=== PATIENT | male | born 1940 | race Caucasian/White ===

== ENCOUNTER → 2017-03-29 10:38 | Outpatient (CLI) | payer MEDICARE, OTHER, SELFPAY ==
[2017-03-29 13:01] LABS: Anion Gap 12.6 mEq/L (5-15); Blood Urea Nitrogen 24 mg/dL (7-18); Carbon Dioxide 30 mmol/L (21.0-32.0); Chloride 107 mmol/L (98-107); Creatinine,Serum 1.93 mg/dL (0.70-1.30); Estimated Glomerular Filt Rate 34 ml/min (>60); GFR (African American) 41 ML/MIN (>60); Glucose 130 mg/dL (74-106); Potassium 4.6 mmoL/L (3.5-5.1); Sodium 145 mmol/L (136-145)
[2017-03-29 13:55] LABS: Hemoglobin A1C 5.8 % (0.0-7.0)
== END ==
PROVIDERS: PCP Internal Medicine; Visit Provider Internal Medicine
DX: E11.59 Type 2 diabetes mellitus with other circulatory complications (principal); N18.3 Chronic kidney disease, stage 3 (moderate)
CPT/HCPCS: 36415; 80048; 83036

== ENCOUNTER → 2017-04-06 14:38 | Outpatient (CLI) | payer MEDICARE, OTHER, SELFPAY ==
--- NOTE | 2017-04-06 14:40 | US_ITS ---
US retroperitoneal comp HISTORY: ITS.REASON: ELEVATED LIVER TEST, ABNORMAL CREATININE, S/P STENTS ORDERING PHYSICIAN: Mainor Espinoza PATIENT AGE: 76 years COMPARISON: None FINDINGS: The right kidney is 10 x 5 x 6.5 cm with cortical thinning. No hydronephrosis. No renal mass. The left kidney is 11 x 5 x 7 cm with cortical thinning. No hydronephrosis. IMPRESSION: Bilateral renal cortical thinning otherwise negative renal ultrasound
== END ==
PROVIDERS: Family Provider Internal Medicine; PCP Internal Medicine; Visit Provider Internal Medicine
DX: R94.5 Abnormal results of liver function studies (principal); R94.4 Abnormal results of kidney function studies
CPT/HCPCS: 76770

== ENCOUNTER → 2017-06-26 14:16 | Outpatient (POV) | payer MEDICARE, OTHER, SELFPAY | PROVIDERS: Family Provider Internal Medicine; PCP Internal Medicine; Visit Provider Internal Medicine Nephrology | DX: Z00.00 Encounter for general adult medical examination without abnormal findings (principal) ==

== ENCOUNTER → 2017-06-29 07:53 | Outpatient (CLI) | payer MEDICARE, OTHER, SELFPAY ==
[2017-06-29 08:52] LABS: Basophils % 0.5 % (0.1-2.0); Eosinophils # 0.1 K/mm3 (0.0-0.4); Eosinophils % 1.2 % (0.1-12.0); Hemoglobin 13.5 g/dL (14.1-18.0); Lymphocytes # 1.6 K/mm3 (0.7-4.5); Mean Corpuscular HGB Conc 33.8 g/dL (31.8-35.4); Mean Corpuscular Hemoglobin 33.3 pg (27.0-31.2); Mean Corpuscular Volume 98.6 fl (80-94); Mean Platelet Volume 8.5 fl (7.4-10.4); Monocytes # 0.3 K/mm3 (0.1-1.0); Monocytes % 6.1 % (1.7-9.3); Neutrophils # 2.8 K/mm3 (1.8-7.8); Neutrophils % 59.2 % (37.0-80.0); Platelet Count 155 K/mm3 (142-424); Red Blood Count 4.05 M/mm3 (4.60-6.20); Red Cell Distribution Width 14.8 % (11.5-17.5); White Blood Count 4.7 K/mm3 (4.8-10.8)
[2017-06-29 09:13] LABS: Hemoglobin A1C 5.8 % (0.0-7.0)
[2017-06-29 12:37] LABS: Alanine Aminotransferase 37 U/L (12-78); Albumin Level 4.1 gm/dL (3.4-5.0); Albumin/Globulin Ratio 1.5 (1.1-1.8); Alkaline Phosphatase 86 U/L (46-116); Anion Gap 14.2 mEq/L (5-15); Aspartate Amino Transferase 21 U/L (15-37); Bilirubin,Total 0.6 mg/dL (0.2-1.0); Blood Urea Nitrogen 22 mg/dL (7-18); Calcium 9.3 mg/dL (8.5-10.1); Carbon Dioxide 28 mmol/L (21.0-32.0); Chloride 105 mmol/L (98-107); Creatinine,Serum 1.77 mg/dL (0.70-1.30); Estimated Glomerular Filt Rate 38 ml/min (>60); GFR (African American) 46 ML/MIN (>60); Globulin 2.8 gm/dl (1.3-3.2); Glucose 117 mg/dL (74-106); Potassium 4.2 mmoL/L (3.5-5.1); Sodium 143 mmol/L (136-145); Total Protein,Serum 6.9 gm/dL (6.4-8.2)
[2017-06-29 12:45] LABS: Prostate Specific Ag Screen 4.8 ng/mL (0.0-4.0)
[2017-06-29 14:10] LABS: Chol/HDL Ratio 4.2 (1-3.5); Cholesterol 146 mg/dL (140-200); HDL Cholesterol 35 mg/dL (27-67); LDL Cholesterol 66 mg/dL (0-130); Triglycerides 225 mg/dL (30-200); Uric Acid 9.4 mg/dL (2.6-7.2); VLDL Cholesterol 45 mg/dL (0-40)
== END ==
PROVIDERS: Urology; Visit Provider Internal Medicine
DX: Z79.899 Other long term (current) drug therapy (principal); E78.5 Hyperlipidemia, unspecified; Z12.5 Encounter for screening for malignant neoplasm of prostate
CPT/HCPCS: 36415; 80053; 80061; 83036; 84550; 85025; G0103

== ENCOUNTER → 2017-09-20 12:40 | Outpatient (CLI) | payer MEDICARE, OTHER, SELFPAY ==
--- NOTE | 2017-09-20 12:43 | US_ITS ---
US kidney retroperitoneal comp HISTORY: ITS.REASON: CKD STAGE 3 ORDERING PHYSICIAN: Poncho Garcia PATIENT AGE: 77 years Comparison: None FINDINGS: The right kidney is 10 x 5 x 5 cm. There is mild cortical thinning. No hydronephrosis. Unremarkable echogenicity. No obvious renal mass. The left kidney is 11 x 4.5 x 5.8 cm showed some cortical thinning and cortical scarring along the lower pole. Unremarkable echogenicity with no evidence of mass or hydronephrosis. Bilateral renal blood flow is noted. IMPRESSION: Bilateral renal cortical thinning/scarring. No hydronephrosis
[2017-09-20 13:38] LABS: Microscopic, Urine URINE MICROSCOPIC (MICROSCOPIC)
[2017-09-20 14:05] LABS: Basophils % 0.5 % (0.1-2.0); Eosinophils # 0.1 K/mm3 (0.0-0.4); Eosinophils % 1.1 % (0.1-12.0); Hematocrit 39.9 % (42.0-52.0); Hemoglobin 13.3 g/dL (14.1-18.0); Lymphocytes # 1.7 K/mm3 (0.7-4.5); Lymphocytes % 32.1 K/mm3 (10-50); Mean Corpuscular HGB Conc 33.4 g/dL (31.8-35.4); Mean Corpuscular Hemoglobin 33.4 pg (27.0-31.2); Monocytes # 0.3 K/mm3 (0.1-1.0); Monocytes % 5.1 % (1.7-9.3); Neutrophils # 3.2 K/mm3 (1.8-7.8); Neutrophils % 61.2 % (37.0-80.0); Platelet Count 170 K/mm3 (142-424); Red Blood Count 3.99 M/mm3 (4.60-6.20); Red Cell Distribution Width 15.2 % (11.5-17.5); White Blood Count 5.2 K/mm3 (4.8-10.8)
[2017-09-20 14:44] LABS: Albumin Level 4.1 gm/dL (3.4-5.0); Anion Gap 10.9 mEq/L (5-15); Blood Urea Nitrogen 23 mg/dL (7-18); Carbon Dioxide 28 mmol/L (21.0-32.0); Chloride 107 mmol/L (98-107); Creatinine,Serum 1.82 mg/dL (0.70-1.30); Estimated Glomerular Filt Rate 36 ml/min (>60); GFR (African American) 44 ML/MIN (>60); Glucose 108 mg/dL (74-106); Phosphorous 3.7 mg/dL (2.4-4.9); Potassium 3.9 mmoL/L (3.5-5.1); Sodium 142 mmol/L (136-145); Uric Acid 9.5 mg/dL (2.6-7.2)
[2017-09-20 15:08] LABS: Appearance,Urine CLEAR (Clear); Bilirubin,Urine Negative (Negative); Blood, Urine TRACE-I (Negative); Color,Urine YELLOW (Yellow); Glucose,Urine (UA) Negative (Negative); Ketones,Urine Negative (Negative); Leukocyte Esterase,Urine Negative (Negative); Nitrate,Urine Negative (Negative); Protein,Urine Negative (Negative); Specific Gravity, Urine 1.015 (1.005-1.030); Urobilinogen,Urine 0.2 EU/dl (0.2)
[2017-09-20 15:09] LABS: Creatinine,Urine Random 86 mg/dL (20-320)
[2017-09-20 15:25] LABS: Bacteria,Urine Trace /lpf; WBC,Urine Occasional #/hpf (0-3)
[2017-09-21 16:43] LABS: Calcium, Ionized 5.1 mg/dL (4.5-5.6); Microalbumin, Urine <3.0 ug/mL (Not Estab.); Parathyroid Hormone Intact 62 pg/mL (15-65); Vitamin D 25 Hydroxy 30.1 ng/mL (30.0-100.0)
== END ==
PROVIDERS: Family Provider Internal Medicine; PCP Internal Medicine; Visit Provider Internal Medicine Nephrology
DX: N18.3 Chronic kidney disease, stage 3 (moderate) (principal)
CPT/HCPCS: 36415; 76770; 80069; 81001; 82043; 82330; 82570; 82652; 83970; 84550; 85025

== ENCOUNTER → 2017-11-21 07:34 | Outpatient (CLI) | payer MEDICARE, OTHER, SELFPAY ==
--- NOTE | 2017-11-21 07:35 | US_ITS ---
US aorta HISTORY: Follow-up aortic aneurysm ITS.REASON: AAA COMPARISON: 11/22/2016 FINDINGS: The maximum AP diameter of the aorta is 3.7 cm previously at 3.4 cm. At the level of the umbilicus. At the bifurcation the aorta measures 3.2 cm in transverse dimension previously 2.7 cm. Proximal common iliacs are unremarkable. IMPRESSION: Slightly enlarging fusiform abdominal aortic aneurysm with maximum AP diameter of 3.7 cm slightly larger when compared to the previous exam. The lower dimensions are also larger at 3.2 cm previously 2.7 cm.
== END ==
PROVIDERS: Family Provider Internal Medicine; PCP Internal Medicine; Visit Provider Internal Medicine
DX: I71.4 Abdominal aortic aneurysm, without rupture (principal)
CPT/HCPCS: 76770

== ENCOUNTER → 2017-12-20 10:43 | Outpatient (CLI) | payer MEDICARE, OTHER, SELFPAY ==
[2017-12-20 11:05] LABS: Basophils % 0.7 % (0.1-2.0); Eosinophils # 0.1 K/mm3 (0.0-0.4); Eosinophils % 1.7 % (0.1-12.0); Hematocrit 37.6 % (42.0-52.0); Hemoglobin 12.7 g/dL (14.1-18.0); Lymphocytes # 1.2 K/mm3 (0.7-4.5); Lymphocytes % 29.5 K/mm3 (10-50); Mean Corpuscular HGB Conc 33.8 g/dL (31.8-35.4); Mean Corpuscular Hemoglobin 34.2 pg (27.0-31.2); Mean Corpuscular Volume 101.2 fl (80-94); Mean Platelet Volume 8.5 fl (7.4-10.4); Monocytes # 0.3 K/mm3 (0.1-1.0); Monocytes % 6.3 % (1.7-9.3); Neutrophils # 2.5 K/mm3 (1.8-7.8); Neutrophils % 61.8 % (37.0-80.0); Platelet Count 169 K/mm3 (142-424); Red Blood Count 3.71 M/mm3 (4.60-6.20); Red Cell Distribution Width 15.5 % (11.5-17.5)
[2017-12-20 13:23] LABS: Hemoglobin A1C 5.6 % (0.0-7.0)
[2017-12-20 14:00] LABS: Alanine Aminotransferase 33 U/L (12-78); Albumin Level 4.1 gm/dL (3.4-5.0); Albumin/Globulin Ratio 1.4 (1.1-1.8); Alkaline Phosphatase 108 U/L (46-116); Anion Gap 11.3 mEq/L (5-15); Aspartate Amino Transferase 22 U/L (15-37); Bilirubin,Total 0.6 mg/dL (0.2-1.0); Blood Urea Nitrogen 26 mg/dL (7-18); Calcium 9.2 mg/dL (8.5-10.1); Carbon Dioxide 30 mmol/L (21.0-32.0); Chloride 107 mmol/L (98-107); Chol/HDL Ratio 3.9 (1-3.5); Cholesterol 130 mg/dL (140-200); Creatinine,Serum 1.88 mg/dL (0.70-1.30); Estimated Glomerular Filt Rate 35 ml/min (>60); GFR (African American) 43 ML/MIN (>60); Globulin 2.9 gm/dl (1.3-3.2); Glucose 125 mg/dL (74-106); HDL Cholesterol 33 mg/dL (27-67); LDL Cholesterol 35 mg/dL (0-130); Potassium 4.3 mmoL/L (3.5-5.1); Prostate Specific Ag, Diagnost 5.46 ng/mL (0.0-4.0); Sodium 144 mmol/L (136-145); Triglycerides 312 mg/dL (30-200); Uric Acid 8.8 mg/dL (2.6-7.2); VLDL Cholesterol 62 mg/dL (0-40)
== END ==
PROVIDERS: Visit Provider Internal Medicine
DX: E11.42 Type 2 diabetes mellitus with diabetic polyneuropathy (principal); E11.59 Type 2 diabetes mellitus with other circulatory complications; E78.5 Hyperlipidemia, unspecified; R97.20 Elevated prostate specific antigen [PSA]
CPT/HCPCS: 36415; 80053; 80061; 83036; 84153; 84550; 85025

== ENCOUNTER → 2018-04-16 09:57 | Outpatient (CLI) | payer MEDICARE, SELFPAY ==
[2018-04-16 10:22] LABS: Basophils % 0.5 % (0.1-2.0); Eosinophils # 0.1 K/mm3 (0.0-0.4); Eosinophils % 1.1 % (0.1-12.0); Hematocrit 40.5 % (42.0-52.0); Hemoglobin 13.6 g/dL (14.1-18.0); Lymphocytes # 1.6 K/mm3 (0.7-4.5); Lymphocytes % 30.5 % (10-50); Mean Corpuscular HGB Conc 33.5 g/dL (31.8-35.4); Mean Corpuscular Hemoglobin 33.1 pg (27.0-31.2); Mean Corpuscular Volume 98.7 fl (80-94); Mean Platelet Volume 8.3 fl (7.4-10.4); Monocytes # 0.2 K/mm3 (0.1-1.0); Monocytes % 4.3 % (1.7-9.3); Neutrophils # 3.3 K/mm3 (1.8-7.8); Neutrophils % 63.7 % (37.0-80.0); Platelet Count 182 K/mm3 (142-424); Red Blood Count 4.11 M/mm3 (4.60-6.20); White Blood Count 5.1 K/mm3 (4.8-10.8)
[2018-04-16 11:29] LABS: Blood Urea Nitrogen 22 mg/dL (7-18); Calcium 9.3 mg/dL (8.5-10.1); Carbon Dioxide 28 mmol/L (21.0-32.0); Chloride 104 mmol/L (98-107); Estimated Glomerular Filt Rate 39 ml/min (>60); GFR (African American) 48 ML/MIN (>60); Glucose 135 mg/dL (74-106); Phosphorous 3.1 mg/dL (2.4-4.9); Sodium 143 mmol/L (136-145); Uric Acid 7.6 mg/dL (2.6-7.2)
== END ==
PROVIDERS: Visit Provider Internal Medicine Nephrology
DX: N18.3 Chronic kidney disease, stage 3 (moderate) (principal)
CPT/HCPCS: 36415; 80069; 84550; 85025

== ENCOUNTER → 2018-04-18 08:07 | Outpatient (CLI) | payer MEDICARE, BC, SELFPAY ==
--- NOTE | 2018-04-18 08:09 | US_ITS ---
US abdomen complete HISTORY: Follow-up abdominal aortic aneurysm ITS.REASON: aaa ORDERING PHYSICIAN: Claude Howard MD PATIENT AGE: 77 years COMPARISON: 11-21-17 FINDINGS: Fusiform abdominal aortic aneurysm once again noted measuring up to 3.7 cm in AP dimension similar to the previous exam. Maximum transverse dimension is 3.6 cm also similar. Aorta is dilated to the bifurcation measuring up to 3 cm at the bifurcation. Proximal common iliacs are not well delineated. IMPRESSION: Overall no significant change 3.7 cm fusiform abdominal aortic aneurysm
== END ==
PROVIDERS: PCP Internal Medicine; Visit Provider Internal Medicine
DX: I71.4 Abdominal aortic aneurysm, without rupture (principal); I48.91 Unspecified atrial fibrillation; I25.10 Atherosclerotic heart disease of native coronary artery without angina pectoris; N18.9 Chronic kidney disease, unspecified
CPT/HCPCS: 76700; 76770

== ENCOUNTER → 2018-06-04 13:04 | Outpatient (POV) | payer MEDICARE, BC, SELFPAY | PROVIDERS: Visit Provider Internal Medicine Nephrology | DX: Z00.00 Encounter for general adult medical examination without abnormal findings (principal) ==

== ENCOUNTER → 2018-07-04 10:57 | Outpatient (CLI) | payer MEDICARE, BC, SELFPAY ==
[2018-07-04 12:53] LABS: Alanine Aminotransferase 31 U/L (12-78); Albumin Level 4.4 gm/dL (3.4-5.0); Albumin/Globulin Ratio 1.5 (1.1-1.8); Alkaline Phosphatase 93 U/L (46-116); Anion Gap 13.4 mEq/L (5-15); Aspartate Amino Transferase 17 U/L (15-37); Bilirubin,Total 0.8 mg/dL (0.2-1.0); Blood Urea Nitrogen 57 mg/dL (7-18); Calcium 9.3 mg/dL (8.5-10.1); Carbon Dioxide 30 mmol/L (21.0-32.0); Chloride 100 mmol/L (98-107); Chol/HDL Ratio 4.7 (1-3.5); Cholesterol 140 mg/dL (140-200); Creatinine,Serum 2.89 mg/dL (0.70-1.30); Estimated Glomerular Filt Rate 21 ml/min (>60); GFR (African American) 26 ML/MIN (>60); Glucose 107 mg/dL (74-106); HDL Cholesterol 30 mg/dL (27-67); LDL Cholesterol 39 mg/dL (0-130); Potassium 3.4 mmoL/L (3.5-5.1); Prostate Specific Ag Screen 9.4 ng/mL (0.0-4.0); Sodium 140 mmol/L (136-145); Total Protein,Serum 7.4 gm/dL (6.4-8.2); Triglycerides 353 mg/dL (30-200); VLDL Cholesterol 71 mg/dL (0-40)
[2018-07-05 10:52] LABS: Microalbumin, Urine 9.5 ug/mL (Not Estab.)
== END ==
PROVIDERS: Visit Provider Internal Medicine
DX: E11.42 Type 2 diabetes mellitus with diabetic polyneuropathy (principal); I10 Essential (primary) hypertension; I25.10 Atherosclerotic heart disease of native coronary artery without angina pectoris; Z12.5 Encounter for screening for malignant neoplasm of prostate
CPT/HCPCS: 36415; 80053; 80061; 82043; 83036; G0103

== ENCOUNTER → 2018-07-17 13:15 | Outpatient (CLI) | payer MEDICARE, BC, SELFPAY ==
[2018-07-17 15:40] LABS: Anion Gap 15.7 mEq/L (5-15); Blood Urea Nitrogen 31 mg/dL (7-18); Calcium 9.1 mg/dL (8.5-10.1); Carbon Dioxide 25 mmol/L (21.0-32.0); Chloride 106 mmol/L (98-107); Estimated Glomerular Filt Rate 33 ml/min (>60); GFR (African American) 40 ML/MIN (>60); Glucose 96 mg/dL (74-106); Potassium 3.7 mmoL/L (3.5-5.1); Sodium 143 mmol/L (136-145)
== END ==
PROVIDERS: PCP Internal Medicine; Visit Provider Urology
DX: I25.10 Atherosclerotic heart disease of native coronary artery without angina pectoris; I48.91 Unspecified atrial fibrillation; I71.4 Abdominal aortic aneurysm, without rupture; N18.9 Chronic kidney disease, unspecified
CPT/HCPCS: 36415; 80048

== ENCOUNTER → 2018-07-24 07:31 | Outpatient (CLI) | payer MEDICARE, BC, SELFPAY ==
--- NOTE | 2018-07-24 07:34 | CA_ITS ---
PROCEDURE: 2-D M-mode and color Doppler study INDICATIONS FOR THE TEST: Chest pain COPD Heart Murmur Tobacco SmokingEX Palpitations Fatigue Syncope Edema HypertensionXDiabetes Mellitus Rheumatic Fever SOB SEPULVEDA Obesity HyperlipidemiaX Family History HD Additional History AF,CAD,CABG PATIENT INFORMATION HEIGHT: 65 WEIGHT:185 GENDER: Male B/P:152/83 2-D/M-MODE INTERPRETATION: 2-D MEASUREMENTS OBSERVED VALUES IN CMS Right Ventricular Dimension (RVDd) 1.7 Interventricular Septum (Thickness)(IVsd) 1.0 Left Ventricular Internal Dimensions(LVIDd) 5.6 Left Ventricular Posterior Wall (Thickness)(LVPWd) 1.1 Aortic Root 3.1 Aortic Cusp Separation 1.7 Left Atrial Dimensions (LAD) 4.1 2D 1. The atrium is mildly enlarged, left ventricle is normal size, mild concentric left ventricular hypertrophy, visually estimated ejection fraction 45%, there is marked hypokinesis involving the basal septum, inferior, inferior basal and posterobasal wall. 2. The right atrium and right ventricle are normal size and contractility. 3. The aortic valve is thickened and calcified leaflet continue to display mobility. 4. The mitral and tricuspid valve leaflets are minimally thickened. 5. The pulmonic valve is poorly present. 6. No significant pericardial effusion noted. DOPPLER INTERROGATION: Doppler interrogation of the aortic, mitral and tricuspid valve reveals presence of mild mitral and tricuspid regurgitation, tricuspid regurgitation jet velocity is inadequate for calculation of the right ventricular systolic pressure, diastolic parameters are inconclusive. CONCLUSION: 1. Mildly enlarged left atrium, normal left ventricular size, mild concentric left ventricular hypertrophy, visually estimated ejection fraction 45% with segmental wall motion abnormality described above, diastolic parameters are inconclusive. 2. Mild mitral and tricuspid regurgitation 3. No significant pericardial effusion noted.
== END ==
PROVIDERS: PCP Internal Medicine; Visit Provider Urology
DX: I10 Essential (primary) hypertension (principal); I25.10 Atherosclerotic heart disease of native coronary artery without angina pectoris; I48.91 Unspecified atrial fibrillation; I71.4 Abdominal aortic aneurysm, without rupture; N18.9 Chronic kidney disease, unspecified
CPT/HCPCS: 93306

== ENCOUNTER → 2018-08-07 11:30 | Outpatient (CLI) | payer MEDICARE, BC, SELFPAY ==
[2018-08-07 12:35] LABS: Anion Gap 12.3 mEq/L (5-15); Blood Urea Nitrogen 26 mg/dL (7-18); Carbon Dioxide 28 mmol/L (21.0-32.0); Chloride 105 mmol/L (98-107); Creatinine,Serum 1.71 mg/dL (0.70-1.30); Estimated Glomerular Filt Rate 39 ml/min (>60); GFR (African American) 47 ML/MIN (>60); Glucose 90 mg/dL (74-106); Potassium 4.3 mmoL/L (3.5-5.1); Sodium 141 mmol/L (136-145)
== END ==
PROVIDERS: Visit Provider Nurse Practitioner Family
DX: I10 Essential (primary) hypertension (principal); I25.10 Atherosclerotic heart disease of native coronary artery without angina pectoris; I48.91 Unspecified atrial fibrillation; I71.4 Abdominal aortic aneurysm, without rupture
CPT/HCPCS: 36415; 80048

== ENCOUNTER → 2019-01-21 09:49 | Outpatient (CLI) | payer MEDICARE, BC, SELFPAY ==
--- NOTE | 2019-01-21 09:56 | XR_ITS ---
PROCEDURE: XR FOOT WT BEARING LT 3V CLINICAL INDICATION: BEKAH HEEL FASCITIS Heel pain COMPARISON: No exams were available for comparison FINDINGS: No fracture or dislocation. No lytic or blastic change. There is normal mineralization. The joint spaces are well-preserved. No significant degenerative/arthritic changes. No erosive changes evident. Other findings:Mildly prominent calcaneal spur and an enthesophyte at the Achilles insertion. IMPRESSION: No acute findings. Dictated by: Albaro Cordon MD 01/21/2019 20:02 Electronically signed by Albaro Cordon MD in [place] 01/21/2019 20:02
--- NOTE | 2019-01-21 09:56 | XR_ITS ---
PROCEDURE: XR FOOT WT BEARING RT 3V CLINICAL INDICATION: BEKAH HEEL FASCITIS Heel pain COMPARISON: No exams were available for comparison FINDINGS: Mild hallux valgus with moderate osteoarthritic change of the 1st metatarsophalangeal joint with bunion formation. Other findings:Mildly prominent spur along the plantar surface of the calcaneus at 12 mm. Small enthesophyte at the Achilles insertion noted. Mild hypertrophic changes at the talus anteriorly. 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
== END ==
PROVIDERS: PCP Internal Medicine; Referring Provider Podiatrist; Visit Provider Internal Medicine
DX: M72.2 Plantar fascial fibromatosis (principal)
CPT/HCPCS: 73630

== ENCOUNTER → 2019-04-08 07:33 | Outpatient (CLI) | payer MEDICARE, BC, SELFPAY ==
--- NOTE | 2019-04-08 07:34 | US_ITS ---
PROCEDURE: US ABD. AORTA SCREENING CLINICAL INDICATION: known 3.7 cm AAA,due f/u COMPARISON: AORTA US aorta from 04/18/2018 FINDINGS: There is again noted fusiform aneurysmal dilatation of the abdominal aorta. At the level approximately 3 centimeters inferior to the xiphoid process aorta measures maximally 3.9 by 3.7 centimeters in transverse and AP dimensions. Previously at this level aorta was approximately 3.5 by 3.7 centimeters. Some interval growth in transverse dimension appears to have occurred. There is no evidence of dissection or leakage. Common iliac arteries are not adequately visualized for assessment. IMPRESSION: Continued presence of fusiform abdominal aortic aneurysm appearing slightly increased in transverse dimension to 3.9 centimeters from 3.5 centimeters on exam 04/18/2018. No dissection or leakage. Dictated by: Jhonny Mathews 04/08/2019 10:22 Electronically signed by Jhonny Mathews in [place] 04/08/2019 10:22
== END ==
PROVIDERS: PCP Internal Medicine; Visit Provider Urology
DX: I10 Essential (primary) hypertension (principal); I25.10 Atherosclerotic heart disease of native coronary artery without angina pectoris; I71.4 Abdominal aortic aneurysm, without rupture
CPT/HCPCS: 76705

== ENCOUNTER → 2019-04-20 07:03 | Outpatient (CLI) | payer MEDICARE, BC, SELFPAY ==
[2019-04-20 12:15] LABS: Prostate Specific Ag, Diagnost 5.25 ng/ml (0.0-4.0)
== END ==
PROVIDERS: Visit Provider Urology
DX: R97.20 Elevated prostate specific antigen [PSA] (principal)
CPT/HCPCS: 36415; 84153

== ENCOUNTER → 2019-07-02 10:02 | Outpatient (CLI) | payer MEDICARE, BC, SELFPAY ==
[2019-07-02 11:06] LABS: Basophils # 0.1 K/mm3 (0-0.2); Basophils % 0.7 % (0.1-2.0); Eosinophils % 0.5 % (0.1-12.0); Hematocrit 45.9 % (42.0-52.0); Hemoglobin 14.7 g/dL (14.1-18.0); Lymphocytes # 1.3 K/mm3 (0.7-4.5); Mean Corpuscular Volume 99.8 fl (80-94); Mean Platelet Volume 7.8 fl (7.4-10.4); Monocytes # 0.4 K/mm3 (0.1-1.0); Monocytes % 5.3 % (1.7-9.3); Neutrophils # 5.4 K/mm3 (1.8-7.8); Neutrophils % 75.5 % (37.0-80.0); Platelet Count 261 K/mm3 (142-424); Red Cell Distribution Width 15.6 % (11.5-17.5); White Blood Count 7.1 K/mm3 (4.8-10.8)
[2019-07-02 13:26] LABS: Hemoglobin A1C 5.8 % (4.0-6.0)
[2019-07-02 20:52] LABS: Chloride 103 mmol/L (98-107); Potassium 4.4 mmoL/L (3.5-5.1); Sodium 138 mmol/L (136-145)
[2019-07-02 20:54] LABS: Alanine Aminotransferase 31 U/L (12-78); Alkaline Phosphatase 86 U/L (38-126); Aspartate Amino Transferase 27 U/L (17-59); Bilirubin,Total 0.7 mg/dl (0.2-1.3); Blood Urea Nitrogen 24 mg/dl (9-20); Estimated Glomerular Filt Rate 46 ml/min (>60); GFR (African American) 55 ML/MIN (>60)
[2019-07-02 20:55] LABS: Albumin Level 4.4 g/dl (3.5-5.0); Albumin/Globulin Ratio 1.9 (1.1-1.8); Anion Gap 11.4 mEq/L (5-15); Calcium 9.6 mg/dl (8.4-10.2); Carbon Dioxide 28 mmol/L (22.0-30.0); Chol/HDL Ratio 3.9 (1-3.5); Cholesterol 128 mg/dl (140-200); Globulin 2.3 g/dL (1.3-3.2); Glucose 116 mg/dl (74-100); HDL Cholesterol 33 mg/dl (40-60); Total Protein,Serum 6.7 g/dl (6.3-8.2); Triglycerides 155 mg/dl (30-150); Uric Acid 6.8 mg/dl (3.5-8.5); VLDL Cholesterol 31 mg/dL (0-40)
[2019-07-02 21:07] LABS: Direct LDL Cholesterol 96.39 mg/dL (100-129)
== END ==
PROVIDERS: Visit Provider Internal Medicine
DX: E11.59 Type 2 diabetes mellitus with other circulatory complications (principal); E11.42 Type 2 diabetes mellitus with diabetic polyneuropathy; I10 Essential (primary) hypertension; E78.5 Hyperlipidemia, unspecified; I25.10 Atherosclerotic heart disease of native coronary artery without angina pectoris; M10.9 Gout, unspecified
CPT/HCPCS: 36415; 80053; 80061; 83036; 84550; 85025

== ENCOUNTER 2019-08-21 09:14 | Emergency (ER) | payer MEDICARE, BC, SELFPAY ==
[2019-08-21 09:15] VITALS: BP 115/62; BP 139/75; PULSE 77; PULSE 84; RESP 18; TEMP 36.8; O2SAT 99; BMI 31.6
[2019-08-21 09:45] VITALS: BP 113/67; PULSE 84; RESP 18; O2SAT 98
[2019-08-21 10:15] VITALS: BP 116/62; PULSE 75; RESP 18; O2SAT 97
[2019-08-21 10:29] VITALS: BP 124/64; PULSE 77; RESP 18; O2SAT 99
--- NOTE | 2019-08-21 10:32 | PC.NURSE ---
Updated patient on plan of care. Aware that doctor will be with him soon.
--- NOTE | 2019-08-21 10:43 | PC.NURSE ---
at beside to suture
[2019-08-21 10:54] VITALS: BP 124/64; PULSE 77; RESP 18; TEMP 36.9; O2SAT 99
--- NOTE | 2019-09-06 19:53 | HMH.EDWNDL ---
ED Disposition Clinical Impression: Laceration, Avulsion of skin Disposition: Home, Self-Care Condition on Discharge: Good Instructions: DI for Laceration Repair Additional Instructions: Stitches out in 7-10 days Referrals: Mainor Espinoza [Primary Care Provider] - - Critical Care Critical Care Time: No Attestation: On 08/21/19, the high probability of a clinically significant, sudden or life threatening deterioration of the following system(s) required my full and direct attention, intervention and personal management. The time I documented below is in addition to time spent performing reported procedures but includes the following listed in this critical care notation. Medical Decision Making - Medical Records Medical records reviewed: Yes: I reviewed the patient's medical records. - Anjel Inquiry Pt receiving controlled substance: No Vital Signs: 08/21/19 09:15 08/21/19 09:45 08/21/19 10:15 Temperature 98.2 F Temperature Source Oral Pulse Rate Pulse Rate [Left] 77 84 75 Respiratory Rate 18 18 18 Blood Pressure Blood Pressure [Right Arm] 115/62 113/67 116/62 Blood Pressure Mean [Right Arm] 79 82 80 Blood Pressure Source [Right Arm] Automatic Cuff Automatic Cuff Automatic Cuff Blood Pressure Position [Right Arm] Sitting Sitting Sitting 02 Sat by Pulse Oximetry 99 98 97 Oxygen Delivery Method Room Air Room Air Room Air 08/21/19 10:29 08/21/19 10:54 Temperature 98.4 F Temperature Source Oral Pulse Rate 77 Pulse Rate [Left] 77 Respiratory Rate 18 18 Blood Pressure 124/64 Blood Pressure [Right Arm] 124/64 Blood Pressure Mean [Right Arm] 84 Blood Pressure Source [Right Arm] Automatic Cuff Blood Pressure Position [Right Arm] Sitting 02 Sat by Pulse Oximetry 99 Oxygen Delivery Method Room Air Room Air - Lab Data Lab results reviewed: Yes: I reviewed the patient's lab results. Orders (Tests/Meds): ED MEDICATIONS Discontinued Medications Generic Name Dose Route Start Last Admin Trade Name Freq PRN Reason Stop Dose Admin Lidocaine HCl 20 ml 08/21/19 09:45 08/21/19 10:30 Lidocaine 1% 20ml Mdv IJ 08/21/19 09:46 20 ml ONCE ONE Administration Wound/Laceration HPI - General Chief Complaint: Wound/Laceration Stated Complaint: AO 0701@0800@home Lac L Pointer Time Seen by Provider: 08/21/19 10:59 Mode of Arrival: Ambulatory Source of Information: Patient Limitations: No Limitations Description of Symptoms (Recalled from ER Triage Doc. 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 Sliced 3rd left finger to left hand. Bleeding moderately on arrival. - History of Present Illness HPI narrative: 79-year-old gentleman presents the emergency department with a laceration to his index finger. He was using a sharp knife and cut his finger and now has a laceration is actively bleeding. Otherwise patient has no other symptomsPatient denies any recent cough or shortness of breath, patient denies any sore throat or headache, patient denies any loss of taste or smell, patient denies any malaise or fatigue, patient denies any abdominal pain nausea vomiting or diarrhea. - Related Data Home Medications Medication Instructions Recorded Confirmed albuterol sulfate 90 mcg/actuation 2 puff INHALATION Q6H PRN 07/10/17 04/23/19 aerosol inhaler clopidogrel 75 mg tablet 75 mg PO DAILY tab 07/10/17 04/23/19 fluticasone propionate 50 2 inh INHALATION BID 07/10/17 04/23/19 mcg/actuation blister powder for inhalation nitroglycerin 0.4 mg sublingual 0.4 mg SUBLINGUAL Q5M PRN 07/10/17 04/23/19 tablet diphenhydramine HCl 25 mg tablet 25 mg PO QHS PRN 07/11/17 04/23/19 ezetimibe 10 mg-simvastatin 40 mg 1 tab PO QPM 07/11/17 04/23/19 tablet loratadine 10 mg tablet 10 mg PO DAILY tab 07/11/17 04/23/19 trazodone 50 mg tablet 50 mg PO QHS PRN tab 07/11/17 04/23/19 allopurinol 100 mg tablet 100 mg PO DAILY 01/09/18 04/23/19 nebivolol 10 mg tablet 5 mg PO DAILY ta
== END 2019-08-21 10:59 | disposition home or self-care (01) ==
PROVIDERS: Emergency Provider Family Medicine; PCP Internal Medicine
DX: S61.213A Laceration without foreign body of left middle finger without damage to nail, initial encounter (principal); W26.0XXA Contact with knife, initial encounter; Y92.019 Unspecified place in single-family (private) house as the place of occurrence of the external cause; I48.91 Unspecified atrial fibrillation; I25.10 Atherosclerotic heart disease of native coronary artery without angina pectoris; E78.5 Hyperlipidemia, unspecified; I10 Essential (primary) hypertension; Z87.442 Personal history of urinary calculi; Z79.899 Other long term (current) drug therapy
CPT/HCPCS: 12001; 96372; 99283

== ENCOUNTER → 2019-10-08 07:45 | Outpatient (CLI) | payer MEDICARE, BC, SELFPAY ==
--- NOTE | 2019-10-08 07:46 | US_ITS ---
PROCEDURE: US ABD. AORTA SCREENING CLINICAL INDICATION: AAA surveillance COMPARISON: US US ABD. AORTA SCREENING from 04/08/2019 FINDINGS: Again noted is the fusiform aneurysmal dilatation of the abdominal aorta. At 2 cm below the level of the xiphoid process the aorta measures 3.7 x 4.3 cm showing a slight interval increase in size from the study 04/08/2019 at which time it measures 3.7 x 3.9 cm. At the level 1 cm above the umbilicus the aorta measures 3.6 by 4.0 cm where as previously it measured 3.7 x 3.8 cm. There is no evidence of leakage. The origins of the common iliac arteries are not adequately visualized for evaluation. IMPRESSION: Basically stable fusiform aneurysmal dilatation of the abdominal aorta with only a few mm increased in size just below the xiphoid process when compared to the previous exam. Dictated by: Dr. Stan Cochran MD 10/08/2019 14:20 Dr. Stan Cochran MD in [place] 10/08/2019 14:20
== END ==
PROVIDERS: PCP Internal Medicine; Visit Provider Urology
DX: I71.4 Abdominal aortic aneurysm, without rupture (principal); E78.5 Hyperlipidemia, unspecified; I10 Essential (primary) hypertension; I25.10 Atherosclerotic heart disease of native coronary artery without angina pectoris; I48.91 Unspecified atrial fibrillation; I73.9 Peripheral vascular disease, unspecified
CPT/HCPCS: 76705

== ENCOUNTER → 2019-10-15 06:40 | Outpatient (CLI) | payer MEDICARE, BC, SELFPAY ==
--- NOTE | 2019-10-15 06:41 | CA_ITS ---
APPROVED REPORT EXAM: Comprehensive 2D, Doppler, and color-flow Echocardiogram Res Counselor: Blanche Villagomez CRT Ht: 5 ft 5 in Wt: 191lbs BSA: 1.94 BP: 117/59 mmHg Indications: Atrial Fibrillation (chronic), Hyperlipidemia, Hypertension/HDD 2D Dimensions LVOT 1.61 cm (M/F) 1.5-2.5 M-Mode Dimensions RVDd 3.86 cm (0.9-2.6) LVDd 5.68 cm (3.5-5.7) LVDs 4.45 cm (3.5-5.7) IVSd 1.40 cm (0.6-1.1) PWd 1.65 cm (0.6-1.1) EF (Teich) 43.30% FS 21.70% EDV (Teich) 158.80 mL ESV (Teich) 90.10 mL LV Diastology E/A Ratio 3.43 Mitral Valve MV A Velocity 25.00 (40-130 cm/s) Left Ventricle Left atrium is mildly enlarged, left ventricle is normal size, mild concentric left ventricular hypertrophy, visually estimated ejection fraction 40%, with marked hypokinesis involving the inferior inferior basal and posterolateral wall. Right Ventricle Right atrium and right ventricle are mildly enlarged with normal contractility. Aortic Valve Aortic valve is thickened and calcified leaflet continue to display good mobility, there is no aortic stenosis or aortic insufficiency. Mitral Valve Mitral valve leaflets are minimally thickened, there is no mitral stenosis, there is moderate mitral regurgitation. Tricuspid Valve Tricuspid valve is grossly normal, there is mild tricuspid regurgitation, tricuspid regurgitation jet velocity is inadequate for calculation of the right ventricular systolic pressure. Pulmonic Valve Pulmonic valve is poorly visualized. Great Vessels Aortic root is normal size. Pericardium No significant pericardial effusion noted. Conclusion 1. Biatrial enlargement, normal left ventricular size, mild concentric left ventricular hypertrophy, visually estimated ejection fraction 45% with segmental wall motion abnormality described above, diastolic parameters are inconclusive. 2. Mildly enlarged right ventricle with normal contractility. 3. Moderate mitral and mild tricuspid regurgitation. 4. No significant pericardial effusion noted. Electronically signed by : Nikita Mendoza, 10/15/2019 21:24:00
--- NOTE | 2019-10-15 06:41 | CA_ITS ---
APPROVED REPORT Exam: Pharmacologic Technologist: Bhavna Gage Ht: 5 ft 5 in Wt: 190 lbs BSA: 1.94 m2 HR: 50 bpm BP: 134/70 mmHg Indications: CAD, HTN Medical History Medications: Simvastatin,,,,, Losartan,,,,, Allopurinol,,,,, HCTZ,,,,, Albuterol,,,,, CloPIdogrel,,,,, Diclofenac,,,,, Famotidine,,,,, LoraTidine,,,,, FluTICASONE,,,,, DiPHENHYDRAMINE,,,,, Trazodone,,,,, Stress Test Details Test: LEXISCAN HR Resting HR: 73 bpm Max Heart Rate (APMHR): 143 bpm Max HR Achieved: 89 bpm Target HR (85% APMHR): 121 bpm % of APMHR: 62 Recovery HR: 74 bpm BP Resting BP: 134.0/70.0 mmHg Max BP: 142.0/66.0 mmHg Recovery BP: 133.0/67.0 mmHg ECG Clinical Exercise duration: 04:00 min Highest Stage Achieved: Exercise capacity: 1.0 METs Stress ECG Conclusion Resting EKG: Atrial fibrillation, low voltage QRS, T wave abnormalities inferiorly and laterally, PVCs vs aberrant beats. Symptoms: Shortness of Air, mild malaise. No chest pain. Arrhythmias/Ectopy: Occasional PVC or abberantly conducted beats. ST-T Changes: No significant changes. Conclusion: Unremarkable Lexiscan stress. Myoview images reported separately. Test Summary REST . . . . . . . Resting REST 05:07 . . 73 . 134/ 70 . . Stage 1 . . . . . . . Myoview Injected Stage 1 01:00 . . 79 . . . . Stage 2 01:00 . . 78 . 141/ 71 . . Stage 3 01:00 . . 78 . 141/ 67 . . Stage 4 01:00 . . 74 . 142/ 66 . Stop exercise at 04:00 RECOVERY 01:00 . . 81 . . . . RECOVERY 02:00 . . 80 . 137/ 71 . . RECOVERY 03:00 . . 81 . 137/ 71 . . RECOVERY 03:33 . . 72 . 133/ 67 . . Electronically signed by : Nikita Mendoza, 10/15/2019 19:03:33
--- NOTE | 2019-10-15 06:41 | NM_ITS ---
APPROVED REPORT Exam: Nuclear Stress Test Indication: SOB, Fatigue, CAD, CABG, HTN, Family history Patient Location: Outpatient Stress Tech: Bhavna Gage SC Tech:Cassia Pedraza, ARRT, RT (R)(N) Ht: 5 ft 5 in Wt: 190 lbs HR: 50 bpm BP: 134/70 mmHg BSA: 1.94 m2 BMI: 31.6 History: SOB, Fatigue, CAD, CABG, HTN, Family history Procedure: Patient received a 0.4 mg of intravenous Lexiscan, resting heart rate 50 bpm, resting blood pressure 134/70 mmHg, with Lexiscan maximum heart rate achived was 78 bpm which is Less than 85 % of the maximum predicted heart rate and blood pressure was 141/71 mmHg. With Lexiscan, patient denied any complaint of chest pain. Electrocardiogram Resting electrocardiogram showed atrial fibrillation lateral ST-T wave changes consistent with subendocardial ischemia, with Lexiscan there is less than 1.[address] segment depression noted from the baseline EKG. The EKG portion of the Lexiscan Myoview is nondiagnostic. Cardiac Stress and Resting SPECT Images: Cardiac Stress and Resting SPECT images were obtained using technetium 99m Myoview 32.5 mCi stress and 10.82 mCi at rest. Gated SPECT with analysis of segmental wall motion and calculation of the ejection fraction also done. Cardiac stress and rest SPECT images show a moderate size area of fixed defect involving the inferolateral wall consistent with area of myocardial scarring with minimal amina-infarct ischemia. Computer derived ejection fraction is 45% with mild inferolateral wall hypokinesis. Right ventricle is mildly enlarged with normal contractility. Conclusion: 1. The EKG portion of the Lexiscan Myoview is nondiagnostic. 2. Scintigraphic evidence of myocardial scarring involving the inferolateral wall, with minimal amina-infarct ischemia. Computer derived ejection fraction is 45% with segmental wall motion abnormality described above, right ventricle is mildly enlarged with normal contractility. 3. Abnormal Lexiscan Myoview study. Electronically signed by : Nikita Mendoza, 10/15/2019 19:05:55
--- NOTE | 2019-10-15 08:44 | HMH.ITSHM ---
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 []TRAZODONE TAMSULOSIN RIVAROXABAN NITRO NEBIVOLOL LOSARTAN LORATADINE HCTZ FAMOTIDINE EZETIMIBE DIPHENHYDRAMINE DICLOFENAC CLOPIDOGREL ALLOPURINOL ALBUTEROL
== END ==
PROVIDERS: PCP Internal Medicine; Visit Provider Nurse Practitioner Family
DX: I25.10 Atherosclerotic heart disease of native coronary artery without angina pectoris (principal); E78.2 Mixed hyperlipidemia; I10 Essential (primary) hypertension; I48.20 Chronic atrial fibrillation, unspecified; I71.4 Abdominal aortic aneurysm, without rupture; I73.9 Peripheral vascular disease, unspecified; N18.3 Chronic kidney disease, stage 3 (moderate); R06.00 Dyspnea, unspecified
CPT/HCPCS: 78452; 93017; 93306; A9502; J2785

== ENCOUNTER → 2019-10-16 10:10 | Outpatient (CLI) | payer MEDICARE, BC, SELFPAY ==
[2019-10-16 12:12] LABS: Prostate Specific Ag, Diagnost 4.54 ng/ml (0.0-4.0)
== END ==
PROVIDERS: Visit Provider Urology
DX: R97.20 Elevated prostate specific antigen [PSA] (principal)
CPT/HCPCS: 36415; 84153

== ENCOUNTER → 2019-11-05 11:57 | Outpatient (CLI) | payer MEDICARE, BC, SELFPAY ==
[2019-11-05 13:10] LABS: Chloride 104 mmol/L (98-107)
[2019-11-05 13:11] LABS: Potassium 4.7 mmoL/L (3.5-5.1); Sodium 141 mmol/L (136-145)
[2019-11-05 13:13] LABS: Blood Urea Nitrogen 28 mg/dl (9-20)
[2019-11-05 13:14] LABS: Anion Gap 11.7 mEq/L (5-15); Calcium 9.3 mg/dl (8.4-10.2); Carbon Dioxide 30 mmol/L (22.0-30.0); Estimated Glomerular Filt Rate 37 ml/min (>60); GFR (African American) 44 ML/MIN (>60); Glucose 102 mg/dl (74-100)
== END ==
PROVIDERS: Visit Provider Internal Medicine Cardiovascular Disease
DX: E78.5 Hyperlipidemia, unspecified (principal); I25.10 Atherosclerotic heart disease of native coronary artery without angina pectoris; I48.91 Unspecified atrial fibrillation; I71.4 Abdominal aortic aneurysm, without rupture; I73.9 Peripheral vascular disease, unspecified; N18.9 Chronic kidney disease, unspecified; R06.00 Dyspnea, unspecified; R06.01 Orthopnea; R60.0 Localized edema
CPT/HCPCS: 36415; 80048

== ENCOUNTER → 2019-11-22 09:44 | Outpatient (CLI) | payer MEDICARE, BC, SELFPAY ==
[2019-11-22 12:46] LABS: Chloride 105 mmol/L (98-107); Potassium 4.2 mmoL/L (3.5-5.1); Sodium 143 mmol/L (136-145)
[2019-11-22 12:49] LABS: Anion Gap 10.2 mEq/L (5-15); Blood Urea Nitrogen 15 mg/dl (9-20); Carbon Dioxide 32 mmol/L (22.0-30.0); Estimated Glomerular Filt Rate 49 ml/min (>60); GFR (African American) 59 ML/MIN (>60)
[2019-11-22 12:50] LABS: Calcium 9.3 mg/dl (8.4-10.2); Glucose 171 mg/dl (74-100)
== END ==
PROVIDERS: Urology; Visit Provider Internal Medicine Cardiovascular Disease
DX: I50.9 Heart failure, unspecified (principal); R06.00 Dyspnea, unspecified
CPT/HCPCS: 36415; 80048

== ENCOUNTER → 2019-11-30 08:42 | Outpatient (CLI) | payer MEDICARE, BC, SELFPAY ==
[2019-11-30 11:11] LABS: Coronavirus 19 IgG Antibody Negative (Negative); Coronavirus 19 IgM Antibody Negative (Negative)
== END ==
PROVIDERS: Visit Provider Internal Medicine Gastroenterology
DX: Z01.89 Encounter for other specified special examinations (principal); Z12.11 Encounter for screening for malignant neoplasm of colon
CPT/HCPCS: 36415; 86328

== ENCOUNTER 2019-12-02 09:45 | Day surgery (SDC) | payer MEDICARE, BC, SELFPAY ==
[2019-11-26 14:07] VITALS: BMI 31.6
[2019-12-02] VITALS (8 sets, daily range): BP systolic 100–149; BP diastolic 58–75; PULSE 77–90; RESP 17–18; TEMP 36.4–36.7; O2SAT 95–98
--- NOTE | 2019-12-02 10:23 | HMH.ANESCL ---
[facility] Anesthesia Checklist - Patient Identification Patient Identification: Arm Band - Structural Data Admitted From: Home Planned Operative Procedure/s: colonoscopy Consent for Planned Operative Procedure(s) Verified: Yes Verified Documents: Surgical Consent, History and Physical - NPO Status Verified Time NPO: 00:00 - Additional verifications Anesthesia Reactions: No - Airway Assessment C-Spine Mobility Assessed: Yes (mp2) TMJ Mobility Assessed: Yes Dentition: Dentures-good fit - Neurological Assessment Level of Consciousness: Awake, Alert - Anesthesia Plan Anesthesia Risk discussed: Yes Anesthesia Plan: Verified ASA Class: III Anesthesia Type: MAC [facility] History I have reviewed the patient's past medical history: Yes Medical History: Reports:: Aneurysm, Atrial Fibrillation, BPH, Carotid Stenosis, Congestive Heart Failure, Coronary Artery Disease, Hyperlipidemia, Hypertension, Kidney Stones, Myocardial Infarction, Renal Disease Denies:: Cancer, Diabetes Mellitus Type 1, Diabetes Mellitus Type 2, Internal Pacemaker, MRSA, Seizures *Have you ever received a pneumonia vaccine?: No *Have you received a flu vaccine this season?: Yes Other Medical History: Reports: Anemia, Arthritis Anesthesia experience/problems:: nac Other Surgeries: Yes: Angioplasty, CABG, Cardiac Catheterization, Cardiac Surgery, Colonoscopy, Coronary Stent, Hernia Repair. No: Pacemaker Amputation: No Fractures: No - *Social History Last grade of school completed: High school graduate Smoking Status: Former smoker Tobacco Type: cigarettes Smoking End Date: 2016 Alcohol Intake: never Substance Use Type: denies use *Occupational Status:: retired Housing: house Household Members: spouse *Travel in the last 8 weeks: None Family Hx:: Hyperlipidemia, Heart Attack, Hypertension
--- NOTE | 2019-12-02 10:58 | P.PCN_ITS ---
[facility] Procedure Note Procedure Note:: Colonoscopy Procedure Report: Colonoscopy with cold snare polypectomy Endoscopist: Randy Ward II, MD Referring physician: Mainor Espinoza MD Date of Procedure: December 02, 2019 Equipment: Olympus 180 variable stiffness pediatric colonoscope Sedation: MAC sedation Indication: Mr. Rodríguez is a 79-year-old gentleman who has had episodic diarrhea with associated emesis/vomiting that began 6 months ago. His last episode was more than a month ago. He reports no rectal bleeding, abdominal pain, weight loss or family history of colon cancer. He reports no family history of colitis or Crohn's disease. His last colonoscopy was more than 30 years ago. Procedure: Prior to the procedure, a history and physical exam was performed, and patient's medications and allergies were reviewed. The risks, benefits and alternatives of the sedation and procedure were discussed with the patient. All questions were answered and informed consent was obtained. The patient was brought to the procedure room. Patient identification and proposed procedure were verified by the physician and the nurse. The patient was placed in a left lateral decubitus position and the scope was passed under direct vision. Throughout the procedure, the patient's blood pressure, pulse, and oxygen saturations were monitored continuously. The colonoscopy was accomplished without difficulty. The patient tolerated the procedure well. Findings: On digital rectal examination there was normal rectal tone. There were no external hemorrhoids. The colonoscope was introduced through the anal canal to the rectum and advanced to the cecum. The ileocecal valve and appendiceal orifice were identified. The scope was advanced a short distance into the ileum which appeared grossly normal. The scope was then withdrawn into the colon. There were 4 colon polyps (cecum x1 (4 mm), ascending x1 (4 mm) and sigmoid x2 (4 and 5 mm)) which were all removed via cold snare polypectomy. There were mildly scattered diverticuli throughout the descending and sigmoid colon (LEFT colon). The rectum itself was normal. Upon retroflexion within the rectum there were grade 1-2 internal hemorrhoids. The preparation was excellent throughout with Yoder Preparation Score of 9. The cecal time was 12 minutes. Impression: 1. Diminutive colonic polyps x4 2. Mild left-sided diverticulosis 3. Grade 1-2 internal hemorrhoids Plan: I would encourage bulk fiber supplementation on a maintenance basis. I will follow-up the polyp histology and determine whether repeat surveillance colonoscopy is warranted.
== END 2019-12-02 12:15 | disposition home or self-care (01) ==
LOC: OUTP 09:49
PROVIDERS: PCP Internal Medicine; Visit Provider Internal Medicine Gastroenterology
PROC: 0DJD8ZZ Inspection of Lower Intestinal Tract, Via Natural or Artificial Opening Endoscopic (ICD-10-PCS; CPT 45378; principal; 2019-12-02 11:00)
DX: K63.5 Polyp of colon (principal); K57.30 Diverticulosis of large intestine without perforation or abscess without bleeding; K64.0 First degree hemorrhoids; E78.5 Hyperlipidemia, unspecified; I11.0 Hypertensive heart disease with heart failure; Z95.1 Presence of aortocoronary bypass graft; I50.9 Heart failure, unspecified; I25.2 Old myocardial infarction; Z80.9 Family history of malignant neoplasm, unspecified; Z82.49 Family history of ischemic heart disease and other diseases of the circulatory system; Z79.899 Other long term (current) drug therapy
CPT/HCPCS: 45385; 88305

== ENCOUNTER → 2020-01-08 09:28 | Outpatient (CLI) | payer MEDICARE, BC, SELFPAY ==
[2020-01-08 10:16] LABS: Basophils % 0.6 % (0.1-2.0); Eosinophils % 0.7 % (0.1-12.0); Hematocrit 47.9 % (42.0-52.0); Hemoglobin 15.2 g/dL (14.1-18.0); Lymphocytes # 1.4 K/mm3 (0.7-4.5); Lymphocytes % 23.7 % (10-50); Mean Corpuscular HGB Conc 31.7 g/dL (31.8-35.4); Mean Corpuscular Hemoglobin 32.7 pg (27.0-31.2); Mean Platelet Volume 8.4 fl (7.4-10.4); Monocytes # 0.3 K/mm3 (0.1-1.0); Monocytes % 5.1 % (1.7-9.3); Neutrophils # 4.2 K/mm3 (1.8-7.8); Platelet Count 177 K/mm3 (142-424); Red Blood Count 4.65 M/mm3 (4.60-6.20); Red Cell Distribution Width 15.6 % (11.5-17.5); White Blood Count 5.9 K/mm3 (4.8-10.8)
[2020-01-08 11:21] LABS: Alanine Aminotransferase 21 U/L (12-78); Albumin Level 4.4 g/dl (3.5-5.0); Alkaline Phosphatase 98 U/L (38-126); Anion Gap 11.7 mEq/L (5-15); Aspartate Amino Transferase 25 U/L (17-59); Bilirubin,Total 0.9 mg/dl (0.2-1.3); Blood Urea Nitrogen 18 mg/dl (9-20); Calcium 9.6 mg/dl (8.4-10.2); Carbon Dioxide 29 mmol/L (22.0-30.0); Chloride 105 mmol/L (98-107); Chol/HDL Ratio 3.7 (1-3.5); Cholesterol 137 mg/dl (140-200); Estimated Glomerular Filt Rate 49 ml/min (>60); GFR (African American) 59 ML/MIN (>60); Globulin 2.2 g/dL (1.3-3.2); Glucose 113 mg/dl (74-100); HDL Cholesterol 37 mg/dl (40-60); Potassium 4.7 mmoL/L (3.5-5.1); Sodium 141 mmol/L (136-145); Total Protein,Serum 6.6 g/dl (6.3-8.2); Triglycerides 160 mg/dl (30-150); Uric Acid 4.8 mg/dl (3.5-8.5); VLDL Cholesterol 32 mg/dL (0-40)
[2020-01-08 11:30] LABS: NT Pro Brain Natriuretic Pep. 918 pg/mL (0-450)
[2020-01-08 11:33] LABS: Direct LDL Cholesterol 90.24 mg/dL (100-129)
[2020-01-08 13:45] LABS: Hemoglobin A1C 5.5 % (4.0-6.0)
== END ==
PROVIDERS: Visit Provider Internal Medicine
DX: E11.59 Type 2 diabetes mellitus with other circulatory complications (principal); E11.42 Type 2 diabetes mellitus with diabetic polyneuropathy; I12.9 Hypertensive chronic kidney disease with stage 1 through stage 4 chronic kidney disease, or unspecified chronic kidney disease; N18.30 Chronic kidney disease, stage 3 unspecified; I25.10 Atherosclerotic heart disease of native coronary artery without angina pectoris; M10.9 Gout, unspecified; I50.9 Heart failure, unspecified
CPT/HCPCS: 36415; 80053; 80061; 83036; 83880; 84550; 85025

== ENCOUNTER → 2020-09-04 07:33 | Outpatient (CLI) | payer MEDICARE, BC, SELFPAY ==
--- NOTE | 2020-09-04 07:33 | US_ITS ---
PROCEDURE: US ABD. AORTA SCREENING CLINICAL INDICATION: AAA Follow-up aneurysm COMPARISON: US US ABD. AORTA SCREENING from 10/08/2019 FINDINGS: Fusiform mid abdominal aortic aneurysm once again noted measuring 3.6 cm in AP dimension and 4 cm transverse overall not significantly changed. Proximal common iliacs are unremarkable. IMPRESSION: No change abdominal aortic aneurysm 3.6 x 4 cm Dictated by: Albaro Cordon MD 09/04/2020 12:07 Albaro Cordon MD in [place] 09/04/2020 12:07
--- NOTE | 2020-09-04 07:42 | CA_ITS ---
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 69.00 (40-130 cm/s) MV A Velocity 26.00 (40-130 cm/s) E/A Ratio 2.68 MV Decel. Time 177.00 (160-240 ms) MV PHT 52.00 ms Tricuspid Valve TR P. Velocity 268.00 cm/s RAP Estimate 10.00 mmHg RVSP 38.70 mmHg Left Ventricle Left atrium is moderately enlarged, left ventricle is normal size, mild concentric left ventricular hypertrophy, visually estimated ejection fraction approximately 45%, there is marked hypokinesis involving the inferior basal wall. Diastolic parameters are inconclusive. Right Ventricle Right atrium and right ventricle mildly enlarged with normal contractility. Aortic Valve Aortic valve is minimally thickened and calcified, there is no aortic stenosis or aortic insufficiency. Mitral Valve Mitral valve leaflets are minimally thickened, there is mild mitral regurgitation. Tricuspid Valve Tricuspid grossly normal, there is mild tricuspid regurgitation, calculated right ventricular systolic pressure 38 mmHg. Pulmonic Valve Pulmonic valve is poorly visualized. Great Vessels Aortic root is normal size. Pericardium No significant pericardial effusion noted. Conclusion 1. Moderately enlarged left atrium, normal left ventricular size, mild concentric left ventricular hypertrophy, visually estimated ejection fraction 45% with segmental wall motion abnormality described above, diastolic parameters are inconclusive. 2. Mild mitral and tricuspid regurgitation, calculated right ventricular systolic pressure is 38 mmHg. 3. No significant pericardial effusion noted. Electronically signed by : Nikita Mendoza, 09/04/2020 10:37:01
== END ==
PROVIDERS: PCP Internal Medicine; Visit Provider Physician Assistant
DX: E78.5 Hyperlipidemia, unspecified (principal); I10 Essential (primary) hypertension; I25.10 Atherosclerotic heart disease of native coronary artery without angina pectoris; I48.91 Unspecified atrial fibrillation; I50.20 Unspecified systolic (congestive) heart failure; I71.4 Abdominal aortic aneurysm, without rupture; I73.9 Peripheral vascular disease, unspecified; N18.9 Chronic kidney disease, unspecified; R06.00 Dyspnea, unspecified
CPT/HCPCS: 76705; 93306

== ENCOUNTER → 2020-09-04 08:55 | Outpatient (CLI) | payer MEDICARE, BC, SELFPAY ==
[2020-09-04 10:08] LABS: Basophils # 0.1 K/mm3 (0-0.2); Basophils % 0.9 % (0.1-2.0); Eosinophils # 0.1 K/mm3 (0.0-0.4); Hematocrit 47.8 % (42.0-52.0); Hemoglobin 15.9 g/dL (14.1-18.0); Lymphocytes # 1.6 K/mm3 (0.7-4.5); Lymphocytes % 24.1 % (10-50); Mean Corpuscular HGB Conc 33.3 g/dL (31.8-35.4); Mean Corpuscular Hemoglobin 33.4 pg (27.0-31.2); Mean Corpuscular Volume 100.3 fl (80-94); Mean Platelet Volume 8.2 fl (7.4-10.4); Monocytes # 0.4 K/mm3 (0.1-1.0); Monocytes % 5.6 % (1.7-9.3); Neutrophils # 4.6 K/mm3 (1.8-7.8); Neutrophils % 68.4 % (37.0-80.0); Platelet Count 162 K/mm3 (142-424); Red Blood Count 4.77 M/mm3 (4.60-6.20); Red Cell Distribution Width 16.2 % (11.5-17.5); White Blood Count 6.7 K/mm3 (4.8-10.8)
[2020-09-04 10:30] LABS: Alanine Aminotransferase 35 U/L (12-78); Albumin Level 4.6 g/dl (3.5-5.0); Alkaline Phosphatase 97 U/L (38-126); Anion Gap 9.4 mEq/L (5-15); Aspartate Amino Transferase 34 U/L (17-59); Bilirubin,Direct 0.5 mg/dl (0.0-0.4); Bilirubin,Indirect 0.6 mg/dL (0.0-0.9); Bilirubin,Total 1.1 mg/dl (0.2-1.3); Bilirubin,Unconjugated 0.6 mg/dL (0.0-1.1); Blood Urea Nitrogen 15 mg/dl (9-20); Calcium 9.3 mg/dl (8.4-10.2); Carbon Dioxide 29 mmol/L (22.0-30.0); Chloride 107 mmol/L (98-107); Chol/HDL Ratio 3.9 (1-3.5); Cholesterol 136 mg/dl (140-200); Estimated Glomerular Filt Rate 49 ml/min (>60); GFR (African American) 59 ML/MIN (>60); Glucose 110 mg/dl (74-100); HDL Cholesterol 35 mg/dl (40-60); Potassium 4.4 mmoL/L (3.5-5.1); Sodium 141 mmol/L (136-145); Total Protein,Serum 6.7 g/dl (6.3-8.2); Triglycerides 182 mg/dl (30-150); VLDL Cholesterol 36 mg/dL (0-40)
[2020-09-04 10:41] LABS: Direct LDL Cholesterol 74.75 mg/dL (100-129)
[2020-09-04 10:46] LABS: Free T4 (Free Thyroxine) 0.85 ng/dl (0.78-2.19)
[2020-09-04 10:59] LABS: Thyroid Stimulating Hormone 1.14 uIU/mL (0.465-4.68)
== END ==
PROVIDERS: Visit Provider Physician Assistant
DX: E78.5 Hyperlipidemia, unspecified (principal); I25.10 Atherosclerotic heart disease of native coronary artery without angina pectoris; I48.91 Unspecified atrial fibrillation; I50.20 Unspecified systolic (congestive) heart failure; I71.4 Abdominal aortic aneurysm, without rupture; I73.9 Peripheral vascular disease, unspecified; N18.9 Chronic kidney disease, unspecified; R06.00 Dyspnea, unspecified; I11.0 Hypertensive heart disease with heart failure
CPT/HCPCS: 36415; 76705; 80048; 80061; 80076; 84439; 84443; 85025; 93306

== ENCOUNTER → 2020-10-15 07:52 | Outpatient (CLI) | payer MEDICARE, BC, SELFPAY ==
[2020-10-15 10:09] LABS: Prostate Specific Ag, Diagnost 6.09 ng/ml (0.0-4.0)
== END ==
PROVIDERS: Visit Provider Urology
DX: N40.1 Benign prostatic hyperplasia with lower urinary tract symptoms (principal); R97.20 Elevated prostate specific antigen [PSA]
CPT/HCPCS: 36415; 84153

== ENCOUNTER → 2020-11-06 09:35 | Outpatient (CLI) | payer MEDICARE, BC, SELFPAY | PROVIDERS: PCP Internal Medicine; Visit Provider Nurse Practitioner | DX: Z20.822 Contact with and (suspected) exposure to COVID-19 (principal); U07.1 COVID-19 | CPT/HCPCS: C9803; U0003; U0005 ==

== ENCOUNTER → 2020-11-10 10:23 | Outpatient (CLI) | payer MEDICARE, BC, SELFPAY ==
[2020-11-10] VITALS (8 sets, daily range): BP systolic 115–149; BP diastolic 65–84; PULSE 73–107; RESP 16; TEMP 36.7–36.8; O2SAT 93–95
== END ==
PROVIDERS: PCP Internal Medicine; Visit Provider Internal Medicine
DX: U07.1 COVID-19 (principal); Z23 Encounter for immunization
CPT/HCPCS: 96365

== ENCOUNTER 2020-11-24 19:03 | Emergency (ER) | payer MEDICARE, BC, SELFPAY ==
[2020-11-24 19:25] VITALS: BP 122/51; PULSE 90; RESP 18; TEMP 37.8; O2SAT 95; BMI 29.9
--- NOTE | 2020-11-24 19:33 | XR_ITS ---
PROCEDURE INFORMATION: Exam: XR Chest Exam date and time: 11/24/2020 7:33 PM Age: 80 years old Clinical indication: Shortness of breath; Prior surgery; Patient HX: SOA, fever, weakness, tested positive for covid x 2 weeks ago. Former smoker. Open heart TECHNIQUE: Imaging protocol: XR of the chest. Views: 2 views. COMPARISON: AORTA US aorta 04/18/2018 8:30 AM FINDINGS: Lungs: Patchy opacity at the left lung base. Pleural spaces: Unremarkable. No pleural effusion. No pneumothorax. Heart/Mediastinum: Unremarkable. No cardiomegaly. Bones/joints: Degenerative changes of the shoulders. Median sternotomy wires. IMPRESSION: Patchy opacity at the left lung base which may be on the basis of atelectasis or pneumonia. Follow-up to radiographic clearance is recommended.
[2020-11-24 19:34] VITALS: BP 105/51; PULSE 77; RESP 16; TEMP 37.2; O2SAT 94; BMI 29.9
--- NOTE | 2020-11-24 20:00 | HMH.EDUTC ---
[facility] [place] Impression: Viral pneumonia, COVID-19 Disposition: Home, Self-Care Condition on Discharge: Good Instructions: Pneumonia-Adult, DI for COVID-19 (Suspected or Confirmed ), Preventing the Spread of Coronavirus Discharge Instructions Additional Instructions: Drink plenty of fluids. Take tylenol or ibuprofen for pain or fever. Take the medications as directed. Follow up with your regular doctor. GO TO THE ER FOR ANY WORSENING SYMPTOMS Don't start the oral steroids until tomorrow, since you had the shot here today. Make sure you follow up closely with Dr. Espinoza. I would feel better if you would go through the ER tonight for further evaluation, but it is your choice not to. So, please return LIANNE for any worsening symptoms and call Dr. Espinoza' office in the morning. Use the incentive spirometer 10 every couple of hours while you are awake for the next 2 weeks or so. Prescriptions: dexAMETHasone [Decadron] 6 mg PO DAILY 6 Days #6 tab Transmission Status: Received by [facility] guaiFENesin [Mucinex 600mg tablet] 1 - 2 tab PO BIDP PRN #30 tab PRN Reason: Congestion Transmission Status: Received by [facility] Azithromycin [Z-Juan David 250mg Tab*] 250 mg PO UD DOSE PK #6 tab Transmission Status: Received by [facility] Referrals: Mainor Espinoza [Primary Care Provider] - Time of Disposition: 20:32 Medical Decision Making - Medical Records Medical records reviewed: No: I reviewed the patient's medical records. - Anjel Inquiry Pt receiving controlled substance: No Vital Signs: 11/24/20 19:25 11/24/20 19:34 11/24/20 20:45 Temperature 100.1 F H 98.9 F 98.9 F Temperature Source Oral Oral Oral Pulse Rate 77 Pulse Rate [Right] 90 77 Respiratory Rate 18 16 16 Blood Pressure 105/51 L Blood Pressure [Right Arm] 122/51 L 105/51 L Blood Pressure Mean [Right Arm] 74 69 Blood Pressure Source Automatic Cuff Blood Pressure Source [Right Arm] Automatic Cuff Blood Pressure Position Sitting Blood Pressure Position [Right Arm] Sitting 02 Sat by Pulse Oximetry 95 94 L Oxygen Delivery Method Room Air Room Air Room Air - Lab Data Lab results reviewed: Yes: I reviewed the patient's lab results. Orders (Tests/Meds): ED MEDICATIONS Discontinued Medications Generic Name Dose Route Start Last Admin Trade Name Ivonne PRN Reason Stop Dose Admin Ceftriaxone Sodium 1 gm 11/24/20 20:26 11/24/20 20:31 Ceftriaxone 1gm Vial IM 11/24/20 20:27 1 gm ONCE ONE Administration Lidocaine HCl 0 ml 11/24/20 20:26 11/24/20 20:31 Lidocaine 1% 5ml Pf Vial IM 11/24/20 20:27 2.1 ml ONCE ONE Administration Methylprednisolone Sodium Succinate 125 mg 11/24/20 20:26 11/24/20 20:31 Methylprednisolone Sod Succ 125mg Vial IM 11/24/20 20:27 125 mg ONCE ONE [place] [facility] [place] - General Stated complaint: fever, weakness, cough,soa, congestion. loss of ta Time Seen by Provider: 11/24/20 19:50 Mode of Arrival: Ambulatory Source of Information: Patient, Relative Limitations: No Limitations Description of Symptoms (Recalled from Triage Doc. by RN): fever,cough, soa, weakness HEENT Symptoms (Recalled from RN notes): No Resp Symptoms (Recalled from RN notes): Yes Skin Symptoms (Recalled from RN notes): No MS Symptoms (Recalled from RN notes): No Functional Status (Recalled from RN notes): na - History of Present Illness Provider Complaint: He was diagnosed with covid-19 on . He had the BAM infusion on Nov 18. He states that he has been feeling better up until yesterday. Yesterday, he began to cough worse (nonproductive) and have chilling. Since yesterday he had began to feel worse (but he states that he still doesn't feel horrible), have a worsening cough, and have chilling. He has ran a fever up to around 100.5 at times also. He denies any shortness of breath. He denies chest pain. - Related Data Home Medications
[2020-11-24 20:45] VITALS: BP 105/51; PULSE 77; RESP 16; TEMP 37.2; O2SAT 94
== END 2020-11-24 20:47 | disposition home or self-care (01) ==
PROVIDERS: Emergency Provider Nurse Practitioner Family; PCP Internal Medicine
DX: U07.1 COVID-19 (principal); J12.9 Viral pneumonia, unspecified; R43.9 Unspecified disturbances of smell and taste; I48.91 Unspecified atrial fibrillation; I65.29 Occlusion and stenosis of unspecified carotid artery; I25.10 Atherosclerotic heart disease of native coronary artery without angina pectoris; E78.5 Hyperlipidemia, unspecified; I11.0 Hypertensive heart disease with heart failure; I50.9 Heart failure, unspecified; I25.2 Old myocardial infarction; I73.9 Peripheral vascular disease, unspecified; N28.9 Disorder of kidney and ureter, unspecified
CPT/HCPCS: 71046; 96372; 99202; G0463

== ENCOUNTER → 2021-01-05 10:23 | Outpatient (CLI) | payer MEDICARE, BC, SELFPAY ==
[2021-01-05 10:48] LABS: Basophils % 0.6 % (0.1-2.0); Eosinophils % 0.6 % (0.1-12.0); Hematocrit 45.2 % (42.0-52.0); Hemoglobin 15.1 g/dL (14.1-18.0); Lymphocytes # 1.3 K/mm3 (0.7-4.5); Mean Corpuscular HGB Conc 33.4 g/dL (31.8-35.4); Mean Corpuscular Volume 101.8 fl (80-94); Mean Platelet Volume 8.8 fl (7.4-10.4); Monocytes # 0.3 K/mm3 (0.1-1.0); Monocytes % 4.9 % (1.7-9.3); Neutrophils # 4.3 K/mm3 (1.8-7.8); Neutrophils % 71.9 % (37.0-80.0); Platelet Count 167 K/mm3 (142-424); Red Blood Count 4.44 M/mm3 (4.60-6.20); Red Cell Distribution Width 16.9 % (11.5-17.5)
[2021-01-05 11:13] LABS: Hemoglobin A1C 5.6 % (4.0-6.0)
[2021-01-05 11:17] LABS: Alanine Aminotransferase 22 U/L (12-78); Albumin Level 4.2 g/dl (3.5-5.0); Albumin/Globulin Ratio 1.9 (1.1-1.8); Alkaline Phosphatase 99 U/L (38-126); Anion Gap 9.4 mEq/L (5-15); Aspartate Amino Transferase 25 U/L (17-59); Blood Urea Nitrogen 11 mg/dl (9-20); Calcium 9.2 mg/dl (8.4-10.2); Carbon Dioxide 31 mmol/L (22.0-30.0); Chloride 106 mmol/L (98-107); Chol/HDL Ratio 2.6 (1-3.5); Cholesterol 119 mg/dl (140-200); Estimated Glomerular Filt Rate 65 ml/min (>60); GFR (African American) 78 ML/MIN (>60); Globulin 2.2 g/dL (1.3-3.2); Glucose 112 mg/dl (74-100); HDL Cholesterol 45 mg/dl (40-60); Potassium 4.4 mmoL/L (3.5-5.1); Sodium 142 mmol/L (136-145); Total Protein,Serum 6.4 g/dl (6.3-8.2); Triglycerides 112 mg/dl (30-150); Uric Acid 3.3 mg/dl (3.5-8.5); VLDL Cholesterol 22 mg/dL (0-40)
[2021-01-05 11:28] LABS: Direct LDL Cholesterol 94.96 mg/dL (100-129)
[2021-01-05 11:47] LABS: Prostate Specific Ag, Diagnost 4.09 ng/ml (0.0-4.0)
== END ==
PROVIDERS: Visit Provider Internal Medicine
DX: I25.10 Atherosclerotic heart disease of native coronary artery without angina pectoris (principal); I10 Essential (primary) hypertension; E11.42 Type 2 diabetes mellitus with diabetic polyneuropathy; E11.59 Type 2 diabetes mellitus with other circulatory complications; E78.5 Hyperlipidemia, unspecified; N19 Unspecified kidney failure; N40.1 Benign prostatic hyperplasia with lower urinary tract symptoms; M10.9 Gout, unspecified
CPT/HCPCS: 36415; 80053; 80061; 83036; 84153; 84550; 85025

== ENCOUNTER → 2021-01-22 08:05 | Outpatient (CLI) | payer MEDICARE, BC, SELFPAY ==
[2021-01-22 08:51] LABS: Reticulocyte % (Auto) 2.1 % (0.9-3.2)
[2021-01-22 10:31] LABS: Vitamin B12 372 pg/mL (239-931)
[2021-01-22 10:37] LABS: Folate 5.22 ng/mL
== END ==
PROVIDERS: Visit Provider Internal Medicine
DX: R71.8 Other abnormality of red blood cells (principal)
CPT/HCPCS: 36415; 82607; 82746; 85044

== ENCOUNTER → 2021-03-19 07:49 | Outpatient (CLI) | payer MEDICARE, BC, SELFPAY ==
--- NOTE | 2021-03-19 07:49 | US_ITS ---
FINAL REPORT CLINICAL HISTORY: AAA FINDINGS: ULTRASOUND AORTA Limited sonographic images were obtained of the abdominal aorta and iliac arteries. The abdominal aorta measures up to 6.0 x 3.5 cm. This has significantly increased since the prior exam. Iliac arteries are within normal limits. The iliac arteries measure 1.9 and 1.6 cm. IMPRESSION: Significant increase in size of an abdominal aortic aneurysm with dilatation of the iliac arteries. Recommend CT with contrast and vascular surgical evaluation. Reviewed, Interpreted and Dictated by Poncho Hoyt MD Transcribed by Apollo Matute Authenticated by Poncho Hoyt MD on 03/19/2021 11:14:08 AM [facility]
== END ==
PROVIDERS: PCP Internal Medicine; Visit Provider Physician Assistant
DX: I71.4 Abdominal aortic aneurysm, without rupture (principal)
CPT/HCPCS: 76770

== ENCOUNTER → 2021-04-07 09:01 | Outpatient (CLI) | payer MEDICARE, BC, SELFPAY ==
--- NOTE | 2021-04-07 09:05 | CT_ITS ---
FINAL REPORT CLINICAL HISTORY: AAA W/O RUPTURE FINDINGS: CTA ABDOMEN Thin section axial imaging was performed through the abdomen using an a angiogram protocol. Coronal and sagittal reformatted images were submitted. This study was performed with techniques to keep radiation doses as low as reasonably achievable (ALARA). Individualized dose reduction techniques using automated exposure control or adjustment of mA and/or kV according to the patient's size were employed. There is mild scarring in the lung bases. There is thickening of the distal thoracic esophagus that is nonspecific and favored to be inflammatory. The gallbladder is present. There is bilateral renal scarring, left greater than right. There are small bilateral renal cysts. There is descending and sigmoid colon diverticulosis. CTA: There is an infrarenal abdominal aortic aneurysm measuring up to 4.7 cm in diameter. The aneurysm arises 2.2 cm below the renal arteries and extends to approximately 1.4 cm above the aortic bifurcation. There is no significant mural thrombus. There is moderate calcified plaque in the common iliac arteries without evidence of aneurysm or significant stenosis. The external and internal iliac arteries are patent. 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 The proximal SMA is patent. The origin of the ISIDORO is occluded with collateral filling to near the origin. The renal arteries are patent. CTA PELVIS Thin-section axial CT images were performed through the pelvis using an angiogram protocol. Coronal and sagittal reformatted images were submitted. This study was performed with techniques to keep radiation doses as low as reasonably achievable (ALARA). Individualized dose reduction techniques using automated exposure control or adjustment of mA and/or kV according to the patient's size were employed. The appendix is normal. There is marked enlargement of the prostate up to 8.1 cm in transverse dimensions. There is urinary bladder wall thickening which is likely inflammatory. There is a right inguinal hernia containing fat. IMPRESSION: Infrarenal abdominal aortic aneurysm up to 4.7 cm in diameter without significant mural thrombus. 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 Moderate calcified plaque in the common iliac arteries without aneurysm or significant stenosis. Marked enlargement of the prostate. Thickening of the distal esophagus is nonspecific and favored to be inflammatory. If indicated, upper endoscopy. Diverticulosis without evidence of diverticulitis. Reviewed, Interpreted and Dictated by Anjum Douglas III, MD Transcribed by Apollo Matute Authenticated by Anjum Douglas III, MD on 04/07/2021 11:54:14 AM [facility]
== END ==
PROVIDERS: PCP Internal Medicine; Visit Provider Physician Assistant Medical
DX: I71.4 Abdominal aortic aneurysm, without rupture (principal)
CPT/HCPCS: 74174; Q9967

== ENCOUNTER 2021-04-28 10:24 | Emergency (ER) | payer MEDICARE, BC, SELFPAY ==
[2021-04-28 11:24] VITALS: BP 129/77; PULSE 71; RESP 16; TEMP 37.1; O2SAT 98; BMI 28.0
--- NOTE | 2021-04-28 11:59 | HMH.EDUTC ---
[facility] [place] Clinical Impression: Viral syndrome Disposition: Home, Self-Care Condition on Discharge: Good Instructions: DI for Viral Syndrome Additional Instructions: Drink plenty of fluids. Take tylenol for pain or fever. Return if you begin to have difficulty breathing. Follow up with your regular doctor. GO TO THE ER FOR ANY WORSENING SYMPTOMS Quarantine until you know the results of your covid-19 test. If it is positive, the health department should call you and give you further instructions about your length of Quarantine and other things. Notify your school or workplace of your results and follow their instructions regarding return to work/school. Referrals: Mainor Espinoza [Primary Care Provider] - Time of Disposition: 12:07 Medical Decision Making - Medical Records Medical records reviewed: No: I reviewed the patient's medical records. - Anjel Inquiry Pt receiving controlled substance: No Vital Signs: 04/28/21 11:24 04/28/21 12:30 Temperature 98.7 F 98.7 F Temperature Source Oral Pulse Rate 71 Pulse Rate [Right Radial] 71 Respiratory Rate 16 16 Blood Pressure 129/77 Blood Pressure [Right Arm] 129/77 Blood Pressure Mean [Right Arm] 94 Blood Pressure Source [Right Arm] Automatic Cuff Blood Pressure Position [Right Arm] Sitting 02 Sat by Pulse Oximetry 98 Oxygen Delivery Method Room Air Orders (Tests/Meds): ORDERS Category Date Time Status Covid-19 Nasal PCR ([facility]) Routine Lab 04/28/21 11:38 Received [facility] [place] - General Stated complaint: covid test Time Seen by Provider: 04/28/21 11:30 Mode of Arrival: Ambulatory Source of Information: Patient Limitations: No Limitations Description of Symptoms (Recalled from Triage Doc. by RN): C/O sneezing, coughing, runny nose HEENT Symptoms (Recalled from RN notes): Yes (sneezing, runny nose) Resp Symptoms (Recalled from RN notes): Yes (coughing) Skin Symptoms (Recalled from RN notes): No MS Symptoms (Recalled from RN notes): No Functional Status (Recalled from RN notes): n/a - Related Data Home Medications Medication Instructions Recorded Confirmed albuterol sulfate 90 mcg/actuation 2 puff INHALATION Q6H PRN 07/10/17 03/16/21 aerosol inhaler fluticasone propionate 50 2 inh INHALATION BID 07/10/17 03/16/21 mcg/actuation blister powder for inhalation nitroglycerin 0.4 mg sublingual 0.4 mg SUBLINGUAL Q5M PRN 07/10/17 03/16/21 tablet diphenhydramine HCl 25 mg tablet 25 mg PO QHS PRN 07/11/17 03/16/21 ezetimibe 10 mg-simvastatin 40 mg 1 tab PO QPM 07/11/17 03/16/21 tablet loratadine 10 mg tablet 10 mg PO DAILY tab 07/11/17 03/16/21 nebivolol 10 mg tablet 5 mg PO DAILY tab 07/17/18 03/16/21 allopurinol 100 mg tablet 300 mg PO DAILY tab 10/09/19 03/16/21 famotidine 20 mg tablet 20 mg PO DAILY tab 10/09/19 03/16/21 trazodone 50 mg tablet 100 mg PO QHS PRN tab 10/09/19 03/16/21 clopidogrel 75 mg tablet 75 mg PO DAILY tab 02/27/20 03/16/21 fluticasone fur. 100 mcg-umeclid 1 inh INHALATION DAILY each 08/27/20 03/16/21 62.5 mcg-vilant 25 mcg inhalat.powder Previous Rx's Medication Instructions Recorded furosemide 20 mg tablet 10 mg PO DAILY PRN #15 tab 10/06/20 dexAMETHasone [Decadron] 6 mg PO DAILY 6 Days #6 tab 11/24/20 guaiFENesin [Mucinex 600mg tablet] 1 - 2 tab PO BIDP PRN #30 tab 11/24/20 tamsulosin 0.4 mg capsule 0.4 mg PO DAILY #90 cap 12/03/20 losartan 50 mg tablet See Rx Instructions .ROUTE 12/31/20 .COMPLEX #90 tab rivaroxaban 15 mg tablet See Rx Instructions .ROUTE 12/31/20 .COMPLEX #90 tab Allergies Allergy/AdvReac Type Severity Reaction Status Date / Time No Known Allergies Allergy Verified 03/16/21 10:39 - Worker's Comp Is this a Worker's Comp case?: No [facility] History - Hepatitis A Screen Drug use history?: No High risk sexual behaviors?: No History of sexually transmitted infection?: No Currently employed?: No Childcare worker?: No Do you h
[2021-04-28 12:30] VITALS: BP 129/77; PULSE 71; RESP 16; TEMP 37.1; O2SAT 98
== END 2021-04-28 12:30 | disposition home or self-care (01) ==
PROVIDERS: Emergency Provider Nurse Practitioner Family; PCP Internal Medicine
DX: B34.9 Viral infection, unspecified (principal)
CPT/HCPCS: G0463; 99212; C9803; U0003; U0005

== ENCOUNTER 2021-05-10 15:14 | Emergency (ER) | payer MEDICARE, BC, SELFPAY ==
[2021-05-10] VITALS (7 sets, daily range): BP systolic 120–153; BP diastolic 65–74; PULSE 67–96; RESP 16–20; TEMP 36.5–36.6; O2SAT 95–98; BMI 30.7
--- NOTE | 2021-05-10 16:00 | PC.NURSE ---
ED MD at
[2021-05-10 16:27] LABS: Basophils % 0.6 % (0.1-2.0); Eosinophils # 0.1 K/mm3 (0.0-0.4); Eosinophils % 1.1 % (0.1-12.0); Hematocrit 43.1 % (42.0-52.0); Hemoglobin 14.4 g/dL (14.1-18.0); Lymphocytes # 1.4 K/mm3 (0.7-4.5); Lymphocytes % 20.3 % (10-50); Mean Corpuscular HGB Conc 33.5 g/dL (31.8-35.4); Mean Corpuscular Hemoglobin 33.7 pg (27.0-31.2); Mean Corpuscular Volume 100.6 fl (80-94); Mean Platelet Volume 8.4 fl (7.4-10.4); Monocytes # 0.4 K/mm3 (0.1-1.0); Neutrophils % 72.9 % (37.0-80.0); Platelet Count 168 K/mm3 (142-424); Red Blood Count 4.28 M/mm3 (4.60-6.20); Red Cell Distribution Width 16.1 % (11.5-17.5); White Blood Count 6.9 K/mm3 (4.8-10.8)
--- NOTE | 2021-05-10 16:37 | HMH.EDGENADL ---
ED Disposition Clinical Impression: Epistaxis Disposition: Home, Self-Care Condition on Discharge: Good Instructions: DI for Nosebleed Additional Instructions: You can stop your Plavix at this time you can hold her Xarelto for 48 hours, and then resume taking the same dose you have been taking. Please follow-up with your primary care provider. Management of epistaxis as we have discussed, and return to the ED with worsening bleeding. Referrals: Mainor Espinoza [Primary Care Provider] - - Critical Care Critical Care Time: No Attestation: On 05/10/21, the high probability of a clinically significant, sudden or life threatening deterioration of the following system(s) required my full and direct attention, intervention and personal management. The time I documented below is in addition to time spent performing reported procedures but includes the following listed in this critical care notation. Medical Decision Making - Medical Records Medical records reviewed: Yes: I reviewed the patient's medical records. - Anjel Inquiry Pt receiving controlled substance: No Vital Signs: 05/10/21 15:15 Temperature 97.7 F Temperature Source Oral Pulse Rate [Radial] 96 H Respiratory Rate 20 Blood Pressure [Right Arm] 153/72 H Blood Pressure Mean [Right Arm] 99 Blood Pressure Position [Right Arm] Sitting 02 Sat by Pulse Oximetry 96 Oxygen Delivery Method Room Air Orders (Tests/Meds): ORDERS Category Date Time Status CBC w/Auto Diff [Complete Blood Count Auto Diff] Stat Lab 05/10/21 16:12 Received Medical Decision Narrative: Patient is a 80-year-old male presents the ED today for further evaluation of recurrent epistaxis for the last couple of days, patient well-appearing initial evaluation no acute distress, vital signs within normal limits and stable currently do not have any evidence of active bleeding on exam today, although patient takes 2 blood thinners at this time, given that his stents were 3 years ago would be reasonable to hold his Plavix or Eliquis, and I discussed this with Dr. Howard who recommended stopping the Plavix at this time, and holding his Xarelto for 2 days and then resuming. We have ordered a spot hemoglobin check for the patient as well as he is having melanotic stool which could be related to his epistaxis, but we cannot rule out the differential that he has a GI bleed, patient is very resistant to the idea of being admitted to hospital. Given this we will have patient follow-up with Dr. Espinoza his primary care provider, patient given strict return precautions on this to return to the ED with any new or worsening symptoms, and is verbalized understanding with this plan, hemoglobin within normal limits, patient given strict instructions to hold Plavix and stop his Xarelto for 2 days and then resume, and he has verbalized understanding with this. General Adult HPI - General Chief complaint: Epistaxis Stated complaint: nose bleed Time Seen by Provider: 05/10/21 15:20 Mode of Arrival: Ambulatory Limitations: No Limitations Description of Symptoms (Recalled from ER Triage Doc. by RN): TO ED PER PVT CAR WITH C/O NOSE BLEED X 2 HRS. PT STATES HE CAN FEEL IT DRAINING DOWN THROAT. PT CURRENTLY TAKING XERALTO AND PLAVIX. PT STATES HE IS ALSO HAVING BLACK TARRY STOOLS. PT DENIES ANY NAUSEA, VOMITING, DIARRHEA OR ABD PAIN. - History of Present Illness HPI narrative: Patient is a 80-year-old male presents the ED today for further evaluation of recurrent epistaxis over the last couple of days, patient has a history of coronary artery disease, status post 3 stents placed 3 years ago, states that he has been seen several times in the last couple of years for maintenance of those, has a history of atrial fibrillation as well, denies PE, denies DVT. States that he has been having nosebleeds recurrently every morning for the last couple of mornings, and states that today he had an episode of dark stool, stat
== END 2021-05-10 16:57 | disposition home or self-care (01) ==
PROVIDERS: Emergency Provider Student in an Organized Health Care Education/Training Program; PCP Internal Medicine
DX: R04.0 Epistaxis (principal); I48.0 Paroxysmal atrial fibrillation; I25.10 Atherosclerotic heart disease of native coronary artery without angina pectoris; I10 Essential (primary) hypertension; I25.2 Old myocardial infarction; E78.5 Hyperlipidemia, unspecified; Z79.899 Other long term (current) drug therapy
CPT/HCPCS: 85025; 99283

== ENCOUNTER → 2021-07-06 09:52 | Outpatient (CLI) | payer MEDICARE, BC, SELFPAY ==
[2021-07-06 10:41] LABS: Basophils # 0.1 K/mm3 (0-0.2); Basophils % 0.7 % (0.1-2.0); Eosinophils % 0.5 % (0.1-12.0); Hematocrit 46.7 % (42.0-52.0); Hemoglobin 15.2 g/dL (14.1-18.0); Lymphocytes # 1.3 K/mm3 (0.7-4.5); Lymphocytes % 19.6 % (10-50); Mean Corpuscular HGB Conc 32.5 g/dL (31.8-35.4); Mean Corpuscular Hemoglobin 33.9 pg (27.0-31.2); Mean Corpuscular Volume 104.4 fl (80-94); Mean Platelet Volume 8.2 fl (7.4-10.4); Monocytes # 0.4 K/mm3 (0.1-1.0); Neutrophils # 4.9 K/mm3 (1.8-7.8); Neutrophils % 73.2 % (37.0-80.0); Platelet Count 163 K/mm3 (142-424); Red Blood Count 4.47 M/mm3 (4.60-6.20); Red Cell Distribution Width 16.5 % (11.5-17.5); White Blood Count 6.6 K/mm3 (4.8-10.8)
[2021-07-06 11:05] LABS: Hemoglobin A1C 5.6 % (4.0-6.0)
[2021-07-06 11:29] LABS: Alanine Aminotransferase 24 U/L (12-78); Albumin Level 4.2 g/dl (3.5-5.0); Albumin/Globulin Ratio 2.3 (1.1-1.8); Alkaline Phosphatase 100 U/L (38-126); Anion Gap 10.3 mEq/L (5-15); Aspartate Amino Transferase 30 U/L (17-59); Bilirubin,Total 0.7 mg/dl (0.2-1.3); Blood Urea Nitrogen 11 mg/dl (9-20); Calcium 9.4 mg/dl (8.4-10.2); Carbon Dioxide 27 mmol/L (22.0-30.0); Chloride 108 mmol/L (98-107); Chol/HDL Ratio 3.2 (1-3.5); Cholesterol 111 mg/dl (140-200); Estimated Glomerular Filt Rate 59 ml/min (>60); GFR (African American) 71 ML/MIN (>60); Globulin 1.8 g/dL (1.3-3.2); Glucose 106 mg/dl (74-100); HDL Cholesterol 35 mg/dl (40-60); Potassium 4.3 mmoL/L (3.5-5.1); Sodium 141 mmol/L (136-145); Triglycerides 127 mg/dl (30-150); Uric Acid 2.9 mg/dl (3.5-8.5); VLDL Cholesterol 25 mg/dL (0-40)
[2021-07-06 11:40] LABS: Direct LDL Cholesterol 56.79 mg/dL (100-129)
== END ==
PROVIDERS: Visit Provider Internal Medicine
DX: E11.59 Type 2 diabetes mellitus with other circulatory complications (principal); E11.42 Type 2 diabetes mellitus with diabetic polyneuropathy; I25.10 Atherosclerotic heart disease of native coronary artery without angina pectoris; I10 Essential (primary) hypertension; E78.5 Hyperlipidemia, unspecified; M10.9 Gout, unspecified
CPT/HCPCS: 36415; 80053; 80061; 83036; 84550; 85025

== ENCOUNTER → 2021-10-19 08:26 | Outpatient (CLI) | payer MEDICARE, BC, SELFPAY ==
[2021-10-19 10:15] LABS: Prostate Specific Ag, Diagnost 5.75 ng/ml (0.0-4.0)
== END ==
PROVIDERS: PCP Internal Medicine; Visit Provider Urology
DX: N40.1 Benign prostatic hyperplasia with lower urinary tract symptoms (principal); R97.20 Elevated prostate specific antigen [PSA]
CPT/HCPCS: 36415; 84153

== ENCOUNTER → 2022-01-07 10:57 | Outpatient (CLI) | payer MEDICARE, BC, SELFPAY ==
[2022-01-07 12:05] LABS: Hemoglobin A1C 5.6 % (4.0-6.0)
[2022-01-07 12:19] LABS: Alanine Aminotransferase 26 U/L (12-78); Albumin Level 4.4 g/dl (3.5-5.0); Albumin/Globulin Ratio 2.2 (1.1-1.8); Alkaline Phosphatase 124 U/L (38-126); Anion Gap 9.1 mEq/L (5-15); Aspartate Amino Transferase 28 U/L (17-59); Blood Urea Nitrogen 13 mg/dl (9-20); Calcium 9.6 mg/dl (8.4-10.2); Carbon Dioxide 30 mmol/L (22.0-30.0); Chloride 103 mmol/L (98-107); Cholesterol 148 mg/dl (140-200); Estimated Glomerular Filt Rate 49 ml/min (>60); GFR (African American) 59 ML/MIN (>60); Glucose 102 mg/dl (74-100); HDL Cholesterol 37 mg/dl (40-60); Potassium 5.1 mmoL/L (3.5-5.1); Sodium 137 mmol/L (136-145); Total Protein,Serum 6.4 g/dl (6.3-8.2); Triglycerides 173 mg/dl (30-150); Uric Acid 4.2 mg/dl (3.5-8.5); VLDL Cholesterol 35 mg/dL (0-40)
[2022-01-07 12:36] LABS: Direct LDL Cholesterol 85.51 mg/dL (100-129)
[2022-01-07 12:37] LABS: Microalbumin/Creatinine Ratio 20.3
[2022-01-07 12:38] LABS: Creatinine,Urine Random 178 mg/dL (Not Estab.)
== END ==
PROVIDERS: PCP Internal Medicine; Visit Provider Internal Medicine
DX: I25.10 Atherosclerotic heart disease of native coronary artery without angina pectoris (principal); E78.5 Hyperlipidemia, unspecified; E11.59 Type 2 diabetes mellitus with other circulatory complications; E11.42 Type 2 diabetes mellitus with diabetic polyneuropathy; J44.9 Chronic obstructive pulmonary disease, unspecified
CPT/HCPCS: 36415; 80053; 80061; 82043; 82570; 83036; 84550

== ENCOUNTER → 2022-03-22 09:33 | Outpatient (CLI) | payer MEDICARE, BC, SELFPAY ==
--- NOTE | 2022-03-22 09:33 | CA_ITS ---
FINAL REPORT TECHNIQUE: Color Doppler, duplex Doppler and alejo scale sonography of the bilateral neck arterial vasculature was performed. Velocities were measured in the carotid arteries. Stenosis evaluation based on the validated velocity criteria. CLINICAL HISTORY: carotid bruit, ex smoker, CABG, HTN, HLD FINDINGS: The peak systolic velocity of the right common carotid artery is 71 cm/s. The peak systolic velocity of the right internal carotid artery is 91 cm/s and end diastolic velocity 27 cm/s. The ICA/CCA ratio is 1.2. A mild amount of plaque is present. The right external carotid artery is patent. The right vertebral artery is patent with antegrade flow. The peak systolic velocity of the left common carotid artery is 85 cm/s. The left internal carotid artery is not visualized. There is shadowing calcified plaque in this region which cannot be adequately evaluated. The left vertebral artery is patent with antegrade flow. IMPRESSION: Less than 50% right carotid stenosis. Left internal carotid artery not visualized. Shadowing calcified plaque in this region cannot be accurately evaluated. Recommend CTA or catheter angiogram. Bilateral patent vertebral arteries with antegrade flow. Reviewed, Interpreted and Dictated by Anjum Douglas III, MD Transcribed by Halie Vanessa Authenticated and [facility]
== END ==
PROVIDERS: PCP Nurse Practitioner Family; Visit Provider Physician Assistant
DX: R09.89 Other specified symptoms and signs involving the circulatory and respiratory systems (principal)
CPT/HCPCS: 93880

== ENCOUNTER → 2022-03-30 12:08 | Outpatient (CLI) | payer MEDICARE, BC, SELFPAY ==
[2022-03-30 13:29] LABS: Blood Urea Nitrogen 14 mg/dl (9-20); Estimated Glomerular Filt Rate 58 ml/min (>60); GFR (African American) 71 ML/MIN (>60)
== END ==
PROVIDERS: PCP Nurse Practitioner Family; Visit Provider Physician Assistant
DX: Z01.812 Encounter for preprocedural laboratory examination (principal)
CPT/HCPCS: 36415; 82565; 84520

== ENCOUNTER → 2022-03-31 09:34 | Outpatient (CLI) | payer MEDICARE, BC, SELFPAY ==
--- NOTE | 2022-03-31 10:18 | CT_ITS ---
FINAL REPORT CLINICAL HISTORY: Abnormal carotid u/s and francisca FINDINGS: CTA NECK Thin section axial CT with contrast with multiplanar reconstruction was obtained. NASCET criteria and technique was utilized during interpretation. This study was performed with techniques to keep radiation doses as low as reasonably achievable, (ALARA). Individualized dose reduction techniques using automated exposure control or adjustment of mA and/or kV according to the patient's size were employed. Aortic arch: Arch shows no significant narrowing. Great vessel origins are widely patent . Right carotid: Mild to moderate calcified plaque without significant stenosis of the right internal carotid artery. Left carotid: Dense vascular calcification at the distal left common carotid artery and origin of the internal carotid artery resulting in approximately 60% stenosis.. Vertebrals: Left vertebral artery is dominant. No significant stenosis is present . Visualized portions of the intracranial vessels are unremarkable. IMPRESSION: No significant right ICA stenosis. Approximately 60% left ICA stenosis. Reviewed, Interpreted and Dictated by Poncho Hoyt MD Transcribed by Rina Blanchard Authenticated and [facility]
== END ==
PROVIDERS: PCP Nurse Practitioner Family; Visit Provider Physician Assistant
DX: R09.89 Other specified symptoms and signs involving the circulatory and respiratory systems (principal)
CPT/HCPCS: 70498; Q9967

== ENCOUNTER 2022-06-04 10:41 | Emergency (ER) | payer MEDICARE, BC, SELFPAY ==
[2022-06-04 10:49] VITALS: PULSE 89; RESP 16; TEMP 36.7; O2SAT 97; BMI 31.6
--- NOTE | 2022-06-04 10:56 | HMH.EDGENADL ---
Discharge Plan Disposition Patient Disposition: Home, Self-Care Condition: Fair Prescriptions Prescriptions: New ondansetron 4 mg tablet,disintegrating 4 mg PO Q8H PRN (Reason: nausea) 4 Days Qty: 12 0RF No Action famotidine 20 mg tablet 20 mg PO DAILY Trelegy Ellipta 100-62.5-25 mcg blister with device 1 inh INHALATION DAILY oxybutynin chloride 5 mg tablet 5 mg PO BID Qty: 60 5RF gabapentin 300 mg capsule 300 mg PO BID fluticasone propionate 50 mcg/actuation blister with device 2 inh INHALATION BID nitroglycerin [Nitrostat] 0.4 mg tablet, sublingual 0.4 mg SUBLINGUAL Q5M PRN (Reason: Chest Pain) albuterol sulfate [ProAir HFA] 90 mcg/actuation HFA aerosol inhaler 2 puff INHALATION Q6H PRN (Reason: allergy) loratadine 10 mg tablet 10 mg PO DAILY diphenhydramine HCl [Allergy Relief(diphenhydramin)] 25 mg tablet 25 mg PO QHS PRN (Reason: Allergic Reaction) ezetimibe-simvastatin 10-40 mg tablet 1 tab PO QPM Bystolic 10 mg tablet 5 mg PO DAILY trazodone 50 mg tablet 100 mg PO QHS PRN (Reason: Sleep) allopurinol 100 mg tablet 300 mg PO DAILY furosemide 20 mg tablet See Rx Instructions .ROUTE .COMPLEX Qty: 15 5RF Dose Instruction: TAKE 1/2 TABLET BY MOUTH DAILY NEEDED FOR EDEMA Rx Instructions: TAKE 1/2 TABLET BY MOUTH DAILY NEEDED FOR EDEMA losartan 50 mg tablet See Rx Instructions .ROUTE .COMPLEX Qty: 90 3RF Dose Instruction: TAKE ONE TABLET BY MOUTH EVERY DAY FOR HIGH BLOOD PRESSURE Rx Instructions: TAKE ONE TABLET BY MOUTH EVERY DAY FOR HIGH BLOOD PRESSURE Xarelto 15 mg tablet 15 mg PO DAILY Qty: 90 3RF tamsulosin 0.4 mg capsule See Rx Instructions .ROUTE .COMPLEX Qty: 90 1RF Dose Instruction: TAKE 1 CAPSULE DAILY 30 MINUTES AFTER A MEAL THE SAME TIME EVERY DAY FOR PROSTATE Rx Instructions: TAKE 1 CAPSULE DAILY 30 MINUTES AFTER A MEAL THE SAME TIME EVERY DAY FOR PROSTATE dexamethasone 6 MG tablet 6 mg PO DAILY 6 Days Qty: 6 0RF Referrals Follow up/Referrals: Stefania Gilliland APRN [Primary Care Provider] - See instructions Activity Restrictions/Add. Instructions Additional Instructions/Restrictions: At this time was felt you are safe to be discharged from the emergency department. If new or worsening symptoms please not hesitate to return for continued evaluation. Please take your medication as prescribed. If symptoms persist longer than 7 to 10 days please follow-up with your family doctor for continued evaluation and possible stool testing. Clinical Impressions Clinical Impression: Diarrhea Instructions Patient Instructions: Diarrhea, DI for Nausea -- Adult Discharge ED Provider: Liu Brice General Adult HPI General Chief complaint: Nausea/Vomiting/Diarrhea Stated complaint: Diarrhea, chills, possible dehydration Time Seen by Provider: 06/04/22 10:56 Mode of Arrival: Wheelchair Source of Information: Patient Limitations: No Limitations Description of Symptoms (Recalled from ER Triage Doc. by RN): pt comes in via wheelchair for diarrhea and tremors. diarrhea that began yesterday and continued into this morning. no associated abd pain. History of Present Illness HPI narrative: Patient is a 81-year-old male with past medical history of hypertension, previous cardiac bypass with stenting who presents to the emergency department for evaluation of diarrhea. Onset was acute, over the last 24 hours, profuse, nonbloody, approximately 10 large-volume watery bowel movements. Patient denies abdominal pain, chest pain, vomiting, other acute complaints at this time. Related Data Home Medications Medication Instructions Recorded Confirmed albuterol sulfate 90 mcg/actuation 2 puff inhalation Q6H PRN allergy 07/10/17 03/17/22 aerosol inhaler (ProAir HFA) fluticasone propionate 50 2 inh inhalation BID allergies 07/10/17 03/17/22 mcg/actuation bli
[2022-06-04 11:19] VITALS: BP 135/65; PULSE 92; RESP 16; O2SAT 98
[2022-06-04 11:30] VITALS: BP 137/61; PULSE 91; RESP 16; O2SAT 98
[2022-06-04 11:30] LABS: Basophils % 0.3 % (0.1-2.0); Eosinophils # 0.1 K/mm3 (0.0-0.4); Hematocrit 51.6 % (42.0-52.0); Hemoglobin 17.1 g/dL (14.1-18.0); Lymphocytes # 0.8 K/mm3 (0.7-4.5); Lymphocytes % 9.3 % (10-50); Mean Corpuscular HGB Conc 33.1 g/dL (31.8-35.4); Mean Corpuscular Volume 102.9 fl (80-94); Mean Platelet Volume 8.5 fl (7.4-10.4); Monocytes # 0.4 K/mm3 (0.1-1.0); Monocytes % 5.3 % (1.7-9.3); Neutrophils % 84.1 % (37.0-80.0); Platelet Count 158 K/mm3 (142-424); Red Blood Count 5.02 M/mm3 (4.60-6.20); Red Cell Distribution Width 15.4 % (11.5-17.5); White Blood Count 8.3 K/mm3 (4.8-10.8)
[2022-06-04 11:43] LABS: Lipase 125 U/L (23-300)
[2022-06-04 11:44] LABS: Alanine Aminotransferase 38 U/L (12-78); Albumin Level 4.6 g/dl (3.5-5.0); Albumin/Globulin Ratio 1.8 (1.1-1.8); Alkaline Phosphatase 127 U/L (38-126); Anion Gap 10.8 mEq/L (5-15); Aspartate Amino Transferase 36 U/L (17-59); Bilirubin,Total 1.2 mg/dl (0.2-1.3); Blood Urea Nitrogen 18 mg/dl (9-20); Calcium 8.9 mg/dl (8.4-10.2); Carbon Dioxide 25 mmol/L (22.0-30.0); Chloride 106 mmol/L (98-107); Creatinine Clearance Estimated 56 mL/min (50-200); Estimated Glomerular Filt Rate 53 ml/min (>60); GFR (African American) 64 ML/MIN (>60); Globulin 2.6 g/dL (1.3-3.2); Glucose 149 mg/dl (74-100); Potassium 4.8 mmoL/L (3.5-5.1); Sodium 137 mmol/L (136-145); Total Protein,Serum 7.2 g/dl (6.3-8.2)
[2022-06-04 11:45] LABS: Lactic Acid 2.2 mmol/L (0.7-2.1)
[2022-06-04 12:00] VITALS: BP 133/63; PULSE 90; O2SAT 95
[2022-06-04 12:01] VITALS: BP 131/69; PULSE 70; RESP 16; TEMP 36.7
[2022-06-04 15:24] LABS: Reflex Lactic Add Lactic Reflex
== END 2022-06-04 12:08 | disposition home or self-care (01) ==
PROVIDERS: Emergency Provider Emergency Medicine; PCP Nurse Practitioner Family
DX: R19.7 Diarrhea, unspecified (principal); R11.10 Vomiting, unspecified; Z87.891 Personal history of nicotine dependence
CPT/HCPCS: 80053; 83605; 83690; 85025; 96360; 96374; 99284; 99285; J2405

== ENCOUNTER → 2022-07-26 15:13 | Outpatient (POV) | payer MEDICARE, BC, SELFPAY | PROVIDERS: Visit Provider Dermatology | DX: Z00.00 Encounter for general adult medical examination without abnormal findings (principal) ==

== ENCOUNTER 2022-09-16 23:39 | Emergency (ER) | payer MEDICARE, BC, SELFPAY ==
[2022-09-16 23:56] VITALS: BP 162/88; PULSE 92; RESP 20; TEMP 36.6; O2SAT 97; BMI 31.6
[2022-09-17] LABS: Appearance,Urine TURBID (Clear); Bilirubin,Urine 1+ (Negative); Blood, Urine 3+ (Negative); Color,Urine RED (Yellow); Glucose,Urine (UA) Negative (Negative); Ketones,Urine Negative (Negative); Leukocyte Esterase,Urine Negative (Negative); Microscopic, Urine URINE MICROSCOPIC (MICROSCOPIC); Nitrate,Urine POSITIVE (Negative); Protein,Urine 2+ (Negative)
--- NOTE | 2022-09-17 00:01 | HMH.EDGENADL ---
Discharge Plan Disposition Patient Disposition: Home, Self-Care Condition: Good Chief Complaint: Urogenital-Male Prescriptions Prescriptions: No Action famotidine 20 mg tablet 20 mg PO DAILY Trelegy Ellipta 100-62.5-25 mcg blister with device 1 inh INHALATION DAILY oxybutynin chloride 5 mg tablet 5 mg PO BID Qty: 60 5RF gabapentin 300 mg capsule 300 mg PO BID fluticasone propionate 50 mcg/actuation blister with device 2 inh INHALATION BID nitroglycerin [Nitrostat] 0.4 mg tablet, sublingual 0.4 mg SUBLINGUAL Q5M PRN (Reason: Chest Pain) albuterol sulfate [ProAir HFA] 90 mcg/actuation HFA aerosol inhaler 2 puff INHALATION Q6H PRN (Reason: allergy) loratadine 10 mg tablet 10 mg PO DAILY diphenhydramine HCl [Allergy Relief(diphenhydramin)] 25 mg tablet 25 mg PO QHS PRN (Reason: Allergic Reaction) ezetimibe-simvastatin 10-40 mg tablet 1 tab PO QPM Bystolic 10 mg tablet 5 mg PO DAILY trazodone 50 mg tablet 100 mg PO QHS PRN (Reason: Sleep) allopurinol 100 mg tablet 300 mg PO DAILY furosemide 20 mg tablet See Rx Instructions .ROUTE .COMPLEX Qty: 15 5RF Dose Instruction: TAKE 1/2 TABLET BY MOUTH DAILY NEEDED FOR EDEMA Rx Instructions: TAKE 1/2 TABLET BY MOUTH DAILY NEEDED FOR EDEMA losartan 50 mg tablet See Rx Instructions .ROUTE .COMPLEX Qty: 90 3RF Dose Instruction: TAKE ONE TABLET BY MOUTH EVERY DAY FOR HIGH BLOOD PRESSURE Rx Instructions: TAKE ONE TABLET BY MOUTH EVERY DAY FOR HIGH BLOOD PRESSURE Xarelto 15 mg tablet 15 mg PO DAILY Qty: 90 3RF tamsulosin 0.4 mg capsule See Rx Instructions .ROUTE .COMPLEX Qty: 90 1RF Dose Instruction: TAKE 1 CAPSULE DAILY 30 MINUTES AFTER A MEAL THE SAME TIME EVERY DAY FOR PROSTATE Rx Instructions: TAKE 1 CAPSULE DAILY 30 MINUTES AFTER A MEAL THE SAME TIME EVERY DAY FOR PROSTATE clopidogrel [Plavix] 75 mg tablet 75 mg PO DAILY Qty: 30 2RF dexamethasone 6 MG tablet 6 mg PO DAILY 6 Days Qty: 6 0RF ondansetron 4 mg tablet,disintegrating 4 mg PO Q8H PRN (Reason: nausea) 4 Days Qty: 12 0RF Referrals Follow up/Referrals: Stefania Pagan APRN [Primary Care Provider] - See instructions Clinical Impressions Clinical Impression: Hematuria Instructions Patient Instructions: DI for Urinary Tract Infection (UTI), DI for Urinary Tract Infection in Children Discharge ED Provider: Chivo Tan General Adult HPI General Chief complaint: Urogenital-Male Stated complaint: Blood in urine Time Seen by Provider: 09/16/22 23:46 Mode of Arrival: Ambulatory Source of Information: Patient Limitations: No Limitations Description of Symptoms (Recalled from ER Triage Doc. by RN): pt c/o blood in his urine since about 1500. pt states he urgently had to urinated and pinched his penis to hold his urine until he could make it to the bathroom. there was immediately bright red blood. pt denies pain or N/V/D. pt states he is on blood thinners. History of Present Illness HPI narrative: 82-year-old male, history of BPH, renal artery stenosis status post stents, A-fib on Eliquis presents with acute onset blood in urine. Patient reports that he felt the urge to urinate but when he went to the bathroom his was in there. He then pinched it off and went elsewhere to pee. When he began to pee he noted large volume of bright red blood in the urine. Reports that he has peed multiple times since then with significant less urine. He thinks that he injured his urethra causing him to bleed. He reports no history of bladder issues in the past. Denies any other urinary symptoms. Related Data Home Medications Medication Instructions Recorded Confirmed albuterol sulfate 90 mcg/actuation 2 puff inhalation Q6H PRN allergy 07/10/17 03/17/22 aerosol inhaler (ProAir HFA) fluticasone propionate 50 2 inh inhalation BID allergies 07/10/17
[2022-09-17 00:27] LABS: RBC,Urine TNTC #/hpf (0-3); Squamous Epithelial Cell,Urine Occasional #/hpf (0-5)
[2022-09-17 00:34] VITALS: BP 121/64; PULSE 88; RESP 18; TEMP 36.6
== END 2022-09-17 00:40 | disposition home or self-care (01) ==
PROVIDERS: Emergency Provider Emergency Medicine; PCP Nurse Practitioner Family
DX: R31.9 Hematuria, unspecified (principal); N40.1 Benign prostatic hyperplasia with lower urinary tract symptoms; I48.91 Unspecified atrial fibrillation; I70.1 Atherosclerosis of renal artery; Z79.01 Long term (current) use of anticoagulants
CPT/HCPCS: 81001; 87086; 87088; 87186; 99283

== ENCOUNTER 2022-09-26 14:32 | Observation (INO) | payer MEDICARE, BC, SELFPAY ==
[2022-09-26] VITALS (8 sets, daily range): BP systolic 133–174; BP diastolic 74–106; PULSE 90–120; RESP 20–22; TEMP 36.7–38.3; O2SAT 96–99; BMI 28.1; BMI 33.3
--- NOTE | 2022-09-26 15:01 | CT_ITS ---
FINAL REPORT TECHNIQUE: Axial CT images of the abdomen and pelvis were obtained with IV contrast. Sagittal, coronal and 3D reformatted images were obtained and reviewed this study was performed with techniques to keep radiation doses as low as reasonably achievable (ALARA). Individualized dose reduction techniques using automated exposure control or adjustment of mA and/or kV according to the patient''s size were employed. CLINICAL HISTORY: AAA, hematuria, AMS FINDINGS: An infrarenal abdominal aortic aneurysm is present measuring up to 4.4 cm in diameter. The aneurysm arises 2 cm below the level of the renal arteries. There are is a chronic dissection involving the superior aspect of the aneurysm. The aneurysm extends inferiorly to the level of the aortic bifurcation. A moderate stenosis is seen at the origin of the celiac axis measuring approximately 50% diameter narrowing. The superior mesenteric artery is patent. The right renal artery has an unremarkable appearance. 2 left renal arteries are present. A left renal artery stent is visualized in the larger of the branches, which appears patent. The proximal inferior mesenteric artery is occluded. Heavily calcified plaque is seen in the bilateral common iliac arteries. Mild stenoses are noted of the bilateral common iliac arteries. The external iliac arteries are patent. The internal iliac arteries are patent. Review of the remainder of the abdomen and pelvis reveals mild bibasilar atelectasis or scarring. A small calcification is seen along the gallbladder wall. There is severe atrophy of the posterior left kidney. Several small renal cysts are present. There is no evidence of hydronephrosis. The appendix is unremarkable. Multiple diverticula are seen in the descending and sigmoid colon. The prostate is significantly enlarged, and measures 8.4 cm transverse. There is wall thickening of the urinary bladder which is likely inflammatory. There are bilateral inguinal hernias right larger than the left containing fat. The right inguinal hernia contains a small portion of bowel. IMPRESSION: 4.4 cm infrarenal abdominal aortic aneurysm with a chronic dissection at its superior aspect. 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 Patent left renal artery stent. Marked enlargement of the prostate. Wall thickening of the urinary bladder, likely inflammatory Authenticated and ERN
--- NOTE | 2022-09-26 15:01 | HMH.EDGENADL ---
Discharge Plan Disposition Patient Disposition: Admitted Clinical Impressions Clinical Impression: Disorientation Hematuria Qualifiers: Hematuria type: gross Qualified Code(s): R31.0 - Gross hematuria Discharge ED Provider: rEnie Trinidad General Adult HPI <Keith Davila MD - Last Filed: 09/26/22 15:11> General Chief complaint: Urogenital-Male Stated complaint: confusion, discolored urine Time Seen by Provider: 09/26/22 14:38 Mode of Arrival: Ambulatory Source of Information: Patient Limitations: Altered Mental Status Description of Symptoms (Recalled from ER Triage Doc. by RN): c/o blood in urine after squeezing his penis to stop the flow of urine. D/V with no blood noted for a few days with confusion. Was seen the other day for blood in his urine. History of Present Illness HPI narrative: This is an 82-year-old male with history of hypertension, hyperlipidemia, A-fib on Xarelto, CKD, AAA, CHF, BPH, new recent diagnosis of melanoma of the scalp presenting with confusion. Patient was seen in the emergency department couple days prior to arrival. Was diagnosed with diarrhea, dehydration, discharged home with supportive care. Since that time, has began progressively altered. Confused, disoriented, but largely acting like himself. Family states the patient has been walking off balance, but has had no objective weakness. Patient states that he has had nonbloody, nonbilious vomiting, as well as watery diarrhea without blood in his stool. Gross hematuria with dark red to light pink, unable to determine whether or not it is the beginning of end of stream. It is painless without burning. No flank pain, trauma, lightheadedness, chest pain, diaphoresis, shortness of breath, or any other concerns. Patient denies any recent travel, medication changes, and has been compliant with medications Related Data Home Medications Medication Instructions Recorded Confirmed albuterol sulfate 90 mcg/actuation 2 puff inhalation Q6H PRN allergy 07/10/17 09/19/22 aerosol inhaler (ProAir HFA) nitroglycerin 0.4 mg sublingual 0.4 mg sublingual Q5M PRN Chest 07/10/17 09/19/22 tablet (Nitrostat) Pain diphenhydramine HCl 25 mg tablet 25 mg PO QHS PRN Allergic Reaction 07/11/17 09/19/22 (Allergy Relief (diphenhydramine)) ezetimibe 10 mg-simvastatin 40 mg 1 tab PO QPM Cholesterol 07/11/17 09/19/22 tablet loratadine 10 mg tablet 10 mg PO DAILY allergies 07/11/17 09/19/22 nebivolol 10 mg tablet (Bystolic) 5 mg PO DAILY High blood pressure 07/17/18 09/19/22 famotidine 20 mg tablet 20 mg PO DAILY GERD 10/09/19 09/19/22 trazodone 50 mg tablet 100 mg PO QHS PRN Sleep 10/09/19 09/19/22 fluticasone fur. 100 mcg-umeclid 1 inh inhalation DAILY 08/27/20 09/19/22 62.5 mcg-vilant 25 mcg inhalat.powder (Trelegy Ellipta) gabapentin 300 mg capsule 300 mg PO BID 03/17/22 09/19/22 allopurinol 100 mg tablet 200 mg PO DAILY gout 09/19/22 09/19/22 Previous Rx's Medication Instructions Recorded dexamethasone 6 mg tablet 6 mg PO DAILY 6 days #6 tabs 11/24/20 oxybutynin chloride 5 mg tablet 5 mg PO BID #60 tabs 06/22/21 furosemide 20 mg tablet See Rx Instructions .Route 07/15/21 .COMPLEX #15 tabs losartan 50 mg tablet See Rx Instructions .Route 12/29/21 .COMPLEX #90 tabs rivaroxaban 15 mg tablet (Xarelto) 15 mg PO DAILY #90 tabs 12/29/21 tamsulosin 0.4 mg capsule See Rx Instructions .Route 06/02/22 .COMPLEX #90 caps clopidogrel 75 mg tablet (Plavix) 75 mg PO DAILY #30 tabs 09/01/22 Allergies Allergy/AdvReac Type Severity Reaction Status Date / Time No Known Allergies Allergy Verified 09/19/22 09:52 [facility] <Keith Davila MD - Last Filed: 09/26/22 15:11> PFS Disclaimer: The information contained in this section may have been updated after the patient was seen, as this information can be updated by other users. Medical History (Updated 09/26/22 @ 15:11 by Keith Davila MD) Abdominal aortic aneurysm Atrial fibrillation BPH (benign
--- NOTE | 2022-09-26 15:02 | XR_ITS ---
FINAL REPORT CLINICAL HISTORY: confusion, cough FINDINGS: SINGLE-VIEW CHEST There is cardiomegaly. The patient is status post median sternotomy. There is left lung base atelectasis or pneumonia. There is no pneumothorax. IMPRESSION: Left lung base atelectasis or pneumonia. Reviewed, Interpreted and Dictated by Anjum Douglas III, MD Transcribed by Lyumdila Davila Authenticated and [facility]
[2022-09-26 15:09] LABS: Microscopic, Urine URINE MICROSCOPIC (MICROSCOPIC)
[2022-09-26 15:14] LABS: Appearance,Urine CLEAR (Clear); Blood, Urine 3+ (Negative); Color,Urine DK YELLOW (Yellow); Glucose,Urine (UA) TRACE (Negative); Ketones,Urine 1+ (Negative); Leukocyte Esterase,Urine TRACE (Negative); Nitrate,Urine Negative (Negative); Protein,Urine 3+ (Negative); Specific Gravity, Urine >= 1.030 (1.005-1.030)
[2022-09-26 15:22] LABS: Basophils % 0.1 % (0.1-2.0); Eosinophils # 0.1 K/mm3 (0.0-0.4); Eosinophils % 0.7 % (0.1-12.0); Hematocrit 49.3 % (42.0-52.0); Hemoglobin 15.6 g/dL (14.1-18.0); Lymphocytes # 0.8 K/mm3 (0.7-4.5); Lymphocytes % 7.2 % (10-50); Mean Corpuscular HGB Conc 31.8 g/dL (31.8-35.4); Mean Corpuscular Volume 100.9 fl (80-94); Mean Platelet Volume 8.7 fl (7.4-10.4); Monocytes # 0.6 K/mm3 (0.1-1.0); Neutrophils # 10.1 K/mm3 (1.8-7.8); Neutrophils % 86.9 % (37.0-80.0); Platelet Count 139 K/mm3 (142-424); Red Blood Count 4.88 M/mm3 (4.60-6.20); White Blood Count 11.6 K/mm3 (4.8-10.8)
--- NOTE | 2022-09-26 15:22 | CT_ITS ---
FINAL REPORT CLINICAL HISTORY: confusion FINDINGS: Axial images of the head were obtained without contrast. Coronal reformatted images were also obtained. This study was performed with techniques to keep radiation doses as low as reasonably achievable (ALARA). Individualized dose reduction techniques using automated exposure control or adjustment of mA and/or kV according to the patient''s size were employed. There is generalized age-appropriate atrophy. Periventricular low-attenuation areas are seen consistent with mild chronic ischemic changes. There is no evidence of intracranial hemorrhage or mass. There is no evidence of acute infarct. There is no evidence of shift of the midline structures. No skull abnormality is seen on the bone window images. Postoperative changes are noted of the right globe. IMPRESSION: Atrophy and mild periventricular chronic ischemic changes. No acute intracranial abnormality identified. Authenticated and ERN
[2022-09-26 15:23] LABS: MANUAL DIFFERENTIAL MANUAL DIFFERENTIAL (MANUAL DIFF)
[2022-09-26 15:25] LABS: Bilirubin,Urine 1+ (Negative)
[2022-09-26 15:29] LABS: INR 1.04 (0.9-1.1); Prothrombin Time 11.2 seconds (10.1-12.5)
[2022-09-26 15:31] LABS: Alanine Aminotransferase 39 U/L (12-78); Albumin Level 4.3 g/dl (3.5-5.0); Albumin/Globulin Ratio 1.4 (1.1-1.8); Alkaline Phosphatase 89 U/L (38-126); Anion Gap 14.5 mEq/L (5-15); Aspartate Amino Transferase 29 U/L (17-59); Bilirubin,Total 2.4 mg/dl (0.2-1.3); Blood Urea Nitrogen 22 mg/dl (9-20); Calcium 9.2 mg/dl (8.4-10.2); Carbon Dioxide 24 mmol/L (22.0-30.0); Chloride 103 mmol/L (98-107); Creatine Kinase 149 U/L (55-170); Creatinine Clearance Estimated 47 mL/min (50-200); Estimated Glomerular Filt Rate 45 ml/min (>60); GFR (African American) 54 ML/MIN (>60); Globulin 3.1 g/dL (1.3-3.2); Glucose 126 mg/dl (74-100); Lipase 27 U/L (23-300); Potassium 4.5 mmoL/L (3.5-5.1); Sodium 137 mmol/L (136-145); Total Protein,Serum 7.4 g/dl (6.3-8.2)
--- NOTE | 2022-09-26 15:32 | PC.NURSE ---
respiratory called for vbg
[2022-09-26 15:34] LABS: Activated Partial Thrombo Time 29.9 seconds (22.8-30.6)
[2022-09-26 15:36] LABS: Bacteria,Urine 1+ /lpf
[2022-09-26 15:41] LABS: VBG Base Excess -2.1 mmol/L (-2.4-2.3); VBG HCO3 22.9 mmol/L (23-30); VBG Oxygen Saturation 63.5 % (50-70); VBG PCO2 39.5 mmol/L (35-51); VBG PH 7.38 mmol/L (7.31-7.41); VBG Total CO2 24.2 mmol/L (23-27)
[2022-09-26 15:44] LABS: Lymphocytes % 11 % (10-50); Monocytes % 2 % (2-9); Neutrophils % 87 % (42-76); Nucleated Red Blood Cells 1; Total Cells Counted 100
[2022-09-26 15:45] LABS: Macrocytosis 1+; Platelet Estimate Slight Decrease
[2022-09-26 15:50] LABS: Troponin I < 0.01 ng/ml (0.00-0.034)
[2022-09-26 15:58] LABS: Ammonia 11 umol/L (9-30)
--- NOTE | 2022-09-26 16:43 | PC.NURSE ---
Dr Trinidad speaking with Dr Gill
--- NOTE | 2022-09-26 17:11 | PC.NURSE ---
report called to Brittanie MICHAEL
--- NOTE | 2022-09-26 17:35 | PC.NURSE ---
came by w/c from ED
[2022-09-26 18:56] LABS: Troponin I 0.02 ng/ml (0.00-0.034)
--- NOTE | 2022-09-26 20:14 | PC.NURSE ---
BA turned on r/t unsteady gait while ambulating to and from the bathroom. pt educated to use his call light for assistance. non-skid footwear on. bed locked and in lowest position. cb within reach.
[2022-09-26 21:24] LABS: Troponin I 0.02 ng/ml (0.00-0.034)
--- NOTE | 2022-09-26 22:00 | PC.NURSE ---
temp of 100.9 tx per mar
[2022-09-27] VITALS (8 sets, daily range): BP systolic 132–148; BP diastolic 57–89; PULSE 80–110; RESP 16–20; TEMP 36.5–38.4; O2SAT 95–99; BMI 32.5
[2022-09-27 07:54] LABS: Basophils % 0.1 % (0.1-2.0); Eosinophils # 0.1 K/mm3 (0.0-0.4); Eosinophils % 0.5 % (0.1-12.0); Hematocrit 49.9 % (42.0-52.0); Hemoglobin 15.7 g/dL (14.1-18.0); Lymphocytes # 0.7 K/mm3 (0.7-4.5); Lymphocytes % 6.8 % (10-50); Mean Corpuscular HGB Conc 31.5 g/dL (31.8-35.4); Mean Corpuscular Hemoglobin 31.8 pg (27.0-31.2); Mean Corpuscular Volume 101.2 fl (80-94); Mean Platelet Volume 9.5 fl (7.4-10.4); Monocytes # 0.5 K/mm3 (0.1-1.0); Monocytes % 4.8 % (1.7-9.3); Neutrophils % 87.8 % (37.0-80.0); Platelet Count 114 K/mm3 (142-424); Red Blood Count 4.94 M/mm3 (4.60-6.20); Red Cell Distribution Width 15.1 % (11.5-17.5); White Blood Count 10.2 K/mm3 (4.8-10.8)
[2022-09-27 07:55] LABS: MANUAL DIFFERENTIAL MANUAL DIFFERENTIAL (MANUAL DIFF)
--- NOTE | 2022-09-27 08:01 | EXP.HP ---
History of Present Illness *Admission Date: 09/26/22 *Reason for visit:: Cough and congestion/poor p.o. intake *History of present illness: 82-year-old male who lives at home with his who suffers from musculoskeletal/neurologic disability, who was brought to the ER by family members because of cough, slight confusion superimposed on his regular dementia and poor p.o. intake. In the ER he was found have a mild DOMITILA, and found to have mild leukocytosis and infiltrate on chest x-ray. Admitted to hospital for IV antibiotics. [facility] Disclaimer: The information contained in this section may have been updated after the patient was seen, as this information can be updated by other users. Medical History (Updated 09/27/22 @ 08:03 by Jasbir Gill MD) Abdominal aortic aneurysm Atrial fibrillation BPH (benign prostatic hyperplasia) BPH without obstruction/lower urinary tract symptoms CAD (coronary artery disease) CHF (congestive heart failure) CKD (chronic kidney disease) Dyspnea HFrEF (heart failure with reduced ejection fraction) HLD (hyperlipidemia) HTN (hypertension) Left carotid bruit CALBE (renal artery stenosis) Stenosis of carotid artery Family History (Updated 09/26/22 @ 17:50 by Lizzy Howe, RN) No significant family history Social History (Updated 09/26/22 @ 17:51 by Lizzy Howe, RN) Smoking Status: Former smoker second hand exposure: No alcohol intake: current substance use type: denies use current occupational status: retired Travel in the last 8 weeks: Inside the [place] household members: spouse housing: house caffeine: Yes Meds Home Medications and Allergies Home Medications Medication Instructions Recorded Confirmed Type albuterol sulfate 90 mcg/actuation 2 puff inhalation Q6H PRN allergy 07/10/17 09/26/22 History aerosol inhaler (ProAir HFA) nitroglycerin 0.4 mg sublingual 0.4 mg sublingual Q5M PRN Chest 07/10/17 09/19/22 History tablet (Nitrostat) Pain diphenhydramine HCl 25 mg tablet 25 mg PO HS sleep 07/11/17 09/19/22 History (Allergy Relief (diphenhydramine)) ezetimibe 10 mg-simvastatin 40 mg 1 tab PO HS Cholesterol 07/11/17 09/27/22 History tablet nebivolol 10 mg tablet (Bystolic) 5 mg PO DAILY High blood pressure 05/28/19 07/31/23 History famotidine 20 mg tablet 20 mg PO DAILY Acid Reflux 10/09/19 09/19/22 History fluticasone fur. 100 mcg-umeclid 1 inh inhalation DAILY soa 08/27/20 09/19/22 History 62.5 mcg-vilant 25 mcg inhalat.powder (Trelegy Ellipta) allopurinol 100 mg tablet 200 mg PO DAILY gout 09/19/22 09/26/22 History clopidogrel 75 mg tablet (Plavix) 75 mg PO DAILY platelet inhibitor 09/26/22 09/26/22 History furosemide 20 mg tablet 10 mg PO DAILY PRN Edema 09/26/22 History losartan 50 mg tablet 50 mg PO DAILY High Blood Pressure 09/26/22 09/26/22 History oxybutynin chloride 5 mg tablet 5 mg PO BID bladder 09/26/22 History rivaroxaban 15 mg tablet (Xarelto) 15 mg PO DAILY Blood Thinner 09/26/22 09/26/22 History tamsulosin 0.4 mg capsule 0.4 mg PO HS prostrate 09/26/22 09/26/22 History gabapentin 600 mg tablet 600 mg PO TID nerve pain 09/27/22 09/27/22 History lansoprazole 30 mg capsule,delayed 30 mg PO DAILY Acid Reflux 09/27/22 09/27/22 History release levocetirizine 5 mg tablet 5 mg PO DAILY Allergy Symptoms 09/27/22 09/27/22 History nebivolol 5 mg tablet 5 mg PO DAILY High Blood Pressure 09/27/22 09/27/22 History trazodone 100 mg tablet 100 mg PO HSP PRN Sleep 09/27/22 09/27/22 History New Prescriptions to Start Prescriptions: Allergies Allergy/AdvReac Type Severity Reaction Status Date / Time No Known Allergies Allergy Verified 09/26/22 17:42 Exam Data for Last 24 hours Vital signs and Labs for Last 24 Hours: Temp Pulse Resp BP Pulse Ox O2 Del Method 98.7 F 82 19 148/58 H 99 Room Air 09/27/22 04:00 09/27/22 04:00 09/27/22 04:00 09/27/22 04:00 09/27/22 04:00 09/27/22 06:15 Laboratory
[2022-09-27 08:13] LABS: Lymphocytes % 4 % (10-50); Monocytes % 5 % (2-9); Neutrophils % 81 % (42-76); Total Cells Counted 100
[2022-09-27 08:14] LABS: Macrocytosis 1+; Platelet Estimate Moderate Decrease; Polychromasia 1+
[2022-09-27 08:46] LABS: Anion Gap 15.9 mEq/L (5-15); Blood Urea Nitrogen 19 mg/dl (9-20); Calcium 8.8 mg/dl (8.4-10.2); Carbon Dioxide 22 mmol/L (22.0-30.0); Chloride 105 mmol/L (98-107); Creatinine Clearance Estimated 61 mL/min (50-200); Estimated Glomerular Filt Rate 58 ml/min (>60); GFR (African American) 70 ML/MIN (>60); Glucose 111 mg/dl (74-100); Potassium 3.9 mmoL/L (3.5-5.1); Sodium 139 mmol/L (136-145)
--- NOTE | 2022-09-27 10:11 | HMH.OTEV ---
OT Inpatient Evaluation Rehab OT IP Evaluation Start: 09/27/22 08:00 Freq: ONCE Status: Active Protocol: Document 09/27/22 10:08 NELSON (Rec: 09/27/22 10:11 [id number] Rehab OT IP Assessment Subjective History Pt oriented x 3 on arrival. Pt agreeable to engage in therapy evaluation. Pt is an 82-year-old male who lives at home with his who suffers from musculoskeletal/ neurologic disability, who was brought to the hospital by family members because of cough, slight confusion superimposed on his regular dementia and poor p.o. intake; pt admitted on 09/26/22. Prior to being in the hosptial, pt claims he was independent with all ADLs and IADLs. Pt did not use any type of AE; pt still drives. Pt also assists in caring for his . Subjective I feel better today, I am ready to go home. Objective Patient Orientation Person,Place,Birthday Upper Extremity Gross ROM WFL Bed Mobility bed mobility-scooting,bed mobility - supine/sit,bed mobility - rolling Assist Level Supervision/Stand by Transfer Training Sit/Stand Transfer Assist Level Supervision/Stand by Chair Transfer Ability Supervision/Stand by Chair Transfer Technique Sit to/from Ambulatory Chair Transfer Assistive Devices None Lower Body Dressing Ability Standby Assistance Overall Commode/Toilet Transfer Ability Standby Assistance Commode/Toilet Transfer Technique Sit to/from Ambulatory Rehab OT IP prob,goals,plan Problems Date of Evaluation: 09/27/22 Rehab Potential Rehab Potential Innapropriate for Skilled Therapy Discharge Plan OT Discharge Plan At this time, pt appears to be at his baseline with functioal transfers and ADL independence. Pt can return home with once medically stable per physician. Eval Complexity Eval Charge Codes 57678 - Low Complexity G Codes G -code Required No
--- NOTE | 2022-09-27 10:18 | HMH.PTEV ---
Physical Therapy Evaluation Rehab PT IP Evaluation Start: 09/27/22 08:00 Freq: ONCE Status: Active Protocol: Document 09/27/22 10:14 LARISSA (Rec: 09/27/22 10:18 LARISSA [id number]) Subjective/History History History 82 yowm adm to [facility] with PNA. He has hx of AAA, a-fib, CAD, CHF, CKD, HTN, HLD. He reports he lives with his spouse, no steps to enter the home, and he is generally independent with all mobility without AD. He also takes care of his sposue who is in poor health. Subjective Subjective Pt reports no c/o this am. Rehab PT IP Eval Objective Appearance Patient Behavior Appropriate Patient Orientation Person,Place,Time Difficulty following instructions none Speech Pattern Clear Ambulation Patient Able to Ambulate Yes Balance Ability to Arise Able, uses arms to help Sitting Balance Steady, safe Standing Balance Steady, wide stance Dynamic Sitting Balance Ability Good Dynamic Standing Balance Ability Good Transfers Bed Transfer Ability Supervision/Stand by Chair Transfer Ability Supervision/Stand by Sit to Stand Bed Transfer Ability Supervision/Stand by Sit to Stand Chair Transfer Ability Supervision/Stand by ROM All Extremities PT ROM Status WFL MMT All Extremities PT MMT WFL Rehab PT IP prob,goals,plan Problems Date of Evaluation: 09/27/22 Discharge Plan PT Discharge Plan Pt is currently appropriate to return home once medically stable for d/c. G -code Required No Eval Complexity Eval Charge Codes 85451 - High Complexity PHYSICIAN CERTIFICATION: I certify the specified therapy services for Ti Rodríguez are required, authorized, and reviewed every 30 days.
--- NOTE | 2022-09-27 10:24 | P.CONPHA_ITS ---
Pharmacy Intervention Comments: MEDICATION RECONCILIATION COMPLETED ON PATIENT USING EXTERNAL FILL HISTORY FROM PHARMACY AND LIST FROM [facility]. -SUJIT CLARKE, DANAD
--- NOTE | 2022-09-27 10:24 | HMH.PHAINT1 ---
Pharmacy Intervention Comments: MEDICATION RECONCILIATION COMPLETED ON PATIENT USING EXTERNAL FILL HISTORY FROM PHARMACY AND LIST FROM [facility]. -SUJIT CLARKE, DANAD
--- NOTE | 2022-09-27 12:23 | SW/DCPLANNER ---
PT/OT evaluated this patient and stated that he is safe to return home. I spoke with patient and his family regarding discharge plans: the plan is for patient to return home with family. Patient will discharge home today.
--- NOTE | 2022-09-27 13:44 | PC.NURSE ---
Pt. temp of 101.1 and Tylenol 650 mg given.
--- NOTE | 2022-09-27 14:10 | PC.NURSE ---
Pt's temp now 98.9 after tylenol.
[2022-09-28] VITALS: BP 124/55; PULSE 100; PULSE 85; RESP 18; TEMP 36.6; O2SAT 96
[2022-09-28 04:00] VITALS: BP 123/71; PULSE 74; RESP 18; TEMP 36.9; O2SAT 99; BMI 31.4
--- NOTE | 2022-09-28 05:43 | PC.NURSE ---
pt has had episodes of diaphoresis t/o the shift. no confusion present, weakness/unsteady gait upon ambulation. pt ambulates to the toilet for voiding/bm with a x1 assist/standby. BA on for safety. pt follows commands. n acute changes. POC ongoing. cb within reach, bed locked/lowest position.
[2022-09-28 08:00] VITALS: BP 147/110; PULSE 97; RESP 17; TEMP 36.9; O2SAT 100
--- NOTE | 2022-09-28 08:16 | EXP.DC.SUM ---
General Admission date:: 09/26/22 Discharge date: 09/28/22 HPI HPI HPI: 82-year-old male who lives at home with his who suffers from musculoskeletal/neurologic disability, who was brought to the ER by family members because of cough, slight confusion superimposed on his regular dementia and poor p.o. intake. In the ER he was found have a mild DOMITILA, and found to have mild leukocytosis and infiltrate on chest x-ray. Admitted to hospital for IV antibiotics. Hospital Course Hospital Course Hospital Course: Patient was admitted, placed on community-acquired pneumonia protocol antibiotics. Did not have much of a cough. The following day spiked a fever over 102 and he was held over to follow cultures and clinical situation. He did very well following this. Urine culture grew out E. coli, greater than 100,000 colonies, pansensitive. This morning he was doing well, eating well, doing all of his self-care activities. He will be discharged home today. I will see him in the office on Monday to follow-up urine and will probably do a prostate exam when he is on antibiotics to see if there is any indication for ongoing treatment for this area. Exam Data for Last 24 hours Vital signs and Labs for Last 24 Hours: Temp Pulse Resp BP Pulse Ox O2 Del Method 98.5 F 97 H 17 147/110 H 100 Room Air 09/28/22 08:00 09/28/22 08:00 09/28/22 08:00 09/28/22 08:00 09/28/22 08:00 09/28/22 08:00 Laboratory Results - last 24 hr 09/27/22 07:30: Sodium 139, Potassium 3.9, Chloride 105, Carbon Dioxide 22, Anion Gap 15.9 H, BUN 19, Creatinine 1.20, Estimated Creat Clear 61, Estimated GFR 58 L, Est GFR ( Amer) 70 D, Glucose 111 H, Calcium 8.8 I & O for Last 24 hours: Intake & Output 09/25/22 09/26/22 09/27/22 09/28/22 11:59 11:59 11:59 11:59 Intake Total 1090 / 1090 820 / 820 Output Total 450 / 450 100 / 100 Balance 640 / 640 720 / 720 Weight 195 lb 188 lb 6.4 oz Microbiology Reports for the Last 24 Hours: Microbiology 09/26/22 14:48 Urine,Clean Catch Urine Culture - Final Escherichia coli Constitutional Constitutional: no acute distress *Routine HEENT Exam Head: Present normocephalic Eye: Present EOMI and PERRL ENT: Present mucous membranes moist *Routine Neck Exam Neck: Present supple; Absent lymphadenopathy *Routine Respiratory Exam Respiratory: Present CTA bilaterally *Routine Cardiovascular Exam Cardiovascular: Present RRR *Routine Abdominal Exam Abdominal: Present soft and normoactive bowel sounds; Absent tenderness *Routine Extremities Exam Extremities: Absent cyanosis, clubbing or edema *Routine Skin Exam Skin: Present warm; Absent rash *Routine Neurological Exam Neurological: Present alert and oriented X3 Results Data Completed and Pending Labs on day of discharge: Labs from last 24 hours 09/27/22 07:30 Sodium 139 Potassium 3.9 Chloride 105 Carbon Dioxide 22 Anion Gap 15.9 H BUN 19 Creatinine 1.20 Estimated Creat Clear 61 Estimated GFR 58 L Est GFR ( Amer) 70 D Glucose 111 H Calcium 8.8 DS: Diagnosis Discharge Diagnosis (1) Community acquired pneumonia: Status: Acute Code(s): J18.9 - Pneumonia, unspecified organism (2) DOMITILA (acute kidney injury): Status: Acute Code(s): N17.9 - Acute kidney failure, unspecified (3) CKD (chronic kidney disease): Status: Chronic Code(s): N18.9 - Chronic kidney disease, unspecified Qualifiers: Chronic kidney disease stage: stage 3 (moderate) Qualified Code(s): N18.3 - Chronic kidney disease, stage 3 (moderate) (4) Abdominal aortic aneurysm: Status: Chronic Code(s): I71.4 - Abdominal aortic aneurysm, without rupture Qualifiers: Presence of rupture: without rupture Qualified Code(s): I71.4 - Abdominal aortic aneurysm, without rupture (5) CAD (coronary artery disease): Status: Chronic
--- NOTE | 2022-09-30 13:01 | CARE MANAGER ---
Contacted patient related to hospital discharge. States he picked up medication and is aware of of follow up appointment. Denies questions or concerns. FERNANDA Moreno
== END 2022-09-28 10:05 | disposition home or self-care (01) ==
LOC: ER 15:31 → 2ND 17:01
PROVIDERS: Emergency Medicine; Admitting Provider Internal Medicine Adolescent Medicine; Emergency Provider Emergency Medicine; PCP Nurse Practitioner Family; Visit Provider Internal Medicine Adolescent Medicine
DX: J18.9 Pneumonia, unspecified organism (principal); N17.9 Acute kidney failure, unspecified; I25.10 Atherosclerotic heart disease of native coronary artery without angina pectoris; Z79.01 Long term (current) use of anticoagulants; Z79.02 Long term (current) use of antithrombotics/antiplatelets; Z79.899 Other long term (current) drug therapy; I13.0 Hypertensive heart and chronic kidney disease with heart failure and stage 1 through stage 4 chronic kidney disease, or unspecified chronic kidney disease; I50.9 Heart failure, unspecified; I70.1 Atherosclerosis of renal artery; N18.30 Chronic kidney disease, stage 3 unspecified; I71.40 Abdominal aortic aneurysm, without rupture, unspecified
CPT/HCPCS: G0378; 36415; 70450; 71045; 74174; 80048; 80053; 81001; 82140; 82550; 82803; 83605; 83690; 84484; 85007; 85025; 85610; 85730; 86850; 87040; 87086; 87088; 87186; 94640; 97163; 97165; 99285; J0456; J0696; Q9967

== ENCOUNTER → 2022-11-08 12:59 | Outpatient (POV) | payer MEDICARE, BC, SELFPAY | PROVIDERS: Visit Provider Dermatology | DX: Z00.00 Encounter for general adult medical examination without abnormal findings (principal) ==

== ENCOUNTER 2022-11-23 11:00 | Outpatient (RCR) | payer MEDICARE, BC, SELFPAY ==
--- NOTE | 2022-10-13 13:33 | HMH.PTOPEV ---
PT Outpatient Evaluation Rehab PT Outpatient Evaluation Start: 10/13/22 13:25 Freq: Status: Active Protocol: Document 10/13/22 13:25 CRISTINA (Rec: 10/13/22 13:33 CRISTINA [id number]) E-signed By Ian Burnett, PT Outpatient Therapy Subjective History Subjective History Pt reports currrently recovering from recent (~3 weeks ago) hospital stay for kidney infection and pneumonia . Pt reports illness and hospital stay has caused significant weakness and endurance issues w/standing and walking, and reports some balance distrubances prior to hospitalization. Chief Complaint Weakness,Decreased Coordination Symptom Type Other Symptoms Relieved By Rest/Positioning Symptoms Aggravated By Standing,Physical Activity, Walking Prior Functional Limitations Balance Current Functional Limitations Housework,Standing,Walking, Stairs,Balance Hip/Knee Eval Gait Observation General Gait Pattern Observation Shuffling Step Assistive Device Assistive Devices None / NA MMT bilateral Hip Flexion Strength Grade 4- Good- Hip Abduction Strength Grade 4- Good- Hip Adduction Strength Grade 4 Good Hip Extension Strength Grade 4 Good Hip External Rotation Strength Grade 4- Good- Hip Internal Rotation Strength Grade 4- Good- Knee Extension Strength Grade 4 Good Knee Flexion Strength Grade 4 Good Ankle/Foot Eval MMT Ankle Dorsiflexion Strength Grade 5 Normal Tinetti Sitting Balance Sitting Balance Steady, safe Arising from Chair Ability to Arise Able, w/o using arms Attempts to Arise Arises on 1st attempt Standing Balance Immediate Standing Balance Steady w/o support Standing Balance Narrow stance w/o support Nudged Response Staggers, catches self Standing with Eyes Closed Unsteady Turning Step Pattern Turning 360 Degrees Continuous steps Stability Turning 360 Degrees Steady Sitting Down Sitting Down Safe, steady Gait and Step Initiation of Gait No hesitancy Right Foot Step Length Does pass stance foot Right Foot Step Height Does not clear floor Left Foot Step Length Does pass stance foot Left Foot Step Height Does not clear floor Step Description Step Symmetry Step length appears equal Step Continuity Steps appear berkley
--- NOTE | 2022-11-16 10:55 | HMH.RHREAS ---
Rehab Reassessment Rehab OP Re-assessment Start: 10/13/22 13:25 Freq: Status: Active Protocol: Document 11/16/22 10:45 CRISTINA (Rec: 11/16/22 10:54 CRISTINA [id number]) E-signed By Ian Burnett, PT Tinetti Sitting Balance Sitting Balance Steady, safe Arising from Chair Ability to Arise Able, w/o using arms Attempts to Arise Arises on 1st attempt Standing Balance Immediate Standing Balance Steady w/o support Standing Balance Steady, wide stance Nudged Response Steady Standing with Eyes Closed Unsteady Turning Step Pattern Turning 360 Degrees Continuous steps Stability Turning 360 Degrees Steady Sitting Down Sitting Down Safe, steady Gait and Step Initiation of Gait No hesitancy Right Foot Step Length Does pass stance foot Right Foot Step Height Completely clears floor Left Foot Step Length Does pass stance foot Left Foot Step Height Completely clears floor Step Description Step Symmetry Step length appears equal Step Continuity Steps appear continuous Gait Description Path Description Straight Trunk Description No sway Walking Stance Heels apart Scoring and Interpretation Tinetti Composite Score (points) 25 Interpretation of Scores Low risk for falls (>24) Rehab Re-assessment Subjective Subjective Pt reports slight improvement in balance issues since I eval , and 'maybe a little stronger too.' Pt also reports 'I was able to work in the yard for at least 45 mintues the other day.' Objective Objective Notes SEE TINETTI ABOVE MMT: B/L LE'S HIP AND KNEE MM WFL Assessment Progress Assessment Progressing as Expected Assessment Notes SIGNIFICANTLY IMPROVED TINETTI , STRENGTH, AND STANDING/ WALKING ENDURANCE Patient goals met stg's 6 ltg's 4/7 Goals Not Met ltg's 3/7 Plan Plan Pt to continue with skilled P. T. to make further improvements in overall endurance, balance and strength to allow for optimal function Frequency of Therapy 1-2x/wk Duration of therapy 3-5wks Time and Billing Re-Eval Time 12
== END 2022-11-23 11:05 | disposition home or self-care (01) ==
LOC: PT 11:00
PROVIDERS: PCP Nurse Practitioner Family; Visit Provider Internal Medicine Adolescent Medicine
DX: R27.0 Ataxia, unspecified (principal); M62.81 Muscle weakness (generalized)
CPT/HCPCS: 97110; 97112; 97163; 97164; 97530

== ENCOUNTER 2023-01-29 08:39 | Emergency (ER) | payer MEDICARE, BC, SELFPAY ==
[2023-01-29 08:40] VITALS: BP 140/58; PULSE 104; RESP 19; TEMP 37.3; O2SAT 95; BMI 31.2
--- NOTE | 2023-01-29 09:26 | HMH.EDGENADL ---
Discharge Plan Disposition Patient Disposition: Xfer Short-Term Hosp Chief Complaint: Fever Prescriptions Prescriptions: No Action ezetimibe-simvastatin 10-40 mg tablet 1 tab PO HS allopurinol 100 mg tablet 200 mg PO DAILY tamsulosin 0.4 mg capsule See Rx Instructions .ROUTE .COMPLEX Qty: 90 3RF Dose Instruction: TAKE 1 CAPSULE DAILY 30 MINUTES AFTER A MEAL THE SAME TIME EVERY DAY FOR PROSTATE Rx Instructions: TAKE 1 CAPSULE DAILY 30 MINUTES AFTER A MEAL THE SAME TIME EVERY DAY FOR PROSTATE losartan 50 mg tablet See Rx Instructions .ROUTE .COMPLEX Qty: 90 2RF Dose Instruction: TAKE 1 TABLET BY MOUTH ONCE DAILY FOR HIGH BLOOD PRESSURE Rx Instructions: TAKE 1 TABLET BY MOUTH ONCE DAILY FOR HIGH BLOOD PRESSURE clopidogrel [Plavix] 75 mg tablet 75 mg PO DAILY Xarelto 15 mg tablet 20 mg PO QPMWITHMEAL gabapentin 600 mg tablet 600 mg PO TID trazodone 100 mg tablet 100 mg PO HSP PRN (Reason: Sleep) lansoprazole 30 mg capsule,delayed release(DR/EC) 30 mg PO DAILY levocetirizine 5 mg tablet 5 mg PO DAILY acetaminophen 500 mg Tablet 500 mg PO Q6H PRN (Reason: Pain) levofloxacin 750 mg Tablet 750 mg PO DAILY oxycodone 5 mg Tablet 5 mg PO Q6 PRN (Reason: Pain) loratadine 10 mg Capsule 10 mg PO DAILY Xarelto 20 mg Tablet 20 mg PO DAILY metoprolol tartrate 75 mg Tablet 75 mg PO TID Trelegy Ellipta 100-62.5-25 mcg Blister With Device 1 inh INHALATION DAILY Referrals Follow up/Referrals: Stefania Pagan APRN [Primary Care Provider] - See instructions Clinical Impressions Clinical Impression: Dehiscence of operative wound, H/O fasciotomy, Swelling of lower leg Discharge ED Provider: Liu Brice General Adult HPI General Chief complaint: Fever Stated complaint: fever Time Seen by Provider: 01/29/23 08:45 Mode of Arrival: EMS Source of Information: Patient and EMS Limitations: No Limitations Description of Symptoms (Recalled from ER Triage Doc. by RN): 82 yo M presents to ED with c/o fever. pt is resident at [facility]. pt was [facility] to SNF on jan [facility] from . nurse staff report pt had temp 100.3 on assessment this am, medicated with tylenol and decreased to 99.3. pt has multiple surgical wounds on right lower extremity. RLE with pitting edema. wounds on RLE are red and swollen with foul smelling odor. History of Present Illness HPI narrative: Patient is a 82-year-old with past medical history of COPD not on oxygen, CKD, coronary artery disease status post CABG, hypertension, AAA, atrial fibrillation on Xarelto, heart failure with reduced ejection fraction, gout who presents the emergency department for evaluation of his lower extremity. Patient presented to [facility] on for planned EVAR with bilateral lower extremity revascularization. Originally patient underwent shockwave lithotripsy of the bilateral common iliac arteries, selective cannulation angiography and oral embolization of the lumbar artery, EVAR, 12 Lao sheath percutaneous closure of bilateral common femoral arteries. Patient had complicated course including exploration of the right femoral artery, iliofemoral and femoral-popliteal thrombectomies, 4 compartment fasciotomy release of the right lower extremity, repair of the right femoral arteriotomy with bovine patch angioplasty under the care of vascular surgery with Dr. Ann. Patient was deemed appropriate for discharge on and went to [place] where he was taking Augmentin and Levaquin. Over the last couple of days patient has had decreased sensation in his right foot, progressive swelling over his lateral calf fasciotomy, purulence from his groin. Patient became febrile this morning causing him to present here for continued evaluation. Patient states that he has had some worsening pain in his groin but otherwise does not have significant complaints. Relate
[2023-01-29 09:33] LABS: Basophils % 0.1 % (0.1-2.0); Eosinophils % 0.2 % (0.1-12.0); Hematocrit 29.4 % (42.0-52.0); Hemoglobin 9.5 g/dL (14.1-18.0); Lymphocytes # 0.6 K/mm3 (0.7-4.5); Lymphocytes % 5.7 % (10-50); Mean Corpuscular HGB Conc 32.3 g/dL (31.8-35.4); Mean Corpuscular Hemoglobin 31.6 pg (27.0-31.2); Mean Corpuscular Volume 97.7 fl (80-94); Mean Platelet Volume 9.6 fl (7.4-10.4); Monocytes # 0.3 K/mm3 (0.1-1.0); Monocytes % 3.4 % (1.7-9.3); Neutrophils # 8.8 K/mm3 (1.8-7.8); Neutrophils % 90.6 % (37.0-80.0); Platelet Count 344 K/mm3 (142-424); Red Cell Distribution Width 17.6 % (11.5-17.5); White Blood Count 9.7 K/mm3 (4.8-10.8)
[2023-01-29 09:34] VITALS: BP 176/82; PULSE 93; RESP 20; O2SAT 96
[2023-01-29 09:35] LABS: Chloride 108 mmol/L (98-107); Potassium 3.5 mmoL/L (3.5-5.1); Sodium 138 mmol/L (136-145)
[2023-01-29 09:37] LABS: Blood Urea Nitrogen 17 mg/dl (9-20); Creatinine Clearance Estimated 71 mL/min (50-200); Estimated Glomerular Filt Rate 72 ml/min (>60); GFR (African American) 87 ML/MIN (>60)
[2023-01-29 09:38] LABS: Alanine Aminotransferase 68 U/L (12-78); Albumin Level 2.7 g/dl (3.5-5.0); Albumin/Globulin Ratio 0.8 (1.1-1.8); Alkaline Phosphatase 134 U/L (38-126); Anion Gap 5.5 mEq/L (5-15); Aspartate Amino Transferase 120 U/L (17-59); Bilirubin,Total 2.3 mg/dl (0.2-1.3); Calcium 7.4 mg/dl (8.4-10.2); Carbon Dioxide 28 mmol/L (22.0-30.0); Creatine Kinase 1068 U/L (55-170); Globulin 3.3 g/dL (1.3-3.2); Glucose 126 mg/dl (74-100)
[2023-01-29 09:40] LABS: Lactic Acid 1.2 mmol/L (0.7-2.1); MANUAL DIFFERENTIAL MANUAL DIFFERENTIAL (MANUAL DIFF)
--- NOTE | 2023-01-29 09:40 | ECG_ITS ---
APPROVED REPORT Exam: Resting ECG HR:95 bpm ECG Measurements Heart Rate 95 AXES QRSd 100 QRS 10 QT 380 T 60 QTc 433 Conclusion ATRIAL FIBRILLATION WITH ABERRANT CONDUCTION OR VENTRICULAR PREMATURE COMPLEXES LOW QRS VOLTAGE IN PRECORDIAL LEADS [QRS DEFLECTION < 1.0 mV IN CHEST LEADS] PROBABLE INFERIOR MYOCARDIAL INFARCTION , PROBABLY OLD [35 ms Q WAVE IN II/aVF] ABNORMAL ECG UNCONFIRMED REPORT Electronically signed by : Jasbir Gill MD 01/30/2023 19:19:31
--- NOTE | 2023-01-29 09:41 | CT_ITS ---
PROCEDURE INFORMATION: Exam: CT Right Lower Extremity With Contrast; Thigh Exam date and time: 01/29/2023 10:12 AM Age: 82 years old Clinical indication: Other: Groin puss; Prior surgery; Surgery date: <1 month; Surgery type: Vascular surgery; Additional info: Recent surgery, R groin puss TECHNIQUE: Imaging protocol: CT of the right lower extremity with intravenous contrast was performed. Exam focused on the thigh. Radiation optimization: All CT scans at this facility use at least one of these dose optimization techniques: automated exposure control; mA and/or kV adjustment per patient size (includes targeted exams where dose is matched to clinical indication); or iterative reconstruction. Contrast material: ISOVUE; Contrast volume: 50 ml; Contrast route: IV; REPORTING DATA: Count of CT and Cardiac NM exams in prior 12 months: This patient has received 3 known CTs and 0 known cardiac nuclear medicine studies in the 12 months prior to the current study. COMPARISON: CT ABDOMEN PELVIS W CON 01/29/2023 9:59 AM FINDINGS: Tubes, catheters and devices: Surgical clips, gas, and induration of fat at recent catheter insertion site. No drainable collection identified. Bones/joints: Normal. No acute fracture or dislocation. Soft tissues: Diffuse soft tissue edema throughout the right lower extremity. Skin france within the medial thigh. Diffuse edema within the incompletely visualized posterior and lateral musculature of the lower leg. No abnormal fascial enhancement or thickening. If there is concern for necrotizing fasciitis, additional workup recommended. Vasculature: Atherosclerotic calcification throughout the visualized vascular structures. IMPRESSION: 1. Surgical clips, gas, and induration of fat at recent catheter insertion site. No drainable collection identified. 2. Diffuse edema within the incompletely visualized posterior and lateral musculature of the lower leg. No abnormal fascial enhancement or thickening. If there is concern for necrotizing fasciitis, additional workup recommended. Findings were discussed with LILIYA Luna on 01/29/2023 11:28 AM EST. Patient had recent thrombectomy, edema may be related to this. Additional workup necessary if indicated.
--- NOTE | 2023-01-29 09:41 | CT_ITS ---
PROCEDURE INFORMATION: Exam: CT Abdomen And Pelvis With Contrast Exam date and time: 01/29/2023 9:59 AM Age: 82 years old Clinical indication: Mass, lump, or swelling; Prior surgery; Surgery date: <1 month; Surgery type: Vascular surgery; Additional info: Recent vascular surgery, R groin purulence/swell TECHNIQUE: Imaging protocol: Computed tomography of the abdomen and pelvis with contrast. Radiation optimization: All CT scans at this facility use at least one of these dose optimization techniques: automated exposure control; mA and/or kV adjustment per patient size (includes targeted exams where dose is matched to clinical indication); or iterative reconstruction. Contrast material: ISOVUE; Contrast volume: 75 ml; Contrast route: IV; REPORTING DATA: Count of CT and Cardiac NM exams in prior 12 months: This patient has received 3 known CTs and 0 known cardiac nuclear medicine studies in the 12 months prior to the current study. COMPARISON: CT ANGIO ABDOMEN PELVIS 09/26/2022 3:51 PM FINDINGS: Tubes, catheters and devices: Interval placement of endovascular stent graft. Pleural spaces: Small pleural effusions bilaterally. Liver: Normal. No mass. Gallbladder and bile ducts: Normal. No calcified stones. No ductal dilation. Pancreas: Normal. No ductal dilation. Spleen: Normal. No splenomegaly. Adrenal glands: Normal. No mass. Kidneys and ureters: Small simple cortical renal cysts bilaterally. Cortical scarring posterior left kidney. No hydronephrosis. Stomach and bowel: Unremarkable. No obstruction. No mucosal thickening. Appendix: No evidence of appendicitis. Intraperitoneal space: Unremarkable. No free air. No significant fluid collection. Vasculature: [place] abdominal aorta stable in size measuring 4.4 x 4.7 cm. Induration of fat within the retroperitoneum, particularly at the aortic bifurcation. Complex layering fluid bilaterally, worse on the right, tracking into the right pelvis. Findings highly concerning for graft failure or aneurysm leak. Lymph nodes: Unremarkable. No enlarged lymph nodes. Urinary bladder: Unremarkable as visualized. Reproductive: Hydrocele. Prostate gland enlarged, stable. Bones/joints: Unremarkable. No acute fracture. Soft tissues: Surgical clips and induration of fat in the right groin at site of recent catheter insertion. No drainable collection identified. Anasarca. Right inguinal hernia containing fluid and fat. IMPRESSION: 1. Interval placement of endovascular stent graft. [place] abdominal aorta stable in size measuring 4.4 x 4.7 cm. Induration of fat within the retroperitoneum, particularly at the aortic bifurcation. Complex layering fluid bilaterally, worse on the right, tracking into the right pelvis. Findings highly concerning for graft failure or aneurysm leak. 2. Surgical clips and induration of fat in the right groin at site of recent catheter insertion. No drainable collection identified. 3. Small pleural effusions bilaterally. 4. Hydrocele. Findings were discussed with LILIYA Luna on 01/29/2023 11:20 AM EST COMMENTS: Consistent with the [place]'s Incidental Findings Committee white paper (J Am Duong Radiol 2018): Any incidental renal lesion less than 1 cm or classified as too small to characterize, or any incidental cystic renal lesion characterized as simple-appearing, is likely benign. No follow-up imaging is recommended for these lesions per consensus recommendations based on imaging criteria.
--- NOTE | 2023-01-29 09:46 | PC.NURSE ---
Pt provided with ice chips
[2023-01-29 10:01] VITALS: BP 192/77; PULSE 100; RESP 20; O2SAT 97
--- NOTE | 2023-01-29 10:03 | PC.NURSE ---
Pt gone to RAD via stretcher
--- NOTE | 2023-01-29 10:07 | PC.NURSE ---
Dr. Brice speaking with family to update on POC
[2023-01-29 10:19] LABS: Lymphocytes % 6 % (10-50); Monocytes % 2 % (2-9); Neutrophils % 92 % (42-76); Platelet Estimate Normal; RBC Morphology Normal; Total Cells Counted 100
--- NOTE | 2023-01-29 10:29 | PC.NURSE ---
Pt returned from RAD
[2023-01-29 10:31] VITALS: BP 167/62; PULSE 102; RESP 20; O2SAT 98
--- NOTE | 2023-01-29 10:33 | PC.NURSE ---
Spoke with [facility] transfer center about possible transfer to vascular surgery. Advised they would call back when they had someone available.
--- NOTE | 2023-01-29 10:41 | PC.NURSE ---
Dr. Brice speaking with Dr. Terry at
[2023-01-29 10:42] LABS: Coronavirus 19, PCR Not Detected (NotDetected); Influenza A, PCR Not Detected (NotDetected); Influenza B, PCR Not Detected (NotDetected)
--- NOTE | 2023-01-29 10:44 | PC.NURSE ---
Pt accepted to [facility] by Dr. Rausch
[2023-01-29 11:11] VITALS: BP 151/68; PULSE 103; RESP 15; O2SAT 94
--- NOTE | 2023-01-29 11:25 | PC.NURSE ---
[facility] CALLED FOR EMERGENCY TRANSFER TO ER
--- NOTE | 2023-01-29 11:25 | PC.NURSE ---
Pt cleaned up and repositioned in bed. No other needs voiced at this time.
[2023-01-29 11:49] VITALS: BP 151/68; PULSE 103; RESP 15; TEMP 36.7
== END 2023-01-29 11:50 | disposition short-term general hospital (02) ==
PROVIDERS: Emergency Provider Emergency Medicine; PCP Nurse Practitioner Family
DX: R22.41 Localized swelling, mass and lump, right lower limb (principal); R50.9 Fever, unspecified; J44.9 Chronic obstructive pulmonary disease, unspecified; I13.0 Hypertensive heart and chronic kidney disease with heart failure and stage 1 through stage 4 chronic kidney disease, or unspecified chronic kidney disease; I50.20 Unspecified systolic (congestive) heart failure; N18.9 Chronic kidney disease, unspecified; I25.10 Atherosclerotic heart disease of native coronary artery without angina pectoris; I48.91 Unspecified atrial fibrillation; I71.40 Abdominal aortic aneurysm, without rupture, unspecified; F17.210 Nicotine dependence, cigarettes, uncomplicated
CPT/HCPCS: 73701; 74177; 80053; 82550; 83605; 85007; 85025; 87040; 87636; 93005; 96361; 96365; 96366; 96367; 99285; J2543; Q9967

== ENCOUNTER 2023-05-17 10:34 | Outpatient (CLI) | payer MEDICARE, BC, SELFPAY ==
[2023-05-17 12:35] LABS: Basophils # 0.1 K/mm3 (0-0.2); Basophils % 0.6 % (0.1-2.0); Eosinophils # 0.1 K/mm3 (0.0-0.4); Eosinophils % 1.2 % (0.1-12.0); Hematocrit 40.4 % (42.0-52.0); Hemoglobin 12.4 g/dL (14.1-18.0); Lymphocytes # 1.4 K/mm3 (0.7-4.5); Lymphocytes % 17.5 % (10-50); Mean Corpuscular HGB Conc 30.8 g/dL (31.8-35.4); Mean Corpuscular Hemoglobin 31.2 pg (27.0-31.2); Mean Corpuscular Volume 101.5 fl (80-94); Monocytes # 0.4 K/mm3 (0.1-1.0); Monocytes % 5.7 % (1.7-9.3); Neutrophils # 5.8 K/mm3 (1.8-7.8); Neutrophils % 74.9 % (37.0-80.0); Platelet Count 294 K/mm3 (142-424); Red Blood Count 3.98 M/mm3 (4.60-6.20); Red Cell Distribution Width 16.5 % (11.5-17.5); White Blood Count 7.7 K/mm3 (4.8-10.8)
[2023-05-17 13:05] LABS: Chloride 106 mmol/L (98-107); Potassium 3.5 mmoL/L (3.5-5.1); Sodium 143 mmol/L (136-145)
[2023-05-17 13:07] LABS: Alanine Aminotransferase 16 U/L (12-78); Blood Urea Nitrogen 8 mg/dl (9-20); Estimated Glomerular Filt Rate 109 ml/min (>60); GFR (African American) 131 ML/MIN (>60)
[2023-05-17 13:08] LABS: Albumin Level 3.2 g/dl (3.5-5.0); Albumin/Globulin Ratio 1.2 (1.1-1.8); Alkaline Phosphatase 145 U/L (38-126); Anion Gap 7.5 mEq/L (5-15); Aspartate Amino Transferase 21 U/L (17-59); Bilirubin,Total 0.3 mg/dl (0.2-1.3); Calcium 8.9 mg/dl (8.4-10.2); Carbon Dioxide 33 mmol/L (22.0-30.0); Globulin 2.6 g/dL (1.3-3.2); Glucose 109 mg/dl (74-100); Total Protein,Serum 5.8 g/dl (6.3-8.2)
[2023-05-17 13:35] LABS: Microscopic, Urine URINE MICROSCOPIC (MICROSCOPIC)
[2023-05-17 13:45] LABS: Appearance,Urine CLEAR (Clear); Bilirubin,Urine Negative (Negative); Blood, Urine Negative (Negative); Color,Urine YELLOW (Yellow); Glucose,Urine (UA) Negative (Negative); Ketones,Urine Negative (Negative); Leukocyte Esterase,Urine Negative (Negative); Nitrate,Urine Negative (Negative); Protein,Urine Negative (Negative); Specific Gravity, Urine 1.025 (1.005-1.030)
[2023-05-17 14:21] LABS: Amorphous Sediment,Urine 2+ /lpf; Bacteria,Urine 1+ /lpf; Calcium Oxalate Crystals,Urine 1+ /lpf; RBC,Urine Occasional #/hpf (0-3); WBC,Urine Occasional #/hpf (0-3)
[2023-05-17 14:22] LABS: Mucus,Urine Trace /lpf
== END 2023-05-17 23:59 ==
PROVIDERS: PCP Nurse Practitioner Family; Visit Provider Nurse Practitioner Family
DX: R53.83 Other fatigue (principal); I10 Essential (primary) hypertension; E78.5 Hyperlipidemia, unspecified; Z79.899 Other long term (current) drug therapy
CPT/HCPCS: 80053; 81001; 85025

== ENCOUNTER 2023-05-19 10:59 | Emergency (ER) | payer MEDICARE, BC, SELFPAY ==
--- NOTE | 2023-05-19 10:57 | ECG_ITS ---
APPROVED REPORT Exam: Resting ECG HR:66 bpm ECG Measurements Heart Rate 66 AXES QRSd 94 QRS -8 QT 427 T 172 QTc 440 Conclusion ATRIAL FIBRILLATION LOW QRS VOLTAGE IN PRECORDIAL LEADS [QRS DEFLECTION < 1.0 mV IN CHEST LEADS] INFERIOR MYOCARDIAL INFARCTION , PROBABLY OLD [40+ ms Q WAVE AND/OR ST/T ABNORMALITY IN II/aVF] Electronically signed by : HEMANTH PERALTA, 05/19/2023 23:23:51
[2023-05-19 11:00] VITALS: BP 117/54; PULSE 73; RESP 16; TEMP 36.7; O2SAT 96; BMI 26.6
--- NOTE | 2023-05-19 11:06 | CT_ITS ---
FINAL REPORT TECHNIQUE: Axial imaging of the head was obtained without contrast. This study was performed with techniques to keep radiation doses as low as reasonably achievable, (ALARA). Individualized dose reduction techniques using automated exposure control or adjustment of mA and/or kV according to the patient''s size were employed. CLINICAL HISTORY: ams, h/o cva COMPARISON: 09/26/2022 FINDINGS: There is a moderate-sized mixed age left subdural hematoma. The hemorrhage measures 11 mm in thickness. There is no associated midline shift due to the degree of atrophy. There is advanced atrophy and chronic microvascular change. The ventricles are normal in size. The sinuses are unremarkable. There is no acute osseous abnormality. IMPRESSION: Moderate sized left subdural hemorrhage of mixed age without midline shift. The ER physician was unavailable, with the patient. An ER nurse was notified of the findings at 12:01 PM. Reviewed, Interpreted and Dictated by Que Anton MD Transcribed by COOPER Young Authenticated and [facility]
--- NOTE | 2023-05-19 11:06 | XR_ITS ---
FINAL REPORT CLINICAL HISTORY: Acute cough COMPARISON: 09/26/2022 FINDINGS: A single portable view of the chest was obtained. The heart size and pulmonary vascularity are within normal limits. The patient is status post median sternotomy. Left basilar opacities are worrisome for pneumonia. The bony thorax is intact. IMPRESSION: Left basilar opacities worrisome for pneumonia. Reviewed, Interpreted and Dictated by Anjum Douglas III, MD Transcribed by Yasmeen Gutierres Authenticated and [facility]
[2023-05-19 11:07] VITALS: PULSE 63; O2SAT 93
--- NOTE | 2023-05-19 11:10 | HMH.EDGENADL ---
Discharge Plan Disposition Chief Complaint: Altered Mental Status Prescriptions Prescriptions: No Action ezetimibe-simvastatin 10-40 mg tablet 1 tab PO HS allopurinol 100 mg tablet 200 mg PO DAILY tamsulosin 0.4 mg capsule See Rx Instructions .ROUTE .COMPLEX Qty: 90 3RF Dose Instruction: TAKE 1 CAPSULE DAILY 30 MINUTES AFTER A MEAL THE SAME TIME EVERY DAY FOR PROSTATE Rx Instructions: TAKE 1 CAPSULE DAILY 30 MINUTES AFTER A MEAL THE SAME TIME EVERY DAY FOR PROSTATE losartan 50 mg tablet See Rx Instructions .ROUTE .COMPLEX Qty: 90 2RF Dose Instruction: TAKE 1 TABLET BY MOUTH ONCE DAILY FOR HIGH BLOOD PRESSURE Rx Instructions: TAKE 1 TABLET BY MOUTH ONCE DAILY FOR HIGH BLOOD PRESSURE Xarelto 20 mg tablet 20 mg PO DAILY Qty: 30 5RF clopidogrel [Plavix] 75 mg tablet 75 mg PO DAILY Xarelto 15 mg tablet 20 mg PO QPMWITHMEAL gabapentin 600 mg tablet 600 mg PO TID trazodone 100 mg tablet 100 mg PO HSP PRN (Reason: Sleep) lansoprazole 30 mg capsule,delayed release(DR/EC) 30 mg PO DAILY levocetirizine 5 mg tablet 5 mg PO DAILY acetaminophen 500 mg Tablet 500 mg PO Q6H PRN (Reason: Pain) levofloxacin 750 mg Tablet 750 mg PO DAILY oxycodone 5 mg Tablet 5 mg PO Q6 PRN (Reason: Pain) loratadine 10 mg Capsule 10 mg PO DAILY metoprolol tartrate 75 mg Tablet 75 mg PO TID Trelegy Ellipta 100-62.5-25 mcg Blister With Device 1 inh INHALATION DAILY Stand Alone Forms Stand Alone Forms: Transfer Record - ED Instructions Patient Instructions: DI for Altered Mental Status Discharge ED Provider: Darin Resendez General Adult HPI General Chief complaint: Altered Mental Status Stated complaint: confusion Time Seen by Provider: 05/19/23 11:00 Mode of Arrival: EMS Source of Information: EMS Limitations: No Limitations Description of Symptoms (Recalled from ER Triage Doc. by RN): EMS states that family reported that the patient has been more confused and was found naked and urinating on himself. Patient denies any of these problems. History of Present Illness HPI narrative: Patient is an 82-year-old male with history of HTN, HLD, CAD, CKD, heart failure, A-fib on Eliquis who presents due to altered mental status. Per EMS, patient's family checked on him this morning at approximately 0500 and noticed he was not acting like himself. He was last in his normal state yesterday at unknown time. Family noted he was confused. Patient had been found naked and urinating where he was not supposed to. EMS states patient was confused during transport however hemodynamically stable with no focal neurologic deficits. On arrival to the hospital, patient states he was feeling bad earlier but feels fine now. He is unable to elaborate on the bad feeling he had. He denies any complaints at this time. Related Data Home Medications Medication Instructions Recorded Confirmed ezetimibe 10 mg-simvastatin 40 mg 1 tab PO HS Cholesterol 07/11/17 01/29/23 tablet allopurinol 100 mg tablet 200 mg PO DAILY gout 09/19/22 01/29/23 clopidogrel 75 mg tablet (Plavix) 75 mg PO DAILY platelet inhibitor 09/26/22 01/29/23 rivaroxaban 15 mg tablet (Xarelto) 20 mg PO QPMWITHMEAL Blood 09/26/22 01/29/23 Thinner/Afib gabapentin 600 mg tablet 600 mg PO TID nerve pain 09/27/22 01/29/23 lansoprazole 30 mg capsule,delayed 30 mg PO DAILY Acid Reflux 09/27/22 01/29/23 release levocetirizine 5 mg tablet 5 mg PO DAILY Allergy Symptoms 09/27/22 01/29/23 trazodone 100 mg tablet 100 mg PO HSP PRN Sleep 09/27/22 01/29/23 acetaminophen 500 mg tablet 500 mg PO Q6H PRN Pain 01/29/23 01/29/23 fluticasone fur. 100 mcg-umeclid 1 inh inhalation DAILY 01/29/23 01/29/23 62.5 mcg-vilant 25 mcg inhalat.powder (Trelegy Ellipta) levofloxacin 750 mg tablet 750 mg PO DAILY 01/29/23 01/29/23 loratadine 10 mg capsule 10 mg PO DAILY 01/29/23 01/29/23 metoprolol tartrate 75 mg tablet 75 mg PO TID 01/29/23 01/29/23 oxycodone 5 mg tablet 5 mg PO Q6 PRN Pain 01/29/23 01/29/23 Previous Rx's Medication Instructions Recorded tamsulosin 0.4 mg capsule See Rx Instructions .Route 11/28/22 .COMPLEX #90 caps losartan 50 mg tablet See Rx Instructions .Route 12/29/22 .COMPLEX #90 tabs rivaroxaban 20 mg tablet (Xarelto) 20 mg PO DAILY #30 tabs 01/30/23 Allergies Allergy/AdvReac Type Severity Reaction Status Date / Time No Known Allergies Allergy Verified 01/29/23 09:39 [facility] Disclaimer: The information contained in this section may have been updated after the patient was seen, as this information can be updated by other users. Medical History (Updated 01/29/23 @ 10:47 by Liu Brice MD) Stenosis of carotid artery Left carotid bruit BPH without obstruction/lower urinary tract symptoms BPH (benign prostatic hyperplasia) CALEB (renal artery stenosis) HFrEF (heart failure with reduced ejection fraction) CHF (congestive heart failure) Dyspnea HLD (hyperlipidemia) HTN (hypertension) CAD (coronary artery disease) Abdominal aortic aneurysm CKD (chronic kidney disease) Atrial fibrillation Family History (Updated 09/26/22 @ 17:50 by Lizzy Howe RN) Other No significant family history Social History Smoking Status: Unknown if ever smoked second hand exposure: No alcohol intake: current substance use type: denies use current occupational status: retired Travel in the last 8 weeks: Inside the [place] household members: spouse housing: house caffeine: Yes ROS Obtained: Yes All systems reviewed & no additional complaints except as documented Neurologic Neurologic: Reports behavioral changes and Reports confusion Physical Exam General General appearance: alert and in no apparent distress Comment: Resting comfortably in no distress. Head Head exam: atraumatic, normocephalic and normal inspection Eye Eye exam: Present normal appearance, PERRL and EOMI ENT ENT exam: Present normal exam, normal oropharynx, mucous membranes moist, TM's normal bilaterally and normal external ear exam Neck Neck exam: Present normal inspection, full ROM and trachea midline; Absent meningismus or lymphadenopathy Chest Chest inspection: Present normal inspection and symmetric chest wall rise; Absent tenderness Respiratory Respiratory exam: Present normal lung sounds bilaterally; Absent respiratory distress Cardiovascular Cardiovascular exam: Present regular rate and normal rhythm; Absent JVD Abdominal Exam Abdominal exam: Present soft and normal bowel sounds; Absent distention, tenderness or guarding Extremities Exam Extremities exam: Present normal inspection, full ROM and normal capillary refill; Absent calf tenderness Back Exam Back exam: Present normal inspection; Absent tenderness Neurological Exam Neurological exam: Present alert and oriented X3 Expanded Neurological Exam Comment: Alert, oriented only to person and place. Cranial nerves intact. No dysmetria. Appropriate strength and sensation in all extremities. Psychiatric Psychiatric exam: Present normal affect and normal mood Skin Skin exam: Present warm, dry, intact and normal color Lymphatic Lymphatic Findings: no adenopathy Medical Decision Making Anjel Inquiry Pt receiving controlled substance: No Anjel was queried for this patient: No Vital Signs: 05/19/23 11:00 05/19/23 11:07 Temperature 98.1 F Temperature Source Oral Pulse Rate 63 Pulse Rate [Radial] 73 Respiratory Rate 16 Blood Pressure [Right Arm] 117/54 L Blood Pressure Mean [Right Arm] 75 Blood Pressure Source [Right Arm] Automatic Cuff Blood Pressure Position [Right Arm] Sitting 02 Sat by Pulse Oximetry 96 93 L Oxygen Delivery Method Room Air Lab Data Lab Results 05/19/23 11:05: WBC 11.5 H D, RBC 3.93 L, Hgb 12.3 L, Hct 39.3 L, MCV 99.9 H, MCH 31.4 H, MCHC 31.4 L, RDW 16.6, Plt Count 217 D, MPV 8.8, Neut % (Auto) 82.8 H, Lymph % (Auto) 12.0, [place] % (Auto) 3.2, Eos % (Auto) 1.5, Baso % (Auto) 0.6, Neut # (Auto) 9.5 H, Lymph # (Auto) 1.4, [place] # (Auto) 0.4, Eos # (Auto) 0.2, Baso # (Auto) 0.1, PT 11.4, INR 1.06, APTT 29.6, Sodium 140, Potassium 3.9, Chloride 107, Carbon Dioxide 29, Anion Gap 7.9, BUN 10, Creatinine 0.70, Estimated Creat Clear 60, Estimated GFR 109, Est GFR ( Amer) 131, Glucose 118 H, Calcium 8.7, Magnesium 2.1, Total Bilirubin 0.7, AST 45 D, ALT 22 D, Alkaline Phosphatase 131 H, Troponin I < 0.01, NT-Pro-B Natriuret Pep 4870 H, Total Protein 6.2 L, Albumin 3.3 L, Globulin 2.9, Albumin/Globulin Ratio 1.1, Lipase 27 05/19/23 11:12: SARS-CoV-2 (PCR) Not detected, Influenza A Untype (PCR) Not detected, Influenza Type B (PCR) Not detected 05/19/23 11:49: Urine Color Yellow, Urine Appearance Sl cloudy, Urine pH 8.0, Ur Specific [place] 1.020, Urine Protein Negative, Urine Glucose (UA) Negative, Urine Ketones Negative, Urine Blood Negative, Urine Nitrate Negative, Urine Bilirubin Negative, Urine Urobilinogen 4.0, Ur Leukocyte Esterase Negative, Urine RBC None, Urine WBC None, Ur Squamous Epith Cells Occasional, Urine Bacteria Trace, Urine Mucus Trace 05/19/23 11:05 05/19/23 11:05 Orders (Tests/Meds): ORDERS Category Date Time Status CT head/brain wo con Stat Cat Scan 05/19/23 11:06 Completed CXR --portable [XR chest portable] Stat Exams 05/19/23 11:06 Taken BNP [NT Pro Brain Natriuretic Pep.] Stat Lab 05/19/23 11:05 Completed CBC w/Auto Diff [Complete Blood Count Auto Diff] Stat Lab 05/19/23 11:05 Completed CMP [Comprehensive Metabolic Panel] Stat Lab 05/19/23 11:05 Completed Heparin Anti-Xa Stat Lab 05/19/23 12:17 Ordered Lipase Stat Lab 05/19/23 11:05 Completed Magnesium Stat Lab 05/19/23 11:05 Completed PT INR [Prothrombin Time INR] Stat Lab 05/19/23 11:05 Completed PTT [Activated Partial Thrombo Time] Stat Lab 05/19/23 11:05 Completed Rapid PCR Covid and Flu A/B Stat Lab 05/19/23 11:12 Completed Trop I [Troponin I] Stat Lab 05/19/23 11:05 Completed Troponin I Q3H Lab 05/19/23 14:15 Ordered Troponin I Q3H Lab 05/19/23 17:15 Ordered Urinalysis and Microscopic Stat Lab 05/19/23 11:49 Completed ECG Data Tracing #1: I reviewed this ECG and interpreted as documented below: EKG obtained and read by me showing atrial fibrillation with nonspecific ST segment changes, no signs of acute ischemia. Medical Decision Narrative: In summary, patient is an 82-year-old male, evaluated in the emergency department today due to altered mental status. On arrival, patient is afebrile, hemodynamically stable with normal vital signs. On examination, patient is resting comfortably in no distress but oriented only to person and place. Differential diagnosis includes but is not limited to intracranial abnormality, pneumonia, urinary tract infection, encephalopathy, metabolic derangement. Workup initiated including CBC, CMP, troponin, BNP, lipase, magnesium, urinalysis, chest x-ray, CT head without contrast. Labs independently interpreted by me and significant for WBC 11.5 K, BNP 4870. CT head without contrast obtained and read by me demonstrating left subdural hemorrhage with no midline shift. Per radiologist, there is concern for new bleed in addition to chronic bleed. Patient's family arrived to provide further history, report patient recently restarted his Eliquis. MDs contacted for transfer. Patient accepted for transfer to ED by Dr. Schrader, neurosurgery. Patient is stable for transfer. Patient and family agreeable to transfer. Additional history was provided by EMS. Critical Care Critical Care Time Critical Care Time: No
[2023-05-19 11:17] LABS: Coronavirus 19, PCR Not Detected (NotDetected); Influenza A, PCR Not Detected (NotDetected); Influenza B, PCR Not Detected (NotDetected)
[2023-05-19 11:21] LABS: Basophils # 0.1 K/mm3 (0-0.2); Basophils % 0.6 % (0.1-2.0); Chloride 107 mmol/L (98-107); Eosinophils # 0.2 K/mm3 (0.0-0.4); Eosinophils % 1.5 % (0.1-12.0); Hematocrit 39.3 % (42.0-52.0); Hemoglobin 12.3 g/dL (14.1-18.0); Lymphocytes # 1.4 K/mm3 (0.7-4.5); Mean Corpuscular HGB Conc 31.4 g/dL (31.8-35.4); Mean Corpuscular Hemoglobin 31.4 pg (27.0-31.2); Mean Corpuscular Volume 99.9 fl (80-94); Mean Platelet Volume 8.8 fl (7.4-10.4); Monocytes # 0.4 K/mm3 (0.1-1.0); Monocytes % 3.2 % (1.7-9.3); Neutrophils # 9.5 K/mm3 (1.8-7.8); Neutrophils % 82.8 % (37.0-80.0); Platelet Count 217 K/mm3 (142-424); Red Blood Count 3.93 M/mm3 (4.60-6.20); Red Cell Distribution Width 16.6 % (11.5-17.5); White Blood Count 11.5 K/mm3 (4.8-10.8)
[2023-05-19 11:22] LABS: Potassium 3.9 mmoL/L (3.5-5.1); Sodium 140 mmol/L (136-145)
--- NOTE | 2023-05-19 11:22 | PC.NURSE ---
urinal given to pt for urine sample collection
[2023-05-19 11:24] LABS: Alanine Aminotransferase 22 U/L (12-78); Aspartate Amino Transferase 45 U/L (17-59); Blood Urea Nitrogen 10 mg/dl (9-20); Creatinine Clearance Estimated 60 mL/min (50-200); Estimated Glomerular Filt Rate 109 ml/min (>60); GFR (African American) 131 ML/MIN (>60)
[2023-05-19 11:25] LABS: Albumin Level 3.3 g/dl (3.5-5.0); Albumin/Globulin Ratio 1.1 (1.1-1.8); Alkaline Phosphatase 131 U/L (38-126); Anion Gap 7.9 mEq/L (5-15); Bilirubin,Total 0.7 mg/dl (0.2-1.3); Calcium 8.7 mg/dl (8.4-10.2); Carbon Dioxide 29 mmol/L (22.0-30.0); Globulin 2.9 g/dL (1.3-3.2); Glucose 118 mg/dl (74-100); Lipase 27 U/L (23-300); Magnesium 2.1 mg/dl (1.6-2.3); Total Protein,Serum 6.2 g/dl (6.3-8.2)
[2023-05-19 11:30] VITALS: BP 116/58; PULSE 71; O2SAT 94
[2023-05-19 11:41] LABS: Troponin I < 0.01 ng/ml (0.00-0.034)
[2023-05-19 11:42] LABS: NT Pro Brain Natriuretic Pep. 4870 pg/mL (0-450)
[2023-05-19 11:53] LABS: Microscopic, Urine URINE MICROSCOPIC (MICROSCOPIC)
[2023-05-19 11:54] LABS: Appearance,Urine SL CLOUDY (Clear); Bilirubin,Urine Negative (Negative); Blood, Urine Negative (Negative); Color,Urine YELLOW (Yellow); Glucose,Urine (UA) Negative (Negative); Ketones,Urine Negative (Negative); Leukocyte Esterase,Urine Negative (Negative); Nitrate,Urine Negative (Negative); Protein,Urine Negative (Negative)
[2023-05-19 12:00] VITALS: BP 119/57; PULSE 57; O2SAT 96
[2023-05-19 12:08] LABS: Bacteria,Urine Trace /lpf; Squamous Epithelial Cell,Urine Occasional #/hpf (0-5)
[2023-05-19 12:09] LABS: Mucus,Urine Trace /lpf
--- NOTE | 2023-05-19 12:16 | PC.NURSE ---
calling [facility] transfer center at this time.
--- NOTE | 2023-05-19 12:16 | PC.NURSE ---
[facility] will call back at this time.
--- NOTE | 2023-05-19 12:29 | PC.NURSE ---
per [facility] chely, states to call [facility] ask for him and he will accept pt due to his left chronic SDH per Rahul MICHAEL
[2023-05-19 12:30] VITALS: BP 117/56; PULSE 82; O2SAT 94
--- NOTE | 2023-05-19 12:30 | PC.NURSE ---
Rahul on phone with [facility] for transfer.
[2023-05-19 12:37] LABS: Activated Partial Thrombo Time 29.6 seconds (22.8-30.6); INR 1.06 (0.9-1.1); Prothrombin Time 11.4 seconds (10.1-12.5)
[2023-05-19 12:49] VITALS: BP 117/56; PULSE 79; RESP 18; TEMP 36.7; O2SAT 96
--- NOTE | 2023-05-19 12:49 | PC.NURSE ---
Report given to FERNANDA Dillard at ER.
--- NOTE | 2023-05-19 12:50 | PC.NURSE ---
PT left with [facility] to transfer to [facility]
[2023-05-23 08:58] LABS: Heparin Anti-Xa >1.59 IU/mL (.)
== END 2023-05-19 12:52 | disposition short-term general hospital (02) ==
PROVIDERS: Emergency Provider Student in an Organized Health Care Education/Training Program; PCP Internal Medicine Adolescent Medicine
DX: I62.00 Nontraumatic subdural hemorrhage, unspecified (principal); I48.0 Paroxysmal atrial fibrillation; I11.0 Hypertensive heart disease with heart failure; I50.9 Heart failure, unspecified; E78.5 Hyperlipidemia, unspecified; I25.10 Atherosclerotic heart disease of native coronary artery without angina pectoris; N18.9 Chronic kidney disease, unspecified; Z79.01 Long term (current) use of anticoagulants
CPT/HCPCS: 70450; 71045; 80053; 81001; 83690; 83735; 83880; 84484; 85025; 85520; 85610; 85730; 87636; 93005; 99285

== ENCOUNTER 2023-06-28 10:32 | Outpatient (CLI) | payer MEDICARE, BC, SELFPAY ==
[2023-06-28 11:26] LABS: Chloride 104 mmol/L (98-107); Sodium 139 mmol/L (136-145)
[2023-06-28 11:27] LABS: Potassium 3.8 mmoL/L (3.5-5.1)
[2023-06-28 11:29] LABS: Blood Urea Nitrogen 7 mg/dl (9-20); Carbon Dioxide 32 mmol/L (22.0-30.0); Estimated Glomerular Filt Rate 109 ml/min (>60); GFR (African American) 131 ML/MIN (>60)
[2023-06-28 11:30] LABS: Anion Gap 6.8 mEq/L (5-15); Glucose 84 mg/dl (74-100)
== END 2023-06-28 23:59 | disposition home or self-care (01) ==
LOC: LAB.DROPOF 10:35
PROVIDERS: PCP Nurse Practitioner Family; Visit Provider Nurse Practitioner Family
DX: I25.10 Atherosclerotic heart disease of native coronary artery without angina pectoris (principal); I10 Essential (primary) hypertension; Z79.899 Other long term (current) drug therapy
CPT/HCPCS: 80048

== ENCOUNTER 2023-12-14 14:00 | Outpatient (RCR) | payer MEDICARE, BC, SELFPAY ==
--- NOTE | 2023-08-10 15:11 | HMH.PTOPEV ---
PT Outpatient Evaluation Rehab PT Outpatient Evaluation Start: 08/10/23 13:58 Freq: Status: Active Protocol: Document 08/10/23 13:59 CHELSEA (Rec: 08/10/23 15:03 CHELSEA [id number]) E-signed By Cassia Quesada, PT Outpatient Therapy Subjective History Subjective History This is an initial evaluation for 82 y/o male, Ti Rodríguez, who presents to PT with referral for gait training. 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 Pt went to rehab February 24 and has been home with family care since. Pt received a prosthetic on July 27. Pt sees his philatelic consultant tomorrow for a possible adjustment. Pt reports history of falls. Pt's goal is to work on his walking. Pt has been walking household distances using his prosthetic and a standard walker. Pt uses a w/c for community distances. Pt has been receiving home health PT services until now. PMH: Stenosis of carotid artery, Left carotid bruit, BPH, CALEB, HFrEF, CHF, Dyspnea, HLD, HTN, CAD, AAA, CKD, Atrial fibrillation New diagnosis of cancer in past 12 Yes: Skin cancer removal months? Chief Complaint Gives out/Unstable,Weakness Balance Eval Gait/Posture Asssessment General Gait Observation Decrease Weight Bear (R) Assistive Devices Standard Walker Level of Transfer Assist Standby Assistance,Assistance x1 Timed Up and Go Test 1. Is the Timed Up and Go test result > yes or = to 12 seconds? [place] Feet Together/Eyes open/Stable Surface fail Feet Together/Eyes Closed/Stable Surface fail Feet Together/Eyes open/Unstable Surface fail Feet Together/Eyes Closed/Unstable fail Surface Tinetti Sitting Balance Sitting Balance Steady, safe Arising from Chair Ability to Arise Able, uses arms to help Attempts to Arise Arises on 1st attempt Standing Balance Immediate Standing Balance Steady with support Standing Balance Unsteady Nudged Response Begins to fall Standing with Eyes Closed Unsteady Turning Step Pattern Turning 360 Degrees Discontinuous steps Stability Turning 360 Degrees Unsteady, grabs/staggers Sitting Down Sitting Down Safe, steady Gait and Step Initiation of Gait No hesitancy Right Foot Step Length Does pass stance foot Right Foot Step Height Completely clears floor Left Foot Step Length Does not pass stance foot Left Foot Step Height Completely clears floor Step Description Step Symmetry Step length not equal Step Continuity Stopping or discontinuity Gait Description Path Description Mild/moderate deviation Trunk Description No sway but posturing Walking Stance Heels apart Scoring and Interpretation Tinetti Composite Score (points) 13 Interpretation of Scores High risk for falls(< 19) Outpatient Therapy Assessment Impairments Problems/Impairmments Impaired Strength,Impaired Endurance,Impaired Transfers, Impaired Gait Pattern,Impaired Walking,Impaired Standing, Impaired Stair Climbing, Impaired Incline Stepping, Impaired Recreational Activities,Impaired Balance, Impaired Tinnetti Score, Impaired TUG Time Prognosis Rehab Potential Good Comment Pt demo'd impaired gait and 2 LOB during gait assessment requiring assistance to prevent fall. Pt would benefit from skilled OP PT to address safety, gait impairments, and balance deficits. Clinical Impression Consistent with Diagnosis Yes Short Term Goals Number of Weeks 4 Improve Gait Pattern with Assistive Yes: Demo even step length Device with Min VCs and walker. Increase Ability to Walk Yes: 50' with standard walker without LOB; SUP Increase Tinnetti Score Yes: Improve by 3 points to improve safety with ambulation . Patient to be Ind w/ HEP Yes [facility]dc Goals Number of Weeks 8 Improve Gait Pattern with Assistive Yes: Demo even step length and Device stance time using walker with IND. Increase Ability to Walk Yes: Ambulate 100' with 2 turns using standard walker; no LOB Improve Ability to Climb Stairs Yes: 12 6 steps with step-to pattern and HRs; SUP Increase Tinnetti Score Yes: Improve to > or = 18 to decrease fall risk. Patient to be Ind w/ Advanced HEP Yes Outpatient Therapy Plan of Care Treatment Plan May Include Therapeutic Exercise Including Home Yes Exercise Program Neuromuscular Re-education Yes Therapeutic Activities to Return to Yes Previous Functional/Work Level Gait Training Yes ADL/Self Care Education Yes Thermal Modalities Yes Orthotics/Bracing/Splinting Yes Eval/Re-Eval Yes Frequency Times per week 2x Duration Number of Weeks 7-8 weeks Addendums This patient is a candidate for social No or vocational rehab? Patient/Guardian verbally acknowledges Yes understanding of treatment program and consents to further treatment? Patient/Guardian verbally acknowledges Yes understanding of diagnosis, prognosis and goals for treatment? Eval Complexity PT Charges 74479 - Moderate Complexity Shoulder/Elbow Eval Shoulder Objective Measurements Elbow Objective Measurements PHYSICIAN CERTIFICATION: I certify the specified therapy services for Ti Rodríguez are required, authorized, and reviewed every 30 days.
== END 2023-12-14 23:59 | disposition home or self-care (01) ==
LOC: PT 14:00
PROVIDERS: Visit Provider Nurse Practitioner Family
DX: R26.89 Other abnormalities of gait and mobility (principal)
CPT/HCPCS: 97112; 97116; 97163; 97164; 97530; 97535

== ENCOUNTER 2024-03-25 15:33 | Outpatient (RCR) | payer MEDICARE, BC, SELFPAY ==
--- NOTE | 2024-03-25 16:41 | HMH.PTOPEV ---
PT Outpatient Evaluation Rehab PT Outpatient Evaluation Start: 03/25/24 15:41 Freq: Status: Active Protocol: Document 03/25/24 16:22 PHORCHILO (Rec: 03/25/24 16:41 PHORNE [id number]) E-signed By Jorge Lopez, PT Outpatient Therapy Subjective History Subjective History This is the initial PT eval for Ti Rodríguez, 83 yowm who presents with poor static and dynamic standing balance and difficulty ambulating ~ 1 yr S/P R AKA. He presents with R AKA prosthesis in place and using w/c for primary mobility, but he did bring his RW with hi to the clinic. He reports no c/o dizziness or lightheadedness, My balance is just way off. He reports limited activity at home at baseline, but he does walk as needed. He has been to the pens and pencils dipper multiple times over the past several mos to get his prosthetic limb adjusted for proper fit. Chief Complaint Weakness,Decreased Coordination Symptoms Relieved By Rest/Positioning Symptoms Aggravated By Physical Activity,Walking Prior Functional Limitations None Current Functional Limitations Standing,Recreation Activity, Walking,Stairs Symptom Description Activity Dependent Balance Eval Hx of Falls Hx Falls Yes Number in last 6 months 3 Gait/Posture Asssessment General Gait Observation Decrease Weight Bear (R), Decrease Stride Lngth (L) Assistive Devices Rolling / Wheeled Walker Timed Up and Go Test 1. Is the Timed Up and Go test result > yes or = to 12 seconds? [place] Feet Together/Eyes open/Stable Surface fail Feet Together/Eyes Closed/Stable Surface fail Feet Together/Eyes open/Unstable Surface fail Feet Together/Eyes Closed/Unstable fail Surface Tinetti Sitting Balance Sitting Balance Steady, safe Arising from Chair Ability to Arise Able, uses arms to help Attempts to Arise Able, requires >1 attempt Standing Balance Immediate Standing Balance Unsteady Standing Balance Unsteady Nudged Response Staggers, catches self Standing with Eyes Closed Unsteady Turning Step Pattern Turning 360 Degrees Discontinuous steps Stability Turning 360 Degrees Unsteady, grabs/staggers Sitting Down Sitting Down Uses arms or unsteady Gait and Step Initiation of Gait No hesitancy Right Foot Step Length Does pass stance foot Right Foot Step Height Completely clears floor Left Foot Step Length Does not pass stance foot Left Foot Step Height Completely clears floor Step Description Step Symmetry Step length not equal Step Continuity Stopping or discontinuity Gait Description Path Description Marked deviation Trunk Description Marked sway or uses aide Walking Stance Heels apart Scoring and Interpretation Tinetti Composite Score (points) 9 Interpretation of Scores High risk for falls(< 19) Miscellaneous Dx PT Eval Objective Objective TUG= 48 sec FTSTS= 51 sec B LE MMT: HIP FLEX 4/5, HIP ABD 4/5, HIP ADD 4-/5, HIP EXT 4/5 Outpatient Therapy Assessment Impairments Problems/Impairmments Impaired Strength,Impaired Endurance,Impaired Transfers, Impaired Gait Pattern,Impaired Walking,Impaired Standing, Impaired Household Care, Impaired Stepping on Uneven Surface,Impaired Recreational Activities,Impaired Balance, Impaired TUG Time,Impaired Self Care/Self Management Prognosis Rehab Potential Good Comment Signs and symptoms consistent with decreased core stability, decreased hip strength B, poor static and dynamic standing balance, and decreased endurance in the setting of R LE AKA with prosthesis. Skilled therapy is indicated to improve all of these deficits in order to aid pt return to PLOF. Clinical Impression Consistent with Diagnosis Yes Short Term Goals Number of Weeks 6 Increase Strength Yes: B LE hip strength 4+/5 throughout Improve Gait Pattern with Assistive Yes: Step-through gait pattern Device with L LE using RW Increase Tinnetti Score Yes: 12 or more Decrease TUG Time Yes: 40 sec or less Improve Self Care/Self Management Yes: FTSTS less than 45 sec Patient to be Ind w/ HEP Yes [employer] Integration Specialist Goals Number of Weeks 12 Increase Strength Yes: B LE hip strength 5/5 throughout Improve Gait Pattern with Assistive Yes: Step through gait pattern Device on L LE with least restrictive AD Increase Tinnetti Score Yes: 19 or more Decrease TUG Time Yes: 30 sec or less Improve Self Care/Self Management Yes: FTSTS less than 35 sec Patient to be Ind w/ Advanced HEP Yes Outpatient Therapy Plan of Care Treatment Plan May Include Therapeutic Exercise Including Home Yes Exercise Program Manual Therapy Techniques Yes Neuromuscular Re-education Yes Therapeutic Activities to Return to Yes Previous Functional/Work Level Gait Training Yes ADL/Self Care Education Yes Orthotics/Bracing/Splinting Yes Massage Yes Eval/Re-Eval Yes Frequency Times per week 2-3 Duration Number of Weeks 12 Addendums This patient is a candidate for social No or vocational rehab? Patient/Guardian verbally acknowledges Yes understanding of treatment program and consents to further treatment? Patient/Guardian verbally acknowledges Yes understanding of diagnosis, prognosis and goals for treatment? Eval Complexity PT Charges 17449 - High Complexity Shoulder/Elbow Eval Shoulder Objective Measurements Elbow Objective Measurements PHYSICIAN CERTIFICATION: I certify the specified therapy services for Ti Rodríguez are required, authorized, and reviewed every 30 days.
== END 2024-03-29 23:59 | disposition home or self-care (01) ==
LOC: PT 15:33
PROVIDERS: Visit Provider Nurse Practitioner Family
DX: R27.0 Ataxia, unspecified (principal); S88.92 Partial traumatic amputation of lower leg, level unspecified
CPT/HCPCS: 97110; 97163

== ENCOUNTER 2024-03-28 13:32 | Observation (INO) | payer MEDICARE, BC, SELFPAY ==
[2024-03-28] VITALS (13 sets, daily range): BP systolic 118–187; BP diastolic 58–107; PULSE 83–107; RESP 16–19; TEMP 36.6–38.4; O2SAT 90–98; BMI 23.3
--- NOTE | 2024-03-28 13:36 | ECG_ITS ---
APPROVED REPORT Exam: Resting ECG HR:99 bpm ECG Measurements Heart Rate 99 AXES QRSd 97 QRS 10 QT 349 T 107 QTc 405 Conclusion ATRIAL FIBRILLATION WITH ABERRANT CONDUCTION OR VENTRICULAR PREMATURE COMPLEXES NONSPECIFIC ST & T-WAVE ABNORMALITY ABNORMAL ECG UNCONFIRMED REPORT Electronically signed by : JUAN GONZALEZ, 03/29/2024 06:52:01
--- NOTE | 2024-03-28 13:36 | ED_ITS ---
<Statement entered by Nick Wiley MD - 03/28/24 22:33> I was consulted by the PALMIRA, and we discussed the complexity of problems being addressed. I approved the treatment and management plan for this patient's care in the emergency department, thus performing a substantial portion of the medical decision making. Nick Wiley MD Discharge Plan Disposition Patient Disposition: Admitted Condition: Serious Clinical Impressions Clinical Impression: Acute hypoxemic respiratory failure, Influenza A, Elevated brain natriuretic peptide (BNP) level Right lower lobe pneumonia Qualifiers: Pneumonia type: due to unspecified organism Qualified Code(s): J18.9 - Pneumonia, unspecified organism Discharge ED Provider: Sary Obrien General Adult HPI <COOPER Byrd - Last Filed: 03/28/24 20:44> General Chief complaint: Weakness Stated complaint: WEAKNESS,SOA Time Seen by Provider: 03/28/24 13:36 History of Present Illness HPI narrative: Patient presents for EMS initially with a chief complaint of weakness. Patient himself gives a history of 3 days of feeling poorly with a cough and fever. Several members in the household are also ill. Patient does at baseline have a history of COPD but is not on home O2, has a history of CHF but has not had a recent echocardiogram and the last one that I have for review was in 2019 that showed an EF of 45%. He does not currently report chest pain hemoptysis hematochezia melena nausea vomiting diarrhea but does report a productive cough and slight shortness of breath on exertion. EMS reports patient was satting at 83% on their arrival. He arrives and he is at 83% off of oxygen but corrects easily to 94% on 2 L by nasal cannula Related Data Home Medications ?Medication ?Instructions ?Recorded ?Confirmed ezetimibe 10 mg-simvastatin 40 mg 1 tab PO HS Cholesterol 07/11/17 03/28/24 tablet lansoprazole 30 mg capsule,delayed 30 mg PO DAILY Acid Reflux 09/27/22 03/28/24 release levocetirizine 5 mg tablet 5 mg PO DAILY Allergy Symptoms 09/27/22 03/28/24 trazodone 100 mg tablet 100 mg PO HSP PRN Sleep 09/27/22 03/28/24 fluticasone fur. 100 mcg-umeclid 1 inh inhalation DAILY 01/29/23 03/28/24 62.5 mcg-vilant 25 mcg inhalat.powder (Trelegy Ellipta) metoprolol tartrate 75 mg tablet 50 mg PO BID 01/29/23 03/28/24 apixaban 5 mg tablet (Eliquis) 5 mg PO BID 03/28/24 03/28/24 duloxetine 60 mg capsule,delayed 60 mg PO DAILY 03/28/24 03/28/24 release famotidine 20 mg tablet 20 mg PO DAILY 03/28/24 03/28/24 fluticasone propionate 50 1 spray intranasal DAILY 03/28/24 03/28/24 mcg/actuation nasal spray,suspension potassium chloride 20 mEq 20 meq PO DAILY 03/28/24 03/28/24 tablet,extended release(part/cryst) tamsulosin 0.4 mg capsule 0.4 mg PO HS 03/28/24 03/28/24 Allergies Allergy/AdvReac Type Severity Reaction Status Date / Time No Known Allergies Allergy Verified 01/29/23 09:39 [facility] <COOPER Byrd - Last Filed: 03/28/24 20:44> [facility] Disclaimer: The information contained in this section may have been updated after the patient was seen, as this information can be updated by other users. Medical History Stenosis of carotid artery Left carotid bruit BPH without obstruction/lower urinary tract symptoms BPH (benign prostatic hyperplasia) CALEB (renal artery stenosis) HFrEF (heart failure with reduced ejection fraction) CHF (congestive heart failure) Dyspnea HLD (hyperlipidemia) HTN (hypertension) CAD (coronary artery disease) Abdominal aortic aneurysm CKD (chronic kidney disease) Atrial fibrillation Family History Other No significant family history Social History Smoking Status: Current some day smoker tobacco type: cigarettes second hand exposure: No alcohol intake: never substance use type: denies use current occupational status: retired Travel in the last 8 weeks: Inside the [place] household members: spouse housing: house caffeine: Yes Have you lived/traveled outside [place] in past 30 days?: No Contact w/someone who lives/traveled outside US past 30 days?: No Exposure to someone with infectious disease in past 14 days?: No Do you have a fever (greater than 100.4 F or 38 C)?: No Have you tested positive for COVID-19: No Exposed to someone with COVID-19 in past 14 days?: No Do you have a sore throat?: No Do you have a cough?: No Do you have any weakness?: Yes Are you experiencing any nausea/vomitting?: No Do you have any diarrhea?: No Are you experiencing any unusual bleeding?: No Do you have any muscle aches/pain?: No Do you have any abdominal pain?: No Are you experiencing loss of taste or smell?: No Other Medical History Have you received the Flu Vaccine for this season: No Have you received the Pneumonia Vaccine: No <COOPER Byrd - Last Filed: 03/28/24 20:44> ROS Obtained: Yes Systems reviewed as appropriate & no additional complaints except as documented Physical Exam <COOPER Byrd - Last Filed: 03/28/24 20:44> General General appearance: alert and in no apparent distress Respiratory Respiratory exam: Present normal lung sounds bilaterally Cardiovascular Cardiovascular exam: Present regular rate and irregular rhythm Neurological Exam Neurological exam: Present alert, oriented X3 and CN II-XII intact Medical Decision Making <COOPER Byrd - Last Filed: 03/28/24 20:44> Medical Records Medical records reviewed: Yes I reviewed the patient's medical records. Screening: Per USPSTF and CDC recommendations, given the prevalence of disease in our region, it is our hospital?s policy to screen for HIV and viral Hepatitis for all patients aged 18 and over and those with ongoing risk factors. Anjel Inquiry Pt receiving controlled substance: No Vital Signs: 03/28/24 13:33 03/28/24 13:35 03/28/24 13:40 Temperature 101.1 F H Temperature Source Oral Pulse Rate 83 93 H Pulse Rate [Left Radial] 97 H Respiratory Rate 19 Blood Pressure 187/70 H 181/107 H Blood Pressure [Right Arm] 181/107 H Blood Pressure Mean [Right Arm] 131 02 Sat by Pulse Oximetry 97 95 97 Oxygen Delivery Method Room Air Room Air Room Air Oxygen Flow Rate (LPM) 03/28/24 14:01 03/28/24 14:30 03/28/24 15:00 Temperature Temperature Source Pulse Rate 99 H 88 104 H Pulse Rate [Left Radial] Respiratory Rate Blood Pressure 168/69 H 139/60 125/60 Blood Pressure [Right Arm] Blood Pressure Mean [Right Arm] 02 Sat by Pulse Oximetry 98 90 L 90 L Oxygen Delivery Method Nasal Cannula Nasal Cannula Nasal Cannula Oxygen Flow Rate (LPM) 03/28/24 15:45 03/28/24 16:00 03/28/24 16:30 Temperature Temperature Source Pulse Rate 107 H 100 H 107 H Pulse Rate [Left Radial] Respiratory Rate Blood Pressure 142/68 H 118/64 118/72 Blood Pressure [Right Arm] Blood Pressure Mean [Right Arm] 02 Sat by Pulse Oximetry 97 93 L 96 Oxygen Delivery Method Nasal Cannula Nasal Cannula Nasal Cannula Oxygen Flow Rate (LPM) 03/28/24 16:35 03/28/24 17:00 03/28/24 17:03 Temperature 99.7 F H Temperature Source Pulse Rate 107 H Pulse Rate [Left Radial] Respiratory Rate 18 Blood Pressure 118/72 Blood Pressure [Right Arm] Blood Pressure Mean [Right Arm] 02 Sat by Pulse Oximetry 93 L Oxygen Delivery Method Nasal Cannula Nasal Cannula Oxygen Flow Rate (LPM) 2 2 Lab Data Lab results reviewed: Yes I reviewed the patient's lab results. Lab Results 03/28/24 13:15: WBC 9.1, RBC 4.57 L, Hgb 14.7, Hct 43.4, MCV 95.0 H, MCH 32.2 H, MCHC 33.9, RDW 14.6, Plt Count 119 L, MPV 10.9 H, Neut % (Auto) 86.5 H, Lymph % (Auto) 5.3 L, [place] % (Auto) 5.4, Eos % (Auto) 2.2, Baso % (Auto) 0.1, Neut # (Auto) 7.9 H, Lymph # (Auto) 0.5 L, [place] # (Auto) 0.5, Eos # (Auto) 0.2, Baso # (Auto) 0.0, PT 12.0, INR 1.10, Sodium 135 L, Potassium 4.4, Chloride 103, Carbon Dioxide 26, Anion Gap 10.4, BUN 14, Creatinine 0.80, Estimated GFR 93, Est GFR ( Amer) 112, Glucose 120 H, Calcium 8.7, Magnesium 1.8, Total Bilirubin 0.9, AST 24, ALT 22, Alkaline Phosphatase 78, Troponin I < 0.01, NT-Pro-B Natriuret Pep 5700 H, Total Protein 6.2 L, Albumin 3.9, Globulin 2.3, Albumin/Globulin Ratio 1.7, Procalcitonin 0.098, HCV Ab ZEESHAN w/Rflx PCR Qn Negative, HIV Ag/Ab Combo Qual Negative 03/28/24 13:39: VBG pH 7.40, VBG pCO2 37.0, VBG pO2 150.3 H, VBG HCO3 22.1 L, VBG Total CO2 23.3, VBG O2 Saturation 98.8 H, VBG Base Excess -2.7 L, VBG Lactic Acid 1.4 03/28/24 13:52: Chlamy pneumoniae PCR Not detected, Adenovirus (PCR) Not detected, B. pertussis DNA (PCR) Not detected, Coronavirus OC43 (PCR) Not detected, Coronavirus HKU1 (PCR) Not detected, Coronavirus 229E (PCR) Not detected, SARS-CoV-2 (PCR) Not detected, Coronavirus NL63 (PCR) Not detected, Human Metapneumovir PCR Not detected, Influenza A (H1) PCR Not detected, Influ A (H1N1/09) PCR Not detected, Influenza A (H3) PCR Detected A, Influenza Type A (PCR) Not detected, Influenza Type B (PCR) Not detected, M. pneumoniae (PCR) Not detected, Parainfluenza 1 (PCR) Not detected, Parainfluenza 2 (PCR) Not detected, Parainfluenza 3 (PCR) Not detected, Parainfluenza 4 (PCR) Not detected, RSV (PCR) Not detected, Entero/Rhino (PCR) Not detected 03/28/24 16:57: Troponin I < 0.01 03/28/24 13:15 03/28/24 13:15 Orders (Tests/Meds): ED MEDICATIONS Generic Name Dose Route Start Last Admin Trade Name Freq PRN Reason Stop Dose Admin Acetaminophen 650 mg 03/28/24 16:23 Acetaminophen 325mg Tab PO 04/27/24 16:22 Q4HP PRN Fever or Mild Pain (1-3) Albuterol/Ipratropium 3 ml 03/28/24 19:00 Ipratropium/Albuterol 3 Ml [facility] 04/27/24 18:59 Q6HP PRN Shortness Of Breath Apixaban 5 mg 03/28/24 21:00 Apixaban 5mg Tablet PO 04/27/24 20:59 BID LA Famotidine 20 mg 03/29/24 09:00 Famotidine 20mg Tablet PO 04/28/24 08:59 DAILY LA Fluticasone/Umeclidinium/Vilanterol 1 puff 03/29/24 09:00 Fluticasone/Umeclidin/Vilanter 100/62.5/25mcg Inhaler IH 04/28/24 08:59 DAILY LA Ceftriaxone Sodium 1 gm/ 50 mls @ 100 mls/hr 03/28/24 16:30 03/28/24 16:53 Sodium Chloride IV 04/07/24 16:29 100 mls/hr Q24H LA Administration Nicotine 14 mg 03/28/24 17:58 Nicotine 14mg/24hrs Patch TD 04/27/24 17:57 DAILYP PRN Nicotine Cravings Non-Formulary Medication 60 mg 03/29/24 09:00 Duloxetine PO 04/28/24 08:59 DAILY LA Non-Formulary Medication 50 mg 03/28/24 21:00 Metoprolol Tartrate PO 04/27/24 20:59 BID [facility] Non-Formulary Medication 100 mg 03/28/24 17:55 Trazodone PO HSP PRN Sleep Oseltamivir Phosphate 75 mg 03/28/24 21:00 Oseltamivir 75mg Capsule PO 04/02/24 09:01 BID LA Pantoprazole Sodium 40 mg 03/28/24 21:00 Pantoprazole 40mg Tablet PO 04/27/24 20:59 HS [facility] Tamsulosin HCl 0.4 mg 03/28/24 21:00 Tamsulosin 0.4mg Capsule PO 04/27/24 20:59 HS [facility] Discontinued Medications Generic Name Dose Route Start Last Admin Trade Name Freq PRN Reason Stop Dose Admin Acetaminophen 1,000 mg 03/28/24 13:36 03/28/24 13:47 Acetaminophen 500mg Tab PO 03/28/24 13:37 1,000 mg ONCE ONE Administration Albuterol/Ipratropium 9 ml 03/28/24 13:36 03/28/24 13:48 Ipratropium/Albuterol 3 Ml Neb IH 03/28/24 13:37 9 ml ONCE ONE Administration Dexamethasone Sodium Phosphate 10 mg 03/28/24 13:36 03/28/24 13:47 Dexamethasone 4mg/Ml 5ml Mdv IV 03/28/24 13:37 10 mg ONCE ONE Administration Furosemide 80 mg 03/28/24 14:28 03/28/24 14:48 Furosemide 40mg/4ml Vial IV 03/28/24 14:29 80 mg ONCE ONE Administration Azithromycin 500 mg/ Sodium 250 mls @ 250 mls/hr 03/28/24 16:22 03/28/24 16:53 Chloride IV 03/28/24 16:23 250 mls/hr ONCE ONE Administration Ibuprofen 800 mg 03/28/24 13:36 03/28/24 13:48 Ibuprofen 400 Mg Tablet PO 03/28/24 13:37 800 mg ONCE ONE Administration Iopamidol 70 ml 03/28/24 14:15 03/28/24 14:17 Iopamidol-370 (76%);100ml Bottle IV 03/28/24 14:16 70 ml ONCE ONE Administration Sodium Chloride 50 ml 03/28/24 14:15 03/28/24 14:17 0.9 % Sodium Chloride 50 Ml Vial IV 03/28/24 14:16 50 ml ONCE ONE Administration Sodium Chloride 10 ml 03/28/24 14:15 03/28/24 14:17 Sodium Chloride 0.9% 10ml Syr (Rad Only) IV 03/28/24 14:16 10 ml ONCE ONE Administration ORDERS Category Date Time Status CT angio chest PE protocol Stat Cat Scan 03/28/24 13:39 Completed BNP [NT Pro Brain Natriuretic Pep.] Stat Lab 03/28/24 13:15 Completed CBC w/Auto Diff [Complete Blood Count Auto Diff] Stat Lab 03/28/24 13:15 Completed CMP [Comprehensive Metabolic Panel] Stat Lab 03/28/24 13:15 Completed Complete Blood Count Auto Diff AMLAB Lab 03/29/24 06:00 Ordered Comprehensive Metabolic Panel AMLAB Lab 03/29/24 06:00 Ordered Full Resp Panel w/COVID ([facility]) Routine Lab 03/28/24 13:52 Completed HIV Combo Stat Lab 03/28/24 13:15 Completed Hepatitis C Ab Qual. W/ RFX Stat Lab 03/28/24 13:15 Completed INR [Prothrombin Time INR] Stat Lab 03/28/24 13:15 Completed Magnesium AMLAB Lab 03/29/24 06:00 Ordered Magnesium Stat Lab 03/28/24 13:15 Completed Procalcitonin Stat Lab 03/28/24 13:15 Completed Trop I [Troponin I] Stat Lab 03/28/24 13:15 Completed Troponin I Q3H Lab 03/28/24 16:57 Completed Troponin I Q3H Lab 03/28/24 19:45 Received Blood Culture Stat Micro 03/28/24 13:49 Received VBG [Venous Blood Gas] Stat RT 03/28/24 13:39 Completed HEART Score History (anamnesis): Slightly suspicious ECG: Non-specific disturbance Age: >65 years Risk factors: Atherosclerosis history Troponin: </= normal limit HEART Score: 5 Medical Decision Narrative: In summary patient is a 83-year-old male who presents to the emergency department for evaluation of dyspnea. Patient is initially hypertensive with a blood pressure 181/107 heart rate 97 and appears to be atrial fibrillation on the bedside monitor breathing 19 times a minute satting at 97% on 2 L by nasal cannula with a temperature of 100.1 upon arrival. Auscultation the breath sounds reveals an expiratory wheezes with diminished breath sounds and Rales in the right lower lung field but no increased work of breathing or accessory muscle use. 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 Patient has no abdominal tenderness normal bowel sounds. . Differential diagnosis includes ACS versus pneumonia versus CHF versus COPD etc. Initial workup will be conducted with hematologic labs twelve- lead EKG VBG blood cultures respiratory swabs urinalysis. Initial interventions include DuoNeb Decadron supplemental O2 continuous pulse oximetry and cardiac monitoring and I considered a sepsis bolus however patient has history of coronary artery disease and CHF thus I have deferred as he is normotensive and not tachycardic for now. Initial workup reviewed by me and his white count is 9.1 but has a neutrophilic shift of 7.9 ANC, VBG shows a pH of 7.4 with a VBG lactic acid 1.4 magnesium is 1.8 initial troponin less than 0.01 NT proBNP is elevated at 5700 procalcitonin is 0.098 respiratory panel is positive for influenza A. My informal interpretation of his CT scan PE protocol shows no evidence of thrombus but does show a right lower lobe developing infiltrate. I gave the patient a dose of 80 of Lasix as he is not on a water pill at baseline. Upon repeat evaluation patient has diuresed approximately 1 L however he is unable to be weaned off of O2,. Given this had interactive discussion with hospital medicine regarding patient presentation [place] findings and patient management and he will be admitted for further evaluation and care. <Nick Wiley MD - Last Filed: 03/28/24 15:49> Vital Signs: 03/28/24 13:33 03/28/24 13:35 03/28/24 13:40 Temperature 101.1 F H Temperature Source Oral Pulse Rate 83 93 H Pulse Rate [Left Radial] 97 H Respiratory Rate 19 Blood Pressure 187/70 H 181/107 H Blood Pressure [Right Arm] 181/107 H Blood Pressure Mean [Right Arm] 131 02 Sat by Pulse Oximetry 97 95 97 Oxygen Delivery Method Room Air Room Air Room Air Oxygen Flow Rate (LPM) 03/28/24 14:01 03/28/24 14:30 03/28/24 15:00 Temperature Temperature Source Pulse Rate 99 H 88 104 H Pulse Rate [Left Radial] Respiratory Rate Blood Pressure 168/69 H 139/60 125/60 Blood Pressure [Right Arm] Blood Pressure Mean [Right Arm] 02 Sat by Pulse Oximetry 98 90 L 90 L Oxygen Delivery Method Nasal Cannula Nasal Cannula Nasal Cannula Oxygen Flow Rate (LPM) 03/28/24 15:45 03/28/24 16:00 03/28/24 16:30 Temperature Temperature Source Pulse Rate 107 H 100 H 107 H Pulse Rate [Left Radial] Respiratory Rate Blood Pressure 142/68 H 118/64 118/72 Blood Pressure [Right Arm] Blood Pressure Mean [Right Arm] 02 Sat by Pulse Oximetry 97 93 L 96 Oxygen Delivery Method Nasal Cannula Nasal Cannula Nasal Cannula Oxygen Flow Rate (LPM) 03/28/24 16:35 03/28/24 17:00 03/28/24 17:03 Temperature 99.7 F H Temperature Source Pulse Rate 107 H Pulse Rate [Left Radial] Respiratory Rate 18 Blood Pressure 118/72 Blood Pressure [Right Arm] Blood Pressure Mean [Right Arm] 02 Sat by Pulse Oximetry 93 L Oxygen Delivery Method Nasal Cannula Nasal Cannula Oxygen Flow Rate (LPM) 2 2 Lab Data Lab Results 03/28/24 13:15: WBC 9.1, RBC 4.57 L, Hgb 14.7, Hct 43.4, MCV 95.0 H, MCH 32.2 H, MCHC 33.9, RDW 14.6, Plt Count 119 L, MPV 10.9 H, Neut % (Auto) 86.5 H, Lymph % (Auto) 5.3 L, [place] % (Auto) 5.4, Eos % (Auto) 2.2, Baso % (Auto) 0.1, Neut # (Auto) 7.9 H, Lymph # (Auto) 0.5 L, [place] # (Auto) 0.5, Eos # (Auto) 0.2, Baso # (Auto) 0.0, PT 12.0, INR 1.10, Sodium 135 L, Potassium 4.4, Chloride 103, Carbon Dioxide 26, Anion Gap 10.4, BUN 14, Creatinine 0.80, Estimated GFR 93, Est GFR ( Amer) 112, Glucose 120 H, Calcium 8.7, Magnesium 1.8, Total Bilirubin 0.9, AST 24, ALT 22, Alkaline Phosphatase 78, Troponin I < 0.01, NT-Pro-B Natriuret Pep 5700 H, Total Protein 6.2 L, Albumin 3.9, Globulin 2.3, Albumin/Globulin Ratio 1.7, Procalcitonin 0.098, HCV Ab ZEESHAN w/Rflx PCR Qn Negative, HIV Ag/Ab Combo Qual Negative 03/28/24 13:39: VBG pH 7.40, VBG pCO2 37.0, VBG pO2 150.3 H, VBG HCO3 22.1 L, VBG Total CO2 23.3, VBG O2 Saturation 98.8 H, VBG Base Excess -2.7 L, VBG Lactic Acid 1.4 03/28/24 13:52: Chlamy pneumoniae PCR Not detected, Adenovirus (PCR) Not detected, B. pertussis DNA (PCR) Not detected, Coronavirus OC43 (PCR) Not detected, Coronavirus HKU1 (PCR) Not detected, Coronavirus 229E (PCR) Not detected, SARS-CoV-2 (PCR) Not detected, Coronavirus NL63 (PCR) Not detected, Human Metapneumovir PCR Not detected, Influenza A (H1) PCR Not detected, Influ A (H1N1/09) PCR Not detected, Influenza A (H3) PCR Detected A, Influenza Type A (PCR) Not detected, Influenza Type B (PCR) Not detected, M. pneumoniae (PCR) Not detected, Parainfluenza 1 (PCR) Not detected, Parainfluenza 2 (PCR) Not detected, Parainfluenza 3 (PCR) Not detected, Parainfluenza 4 (PCR) Not detected, RSV (PCR) Not detected, Entero/Rhino (PCR) Not detected 03/28/24 16:57: Troponin I < 0.01 Orders (Tests/Meds): ED MEDICATIONS Generic Name Dose Route Start Last Admin Trade Name Freq PRN Reason Stop Dose Admin Acetaminophen 650 mg 03/28/24 16:23 Acetaminophen 325mg Tab PO 04/27/24 16:22 Q4HP PRN Fever or Mild Pain (1-3) Albuterol/Ipratropium 3 ml 03/28/24 19:00 Ipratropium/Albuterol 3 Ml Neb 04/27/24 18:59 Q6HP PRN Shortness Of Breath Apixaban 5 mg 03/28/24 21:00 Apixaban 5mg Tablet PO 04/27/24 20:59 BID LA Famotidine 20 mg 03/29/24 09:00 Famotidine 20mg Tablet PO 04/28/24 08:59 DAILY LA Fluticasone/Umeclidinium/Vilanterol 1 puff 03/29/24 09:00 Fluticasone/Umeclidin/Vilanter 100/62.5/25mcg Inhaler IH 04/28/24 08:59 DAILY LA Ceftriaxone Sodium 1 gm/ 50 mls @ 100 mls/hr 03/28/24 16:30 03/28/24 16:53 Sodium Chloride IV 04/07/24 16:29 100 mls/hr Q24H LA Administration Nicotine 14 mg 03/28/24 17:58 Nicotine 14mg/24hrs Patch TD 04/27/24 17:57 DAILYP PRN Nicotine Cravings Non-Formulary Medication 60 mg 03/29/24 09:00 Duloxetine PO 04/28/24 08:59 DAILY LA Non-Formulary Medication 50 mg 03/28/24 21:00 Metoprolol Tartrate PO 04/27/24 20:59 BID LA Non-Formulary Medication 100 mg 03/28/24 17:55 Trazodone PO HSP PRN Sleep Oseltamivir Phosphate 75 mg 03/28/24 21:00 Oseltamivir 75mg Capsule PO 04/02/24 09:01 BID LA Pantoprazole Sodium 40 mg 03/28/24 21:00 Pantoprazole 40mg Tablet PO 04/27/24 20:59 HS LA Tamsulosin HCl 0.4 mg 03/28/24 21:00 Tamsulosin 0.4mg Capsule PO 04/27/24 20:59 HS [facility] Discontinued Medications Generic Name Dose Route Start Last Admin Trade Name Freq PRN Reason Stop Dose Admin Acetaminophen 1,000 mg 03/28/24 13:36 03/28/24 13:47 Acetaminophen 500mg Tab PO 03/28/24 13:37 1,000 mg ONCE ONE Administration Albuterol/Ipratropium 9 ml 03/28/24 13:36 03/28/24 13:48 Ipratropium/Albuterol 3 Ml Neb IH 03/28/24 13:37 9 ml ONCE ONE Administration Dexamethasone Sodium Phosphate 10 mg 03/28/24 13:36 03/28/24 13:47 Dexamethasone 4mg/Ml 5ml Mdv IV 03/28/24 13:37 10 mg ONCE ONE Administration Furosemide 80 mg 03/28/24 14:28 03/28/24 14:48 Furosemide 40mg/4ml Vial IV 03/28/24 14:29 80 mg ONCE ONE Administration Azithromycin 500 mg/ Sodium 250 mls @ 250 mls/hr 03/28/24 16:22 03/28/24 16:53 Chloride IV 03/28/24 16:23 250 mls/hr ONCE ONE Administration Ibuprofen 800 mg 03/28/24 13:36 03/28/24 13:48 Ibuprofen 400 Mg Tablet PO 03/28/24 13:37 800 mg ONCE ONE Administration Iopamidol 70 ml 03/28/24 14:15 03/28/24 14:17 Iopamidol-370 (76%);100ml Bottle IV 03/28/24 14:16 70 ml ONCE ONE Administration Sodium Chloride 50 ml 03/28/24 14:15 03/28/24 14:17 0.9 % Sodium Chloride 50 Ml Vial IV 03/28/24 14:16 50 ml ONCE ONE Administration Sodium Chloride 10 ml 03/28/24 14:15 03/28/24 14:17 Sodium Chloride 0.9% 10ml Syr (Rad Only) IV 03/28/24 14:16 10 ml ONCE ONE Administration ORDERS Category Date Time Status CT angio chest PE protocol Stat Cat Scan 03/28/24 13:39 Completed BNP [NT Pro Brain Natriuretic Pep.] Stat Lab 03/28/24 13:15 Completed CBC w/Auto Diff [Complete Blood Count Auto Diff] Stat Lab 03/28/24 13:15 Completed CMP [Comprehensive Metabolic Panel] Stat Lab 03/28/24 13:15 Completed Complete Blood Count Auto Diff AMLAB Lab 03/29/24 06:00 Ordered Comprehensive Metabolic Panel AMLAB Lab 03/29/24 06:00 Ordered Full Resp Panel w/COVID ([facility]) Routine Lab 03/28/24 13:52 Completed HIV Combo Stat Lab 03/28/24 13:15 Completed Hepatitis C Ab Qual. W/ RFX Stat Lab 03/28/24 13:15 Completed INR [Prothrombin Time INR] Stat Lab 03/28/24 13:15 Completed Magnesium AMLAB Lab 03/29/24 06:00 Ordered Magnesium Stat Lab 03/28/24 13:15 Completed Procalcitonin Stat Lab 03/28/24 13:15 Completed Trop I [Troponin I] Stat Lab 03/28/24 13:15 Completed Troponin I Q3H Lab 03/28/24 16:57 Completed Troponin I Q3H Lab 03/28/24 19:45 Received Blood Culture Stat Micro 03/28/24 13:49 Received VBG [Venous Blood Gas] Stat RT 03/28/24 13:39 Completed ECG Data Tracing #1: I reviewed this ECG and interpreted as documented below: Independently interpreted by myself demonstrate atrial fibrillation that is rate controlled, with significant artifact in the anterior precordial leads, but within the limits of this examination, no acute ischemic ST changes. Not acutely actionable. Critical Care <COOPER Byrd - Last Filed: 03/28/24 20:44> Critical Care Time Critical Care Time: Yes Attestation: On 03/28/24, the high probability of a clinically significant, sudden or life threatening deterioration of the following system(s) required my full and direct attention, intervention and personal management. The time I documented below is in addition to time spent performing reported procedures but includes the following listed in this critical care notation. Total Time Total Critical Care Time: 35
--- NOTE | 2024-03-28 13:39 | CT_ITS ---
FINAL REPORT TECHNIQUE: The patient was injected with IV contrast. Axial images were obtained through the chest in a PE protocol. 3-D reconstruction images were also performed. Individualized dose reduction techniques using automated exposure control or adjustment of the MA and/or KV according to patient's size were employed. CLINICAL HISTORY: Hypoxemic respiratory failure COMPARISON: None FINDINGS: Mediastinal vasculature is adequately opacified. No pulmonary artery filling defects are identified to suggest PE. There is suboptimal opacification of the subsegmental pulmonary artery branch vessels. There is no aortic dissection. There is no axillary adenopathy. There is no hilar or mediastinal adenopathy. The heart size is normal. Mild patchy airspace opacity in the right base may be related to minimal pneumonia. There is no pericardial or pleural effusion. Limited images of the upper abdomen demonstrate atrophy of the posterior left kidney. IMPRESSION: No pulmonary embolus or dissection. Minimal infiltrate right base. Reviewed, Interpreted and Dictated by Poncho Hoyt MD Transcribed by Sandra Smith Authenticated and [facility]
[2024-03-28] MEDS: ACETAMINOPHEN 500MG TAB 1000 MG PO (13:47)
[2024-03-28] MEDS: DEXAMETHASONE 4MG/ML 5ML MDV 10 MG IV (13:47)
[2024-03-28 13:48] LABS: Albumin Level 3.9 g/dl (3.5-5.0); Chloride 103 mmol/L (98-107); Potassium 4.4 mmoL/L (3.5-5.1); Sodium 135 mmol/L (136-145)
[2024-03-28] MEDS: IPRATROPIUM/ALBUTEROL 3 ML NEB 9 ML IH (13:48)
[2024-03-28] MEDS: IBUPROFEN 400 MG TABLET 800 MG PO (13:48)
[2024-03-28 13:49] LABS: Lactate Venous 1.4 mmol/L (0.4-2.0); VBG Base Excess -2.7 mmol/L (-2.4-2.3); VBG HCO3 22.1 mmol/L (23-30); VBG Oxygen Saturation 98.8 % (50-70); VBG PO2 150.3 mmol/L (28-40); VBG Total CO2 23.3 mmol/L (23-27)
[2024-03-28 13:51] LABS: Alanine Aminotransferase 22 U/L (12-78); Albumin/Globulin Ratio 1.7 (1.1-1.8); Alkaline Phosphatase 78 U/L (38-126); Anion Gap 10.4 mEq/L (5-15); Aspartate Amino Transferase 24 U/L (17-59); Basophils % 0.1 % (0.1-2.0); Bilirubin,Total 0.9 mg/dl (0.2-1.3); Blood Urea Nitrogen 14 mg/dl (9-20); Calcium 8.7 mg/dl (8.4-10.2); Carbon Dioxide 26 mmol/L (22.0-30.0); Eosinophils # 0.2 K/mm3 (0.0-0.4); Eosinophils % 2.2 % (0.1-12.0); Estimated Glomerular Filt Rate 93 ml/min (>60); GFR (African American) 112 ML/MIN (>60); Globulin 2.3 g/dL (1.3-3.2); Glucose 120 mg/dl (74-100); Hematocrit 43.4 % (42.0-52.0); Hemoglobin 14.7 g/dL (14.1-18.0); Lymphocytes # 0.5 K/mm3 (0.7-4.5); Lymphocytes % 5.3 % (10-50); Magnesium 1.8 mg/dl (1.6-2.3); Mean Corpuscular HGB Conc 33.9 g/dL (31.8-35.4); Mean Corpuscular Hemoglobin 32.2 pg (27.0-31.2); Mean Platelet Volume 10.9 fl (7.4-10.4); Monocytes # 0.5 K/mm3 (0.1-1.0); Monocytes % 5.4 % (1.7-9.3); Neutrophils # 7.9 K/mm3 (1.8-7.8); Neutrophils % 86.5 % (37.0-80.0); Platelet Count 119 K/mm3 (142-424); Red Blood Count 4.57 M/mm3 (4.60-6.20); Red Cell Distribution Width 14.6 % (11.5-17.5); Total Protein,Serum 6.2 g/dl (6.3-8.2); White Blood Count 9.1 K/mm3 (4.8-10.8)
--- NOTE | 2024-03-28 13:54 | PC.NURSE ---
FULL RESPIRATORY SWAB SENT TO LAB AT THIS TIME
--- NOTE | 2024-03-28 13:54 | PC.NURSE ---
BLUE BAND BRACELET PLACED ON PT AFTER I OBTAINED BOTH SET OF BLOOD CULTURES
[2024-03-28 13:58] LABS: Adenovirus,PCR Not Detected (NotDetected); Bordetella Pertussis Not Detected (NotDetected); Chlamydophila Pneumoniae, PCR Not Detected (NotDetected); Coronavirus 19, PCR Not Detected (NotDetected); Coronavirus 229E Not Detected (NotDetected); Coronavirus NL63 Not Detected (NotDetected); Coronavirus OC43 Not Detected (NotDetected); Coronovirus HKU1,PCR Not Detected (NotDetected); Human Metapneumovirus Not Detected (NotDetected); Influenza A, PCR Not Detected (NotDetected); Influenza AH1, 2009 Not Detected (NotDetected); Influenza AH1, PCR Not Detected (NotDetected); Influenza B, PCR Not Detected (NotDetected); Mycoplasma Pneumoniae, PCR Not Detected (NotDetected); Parainfluenza 1, PCR Not Detected (NotDetected); Parainfluenza 2, PCR Not Detected (NotDetected); Parainfluenza 3, PCR Not Detected (NotDetected); Parainfluenza 4, PCR Not Detected (NotDetected); Respiratory Syncytial Virus Not Detected (NotDetected); Rhinovirus/Enterovirus Not Detected (NotDetected)
[2024-03-28 14:01] LABS: NT Pro Brain Natriuretic Pep. 5700 pg/mL (0-450)
[2024-03-28 14:04] LABS: Troponin I < 0.01 ng/ml (0.00-0.034)
[2024-03-28] MEDS: IOPAMIDOL-370 (76%);100ML BOTTLE 70 ML IV (14:17)
[2024-03-28] MEDS: 0.9 % SODIUM CHLORIDE 50 ML VIAL IV (14:17)
[2024-03-28] MEDS: SODIUM CHLORIDE 0.9% 10ML SYR (RAD ONLY) 10 ML IV (14:17)
[2024-03-28 14:24] LABS: Procalcitonin 0.098 ng/mL (0.0-2.0)
[2024-03-28] MEDS: FUROSEMIDE 40MG/4ML VIAL 80 MG IV (14:48)
[2024-03-28 14:51] LABS: HIV Combo NEGATIVE (Negative)
[2024-03-28 14:58] LABS: Hepatitis C Ab Qual. W/ RFX NEGATIVE (Negative)
--- NOTE | 2024-03-28 15:03 | PC.NURSE ---
Pt had wet himself. With help from daughter removed wet sheets, put clean sheets, bro under patient, also put a diaper on pt.
--- NOTE | 2024-03-28 15:38 | PC.NURSE ---
PT ARRIVED BACK TO ROOM FROM ULTRASOUND
[2024-03-28 16:20] LABS: Influenza AH3,PCR Detected (NotDetected)
--- NOTE | 2024-03-28 16:24 | PC.NURSE ---
HS contacted about admission
--- NOTE | 2024-03-28 16:28 | EXP.HP ---
History of Present Illness *Admission Date: 03/28/24 *Reason for visit:: short of breath *History of present illness: Mr. Rodríguez is a 83-year-old male with history of bypass, CAD, hypertension, hyperlipidemia, heart failure with reduced ejection fraction, AAA repair, right AKA. He lives with his daughter and son-in-law. All 3 of them have been sick since Monday. He presented at his daughter's request due to concern for dyspnea and feeling poorly. At home they checked his oxygen saturation and it was found to be low. Daughter states it was in the 80s. Came to the ER for further evaluation. On workup, patient found to be hypoxic. 83% on room air. Initiated on 2 L oxygen. BNP also elevated at 5700. Chest imaging concerning for faint patchy airspace disease in right lung on CT. Respiratory panel positive for flu A. Given his new oxygen requirement and flu findings along with age and comorbidity, medicine consulted for admission and further management. Arrival to the floor, he is accompanied by his daughter. She helps supplement history. Denies any chest pain. Stable on 2 L oxygen. Afebrile. No nausea or vomiting, alert and oriented x 4 PFSH [facility] Disclaimer: The information contained in this section may have been updated after the patient was seen, as this information can be updated by other users. Medical History Stenosis of carotid artery Left carotid bruit BPH without obstruction/lower urinary tract symptoms BPH (benign prostatic hyperplasia) CALEB (renal artery stenosis) HFrEF (heart failure with reduced ejection fraction) CHF (congestive heart failure) Dyspnea HLD (hyperlipidemia) HTN (hypertension) CAD (coronary artery disease) Abdominal aortic aneurysm CKD (chronic kidney disease) Atrial fibrillation Family History Other No significant family history Social History Smoking Status: Current some day smoker tobacco type: cigarettes second hand exposure: No alcohol intake: never substance use type: denies use current occupational status: retired Travel in the last 8 weeks: Inside the [place] household members: spouse housing: house caffeine: Yes Have you lived/traveled outside [place] in past 30 days?: No Contact w/someone who lives/traveled outside [place] past 30 days?: No Exposure to someone with infectious disease in past 14 days?: No Do you have a fever (greater than 100.4 F or 38 C)?: No Have you tested positive for COVID-19: No Exposed to someone with COVID-19 in past 14 days?: No Do you have a sore throat?: No Do you have a cough?: No Do you have any weakness?: Yes Are you experiencing any nausea/vomitting?: No Do you have any diarrhea?: No Are you experiencing any unusual bleeding?: No Do you have any muscle aches/pain?: No Do you have any abdominal pain?: No Are you experiencing loss of taste or smell?: No Other Medical History Have you received the Flu Vaccine for this season: No Have you received the Pneumonia Vaccine: No Review of Systems Review of Systems Review of systems (narrative): 14 point review of systems performed, pertinent positives and negatives as per [facility] Meds Home Medications and Allergies Home Medications ?Medication ?Instructions ?Recorded ?Confirmed ?Type ezetimibe 10 mg-simvastatin 40 mg 1 tab PO HS Cholesterol 07/11/17 03/28/24 History tablet lansoprazole 30 mg capsule,delayed 30 mg PO DAILY Acid Reflux 09/27/22 03/28/24 History release levocetirizine 5 mg tablet 5 mg PO DAILY Allergy Symptoms 09/27/22 03/28/24 History trazodone 100 mg tablet 100 mg PO HSP PRN Sleep 09/27/22 03/28/24 History fluticasone fur. 100 mcg-umeclid 1 inh inhalation DAILY 01/29/23 03/28/24 History 62.5 mcg-vilant 25 mcg inhalat.powder (Trelegy Ellipta) metoprolol tartrate 75 mg tablet 50 mg PO BID 01/29/23 03/28/24 History apixaban 5 mg tablet (Eliquis) 5 mg PO BID 03/28/24 03/28/24 History duloxetine 60 mg capsule,delayed 60 mg PO DAILY 03/28/24 03/28/24 History release famotidine 20 mg tablet 20 mg PO DAILY 03/28/24 03/28/24 History fluticasone propionate 50 1 spray intranasal DAILY 03/28/24 03/28/24 History mcg/actuation nasal spray,suspension potassium chloride 20 mEq 20 meq PO DAILY 03/28/24 03/28/24 History tablet,extended release(part/cryst) tamsulosin 0.4 mg capsule 0.4 mg PO HS 03/28/24 03/28/24 History New Prescriptions to Start Prescriptions: Allergies Allergy/AdvReac Type Severity Reaction Status Date / Time No Known Allergies Allergy Verified 01/29/23 09:39 Exam Data for Last 24 hours Vital signs and Labs for Last 24 Hours: Temp Pulse Resp BP Pulse Ox O2 Del Method 101.1 F H 100 H 19 118/64 93 L Nasal Cannula 03/28/24 13:33 03/28/24 16:00 03/28/24 13:33 03/28/24 16:00 03/28/24 16:00 03/28/24 16:00 Laboratory Results - last 24 hr 03/28/24 13:15: WBC 9.1, RBC 4.57 L, Hgb 14.7, Hct 43.4, MCV 95.0 H, MCH 32.2 H, MCHC 33.9, RDW 14.6, Plt Count 119 L, MPV 10.9 H, Neut % (Auto) 86.5 H, Lymph % (Auto) 5.3 L, Mcminn % (Auto) 5.4, Eos % (Auto) 2.2, Baso % (Auto) 0.1, Neut # (Auto) 7.9 H, Lymph # (Auto) 0.5 L, [place] # (Auto) 0.5, Eos # (Auto) 0.2, Baso # (Auto) 0.0, PT 12.0, INR 1.10, Sodium 135 L, Potassium 4.4, Chloride 103, Carbon Dioxide 26, Anion Gap 10.4, BUN 14, Creatinine 0.80, Estimated GFR 93, Est GFR ( Amer) 112, Glucose 120 H, Calcium 8.7, Magnesium 1.8, Total Bilirubin 0.9, AST 24, ALT 22, Alkaline Phosphatase 78, Troponin I < 0.01, NT-Pro-B Natriuret Pep 5700 H, Total Protein 6.2 L, Albumin 3.9, Globulin 2.3, Albumin/Globulin Ratio 1.7, Procalcitonin 0.098, HCV Ab ZEESHAN w/Rflx PCR Qn Negative, HIV Ag/Ab Combo Qual Negative 03/28/24 13:39: VBG pH 7.40, VBG pCO2 37.0, VBG pO2 150.3 H, VBG HCO3 22.1 L, VBG Total CO2 23.3, VBG O2 Saturation 98.8 H, VBG Base Excess -2.7 L, VBG Lactic Acid 1.4 03/28/24 13:52: Chlamy pneumoniae PCR Not detected, Adenovirus (PCR) Not detected, B. pertussis DNA (PCR) Not detected, Coronavirus OC43 (PCR) Not detected, Coronavirus HKU1 (PCR) Not detected, Coronavirus 229E (PCR) Not detected, SARS-CoV-2 (PCR) Not detected, Coronavirus NL63 (PCR) Not detected, Human Metapneumovir PCR Not detected, Influenza A (H1) PCR Not detected, Influ A (H1N1/09) PCR Not detected, Influenza A (H3) PCR Detected A, Influenza Type A (PCR) Not detected, Influenza Type B (PCR) Not detected, M. pneumoniae (PCR) Not detected, Parainfluenza 1 (PCR) Not detected, Parainfluenza 2 (PCR) Not detected, Parainfluenza 3 (PCR) Not detected, Parainfluenza 4 (PCR) Not detected, RSV (PCR) Not detected, Entero/Rhino (PCR) Not detected I & O for Last 24 hours: Intake & Output 03/25/24 03/26/24 03/27/24 03/28/24 23:59 23:59 23:59 23:59 Weight 63.503 kg Constitutional Constitutional: no acute distress, thin and chronically ill appearing *Routine HEENT Exam Head: Present normocephalic Eye: Present EOMI and PERRL ENT: Present mucous membranes moist *Routine Neck Exam Neck: Present supple; Absent lymphadenopathy *Routine Respiratory Exam Respiratory: Present prolonged expiratory phase and crackles; Absent respiratory distress or wheezes *Routine Cardiovascular Exam Cardiovascular: Present RRR *Routine Abdominal Exam Abdominal: Present soft and normoactive bowel sounds; Absent tenderness *Routine Rectal Exam Rectal:: deferred *Routine Genitalia Exam Genitalia:: deferred *Routine Extremities Exam Extremities: Absent cyanosis, clubbing or edema Comments: Right AKA *Routine Skin Exam Skin: Present intact and warm; Absent cyanosis or rash *Routine Neurological Exam Neurological: Present alert, oriented X3 and moving all extremities; Absent altered mental status Routine Psychiatric Exam Psychiatric: Present normal affect Assessment and Plan *Assessment and plan (1) Right lower lobe pneumonia: Status: Acute Qualifiers: Pneumonia type: due to unspecified organism Qualified Code(s): J18.9 - Pneumonia, unspecified organism Category: Medical Code(s): J18.9 - Pneumonia, unspecified organism (2) Influenza A: Status: Acute Category: Medical Code(s): J10.1 - Influenza due to other identified influenza virus with other respiratory manifestations (3) Acute hypoxemic respiratory failure: Status: Acute Category: Medical Code(s): J96.01 - Acute respiratory failure with hypoxia (4) HTN (hypertension): Status: Chronic Qualifiers: Hypertension type: essential hypertension Qualified Code(s): I10 - Essential (primary) hypertension Category: Medical Code(s): I10 - Essential (primary) hypertension (5) CAD (coronary artery disease): Status: Chronic Qualifiers: Associated angina: without angina Coronary Disease-Associated Artery/Lesion type: [place] artery [place] vs. transplanted heart: [place] heart Qualified Code(s): I25.10 - Atherosclerotic heart disease of [place] coronary artery without angina pectoris Category: Medical Code(s): I25.10 - Atherosclerotic heart disease of [place] coronary artery without angina pectoris (6) HLD (hyperlipidemia): Status: Chronic Qualifiers: Hyperlipidemia type: mixed hyperlipidemia Qualified Code(s): E78.2 - Mixed hyperlipidemia Category: Medical Code(s): E78.5 - Hyperlipidemia, unspecified (7) HFrEF (heart failure with reduced ejection fraction): Status: Acute Category: Medical Code(s): I50.20 - Unspecified systolic (congestive) heart failure (8) BPH without obstruction/lower urinary tract symptoms: Status: Acute Category: Medical Code(s): N40.0 - Benign prostatic hyperplasia without lower urinary tract symptoms Plan 83-year-old male who presents with fever, shortness of breath, found to be hypoxic and positive for flu with pneumonia on chest imaging. Discussed case with ER physician, request admission for further management of flu, respiratory failure, pneumonia. I agreed to admit for further treatment. Started on Tamiflu in the ER. Diuresed once with Lasix due to elevated BNP. PSI port score of 91, class IV risk. Necessitating inpatient management. Problems addressed as follows: Influenza A pneumonia Acute hypoxemic respiratory failure - Per my review of chest CT, has faint airspace disease in right lower lung. Found to be positive for influenza A on comprehensive respiratory panel - Received azithromycin 500 mg and ceftriaxone 1 g once in the ER. No indication to continue. Dexamethasone 10 mg IV once in the ER. Will hold on further steroids. - DuoNebs every 6 hours scheduled - Tamiflu 75 mg twice daily - Supplemental oxygen as needed for goal sats greater 90%. Currently on 2 L - Continue Trelegy 100 inhaler -White count 9.1, hemoglobin 14.7. Repeat CBC, CMP, magnesium ordered for the morning. BUN 14, creatinine 0.8. 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 Consistent with combined heart failure. -Diuresed once with Lasix IV in the ER. BNP elevated at 5700. Component of CHF exacerbation in conjunction with flu pneumonia Continue Cymbalta 60 mg daily for mood Continue famotidine 20 mg daily for GERD Continue pantoprazole 40 mg nightly as formulary conversion for GERD BPH: Continue tamsulosin 0.4 mg nightly Sleep disorder: Continue trazodone 100 mg nightly as needed Tobacco use disorder: Nicotine patch as needed 14 mg Full code Cardiac diet Continue home Eliquis 5 mg twice daily
[2024-03-28] MEDS: CEFTRIAXONE 1 GM 1 GM in 0.9 % SODIUM CHLORIDE 50 ML IV (16:53)
[2024-03-28] MEDS: AZITHROMYCIN 500 MG in 0.9 % SODIUM CHLORIDE 250 ML 250 MG IV (16:53)
[2024-03-28 17:30] LABS: Troponin I < 0.01 ng/ml (0.00-0.034)
--- NOTE | 2024-03-28 17:50 | PC.NURSE ---
PT RESTING SUPINE IN BED WITH DAUGHTER AT BEDSIDE. REQUIRING 2LNC TO MAINTAIN O2 >90%. PT HAS AMPUTATION OF R LEG. PUREWICK PLACED DUE TO PT LACK OF MOBILITY. TOLERATING CARDIAC DIET WELL. DROPLET PRECAUTIONS FOR FLU A. PRODUCTIVE COUGH. NO COMPLAINTS OF PAIN. NO NEEDS AT THIS TIME.
[2024-03-28 20:37] LABS: Troponin I < 0.01 ng/ml (0.00-0.034)
[2024-03-28] MEDS: APIXABAN 5MG TABLET 5 MG PO (21:18)
[2024-03-28] MEDS: PANTOPRAZOLE 40MG TABLET 40 MG PO (21:18)
[2024-03-28] MEDS: TAMSULOSIN 0.4MG CAPSULE 0.4 MG PO (21:18)
[2024-03-28] MEDS: OSELTAMIVIR 75MG CAPSULE 75 MG PO (21:18)
[2024-03-28] MEDS: METOPROLOL TARTRATE 75 MG 50 EACH PO (21:25)
[2024-03-29] VITALS: BP 161/59; PULSE 87; RESP 17; TEMP 36.5
--- NOTE | 2024-03-29 03:58 | PC.NURSE ---
Pt A&OX4 and has tolerated 2L nasal cannula this shift. Lung sounds wheezy and bowel sounds active. On droplet precautions for flu-A. Purewick has remained in place and is draining well. Currently asleep with call light within reach.
[2024-03-29 04:00] VITALS: BMI 23.5
[2024-03-29 06:25] VITALS: PULSE 65; PULSE 72; O2SAT 95
[2024-03-29 06:25] LABS: Basophils % 0.1 % (0.1-2.0); Hematocrit 45.3 % (42.0-52.0); Hemoglobin 15.1 g/dL (14.1-18.0); Lymphocytes # 0.6 K/mm3 (0.7-4.5); Lymphocytes % 5.7 % (10-50); Mean Corpuscular HGB Conc 33.3 g/dL (31.8-35.4); Mean Corpuscular Hemoglobin 31.7 pg (27.0-31.2); Mean Platelet Volume 10.5 fl (7.4-10.4); Monocytes # 0.5 K/mm3 (0.1-1.0); Monocytes % 4.9 % (1.7-9.3); Neutrophils # 9.1 K/mm3 (1.8-7.8); Neutrophils % 88.9 % (37.0-80.0); Platelet Count 117 K/mm3 (142-424); Red Blood Count 4.77 M/mm3 (4.60-6.20); Red Cell Distribution Width 14.6 % (11.5-17.5); White Blood Count 10.3 K/mm3 (4.8-10.8)
[2024-03-29] MEDS: IPRATROPIUM/ALBUTEROL 3 ML NEB IH (06:25)
[2024-03-29] MEDS: FLUTICASONE/UMECLIDIN/VILANTER 100/62.5/25MCG INHALER 1 PUFF IH (06:25)
[2024-03-29 06:47] LABS: Albumin Level 3.8 g/dl (3.5-5.0); Chloride 104 mmol/L (98-107); Potassium 4.1 mmoL/L (3.5-5.1); Sodium 138 mmol/L (136-145)
[2024-03-29 06:49] LABS: Blood Urea Nitrogen 21 mg/dl (9-20); Creatinine Clearance Estimated 52 mL/min (50-200); Estimated Glomerular Filt Rate 81 ml/min (>60); GFR (African American) 98 ML/MIN (>60)
[2024-03-29 06:50] LABS: Alanine Aminotransferase 21 U/L (12-78); Albumin/Globulin Ratio 1.7 (1.1-1.8); Alkaline Phosphatase 70 U/L (38-126); Anion Gap 11.1 mEq/L (5-15); Aspartate Amino Transferase 22 U/L (17-59); Bilirubin,Total 0.6 mg/dl (0.2-1.3); Calcium 8.9 mg/dl (8.4-10.2); Carbon Dioxide 27 mmol/L (22.0-30.0); Globulin 2.3 g/dL (1.3-3.2); Glucose 123 mg/dl (74-100); Magnesium 2.1 mg/dl (1.6-2.3); Total Protein,Serum 6.1 g/dl (6.3-8.2)
[2024-03-29 08:00] VITALS: BP 140/66; PULSE 82; RESP 18; TEMP 36.5; O2SAT 94
[2024-03-29] MEDS: OSELTAMIVIR 75MG CAPSULE 75 MG PO (09:08)
[2024-03-29] MEDS: FAMOTIDINE 20 MG PO (09:08)
[2024-03-29] MEDS: PAT OWN MED ***METOPROLOL TARTRATE 50MG 50 MG PO (09:08)
[2024-03-29] MEDS: PAT OWN MED ***APIXABAN 5MG 5 MG PO (09:08)
[2024-03-29] MEDS: PAT OWN MED ***DULOXETINE 60 MG 1 EACH PO (09:08)
--- NOTE | 2024-03-29 10:07 | HMH.PHAINT1 ---
Pharmacy Intervention Comments: MED LIST COMPARED TO FILL HX AND MEDICINE BOTTLES.
--- NOTE | 2024-03-29 13:07 | EXP.DC.SUM ---
General Admission date:: 03/28/24 Discharge date: 03/29/24 HPI HPI HPI: Mr. Rodríguez is a 83-year-old male with history of bypass, CAD, hypertension, hyperlipidemia, heart failure with reduced ejection fraction, AAA repair, right AKA. He lives with his daughter and son-in-law. All 3 of them have been sick since Monday. He presented at his daughter's request due to concern for dyspnea and feeling poorly. At home they checked his oxygen saturation and it was found to be low. Daughter states it was in the 80s. Came to the ER for further evaluation. On workup, patient found to be hypoxic. 83% on room air. Initiated on 2 L oxygen. BNP also elevated at 5700. Chest imaging concerning for faint patchy airspace disease in right lung on CT. Respiratory panel positive for flu A. Given his new oxygen requirement and flu findings along with age and comorbidity, medicine consulted for admission and further management. Arrival to the floor, he is accompanied by his daughter. She helps supplement history. Denies any chest pain. Stable on 2 L oxygen. Afebrile. No nausea or vomiting, alert and oriented x 4 Hospital Course Hospital Course Hospital Course: 83-year-old male who presents with fever, shortness of breath, found to be hypoxic and positive for flu with pneumonia on chest imaging. Discussed case with ER physician, request admission for further management of flu, respiratory failure, pneumonia. I agreed to admit for further treatment. Started on Tamiflu in the ER. Diuresed once with Lasix due to elevated BNP. PSI port score of 91, class IV risk. Necessitating inpatient management. Showed significant improvement. Weaned to room air by morning. Room air sat of 94% on morning of discharge. Stable to discharge home with family. Problems addressed as follows: Influenza A pneumonia Acute hypoxemic respiratory failure - Per my review of chest CT, has faint airspace disease in right lower lung. Found to be positive for influenza A on comprehensive respiratory panel. Received azithromycin 500 mg and ceftriaxone 1 g once in the ER. No indication to continue. Dexamethasone 10 mg IV once in the ER. Will hold on further steroids. Initiated on Tamiflu, will continue 75 mg twice daily to complete 5 days of therapy. Inhalers ministered admission. Continue Trelegy 100 inhaler daily. Supplemental oxygen initially required however weaned to room air with stable room air sats in the low 90s. White count remained normal. 10.3 on morning of discharge. 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 Echo performed in 2020 with ejection fraction 45%, RVSP elevated at 38 mmHg. Consistent with combined heart failure. Diuresed once with Lasix IV in the ER. BNP elevated at 5700. Component of CHF exacerbation in conjunction with flu pneumonia. Appears euvolemic on morning of discharge. Consider reevaluation when patient is well from the flu. May need further intermittent or daily diuretic regimen Continue Cymbalta 60 mg daily for mood Continue famotidine 20 mg daily for GERD Continue pantoprazole 40 mg nightly as formulary conversion for GERD BPH: Continue tamsulosin 0.4 mg nightly Sleep disorder: Continue trazodone 100 mg nightly as needed Exam Data for Last 24 hours Vital signs and Labs for Last 24 Hours: Temp Pulse Resp BP Pulse Ox O2 Del Method O2 Flow Rate 97.7 F 82 18 140/66 94 L Nasal Cannula 2 03/29/24 08:00 03/29/24 08:00 03/29/24 08:00 03/29/24 08:00 03/29/24 08:00 03/29/24 08:00 03/29/24 08:00 Laboratory Results - last 24 hr 03/28/24 13:15: WBC 9.1, RBC 4.57 L, Hgb 14.7, Hct 43.4, MCV 95.0 H, MCH 32.2 H, MCHC 33.9, RDW 14.6, Plt Count 119 L, MPV 10.9 H, Neut % (Auto) 86.5 H, Lymph % (Auto) 5.3 L, [place] % (Auto) 5.4, Eos % (Auto) 2.2, Baso % (Auto) 0.1, Neut # (Auto) 7.9 H, Lymph # (Auto) 0.5 L, [place] # (Auto) 0.5, Eos # (Auto) 0.2, Baso # (Auto) 0.0, PT 12.0, INR 1.10, Sodium 135 L, Potassium 4.4, Chloride 103, Carbon Dioxide 26, Anion Gap 10.4, BUN 14, Creatinine 0.80, Estimated GFR 93, Est GFR ( Amer) 112, Glucose 120 H, Calcium 8.7, Magnesium 1.8, Total Bilirubin 0.9, AST 24, ALT 22, Alkaline Phosphatase 78, Troponin I < 0.01, NT-Pro-B Natriuret Pep 5700 H, Total Protein 6.2 L, Albumin 3.9, Globulin 2.3, Albumin/Globulin Ratio 1.7, Procalcitonin 0.098, HCV Ab ZEESHAN w/Rflx PCR Qn Negative, HIV Ag/Ab Combo Qual Negative 03/28/24 13:39: VBG pH 7.40, VBG pCO2 37.0, VBG pO2 150.3 H, VBG HCO3 22.1 L, VBG Total CO2 23.3, VBG O2 Saturation 98.8 H, VBG Base Excess -2.7 L, VBG Lactic Acid 1.4 03/28/24 13:52: Chlamy pneumoniae PCR Not detected, Adenovirus (PCR) Not detected, B. pertussis DNA (PCR) Not detected, Coronavirus OC43 (PCR) Not detected, Coronavirus HKU1 (PCR) Not detected, Coronavirus 229E (PCR) Not detected, SARS-CoV-2 (PCR) Not detected, Coronavirus NL63 (PCR) Not detected, Human Metapneumovir PCR Not detected, Influenza A (H1) PCR Not detected, Influ A (H1N1/09) PCR Not detected, Influenza A (H3) PCR Detected A, Influenza Type A (PCR) Not detected, Influenza Type B (PCR) Not detected, M. pneumoniae (PCR) Not detected, Parainfluenza 1 (PCR) Not detected, Parainfluenza 2 (PCR) Not detected, Parainfluenza 3 (PCR) Not detected, Parainfluenza 4 (PCR) Not detected, RSV (PCR) Not detected, Entero/Rhino (PCR) Not detected 03/28/24 16:57: Troponin I < 0.01 03/28/24 19:45: Troponin I < 0.01 03/29/24 06:05: WBC 10.3, RBC 4.77, Hgb 15.1, Hct 45.3, MCV 95.0 H, MCH 31.7 H, MCHC 33.3, RDW 14.6, Plt Count 117 L, MPV 10.5 H, Neut % (Auto) 88.9 H, Lymph % (Auto) 5.7 L, [place] % (Auto) 4.9, Eos % (Auto) 0.0 L, Baso % (Auto) 0.1, Neut # (Auto) 9.1 H, Lymph # (Auto) 0.6 L, [place] # (Auto) 0.5, Eos # (Auto) 0.0, Baso # (Auto) 0.0, Sodium 138, Potassium 4.1, Chloride 104, Carbon Dioxide 27, Anion Gap 11.1, BUN 21 H D, Creatinine 0.90, Estimated Creat Clear 52, Estimated GFR 81, Est GFR ( Amer) 98, Glucose 123 H, Calcium 8.9, Magnesium 2.1 D, Total Bilirubin 0.6, AST 22, ALT 21, Alkaline Phosphatase 70, Total Protein 6.1 L, Albumin 3.8, Globulin 2.3, Albumin/Globulin Ratio 1.7 I & O for Last 24 hours: Intake & Output 03/26/24 03/27/24 03/28/24 03/29/24 23:59 23:59 23:59 23:59 Intake Total 270 / 470 340 / 340 Output Total 775 / 775 Balance 270 / 220 -435 / -435 Weight 63.5 kg 64 kg Constitutional Constitutional: no acute distress, thin, chronically ill appearing and cooperative *Routine HEENT Exam Head: Present normocephalic Eye: Present EOMI and PERRL ENT: Present mucous membranes moist *Routine Neck Exam Neck: Present supple; Absent lymphadenopathy *Routine Respiratory Exam Respiratory: Present CTA bilaterally; Absent rhonchi, wheezes or crackles *Routine Cardiovascular Exam Cardiovascular: Present RRR *Routine Abdominal Exam Abdominal: Present soft and normoactive bowel sounds; Absent tenderness *Routine Rectal Exam Patient deferred: visual exam *Routine Exam Patient deferred: penile exam *Routine Extremities Exam Extremities: Absent cyanosis, clubbing or edema Comments: Absent right lower extremity, AKA *Routine Skin Exam Skin: Present warm; Absent rash *Routine Neurological Exam Neurological: Present alert and moving all extremities; Absent altered mental status Comments: Oriented to self and place. Confused on time. Results Data Completed and Pending Labs on day of discharge: Labs from last 24 hours 03/29/24 03/28/24 03/28/24 06:05 19:45 16:57 WBC 10.3 RBC 4.77 Hgb 15.1 Hct 45.3 MCV 95.0 H MCH 31.7 H MCHC 33.3 RDW 14.6 Plt Count 117 L MPV 10.5 H Neut % (Auto) 88.9 H Lymph % (Auto) 5.7 L [place] % (Auto) 4.9 Eos % (Auto) 0.0 L Baso % (Auto) 0.1 Neut # (Auto) 9.1 H Lymph # (Auto) 0.6 L [place] # (Auto) 0.5 Eos # (Auto) 0.0 Baso # (Auto) 0.0 PT INR VBG pH VBG pCO2 VBG pO2 VBG HCO3 VBG Total CO2 VBG O2 Saturation VBG Base Excess VBG Lactic Acid Sodium 138 Potassium 4.1 Chloride 104 Carbon Dioxide 27 Anion Gap 11.1 BUN 21 H D Creatinine 0.90 Estimated Creat Clear 52 Estimated GFR 81 Est GFR ( Amer) 98 Glucose 123 H Calcium 8.9 Magnesium 2.1 D Total Bilirubin 0.6 AST 22 ALT 21 Alkaline Phosphatase 70 Troponin I < 0.01 < 0.01 NT-Pro-B Natriuret Pep Total Protein 6.1 L Albumin 3.8 Globulin 2.3 Albumin/Globulin Ratio 1.7 Procalcitonin Chlamy pneumoniae PCR Adenovirus (PCR) B. pertussis DNA (PCR) Coronavirus OC43 (PCR) Coronavirus HKU1 (PCR) Coronavirus 229E (PCR) SARS-CoV-2 (PCR) Coronavirus NL63 (PCR) HCV Ab ZEESHAN w/Rflx PCR Qn HIV Ag/Ab Combo Qual Human Metapneumovir PCR Influenza A (H1) PCR Influ A (H1N1/09) PCR Influenza A (H3) PCR Influenza Type A (PCR) Influenza Type B (PCR) M. pneumoniae (PCR) Parainfluenza 1 (PCR) Parainfluenza 2 (PCR) Parainfluenza 3 (PCR) Parainfluenza 4 (PCR) RSV (PCR) Entero/Rhino (PCR) 03/28/24 03/28/24 03/28/24 13:52 13:39 13:15 WBC 9.1 RBC 4.57 L Hgb 14.7 Hct 43.4 MCV 95.0 H MCH 32.2 H MCHC 33.9 RDW 14.6 Plt Count 119 L MPV 10.9 H Neut % (Auto) 86.5 H Lymph % (Auto) 5.3 L [place] % (Auto) 5.4 Eos % (Auto) 2.2 Baso % (Auto) 0.1 Neut # (Auto) 7.9 H Lymph # (Auto) 0.5 L [place] # (Auto) 0.5 Eos # (Auto) 0.2 Baso # (Auto) 0.0 PT 12.0 INR 1.10 VBG pH 7.40 VBG pCO2 37.0 VBG pO2 150.3 H VBG HCO3 22.1 L VBG Total CO2 23.3 VBG O2 Saturation 98.8 H VBG Base Excess -2.7 L VBG Lactic Acid 1.4 Sodium 135 L Potassium 4.4 Chloride 103 Carbon Dioxide 26 Anion Gap 10.4 BUN 14 Creatinine 0.80 Estimated Creat Clear Estimated GFR 93 Est GFR ( Amer) 112 Glucose 120 H Calcium 8.7 Magnesium 1.8 Total Bilirubin 0.9 AST 24 ALT 22 Alkaline Phosphatase 78 Troponin I < 0.01 NT-Pro-B Natriuret Pep 5700 H Total Protein 6.2 L Albumin 3.9 Globulin 2.3 Albumin/Globulin Ratio 1.7 Procalcitonin 0.098 Chlamy pneumoniae PCR Not detected Adenovirus (PCR) Not detected B. pertussis DNA (PCR) Not detected Coronavirus OC43 (PCR) Not detected Coronavirus HKU1 (PCR) Not detected Coronavirus 229E (PCR) Not detected SARS-CoV-2 (PCR) Not detected Coronavirus NL63 (PCR) Not detected HCV Ab ZEESHAN w/Rflx PCR Qn Negative HIV Ag/Ab Combo Qual Negative Human Metapneumovir PCR Not detected Influenza A (H1) PCR Not detected Influ A (H1N1/09) PCR Not detected Influenza A (H3) PCR Detected A Influenza Type A (PCR) Not detected Influenza Type B (PCR) Not detected M. pneumoniae (PCR) Not detected Parainfluenza 1 (PCR) Not detected Parainfluenza 2 (PCR) Not detected Parainfluenza 3 (PCR) Not detected Parainfluenza 4 (PCR) Not detected RSV (PCR) Not detected Entero/Rhino (PCR) Not detected DS: Diagnosis Discharge Diagnosis (1) Right lower lobe pneumonia: Status: Acute Code(s): J18.9 - Pneumonia, unspecified organism Qualifiers: Pneumonia type: due to unspecified organism Qualified Code(s): J18.9 - Pneumonia, unspecified organism (2) Influenza A: Status: Acute Code(s): J10.1 - Influenza due to other identified influenza virus with other respiratory manifestations (3) Acute hypoxemic respiratory failure: Status: Acute Code(s): J96.01 - Acute respiratory failure with hypoxia (4) HTN (hypertension): Status: Chronic Code(s): I10 - Essential (primary) hypertension Qualifiers: Hypertension type: essential hypertension Qualified Code(s): I10 - Essential (primary) hypertension (5) CAD (coronary artery disease): Status: Chronic Code(s): I25.10 - Atherosclerotic heart disease of [place] coronary artery without angina pectoris Qualifiers: Associated angina: without angina Coronary Disease-Associated Artery/Lesion type: [place] artery [place] vs. transplanted heart: [place] heart Qualified Code(s): I25.10 - Atherosclerotic heart disease of [place] coronary artery without angina pectoris (6) HLD (hyperlipidemia): Status: Chronic Code(s): E78.5 - Hyperlipidemia, unspecified Qualifiers: Hyperlipidemia type: mixed hyperlipidemia Qualified Code(s): E78.2 - Mixed hyperlipidemia (7) HFrEF (heart failure with reduced ejection fraction): Status: Acute Code(s): I50.20 - Unspecified systolic (congestive) heart failure (8) BPH without obstruction/lower urinary tract symptoms: Status: Acute Code(s): N40.0 - Benign prostatic hyperplasia without lower urinary tract symptoms Meds Home Medications and Allergies Home Medications ?Medication ?Instructions ?Recorded ?Confirmed ?Type ezetimibe 10 mg-simvastatin 40 mg 1 tab PO HS 07/11/17 03/28/24 History tablet lansoprazole 30 mg capsule,delayed 30 mg PO DAILY 09/27/22 03/28/24 History release levocetirizine 5 mg tablet 5 mg PO DAILY 09/27/22 03/28/24 History trazodone 100 mg tablet 100 mg PO HS 09/27/22 03/29/24 History fluticasone fur. 100 mcg-umeclid 1 inh inhalation DAILY 01/29/23 03/28/24 History 62.5 mcg-vilant 25 mcg inhalat.powder (Trelegy Ellipta) apixaban 5 mg tablet (Eliquis) 5 mg PO BID 03/28/24 03/28/24 History duloxetine 60 mg capsule,delayed 60 mg PO DAILY 03/28/24 03/28/24 History release famotidine 20 mg tablet 20 mg PO DAILY 03/28/24 03/28/24 History fluticasone propionate 50 1 spray intranasal DAILY 03/28/24 03/28/24 History mcg/actuation nasal spray,suspension potassium chloride 20 mEq 20 meq PO DAILY 03/28/24 03/28/24 History tablet,extended release(part/cryst) tamsulosin 0.4 mg capsule 0.4 mg PO HS 03/28/24 03/28/24 History metoprolol tartrate 50 mg tablet 50 mg PO BID 03/29/24 03/29/24 History oseltamivir 75 mg capsule (Tamiflu) 75 mg PO BID 4 days #7 caps 03/29/24 Rx New Prescriptions to Start Prescriptions: oseltamivir [Tamiflu] Sven Coates Allergies Allergy/AdvReac Type Severity Reaction Status Date / Time No Known Allergies Allergy Verified 01/29/23 09:39 Discharge Plan Disposition Patient Disposition: Home, Self-Care Condition: Fair Follow up Plan Follow up with: Stefania Pagan APRN [Primary Care Provider] - 04/04/24 10:30 am Prescriptions/Medication Reconciliation: New oseltamivir [Tamiflu] 75 mg Capsule 75 mg PO BID 4 Days Qty: 7 0RF Continued ezetimibe-simvastatin 10-40 mg tablet 1 tab PO HS trazodone 100 mg tablet 100 mg PO HS lansoprazole 30 mg capsule,delayed release(DR/EC) 30 mg PO DAILY levocetirizine 5 mg tablet 5 mg PO DAILY Trelegy Ellipta 100-62.5-25 mcg Blister With Device 1 inh INHALATION DAILY potassium chloride 20 mEq tablet,ER particles/crystals 20 meq PO DAILY famotidine 20 mg tablet 20 mg PO DAILY duloxetine 60 mg capsule,delayed release(DR/EC) 60 mg PO DAILY Eliquis 5 mg tablet 5 mg PO BID tamsulosin 0.4 mg capsule 0.4 mg PO HS fluticasone propionate 50 mcg/actuation spray,suspension 1 spray INTRANASAL DAILY Rx Instructions: 1 spray in both nostrils metoprolol tartrate 50 mg Tablet 50 mg PO BID Problem Reconciliation Problems Reviewed?: Yes Patient Discharge Instructions ACTIVITY: Continue current activity DIET: continue same diet Patient Instructions: DI for Pneumonia -- Adult, DI for H1N1 Influenza -- Adult Print Language: [place] Providers Primary Care Provider: Stefania Pagan Admit Provider: Sven Coates Attending Provider: Sven Coates
[2024-03-29] MEDS: SODIUM CHLORIDE 3% 15ML NEB 3 ML IH (13:21)
[2024-03-29 13:23] VITALS: PULSE 80; RESP 18
--- NOTE | 2024-04-01 11:35 | SW/DCPLANNER ---
Spoke with patient's daughter on the phone. Patient's daughter stated that her father is a little confused and that she called his primary care provider and they suggested that they stop taking his tamiflu. Patients daughter stated that they are aware of his upcoming appointment with his primary care provider. Patients daughter stated that they have no concerns or questions at this time. Zhane German
== END 2024-03-29 15:44 | disposition home or self-care (01) ==
LOC: ER 15:57 → 2ND 17:00
PROVIDERS: Physician Assistant; Admitting Provider Internal Medicine Adolescent Medicine; Emergency Provider Emergency Medicine; PCP Nurse Practitioner Family; Visit Provider Internal Medicine Adolescent Medicine
DX: J96.01 Acute respiratory failure with hypoxia (principal); J10.01 Influenza due to other identified influenza virus with the same other identified influenza virus pneumonia; J44.9 Chronic obstructive pulmonary disease, unspecified; I50.23 Acute on chronic systolic (congestive) heart failure; I11.0 Hypertensive heart disease with heart failure; I25.10 Atherosclerotic heart disease of native coronary artery without angina pectoris; K21.9 Gastro-esophageal reflux disease without esophagitis; E78.2 Mixed hyperlipidemia; N40.0 Benign prostatic hyperplasia without lower urinary tract symptoms; Z79.899 Other long term (current) drug therapy; Z79.01 Long term (current) use of anticoagulants; Z79.51 Long term (current) use of inhaled steroids; Z72.0 Tobacco use
CPT/HCPCS: 36415; 71275; 80053; 82803; 83735; 83880; 84145; 84484; 85025; 85610; 86803; 87040; 87389; 87633; 93005; 94640; 99291; G0378; J0456; J0696; J1100; J1940; J7050; J7620; Q9967

== ENCOUNTER 2024-04-08 18:40 | Emergency (ER) | payer MEDICARE, BC, SELFPAY ==
[2024-04-08 18:41] VITALS: BP 159/75; PULSE 75; RESP 17; TEMP 36.7; O2SAT 98; BMI 21.6
--- NOTE | 2024-04-08 18:45 | ED_ITS ---
Discharge Plan Disposition Patient Disposition: Home, Self-Care Condition: Good Prescriptions Prescriptions: No Action ezetimibe-simvastatin 10-40 mg tablet 1 tab PO HS trazodone 100 mg tablet 100 mg PO HS lansoprazole 30 mg capsule,delayed release(DR/EC) 30 mg PO DAILY levocetirizine 5 mg tablet 5 mg PO DAILY Trelegy Ellipta 100-62.5-25 mcg Blister With Device 1 inh INHALATION DAILY potassium chloride 20 mEq tablet,ER particles/crystals 20 meq PO DAILY famotidine 20 mg tablet 20 mg PO DAILY duloxetine 60 mg capsule,delayed release(DR/EC) 60 mg PO DAILY Eliquis 5 mg tablet 5 mg PO BID tamsulosin 0.4 mg capsule 0.4 mg PO HS fluticasone propionate 50 mcg/actuation spray,suspension 1 spray INTRANASAL DAILY Rx Instructions: 1 spray in both nostrils metoprolol tartrate 50 mg Tablet 50 mg PO BID oseltamivir [Tamiflu] 75 mg Capsule 75 mg PO BID 4 Days Qty: 7 0RF Referrals Follow up/Referrals: Tapan Puente MD [Referring] - See instructions Stefania Pagan APRN [Primary Care Provider] - See instructions Activity Restrictions/Add. Instructions Additional Instructions/Restrictions: As we discussed I have referred you to urology. Please call tomorrow make your appointment. Please utilize the constipation sheet gave you to help with disimpaction. Please follow-up with your PCP within 48 hours for recheck. Return to ER for any worsening signs or symptoms as needed. Clinical Impressions Clinical Impression: BPH with urinary obstruction, Bladder outlet obstruction Constipation Qualifiers: Constipation type: unspecified constipation type Qualified Code(s): K59.00 - Constipation, unspecified Instructions Patient Instructions: DI for Urinary Tract Infection (UTI), DI for Urinary Tract Infection in Children Print Language Print Language: Hebrew Discharge ED Provider: Keith Davila General Adult HPI <COOPER Byrd - Last Filed: 04/09/24 13:41> General Chief complaint: Urogenital-Male Stated complaint: urinary retention Time Seen by Provider: 04/08/24 18:44 History of Present Illness HPI narrative: Patient presents for evaluation of urinary difficulty. Patient states that he normally has no problem with urination however since yesterday he has been unable to urinate but just a little bit of urine at a time. He has increased urinary frequency feels like he is straining with only little output. He denies any burning hematuria fever chills hemoptysis hematochezia melena nausea vomit diarrhea. He denies personal history or knowledge of prostate enlargement. He does have a history of malignant melanoma with recurrence on the scalp, history of coronary artery disease hypertension hyperlipidemia CHF with reduced ejection fraction peripheral vascular disease. Denies chest pain shortness of breath fever chills hemoptysis hematochezia melena hematemesis hematuria nausea vomiting or diarrhea. Related Data Home Medications ?Medication ?Instructions ?Recorded ?Confirmed ezetimibe 10 mg-simvastatin 40 mg 1 tab PO HS 07/11/17 03/28/24 tablet lansoprazole 30 mg capsule,delayed 30 mg PO DAILY 09/27/22 03/28/24 release levocetirizine 5 mg tablet 5 mg PO DAILY 09/27/22 03/28/24 trazodone 100 mg tablet 100 mg PO HS 09/27/22 03/29/24 fluticasone fur. 100 mcg-umeclid 1 inh inhalation DAILY 01/29/23 03/28/24 62.5 mcg-vilant 25 mcg inhalat.powder (Trelegy Ellipta) apixaban 5 mg tablet (Eliquis) 5 mg PO BID 03/28/24 03/28/24 duloxetine 60 mg capsule,delayed 60 mg PO DAILY 03/28/24 03/28/24 release famotidine 20 mg tablet 20 mg PO DAILY 03/28/24 03/28/24 fluticasone propionate 50 1 spray intranasal DAILY 03/28/24 03/28/24 mcg/actuation nasal spray,suspension potassium chloride 20 mEq 20 meq PO DAILY 03/28/24 03/28/24 tablet,extended release(part/cryst) tamsulosin 0.4 mg capsule 0.4 mg PO HS 03/28/24 03/28/24 metoprolol tartrate 50 mg tablet 50 mg PO BID 03/29/24 03/29/24 Previous Rx's ?Medication ?Instructions ?Recorded oseltamivir 75 mg capsule (Tamiflu) 75 mg PO BID 4 days #7 caps 03/29/24 Allergies Allergy/AdvReac Type Severity Reaction Status Date / Time No Known Allergies Allergy Verified 01/29/23 09:39 [facility] <COOPER Byrd - Last Filed: 04/09/24 13:41> [facility] Disclaimer: The information contained in this section may have been updated after the patient was seen, as this information can be updated by other users. Medical History Stenosis of carotid artery Left carotid bruit BPH without obstruction/lower urinary tract symptoms BPH (benign prostatic hyperplasia) CALEB (renal artery stenosis) HFrEF (heart failure with reduced ejection fraction) CHF (congestive heart failure) Dyspnea HLD (hyperlipidemia) HTN (hypertension) CAD (coronary artery disease) Abdominal aortic aneurysm CKD (chronic kidney disease) Atrial fibrillation Surgical History (Updated 04/02/24 @ 00:00 by Renny Aldridge) H/O fasciotomy Family History Other No significant family history Social History Smoking Status: Current every day smoker tobacco type: cigarettes second hand exposure: No alcohol intake: never substance use type: denies use current occupational status: retired Travel in the last 8 weeks: Inside the [place] household members: spouse housing: house caffeine: Yes Other Medical History Have you received the Flu Vaccine for this season: No Have you received the Pneumonia Vaccine: No <COOPER Byrd - Last Filed: 04/09/24 13:41> ROS Obtained: Yes Systems reviewed as appropriate & no additional complaints except as documented Physical Exam <COOPER Byrd - Last Filed: 04/09/24 13:41> General General appearance: alert and in no apparent distress Respiratory Respiratory exam: Present normal lung sounds bilaterally Cardiovascular Cardiovascular exam: Present regular rate Neurological Exam Neurological exam: Present alert and oriented X3 Medical Decision Making <COOPER Byrd - Last Filed: 04/09/24 13:41> Medical Records Medical records reviewed: Yes I reviewed the patient's medical records. Screening: Per USPSTF and CDC recommendations, given the prevalence of disease in our region, it is our hospital?s policy to screen for HIV and viral Hepatitis for all patients aged 18 and over and those with ongoing risk factors. Anjel Inquiry Pt receiving controlled substance: No Vital Signs: 04/08/24 18:41 04/08/24 19:20 04/08/24 19:31 Temperature 98.0 F Temperature Source Oral Pulse Rate 76 85 Pulse Rate [Left Radial] 75 Respiratory Rate 17 Blood Pressure 160/77 H 150/68 H Blood Pressure [Right Arm] 159/75 H Blood Pressure Mean Blood Pressure Mean [Right Arm] 103 Blood Pressure Source [Right Arm] Automatic Cuff Blood Pressure Position [Right Arm] Supine 02 Sat by Pulse Oximetry 98 97 96 Oxygen Delivery Method Room Air Room Air Room Air 04/08/24 20:01 04/08/24 20:52 Temperature 98.7 F Temperature Source Pulse Rate 73 Pulse Rate [Left Radial] Respiratory Rate 16 Blood Pressure 138/86 138/86 Blood Pressure [Right Arm] Blood Pressure Mean 100 Blood Pressure Mean [Right Arm] Blood Pressure Source [Right Arm] Blood Pressure Position [Right Arm] 02 Sat by Pulse Oximetry Oxygen Delivery Method Room Air Room Air Lab Data Lab results reviewed: Yes I reviewed the patient's lab results. Lab Results 04/08/24 18:41: WBC 9.2, RBC 4.94, Hgb 15.7, Hct 46.7, MCV 94.5 H, MCH 31.8 H, MCHC 33.6, RDW 14.3, Plt Count 177, MPV 10.7 H, Neut % (Auto) 71.7, Lymph % (Auto) 21.0, [place] % (Auto) 5.9, Eos % (Auto) 0.4, Baso % (Auto) 0.3, Neut # (Auto) 6.6, Lymph # (Auto) 1.9, [place] # (Auto) 0.5, Eos # (Auto) 0.0, Baso # (Auto) 0.0, Sodium 137, Potassium 4.9, Chloride 103, Carbon Dioxide 28, Anion Gap 10.9, BUN 12, Creatinine 0.90, Estimated GFR 81, Est GFR ( Amer) 98, Glucose 90, Calcium 8.5, Magnesium 2.1, Total Bilirubin 1.0, AST 25, ALT 19, Alkaline Phosphatase 93, Total Protein 6.8, Albumin 4.1, Globulin 2.7, Albumin/Globulin Ratio 1.5 04/08/24 20:00: Urine Color Yellow, Urine Appearance Clear, Urine pH 6.0, Ur Specific [place] >= 1.030, Urine Protein Negative, Urine Glucose (UA) Negative, Urine Ketones Negative, Urine Blood Trace-i, Urine Nitrate Negative, Urine Bilirubin Negative, Urine Urobilinogen 0.2, Ur Leukocyte Esterase Negative, Urine RBC 10-20, Urine WBC 5-10, Ur Squamous Epith Cells 3-5, Urine Bacteria 1+, Urine Mucus 1+ 04/08/24 18:41 04/08/24 18:41 Orders (Tests/Meds): ORDERS Category Date Time Status CT abdomen pelvis wo con Stat Cat Scan 04/08/24 18:46 Completed CBC w/Auto Diff [Complete Blood Count Auto Diff] Stat Lab 04/08/24 18:41 Completed CMP [Comprehensive Metabolic Panel] Stat Lab 04/08/24 18:41 Completed Magnesium Stat Lab 04/08/24 18:41 Completed UA [Urinalysis and Microscopic] Stat Lab 04/08/24 20:00 Completed Medical Decision Narrative: In summary patient is a 83-year-old male who presents to the emergency department for evaluation of decreased urinary volume but increased urinary frequency. Patient is hemodynamically stable with a blood pressure 159/75 pulse 75 with normal sinus rhythm on the bedside monitor breathing 17 times a minute satting at 98% on room air upon arrival, afebrile at 98.0. Physical exam is remarkable for clear breath sounds to the bases without adventitious sounds or increased work of breathing, abdomen is soft but is tender to palpation and slightly full in the suprapubic area without rebound or guarding or rigidity. Bowel sounds normal active. External genitalia appear normal with no tenderness.. Differential diagnosis includes bladder outlet obstruction versus urinary tract infection versus renal failure versus constipation etc. Initial workup will be conducted with hematologic labs CT scan abdomen pelvis urinalysis. Initial interventions were considered however patient has no specific complaints or red flags thus deferred for now. Initial workup reviewed by me shows and my informal interpretation of his CT scan abdomen pelvis shows significant rectal constipation as well as significant prostate hypertrophy with calcifications and a slightly distended bladder with a nonthickened wall prior to radiology read, and that his hematologic labs are actually nonactionable and reassuring with normal white count normal electrolytes normal kidney function. Given this I personally placed a Mcnair catheter with minimal difficulty on the first attempt with a coud? 16 [place] catheter and a catheterized urinalysis shows trace blood negative nitrite negative protein negative leukocyte Estrace on dipstick and microscopic exam shows 10-20 red cells 5-10 white cells 3-5 epithelial cells and 1+ bacteria. I reviewed previous imaging and my independent interpretation of the CT scan abdomen pelvis from January 2023 shows that he did have a similar sized prostate however the amount of calcifications seen today is less and more importantly patient had no evidence of increased stool burden in the rectum on that imaging. Patient himself states that he only began having symptoms for the first time this week corroborating my suspicion that he had BPH without urinary obstruction previously. He and his family both deny any knowledge that he had enlarged prostate before today. Review of his records however shows that he had an elevated PSA of 4.8 in 2018 and nearly doubled a year later into 9.4 and that is the last PSA that I am able to find in our records. Given this I had interactive discussion with the patient and his family regarding his GUSTAFSON findings and recommendations. Patient will be sent to urology for further evaluation of his BPH and elevated PSA, I have given the patient a disimpaction sheet as I think the combination of both BPH and constipation are synergistic and causing bladder outlet obstruction. Mcnair catheter will remain in place until evaluation by urology. Patient is to follow-up with PCP within 48 hours for recheck of his laboratory work and recheck of other relevant labs and he will likely need further titration of his stool regimen if he was unsuccessful with the disimpaction sheet. Patient and family are comfortable going home with that plan and verbalized understanding. <Keith Davila MD - Last Filed: 04/09/24 16:51> Vital Signs: 04/08/24 18:41 04/08/24 19:20 04/08/24 19:31 Temperature 98.0 F Temperature Source Oral Pulse Rate 76 85 Pulse Rate [Left Radial] 75 Respiratory Rate 17 Blood Pressure 160/77 H 150/68 H Blood Pressure [Right Arm] 159/75 H Blood Pressure Mean Blood Pressure Mean [Right Arm] 103 Blood Pressure Source [Right Arm] Automatic Cuff Blood Pressure Position [Right Arm] Supine 02 Sat by Pulse Oximetry 98 97 96 Oxygen Delivery Method Room Air Room Air Room Air 04/08/24 20:01 04/08/24 20:52 Temperature 98.7 F Temperature Source Pulse Rate 73 Pulse Rate [Left Radial] Respiratory Rate 16 Blood Pressure 138/86 138/86 Blood Pressure [Right Arm] Blood Pressure Mean 100 Blood Pressure Mean [Right Arm] Blood Pressure Source [Right Arm] Blood Pressure Position [Right Arm] 02 Sat by Pulse Oximetry Oxygen Delivery Method Room Air Room Air Lab Data Lab Results 04/08/24 18:41: WBC 9.2, RBC 4.94, Hgb 15.7, Hct 46.7, MCV 94.5 H, MCH 31.8 H, MCHC 33.6, RDW 14.3, Plt Count 177, MPV 10.7 H, Neut % (Auto) 71.7, Lymph % (Auto) 21.0, [place] % (Auto) 5.9, Eos % (Auto) 0.4, Baso % (Auto) 0.3, Neut # (Auto) 6.6, Lymph # (Auto) 1.9, [place] # (Auto) 0.5, Eos # (Auto) 0.0, Baso # (Auto) 0.0, Sodium 137, Potassium 4.9, Chloride 103, Carbon Dioxide 28, Anion Gap 10.9, BUN 12, Creatinine 0.90, Estimated GFR 81, Est GFR ( Amer) 98, Glucose 90, Calcium 8.5, Magnesium 2.1, Total Bilirubin 1.0, AST 25, ALT 19, Alkaline Phosphatase 93, Total Protein 6.8, Albumin 4.1, Globulin 2.7, Albumin/Globulin Ratio 1.5 04/08/24 20:00: Urine Color Yellow, Urine Appearance Clear, Urine pH 6.0, Ur Specific [place] >= 1.030, Urine Protein Negative, Urine Glucose (UA) Negative, Urine Ketones Negative, Urine Blood Trace-i, Urine Nitrate Negative, Urine Bilirubin Negative, Urine Urobilinogen 0.2, Ur Leukocyte Esterase Negative, Urine RBC 10-20, Urine WBC 5-10, Ur Squamous Epith Cells 3-5, Urine Bacteria 1+, Urine Mucus 1+ Orders (Tests/Meds): ORDERS Category Date Time Status CT abdomen pelvis wo con Stat Cat Scan 04/08/24 18:46 Completed CBC w/Auto Diff [Complete Blood Count Auto Diff] Stat Lab 04/08/24 18:41 Completed CMP [Comprehensive Metabolic Panel] Stat Lab 04/08/24 18:41 Completed Magnesium Stat Lab 04/08/24 18:41 Completed UA [Urinalysis and Microscopic] Stat Lab 04/08/24 20:00 Completed Medical Decision Narrative: In summary patient is a 83-year-old male who presents to the emergency department for evaluation of decreased urinary volume but increased urinary frequency. Patient is hemodynamically stable with a blood pressure 159/75 pulse 75 with normal sinus rhythm on the bedside monitor breathing 17 times a minute satting at 98% on room air upon arrival, afebrile at 98.0. Physical exam is remarkable for clear breath sounds to the bases without adventitious sounds or increased work of breathing, abdomen is soft but is tender to palpation and slightly full in the suprapubic area without rebound or guarding or rigidity. Bowel sounds normal active. External genitalia appear normal with no tenderness.. Differential diagnosis includes bladder outlet obstruction versus urinary tract infection versus renal failure versus constipation etc. Initial workup will be conducted with hematologic labs CT scan abdomen pelvis urinalysis. Initial interventions were considered however patient has no specific complaints or red flags thus deferred for now. Initial workup reviewed by me shows and my informal interpretation of his CT scan abdomen pelvis shows significant rectal constipation as well as significant prostate hypertrophy with calcifications and a slightly distended bladder with a nonthickened wall prior to radiology read, and that his hematologic labs are actually nonactionable and reassuring with normal white count normal electrolytes normal kidney function. Given this I personally placed a Mcnair catheter with minimal difficulty on the first attempt with a coud? 16 [place] catheter and a catheterized urinalysis shows trace blood negative nitrite negative protein negative leukocyte Estrace on dipstick and microscopic exam shows 10-20 red cells 5-10 white cells 3-5 epithelial cells and 1+ bacteria. I reviewed previous imaging and my independent interpretation of the CT scan abdomen pelvis from January 2023 shows that he did have a similar sized prostate however the amount of calcifications seen today is less and more importantly patient had no evidence of increased stool burden in the rectum on that imaging. Patient himself states that he only began having symptoms for the first time this week corroborating my suspicion that he had BPH without urinary obstruction previously. He and his family both deny any knowledge that he had enlarged prostate before today. Review of his records however shows that he had an elevated PSA of 4.8 in 2018 and nearly doubled a year later into 9.4 and that is the last PSA that I am able to find in our records. Given this I had interactive discussion with the patient and his family regarding his GUSTAFSON findings and recommendations. Patient will be sent to urology for further evaluation of his BPH and elevated PSA, I have given the patient a disimpaction sheet as I think the combination of both BPH and constipation are synergistic and causing bladder outlet obstruction. Mcnair catheter will remain in place until evaluation by urology. Patient is to follow-up with PCP within 48 hours for recheck of his laboratory work and recheck of other relevant labs and he will likely need further titration of his stool regimen if he was unsuccessful with the disimpaction sheet. Patient and family are comfortable going home with that plan and verbalized understanding. I was consulted by the PALMIRA, and we discussed the complexity of the problems being addressed. I approved the treatment and management plan for this patient's care in the Emergency Department, thus performing a substantive portion of the medical decision making. Keith Davila MD Procedures <COOPER Byrd - Last Filed: 04/09/24 13:41> Catheter Insertion (Urinary) Prophylactic Antibiotics Given: No Bladder Scan/US before Catheterization: No Preparation: Povidone-Iodine Type of Catheter Inserted: 2 way and coude tip Catheter [place]ian Size: 16 Catheter balloon size (mL): 10 Topical Anesthesia Used: Yes Results: successfully catheterized-immediate flow Patient Tolerated Procedure: well Complications: none Critical Care <COOPER Byrd - Last Filed: 04/09/24 13:41> Critical Care Time Critical Care Time: No
--- NOTE | 2024-04-08 18:46 | CT_ITS ---
PROCEDURE INFORMATION: Exam: CT Abdomen And Pelvis Without Contrast Exam date and time: 04/08/2024 6:56 PM Age: 83 years old Clinical indication: Other: Urinary retention TECHNIQUE: Imaging protocol: Computed tomography of the abdomen and pelvis without contrast. Radiation optimization: All CT scans at this facility use at least one of these dose optimization techniques: automated exposure control; mA and/or kV adjustment per patient size (includes targeted exams where dose is matched to clinical indication); or iterative reconstruction. COMPARISON: CT ABDOMEN PELVIS W CON 01/29/2023 9:59 AM FINDINGS: Lungs: Right lower lobe tree-in-bud opacities differential diagnosis includes infectious bronchiolitis versus aspiration bronchiolitis. Liver: Normal. No mass. Gallbladder and biliary ducts: Normal. No calcified stones. No ductal dilation. Pancreas: Normal. No ductal dilation. Spleen: Normal. No splenomegaly. Adrenal glands: Normal. No mass. Kidneys and ureters: Multiple Bosniak 1 renal cystic lesions defined as homogeneous and fluid density (-9 to 20 HU), no septations or calcifications, having rangel smooth and thin. Largest cyst measures 1.1cm. No follow-up recommended. No hydronephrosis. Stomach and bowel: Diverticula are scattered throughout the colon without inflammatory changes. Appendix: No evidence of appendicitis. Intraperitoneal space: Unremarkable. No free air. No significant fluid collection. 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 Lymph nodes: Unremarkable. No enlarged lymph nodes. Urinary bladder: Unremarkable as visualized. Reproductive: Enlarged prostate measuring 6.8 x 4.9 x 6.7 cm. Bones/joints: Bilateral sacroiliac joints are fused. Moderate loss of intervertebral disc space with degenerative changes involving L1 through S1. Soft tissues: Normal. IMPRESSION: 1. Right lower lobe tree-in-bud opacities differential diagnosis includes infectious bronchiolitis versus aspiration bronchiolitis. 2. 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 3. Enlarged prostate measuring 6.8 x 4.9 x 6.7 cm. COMMENTS: Consistent with the [employer]'s Incidental Findings Committee white paper (J Am Duong Radiol 2018): Any incidental renal lesion less than 1 cm or classified as too small to characterize, or any incidental cystic renal lesion characterized as simple-appearing, is likely benign. No follow-up imaging is recommended for these lesions per consensus recommendations based on imaging criteria.
[2024-04-08 18:55] LABS: Albumin Level 4.1 g/dl (3.5-5.0); Chloride 103 mmol/L (98-107); Potassium 4.9 mmoL/L (3.5-5.1); Sodium 137 mmol/L (136-145)
[2024-04-08 18:58] LABS: Alanine Aminotransferase 19 U/L (12-78); Albumin/Globulin Ratio 1.5 (1.1-1.8); Alkaline Phosphatase 93 U/L (38-126); Anion Gap 10.9 mEq/L (5-15); Aspartate Amino Transferase 25 U/L (17-59); Blood Urea Nitrogen 12 mg/dl (9-20); Calcium 8.5 mg/dl (8.4-10.2); Carbon Dioxide 28 mmol/L (22.0-30.0); Estimated Glomerular Filt Rate 81 ml/min (>60); GFR (African American) 98 ML/MIN (>60); Globulin 2.7 g/dL (1.3-3.2); Glucose 90 mg/dl (74-100); Total Protein,Serum 6.8 g/dl (6.3-8.2)
[2024-04-08 19:02] LABS: Basophils % 0.3 % (0.1-2.0); Eosinophils % 0.4 % (0.1-12.0); Hematocrit 46.7 % (42.0-52.0); Hemoglobin 15.7 g/dL (14.1-18.0); Lymphocytes # 1.9 K/mm3 (0.7-4.5); Mean Corpuscular HGB Conc 33.6 g/dL (31.8-35.4); Mean Corpuscular Hemoglobin 31.8 pg (27.0-31.2); Mean Corpuscular Volume 94.5 fl (80-94); Mean Platelet Volume 10.7 fl (7.4-10.4); Monocytes # 0.5 K/mm3 (0.1-1.0); Monocytes % 5.9 % (1.7-9.3); Neutrophils # 6.6 K/mm3 (1.8-7.8); Neutrophils % 71.7 % (37.0-80.0); Platelet Count 177 K/mm3 (142-424); Red Blood Count 4.94 M/mm3 (4.60-6.20); Red Cell Distribution Width 14.3 % (11.5-17.5); White Blood Count 9.2 K/mm3 (4.8-10.8)
[2024-04-08 19:20] VITALS: BP 160/77; PULSE 76; O2SAT 97
[2024-04-08 19:26] LABS: Magnesium 2.1 mg/dl (1.6-2.3)
[2024-04-08 19:31] VITALS: BP 150/68; PULSE 85; O2SAT 96
[2024-04-08 20:01] VITALS: BP 138/86
[2024-04-08 20:14] LABS: Microscopic, Urine URINE MICROSCOPIC (MICROSCOPIC)
[2024-04-08 20:34] LABS: Appearance,Urine CLEAR (Clear); Bilirubin,Urine Negative (Negative); Blood, Urine TRACE-I (Negative); Color,Urine YELLOW (Yellow); Glucose,Urine (UA) Negative (Negative); Ketones,Urine Negative (Negative); Leukocyte Esterase,Urine Negative (Negative); Nitrate,Urine Negative (Negative); Protein,Urine Negative (Negative); Specific Gravity, Urine >= 1.030 (1.005-1.030); Urobilinogen,Urine 0.2 EU/dl (0.2)
[2024-04-08 20:52] VITALS: BP 138/86; PULSE 73; RESP 16; TEMP 37.1; O2SAT 97
[2024-04-08 21:08] LABS: Bacteria,Urine 1+ /lpf; Mucus,Urine 1+ /lpf
== END 2024-04-08 21:10 | disposition home or self-care (01) ==
PROVIDERS: Physician Assistant; Emergency Provider Emergency Medicine; PCP Nurse Practitioner Family
DX: N40.1 Benign prostatic hyperplasia with lower urinary tract symptoms (principal); N13.8 Other obstructive and reflux uropathy; K59.00 Constipation, unspecified; R33.9 Retention of urine, unspecified; R35.0 Frequency of micturition
CPT/HCPCS: 51702; 74176; 80053; 81001; 83735; 85025; 99284

== ENCOUNTER 2024-04-09 16:36 | Emergency (ER) | payer MEDICARE, BC, SELFPAY ==
[2024-04-09 16:37] VITALS: BP 157/96; PULSE 90; RESP 18; TEMP 37; O2SAT 98; BMI 22.8
--- NOTE | 2024-04-09 16:53 | HMH.EDGENADL ---
Discharge Plan Disposition Patient Disposition: Home, Self-Care Condition: Good Prescriptions Prescriptions: New oxybutynin chloride 5 mg tablet 5 mg PO BID Qty: 30 0RF phenazopyridine [Pyridium] 100 mg tablet 100 mg PO TID PRN (Reason: Bladder spasm pain) Qty: 30 0RF No Action ezetimibe-simvastatin 10-40 mg tablet 1 tab PO HS trazodone 100 mg tablet 100 mg PO HS lansoprazole 30 mg capsule,delayed release(DR/EC) 30 mg PO DAILY levocetirizine 5 mg tablet 5 mg PO DAILY Trelegy Ellipta 100-62.5-25 mcg Blister With Device 1 inh INHALATION DAILY potassium chloride 20 mEq tablet,ER particles/crystals 20 meq PO DAILY famotidine 20 mg tablet 20 mg PO DAILY duloxetine 60 mg capsule,delayed release(DR/EC) 60 mg PO DAILY Eliquis 5 mg tablet 5 mg PO BID tamsulosin 0.4 mg capsule 0.4 mg PO HS fluticasone propionate 50 mcg/actuation spray,suspension 1 spray INTRANASAL DAILY Rx Instructions: 1 spray in both nostrils metoprolol tartrate 50 mg Tablet 50 mg PO BID oseltamivir [Tamiflu] 75 mg Capsule 75 mg PO BID 4 Days Qty: 7 0RF Referrals Follow up/Referrals: Stefania Pagan APRN [Primary Care Provider] - See instructions Activity Restrictions/Add. Instructions Additional Instructions/Restrictions: As we discussed please leave your Kidd until evaluated by urology. I have sent in medication to help with the bladder spasm and pain. If you have any continuing new or worsening signs or symptoms follow-up with your PCP or return to the ER as needed. Clinical Impressions Clinical Impression: BPH with urinary obstruction, Bladder outlet obstruction Instructions Patient Instructions: DI for Urinary Tract Infection (UTI), DI for Urinary Tract Infection in Children Print Language Print Language: Gu[place]ian Discharge ED Provider: Keith Davila General Adult HPI <COOPER Byrd - Last Filed: 04/09/24 21:36> General Chief complaint: Urogenital-Male Stated complaint: passing blood in urine Time Seen by Provider: 04/09/24 17:11 Mode of Arrival: Wheelchair Source of Information: Patient and Parent(s) Limitations: No Limitations Description of Symptoms (Recalled from ER Triage Doc. by RN): Per spouse patient was seen here in the ER last night due to urinary retention. Pt was diagnosed with an enlarged prostate and a bowel impaction. Pt had a kidd catheter placed and was discharged home. This morning the patient was unable to tolerate the kidd being in anymore , and the spouse states an a registered nurse who is a friend came over and removed the kidd . Pt is continuing to have very little urine output and it is red/pink in color. History of Present Illness HPI narrative: Patient presents less than 24 hours for pink-tinged urine. I saw the patient yesterday and noted that he had both constipation as well as BPH causing urinary outflow obstruction. Kidd catheter was placed and patient was discharged with follow-up with urology and disimpaction protocol. Apparently today patient did not like having the catheter and felt like it was creating more discomfort and called her friend who was a nurse who came and discontinued the catheter at his home. Since that time patient has noted that he has had pink-tinged urine however he is still peeing only small amounts and with increased frequency. Patient did have a bowel movement last night. Otherwise he has no new complaints no increasing pain fever chills hemoptysis hematochezia melena nausea vomit diarrhea. Related Data Home Medications ?Medication ?Instructions ?Recorded ?Confirmed ezetimibe 10 mg-simvastatin 40 mg 1 tab PO HS 07/11/17 03/28/24 tablet lansoprazole 30 mg capsule,delayed 30 mg PO DAILY 09/27/22 03/28/24 release levocetirizine 5 mg tablet 5 mg PO DAILY 09/27/22 03/28/24 trazodone 100 mg tablet 100 mg PO HS 09/27/22 03/29/24 fluticasone fur. 100 mcg-umeclid 1 inh inhalation DAILY 01/29/23 03/28/24 62.5 mcg-vilant 25 mcg inhalat.powder (Trelegy Ellipta) apixaban 5 mg tablet (Eliquis) 5 mg PO BID 03/28/24 03/28/24 duloxetine 60 mg capsule,delayed 60 mg PO DAILY 03/28/24 03/28/24 release famotidine 20 mg tablet 20 mg PO DAILY 03/28/24 03/28/24 fluticasone propionate 50 1 spray intranasal DAILY 03/28/24 03/28/24 mcg/actuation nasal spray,suspension potassium chloride 20 mEq 20 meq PO DAILY 03/28/24 03/28/24 tablet,extended release(part/cryst) tamsulosin 0.4 mg capsule 0.4 mg PO HS 03/28/24 03/28/24 metoprolol tartrate 50 mg tablet 50 mg PO BID 03/29/24 03/29/24 Previous Rx's ?Medication ?Instructions ?Recorded oseltamivir 75 mg capsule (Tamiflu) 75 mg PO BID 4 days #7 caps 03/29/24 oxybutynin chloride 5 mg tablet 5 mg PO BID #30 tabs 04/09/24 phenazopyridine 100 mg tablet 100 mg PO TID PRN Bladder spasm 04/09/24 (Pyridium) pain #30 tabs Allergies Allergy/AdvReac Type Severity Reaction Status Date / Time No Known Allergies Allergy Verified 01/29/23 09:39 [facility] <COOPER Byrd - Last Filed: 04/09/24 21:36> [facility] Disclaimer: The information contained in this section may have been updated after the patient was seen, as this information can be updated by other users. Medical History Stenosis of carotid artery Left carotid bruit BPH without obstruction/lower urinary tract symptoms BPH (benign prostatic hyperplasia) CALEB (renal artery stenosis) HFrEF (heart failure with reduced ejection fraction) CHF (congestive heart failure) Dyspnea HLD (hyperlipidemia) HTN (hypertension) CAD (coronary artery disease) Abdominal aortic aneurysm CKD (chronic kidney disease) Atrial fibrillation Surgical History (Updated 04/02/24 @ 00:00 by Renny Aldridge) H/O fasciotomy Family History Other No significant family history Social History Smoking Status: Current every day smoker tobacco type: cigarettes second hand exposure: No alcohol intake: never substance use type: denies use current occupational status: retired Travel in the last 8 weeks: Inside the [place] household members: spouse housing: house caffeine: Yes Have you lived/traveled outside [place] in past 30 days?: No Contact w/someone who lives/traveled outside [place] past 30 days?: No Exposure to someone with infectious disease in past 14 days?: No Do you have a fever (greater than 100.4 F or 38 C)?: No Have you tested positive for COVID-19: No Exposed to someone with COVID-19 in past 14 days?: No Do you have a sore throat?: No Do you have a cough?: No Do you have any weakness?: No Do you have any diarrhea?: No Are you experiencing any unusual bleeding?: No Do you have any muscle aches/pain?: No Do you have any abdominal pain?: No Are you experiencing loss of taste or smell?: No Other Medical History Have you received the Flu Vaccine for this season: No Have you received the Pneumonia Vaccine: No <COOPER Byrd - Last Filed: 04/09/24 21:36> ROS Obtained: Yes Systems reviewed as appropriate & no additional complaints except as documented Physical Exam <COOPER Byrd - Last Filed: 04/09/24 21:36> General General appearance: alert and in no apparent distress Respiratory Respiratory exam: Present normal lung sounds bilaterally Cardiovascular Cardiovascular exam: Present regular rate Neurological Exam Neurological exam: Present alert and oriented X3 Medical Decision Making <COOPER Byrd - Last Filed: 04/09/24 21:36> Medical Records Medical records reviewed: Yes I reviewed the patient's medical records. Screening: Per USPSTF and CDC recommendations, given the prevalence of disease in our region, it is our hospital?s policy to screen for HIV and viral Hepatitis for all patients aged 18 and over and those with ongoing risk factors. Anjel Inquiry Pt receiving controlled substance: No Vital Signs: 04/09/24 16:37 04/09/24 18:30 04/09/24 19:07 Temperature 98.6 F 98.1 F Temperature Source Oral Pulse Rate 78 75 Pulse Rate [Left] 90 Respiratory Rate 18 20 Blood Pressure 148/88 H 151/89 H Blood Pressure [Right Arm] 157/96 H Blood Pressure Mean [Right Arm] 116 Blood Pressure Source [Right Arm] Automatic Cuff Blood Pressure Position [Right Arm] Sitting 02 Sat by Pulse Oximetry 98 100 Oxygen Delivery Method Room Air Room Air Room Air Orders (Tests/Meds): ED MEDICATIONS Discontinued Medications Generic Name Dose Route Start Last Admin Trade Name Freq PRN Reason Stop Dose Admin Oxybutynin Chloride 5 mg 04/09/24 21:00 Oxybutynin 5mg Tab PO 04/09/24 21:01 ONCE ONE Oxybutynin Chloride 5 mg 04/09/24 19:14 04/09/24 19:15 Oxybutynin 5mg Tab PO 04/09/24 19:15 5 mg ONCE ONE Administration Phenazopyridine HCl 200 mg 04/09/24 18:45 04/09/24 18:59 Phenazopyridine 200mg Tablet PO 04/09/24 18:46 200 mg ONCE ONE Administration Medical Decision Narrative: In summary patient is a 83-year-old male who presents to the emergency department for evaluation of hematuria. Patient is hemodynamically stable upon arrival, afebrile. Physical exam is unremarkable nonfocal including no abdominal pain today no suprapubic tenderness normal bowel sounds. Differential diagnosis includes Kidd trauma versus cystitis versus urethral injury etc. Initial workup was considered with labs and imaging however full workup was done yesterday and there is no new symptoms that warrant reinvestigation thus it was deferred.. Initial interventions include Ditropan and Pyridium. I had a long discussion with the patient and his family regarding the risks and benefits of replacing the Kidd versus leaving it out. Ultimately I left the decision up to his patient but warned about the possibility of abrupt inability to pass urine and given that he was incompletely emptying his bladder that the risk was high for complications. Via patient directed decision making patient agreed for reinsertion of Kidd catheter. Kidd catheter was placed by nursing without difficulty with good urine return. Patient is appropriate for discharge with prescription for Pyridium and Ditropan to help with the spasm and discomfort and he will keep his scheduled followed up with urology and PCP as planned. <Keith Davila MD - Last Filed: 04/09/24 21:51> Vital Signs: 04/09/24 16:37 04/09/24 18:30 04/09/24 19:07 Temperature 98.6 F 98.1 F Temperature Source Oral Pulse Rate 78 75 Pulse Rate [Left] 90 Respiratory Rate 18 20 Blood Pressure 148/88 H 151/89 H Blood Pressure [Right Arm] 157/96 H Blood Pressure Mean [Right Arm] 116 Blood Pressure Source [Right Arm] Automatic Cuff Blood Pressure Position [Right Arm] Sitting 02 Sat by Pulse Oximetry 98 100 Oxygen Delivery Method Room Air Room Air Room Air Orders (Tests/Meds): ED MEDICATIONS Discontinued Medications Generic Name Dose Route Start Last Admin Trade Name Ivonne PRN Reason Stop Dose Admin Oxybutynin Chloride 5 mg 04/09/24 21:00 Oxybutynin 5mg Tab PO 04/09/24 21:01 ONCE ONE Oxybutynin Chloride 5 mg 04/09/24 19:14 04/09/24 19:15 Oxybutynin 5mg Tab PO 04/09/24 19:15 5 mg ONCE ONE Administration Phenazopyridine HCl 200 mg 04/09/24 18:45 04/09/24 18:59 Phenazopyridine 200mg Tablet PO 04/09/24 18:46 200 mg ONCE ONE Administration Medical Decision Narrative: In summary patient is a 83-year-old male who presents to the emergency department for evaluation of hematuria. Patient is hemodynamically stable upon arrival, afebrile. Physical exam is unremarkable nonfocal including no abdominal pain today no suprapubic tenderness normal bowel sounds. Differential diagnosis includes Kidd trauma versus cystitis versus urethral injury etc. Initial workup was considered with labs and imaging however full workup was done yesterday and there is no new symptoms that warrant reinvestigation thus it was deferred.. Initial interventions include Ditropan and Pyridium. I had a long discussion with the patient and his family regarding the risks and benefits of replacing the Kidd versus leaving it out. Ultimately I left the decision up to his patient but warned about the possibility of abrupt inability to pass urine and given that he was incompletely emptying his bladder that the risk was high for complications. Via patient directed decision making patient agreed for reinsertion of Kidd catheter. Kidd catheter was placed by nursing without difficulty with good urine return. Patient is appropriate for discharge with prescription for Pyridium and Ditropan to help with the spasm and discomfort and he will keep his scheduled followed up with urology and PCP as planned. I was consulted by the PALMIRA, and we discussed the complexity of the problems being addressed. I approved the treatment and management plan for this patient's care in the Emergency Department, thus performing a substantive portion of the medical decision making. Keith Davila MD Critical Care <COOPER Byrd - Last Filed: 04/09/24 21:36> Critical Care Time Critical Care Time: No
[2024-04-09 18:30] VITALS: BP 148/88; PULSE 78; O2SAT 100
--- NOTE | 2024-04-09 18:51 | PC.NURSE ---
ROUNDED ON THE PT. THE PT VOICES THAT HE DOES NOT NEED ANYTHING AT THIS TIME. CALL LIGHT IS WITHIN REACH OF THE PT. FAMILY MEMBERS ARE PRESENT AT THE BEDSIDE.
[2024-04-09] MEDS: PHENAZOPYRIDINE 200MG TABLET 200 MG PO (18:59)
[2024-04-09 19:07] VITALS: BP 151/89; PULSE 75; RESP 20; TEMP 36.7; O2SAT 98
[2024-04-09] MEDS: OXYBUTYNIN 5MG TAB 5 MG PO (19:15)
== END 2024-04-09 19:22 | disposition home or self-care (01) ==
PROVIDERS: Emergency Provider Emergency Medicine; PCP Nurse Practitioner Family
DX: N32.0 Bladder-neck obstruction (principal); N40.1 Benign prostatic hyperplasia with lower urinary tract symptoms; R31.9 Hematuria, unspecified; R35.0 Frequency of micturition; F17.210 Nicotine dependence, cigarettes, uncomplicated
CPT/HCPCS: 99283

== ENCOUNTER 2024-04-16 18:41 | Emergency (ER) | payer MEDICARE, BC, SELFPAY ==
[2024-04-16 18:42] VITALS: BP 145/91; PULSE 90; RESP 16; TEMP 36.6; O2SAT 99; BMI 22.1
[2024-04-16 19:00] VITALS: BP 138/78; PULSE 78; O2SAT 98
--- NOTE | 2024-04-16 19:08 | ED_ITS ---
Discharge Plan Disposition Patient Disposition: Home, Self-Care Condition: Good Prescriptions Prescriptions: New sulfamethoxazole-trimethoprim [Bactrim DS] 800-160 mg tablet 1 tab PO BID 5 Days Qty: 10 0RF No Action ezetimibe-simvastatin 10-40 mg tablet 1 tab PO HS trazodone 100 mg tablet 100 mg PO HS lansoprazole 30 mg capsule,delayed release(DR/EC) 30 mg PO DAILY levocetirizine 5 mg tablet 5 mg PO DAILY Trelegy Ellipta 100-62.5-25 mcg Blister With Device 1 inh INHALATION DAILY potassium chloride 20 mEq tablet,ER particles/crystals 20 meq PO DAILY famotidine 20 mg tablet 20 mg PO DAILY duloxetine 60 mg capsule,delayed release(DR/EC) 60 mg PO DAILY Eliquis 5 mg tablet 5 mg PO BID tamsulosin 0.4 mg capsule 0.4 mg PO HS fluticasone propionate 50 mcg/actuation spray,suspension 1 spray INTRANASAL DAILY Rx Instructions: 1 spray in both nostrils metoprolol tartrate 50 mg Tablet 50 mg PO BID oseltamivir [Tamiflu] 75 mg Capsule 75 mg PO BID 4 Days Qty: 7 0RF oxybutynin chloride 5 mg tablet 5 mg PO BID Qty: 30 0RF phenazopyridine [Pyridium] 100 mg tablet 100 mg PO TID PRN (Reason: Bladder spasm pain) Qty: 30 0RF Referrals Follow up/Referrals: Stefania Pagan APRN [Primary Care Provider] - See instructions Activity Restrictions/Add. Instructions Additional Instructions/Restrictions: Please worm picker your antibiotic and take till its all gone. Please keep appoint with urology on . If you have any new or worsening signs or symptoms return to the ER as needed. Clinical Impressions Clinical Impression: Mcnair catheter problem, BPH with urinary obstruction, Bladder outlet obstruction, Urinary tract infectious disease Instructions Patient Instructions: DI for Urinary Tract Infection (UTI), DI for Urinary Tract Infection in Children Print Language Print Language: Korean Discharge ED Provider: Sary Obrien General Adult HPI <COOPER Byrd - Last Filed: 04/16/24 19:57> General Chief complaint: Urogenital-Male Stated complaint: cath is bleeding Time Seen by Provider: 04/16/24 18:46 Mode of Arrival: Wheelchair Source of Information: Patient and Relative Limitations: No Limitations Description of Symptoms (Recalled from ER Triage Doc. by RN): c/o bleeding aroun d his catheter since yesterday, daughter reports that he woke up yesterday morning confused and was tugging on the catheter which is when the spotting of bleeding started. Daughter states that he has been more tired and sleeping t/o day which is not as normal for pt. History of Present Illness HPI narrative: Patient presents for evaluation of gross hematuria. Patient's daughter reports that patient has had periods of confusion over the past couple of days and yesterday she found that he had blood coming out around the Mcnair catheter as well as in the Mcnair catheter. He apparently had tried to pull it out. It initially hurt yesterday however he is actually back to his baseline mentation and the pain is gone but he is still having hematuria. He denies any fever chills hemoptysis hematochezia melena nausea vomit diarrhea. Related Data Home Medications ?Medication ?Instructions ?Recorded ?Confirmed ezetimibe 10 mg-simvastatin 40 mg 1 tab PO HS 07/11/17 03/28/24 tablet lansoprazole 30 mg capsule,delayed 30 mg PO DAILY 09/27/22 03/28/24 release levocetirizine 5 mg tablet 5 mg PO DAILY 09/27/22 03/28/24 trazodone 100 mg tablet 100 mg PO HS 09/27/22 03/29/24 fluticasone fur. 100 mcg-umeclid 1 inh inhalation DAILY 01/29/23 03/28/24 62.5 mcg-vilant 25 mcg inhalat.powder (Trelegy Ellipta) apixaban 5 mg tablet (Eliquis) 5 mg PO BID 03/28/24 03/28/24 duloxetine 60 mg capsule,delayed 60 mg PO DAILY 03/28/24 03/28/24 release famotidine 20 mg tablet 20 mg PO DAILY 03/28/24 03/28/24 fluticasone propionate 50 1 spray intranasal DAILY 03/28/24 03/28/24 mcg/actuation nasal spray,suspension potassium chloride 20 mEq 20 meq PO DAILY 03/28/24 03/28/24 tablet,extended release(part/cryst) tamsulosin 0.4 mg capsule 0.4 mg PO HS 03/28/24 03/28/24 metoprolol tartrate 50 mg tablet 50 mg PO BID 03/29/24 03/29/24 Previous Rx's ?Medication ?Instructions ?Recorded oseltamivir 75 mg capsule (Tamiflu) 75 mg PO BID 4 days #7 caps 03/29/24 oxybutynin chloride 5 mg tablet 5 mg PO BID #30 tabs 04/09/24 phenazopyridine 100 mg tablet 100 mg PO TID PRN Bladder spasm 04/09/24 (Pyridium) pain #30 tabs sulfamethoxazole 800 1 tab PO BID 5 days #10 tabs 04/16/24 mg-trimethoprim 160 mg tablet (Bactrim DS) Allergies Allergy/AdvReac Type Severity Reaction Status Date / Time No Known Allergies Allergy Verified 01/29/23 09:39 [facility] <COOPER Byrd - Last Filed: 04/16/24 19:57> [facility] Disclaimer: The information contained in this section may have been updated after the patient was seen, as this information can be updated by other users. Medical History Stenosis of carotid artery Left carotid bruit BPH without obstruction/lower urinary tract symptoms BPH (benign prostatic hyperplasia) CALEB (renal artery stenosis) HFrEF (heart failure with reduced ejection fraction) CHF (congestive heart failure) Dyspnea HLD (hyperlipidemia) HTN (hypertension) CAD (coronary artery disease) Abdominal aortic aneurysm CKD (chronic kidney disease) Atrial fibrillation Surgical History (Updated 04/02/24 @ 00:00 by Renny Aldridge) H/O fasciotomy Family History Other No significant family history Social History Smoking Status: Former smoker tobacco type: cigarettes second hand exposure: No alcohol intake: never substance use type: denies use current occupational status: retired Travel in the last 8 weeks: Inside the [place] household members: spouse housing: house caffeine: Yes Have you lived/traveled outside [place] in past 30 days?: No Contact w/someone who lives/traveled outside [place] past 30 days?: No Exposure to someone with infectious disease in past 14 days?: No Do you have a fever (greater than 100.4 F or 38 C)?: No Have you tested positive for COVID-19: No Exposed to someone with COVID-19 in past 14 days?: No Do you have a sore throat?: No Do you have a cough?: No Do you have any weakness?: No Do you have any diarrhea?: No Are you experiencing any unusual bleeding?: No Do you have any muscle aches/pain?: No Do you have any abdominal pain?: No Are you experiencing loss of taste or smell?: No Other Medical History Have you received the Flu Vaccine for this season: No Have you received the Pneumonia Vaccine: No <COOPER Byrd - Last Filed: 04/16/24 19:57> ROS Obtained: Yes Systems reviewed as appropriate & no additional complaints except as documented Physical Exam <COOPER Byrd - Last Filed: 04/16/24 19:57> General General appearance: alert and in no apparent distress Respiratory Respiratory exam: Present normal lung sounds bilaterally Cardiovascular Cardiovascular exam: Present regular rate Neurological Exam Neurological exam: Present alert and oriented X3 Medical Decision Making <COOPER Byrd - Last Filed: 04/16/24 19:57> Medical Records Medical records reviewed: Yes I reviewed the patient's medical records. Screening: Per USPSTF and CDC recommendations, given the prevalence of disease in our region, it is our hospital?s policy to screen for HIV and viral Hepatitis for all patients aged 18 and over and those with ongoing risk factors. Anjel Inquiry Pt receiving controlled substance: No Vital Signs: 04/16/24 18:42 04/16/24 19:00 04/16/24 20:43 Temperature 97.8 F 97.9 F Temperature Source Oral Oral Pulse Rate 78 63 Pulse Rate [Left Radial] 90 Respiratory Rate 16 20 Blood Pressure 138/78 137/82 Blood Pressure [Right Arm] 145/91 H Blood Pressure Mean [Right Arm] 109 Blood Pressure Source Automatic Cuff Blood Pressure Position Supine 02 Sat by Pulse Oximetry 99 98 96 Oxygen Delivery Method Room Air Room Air Room Air 04/16/24 20:44 Temperature 97.9 F Temperature Source Oral Pulse Rate 63 Pulse Rate [Left Radial] Respiratory Rate 20 Blood Pressure 137/82 Blood Pressure [Right Arm] Blood Pressure Mean [Right Arm] Blood Pressure Source Blood Pressure Position 02 Sat by Pulse Oximetry Oxygen Delivery Method Room Air Lab Data Lab results reviewed: Yes I reviewed the patient's lab results. Lab Results 04/16/24 19:43: Urine Color Red, Urine Appearance Cloudy, Urine pH 6.5, Ur Specific [place] 1.020, Urine Protein 2+ A, Urine Glucose (UA) Negative, Urine Ketones Trace, Urine Blood 3+ A, Urine Nitrate Positive A, Urine Bilirubin Negative, Urine Urobilinogen 2.0, Ur Leukocyte Esterase 2+ A, Urine RBC Tntc, Urine WBC 5-10, Ur Squamous Epith Cells 3-5, Urine Bacteria 1+ Orders (Tests/Meds): ED MEDICATIONS Discontinued Medications Generic Name Dose Route Start Last Admin Trade Name Freq PRN Reason Stop Dose Admin Trimethoprim/Sulfamethoxazole 1 each 04/16/24 19:57 04/16/24 20:22 Sulfa/Trimethoprim 1 Tablet PO 04/16/24 19:58 1 each ONCE ONE Administration ORDERS Category Date Time Status Urinalysis and Microscopic Stat Lab 04/16/24 19:43 Completed Urine Culture Stat Micro 04/16/24 19:43 Received Medical Decision Narrative: In summary patient is a 83-year-old male who presents to the emergency department for evaluation of Mcnair catheter problem. Patient is hemodynamically stable upon arrival, afebrile. Physical exam is remarkable for actual dried blood at the meatus as well as gross hematuria in the Mcnair bag in the Mcnair catheter currently. I attempted see if I could reposition the Mcnair catheter at all and I met resistance thus I ceased efforts patient has no suprapubic tenderness normal bowel sounds Alejandra Coma Score 15 he is awake alert and oriented person place and circumstance.. Differential diagnosis includes urethral trauma versus bladder bleeding etc. Initial workup will be conducted with urinalysis with culture.. Initial interventions Mcnair exchange. Initial workup reviewed by me [hematologic labs are remarkable for... Imaging remarkable for... Urinalysis remarkable for]. I personally took down the Mcnair balloon and the catheter slid out easily. He did have some nonclotting blood in the Mcnair catheter and immediately after removal some from the meatus however it stopped. Then under sterile preparation in the normal fashion I reinserted the Mcnair catheter personally met no resistance and easily cannulated the bladder at which point I had very thick nonclotting blood. I then deflated 10 cc and advanced the balloon to the anterior bladder wall. Patient tolerated the procedure well without complication. I then had a shared decision-making discussion with the family regarding treatment of a urinary tract infection as he has some evidence that he might be having some encephalopathy associated as well as an indwelling Mcnair catheter will go ahead and start the patient on prophylactic antibiotics and will tailor based on your speciation but they do not need to wait for the actual UA results. Family was agreeable with this plan and plan to follow-up with urology as scheduled on . Thus patient is appropriate for discharge with a prescription for Bactrim with first dose given here and urology follow-up on and strict return precautions. <Sary Obrien, DO - Last Filed: 04/16/24 21:05> Vital Signs: 04/16/24 18:42 04/16/24 19:00 04/16/24 20:43 Temperature 97.8 F 97.9 F Temperature Source Oral Oral Pulse Rate 78 63 Pulse Rate [Left Radial] 90 Respiratory Rate 16 20 Blood Pressure 138/78 137/82 Blood Pressure [Right Arm] 145/91 H Blood Pressure Mean [Right Arm] 109 Blood Pressure Source Automatic Cuff Blood Pressure Position Supine 02 Sat by Pulse Oximetry 99 98 96 Oxygen Delivery Method Room Air Room Air Room Air 04/16/24 20:44 Temperature 97.9 F Temperature Source Oral Pulse Rate 63 Pulse Rate [Left Radial] Respiratory Rate 20 Blood Pressure 137/82 Blood Pressure [Right Arm] Blood Pressure Mean [Right Arm] Blood Pressure Source Blood Pressure Position 02 Sat by Pulse Oximetry Oxygen Delivery Method Room Air Lab Data Lab Results 04/16/24 19:43: Urine Color Red, Urine Appearance Cloudy, Urine pH 6.5, Ur Specific [place] 1.020, Urine Protein 2+ A, Urine Glucose (UA) Negative, Urine Ketones Trace, Urine Blood 3+ A, Urine Nitrate Positive A, Urine Bilirubin Negative, Urine Urobilinogen 2.0, Ur Leukocyte Esterase 2+ A, Urine RBC Tntc, Urine WBC 5-10, Ur Squamous Epith Cells 3-5, Urine Bacteria 1+ Orders (Tests/Meds): ED MEDICATIONS Discontinued Medications Generic Name Dose Route Start Last Admin Trade Name Freq PRN Reason Stop Dose Admin Trimethoprim/Sulfamethoxazole 1 each 04/16/24 19:57 04/16/24 20:22 Sulfa/Trimethoprim 1 Tablet PO 04/16/24 19:58 1 each ONCE ONE Administration ORDERS Category Date Time Status Urinalysis and Microscopic Stat Lab 04/16/24 19:43 Completed Urine Culture Stat Micro 04/16/24 19:43 Received Medical Decision Narrative: In summary patient is a 83-year-old male who presents to the emergency department for evaluation of Mcnair catheter problem. Patient is hemodynamically stable upon arrival, afebrile. Physical exam is remarkable for actual dried blood at the meatus as well as gross hematuria in the Mcnair bag in the Mcnair catheter currently. I attempted see if I could reposition the Mcnair catheter at all and I met resistance thus I ceased efforts patient has no suprapubic tenderness normal bowel sounds Alejandra Coma Score 15 he is awake alert and oriented person place and circumstance.. Differential diagnosis includes urethral trauma versus bladder bleeding etc. Initial workup will be conducted with urinalysis with culture.. Initial interventions Mcnair exchange. Initial workup reviewed by me . I personally took down the Mcnair balloon and the catheter slid out easily. He did have some nonclotting blood in the Mcnair catheter and immediately after removal some from the meatus however it stopped. Then under sterile preparation in the normal fashion I reinserted the Mcnair catheter personally met no resistance and easily cannulated the bladder at which point I had very thick nonclotting blood. I then deflated 10 cc and advanced the balloon to the anterior bladder wall. Patient tolerated the procedure well without complication. I then had a shared decision-making discussion with the family regarding treatment of a urinary tract infection as he has some evidence that he might be having some encephalopathy associated as well as an indwelling Mcnair catheter will go ahead and start the patient on prophylactic antibiotics and will tailor based on your speciation but they do not need to wait for the actual UA results. Family was agreeable with this plan and plan to follow-up with urology as scheduled on . Thus patient is appropriate for discharge with a prescription for Bactrim with first dose given here and urology follow-up on and strict return precautions. DO Micah: I was consulted by the PALMIRA, and we discussed the complexity of the problems being addressed. I approved the treatment and management plan for this patient's care in the emergency department, thus performing a substantive portion of the medical decision making. Sary Obrien DO Critical Care <COOPER Byrd - Last Filed: 04/16/24 19:57> Critical Care Time Critical Care Time: No
--- NOTE | 2024-04-16 19:16 | PC.NURSE ---
rounded on pt at this time. family in bedside. ice water given to pt. call light in reach
--- NOTE | 2024-04-16 19:46 | PC.NURSE ---
Kidd cath change per Lobito GAMBOA. This RN irrigates kidd with approx 20ml NS to get red tinged urine. Pt reports the urge to pee, line cleard of NS flush and then clamped to collect urine to send to lab.
[2024-04-16 19:49] LABS: Microscopic, Urine URINE MICROSCOPIC (MICROSCOPIC)
[2024-04-16 19:53] LABS: Bilirubin,Urine Negative (Negative); Blood, Urine 3+ (Negative); Glucose,Urine (UA) Negative (Negative); Ketones,Urine TRACE (Negative); Leukocyte Esterase,Urine 2+ (Negative); Nitrate,Urine POSITIVE (Negative); PH,Urine 6.5 (5.0-8.5); Protein,Urine 2+ (Negative)
[2024-04-16 20:02] LABS: Appearance,Urine Cloudy (Clear); Color,Urine Red (Yellow)
[2024-04-16 20:19] LABS: Bacteria,Urine 1+ /lpf; RBC,Urine TNTC #/hpf (0-3)
[2024-04-16] MEDS: SULFA/TRIMETHOPRIM 1 TABLET 1 EACH PO (20:22)
[2024-04-16 20:43] VITALS: BP 137/82; PULSE 63; RESP 20; TEMP 36.6; O2SAT 96
[2024-04-16 20:44] VITALS: BP 137/82; PULSE 63; RESP 20; TEMP 36.6; O2SAT 96
== END 2024-04-16 20:44 | disposition home or self-care (01) ==
PROVIDERS: Physician Assistant; Emergency Provider Emergency Medicine; PCP Nurse Practitioner Family
DX: N39.0 Urinary tract infection, site not specified (principal); N32.0 Bladder-neck obstruction; N40.1 Benign prostatic hyperplasia with lower urinary tract symptoms; T83.9XXA Unspecified complication of genitourinary prosthetic device, implant and graft, initial encounter; R41.82 Altered mental status, unspecified; R31.0 Gross hematuria; R53.83 Other fatigue
CPT/HCPCS: 81001; 87086; 99283

== ENCOUNTER 2024-04-29 19:10 | Emergency (ER) | payer MEDICARE, BC, SELFPAY ==
[2024-04-29 19:14] VITALS: BP 126/68; PULSE 63; RESP 18; TEMP 36.8; O2SAT 99; BMI 24.9
--- NOTE | 2024-04-29 19:25 | ED_ITS ---
<Statement entered by Sary Obrien DO - 04/29/24 23:30> I was consulted by the PALMIRA, and we discussed the complexity of the problems being addressed. I approved the treatment and management plan for this patient's care in the emergency department, thus performing a substantive portion of the medical decision making. Sary Obrien DO Discharge Plan Disposition Patient Disposition: Home, Self-Care Condition: Good Prescriptions Prescriptions: No Action ezetimibe-simvastatin 10-40 mg tablet 1 tab PO HS trazodone 100 mg tablet 100 mg PO HS lansoprazole 30 mg capsule,delayed release(DR/EC) 30 mg PO DAILY levocetirizine 5 mg tablet 5 mg PO DAILY Trelegy Ellipta 100-62.5-25 mcg Blister With Device 1 inh INHALATION DAILY potassium chloride 20 mEq tablet,ER particles/crystals 20 meq PO DAILY famotidine 20 mg tablet 20 mg PO DAILY duloxetine 60 mg capsule,delayed release(DR/EC) 60 mg PO DAILY Eliquis 5 mg tablet 5 mg PO BID tamsulosin 0.4 mg capsule 0.4 mg PO HS fluticasone propionate 50 mcg/actuation spray,suspension 1 spray INTRANASAL DAILY Rx Instructions: 1 spray in both nostrils metoprolol tartrate 50 mg Tablet 50 mg PO BID dutasteride 0.5 mg Capsule 0.5 mg PO DAILY Referrals Follow up/Referrals: Stefania Pagan APRN [Primary Care Provider] - See instructions Activity Restrictions/Add. Instructions Additional Instructions/Restrictions: As we discussed follow-up with urology as scheduled. If you have any new continuing or worsening signs or symptoms follow-up with your PCP or return to the ER as needed. Clinical Impressions Clinical Impression: Bladder outlet obstruction, BPH with urinary obstruction Instructions Patient Instructions: DI for Urinary Tract Infection (UTI), DI for Urinary Tract Infection in Children Print Language Print Language: Frisian Discharge ED Provider: Sary Obrien General Adult HPI General Chief complaint: Urogenital-Male Stated complaint: unable to urinate Time Seen by Provider: 04/29/24 19:25 Mode of Arrival: Wheelchair Source of Information: Patient and Relative Description of Symptoms (Recalled from ER Triage Doc. by RN): Pt presents for evaluation of urinary retention. Per spouse urinal was last emptied at 0900 today. since then patient has only voided 200-300mL History of Present Illness HPI narrative: Patient presents for evaluation of urinary retention. I have seen Mr. Rodríguez several times over the last month for BPH induced bladder outlet obstruction. He is also had a UTI in that interval. Those symptoms are gone and he has since followed up with urology. Patient is currently on 6 weeks of medication therapy as he was offered surgery or permanent catheter placement and patient elected for the middle road. His Mcnair catheter was taken out last week and initially the patient did well however over the weekend he has had increasing abdominal discomfort and decreased urination. Patient denies fever chest pain hemoptysis hematochezia melena or dysuria but just reports lower abdominal tenderness. Related Data Home Medications ?Medication ?Instructions ?Recorded ?Confirmed ezetimibe 10 mg-simvastatin 40 mg 1 tab PO HS 07/11/17 04/29/24 tablet lansoprazole 30 mg capsule,delayed 30 mg PO DAILY 09/27/22 04/29/24 release levocetirizine 5 mg tablet 5 mg PO DAILY 09/27/22 04/29/24 trazodone 100 mg tablet 100 mg PO HS 09/27/22 04/29/24 fluticasone fur. 100 mcg-umeclid 1 inh inhalation DAILY 01/29/23 04/29/24 62.5 mcg-vilant 25 mcg inhalat.powder (Trelegy Ellipta) apixaban 5 mg tablet (Eliquis) 5 mg PO BID 03/28/24 04/29/24 duloxetine 60 mg capsule,delayed 60 mg PO DAILY 03/28/24 04/29/24 release famotidine 20 mg tablet 20 mg PO DAILY 03/28/24 04/29/24 fluticasone propionate 50 1 spray intranasal DAILY 03/28/24 04/29/24 mcg/actuation nasal spray,suspension potassium chloride 20 mEq 20 meq PO DAILY 03/28/24 04/29/24 tablet,extended release(part/cryst) tamsulosin 0.4 mg capsule 0.4 mg PO HS 03/28/24 04/29/24 metoprolol tartrate 50 mg tablet 50 mg PO BID 03/29/24 04/29/24 dutasteride 0.5 mg capsule 0.5 mg PO DAILY 04/29/24 04/29/24 Allergies Allergy/AdvReac Type Severity Reaction Status Date / Time No Known Allergies Allergy Verified 04/29/24 19:18 [facility] Disclaimer: The information contained in this section may have been updated after the patient was seen, as this information can be updated by other users. Medical History Stenosis of carotid artery Left carotid bruit BPH without obstruction/lower urinary tract symptoms BPH (benign prostatic hyperplasia) CALEB (renal artery stenosis) HFrEF (heart failure with reduced ejection fraction) CHF (congestive heart failure) Dyspnea HLD (hyperlipidemia) HTN (hypertension) CAD (coronary artery disease) Abdominal aortic aneurysm CKD (chronic kidney disease) Atrial fibrillation Surgical History H/O fasciotomy Family History Other No significant family history Social History Smoking Status: Current every day smoker tobacco type: cigarettes second hand exposure: No alcohol intake: never substance use type: denies use current occupational status: retired Travel in the last 8 weeks: Inside the [place] household members: spouse housing: house caffeine: Yes Have you lived/traveled outside US in past 30 days?: No Contact w/someone who lives/traveled outside US past 30 days?: No Exposure to someone with infectious disease in past 14 days?: No Do you have a fever (greater than 100.4 F or 38 C)?: No Have you tested positive for COVID-19: No Exposed to someone with COVID-19 in past 14 days?: No Do you have a sore throat?: No Do you have a cough?: No Do you have any weakness?: No Do you have any diarrhea?: No Are you experiencing any unusual bleeding?: No Do you have any muscle aches/pain?: No Do you have any abdominal pain?: No Are you experiencing loss of taste or smell?: No Other Medical History Have you received the Flu Vaccine for this season: No Have you received the Pneumonia Vaccine: No ROS Obtained: Yes Systems reviewed as appropriate & no additional complaints except as documented Physical Exam General General appearance: alert Respiratory Respiratory exam: Present normal lung sounds bilaterally Cardiovascular Cardiovascular exam: Present regular rate Neurological Exam Neurological exam: Present alert and oriented X3 Medical Decision Making Medical Records Medical records reviewed: Yes I reviewed the patient's medical records. Screening: Per USPSTF and CDC recommendations, given the prevalence of disease in our region, it is our hospital?s policy to screen for HIV and viral Hepatitis for all patients aged 18 and over and those with ongoing risk factors. Anjel Inquiry Pt receiving controlled substance: No Vital Signs: 04/29/24 19:14 04/29/24 19:30 04/29/24 20:34 Temperature 98.2 F 97.0 F L Temperature Source Oral Pulse Rate 84 72 Pulse Rate [Right] 63 Respiratory Rate 18 20 Blood Pressure 135/64 135/64 Blood Pressure [Right Arm] 126/68 Blood Pressure Mean [Right Arm] 87 Blood Pressure Source [Right Arm] Automatic Cuff Blood Pressure Position [Right Arm] Sitting 02 Sat by Pulse Oximetry 99 98 Oxygen Delivery Method Room Air Room Air Lab Data Lab Results 04/29/24 19:40: Urine Color Dark yellow, Urine Appearance Clear, Urine pH 5.5, Ur Specific [place] 1.030, Urine Protein Trace A, Urine Glucose (UA) Negative, Urine Ketones Negative, Urine Blood Trace A, Urine Nitrate Negative, Urine Bilirubin Trace, Urine Urobilinogen 1.0, Ur Leukocyte Esterase Negative, Urine RBC Occasional, Urine WBC 5-10, Ur Squamous Epith Cells None, Urine Bacteria Trace, Urine Mucus 3+ Orders (Tests/Meds): ORDERS Category Date Time Status Urinalysis and Microscopic Stat Lab 04/29/24 19:40 Completed Medical Decision Narrative: In summary patient is a 83-year-old male who presents to the emergency department for evaluation of bladder outlet obstruction and acute urinary retent ion. Patient is hemodynamically stable upon arrival, afebrile. Physical exam is remarkable for suprapubic discomfort on palpation but no rebound no guarding no rigidity bowel sounds normal active. Differential diagnosis includes urinary tract infection versus worsening BPH versus acute urinary retention. Initial workup was considered with labs and imaging however patient has no red flags today to indicate anything other than his known BPH with bladder outlet obstruction so GUSTAFSON was deferred that for urinalysis. Initial interventions include Mcnair catheter placement and urinalysis. Initial workup reviewed by me Mcnair catheter was placed with ease however he only had 50 cc of urine after Mcnair catheter placement. Urinalysis was bland however. Upon repeat evaluation patient reported symptomatic improvement after Mcnair catheter placement. Given this patient is appropriate for discharge with recommendations to leave the Mcnair catheter in place until he is seen by urology again and close follow-up with urology for any continued new or worsening signs or symptoms or to return to the ER as needed. Critical Care Critical Care Time Critical Care Time: No
[2024-04-29 19:30] VITALS: BP 135/64; PULSE 84; O2SAT 98
[2024-04-29 19:46] LABS: Microscopic, Urine URINE MICROSCOPIC (MICROSCOPIC)
[2024-04-29 20:23] LABS: Appearance,Urine Clear (Clear); Color,Urine Dark Yellow (Yellow); PH,Urine 5.5 (5.0-8.5); Protein,Urine Trace (Negative)
[2024-04-29 20:24] LABS: Bacteria,Urine Trace /lpf; Bilirubin,Urine Trace (Negative); Blood, Urine Trace (Negative); Glucose,Urine (UA) Negative (Negative); Ketones,Urine Negative (Negative); Leukocyte Esterase,Urine Negative (Negative); Mucus,Urine 3+ /lpf; Nitrate,Urine Negative (Negative); RBC,Urine Occasional #/hpf (0-3)
[2024-04-29 20:34] VITALS: BP 135/64; PULSE 72; RESP 20; TEMP 36.1; O2SAT 98
== END 2024-04-29 20:39 | disposition home or self-care (01) ==
PROVIDERS: Physician Assistant; Emergency Provider Emergency Medicine; PCP Nurse Practitioner Family
DX: N32.0 Bladder-neck obstruction (principal); N40.1 Benign prostatic hyperplasia with lower urinary tract symptoms; R33.9 Retention of urine, unspecified; R10.30 Lower abdominal pain, unspecified; F17.210 Nicotine dependence, cigarettes, uncomplicated
CPT/HCPCS: 51702; 81001; 99283

== ENCOUNTER 2024-05-02 18:46 | Emergency (ER) | payer MEDICARE, BC, SELFPAY ==
[2024-05-02 19:36] VITALS: BP 150/83; PULSE 86; RESP 20; TEMP 36.7; O2SAT 98; BMI 24.1
[2024-05-02] MEDS: IBUPROFEN 600 MG TABLET PO (20:01)
[2024-05-02] MEDS: ACETAMINOPHEN 500MG TAB 1000 MG PO (20:01)
[2024-05-02] MEDS: LIDOCAINE 2% UROJET 10ML TP (20:02)
--- NOTE | 2024-05-02 20:10 | PC.NURSE ---
16F coude kidd cath placed per technical staff assistant. Yellow urine produced. Pt tolerated well.
--- NOTE | 2024-05-02 20:33 | HMH.EDGENADL ---
Discharge Plan Disposition Patient Disposition: Home, Self-Care Chief Complaint: Urogenital-Male Prescriptions Prescriptions: No Action ezetimibe-simvastatin 10-40 mg tablet 1 tab PO HS trazodone 100 mg tablet 100 mg PO HS lansoprazole 30 mg capsule,delayed release(DR/EC) 30 mg PO DAILY levocetirizine 5 mg tablet 5 mg PO DAILY Trelegy Ellipta 100-62.5-25 mcg Blister With Device 1 inh INHALATION DAILY potassium chloride 20 mEq tablet,ER particles/crystals 20 meq PO DAILY famotidine 20 mg tablet 20 mg PO DAILY duloxetine 60 mg capsule,delayed release(DR/EC) 60 mg PO DAILY Eliquis 5 mg tablet 5 mg PO BID tamsulosin 0.4 mg capsule 0.4 mg PO HS fluticasone propionate 50 mcg/actuation spray,suspension 1 spray INTRANASAL DAILY Rx Instructions: 1 spray in both nostrils metoprolol tartrate 50 mg Tablet 50 mg PO BID dutasteride 0.5 mg Capsule 0.5 mg PO DAILY Referrals Follow up/Referrals: Stefania Pagan APRN [Primary Care Provider] - See instructions Activity Restrictions/Add. Instructions Additional Instructions/Restrictions: Follow-up with family doctor and urology as needed for this visit to the emergency department. Clinical Impressions Clinical Impression: Urinary catheter complication Instructions Patient Instructions: DI for Urinary Tract Infection (UTI), DI for Urinary Tract Infection in Children Print Language Print Language: Ukrainian Discharge ED Provider: Keith Davila General Adult HPI General Chief complaint: Urogenital-Male Stated complaint: F/C leaking Time Seen by Provider: 05/02/24 19:30 Mode of Arrival: Wheelchair Source of Information: Patient and Relative Description of Symptoms (Recalled from ER Triage Doc. by RN): pt and family report he is having some leaking around his kidd cath that was placed monday. pt reports he does have burning when he feels like he is urinating History of Present Illness HPI narrative: Please note that above description of symptoms, in this electronic medical record under categorization of recalled from ER triage doctor by RN are reflective of an initial nursing assessment, however, is not reflective of my full history and physical exam that was personally taken and clarified. Consequentially, this preceding description of symptoms, which may include the patient's categorized chief complaint in the EMR, do not reflect my personal clinical impression, and the ultimate description of history of present illness and patient stated complaints should be deferred to this section of the note. Unless stated otherwise or congruent with this section of the note, additional signs, symptoms, or incongruence should be interpreted as inaccurate with my clinical impression. Related Data Home Medications ?Medication ?Instructions ?Recorded ?Confirmed ezetimibe 10 mg-simvastatin 40 mg 1 tab PO HS 07/11/17 04/29/24 tablet lansoprazole 30 mg capsule,delayed 30 mg PO DAILY 09/27/22 04/29/24 release levocetirizine 5 mg tablet 5 mg PO DAILY 09/27/22 04/29/24 trazodone 100 mg tablet 100 mg PO HS 09/27/22 04/29/24 fluticasone fur. 100 mcg-umeclid 1 inh inhalation DAILY 01/29/23 04/29/24 62.5 mcg-vilant 25 mcg inhalat.powder (Trelegy Ellipta) apixaban 5 mg tablet (Eliquis) 5 mg PO BID 03/28/24 04/29/24 duloxetine 60 mg capsule,delayed 60 mg PO DAILY 03/28/24 04/29/24 release famotidine 20 mg tablet 20 mg PO DAILY 03/28/24 04/29/24 fluticasone propionate 50 1 spray intranasal DAILY 03/28/24 04/29/24 mcg/actuation nasal spray,suspension potassium chloride 20 mEq 20 meq PO DAILY 03/28/24 04/29/24 tablet,extended release(part/cryst) tamsulosin 0.4 mg capsule 0.4 mg PO HS 03/28/24 04/29/24 metoprolol tartrate 50 mg tablet 50 mg PO BID 03/29/24 04/29/24 dutasteride 0.5 mg capsule 0.5 mg PO DAILY 04/29/24 04/29/24 Allergies Allergy/AdvReac Type Severity Reaction Status Date / Time No Known Allergies Allergy Verified 04/29/24 19:18 [facility] Disclaimer: The information contained in this section may have been updated after the patient was seen, as this information can be updated by other users. Medical History Stenosis of carotid artery Left carotid bruit BPH without obstruction/lower urinary tract symptoms BPH (benign prostatic hyperplasia) CALEB (renal artery stenosis) HFrEF (heart failure with reduced ejection fraction) CHF (congestive heart failure) Dyspnea HLD (hyperlipidemia) HTN (hypertension) CAD (coronary artery disease) Abdominal aortic aneurysm CKD (chronic kidney disease) Atrial fibrillation Surgical History H/O fasciotomy Family History Other No significant family history Social History Smoking Status: Current every day smoker tobacco type: cigarettes second hand exposure: No alcohol intake: never substance use type: denies use current occupational status: retired Travel in the last 8 weeks: [place] the [place] household members: spouse housing: house caffeine: Yes Have you lived/traveled outside US in past 30 days?: No Contact w/someone who lives/traveled outside US past 30 days?: No Exposure to someone with infectious disease in past 14 days?: No Do you have a fever (greater than 100.4 F or 38 C)?: No Have you tested positive for COVID-19: No Exposed to someone with COVID-19 in past 14 days?: No Do you have a sore throat?: No Do you have a cough?: No Do you have any weakness?: No Do you have any diarrhea?: No Are you experiencing any unusual bleeding?: No Do you have any muscle aches/pain?: No Do you have any abdominal pain?: No Are you experiencing loss of taste or smell?: No Other Medical History Have you received the Flu Vaccine for this season: No Have you received the Pneumonia Vaccine: No ROS Obtained: Yes All systems reviewed & no additional complaints except as documented Physical Exam General General appearance: alert Head Head exam: atraumatic and normocephalic Eye Eye exam: Present normal appearance, PERRL and EOMI Neck Neck exam: Present normal inspection, full ROM and trachea midline Respiratory Respiratory exam: Absent respiratory distress, wheezes, stridor, accessory muscle use or prolonged expiratory phase Cardiovascular Cardiovascular exam: Present other (Pulses equal symmetric in upper and lower extremities) Abdominal Exam Abdominal exam: Present soft; Absent distention, tenderness or pulsatile mass Extremities Exam Extremities exam: Absent edema Neurological Exam Neurological exam: Present alert, oriented X3 and CN II-XII intact; Absent motor sensory deficit Skin Skin exam: Present warm and dry; Absent diaphoresis or erythema Medical Decision Making Medical Records Medical records reviewed: Yes I reviewed the patient's medical records. Screening: Per USPSTF and CDC recommendations, given the prevalence of disease in our region, it is our hospital?s policy to screen for HIV and viral Hepatitis for all patients aged 18 and over and those with ongoing risk factors. Anjel Inquiry Pt receiving controlled substance: No Anjel was queried for this patient: No Vital Signs: 05/02/24 19:36 Temperature 98.0 F Temperature Source Oral Pulse Rate [Right] 86 Respiratory Rate 20 Blood Pressure [Right Arm] 150/83 H Blood Pressure Mean [Right Arm] 105 02 Sat by Pulse Oximetry 98 Oxygen Delivery Method Room Air Orders (Tests/Meds): ED MEDICATIONS Discontinued Medications Generic Name Dose Route Start Last Admin Trade Name Freq PRN Reason Stop Dose Admin Acetaminophen 1,000 mg 05/02/24 19:45 05/02/24 20:01 Acetaminophen 500mg Tab PO 05/02/24 19:46 1,000 mg ONCE ONE Administration Ibuprofen 600 mg 05/02/24 19:45 05/02/24 20:01 Ibuprofen 600 Mg Tablet PO 05/02/24 19:46 600 mg ONCE ONE Administration Lidocaine HCl 1 ml 05/02/24 19:59 05/02/24 20:02 Lidocaine 2% Urojet 10ml TP 05/02/24 20:00 1 ml ONCE ONE Administration Medical Decision Narrative: 83-year-old male presenting with catheter dysfunction. Patient states that he had a urinary catheter placed recently here at [facility] starting today, he started having leaking around it. Does not believe that he pulled on it, but may have. States that he does have some urethral tenderness and burning, but otherwise no symptoms. No suprapubic tenderness, no gross blood. States that he does not have similar symptoms as what he has when he has urinary tract infections. History obtained the patient and family. On arrival, chronically ill, but no acute distress and not acutely ill. Abdomen soft, nontender, nondistended. He does have redness at the urethral meatus, but no evidence of drainage or purulence. Catheter in place and dark urine, but not cloudy urine with sediment. Labs were considered, but not deemed necessary as patient is not having any urinary symptoms, no systemic signs or symptoms, no delirium as he typically has with urinary tract infections. Catheter to be exchanged with 16 [place] coud?. Because patient at baseline without signs or symptoms of clinical decompensation, deemed appropriate for discharge. I discussed my clinical impression with patient and answered all questions. At this time, the evidence for any other entities in the differential is insufficient to warrant any further testing or ED observation. This was explained as well. Advisory was given that persistent or worsening symptoms require further evaluation. I confirmed the understanding of this discussion. Brush Finisher disclaimer Much of this encounter note is an electronic speech scientist spoken language to printed text. Electronic speech scientist of the spoken language may permit errors. Although I have reviewed the note, some errors may still exist. Critical Care Critical Care Time Critical Care Time: No
[2024-05-02 20:50] VITALS: BP 156/78; PULSE 78; RESP 20; TEMP 36.9; O2SAT 98
== END 2024-05-02 20:51 | disposition home or self-care (01) ==
PROVIDERS: Emergency Provider Emergency Medicine; PCP Nurse Practitioner Family
DX: T83.031A Leakage of indwelling urethral catheter, initial encounter (principal); R30.0 Dysuria
CPT/HCPCS: 51702; 99282

== ENCOUNTER 2024-05-19 14:38 | Inpatient (IN) | payer MEDICARE, BC, SELFPAY ==
[2024-05-19] VITALS (11 sets, daily range): BP systolic 125–166; BP diastolic 62–90; PULSE 62–97; RESP 16–32; TEMP 36.9–37.1; O2SAT 91–97; BMI 24.7; BMI 23.9
--- NOTE | 2024-05-19 14:34 | ECG_ITS ---
APPROVED REPORT Exam: Resting ECG HR:77 bpm ECG Measurements Heart Rate 77 AXES QRSd 100 QRS 2 QT 389 T 0 QTc 421 Conclusion ATRIAL FIBRILLATION INFERIOR MYOCARDIAL INFARCTION , PROBABLY OLD [40+ ms Q WAVE AND/OR ST/T ABNORMALITY IN II/aVF] ABNORMAL ECG No STEMI Electronically signed by : CHINO BETTENCOURT, 05/20/2024 00:27:55
--- NOTE | 2024-05-19 15:34 | XR_ITS ---
PROCEDURE INFORMATION: Exam: XR Chest Exam date and time: 05/19/2024 3:58 PM Age: 83 years old Clinical indication: Cough; Additional info: Cough, R sided wheeze TECHNIQUE: Imaging protocol: Radiologic exam of the chest. Views: 1 view. Total images: 2 COMPARISON: CT ANGIO CHEST PE PROTOCOL 03/28/2024 2:15 PM FINDINGS: Lungs: Atelectatic and/or early infiltrative changes noted within the right lower lobe. Bilateral hyperinflation is present. Pleural spaces: Right costophrenic angle is not included on the study. No evidence of left pleural effusion. Heart/Mediastinum: The heart is not enlarged. Vasculature: Moderate atherosclerotic disease. Bones/joints: There is evidence of prior median sternotomy. The thoracic spine demonstrates mild degenerative changes at multiple levels. Degenerative changes of the glenohumeral and acromioclavicular joints. IMPRESSION: 1. Atelectatic and/or early infiltrative changes noted within the right lower lobe. 2. Bilateral hyperinflation is present.
--- NOTE | 2024-05-19 15:37 | ED_ITS ---
Discharge Plan Disposition Patient Disposition: Admitted Condition: Fair Clinical Impressions Clinical Impression: Acute exacerbation of chronic obstructive pulmonary disease, Acute non-ST elevation myocardial infarction (NSTEMI) Discharge ED Provider: Liu Brice General Chief Complaint: Shortness of Breath/Dyspnea Stated Complaint: soa Time Seen by Provider: 05/19/24 15:15 Mode of Arrival: EMS Source of Information: Patient and EMS Description of Symptoms (Recalled from ER Triage Doc. by RN): Patient presents to ED via [facility] with SOA. patient states he has been SOA for 2 days. Pt reports he does not wear O2 at home. EMS reports placed pt on 4L O2 in route and pt was 98%, RA sat on arrival is 97%. Patient reports no pain. History of Present Illness HPI narrative: Patient is an 83-year-old male past medical history of hypertension, hyperlipidemia, coronary artery disease status post CABG, CKD, A-fib, heart failure, right lower extremity partial amputation, COPD not on home oxygen compliant with chronic therapy who presents emergency department for evaluation of cough and shortness of breath. Onset was acute, over the last 2 or 3 days. No chest pain, no abdominal pain, no other acute complaints. He presents mainly for shortness of breath and cough. Please note that above description of symptoms, in this electronic medical record under categorization of recalled from ER triage doctor by RN are reflective of an initial nursing assessment, however, is not reflective of my full history and physical exam that was personally taken and clarified. Consequentially, this preceding description of symptoms, which may include the patient's categorized chief complaint in the EMR, do not reflect my personal clinical impression, and the ultimate description of history of present illness and patient stated complaints should be deferred to this section of the note. Unless stated otherwise or congruent with this section of the note, additional signs, symptoms, or incongruence should be interpreted as inaccurate with my clinical impression. Related Data Home Medications ?Medication ?Instructions ?Recorded ?Confirmed ezetimibe 10 mg-simvastatin 40 mg 1 tab PO HS 07/11/17 05/19/24 tablet lansoprazole 30 mg capsule,delayed 30 mg PO DAILY 09/27/22 05/19/24 release levocetirizine 5 mg tablet 5 mg PO DAILY 09/27/22 05/19/24 trazodone 100 mg tablet 100 mg PO HS 09/27/22 05/19/24 fluticasone fur. 100 mcg-umeclid 1 inh inhalation DAILY 01/29/23 05/19/24 62.5 mcg-vilant 25 mcg inhalat.powder (Trelegy Ellipta) apixaban 5 mg tablet (Eliquis) 5 mg PO BID 03/28/24 05/19/24 duloxetine 60 mg capsule,delayed 60 mg PO DAILY 03/28/24 05/19/24 release famotidine 20 mg tablet 20 mg PO DAILY 03/28/24 05/19/24 fluticasone propionate 50 1 spray intranasal DAILY 03/28/24 05/19/24 mcg/actuation nasal spray,suspension potassium chloride 20 mEq 20 meq PO DAILY 03/28/24 05/19/24 tablet,extended release(part/cryst) tamsulosin 0.4 mg capsule 0.4 mg PO HS 03/28/24 05/19/24 metoprolol tartrate 50 mg tablet 50 mg PO BID 03/29/24 05/19/24 dutasteride 0.5 mg capsule 0.5 mg PO DAILY 04/29/24 05/19/24 Allergies Allergy/AdvReac Type Severity Reaction Status Date / Time No Known Allergies Allergy Verified 04/29/24 19:18 [facility] Disclaimer: The information contained in this section may have been updated after the patient was seen, as this information can be updated by other users. Medical History Stenosis of carotid artery Left carotid bruit BPH without obstruction/lower urinary tract symptoms BPH (benign prostatic hyperplasia) CALEB (renal artery stenosis) HFrEF (heart failure with reduced ejection fraction) CHF (congestive heart failure) Dyspnea HLD (hyperlipidemia) HTN (hypertension) CAD (coronary artery disease) Abdominal aortic aneurysm CKD (chronic kidney disease) Atrial fibrillation Surgical History H/O fasciotomy Family History Other No significant family history Social History (Updated 05/19/24 @ 14:42 by Millie Pollack RN) Smoking Status: Current every day smoker tobacco type: cigarettes second hand exposure: No alcohol intake: never substance use type: denies use current occupational status: retired Travel in the last 8 weeks: Inside the [place] household members: spouse housing: house caffeine: Yes Have you lived/traveled outside [place] in past 30 days?: No Contact w/someone who lives/traveled outside [place] past 30 days?: No Exposure to someone with infectious disease in past 14 days?: No Do you have a fever (greater than 100.4 F or 38 C)?: No Have you tested positive for COVID-19: No Exposed to someone with COVID-19 in past 14 days?: No Do you have a sore throat?: No Do you have a cough?: No Do you have any weakness?: No Do you have any diarrhea?: No Are you experiencing any unusual bleeding?: No Do you have any muscle aches/pain?: No Do you have any abdominal pain?: No Are you experiencing loss of taste or smell?: No Other Medical History Have you received the Flu Vaccine for this season: No Have you received the Pneumonia Vaccine: No ROS Obtained: Yes Systems reviewed as appropriate & no additional complaints except as documented Physical Exam General General appearance: alert and in no apparent distress Head Head exam: atraumatic and normocephalic Eye Eye exam: Present PERRL and EOMI ENT ENT exam: Present mucous membranes moist Neck Neck exam: Present normal inspection Chest Chest inspection: Present normal inspection and symmetric chest wall rise Respiratory Respiratory exam: Present respiratory distress, wheezes (Biphasic wheezing on the right, no wheezing on the left), accessory muscle use and other (Tachypnea); Absent normal lung sounds bilaterally Cardiovascular Cardiovascular exam: Present regular rate and normal rhythm Abdominal Exam Abdominal exam: Present soft; Absent tenderness Extremities Exam Extremities exam: Present normal inspection; Absent edema Neurological Exam Neurological exam: Present alert Psychiatric Psychiatric exam: Present normal affect Skin Skin exam: Present warm and dry HEART Score HEART Score HEART Score assessment performed?: Yes History (anamnesis): Slightly suspicious ECG: Normal Age: >65 years Risk factors: Atherosclerosis history Troponin: > 3x normal limit HEART Score: 6 Critical Care Critical Care Time Critical Care Time: Yes Attestation: On 05/19/24, the high probability of a clinically significant, sudden or life threatening deterioration of the following system(s) required my full and direct attention, intervention and personal management. The time I documented below is in addition to time spent performing reported procedures but includes the following listed in this critical care notation. Total Time Total Critical Care Time: 40 Medical Decision Making Anjel Inquiry Pt receiving controlled substance: No Vital Signs Vital Signs: 05/19/24 14:36 05/19/24 15:00 05/19/24 15:30 Temperature 98.7 F Temperature Source Oral Pulse Rate 65 77 Pulse Rate [Right Brachial] 83 Respiratory Rate 20 28 H 26 H Blood Pressure 153/71 H 148/90 H Blood Pressure [Right Arm] 151/81 H Blood Pressure Mean 109 Blood Pressure Mean [Right Arm] 104 Blood Pressure Source Blood Pressure Source [Right Arm] Automatic Cuff Blood Pressure Position Blood Pressure Position [Right Arm] Supine 02 Sat by Pulse Oximetry 97 91 L 93 L Oxygen Delivery Method Room Air Nasal Cannula Oxygen Flow Rate (LPM) 2 05/19/24 16:26 05/19/24 16:45 05/19/24 17:00 Temperature Temperature Source Pulse Rate 79 67 67 Pulse Rate [Right Brachial] Respiratory Rate 32 H 22 24 Blood Pressure 160/87 H 151/82 H 125/62 Blood Pressure [Right Arm] Blood Pressure Mean Blood Pressure Mean [Right Arm] Blood Pressure Source Blood Pressure Source [Right Arm] Blood Pressure Position Blood Pressure Position [Right Arm] 02 Sat by Pulse Oximetry 91 L 92 L 92 L Oxygen Delivery Method Room Air Room Air Room Air Oxygen Flow Rate (LPM) 05/19/24 17:31 05/19/24 17:49 Temperature 98.6 F Temperature Source Oral Pulse Rate 87 62 Pulse Rate [Right Brachial] Respiratory Rate 24 18 Blood Pressure 125/72 166/84 H Blood Pressure [Right Arm] Blood Pressure Mean Blood Pressure Mean [Right Arm] Blood Pressure Source Automatic Cuff Blood Pressure Source [Right Arm] Blood Pressure Position Supine Blood Pressure Position [Right Arm] 02 Sat by Pulse Oximetry 93 L Oxygen Delivery Method Room Air Room Air Oxygen Flow Rate (LPM) Lab Data Labs: Lab Results 05/19/24 14:20: APTT 38.2 L 05/19/24 14:41: WBC 4.9, RBC 4.71, Hgb 14.9, Hct 43.8, MCV 93.0, MCH 31.6 H, MCHC 34.0, RDW 14.6, Plt Count 140 L, MPV 11.0 H, Neut % (Auto) 72.2, Lymph % (Auto) 20.3, [place] % (Auto) 6.3, Eos % (Auto) 0.6, Baso % (Auto) 0.4, Neut # (Auto) 3.6, Lymph # (Auto) 1.0, [place] # (Auto) 0.3, Eos # (Auto) 0.0, Baso # (Auto) 0.0, HCV Ab ZEESHAN w/Rflx PCR Qn Negative, HIV Ag/Ab Combo Qual Negative 05/19/24 15:54: Sodium 133 L, Potassium 4.2, Chloride 101, Carbon Dioxide 26, Anion Gap 10.2, BUN 12, Creatinine 0.80, Estimated Creat Clear 54, Estimated GFR 93, Est GFR ( Amer) 112, Glucose 113 H, Calcium 8.8, Total Bilirubin 0.9, AST 21, ALT 12, Alkaline Phosphatase 117, Troponin I 0.91 H, Total Protein 6.1 L , Albumin 3.6, Globulin 2.5, Albumin/Globulin Ratio 1.4 05/19/24 15:56: VBG pH 7.41, VBG pCO2 34.5 L, VBG pO2 111.3 H, VBG HCO3 21.3 L, VBG Total CO2 22.4 L, VBG O2 Saturation 97.9 H, VBG Base Excess -3.3 L, VBG Lactic Acid 1.0 05/19/24 14:41 05/19/24 15:54 Response Orders (Tests/Meds): ED MEDICATIONS Generic Name Dose Route Start Last Admin Trade Name Freq PRN Reason Stop Dose Admin Acetaminophen 650 mg 05/19/24 17:26 Acetaminophen 325mg Tab PO 06/18/24 17:25 Q4HP PRN Fever or Mild Pain (1-3) Albuterol/Ipratropium 3 ml 05/19/24 18:00 Ipratropium/Albuterol 3 Ml [facility] 06/18/24 17:59 Q6RT [facility] Budesonide 0.5 mg 05/19/24 18:00 Budesonide 0.5mg/2ml [facility] 06/18/24 17:59 BIDRT [place] Miscellaneous 1 each 05/19/24 17:30 Heparin Drip Consult NOTAPPLIC 06/18/24 17:29 CONSULT PHARMACY [facility] Ondansetron HCl 4 mg 05/19/24 17:26 Ondansetron 4mg/2ml Vial IV 06/18/24 17:25 Q8HP PRN Nausea Discontinued Medications Generic Name Dose Route Start Last Admin Trade Name Waylonq PRN Reason Stop Dose Admin Albuterol/Ipratropium 9 ml 05/19/24 15:34 05/19/24 15:42 Ipratropium/Albuterol 3 Ml Neb IH 05/19/24 15:35 9 ml ONCE ONE Administration Aspirin 324 mg 05/19/24 17:05 05/19/24 17:06 Aspirin 81mg Chewable Tablet PO 05/19/24 17:06 324 mg ONCE ONE Administration Magnesium Sulfate 2 gm in 50 mls @ 50 mls/hr 05/19/24 15:34 05/19/24 15:42 Magnesium Sulfate 2gm/50ml Premix IV 05/19/24 16:33 50 mls/hr ONCE ONE Administration Azithromycin 500 mg/ Sodium 250 mls @ 250 mls/hr 05/19/24 15:40 05/19/24 16:22 Chloride IV 05/19/24 15:41 250 mls/hr ONCE ONE Administration Methylprednisolone Sodium Succinate 125 mg 05/19/24 15:34 05/19/24 15:42 Methylprednisolone Sod Succ 125mg Vial IV 05/19/24 15:35 125 mg ONCE ONE Administration ORDERS Category Date Time Status Cardiology Consult [Consult to Cardiology] [CONS] Cons 05/19/24 17:28 Active Routine Chest XR -- portable [XR chest portable] Stat Exams 05/19/24 15:34 Completed CBC w/Auto Diff [Complete Blood Count Auto Diff] Stat Lab 05/19/24 14:41 Completed CMP [Comprehensive Metabolic Panel] Stat Lab 05/19/24 15:54 Completed Complete Blood Count Auto Diff AMLAB Lab 05/20/24 06:00 Ordered Complete Blood Count Auto Diff AMLAB Lab 05/21/24 06:00 Ordered Complete Blood Count Auto Diff AMLAB Lab 05/22/24 06:00 Ordered Complete Blood Count Auto Diff AMLAB Lab 05/23/24 06:00 Ordered Complete Blood Count Auto Diff AMLAB Lab 05/24/24 06:00 Ordered Comprehensive Metabolic Panel AMLAB Lab 05/20/24 06:00 Ordered Comprehensive Metabolic Panel AMLAB Lab 05/21/24 06:00 Ordered Comprehensive Metabolic Panel AMLAB Lab 05/22/24 06:00 Ordered Comprehensive Metabolic Panel [facility] Lab 05/23/24 06:00 Ordered Comprehensive Metabolic Panel [facility] Lab 05/24/24 06:00 Ordered HIV Combo Stat Lab 05/19/24 14:41 Completed Hepatitis C Ab Qual. W/ RFX Stat Lab 05/19/24 14:41 Completed Lipid Panel [facility] Lab 05/20/24 06:00 Ordered Magnesium AMLAB Lab 05/20/24 06:00 Ordered Magnesium AMLAB Lab 05/21/24 06:00 Ordered Magnesium AMLAB Lab 05/22/24 06:00 Ordered Magnesium AMLAB Lab 05/23/24 06:00 Ordered Magnesium AMLAB Lab 05/24/24 06:00 Ordered PTT Heparin (inpatient only) Stat Lab 05/19/24 14:20 Completed Trop I [Troponin I] Stat Lab 05/19/24 15:54 Completed Troponin I Q3H Lab 05/19/24 18:45 Ordered Troponin I Q3H Lab 05/19/24 21:45 Ordered Blood Culture Stat Micro 05/19/24 16:21 Received VBG [Venous Blood Gas] Stat RT 05/19/24 15:56 Completed CA echo doppler complete Routine Y 05/19/24 17:28 Ordered ECG Data Tracing #1: ECG Narrative: Independently interpreted by me rate 77, rhythm is irregular, axis is normal, no ST elevation in anatomical contiguous leads, atrial fibrillation versus flutter with variable block. QTc 421. Tracing #2: ECG Narrative: Independently inter by me rate is 93, rhythm is irregular, axis is normal, no ST elevation in anatomical contiguous leads, atrial fibrillation, QTc 441 MDM Narrative Medical Decision Narrative: In summary patient is a 83-year-old male with past medical history described above who presents emergency department for evaluation of shortness of breath and cough. Patient is hemodynamically stable and nontoxic-appearing upon arrival, afebrile, tachypneic with biphasic wheezing in the right lung k[place]. My concern for pneumonia is high. Differential includes viral induced COPD exacerbation, among others. Atypical ACS is also on the differential. Workup will be conducted with hematologic labs, chest x-ray, EKG, serial troponins. Initial inventions include DuoNebs x 3, methylprednisolone, IV azithromycin, IV magnesium sulfate. Initial workup reviewed by me, no significant leukocytosis, compensated acid-base status mild nonactionable hyponatremia no DOMITILA or critical electrolyte abnormality. Initial troponin significantly elevated 0.91. EKG obtained, no dynamic changes, atrial flutter with variable block. Case was discussed with Dr. Howard who agrees this is either somewhat ACS versus NSTEMI from his COPD exacerbation, no acute [employer] intervention is warranted. Patient has been dosed with aspirin appropriately. Will undergo serial troponins. Chest x-ray informally interpreted by me, mild bibasilar opacities. No acute dense lobar opacities or large pneumothorax. Case was discussed with hospital medicine regarding management they will admit the patient to their service for continued evaluation at this time.
[2024-05-19] MEDS: METHYLPREDNISOLONE SOD SUCC 125MG VIAL 125 MG IV (15:42)
[2024-05-19] MEDS: IPRATROPIUM/ALBUTEROL 3 ML NEB 9 ML IH (15:42)
[2024-05-19] MEDS: MAGNESIUM SULFATE IN WATER 2 GM/50 ML PIGGYBACK IV (15:42)
[2024-05-19 15:52] LABS: Basophils % 0.4 % (0.1-2.0); Eosinophils % 0.6 % (0.1-12.0); Hematocrit 43.8 % (42.0-52.0); Hemoglobin 14.9 g/dL (14.1-18.0); Lymphocytes % 20.3 % (10-50); Mean Corpuscular Hemoglobin 31.6 pg (27.0-31.2); Monocytes # 0.3 K/mm3 (0.1-1.0); Monocytes % 6.3 % (1.7-9.3); Neutrophils # 3.6 K/mm3 (1.8-7.8); Neutrophils % 72.2 % (37.0-80.0); Platelet Count 140 K/mm3 (142-424); Red Blood Count 4.71 M/mm3 (4.60-6.20); Red Cell Distribution Width 14.6 % (11.5-17.5); White Blood Count 4.9 K/mm3 (4.8-10.8)
[2024-05-19 16:10] LABS: VBG Base Excess -3.3 mmol/L (-2.4-2.3); VBG HCO3 21.3 mmol/L (23-30); VBG Oxygen Saturation 97.9 % (50-70); VBG PCO2 34.5 mmol/L (35-51); VBG PH 7.41 mmol/L (7.31-7.41); VBG PO2 111.3 mmol/L (28-40); VBG Total CO2 22.4 mmol/L (23-27)
[2024-05-19] MEDS: AZITHROMYCIN 500 MG in 0.9 % SODIUM CHLORIDE 250 ML 250 MG IV (16:22)
[2024-05-19 16:34] LABS: Albumin Level 3.6 g/dl (3.5-5.0); Chloride 101 mmol/L (98-107); Potassium 4.2 mmoL/L (3.5-5.1); Sodium 133 mmol/L (136-145)
[2024-05-19 16:36] LABS: Blood Urea Nitrogen 12 mg/dl (9-20); Creatinine Clearance Estimated 54 mL/min (50-200); Estimated Glomerular Filt Rate 93 ml/min (>60); GFR (African American) 112 ML/MIN (>60)
[2024-05-19 16:37] LABS: Alanine Aminotransferase 12 U/L (12-78); Albumin/Globulin Ratio 1.4 (1.1-1.8); Alkaline Phosphatase 117 U/L (38-126); Anion Gap 10.2 mEq/L (5-15); Aspartate Amino Transferase 21 U/L (17-59); Bilirubin,Total 0.9 mg/dl (0.2-1.3); Calcium 8.8 mg/dl (8.4-10.2); Carbon Dioxide 26 mmol/L (22.0-30.0); Globulin 2.5 g/dL (1.3-3.2); Glucose 113 mg/dl (74-100); Total Protein,Serum 6.1 g/dl (6.3-8.2)
[2024-05-19 16:52] LABS: Troponin I 0.91 ng/ml (0.00-0.034)
--- NOTE | 2024-05-19 16:53 | PC.NURSE ---
trop 0.91. aware
--- NOTE | 2024-05-19 16:56 | ECG_ITS ---
APPROVED REPORT Exam: Resting ECG HR:93 bpm ECG Measurements Heart Rate 93 AXES QRSd 102 QRS 2 QT 390 T 120 QTc 441 Conclusion ATRIAL FIBRILLATION PROBABLE INFERIOR MYOCARDIAL INFARCTION , PROBABLY OLD [35 ms Q WAVE IN II/aVF] No STEMI Electronically signed by : CHINO BETTENCOURT, 05/20/2024 00:28:36
[2024-05-19 17:05] LABS: HIV Combo NEGATIVE (Negative)
[2024-05-19] MEDS: ASPIRIN 81MG CHEWABLE TABLET 324 MG PO (17:06)
--- NOTE | 2024-05-19 17:35 | PC.NURSE ---
HS aware of admission
--- NOTE | 2024-05-19 17:39 | PC.NURSE ---
Attempted to call report, no answer at this time.
[2024-05-19 17:43] LABS: Hepatitis C Ab Qual. W/ RFX NEGATIVE (Negative)
[2024-05-19 17:47] LABS: PTT Heparin (inpatient only) 38.2 Seconds (50-75)
--- NOTE | 2024-05-19 18:19 | PC.NURSE ---
arrived by stretcher from ED
--- NOTE | 2024-05-19 18:48 | PC.NURSE ---
contacted overnight pharmacy regarding ptt result. pharmacy to order bolus and heparin drip
[2024-05-19] MEDS: HEPARIN DRIP CONSULT 1 EACH NOTAPPLIC (18:56)
[2024-05-19] MEDS: HEPARIN SODIUM 5,000 UNIT/ML VIAL 3000 UNIT IV (18:57)
[2024-05-19] MEDS: HEPARIN SODIUM,PORCINE/D5W 500 ML 16 UNIT IV (18:57)
--- NOTE | 2024-05-19 19:02 | EXP.HP ---
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 Patient states he has been coughing more recently with yellow phlegm, but denies chest pains, fever/chills, abdominal pain, urinary symptoms. On arrival, patient had restricted airways on room air which improved slightly after breathing treatments and steroids. Patient continued to have tachypnea, but troponin also resolved and 0.91. Other workup unremarkable. Case discussed ED provider and decision was made to admit patient for COPD exacerbation and NSTEMI. [facility] Disclaimer: The information contained in this section may have been updated after the patient was seen, as this information can be updated by other users. Medical History Stenosis of carotid artery Left carotid bruit BPH without obstruction/lower urinary tract symptoms BPH (benign prostatic hyperplasia) CALEB (renal artery stenosis) HFrEF (heart failure with reduced ejection fraction) CHF (congestive heart failure) Dyspnea HLD (hyperlipidemia) HTN (hypertension) CAD (coronary artery disease) Abdominal aortic aneurysm CKD (chronic kidney disease) Atrial fibrillation Surgical History H/O fasciotomy Family History Other No significant family history Social History (Updated 05/19/24 @ 18:47 by Barbara Jacques RN) Smoking Status: Current every day smoker tobacco type: cigarettes second hand exposure: No alcohol intake: never substance use type: denies use current occupational status: retired Travel in the last 8 weeks: Inside the [place] household members: spouse housing: house caffeine: Yes Have you lived/traveled outside [place] in past 30 days?: No Contact w/someone who lives/traveled outside [place] past 30 days?: No Exposure to someone with infectious disease in past 14 days?: No Do you have a fever (greater than 100.4 F or 38 C)?: No Have you tested positive for COVID-19: No Exposed to someone with COVID-19 in past 14 days?: No Do you have a sore throat?: No Do you have a cough?: No Do you have any weakness?: No Are you experiencing any nausea/vomitting?: No Do you have any diarrhea?: No Are you experiencing any unusual bleeding?: No Do you have any muscle aches/pain?: No Do you have any abdominal pain?: No Are you experiencing loss of taste or smell?: No Other Medical History Have you received the Flu Vaccine for this season: Yes Have you received the Pneumonia Vaccine: Yes Meds Home Medications and Allergies Home Medications ?Medication ?Instructions ?Recorded ?Confirmed ?Type ezetimibe 10 mg-simvastatin 40 mg 1 tab PO HS 07/11/17 05/19/24 History tablet lansoprazole 30 mg capsule,delayed 30 mg PO DAILY 09/27/22 05/19/24 History release levocetirizine 5 mg tablet 5 mg PO DAILY 09/27/22 05/19/24 History trazodone 100 mg tablet 100 mg PO HS 09/27/22 05/19/24 History fluticasone fur. 100 mcg-umeclid 1 inh inhalation DAILY 01/29/23 05/19/24 History 62.5 mcg-vilant 25 mcg inhalat.powder (Trelegy Ellipta) apixaban 5 mg tablet (Eliquis) 5 mg PO BID 03/28/24 05/19/24 History duloxetine 60 mg capsule,delayed 60 mg PO DAILY 03/28/24 05/19/24 History release famotidine 20 mg tablet 20 mg PO DAILY 03/28/24 05/19/24 History fluticasone propionate 50 1 spray intranasal DAILY 03/28/24 05/19/24 History mcg/actuation nasal spray,suspension potassium chloride 20 mEq 20 meq PO DAILY 03/28/24 05/19/24 History tablet,extended release(part/cryst) tamsulosin 0.4 mg capsule 0.4 mg PO HS 03/28/24 05/19/24 History metoprolol tartrate 50 mg tablet 50 mg PO BID 03/29/24 05/19/24 History dutasteride 0.5 mg capsule 0.5 mg PO DAILY 04/29/24 05/19/24 History New Prescriptions to Start Prescriptions: Allergies Allergy/AdvReac Type Severity Reaction Status Date / Time No Known Allergies Allergy Verified 04/29/24 19:18 Exam Data for Last 24 hours Vital signs and Labs for Last 24 Hours: Temp Pulse Resp BP Pulse Ox O2 Del Method O2 Flow Rate 98.6 F 84 24 132/90 93 L Room Air 2 05/19/24 17:49 05/19/24 18:18 05/19/24 18:18 05/19/24 18:18 05/19/24 18:18 05/19/24 18:18 05/19/24 15:00 Laboratory Results - last 24 hr 05/19/24 14:20: APTT 38.2 L 05/19/24 14:41: WBC 4.9, RBC 4.71, Hgb 14.9, Hct 43.8, MCV 93.0, MCH 31.6 H, MCHC 34.0, RDW 14.6, Plt Count 140 L, MPV 11.0 H, Neut % (Auto) 72.2, Lymph % (Auto) 20.3, [place] % (Auto) 6.3, Eos % (Auto) 0.6, Baso % (Auto) 0.4, Neut # (Auto) 3.6, Lymph # (Auto) 1.0, [place] # (Auto) 0.3, Eos # (Auto) 0.0, Baso # (Auto) 0.0, HCV Ab ZEESHAN w/Rflx PCR Qn Negative, HIV Ag/Ab Combo Qual Negative 05/19/24 15:54: Sodium 133 L, Potassium 4.2, Chloride 101, Carbon Dioxide 26, Anion Gap 10.2, BUN 12, Creatinine 0.80, Estimated Creat Clear 54, Estimated GFR 93, Est GFR ( Amer) 112, Glucose 113 H, Calcium 8.8, Total Bilirubin 0.9, AST 21, ALT 12, Alkaline Phosphatase 117, Troponin I 0.91 H, Total Protein 6.1 L, Albumin 3.6, Globulin 2.5, Albumin/Globulin Ratio 1.4 05/19/24 15:56: VBG pH 7.41, VBG pCO2 34.5 L, VBG pO2 111.3 H, VBG HCO3 21.3 L, VBG Total CO2 22.4 L, VBG O2 Saturation 97.9 H, VBG Base Excess -3.3 L, VBG Lactic Acid 1.0 I & O for Last 24 hours: Intake & Output 05/16/24 05/17/24 05/18/24 05/19/24 23:59 23:59 23:59 23:59 Weight 63.219 kg Constitutional Constitutional: no acute distress *Routine HEENT Exam Head: Present normocephalic Eye: Present EOMI and PERRL ENT: Present mucous membranes moist *Routine Neck Exam Neck: Present supple; Absent lymphadenopathy *Routine Respiratory Exam Respiratory: Present CTA bilaterally *Routine Cardiovascular Exam Cardiovascular: Present RRR *Routine Abdominal Exam Abdominal: Present soft and normoactive bowel sounds; Absent tenderness *Routine Rectal Exam Rectal:: deferred *Routine Genitalia Exam Genitalia:: deferred *Routine Extremities Exam Extremities: Absent cyanosis, clubbing or edema *Routine Skin Exam Skin: Present warm; Absent rash *Routine Neurological Exam Neurological: Present alert and oriented X3 Assessment and Plan *Assessment and plan (1) Acute non-ST elevation myocardial infarction (NSTEMI): Status: Acute Category: Medical Code(s): I21.4 - Non-ST elevation (NSTEMI) myocardial infarction (2) Acute exacerbation of chronic obstructive pulmonary disease: Status: Acute Category: Medical Code(s): J44.1 - Chronic obstructive pulmonary disease with (acute) exacerbation Plan Ti Rodríguez is a 83-year-old male with a medical history significant for CABG x 5 in 1994, renal artery stenosis with stenting, HFrEF, COPD on room air, AAA s/p repair, 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 Patient states he has been coughing more recently with yellow phlegm, but denies chest pains, fever/chills, abdominal pain, urinary symptoms. On arrival, patient had restricted airways on room air which improved slightly after breathing treatments and steroids. Patient continued to have tachypnea, but troponin also resolved and 0.91. Other workup unremarkable. Case discussed ED provider and decision was made to admit patient for COPD exacerbation and NSTEMI. #NSTEMI #History of HFrEF #History of renal artery stenosis ? Presented with shortness of breath in the setting of suspected COPD exacerbation. Initial troponin 0.91, EKG without acute ischemic changes. ? History of CABG x 5 in 1994, renal artery stenosis, AAA. Current longstanding smoker. ? Suspect NSTEMI type II in the setting of COPD exacerbation but cannot rule out underlying coronary ACS event given history of CABG. ? Started heparin drip. ASA 325 mg given in the ED. ? Continue metoprolol tartrate 50 mg twice daily, atorvastatin 40 mg. ? Cardiology consulted, pending recommendations. BNP elevated, hold diuretics pending cardiology consult. #COPD exacerbation #Community-acquired pneumonia ? Shortness of breath, diffuse wheezing across all lung krause. Yellow productive cough. ? CXR shows right lower lobe infiltrates. ? DuoNebs every 6 hours, Pulmicort twice daily. ? Ceftriaxone, azithromycin day 1. ? Prednisone 40 mg daily. ? Follow-up sputum, blood cultures. Full respiratory panel. #AAA s/p repair #Right AKA #Current smoker ? Had thrombus to right lower extremity during AAA surgery s/p right AKA. ? Continues to smoke after stopping for years. Extensively counseled, nicotine patch daily. Full code DVT prophylaxis: Heparin drip.
[2024-05-19 19:15] LABS: NT Pro Brain Natriuretic Pep. 3580 pg/mL (0-450)
[2024-05-19 19:20] LABS: Troponin I 0.89 ng/ml (0.00-0.034)
[2024-05-19] MEDS: ATORVASTATIN 40MG TABLET 40 MG PO (20:22)
[2024-05-19] MEDS: CEFTRIAXONE 1 GM 1 GM in 0.9 % SODIUM CHLORIDE 50 ML IV (20:22)
[2024-05-19] MEDS: TAMSULOSIN 0.4MG CAPSULE 0.4 MG PO (20:23)
[2024-05-19] MEDS: METOPROLOL TARTRATE 50MG TABLET 50 MG PO (20:23)
[2024-05-19] MEDS: PANTOPRAZOLE 40MG TABLET 40 MG PO (20:23)
[2024-05-19 20:36] LABS: Adenovirus,PCR Not Detected (NotDetected); Bordetella Pertussis Not Detected (NotDetected); Chlamydophila Pneumoniae, PCR Not Detected (NotDetected); Coronavirus 19, PCR Not Detected (NotDetected); Coronavirus 229E Not Detected (NotDetected); Coronavirus NL63 Not Detected (NotDetected); Coronavirus OC43 Not Detected (NotDetected); Coronovirus HKU1,PCR Not Detected (NotDetected); Influenza A, PCR Not Detected (NotDetected); Influenza AH1, 2009 Not Detected (NotDetected); Influenza AH1, PCR Not Detected (NotDetected); Influenza AH3,PCR Not Detected (NotDetected); Influenza B, PCR Not Detected (NotDetected); Mycoplasma Pneumoniae, PCR Not Detected (NotDetected); Parainfluenza 1, PCR Not Detected (NotDetected); Parainfluenza 2, PCR Not Detected (NotDetected); Parainfluenza 3, PCR Not Detected (NotDetected); Parainfluenza 4, PCR Not Detected (NotDetected); Respiratory Syncytial Virus Not Detected (NotDetected); Rhinovirus/Enterovirus Not Detected (NotDetected)
[2024-05-19 21:52] LABS: Human Metapneumovirus Detected (NotDetected)
[2024-05-19 22:26] LABS: Troponin I 0.86 ng/ml (0.00-0.034)
[2024-05-19] MEDS: LEVALBUTEROL 1.25MG/3ML NEB 1.25 MG IH (23:34)
[2024-05-19] MEDS: IPRATROPIUM BROMIDE 0.5 MG/2.5ML SOLUTION IH (23:35)
[2024-05-20] VITALS (37 sets, daily range): BP systolic 102–155; BP diastolic 45–93; PULSE 65–112; RESP 16–25; TEMP 36.2–36.7; O2SAT 86–100; BMI 24.0
[2024-05-20 02:06] LABS: PTT Heparin (inpatient only) > 139.0 Seconds (50-75)
[2024-05-20] MEDS: HEPARIN SODIUM,PORCINE/D5W 500 ML 12 UNIT IV (02:18)
--- NOTE | 2024-05-20 06:21 | PC.NURSE ---
Pt alert and oriented with times of confusion. He has tolerated room air with O2 sats greater then 90%. He has denied any chest pain or shortness of breath. Heparin gtt has remained in place and is currently at 12 ml/hr. He has remained a-fib on tele. He has been npo since midnight. Currently asleep with bed alarm in place.
[2024-05-20] MEDS: IPRATROPIUM BROMIDE 0.5 MG/2.5ML SOLUTION IH ×3 (06:43→23:09)
[2024-05-20] MEDS: LEVALBUTEROL 1.25MG/3ML NEB 1.25 MG IH ×3 (06:43→23:09)
[2024-05-20] MEDS: BUDESONIDE 0.5MG/2ML NEB 0.5 MG IH ×2 (06:43→17:28)
[2024-05-20 07:02] LABS: Eosinophils % 1.3 % (0.1-12.0); Hematocrit 44.6 % (42.0-52.0); Hemoglobin 14.8 g/dL (14.1-18.0); Lymphocytes # 0.6 K/mm3 (0.7-4.5); Lymphocytes % 24.5 % (10-50); Mean Corpuscular HGB Conc 33.2 g/dL (31.8-35.4); Mean Corpuscular Hemoglobin 31.2 pg (27.0-31.2); Mean Corpuscular Volume 94.1 fl (80-94); Mean Platelet Volume 10.6 fl (7.4-10.4); Monocytes # 0.1 K/mm3 (0.1-1.0); Monocytes % 3.4 % (1.7-9.3); Neutrophils # 1.6 K/mm3 (1.8-7.8); Neutrophils % 69.9 % (37.0-80.0); Platelet Count 143 K/mm3 (142-424); Red Blood Count 4.74 M/mm3 (4.60-6.20); Red Cell Distribution Width 14.5 % (11.5-17.5); White Blood Count 2.3 K/mm3 (4.8-10.8)
[2024-05-20 07:08] LABS: Albumin Level 3.7 g/dl (3.5-5.0); Chloride 100 mmol/L (98-107); Sodium 136 mmol/L (136-145)
[2024-05-20 07:09] LABS: Potassium 3.9 mmoL/L (3.5-5.1)
[2024-05-20 07:11] LABS: Alanine Aminotransferase 19 U/L (12-78); Albumin/Globulin Ratio 1.5 (1.1-1.8); Alkaline Phosphatase 117 U/L (38-126); Anion Gap 12.9 mEq/L (5-15); Aspartate Amino Transferase 24 U/L (17-59); Bilirubin,Total 0.6 mg/dl (0.2-1.3); Blood Urea Nitrogen 16 mg/dl (9-20); Calcium 8.9 mg/dl (8.4-10.2); Carbon Dioxide 27 mmol/L (22.0-30.0); Cholesterol 135 mg/dl (140-200); Creatinine Clearance Estimated 52 mL/min (50-200); Estimated Glomerular Filt Rate 72 ml/min (>60); GFR (African American) 87 ML/MIN (>60); Globulin 2.5 g/dL (1.3-3.2); Glucose 180 mg/dl (74-100); Total Protein,Serum 6.2 g/dl (6.3-8.2); Triglycerides 153 mg/dl (30-150); VLDL Cholesterol 31 mg/dL (0-40)
[2024-05-20 07:12] LABS: Chol/HDL Ratio 4.1 (1-3.5); HDL Cholesterol 33 mg/dl (40-60); Magnesium 2.3 mg/dl (1.6-2.3)
[2024-05-20 07:23] LABS: Direct LDL Cholesterol 75.31 mg/dL (100-129)
--- NOTE | 2024-05-20 07:30 | PC.NURSE ---
Student nurse, Damaris Taylor will be providing care under my supervision.
--- NOTE | 2024-05-20 07:40 | HMH.PHAINT1 ---
Pharmacy Intervention Comments: HOME MEDICATION LIST VERIFIED USING LIST FROM OUTPATIENT PHARMACY
--- NOTE | 2024-05-20 07:44 | HMH.PHAHEP ---
[facility] Pharmacy Heparin Dosing Demographic Data Admission date:: 05/19/24 Date: 05/20/24 Time: 07:44 Allergies Allergy/AdvReac Type Severity Reaction Status Date / Time No Known Allergies Allergy Verified 04/29/24 19:18 Height: 1.63 m Weight: 63.9 kg Indication Medication therapy:: Heparin Current Active Problems (Updated 05/20/24 @ 13:42 by Kelsey Toledo APRN) Atypical angina (Acute) Acute non-ST elevation myocardial infarction (NSTEMI) (Acute) Acute exacerbation of chronic obstructive pulmonary disease (Acute) Urinary tract infectious disease (Acute) Right lower lobe pneumonia (Acute) CAD (coronary artery disease) (Chronic) HTN (hypertension) (Chronic) HLD (hyperlipidemia) (Chronic) HFrEF (heart failure with reduced ejection fraction) (Acute) Stenosis of carotid artery (Acute) PAD (peripheral artery disease) (Chronic) CVA?: No Bleeding problem?: No Kidney disease?: No [place]?: No Desired PTT range:: 50-75 seconds Labs Anticoagulation Lab Results:: 05/19/24 05/20/24 14:41 06:20 Hgb 14.9 14.8 Hct 43.8 44.6 Plt Count 140 L 143 Monitoring Dose Monitor 1: Date: 05/19/24 Time: 14:20 PTT Result:: 38.2 Infusion Rate:: 800 UNITS/HR Comment:: 3,000 UNIT BOLUS Dose Monitor 2: Date: 05/20/24 Time: 01:23 PTT Result:: >139.0 Infusion Rate:: DECREASE RATE TO 600 UNITS/HR Dose Monitor 3: Date: 05/20/24 Time: 08:30 PTT Result:: 58.7 Comment:: 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 Core Measures Is INR > or = 2 at discharge?: No Most Recent Labs:: Laboratory Results - last 24 hr 05/19/24 14:20: APTT 38.2 L 05/19/24 14:41: WBC 4.9, RBC 4.71, Hgb 14.9, Hct 43.8, MCV 93.0, MCH 31.6 H, MCHC 34.0, RDW 14.6, Plt Count 140 L, MPV 11.0 H, Neut % (Auto) 72.2, Lymph % (Auto) 20.3, [place] % (Auto) 6.3, Eos % (Auto) 0.6, Baso % (Auto) 0.4, Neut # (Auto) 3.6, Lymph # (Auto) 1.0, [place] # (Auto) 0.3, Eos # (Auto) 0.0, Baso # (Auto) 0.0, HCV Ab ZEESHAN w/Rflx PCR Qn Negative, HIV Ag/Ab Combo Qual Negative 05/19/24 15:54: Sodium 133 L, Potassium 4.2, Chloride 101, Carbon Dioxide 26, Anion Gap 10.2, BUN 12, Creatinine 0.80, Estimated Creat Clear 54, Estimated GFR 93, Est GFR ( Amer) 112, Glucose 113 H, Calcium 8.8, Total Bilirubin 0.9, AST 21, ALT 12, Alkaline Phosphatase 117, Troponin I 0.91 H, Total Protein 6.1 L, Albumin 3.6, Globulin 2.5, Albumin/Globulin Ratio 1.4 05/19/24 15:56: VBG pH 7.41, VBG pCO2 34.5 L, VBG pO2 111.3 H, VBG HCO3 21.3 L, VBG Total CO2 22.4 L, VBG O2 Saturation 97.9 H, VBG Base Excess -3.3 L, VBG Lactic Acid 1.0 05/19/24 18:49: Troponin I 0.89 H, NT-Pro-B Natriuret Pep 3580 H 05/19/24 20:31: Chlamy pneumoniae PCR Not detected, Adenovirus (PCR) Not detected, B. pertussis DNA (PCR) Not detected, Coronavirus OC43 (PCR) Not detected, Coronavirus HKU1 (PCR) Not detected, Coronavirus 229E (PCR) Not detected, SARS-CoV-2 (PCR) Not detected, Coronavirus NL63 (PCR) Not detected, Human Metapneumovir PCR Detected A, Influenza A (H1) PCR Not detected, Influ A (H1N1/09) PCR Not detected, Influenza A (H3) PCR Not detected, Influenza Type A (PCR) Not detected, Influenza Type B (PCR) Not detected, M. pneumoniae (PCR) Not detected, Parainfluenza 1 (PCR) Not detected, Parainfluenza 2 (PCR) Not detected, Parainfluenza 3 (PCR) Not detected, Parainfluenza 4 (PCR) Not detected, RSV (PCR) Not detected, Entero/Rhino (PCR) Not detected 05/19/24 21:54: Troponin I 0.86 H 05/20/24 01:23: APTT > 139.0 H* 05/20/24 06:20: WBC 2.3 L D, RBC 4.74, Hgb 14.8, Hct 44.6, MCV 94.1 H, MCH 31.2, MCHC 33.2, RDW 14.5, Plt Count 143, MPV 10.6 H, Neut % (Auto) 69.9, Lymph % (Auto) 24.5, [place] % (Auto) 3.4, Eos % (Auto) 1.3, Baso % (Auto) 0.0 L, Neut # (Auto) 1.6 L, Lymph # (Auto) 0.6 L, [place] # (Auto) 0.1, Eos # (Auto) 0.0, Baso # (Auto) 0.0, Sodium 136, Potassium 3.9, Chloride 100, Carbon Dioxide 27, Anion Gap 12.9, BUN 16 D, Creatinine 1.00 D, Estimated Creat Clear 52, Estimated GFR 72, Est GFR ( Amer) 87 D, Glucose 180 H D, Calcium 8.9, Magnesium 2.3, Total Bilirubin 0.6, AST 24, ALT 19 D, Alkaline Phosphatase 117, Total Protein 6.2 L, Albumin 3.7, Globulin 2.5, Albumin/Globulin Ratio 1.5, Triglycerides 153 H, Cholesterol 135 L, LDL Cholesterol Direct 75.31 L, VLDL Cholesterol 31, HDL Cholesterol 33 L, Cholesterol/HDL Ratio 4.1 H Were Heparin and Warfarin started on the same day?: No If not, why?: 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
[2024-05-20 08:57] LABS: PTT Heparin (inpatient only) 58.7 Seconds (50-75)
[2024-05-20] MEDS: METOPROLOL TARTRATE 50MG TABLET 50 MG PO ×2 (09:06→20:46)
[2024-05-20] MEDS: AZITHROMYCIN 250MG TABLET 250 MG PO (09:06)
[2024-05-20] MEDS: DULOXETINE 30MG CAPSULE.DR 60 MG PO (09:07)
--- NOTE | 2024-05-20 10:02 | IR_ITS ---
APPROVED REPORT Patient Location: Inpatient PROCEDURES Left heart catheterization Left ventriculogram Selective coronary angiogram Left internal mammary angiography Selective engagement of the saphenous vein graft to the diagonal artery Selective engagement of the saphenous vein graft to the right coronary artery/posterior descending artery Drug-eluting stent deployment to the saphenous vein graft supplying the diagonal artery Drug-eluting stent deployment to the saphenous vein graft supplying the right coronary artery/posterior descending artery INDICATION Coronary artery disease, Acute non-ST elevation myocardial infarction, History of coronary bypass surgery Informed consent was obtained prior to the procedure. COMPLICATIONS NONE Estimated Blood Loss: LESS THAN 10 ML TECHNIQUE One percent lidocaine used to anesthetize the right groin. The right femoral artery was accessed via the Seldinger technique and a 5 [place] sheath was placed in the right femoral artery. A JL 4, JR4 catheter were used to perform left heart catheterization, left ventriculogram selective coronary angiography as well as selective engagement of the 2 vein grafts and the left internal mammary artery. At the end the diagnostic angiogram therapeutic Was administered given a therapeutic ACT and the 5 [place] sheath was exchanged for a 6 [place] sheath. A multipurpose guide catheter was placed in the saphenous vein graft supplying the right coronary followed by a BMW wire. A 3.5 x 12 mm [place] stent was deployed at 18 to reducing the concentric stenosis to 0%. The catheter was then pulled out and placed into the saphenous vein graft supplying the diagonal artery and the BMW wire was advanced. A 3 mm x 38 mm Xience drug-eluting stent was deployed at 20 to reducing the stenosis to 0%. Excellent angiograph results were obtained. At the end the procedure the apparatus was removed the patient was transferred to the postop putting in stable condition for sheath removal ANGIOGRAPHIC RESULTS The left main artery Normal The left anterior descending artery Has stents in the proximal and mid segment which are widely patent with minimal in-stent restenosis. There is a mid LAD concentric calcified 80% stenosis and a vessel barely 2 mm in diameter followed by an additional 70% stenosis also in a vessel slightly less than 2 mm in diameter. The LAD then continues down and wraps the apex. The caliber of the mid LAD does not exceed 2 mm The circumflex artery Proximally occluded The right coronary artery Occluded at mid vessel The CHOUDHURY ventriculogram reveals Ejection fraction 35 to 40% with inferior and apical severe hypokinesis The left ventricular end-diastolic pressure 20 mmHg CHAN to LAD occluded Saphenous to right coronary artery has a mid vessel concentric 70 to 80% stenosis Saphenous to first diagonal artery has a mid vessel 50-60 and then 70% stenosis IMPRESSION Coronary disease as described above Successful stenting of the saphenous vein graft to the right coronary artery severe disease was to 0% with 1 drug-eluting stent Successful stenting of the saphenous vein graft to the first diagonal artery severe disease reduced to 0% with 1 drug-eluting stent PLAN 1. Dual antiplatelet therapy 2. Cardiac rehabilitation 3. Avoidance of tobacco products 4. Official echocardiogram to determine if ejection fraction is less than 35%. If so we will consider LifeVest 5. LDL less than 55 achieved with high intensity statin 6. Standard therapy for LV dysfunction Electronically signed by : Claude Howard MD 05/20/2024 13:19:29
--- NOTE | 2024-05-20 10:05 | PC.NURSE ---
Consent for left heart cath signed by Marce MALONE and on chart.
[2024-05-20] MEDS: diphenhydrAMINE 50MG/ML VIAL 50 MG IV (12:22)
[2024-05-20] MEDS: HEPARIN 1,000 UNITS/500ML NS (CATH LAB) 3000 UNIT IV (12:22)
[2024-05-20] MEDS: FENTANYL 100MCG/2ML VIAL 50 MCG IV (12:22)
[2024-05-20] MEDS: MIDAZOLAM HCL 1MG/ML 5ML VIAL 1 MG IV (12:22)
[2024-05-20] MEDS: 0.9 % SODIUM CHLORIDE 500 ML 25 ML IV (12:22)
[2024-05-20] MEDS: LIDOCAINE 1% 10ML MDV 20 ML IJ (12:23)
[2024-05-20] MEDS: HEPARIN 1,000 UNITS/ML 10ML VIAL (CATH LAB) 10000 UNIT IV (13:08)
--- NOTE | 2024-05-20 13:35 | P.CONCA_ITS ---
History of Present Illness History of Present Illness Consult date: 05/20/24 Requesting physician: Carroll Catalan Consult reason: shortness of breath Chief complaint: SOA History of present illness: This is an 83-year-old white gentleman who presented to the emergency department complaints of shortness of breath. He states that he has been more short of breath over the last month but in the last 2 to 3 days the shortness of breath got severe. He states it is associated with a cough and was coughing up yellow sputum. He denies any chest pain or pressure. He denied any lower extremity edema. He denies any fever, chills, nausea, vomiting, diarrhea, PND orthopnea. The patient did have an elevated troponin on admission consistent with a non- STEMI. The patient was treated with Plavix and started on a heparin drip. He states that his shortness of breath has improved but he still feels pretty short of breath with exertion currently. He has a known history of HFrEF and echocardiogram is currently pending. [facility] Disclaimer: The information contained in this section may have been updated after the p atient was seen, as this information can be updated by other users. Medical History (Updated 05/20/24 @ 13:42 by Kelsey Toledo APRN) Atypical angina Subdural hemorrhage Swelling of lower leg Dehiscence of operative wound Obesity (BMI 30.0-34.9) Stenosis of carotid artery Left carotid bruit BPH without obstruction/lower urinary tract symptoms BPH (benign prostatic hyperplasia) CALEB (renal artery stenosis) HFrEF (heart failure with reduced ejection fraction) CHF (congestive heart failure) Dyspnea HLD (hyperlipidemia) HTN (hypertension) CAD (coronary artery disease) Abdominal aortic aneurysm CKD (chronic kidney disease) Atrial fibrillation Surgical History H/O fasciotomy Family History Other No significant family history Social History (Updated 05/19/24 @ 18:47 by Barbara Jacques RN) Smoking Status: Current every day smoker tobacco type: cigarettes second hand exposure: No alcohol intake: never substance use type: denies use current occupational status: retired Travel in the last 8 weeks: Inside the [place] household members: spouse housing: house caffeine: Yes Review of Systems Review of Systems Review of systems:: pertinent systems reviewed and negative unless documented below Constitutional Constitutional: Reports system reviewed and no additional complaints, except as documented and Reports lethargy Eyes Eyes: Reports system reviewed and no additional complaints, except as documented ENT Ears, Nose, Mouth, and Throat: Reports system reviewed and no additional complaints, except as documented *Cardiovascular Cardiovascular: Reports system reviewed and no additional complaints, except as documented, Denies chest pain, Reports dyspnea, Reports dyspnea on exertion and Denies edema *Respiratory Respiratory: Reports system reviewed and no additional complaints, except as documented, Reports change in phlegm color, Reports cough, Reports dyspnea, Reports dyspnea on exertion and Reports excessive phlegm production *Gastrointestinal Gastrointestinal: Reports system reviewed and no additional complaints, except as documented *Genitourinary Genitourinary: Reports system reviewed and no additional complaints, except as documented *Musculoskeletal Musculoskeletal: Reports system reviewed and no additional complaints, except as documented Integumentary/Breasts Skin/Breast: Reports system reviewed and no additional complaints, except as documented *Neurologic Neurologic: Reports system reviewed and no additional complaints, except as documented Psychiatric Psychiatric: Reports system reviewed and no additional complaints, except as documented Endocrine Endocrine: Reports system reviewed and no additional complaints, except as documented Hematologic/Lymphatic Hematologic/Lymphatic: Reports system reviewed and no additional complaints, except as documented Allergic/Immunologic Allergic/Immunologic: Reports system reviewed and no additional complaints, except as documented Exam Data for Last 24 hours Vital signs and Labs for Last 24 Hours: Temp Pulse Resp BP Pulse Ox O2 Del Method O2 Flow Rate 98.1 F 102 H 20 116/45 L 94 L Room Air 2 05/20/24 08:00 05/20/24 13:15 05/20/24 13:15 05/20/24 13:15 05/20/24 13:15 05/20/24 13:15 05/20/24 00:00 Laboratory Results - last 24 hr 05/19/24 14:20: APTT 38.2 L 05/19/24 14:41: WBC 4.9, RBC 4.71, Hgb 14.9, Hct 43.8, MCV 93.0, MCH 31.6 H, MCHC 34.0, RDW 14.6, Plt Count 140 L, MPV 11.0 H, Neut % (Auto) 72.2, Lymph % (Auto) 20.3, [place] % (Auto) 6.3, Eos % (Auto) 0.6, Baso % (Auto) 0.4, Neut # (Auto) 3.6, Lymph # (Auto) 1.0, [place] # (Auto) 0.3, Eos # (Auto) 0.0, Baso # (Auto) 0.0, HCV Ab ZEESHAN w/Rflx PCR Qn Negative, HIV Ag/Ab Combo Qual Negative 05/19/24 15:54: Sodium 133 L, Potassium 4.2, Chloride 101, Carbon Dioxide 26, Anion Gap 10.2, BUN 12, Creatinine 0.80, Estimated Creat Clear 54, Estimated GFR 93, Est GFR ( Amer) 112, Glucose 113 H, Calcium 8.8, Total Bilirubin 0.9, AST 21, ALT 12, Alkaline Phosphatase 117, Troponin I 0.91 H, Total Protein 6.1 L , Albumin 3.6, Globulin 2.5, Albumin/Globulin Ratio 1.4 05/19/24 15:56: VBG pH 7.41, VBG pCO2 34.5 L, VBG pO2 111.3 H, VBG HCO3 21.3 L, VBG Total CO2 22.4 L, VBG O2 Saturation 97.9 H, VBG Base Excess -3.3 L, VBG Lactic Acid 1.0 05/19/24 18:49: Troponin I 0.89 H, NT-Pro-B Natriuret Pep 3580 H 05/19/24 20:31: Chlamy pneumoniae PCR Not detected, Adenovirus (PCR) Not detected, B. pertussis DNA (PCR) Not detected, Coronavirus OC43 (PCR) Not detected, Coronavirus HKU1 (PCR) Not detected, Coronavirus 229E (PCR) Not detected, SARS-CoV-2 (PCR) Not detected, Coronavirus NL63 (PCR) Not detected, Human Metapneumovir PCR Detected A, Influenza A (H1) PCR Not detected, Influ A (H1N1/09) PCR Not detected, Influenza A (H3) PCR Not detected, Influenza Type A (PCR) Not detected, Influenza Type B (PCR) Not detected, M. pneumoniae (PCR) Not detected, Parainfluenza 1 (PCR) Not detected, Parainfluenza 2 (PCR) Not detected, Parainfluenza 3 (PCR) Not detected, Parainfluenza 4 (PCR) Not detected, RSV (PCR) Not detected, Entero/Rhino (PCR) Not detected 05/19/24 21:54: Troponin I 0.86 H 05/20/24 01:23: APTT > 139.0 H* 05/20/24 06:20: WBC 2.3 L D, RBC 4.74, Hgb 14.8, Hct 44.6, MCV 94.1 H, MCH 31.2, MCHC 33.2, RDW 14.5, Plt Count 143, MPV 10.6 H, Neut % (Auto) 69.9, Lymph % (Auto) 24.5, [place] % (Auto) 3.4, Eos % (Auto) 1.3, Baso % (Auto) 0.0 L, Neut # (Auto) 1.6 L, Lymph # (Auto) 0.6 L, [place] # (Auto) 0.1, Eos # (Auto) 0.0, Baso # (Auto) 0.0, Sodium 136, Potassium 3.9, Chloride 100, Carbon Dioxide 27, Anion Gap 12.9, BUN 16 D, Creatinine 1.00 D, Estimated Creat Clear 52, Estimated GFR 72, Est GFR ( Amer) 87 D, Glucose 180 H D, Calcium 8.9, Magnesium 2.3, Total Bilirubin 0.6, AST 24, ALT 19 D, Alkaline Phosphatase 117, Total Protein 6.2 L, Albumin 3.7, Globulin 2.5, Albumin/Globulin Ratio 1.5, Triglycerides 153 H, Cholesterol 135 L, LDL Cholesterol Direct 75.31 L, VLDL Cholesterol 31, HDL Cholesterol 33 L, Cholesterol/HDL Ratio 4.1 H 05/20/24 08:32: APTT 58.7 I & O for Last 24 hours: Intake & Output 05/17/24 05/18/24 05/19/24 05/20/24 23:59 23:59 23:59 23:59 Intake Total 245 / 245 Output Total 300 / 300 Balance -55 / -55 Weight 139 lb 6 oz 140 lb 14.006 oz Constitutional Constitutional: no acute distress and average body habitus *Routine HEENT Exam Head: Present normocephalic and atraumatic ENT: Present mucous membranes moist *Routine Neck Exam Neck: Present supple, full ROM and normal carotid upstroke; Absent JVD, carotid bruit or lymphadenopathy *Routine Respiratory Exam Respiratory: Present CTA bilaterally, normal respiratory effort, able to speak in complete sentences and symmetric chest movement *Routine Cardiovascular Exam Cardiovascular: Present Normal S1, Normal S2, tachycardia and irregularly irregular; Absent murmur or gallop *Routine Abdominal Exam Abdominal: Present soft and normoactive bowel sounds; Absent tenderness, distended or organomegaly *Routine Extremities Exam Extremities: Present full ROM, pulses intact, normal capillary refill and amputation (RLE); Absent cyanosis, clubbing or edema *Routine Skin Exam Skin: Present intact and warm; Absent erythema *Routine Neurological Exam Neurological: Present alert, oriented X3 and CN II-XII intact; Absent sensory deficit or motor deficit Routine Psychiatric Exam Psychiatric: Present normal affect Meds Home Medications and Allergies Home Medications ?Medication ?Instructions ?Recorded ?Confirmed ?Type ezetimibe 10 mg-simvastatin 40 mg 1 tab PO HS 07/11/17 05/19/24 History tablet lansoprazole 30 mg capsule,delayed 30 mg PO DAILY 09/27/22 05/19/24 History release levocetirizine 5 mg tablet 5 mg PO DAILY 09/27/22 05/19/24 History trazodone 100 mg tablet 100 mg PO HS 09/27/22 05/19/24 History fluticasone fur. 100 mcg-umeclid 1 inh inhalation DAILY 01/29/23 05/19/24 History 62.5 mcg-vilant 25 mcg inhalat.powder (Trelegy Ellipta) apixaban 5 mg tablet (Eliquis) 5 mg PO BID 03/28/24 05/19/24 History duloxetine 60 mg capsule,delayed 60 mg PO DAILY 03/28/24 05/19/24 History release famotidine 20 mg tablet 20 mg PO BID 03/28/24 05/20/24 History fluticasone propionate 50 1 spray intranasal DAILY 03/28/24 05/19/24 History mcg/actuation nasal spray,suspension potassium chloride 20 mEq 20 meq PO DAILY 03/28/24 05/19/24 History tablet,extended release(part/cryst) tamsulosin 0.4 mg capsule 0.4 mg PO HS 03/28/24 05/19/24 History metoprolol tartrate 50 mg tablet 50 mg PO BID 03/29/24 05/19/24 History dutasteride 0.5 mg capsule 0.5 mg PO DAILY 04/29/24 05/19/24 History New Prescriptions to Start Prescriptions: Allergies Allergy/AdvReac Type Severity Reaction Status Date / Time No Known Allergies Allergy Verified 04/29/24 19:18 Assessment and Plan *Assessment and plan (1) Acute non-ST elevation myocardial infarction (NSTEMI): Status: Acute Category: Medical Code(s): I21.4 - Non-ST elevation (NSTEMI) myocardial infarction (2) CAD (coronary artery disease): Status: Chronic Qualifiers: Coronary Disease-Associated Artery/Lesion type: [place] artery [place] vs. transplanted heart: [place] heart Associated angina: without angina Qualified Code(s): I25.10 - Atherosclerotic heart disease of [place] coronary artery without angina pectoris Category: Medical Code(s): I25.10 - Atherosclerotic heart disease of [place] coronary artery without angina pectoris (3) HTN (hypertension): Status: Chronic Qualifiers: Hypertension type: essential hypertension Qualified Code(s): I10 - Essential (primary) hypertension Category: Medical Code(s): I10 - Essential (primary) hypertension (4) HLD (hyperlipidemia): Status: Chronic Qualifiers: Hyperlipidemia type: mixed hyperlipidemia Qualified Code(s): E78.2 - Mixed hyperlipidemia Category: Medical Code(s): E78.5 - Hyperlipidemia, unspecified (5) HFrEF (heart failure with reduced ejection fraction): Status: Acute Category: Medical Code(s): I50.20 - Unspecified systolic (congestive) heart failure (6) PAD (peripheral artery disease): Status: Chronic Category: Medical Code(s): I73.9 - Peripheral vascular disease, unspecified (7) Stenosis of carotid artery: Status: Acute Qualifiers: Laterality: bilateral Qualified Code(s): I65.23 - Occlusion and stenosis of bilateral carotid arteries Category: Medical Code(s): I65.29 - Occlusion and stenosis of unspecified carotid artery (8) Right lower lobe pneumonia: Status: Acute Qualifiers: Pneumonia type: due to unspecified organism Qualified Code(s): J18.9 - Pneumonia, unspecified organism Category: Medical Code(s): J18.9 - Pneumonia, unspecified organism (9) Urinary tract infectious disease: Status: Acute Qualifiers: Hematuria presence: with hematuria Urinary tract infection type: site unspecified Qualified Code(s): N39.0 - Urinary tract infection, site not specified; R31.9 - Hematuria, unspecified Category: Medical Code(s): N39.0 - Urinary tract infection, site not specified (10) Acute exacerbation of chronic obstructive pulmonary disease: Status: Acute Category: Medical Code(s): J44.1 - Chronic obstructive pulmonary disease with (acute) exacerbation (11) Atypical angina: Status: Acute Category: Medical Code(s): I20.89 - Other forms of angina pectoris Plan Plan: 1. The patient presented to the hospital with shortness of breath that significantly worsen over the past 2 to 3 days prior to admission. He did have an elevated troponin consistent with a non-STEMI. Will plan to proceed with left cardiac catheterization today to evaluate for his coronary artery disease. He has known 5 vessel CABG in 1994. High pretest likelihood for coronary artery disease progression and shortness of breath being his atypical angina. Continue aspirin 81 mg daily. 2. The patient has been educated on this and benefits of proceeding with left cardiac catheterization. Patient verbalized understanding and is agreeable in proceeding with the procedure. 3. The patient will be n.p.o. in preparation for left cardiac catheterization. 4. We will obtain an echocardiogram to evaluate his LV function. The patient has a known history of HFrEF with an ejection fraction of 45% now with a non- STEMI so we want to reevaluate his ejection fraction. 5. His blood pressure is well-controlled. 6. His LDL goal is less than 55. His LDL is 75. Stop simvastatin and switch him to Lipitor 80 mg p.o. nightly. 7. The patient has chronic atrial fibrillation. He is currently slightly tachycardic. His metoprolol has been restarted. 8. The patient is on long-term anticoagulation with Eliquis. This is currently being held and he is on a heparin drip. Following his cardiac catheterization we will get him restarted on Eliquis. 9. The patient does have an enlarged prostate and is supposed to undergo a TURP procedure next month. Given his non-STEMI and atypical angina we will need to evaluate his coronary arteries prior to him proceeding with this surgery. 10. The patient does have a AAA status post repair. CT in March 2024 shows this is stable. 11. The patient does have a history of carotid artery stenosis. Will obtain a CNI to reevaluate his SEBASTIAN. 12. The patient does have COPD. Will defer this to the hospitalist/pulmonology. 13. Further recommendations were made pending the patient's response to treatment and the results of his echocardiogram and left cardiac catheterization today. Thank you for the opportunity to help participate in the care of this patient. All recommendations and orders are per Dr. Roberts. Addendum: Echocardiogram shows an ejection fraction of 45%. Patient will need to be on appropriate GDMT. Once his blood pressure improves Left cardiac catheterization shows severe coronary artery disease. The patient has successful stenting of the saphenous vein graft to the right coronary artery with 1 drug-eluting stent and successful stenting of the saphenous vein graft to the first diagonal artery with 1 drug-eluting stent.
[2024-05-20] MEDS: CLOPIDOGREL 300MG TABLET 600 MG PO (13:42)
[2024-05-20] MEDS: PROTAMINE SULFATE 50MG/5ML VIAL (CATH LAB) 50 MG IV (14:05)
[2024-05-20] MEDS: IOPAMIDOL-370 (76%);100ML BOTTLE 125 ML IV (14:09)
[2024-05-20 14:13] LABS: CATHL Activated Clotting Time 367 SEC (74-125)
--- NOTE | 2024-05-20 17:07 | PC.NURSE ---
Pt is resting in bed post heart cath via femoral site with manual pressure. DSG is C/D/I. No hematoma noted. Pt denies any discomfort. Pulses 2+. Pt in supine position until 2029 this evening. Call light within reach. Family in room.
--- NOTE | 2024-05-20 17:28 | CA_ITS ---
APPROVED REPORT EXAM: Comprehensive 2D, Doppler, and color-flow Echocardiogram Data Control Clerk Supervisor: Blanche Villagomez CRT Ht: 5 ft 4 in Wt: 140lbs BSA: 1.68 BP: 132/90 mmHg Indications: NSTEMI, HTN, AAA, AFIB, CALEB,SEBASTIAN, CABG X5 1994, HTN, HLD, SMOKER Limited images, poor ultrasound windows M-Mode Dimensions LA Diam 5.07 cm (1.9-4.0) LV Diastology E Decel Time 133 (160-240 msec) E/A Ratio 3.04 Aortic Valve AO Peak GR. 4.80 mmHg Mitral Valve MV E Max Jimmie. 71.0 (40-130 cm/s) MV A Velocity 23.0 (40-130 cm/s) E/A Ratio 3.04 MV PHT 39.0 ms Tricuspid Valve TR P. Velocity 223.00 cm/s RAP Estimate 10.00 mmHg RVSP 29.90 mmHg Left Ventricle The left ventricle is normal size. The left ventricular systolic function is mildly reduced. There is increased LV wall thickness. There is mild global hypokinesis present. The septum is asynchronous. Diastolic function is indeterminate. LVEF is 40-45%. Right Ventricle The right ventricle is normal size. The right ventricular systolic function is normal. Atria Left atrium is moderately dilated. Right atrium is mildly dilated. There is no Doppler evidence of interatrial shunt. Aortic Valve Aortic valve is mildly thickened. Trace aortic regurgitation. There is no aortic valvular stenosis. Mitral Valve The mitral valve is normal in structure. Mild mitral regurgitation. Tricuspid Valve Tricuspid valve is grossly normal in structure and function. Mild tricuspid regurgitation. RVSP is 20-25 mmHg. Pulmonic Valve The pulmonary valve is normal in structure. Trace pulmonic regurgitation. Great Vessels The aortic root is normal in size. IVC is normal in size and collapses >50% with inspiration. Pericardium There is no pericardial effusion. Other Information Study Quality: Fair Conclusion Mildly reduced LV systolic function (LVEF 40-45%). Biatrial dilation. Mild MR, mild TR. Electronically signed by : Polly Roberts MD 05/20/2024 22:23:50
[2024-05-20 18:08] LABS: Microscopic, Urine URINE MICROSCOPIC (MICROSCOPIC)
[2024-05-20 18:09] LABS: Bilirubin,Urine Negative (Negative); Blood, Urine 2+ (Negative); Color,Urine YELLOW (Yellow); Glucose,Urine (UA) Negative (Negative); Ketones,Urine Negative (Negative); Leukocyte Esterase,Urine Negative (Negative); Nitrate,Urine Negative (Negative); Protein,Urine Negative (Negative); Urobilinogen,Urine 0.2 EU/dl (0.2)
[2024-05-20 18:12] LABS: Appearance,Urine Slightly Cloudy (Clear)
[2024-05-20] MEDS: CEFTRIAXONE 1 GM 1 GM in 0.9 % SODIUM CHLORIDE 50 ML IV (18:50)
[2024-05-20 19:01] LABS: WBC,Urine Occasional #/hpf (0-3)
[2024-05-20 19:02] LABS: Bacteria,Urine Trace /lpf
--- NOTE | 2024-05-20 20:11 | EXP.PN ---
Subjective *Date: 05/20/24 *Time: 23:09 Interval history: Patient feels well after [facility] today. Received 2 stents. Breathing also improved. Exam Data for Last 24 hours Vital signs and Labs for Last 24 Hours: Temp Pulse Resp BP Pulse Ox O2 Del Method O2 Flow Rate 97.4 F L 94 H 16 136/75 95 Room Air 2 05/20/24 17:00 05/20/24 19:00 05/20/24 19:00 05/20/24 19:00 05/20/24 19:00 05/20/24 19:00 05/20/24 15:32 Laboratory Results - last 24 hr 05/19/24 20:31: Chlamy pneumoniae PCR Not detected, Adenovirus (PCR) Not detected, B. pertussis DNA (PCR) Not detected, Coronavirus OC43 (PCR) Not detected, Coronavirus HKU1 (PCR) Not detected, Coronavirus 229E (PCR) Not detected, SARS-CoV-2 (PCR) Not detected, Coronavirus NL63 (PCR) Not detected, Human Metapneumovir PCR Detected A, Influenza A (H1) PCR Not detected, Influ A (H1N1/09) PCR Not detected, Influenza A (H3) PCR Not detected, Influenza Type A (PCR) Not detected, Influenza Type B (PCR) Not detected, M. pneumoniae (PCR) Not detected, Parainfluenza 1 (PCR) Not detected, Parainfluenza 2 (PCR) Not detected, Parainfluenza 3 (PCR) Not detected, Parainfluenza 4 (PCR) Not detected, RSV (PCR) Not detected, Entero/Rhino (PCR) Not detected 05/19/24 21:54: Troponin I 0.86 H 05/20/24 01:23: APTT > 139.0 H* 05/20/24 06:20: WBC 2.3 L D, RBC 4.74, Hgb 14.8, Hct 44.6, MCV 94.1 H, MCH 31.2, MCHC 33.2, RDW 14.5, Plt Count 143, MPV 10.6 H, Neut % (Auto) 69.9, Lymph % (Auto) 24.5, [place] % (Auto) 3.4, Eos % (Auto) 1.3, Baso % (Auto) 0.0 L, Neut # (Auto) 1.6 L, Lymph # (Auto) 0.6 L, [place] # (Auto) 0.1, Eos # (Auto) 0.0, Baso # (Auto) 0.0, Sodium 136, Potassium 3.9, Chloride 100, Carbon Dioxide 27, Anion Gap 12.9, BUN 16 D, Creatinine 1.00 D, Estimated Creat Clear 52, Estimated GFR 72, Est GFR ( Amer) 87 D, Glucose 180 H D, Calcium 8.9, Magnesium 2.3, Total Bilirubin 0.6, AST 24, ALT 19 D, Alkaline Phosphatase 117, Total Protein 6.2 L, Albumin 3.7, Globulin 2.5, Albumin/Globulin Ratio 1.5, Triglycerides 153 H, Cholesterol 135 L, LDL Cholesterol Direct 75.31 L, VLDL Cholesterol 31, HDL Cholesterol 33 L, Cholesterol/HDL Ratio 4.1 H 05/20/24 08:32: APTT 58.7 05/20/24 12:50: Activated Clotting Time 367 H* 05/20/24 18:00: Urine Color Yellow, Urine Appearance Slightly cloudy, Urine pH 6.0, Ur Specific [place] 1.020, Urine Protein Negative, Urine Glucose (UA) Negative, Urine Ketones Negative, Urine Blood 2+ A, Urine Nitrate Negative, Urine Bilirubin Negative, Urine Urobilinogen 0.2, Ur Leukocyte Esterase Negative, Urine RBC 3-5, Urine WBC Occasional, Ur Squamous Epith Cells None, Urine Bacteria Trace I & O for Last 24 hours: Intake & Output 05/17/24 05/18/24 05/19/24 05/20/24 23:59 23:59 23:59 23:59 Intake Total 245 / 245 Output Total 300 / 300 Balance -55 / -55 Weight 63.219 kg 63.9 kg Microbiology Reports for the Last 24 Hours: Microbiology 05/19/24 16:21 Blood Blood Culture - Preliminary NO GROWTH AFTER 24 HOURS 05/19/24 15:54 Blood Blood Culture - Preliminary NO GROWTH AFTER 24 HOURS Constitutional Constitutional: no acute distress *Routine HEENT Exam Head: Present normocephalic Eye: Present EOMI and PERRL ENT: Present mucous membranes moist *Routine Neck Exam Neck: Present supple; Absent lymphadenopathy *Routine Respiratory Exam Respiratory: Present CTA bilaterally *Routine Cardiovascular Exam Cardiovascular: Present RRR *Routine Abdominal Exam Abdominal: Present soft and normoactive bowel sounds; Absent tenderness *Routine Rectal Exam Patient deferred: visual exam *Routine Exam Patient deferred: penile exam *Routine Extremities Exam Extremities: Absent cyanosis, clubbing or edema Comments: Absent right lower extremity, AKA *Routine Skin Exam Skin: Present warm; Absent rash *Routine Neurological Exam Neurological: Present alert and oriented X3 Comments: Oriented to self and place. Confused on time. 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 Patient states he has been coughing more recently with yellow phlegm, but denies chest pains, fever/chills, abdominal pain, urinary symptoms. On arrival, patient had restricted airways on room air which improved slightly after breathing treatments and steroids. Patient continued to have tachypnea, but troponin also resolved and 0.91. Other workup unremarkable. Case discussed ED provider and decision was made to admit patient for COPD exacerbation and NSTEMI. #NSTEMI #LV dysfunction #History of HFrEF #History of renal artery stenosis ? Presented with shortness of breath in the setting of suspected COPD exacerbation. Initial troponin 0.91, EKG without acute ischemic changes. ? History of CABG x 5 in 1994, renal artery stenosis, AAA. Current longstanding smoker. ? Cardiology consulted, s/p PCI with SUSIE x 2 in RCA graft, first diagonal artery graft. Patient tolerated procedure well. Heparin drip discontinued. ? Aspirin 81 mg, Plavix 75 mg, metoprolol tartrate 50 mg twice daily, atorvastatin 40 mg. ? ECHO shows LVEF 45%. No signs of volume overload. ? Spoke with Dr. Howard, recommended monitoring signs of hematoma overnight in the femoral access due to large gauge catheter. #COPD exacerbation #Community-acquired pneumonia #Human metapneumovirus ? Presented with shortness of breath, diffuse wheezing across all lung krause though patient has a chronic wheezer. Yellow productive cough. ? CXR shows right lower lobe infiltrates. Respiratory panel positive for human metapneumovirus. ? Patient states his breathing has improved today, continues to have diffuse mild wheezing that is likely chronic. ? DuoNebs every 6 hours, Pulmicort twice daily. ? Ceftriaxone, azithromycin day 2. ? Prednisone 40 mg day 2. ? Follow-up sputum, blood cultures. #A-fib ? Currently rate controlled. Continue home metoprolol tartrate, Eliquis. #AAA s/p repair #Right AKA #Current smoker ? Had thrombus to right lower extremity during AAA surgery s/p right AKA. ? Continues to smoke after stopping for years. Extensively counseled, nicotine patch daily. #BPH ? Continue home tamsulosin. Full code DVT prophylaxis: Received heparin bolus for LHC. Resume Home Eliquis tomorrow.
[2024-05-20] MEDS: PANTOPRAZOLE 40MG TABLET 40 MG PO (20:45)
[2024-05-20] MEDS: TAMSULOSIN 0.4MG CAPSULE 0.4 MG PO (20:45)
[2024-05-20] MEDS: ATORVASTATIN 40MG TABLET 80 MG PO (20:45)
[2024-05-20] MEDS: TRAZODONE 50MG TABLET 100 MG PO (20:46)
--- NOTE | 2024-05-20 23:41 | PC.NURSE ---
Pt removed IV and stated he didnt need it, when this nurse asked to replace IV Pt stated no it wasn't a good idea, he didn't want another one. Will attempt to replace at another time
[2024-05-21] VITALS (9 sets, daily range): BP systolic 103–138; BP diastolic 54–78; PULSE 47–100; RESP 16; TEMP 36.4–36.7; O2SAT 94–97; BMI 52.9
[2024-05-21] MEDS: LEVALBUTEROL 1.25MG/3ML NEB 1.25 MG IH ×2 (05:21→12:59)
[2024-05-21] MEDS: IPRATROPIUM BROMIDE 0.5 MG/2.5ML SOLUTION IH ×2 (05:21→12:59)
[2024-05-21] MEDS: BUDESONIDE 0.5MG/2ML NEB 0.5 MG IH (05:21)
[2024-05-21 06:43] LABS: Basophils % 0.2 % (0.1-2.0); Eosinophils % 0.2 % (0.1-12.0); Hematocrit 40.5 % (42.0-52.0); Lymphocytes # 1.3 K/mm3 (0.7-4.5); Lymphocytes % 21.6 % (10-50); Mean Corpuscular HGB Conc 32.8 g/dL (31.8-35.4); Mean Corpuscular Hemoglobin 30.9 pg (27.0-31.2); Mean Platelet Volume 10.5 fl (7.4-10.4); Monocytes # 0.4 K/mm3 (0.1-1.0); Monocytes % 5.7 % (1.7-9.3); Neutrophils # 4.4 K/mm3 (1.8-7.8); Neutrophils % 72.3 % (37.0-80.0); Platelet Count 128 K/mm3 (142-424); Red Blood Count 4.31 M/mm3 (4.60-6.20); Red Cell Distribution Width 14.5 % (11.5-17.5); White Blood Count 6.1 K/mm3 (4.8-10.8)
[2024-05-21 06:49] LABS: Albumin Level 3.1 g/dl (3.5-5.0); Chloride 107 mmol/L (98-107); Sodium 137 mmol/L (136-145)
[2024-05-21 06:51] LABS: Alanine Aminotransferase 14 U/L (12-78); Aspartate Amino Transferase 20 U/L (17-59); Blood Urea Nitrogen 19 mg/dl (9-20); Creatinine Clearance Estimated 49 mL/min (50-200); Estimated Glomerular Filt Rate 81 ml/min (>60); GFR (African American) 98 ML/MIN (>60)
[2024-05-21 06:52] LABS: Albumin/Globulin Ratio 1.4 (1.1-1.8); Alkaline Phosphatase 87 U/L (38-126); Bilirubin,Total 0.6 mg/dl (0.2-1.3); Calcium 8.3 mg/dl (8.4-10.2); Carbon Dioxide 28 mmol/L (22.0-30.0); Globulin 2.2 g/dL (1.3-3.2); Glucose 93 mg/dl (74-100); Total Protein,Serum 5.3 g/dl (6.3-8.2)
[2024-05-21 06:57] LABS: Hemoglobin 13.3 g/dL (14.1-18.0)
--- NOTE | 2024-05-21 06:57 | PC.NURSE ---
This nurse attempted to replace IV again this shift and Pt refused. Pt did try to get out of bed several times this shift but was easily redirected. Pt dressing to right groin remains clean and intact. pt denies pain. Pt alarm is set and active at this time.
[2024-05-21] MEDS: SODIUM CHLORIDE 3% 15ML NEB 3 ML IH (08:17)
[2024-05-21] MEDS: ASPIRIN EC 81MG TABLET 81 MG PO (08:41)
[2024-05-21] MEDS: EMPAGLIFLOZIN 10MG TABLET 10 MG PO (08:41)
[2024-05-21] MEDS: METOPROLOL TARTRATE 50MG TABLET 50 MG PO (08:42)
[2024-05-21] MEDS: APIXABAN 5MG TABLET 5 MG PO (08:42)
[2024-05-21] MEDS: SACUBITRIL/VALSARTAN 24-26MG TABLET 1 EACH PO (08:42)
[2024-05-21] MEDS: AZITHROMYCIN 250MG TABLET 250 MG PO (08:42)
[2024-05-21] MEDS: CLOPIDOGREL 75MG TAB 75 MG PO (08:42)
[2024-05-21] MEDS: DULOXETINE 30MG CAPSULE.DR 60 MG PO (08:43)
--- NOTE | 2024-05-21 09:58 | EXP.CARD.PN ---
Subjective Subjective Date: 05/21/24 Time: 08:30 Principal diagnosis: NSTEMI Interval history: This is an 83-year-old gentleman who presented to the emergency department with shortness of breath. He was found to have a non-STEMI. Patient underwent left cardiac catheterization yesterday and had stenting to his saphenous vein graft to the right coronary artery x 1 and stenting to the saphenous vein graft to the first diagonal artery x 1. He tolerated the procedure well. He will be on aspirin and Plavix for dual antiplatelet therapy. This morning he states that his shortness of breath has not changed. He still has a cough and not coughing up much sputum at this time. He states that he does feel like he needs to be back on Lasix. He denies any chest pain or pressure. He denies any edema. He denies any fever, chills, nausea, vomiting, diarrhea, PND orthopnea. Exam Data for Last 24 hours Vital signs and Labs for Last 24 Hours: Temp Pulse Resp BP Pulse Ox O2 Del Method O2 Flow Rate 98.1 F 64 16 138/78 95 Room Air 2 05/21/24 07:49 05/21/24 08:17 05/21/24 08:17 05/21/24 07:49 05/21/24 07:49 05/21/24 09:00 05/20/24 15:32 Laboratory Results - last 24 hr 05/20/24 12:50: Activated Clotting Time 367 H* 05/20/24 18:00: Urine Color Yellow, Urine Appearance Slightly cloudy, Urine pH 6.0, Ur Specific [place] 1.020, Urine Protein Negative, Urine Glucose (UA) Negative, Urine Ketones Negative, Urine Blood 2+ A, Urine Nitrate Negative, Urine Bilirubin Negative, Urine Urobilinogen 0.2, Ur Leukocyte Esterase Negative, Urine RBC 3-5, Urine WBC Occasional, Ur Squamous Epith Cells None, Urine Bacteria Trace 05/21/24 06:08: WBC 6.1 D, RBC 4.31 L, Hgb 13.3 L D, Hct 40.5 L, MCV 94.0, MCH 30.9, MCHC 32.8, RDW 14.5, Plt Count 128 L, MPV 10.5 H, Neut % (Auto) 72.3, Lymph % (Auto) 21.6, [place] % (Auto) 5.7, Eos % (Auto) 0.2, Baso % (Auto) 0.2, Neut # (Auto) 4.4, Lymph # (Auto) 1.3, [place] # (Auto) 0.4, Eos # (Auto) 0.0, Baso # (Auto) 0.0, Sodium 137, Potassium 4.0, Chloride 107, Carbon Dioxide 28, Anion Gap 6.0, BUN 19, Creatinine 0.90, Estimated Creat Clear 49, Estimated GFR 81, Est GFR ( Amer) 98, Glucose 93 D, Calcium 8.3 L, Magnesium 2.0 D, Total Bilirubin 0.6, AST 20, ALT 14 D, Alkaline Phosphatase 87, Total Protein 5.3 L, Albumin 3.1 L D, Globulin 2.2, Albumin/Globulin Ratio 1.4 I & O for Last 24 hours: Intake & Output 05/18/24 05/19/24 05/20/24 05/21/24 23:59 23:59 23:59 23:59 Intake Total 245 / 725 760 / 760 Output Total 300 / 300 Balance -55 / 425 760 / 760 Weight 139 lb 6 oz 140 lb 14.006 oz 310 lb 6.574 oz Microbiology Reports for the Last 24 Hours: Microbiology 05/19/24 16:21 Blood Blood Culture - Preliminary NO GROWTH AFTER 24 HOURS 05/19/24 15:54 Blood Blood Culture - Preliminary NO GROWTH AFTER 24 HOURS Radiology Reports for the Last 24 Hours: Echocardiogram shows: Mildly reduced LV systolic function (LVEF 40-45%). Biatrial dilation. Mild MR, mild TR. Narrative: Left heart cath shows: The left main artery Normal The left anterior descending artery Has stents in the proximal and mid segment which are widely patent with minimal in-stent restenosis. There is a mid LAD concentric calcified 80% stenosis and a vessel barely 2 mm in diameter followed by an additional 70% stenosis also in a vessel slightly less than 2 mm in diameter. The LAD then continues down and wraps the apex. The caliber of the mid LAD does not exceed 2 mm The circumflex artery Proximally occluded The right coronary artery Occluded at mid vessel The CHOUDHURY ventriculogram reveals Ejection fraction 35 to 40% with inferior and apical severe hypokinesis The left ventricular end-diastolic pressure 20 mmHg CHAN to LAD occluded Saphenous to right coronary artery has a mid vessel concentric 70 to 80% stenosis Saphenous to first diagonal artery has a mid vessel 50-60 and then 70% stenosis IMPRESSION Coronary disease as described above Successful stenting of the saphenous vein graft to the right coronary artery severe disease was to 0% with 1 drug-eluting stent Successful stenting of the saphenous vein graft to the first diagonal artery severe disease reduced to 0% with 1 drug-eluting stent PLAN 1. Dual antiplatelet therapy 2. Cardiac rehabilitation 3. Avoidance of tobacco products 4. Official echocardiogram to determine if ejection fraction is less than 35%. If so we will consider LifeVest 5. LDL less than 55 achieved with high intensity statin 6. Standard therapy for LV dysfunction Constitutional Constitutional: no acute distress and average body habitus *Routine HEENT Exam Head: Present normocephalic and atraumatic ENT: Present mucous membranes moist *Routine Neck Exam Neck: Present supple, full ROM and normal carotid upstroke; Absent JVD, carotid bruit or lymphadenopathy *Routine Respiratory Exam Respiratory: Present CTA bilaterally, normal respiratory effort, able to speak in complete sentences and symmetric chest movement *Routine Cardiovascular Exam Cardiovascular: Present Normal S1, Normal S2 and irregularly irregular; Absent murmur or gallop *Routine Abdominal Exam Abdominal: Present soft and normoactive bowel sounds; Absent tenderness, distended or organomegaly *Routine Extremities Exam Extremities: Present full ROM, pulses intact, normal capillary refill and amputation (RLE); Absent cyanosis, clubbing or edema *Routine Skin Exam Skin: Present intact and warm; Absent erythema *Routine Neurological Exam Neurological: Present alert, oriented X3 and CN II-XII intact; Absent sensory deficit or motor deficit Routine Psychiatric Exam Psychiatric: Present normal affect Progress Note: A&P Assessment and plan (1) Acute non-ST elevation myocardial infarction (NSTEMI): Status: Acute (2) Atypical angina: Status: Acute (3) CAD (coronary artery disease): Status: Chronic (4) HTN (hypertension): Status: Chronic (5) HLD (hyperlipidemia): Status: Chronic (6) HFrEF (heart failure with reduced ejection fraction): Status: Acute (7) PAD (peripheral artery disease): Status: Chronic (8) Stenosis of carotid artery: Status: Acute (9) Acute exacerbation of chronic obstructive pulmonary disease: Status: Acute Assessment and Plan Assessment and Plan for All Diagnoses:: Plan: 1. The patient presented to the hospital with shortness of breath that significantly worsen over the past 2 to 3 days prior to admission. He did have an elevated troponin consistent with a non-STEMI. The patient underwent left cardiac catheterization and had stenting to the saphenous vein graft to the right coronary artery and the saphenous vein graft to the first diagonal artery. He tolerated the procedure well. He will be on Plavix and aspirin for dual antiplatelet therapy. 2. The patient will be on triple therapy for 30 days with Plavix, aspirin and Eliquis. After 30 days he can stop aspirin and remain on Plavix and Eliquis. 3. His atrial fibrillation is rate controlled today. Continue metoprolol. 4. Acute on chronic HFrEF is present with an ejection fraction of 45%. No LifeVest is indicated at this time as his ejection fraction is 45%. 5. Will give him a dose of IV Lasix 40 mg today as well as start spironolactone 25 mg p.o. daily for HFrEF. 6. His blood pressure is well-controlled. 7. His LDL goal is less than 55. His LDL is 75. Stop simvastatin and switch him to Lipitor 80 mg p.o. nightly. 8. The patient has chronic atrial fibrillation and is rate controlled. On Eliquis for long-term anticoagulation. 9. Start Entresto 24/26 mg p.o. twice daily for HFrEF. His daughter reports that he used to be on this medications and she is not sure whether or not he is taking it now. 10. Start Jardiance 10 mg daily for HFrEF. 11. The patient does have a AAA status post repair. CT in March 2024 shows this is stable. 12. The patient does have a history of carotid artery stenosis. CNI was not obtained yesterday due to the patient having a history of vascular disease. He will need a CTA of the neck which can be done on an outpatient basis. 13. The patient does have COPD. Will defer this to the hospitalist/pulmonology. 14. The patient does have an enlarged prostate. He reports needing a TURP procedure in May. He will need to remain on his dual antiplatelet therapy for at least 30 days before considering holding this for procedure. 15. Further recommendations will be made pending the patient's response to treatment. Thank you for the opportunity to help participate in the care of this patient. All recommendations and orders are per Dr. Roberts.
[2024-05-21] MEDS: FUROSEMIDE 40MG/4ML VIAL 40 MG IV (10:00)
[2024-05-21] MEDS: SPIRONOLACTONE 25MG TABLET 25 MG PO (10:00)
--- NOTE | 2024-05-21 10:38 | HMH.PTEV ---
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 Patient states he has been coughing more recently with yellow phlegm, but denies chest pains, fever/chills, abdominal pain, urinary symptoms. On arrival, patient had restricted airways on room air which improved slightly after breathing treatments and steroids. Patient continued to have tachypnea, but troponin also resolved and 0.91. Other workup unremarkable. Case discussed ED provider and decision was made to admit patient for COPD exacerbation and NSTEMI. Pt reports he lives with his daughter, ramp to enter the home, and he is generally independent with transfers to w/c. He does have a prosthetic leg for R LE AKA , but has not used it for raj etime due to poor fit currently. Subjective Subjective Pt reports no pain at this time, feels better in general. 2 stents placed yesterday. Agrees to mobility assessment. [facility] How much help from another person do you currently need... Turning from your back to your side None while in a flat bed without using bedrails? Moving from lying on back to sitting on A little the side of a flat bed without using bedrails? Moving to and from a bed to a chair ( A little including a wheelchair)? Standing up from a chair using your arms A little ? (e.g., wheelchair, bedside chair) Walking in hospital room? A lot Climbing 3-5 steps with a railing? Total Mobility Score 16 Mobility Level [facility] Mobility Calculator Mobility 5 Stand (1 or more minutes) Rehab PT IP Eval Objective Appearance Patient Behavior Appropriate Patient Orientation Person,Place,Time Difficulty following instructions none Speech Pattern Clear Ambulation Patient Able to Ambulate No Balance Ability to Arise Able, uses arms to help Sitting Balance Steady, safe Standing Balance Unsteady Dynamic Sitting Balance Ability Good Dynamic Standing Balance Ability Fair Transfers Bed Transfer Ability Supervision/Stand by Chair Transfer Ability Minimal x 1 (25% assist) Sit to Stand Bed Transfer Ability Contact Guard/Hand Hold Sit to Stand Chair Transfer Ability Contact Guard/Hand Hold ROM RLE PT ROM Status WFL MMT RLE PT MMT WFL Rehab PT IP prob,goals,plan Problems Date of Evaluation: 05/21/24 PT IP Problems Bed Mobility,Transfers Rehab Potential Rehab Potential Good Plan PT Intervention Plan Bed Mobility,Transfers PT Plan Frequency Daily Duration LOS Discharge Goals Bed Transfer Ability Independent Sit to Stand Chair Transfer Ability Supervision/Stand by Discharge Plan PT Discharge Plan Pt is currently appropriate to return home once medically stable for d/c. Hospital bed would likely help facilitate transfers at home. Recommend home health vs outpatient therapy as indicated after return home. Recommend follow up with rough rounder machine for fitting of R LE prosthetic leg . Eval Complexity Eval Charge Codes 69841 - High Complexity PHYSICIAN CERTIFICATION: I certify the specified therapy services for Ti Rodríguez are required, authorized, and reviewed every 30 days.
--- NOTE | 2024-05-21 10:50 | CT_ITS ---
FINAL REPORT TECHNIQUE: Noncontrast exam This study was performed with techniques to keep radiation doses as low as reasonably achievable, (ALARA). Individualized dose reduction techniques using automated exposure control or adjustment of mA and/or kV according to the patient's size were employed. CLINICAL HISTORY: confusion COMPARISON: 05/19/2023 FINDINGS: Mild atrophy and chronic ischemic white matter changes are noted. There has been interval resolution of the left subdural hematoma since the prior exam of 05/19/2023. No cortical edema is present. There is no mass or hemorrhage. Ventricles are normal. Left maxillary sinusitis is present. Bone windows show no skull fracture or obvious obstructive lesion. IMPRESSION: 1. No acute intracranial abnormality or obvious mass. 2. Mild atrophy and chronic ischemic white matter changes as above. Reviewed, Interpreted and Dictated by Que Anton MD Transcribed by Felicity Trejo Authenticated and . [facility]
--- NOTE | 2024-05-21 11:24 | SW/DCPLANNER ---
Spoke with patients daughter on the phone to see who her dad has for home health services and she stated that he has [facility]. I also let Jules white know that he was a patient at [facility]. I aslo talked to daughter in person and took her a sitters list from our resources to see if that will help her out with his care. Lalitha German
--- NOTE | 2024-05-21 13:01 | P.DS_ITS ---
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 Patient states he has been coughing more recently with yellow phlegm, but denies chest pains, fever/chills, abdominal pain, urinary symptoms. On arrival, patient had restricted airways on room air which improved slightly after breathing treatments and steroids. Patient continued to have tachypnea, but troponin also resolved and 0.91. Other workup unremarkable. Case discussed ED provider and decision was made to admit patient for COPD exacerbation and NSTEMI. 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 Patient states he has been coughing more recently with yellow phlegm, but denies chest pains, fever/chills, abdominal pain, urinary symptoms. On arrival, patient had restricted airways on room air which improved slightly after breathing treatments and steroids. Patient continued to have tachypnea, but troponin also resolved and 0.91. Other workup unremarkable. Case discussed ED provider and decision was made to admit patient for COPD exacerbation and NSTEMI. Patient responded well to workup and therapy. Cardiology consulted during admission. Stable to discharge home with home health. Problems addressed as follows: #NSTEMI #LV dysfunction #History of HFrEF #History of renal artery stenosis ? Presented with shortness of breath in the setting of suspected COPD exacerbation. Initial troponin 0.91, EKG without acute ischemic changes. History of CABG x 5 in 1994, renal artery stenosis, AAA. Current longstanding smoker. Cardiology consulted, s/p PCI with SUSIE x 2 in RCA graft, first diagonal artery graft on 05/20/24. Patient tolerated procedure well. Heparin drip discontinued. Patient started on aspirin 81 mg daily, Plavix 75 mg daily. Will need to continue triple therapy on aspirin, Plavix, Eliquis for 30 days and then discontinue aspirin and continue Plavix and Eliquis thereafter. Acute on chronic HFrEF is present with an ejection fraction of 45%. No LifeVest is indicated at this time as his ejection fraction is 45%. Received dose of Lasix on day of discharge. Initiate spironolactone 25 mg daily for HFrEF. LDL is 75, above goal of 55. Transition to Lipitor 80 mg nightly. - Start Entresto 24/26 mg p.o. twice daily along with Jardiance 10 mg daily for HFrEF. #COPD exacerbation #Community-acquired pneumonia #Human metapneumovirus ? Presented with shortness of breath, diffuse wheezing across all lung krause though patient has a chronic wheezer. Yellow productive cough. CXR shows right lower lobe infiltrates. Respiratory panel positive for human metapneumovirus. Patient states his breathing has improved. Able to wean to room air. Wheezes more or less resolved by day of discharge. Today, continues to have diffuse mild wheezing that is likely chronic. ? DuoNebs every 6 hours, Pulmicort twice daily. ? Ceftriaxone, azithromycin day 2. ? Prednisone 40 mg day 2. ? Follow-up sputum, blood cultures. #A-fib: Currently rate controlled. Continue home metoprolol tartrate, Eliquis. #AAA s/p repair #Right AKA #Current smoker ? Had thrombus to right lower extremity during AAA surgery s/p right AKA. Continues to smoke after stopping for years. Extensively counseled, nicotine patch daily. AAA from March [address] #BPH: Continue home tamsulosin. The patient does have an enlarged prostate. He reports needing a TURP procedure in May. He will need to remain on his dual antiplatelet therapy for at least 30 days before considering holding this for procedure. Total time spent on discharge 32 minutes in counseling, documentation, chart review, and direct care with patient. Exam Data for Last 24 hours Vital signs and Labs for Last 24 Hours: Temp Pulse Resp BP Pulse Ox O2 Del Method O2 Flow Rate 98.1 F 82 16 125/64 96 Room Air 2 05/21/24 07:49 05/21/24 12:59 05/21/24 11:57 05/21/24 11:57 05/21/24 11:57 05/21/24 12:58 05/20/24 15:32 Laboratory Results - last 24 hr 05/20/24 12:50: Activated Clotting Time 367 H* 05/20/24 18:00: Urine Color Yellow, Urine Appearance Slightly cloudy, Urine pH 6.0, Ur Specific [place] 1.020, Urine Protein Negative, Urine Glucose (UA) Negative, Urine Ketones Negative, Urine Blood 2+ A, Urine Nitrate Negative, Urine Bilirubin Negative, Urine Urobilinogen 0.2, Ur Leukocyte Esterase Negative, Urine RBC 3-5, Urine WBC Occasional, Ur Squamous Epith Cells None, Urine Bacteria Trace 05/21/24 06:08: WBC 6.1 D, RBC 4.31 L, Hgb 13.3 L D, Hct 40.5 L, MCV 94.0, MCH 30.9, MCHC 32.8, RDW 14.5, Plt Count 128 L, MPV 10.5 H, Neut % (Auto) 72.3, Lymph % (Auto) 21.6, [place] % (Auto) 5.7, Eos % (Auto) 0.2, Baso % (Auto) 0.2, Neut # (Auto) 4.4, Lymph # (Auto) 1.3, [place] # (Auto) 0.4, Eos # (Auto) 0.0, Baso # (Auto) 0.0, Sodium 137, Potassium 4.0, Chloride 107, Carbon Dioxide 28, Anion Gap 6.0, BUN 19, Creatinine 0.90, Estimated Creat Clear 49, Estimated GFR 81, Est GFR ( Amer) 98, Glucose 93 D, Calcium 8.3 L, Magnesium 2.0 D, Total Bilirubin 0.6, AST 20, ALT 14 D, Alkaline Phosphatase 87, Total Protein 5.3 L, Albumin 3.1 L D, Globulin 2.2, Albumin/Globulin Ratio 1.4 I & O for Last 24 hours: Intake & Output 05/18/24 05/19/24 05/20/24 05/21/24 23:59 23:59 23:59 23:59 Intake Total 245 / 725 760 / 760 Output Total 300 / 300 1350 / 1350 Balance -55 / 425 -590 / -590 Weight 63.219 kg 63.9 kg 140.8 kg Microbiology Reports for the Last 24 Hours: Microbiology 05/19/24 16:21 Blood Blood Culture - Preliminary NO GROWTH AFTER 24 HOURS 05/19/24 15:54 Blood Blood Culture - Preliminary NO GROWTH AFTER 24 HOURS Constitutional Constitutional: no acute distress, thin, chronically ill appearing and cooperative *Routine HEENT Exam Head: Present normocephalic Eye: Present EOMI and PERRL ENT: Present mucous membranes moist *Routine Neck Exam Neck: Present supple; Absent lymphadenopathy *Routine Respiratory Exam Respiratory: Present CTA bilaterally; Absent rhonchi, wheezes or crackles *Routine Cardiovascular Exam Cardiovascular: Present RRR *Routine Abdominal Exam Abdominal: Present soft and normoactive bowel sounds; Absent tenderness *Routine Rectal Exam Patient deferred: visual exam *Routine Exam Patient deferred: penile exam *Routine Extremities Exam Extremities: Absent cyanosis, clubbing or edema Comments: Absent right lower extremity, AKA *Routine Skin Exam Skin: Present warm; Absent rash *Routine Neurological Exam Neurological: Present alert and moving all extremities; Absent altered mental status Comments: Oriented to self; confused on place and time. Knows family at bedside. Results Data Completed and Pending Labs on day of discharge: Labs from last 24 hours 05/21/24 05/20/24 05/20/24 06:08 18:00 12:50 WBC 6.1 D RBC 4.31 L Hgb 13.3 L D Hct 40.5 L MCV 94.0 MCH 30.9 MCHC 32.8 RDW 14.5 Plt Count 128 L MPV 10.5 H Neut % (Auto) 72.3 Lymph % (Auto) 21.6 [place] % (Auto) 5.7 Eos % (Auto) 0.2 Baso % (Auto) 0.2 Neut # (Auto) 4.4 Lymph # (Auto) 1.3 [place] # (Auto) 0.4 Eos # (Auto) 0.0 Baso # (Auto) 0.0 Activated Clotting Time 367 H* Sodium 137 Potassium 4.0 Chloride 107 Carbon Dioxide 28 Anion Gap 6.0 BUN 19 Creatinine 0.90 Estimated Creat Clear 49 Estimated GFR 81 Est GFR ( Amer) 98 Glucose 93 D Calcium 8.3 L Magnesium 2.0 D Total Bilirubin 0.6 AST 20 ALT 14 D Alkaline Phosphatase 87 Total Protein 5.3 L Albumin 3.1 L D Globulin 2.2 Albumin/Globulin Ratio 1.4 Urine Color Yellow Urine Appearance Slightly cloudy Urine pH 6.0 Ur Specific [place] 1.020 Urine Protein Negative Urine Glucose (UA) Negative Urine Ketones Negative Urine Blood 2+ A Urine Nitrate Negative Urine Bilirubin Negative Urine Urobilinogen 0.2 Ur Leukocyte Esterase Negative Urine RBC 3-5 Urine WBC Occasional Ur Squamous Epith Cells None Urine Bacteria Trace Preliminary micro results at discharge 05/19/24 16:21 Blood Culture - Preliminary Blood NO GROWTH AFTER 24 HOURS 05/19/24 15:54 Blood Culture - Preliminary Blood NO GROWTH AFTER 24 HOURS DS: Diagnosis Discharge Diagnosis (1) Acute non-ST elevation myocardial infarction (NSTEMI): Status: Acute Code(s): I21.4 - Non-ST elevation (NSTEMI) myocardial infarction (2) Atypical angina: Status: Acute Code(s): I20.89 - Other forms of angina pectoris (3) CAD (coronary artery disease): Status: Chronic Code(s): I25.10 - Atherosclerotic heart disease of [place] coronary artery without angina pectoris Qualifiers: Associated angina: without angina Coronary Disease-Associated Artery/Lesion type: [place] artery [place] vs. transplanted heart: [place] heart Qualified Code(s): I25.10 - Atherosclerotic heart disease of [place] coronary artery without angina pectoris (4) HTN (hypertension): Status: Chronic Code(s): I10 - Essential (primary) hypertension Qualifiers: Hypertension type: essential hypertension Qualified Code(s): I10 - Essential (primary) hypertension (5) HLD (hyperlipidemia): Status: Chronic Code(s): E78.5 - Hyperlipidemia, unspecified Qualifiers: Hyperlipidemia type: mixed hyperlipidemia Qualified Code(s): E78.2 - Mixed hyperlipidemia (6) HFrEF (heart failure with reduced ejection fraction): Status: Acute Code(s): I50.20 - Unspecified systolic (congestive) heart failure (7) PAD (peripheral artery disease): Status: Chronic Code(s): I73.9 - Peripheral vascular disease, unspecified (8) Stenosis of carotid artery: Status: Acute Code(s): I65.29 - Occlusion and stenosis of unspecified carotid artery Qualifiers: Laterality: bilateral Qualified Code(s): I65.23 - Occlusion and stenosis of bilateral carotid arteries (9) Acute exacerbation of chronic obstructive pulmonary disease: Status: Acute Code(s): J44.1 - Chronic obstructive pulmonary disease with (acute) exacerbation (10) Right above-knee amputee: Status: Chronic Code(s): Z89.611 - Acquired absence of right leg above knee Meds Home Medications and Allergies Home Medications ?Medication ?Instructions ?Recorded ?Confirmed ?Type lansoprazole 30 mg capsule,delayed 30 mg PO DAILY 09/27/22 05/19/24 History release levocetirizine 5 mg tablet 5 mg PO DAILY 09/27/22 05/19/24 History trazodone 100 mg tablet 100 mg PO HS 09/27/22 05/19/24 History fluticasone fur. 100 mcg-umeclid 1 inh inhalation DAILY 01/29/23 05/19/24 History 62.5 mcg-vilant 25 mcg inhalat.powder (Trelegy Ellipta) apixaban 5 mg tablet (Eliquis) 5 mg PO BID 03/28/24 05/19/24 History duloxetine 60 mg capsule,delayed 60 mg PO DAILY 03/28/24 05/19/24 History release famotidine 20 mg tablet 20 mg PO BID 03/28/24 05/20/24 History fluticasone propionate 50 1 spray intranasal DAILY 03/28/24 05/19/24 History mcg/actuation nasal spray,suspension tamsulosin 0.4 mg capsule 0.4 mg PO HS 03/28/24 05/19/24 History metoprolol tartrate 50 mg tablet 50 mg PO BID 03/29/24 05/19/24 History dutasteride 0.5 mg capsule 0.5 mg PO DAILY 04/29/24 05/19/24 History aspirin 81 mg tablet,delayed 81 mg PO DAILY #30 tabs 05/21/24 Rx release atorvastatin 40 mg tablet 80 mg (2 x 40 mg) PO HS 30 days 05/21/24 Rx #60 tabs azithromycin 250 mg tablet 250 mg PO DAILY 2 days #2 tabs 05/21/24 Rx clopidogrel 75 mg tablet 75 mg PO DAILY 30 days #30 tabs 05/21/24 Rx empagliflozin 10 mg tablet 10 mg PO DAILY 30 days #30 tabs 05/21/24 Rx (Jardiance) sacubitril 24 mg-valsartan 26 mg 1 tab PO BID 30 days #60 tabs 05/21/24 Rx tablet (Entresto) spironolactone 25 mg tablet 25 mg PO DAILY 30 days #30 tabs 05/21/24 Rx New Prescriptions to Start Prescriptions: Sven Arandader,Sven azithromycin Jaxon,Sven clopidogrel Jaxon,Sven empagliflozin [Jardiance] Jaxon,Sven sacubitril-valsartan [Entresto] Jaxon,Sven spironolactone Jaxon,Sven Allergies Allergy/AdvReac Type Severity Reaction Status Date / Time No Known Allergies Allergy Verified 04/29/24 19:18 Discharge Plan Disposition Patient Disposition: Home Health Service Condition: Fair Discharge Order Discharge Orders: Discharge Order (Routine); Ordered 05/21/24 Ordered By: Sven Coates Follow up Plan Follow up with: Raul Healy PA [Physician Transition Teacher] - 05/27/24 10:45 am Stefania Pagan APRN [Primary Care Provider] - 05/28/24 12:15 pm Prescriptions/Medication Reconciliation: New atorvastatin 40 mg Tablet 80 mg PO HS 30 Days Qty: 60 0RF azithromycin 250 mg Tablet 250 mg PO DAILY 2 Days Qty: 2 0RF clopidogrel 75 mg Tablet 75 mg PO DAILY 30 Days Qty: 30 0RF aspirin 81 mg Tablet,Delayed Release (Dr/Ec) 81 mg PO DAILY Qty: 30 0RF spironolactone 25 mg Tablet 25 mg PO DAILY 30 Days Qty: 30 0RF Jardiance 10 mg Tablet 10 mg PO DAILY 30 Days Qty: 30 0RF Entresto 24-26 mg Tablet 1 tab PO BID 30 Days Qty: 60 0RF Continued trazodone 100 mg tablet 100 mg PO HS lansoprazole 30 mg capsule,delayed release(DR/EC) 30 mg PO DAILY levocetirizine 5 mg tablet 5 mg PO DAILY Trelegy Ellipta 100-62.5-25 mcg Blister With Device 1 inh INHALATION DAILY famotidine 20 mg tablet 20 mg PO BID duloxetine 60 mg capsule,delayed release(DR/EC) 60 mg PO DAILY Eliquis 5 mg tablet 5 mg PO BID tamsulosin 0.4 mg capsule 0.4 mg PO HS fluticasone propionate 50 mcg/actuation spray,suspension 1 spray INTRANASAL DAILY Rx Instructions: 1 spray in both nostrils metoprolol tartrate 50 mg Tablet 50 mg PO BID dutasteride 0.5 mg Capsule 0.5 mg PO DAILY Discontinued ezetimibe-simvastatin 10-40 mg tablet 1 tab PO HS potassium chloride 20 mEq tablet,ER particles/crystals 20 meq PO DAILY Other Ambulatory Orders: Home Medical Equipment (Routine) Location: None Selected Ordered By: Sven Coates Problem Reconciliation Problems Reviewed?: Yes Patient Discharge Instructions ACTIVITY: Continue current activity DIET: continue same diet Patient Instructions: DI for Heart Attack, Chronic Obstructive Pulmonary Disease, DI for Cardiac Catheterization, DI for Surgical Site Infection, Human Metapneumovirus Infection Print Language: Khmer Providers Primary Care Provider: Stefania Pagan Admit Provider: Carroll Catalan Attending Provider: Carroll Catalan
--- NOTE | 2024-05-21 14:41 | CARE MANAGER ---
Addendum entered by Zoraida Buchanan RN 05/21/24 15:09: Due to patients right AKA, patient is unable to position himself in a regular bed and will need a hospital bed. Original Note: Patient requires assistance with bed mobility and transfers in and out of bed, due to above knee amputation and weakness r/t heart failure. He would benefit with a hospital bed at this time.
--- NOTE | 2024-05-23 10:20 | SW/DCPLANNER ---
Phoned patient x2. Left patient messages with name and number with a call back. Zhane German
== END 2024-05-21 16:20 | disposition home health service (06) | DRG 321 ==
LOC: ER 15:34 → 2ND 17:43
PROVIDERS: Internal Medicine; Student in an Organized Health Care Education/Training Program; Admitting Provider Student in an Organized Health Care Education/Training Program; Emergency Provider Emergency Medicine; PCP Nurse Practitioner Family; Visit Provider Student in an Organized Health Care Education/Training Program
PROC: 4A023N7 Measurement of Cardiac Sampling and Pressure, Left Heart, Percutaneous Approach (ICD-10-PCS; principal; 2024-05-20 12:30)
DX: I21.4 Non-ST elevation (NSTEMI) myocardial infarction (principal); J12.3 Human metapneumovirus pneumonia; J44.1 Chronic obstructive pulmonary disease with (acute) exacerbation; I50.22 Chronic systolic (congestive) heart failure; I13.0 Hypertensive heart and chronic kidney disease with heart failure and stage 1 through stage 4 chronic kidney disease, or unspecified chronic kidney disease; R06.02 Shortness of breath; I25.10 Atherosclerotic heart disease of native coronary artery without angina pectoris; E78.2 Mixed hyperlipidemia; I48.91 Unspecified atrial fibrillation; F17.210 Nicotine dependence, cigarettes, uncomplicated; N18.9 Chronic kidney disease, unspecified; I73.9 Peripheral vascular disease, unspecified; Z95.1 Presence of aortocoronary bypass graft; Z95.828 Presence of other vascular implants and grafts; Z89.611 Acquired absence of right leg above knee; Z86.718 Personal history of other venous thrombosis and embolism; Z71.6 Tobacco abuse counseling; Z79.51 Long term (current) use of inhaled steroids; Z79.899 Other long term (current) drug therapy
CPT/HCPCS: 36415; 70450; 71045; 80053; 80061; 81001; 82803; 83735; 83880; 84484; 85025; 85347; 85730; 86803; 87040; 87070; 87205; 87389; 87633; 92937; 92938; 93005; 93306; 93459; 94640; 94761; 97163; 97530; 99152; 99153; 99291; C1725; C1769; C1874; C1875; C1894; C9604; C9605; J0456; J0696; J1200; J1644; J1940; J2250; J2720; J2919; J3010; J3475; J7050; J7614; J7620; J7644; Q9967

== ENCOUNTER 2024-05-26 18:19 | Emergency (ER) | payer MEDICARE, BC, SELFPAY ==
[2024-05-26 18:32] VITALS: BP 137/95; PULSE 68; RESP 15; TEMP 36.6; O2SAT 98; BMI 23.3
--- NOTE | 2024-05-26 18:58 | ED_ITS ---
Discharge Plan Disposition Patient Disposition: Home, Self-Care Prescriptions Prescriptions: New cephalexin 500 mg capsule 1,000 mg PO BID 7 Days Qty: 28 0RF No Action trazodone 100 mg tablet 100 mg PO HS lansoprazole 30 mg capsule,delayed release(DR/EC) 30 mg PO DAILY levocetirizine 5 mg tablet 5 mg PO DAILY Trelegy Ellipta 100-62.5-25 mcg Blister With Device 1 inh INHALATION DAILY famotidine 20 mg tablet 20 mg PO BID duloxetine 60 mg capsule,delayed release(DR/EC) 60 mg PO DAILY Eliquis 5 mg tablet 5 mg PO BID tamsulosin 0.4 mg capsule 0.4 mg PO HS fluticasone propionate 50 mcg/actuation spray,suspension 1 spray INTRANASAL DAILY Rx Instructions: 1 spray in both nostrils metoprolol tartrate 50 mg Tablet 50 mg PO BID atorvastatin 40 mg Tablet 80 mg PO HS 30 Days Qty: 60 0RF azithromycin 250 mg Tablet 250 mg PO DAILY 2 Days Qty: 2 0RF clopidogrel 75 mg Tablet 75 mg PO DAILY 30 Days Qty: 30 0RF aspirin 81 mg Tablet,Delayed Release (Dr/Ec) 81 mg PO DAILY Qty: 30 0RF spironolactone 25 mg Tablet 25 mg PO DAILY 30 Days Qty: 30 0RF Jardiance 10 mg Tablet 10 mg PO DAILY 30 Days Qty: 30 0RF Entresto 24-26 mg Tablet 1 tab PO BID 30 Days Qty: 60 0RF dutasteride 0.5 mg Capsule 0.5 mg PO DAILY Referrals Follow up/Referrals: Stefania Pagan APRN [Primary Care Provider] - See instructions Activity Restrictions/Add. Instructions Additional Instructions/Restrictions: Cephalexin twice for 7 days. Call your family doctor to establish care for this visit to the emergency department and schedule follow-up within 48 hours to ensure improvement. If you have any worsening of your condition or any other concerning signs or symptoms, return to the emergency department or your primary care doctor for further evaluation. Clinical Impressions Clinical Impression: Catheter-associated urinary tract infection Instructions Patient Instructions: DI for Urinary Tract Infection (UTI), DI for Urinary Tract Infection in Children Print Language Print Language: Georgian Discharge ED Provider: Keith Davila General Adult [facility] General Chief complaint: Urogenital-Male Stated complaint: catheter is leaking Time Seen by Provider: 05/26/24 18:22 Mode of Arrival: Wheelchair Source of Information: Patient Description of Symptoms (Recalled from ER Triage Doc. by RN): patient states his kidd catheter bag is leaking History of Present Illness HPI narrative: Please note that above description of symptoms, in this electronic medical record under categorization of recalled from ER triage doctor by RN are reflective of an initial nursing assessment, however, is not reflective of my full history and physical exam that was personally taken and clarified. Conse quentially, this preceding description of symptoms, which may include the patient's categorized chief complaint in the EMR, do not reflect my personal clinical impression, and the ultimate description of history of present illness and patient stated complaints should be deferred to this section of the note. Unless stated otherwise or congruent with this section of the note, additional signs, symptoms, or incongruence should be interpreted as inaccurate with my clinical impression. Related Data Home Medications ?Medication ?Instructions ?Recorded ?Confirmed lansoprazole 30 mg capsule,delayed 30 mg PO DAILY 09/27/22 05/19/24 release levocetirizine 5 mg tablet 5 mg PO DAILY 09/27/22 05/19/24 trazodone 100 mg tablet 100 mg PO HS 09/27/22 05/19/24 fluticasone fur. 100 mcg-umeclid 1 inh inhalation DAILY 01/29/23 05/19/24 62.5 mcg-vilant 25 mcg inhalat.powder (Trelegy Ellipta) apixaban 5 mg tablet (Eliquis) 5 mg PO BID 03/28/24 05/19/24 duloxetine 60 mg capsule,delayed 60 mg PO DAILY 03/28/24 05/19/24 release famotidine 20 mg tablet 20 mg PO BID 03/28/24 05/20/24 fluticasone propionate 50 1 spray intranasal DAILY 03/28/24 05/19/24 mcg/actuation nasal spray,suspension tamsulosin 0.4 mg capsule 0.4 mg PO HS 03/28/24 05/19/24 metoprolol tartrate 50 mg tablet 50 mg PO BID 03/29/24 05/19/24 dutasteride 0.5 mg capsule 0.5 mg PO DAILY 04/29/24 05/19/24 Previous Rx's ?Medication ?Instructions ?Recorded aspirin 81 mg tablet,delayed 81 mg PO DAILY #30 tabs 05/21/24 release atorvastatin 40 mg tablet 80 mg (2 x 40 mg) PO HS 30 days 05/21/24 #60 tabs azithromycin 250 mg tablet 250 mg PO DAILY 2 days #2 tabs 05/21/24 clopidogrel 75 mg tablet 75 mg PO DAILY 30 days #30 tabs 05/21/24 empagliflozin 10 mg tablet 10 mg PO DAILY 30 days #30 tabs 05/21/24 (Jardiance) sacubitril 24 mg-valsartan 26 mg 1 tab PO BID 30 days #60 tabs 05/21/24 tablet (Entresto) spironolactone 25 mg tablet 25 mg PO DAILY 30 days #30 tabs 05/21/24 cephalexin 500 mg capsule 1,000 mg (2 x 500 mg) PO BID 7 05/26/24 days #28 caps Allergies Allergy/AdvReac Type Severity Reaction Status Date / Time No Known Allergies Allergy Verified 04/29/24 19:18 [facility] Disclaimer: The information contained in this section may have been updated after the patient was seen, as this information can be updated by other users. Medical History (Updated 05/26/24 @ 20:13 by Keith Davila MD) Atypical angina Subdural hemorrhage Swelling of lower leg Dehiscence of operative wound Obesity (BMI 30.0-34.9) Stenosis of carotid artery Left carotid bruit BPH without obstruction/lower urinary tract symptoms BPH (benign prostatic hyperplasia) CALEB (renal artery stenosis) HFrEF (heart failure with reduced ejection fraction) CHF (congestive heart failure) Dyspnea HLD (hyperlipidemia) HTN (hypertension) CAD (coronary artery disease) Abdominal aortic aneurysm CKD (chronic kidney disease) Atrial fibrillation Surgical History H/O fasciotomy Family History Other No significant family history Social History (Updated 05/19/24 @ 18:47 by Barbara Jacques RN) Smoking Status: Current every day smoker tobacco type: cigarettes second hand exposure: No alcohol intake: never substance use type: denies use current occupational status: retired Travel in the last 8 weeks: Inside the [place] household members: spouse housing: house caffeine: Yes Have you lived/traveled outside [place] in past 30 days?: No Contact w/someone who lives/traveled outside [place] past 30 days?: No Exposure to someone with infectious disease in past 14 days?: No Do you have a fever (greater than 100.4 F or 38 C)?: No Have you tested positive for COVID-19: No Exposed to someone with COVID-19 in past 14 days?: No Do you have a sore throat?: No Do you have a cough?: No Do you have any weakness?: No Do you have any diarrhea?: No Are you experiencing any unusual bleeding?: No Do you have any muscle aches/pain?: No Do you have any abdominal pain?: No Are you experiencing loss of taste or smell?: No Other Medical History Have you received the Flu Vaccine for this season: No Have you received the Pneumonia Vaccine: No ROS Obtained: Yes All systems reviewed & no additional complaints except as documented Physical Exam General General appearance: alert Head Head exam: atraumatic and normocephalic Eye Eye exam: Present normal appearance, PERRL and EOMI Neck Neck exam: Present normal inspection, full ROM and trachea midline Respiratory Respiratory exam: Absent respiratory distress, wheezes, stridor, accessory muscle use or prolonged expiratory phase Cardiovascular Cardiovascular exam: Present other (Pulses equal symmetric in upper and lower extremities) Abdominal Exam Abdominal exam: Present soft; Absent distention, tenderness or pulsatile mass Extremities Exam Extremities exam: Absent edema Neurological Exam Neurological exam: Present alert, oriented X3 and CN II-XII intact; Absent motor sensory deficit Skin Skin exam: Present warm and dry; Absent diaphoresis or erythema Medical Decision Making Medical Records Medical records reviewed: Yes I reviewed the patient's medical records. Screening: Per USPSTF and CDC recommendations, given the prevalence of disease in our region, it is our hospital?s policy to screen for HIV and viral Hepatitis for all patients aged 18 and over and those with ongoing risk factors. Anjel Inquiry Pt receiving controlled substance: No Anjel was queried for this patient: No Vital Signs: 05/26/24 18:32 05/26/24 19:30 Temperature 97.8 F Temperature Source Oral Pulse Rate [Left] 68 Respiratory Rate 15 Blood Pressure 148/83 H Blood Pressure [Left Arm] 137/95 H Blood Pressure Mean [Left Arm] 109 Blood Pressure Source [Left Arm] Automatic Cuff Blood Pressure Position [Left Arm] Supine 02 Sat by Pulse Oximetry 98 99 Oxygen Delivery Method Room Air Lab Data Lab Results 05/26/24 19:15: Urine Color Dark yellow, Urine Appearance Slightly cloudy, Urine pH 6.0, Ur Specific Devens 1.020, Urine Protein 2+ A, Urine Glucose (UA) 2+, Urine Ketones Trace, Urine Blood 3+ A, Urine Nitrate Negative, Urine Bilirubin Negative, Urine Urobilinogen 1.0, Ur Leukocyte Esterase 1+ A, Urine RBC 20-50, Urine WBC 10-20, Ur Squamous Epith Cells None, Urine Bacteria 1+ Orders (Tests/Meds): ORDERS Category Date Time Status UA [Urinalysis and Microscopic] Stat Lab 05/26/24 19:15 Completed Urine Culture Stat Micro 05/26/24 19:15 Received Medical Decision Narrative: 83-year-old male with history of bladder outlet obstruction secondary to BPH with chronic indwelling catheter, hypertension, hyperlipidemia, 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 Son is accompanying patient providing some of history. States he has been a little bit confused for the past couple days, no fevers, chills, systemic signs or symptoms, vomiting, etc., but patient is leaking around his catheter starting last night, 05/25. No other associated symptoms. History was obtained via conversation with patient and son. On arrival, patient hemodynamically stable, alert, oriented x4, appropriate, GCS 15, moving all extremities spontaneously, pupils equal and reactive to light. Full physical exam performed and significant for acutely clinically well appearing male. Speaking in full sentences, answering my questions appropriately. Abdomen is soft, nontender, nondistended. Urine in the bag is yellow, does not appear to have much sediment, not cloudy. Differential includes urinary tract infection, catheter associated UTI, catheter dysfunction, among others. Catheter was switched out with 16 [place]. Urine was sent. On independent interpretation, low concern for urinary tract infection. He has protein, blood, trace leukocyte esterase and white blood cells likely secondary to inflammation from chronic indwelling Kidd, However just a few days ago numerous of patient's recent UAs without any leukocyte Estrace and lower white blood cell count. Given patient's chronic indwelling Kidd, to be treated with Keflex. given patient presentation, workup, history, this most likely represents catheter dysfunction and urinary tract infection. Given first dose here. Because patient at baseline without signs or symptoms of clinical decompensation, deemed appropriate for discharge. Results w ere relayed to patient who voiced understanding and were agreeable to outpatient management and follow up. I discussed my clinical impression with patient and answered all questions. At this time, the evidence for any other entities in the differential is insufficient to warrant any further testing or ED observation. This was explained as well. Advisory was given that persistent or worsening symptoms require further evaluation. I confirmed the understanding of this discussion. Fitting Room Operator disclaimer Much of this encounter note is an electronic billing representative spoken language to printed text. Electronic billing representative of the spoken language may permit errors. Although I have reviewed the note, some errors may still exist. Critical Care Critical Care Time Critical Care Time: No
--- NOTE | 2024-05-26 19:02 | PC.NURSE ---
provider ordered a new kidd cath to be placed, 16fr kidd cath placed. waiting on UA
[2024-05-26 19:19] LABS: Microscopic, Urine URINE MICROSCOPIC (MICROSCOPIC)
[2024-05-26 19:21] LABS: Bilirubin,Urine Negative (Negative); Blood, Urine 3+ (Negative); Glucose,Urine (UA) 2+ (Negative); Ketones,Urine TRACE (Negative); Leukocyte Esterase,Urine 1+ (Negative); Nitrate,Urine Negative (Negative); Protein,Urine 2+ (Negative)
[2024-05-26 19:23] LABS: Appearance,Urine Slightly Cloudy (Clear); Color,Urine Dark Yellow (Yellow)
[2024-05-26 19:30] VITALS: BP 148/83; O2SAT 99
[2024-05-26 19:36] LABS: Bacteria,Urine 1+ /lpf; RBC,Urine 20-50 #/hpf (0-3)
[2024-05-26] MEDS: cephALEXin 500MG CAPSULE 1000 MG PO (20:19)
[2024-05-26 20:21] VITALS: BP 127/73; PULSE 80; RESP 16; TEMP 36.8; O2SAT 96
== END 2024-05-26 20:21 | disposition home or self-care (01) ==
PROVIDERS: Emergency Provider Emergency Medicine; PCP Nurse Practitioner Family
DX: T83.518A Infection and inflammatory reaction due to other urinary catheter, initial encounter (principal); T83.091A Other mechanical complication of indwelling urethral catheter, initial encounter; F17.210 Nicotine dependence, cigarettes, uncomplicated; I10 Essential (primary) hypertension; E78.5 Hyperlipidemia, unspecified; E11.9 Type 2 diabetes mellitus without complications
CPT/HCPCS: 81001; 87086; 99283

== ENCOUNTER 2024-05-27 10:26 | Outpatient (CLI) | payer MEDICARE, BC, SELFPAY ==
[2024-05-27 11:29] LABS: Basophils % 0.5 % (0.1-2.0); Eosinophils # 0.1 K/mm3 (0.0-0.4); Eosinophils % 1.3 % (0.1-12.0); Hematocrit 46.7 % (42.0-52.0); Lymphocytes # 1.7 K/mm3 (0.7-4.5); Lymphocytes % 21.9 % (10-50); Mean Corpuscular HGB Conc 34.3 g/dL (31.8-35.4); Mean Corpuscular Hemoglobin 31.7 pg (27.0-31.2); Mean Corpuscular Volume 92.7 fl (80-94); Mean Platelet Volume 10.8 fl (7.4-10.4); Monocytes # 0.5 K/mm3 (0.1-1.0); Monocytes % 6.8 % (1.7-9.3); Neutrophils # 5.2 K/mm3 (1.8-7.8); Neutrophils % 68.3 % (37.0-80.0); Platelet Count 241 K/mm3 (142-424); Red Blood Count 5.04 M/mm3 (4.60-6.20); Red Cell Distribution Width 14.5 % (11.5-17.5); White Blood Count 7.7 K/mm3 (4.8-10.8)
[2024-05-27 12:14] LABS: Anion Gap 11.6 mEq/L (5-15); Blood Urea Nitrogen 12 mg/dl (9-20); Calcium 8.7 mg/dl (8.4-10.2); Carbon Dioxide 26 mmol/L (22.0-30.0); Chloride 103 mmol/L (98-107); Estimated Glomerular Filt Rate 81 ml/min (>60); GFR (African American) 98 ML/MIN (>60); Glucose 92 mg/dl (74-100); Potassium 3.6 mmoL/L (3.5-5.1); Sodium 137 mmol/L (136-145)
== END 2024-05-27 23:59 | disposition home or self-care (01) ==
LOC: LAB 10:28
PROVIDERS: PCP Nurse Practitioner Family; Visit Provider Internal Medicine
DX: I25.10 Atherosclerotic heart disease of native coronary artery without angina pectoris (principal)
CPT/HCPCS: 36415; 80048; 85025

== ENCOUNTER 2024-06-01 13:50 | Emergency (ER) | payer MEDICARE, BC, SELFPAY ==
[2024-06-01 13:58] VITALS: BP 116/55; PULSE 79; O2SAT 99
[2024-06-01 14:01] VITALS: BP 112/65; PULSE 82; O2SAT 97
--- NOTE | 2024-06-01 14:06 | PC.NURSE ---
DR PERALTA AT BEDSIDE
[2024-06-01 14:08] VITALS: BP 116/55; PULSE 71; RESP 14; TEMP 36.8; O2SAT 96; BMI 25.0
--- NOTE | 2024-06-01 14:12 | HMH.EDGENADL ---
Discharge Plan Disposition Patient Disposition: Home, Self-Care Condition: Good Prescriptions Prescriptions: New oxybutynin chloride 5 mg tablet 5 mg PO BID PRN (Reason: bladder spasms) Qty: 60 0RF No Action Entresto 24-26 mg tablet 1 tab PO BID Qty: 60 5RF trazodone 100 mg tablet 100 mg PO HS lansoprazole 30 mg capsule,delayed release(DR/EC) 30 mg PO DAILY levocetirizine 5 mg tablet 5 mg PO DAILY Trelegy Ellipta 100-62.5-25 mcg Blister With Device 1 inh INHALATION DAILY famotidine 20 mg tablet 20 mg PO BID duloxetine 60 mg capsule,delayed release(DR/EC) 60 mg PO DAILY Eliquis 5 mg tablet 5 mg PO BID tamsulosin 0.4 mg capsule 0.4 mg PO HS fluticasone propionate 50 mcg/actuation spray,suspension 1 spray INTRANASAL DAILY Rx Instructions: 1 spray in both nostrils metoprolol tartrate 50 mg Tablet 50 mg PO BID atorvastatin 40 mg Tablet 80 mg PO HS 30 Days Qty: 60 0RF clopidogrel 75 mg Tablet 75 mg PO DAILY 30 Days Qty: 30 0RF aspirin 81 mg Tablet,Delayed Release (Dr/Ec) 81 mg PO DAILY Qty: 30 0RF spironolactone 25 mg Tablet 25 mg PO DAILY 30 Days Qty: 30 0RF Jardiance 10 mg Tablet 10 mg PO DAILY 30 Days Qty: 30 0RF cephalexin 500 mg capsule 1,000 mg PO BID 7 Days Qty: 28 0RF dutasteride 0.5 mg Capsule 0.5 mg PO DAILY Referrals Follow up/Referrals: Provider,Referral, MD [Primary Care Provider] - See instructions Activity Restrictions/Add. Instructions Additional Instructions/Restrictions: You were evaluated in the emergency department today. Please call your urologist right away to schedule an outpatient follow-up appointment for definitive management. 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 Follow close with your primary care provider as well. Return to an emergency department for new or worsening symptoms. Clinical Impressions Clinical Impression: Complication of Mcnair catheter Instructions Patient Instructions: How to Care for Your Mcnair Catheter -- Male Print Language Print Language: Mongolian Discharge ED Provider: Sary Obrien General Adult HPI General Chief complaint: Urogenital-Male Stated complaint: Catheter Leaking Time Seen by Provider: 06/01/24 13:56 Mode of Arrival: Wheelchair Source of Information: Patient Description of Symptoms (Recalled from ER Triage Doc. by RN): pt presents to ED with c/o leaking at catheter insertion site. symptoms began last night. pt has multiple visit to the ED for catheter changes. pt reports that he does see a urologist but his daughter has not called to inform them of recent ER visits and frequent catheter changes. History of Present Illness HPI narrative: This patient is an 83-year-old male with a chronic indwelling Mcnair catheter secondary to bladder outflow obstruction related to BPH, hypertension, hyperlipidemia, CHF, CAD status post recent stenting presenting to the emergency department for evaluation concern for leakage around his catheter site. Patient states this happens about every week, at which point he usually comes into our ED for evaluation. He said catheter exchange multiple times here with most recent exchange 05/26/24. Urine culture at that time was negative for bacteria but was positive for yeast. He was discharged home with Keflex, which she has been taking and is still taking currently. He denies any fevers, nausea, vomiting, or pain. His only issue is that he is having some leakage of urine around his catheter. He is supposed to have a TURP with urology but this was postponed because he ended up undergoing a heart cath with stents. He follows with Dr. Puente in [place] but has not seen them recently according to patient and family. Related Data Home Medications ?Medication ?Instructions ?Recorded ?Confirmed lansoprazole 30 mg capsule,delayed 30 mg PO DAILY 09/27/22 05/27/24 release levocetirizine 5 mg tablet 5 mg PO DAILY 09/27/22 05/27/24 trazodone 100 mg tablet 100 mg PO HS 09/27/22 05/27/24 fluticasone fur. 100 mcg-umeclid 1 inh inhalation DAILY 01/29/23 05/27/24 62.5 mcg-vilant 25 mcg inhalat.powder (Trelegy Ellipta) apixaban 5 mg tablet (Eliquis) 5 mg PO BID 03/28/24 05/27/24 duloxetine 60 mg capsule,delayed 60 mg PO DAILY 03/28/24 05/27/24 release famotidine 20 mg tablet 20 mg PO BID 03/28/24 05/27/24 fluticasone propionate 50 1 spray intranasal DAILY 03/28/24 05/27/24 mcg/actuation nasal spray,suspension tamsulosin 0.4 mg capsule 0.4 mg PO HS 03/28/24 05/27/24 metoprolol tartrate 50 mg tablet 50 mg PO BID 03/29/24 05/27/24 dutasteride 0.5 mg capsule 0.5 mg PO DAILY 04/29/24 05/27/24 Previous Rx's ?Medication ?Instructions ?Recorded aspirin 81 mg tablet,delayed 81 mg PO DAILY #30 tabs 05/21/24 release atorvastatin 40 mg tablet 80 mg (2 x 40 mg) PO HS 30 days 05/21/24 #60 tabs clopidogrel 75 mg tablet 75 mg PO DAILY 30 days #30 tabs 05/21/24 empagliflozin 10 mg tablet 10 mg PO DAILY 30 days #30 tabs 05/21/24 (Jardiance) spironolactone 25 mg tablet 25 mg PO DAILY 30 days #30 tabs 05/21/24 cephalexin 500 mg capsule 1,000 mg (2 x 500 mg) PO BID 7 05/26/24 days #28 caps sacubitril 24 mg-valsartan 26 mg 1 tab PO BID #60 tabs 05/27/24 tablet (Entresto) oxybutynin chloride 5 mg tablet 5 mg PO BID PRN bladder spasms #60 06/01/24 tabs Allergies Allergy/AdvReac Type Severity Reaction Status Date / Time No Known Allergies Allergy Verified 05/27/24 11:04 [facility] Disclaimer: The information contained in this section may have been updated after the patient was seen, as this information can be updated by other users. Medical History Atypical angina Subdural hemorrhage Swelling of lower leg Dehiscence of operative wound Obesity (BMI 30.0-34.9) Stenosis of carotid artery Left carotid bruit BPH without obstruction/lower urinary tract symptoms BPH (benign prostatic hyperplasia) CALEB (renal artery stenosis) HFrEF (heart failure with reduced ejection fraction) CHF (congestive heart failure) Dyspnea HLD (hyperlipidemia) HTN (hypertension) CAD (coronary artery disease) Abdominal aortic aneurysm CKD (chronic kidney disease) Atrial fibrillation Surgical History H/O fasciotomy Family History Other No significant family history Social History Smoking Status: Current every day smoker tobacco type: cigarettes second hand exposure: No alcohol intake: never substance use type: denies use current occupational status: retired Travel in the last 8 weeks: Inside the [place] household members: spouse housing: house caffeine: Yes Have you lived/traveled outside US in past 30 days?: No Contact w/someone who lives/traveled outside US past 30 days?: No Exposure to someone with infectious disease in past 14 days?: No Do you have a fever (greater than 100.4 F or 38 C)?: No Have you tested positive for COVID-19: No Exposed to someone with COVID-19 in past 14 days?: No Do you have a sore throat?: No Do you have a cough?: No Do you have any weakness?: No Do you have any diarrhea?: No Are you experiencing any unusual bleeding?: No Do you have any muscle aches/pain?: No Do you have any abdominal pain?: No Are you experiencing loss of taste or smell?: No Other Medical History Have you received the Flu Vaccine for this season: No Have you received the Pneumonia Vaccine: Yes ROS Obtained: Yes All systems reviewed & no additional complaints except as documented Physical Exam General General appearance: alert and in no apparent distress Head Head exam: atraumatic and normocephalic Eye Eye exam: Present normal appearance, PERRL and EOMI ENT ENT exam: Present normal exam, normal oropharynx, mucous membranes moist and normal external ear exam Neck Neck exam: Present normal inspection, full ROM and trachea midline; Absent tenderness Chest Chest inspection: Present normal inspection and symmetric chest wall rise; Absent tenderness Respiratory Respiratory exam: Present normal lung sounds bilaterally; Absent respiratory distress, wheezes, stridor or accessory muscle use Cardiovascular Cardiovascular exam: Present regular rate and normal rhythm Abdominal Exam Abdominal exam: Present soft; Absent distention, tenderness, guarding, rebound or rigidity exam: Present normal inspection and other (Mcnair catheter in place with no leakage around it at this time. Clear yellow urine in the bag with some sediment within the tubing) Extremities Exam Extremities exam: Absent edema Back Exam Back exam: Present normal inspection and full ROM; Absent tenderness Neurological Exam Neurological exam: Present alert, oriented X3 and CN II-XII intact; Absent motor sensory deficit Psychiatric Psychiatric exam: Present normal affect and normal mood Skin Skin exam: Present warm and dry Medical Decision Making Medical Records Medical records reviewed: Yes I reviewed the patient's medical records. Screening: Per USPSTF and CDC recommendations, given the prevalence of disease in our region, it is our hospital?s policy to screen for HIV and viral Hepatitis for all patients aged 18 and over and those with ongoing risk factors. Anjel Inquiry Pt receiving controlled substance: No Vital Signs: 06/01/24 13:58 06/01/24 14:01 06/01/24 14:08 Temperature 98.2 F Temperature Source Oral Pulse Rate 79 82 Pulse Rate [Left Radial] 71 Respiratory Rate 14 Blood Pressure 116/55 L 112/65 Blood Pressure [Right Arm] 116/55 L Blood Pressure Mean [Right Arm] 75 Blood Pressure Source [Right Arm] Automatic Cuff Blood Pressure Position [Right Arm] Supine 02 Sat by Pulse Oximetry 99 97 96 Oxygen Delivery Method Room Air 06/01/24 14:15 06/01/24 14:45 Temperature Temperature Source Pulse Rate 70 79 Pulse Rate [Left Radial] Respiratory Rate Blood Pressure 101/66 L 104/59 L Blood Pressure [Right Arm] Blood Pressure Mean [Right Arm] Blood Pressure Source [Right Arm] Blood Pressure Position [Right Arm] 02 Sat by Pulse Oximetry 100 95 Oxygen Delivery Method Room Air Lab Data Lab results reviewed: Yes I reviewed the patient's lab results. Orders (Tests/Meds): ED MEDICATIONS Discontinued Medications Generic Name Dose Route Start Last Admin Trade Name Freq PRN Reason Stop Dose Admin Fluconazole 200 mg 06/01/24 14:14 06/01/24 14:27 Fluconazole 200mg Tablet PO 06/01/24 14:15 200 mg ONCE ONE Administration Lidocaine HCl 1 ml 06/01/24 14:18 06/01/24 14:26 Lidocaine 2% Urojet 10ml TP 06/01/24 14:19 1 ml ONCE ONE Administration Oxybutynin Chloride 5 mg 06/01/24 14:09 06/01/24 14:29 Oxybutynin 5mg Tab PO 06/01/24 14:10 5 mg ONCE ONE Administration ORDERS Category Date Time Status Urine Culture(cathed specimen) Stat Micro 06/01/24 14:43 Received Medical Decision Narrative: In summary, this patient is a 83-year-old male presenting to the Emergency Department for evaluation of leakage around his Mcnair catheter, which he states happens almost on a weekly basis. Differential diagnoses considered include but are not limited to bladder spasms, urinary tract infection, urinary retention, Mcnair catheter displacement. Ruling out the most morbid conditions drove assessment. It should be noted patient's history includes BPH with urinary outflow obstruction, hypertension warm lipidemia, CAD, CHF which may or may not be at goal therapy. This complicates all aspects of care by increasing patient's risk for morbidity. I reviewed patient's past medical records and noted multiple previous ED evaluations for catheter care in the past with most recent being on May 26, 2024. Urine culture at that time positive for yeast as detailed in HPI. Will treat with one-time dose of fluconazole here, as I do not see that he was prescribed this previously.. On exam, the patient is lying in bed in no acute distress with no suprapubic tenderness or distention, Mcnair catheter is in place draining clear yellow urine with small amount of sediment within the tubing but otherwise no issue. He is lying in bed in no acute distress with no concerns or complaints otherwise. Vitals are reassuring on cardiac telemetry. Patient notes usually having the Mcnair catheter exchange helps with the symptoms, so Mcnair catheter was exchanged here today. He had good return of clear yellow urine with benign abdominal exam afterward. Urine culture was sent and is pending. For disease, he is given fluconazole. For his bladder spasms, I administered oxybutynin. We attempted to call [place] to see about arranging expeditious follow-up for the patient given that he has been seen here multiple times for similar issues and has not clearly been following up with urology. They advised they were not able to arrange this and he would have to call their office to schedule an appointment, so I instructed patient and family to do so. Ultimately at this time, I feel the patient is appropriate for discharge with close urology follow-up as an outpatient. I considered obtaining basic labs as well as imaging, however based on reassuring history and exam I do not feel this is indicated as it would likely not traveler changer. Urine culture was sent and is pending. Patient was discharged with strict return precautions and instructions for close follow-up with urology. Critical Care Critical Care Time Critical Care Time: No
[2024-06-01 14:15] VITALS: BP 101/66; PULSE 70; O2SAT 100
--- NOTE | 2024-06-01 14:17 | PC.NURSE ---
Called [facility] about getting the patient an appt. to see Dr. Puente in urology. The material handling warehouse supervisor said that they could not do that and he needs to call that office monday morning.
[2024-06-01] MEDS: LIDOCAINE 2% UROJET 10ML TP (14:26)
[2024-06-01] MEDS: FLUCONAZOLE 200MG TABLET 200 MG PO (14:27)
[2024-06-01] MEDS: OXYBUTYNIN 5MG TAB 5 MG PO (14:29)
[2024-06-01 14:45] VITALS: BP 104/59; PULSE 79; O2SAT 95
[2024-06-01 15:04] VITALS: BP 104/59; PULSE 79; RESP 15; TEMP 36.8; O2SAT 98
== END 2024-06-01 15:05 | disposition home or self-care (01) ==
PROVIDERS: Emergency Provider Emergency Medicine
DX: T83.091A Other mechanical complication of indwelling urethral catheter, initial encounter (principal); N32.89 Other specified disorders of bladder
CPT/HCPCS: 99283; 51702; 87086

== ENCOUNTER 2024-06-07 17:01 | Emergency (ER) | payer MEDICARE, BC, SELFPAY ==
--- NOTE | 2024-06-07 18:22 | ED_ITS ---
<Statement entered by Sary Obrien DO - 06/08/24 00:00> I was consulted by the PALMIRA, and we discussed the complexity of the problems being addressed. I approved the treatment and management plan for this patient's care in the emergency department, thus performing a substantive portion of the medical decision making. Sary Obrien DO Discharge Plan Disposition Patient Disposition: Home, Self-Care Condition: Good Prescriptions Prescriptions: No Action Entresto 24-26 mg tablet 1 tab PO BID Qty: 60 5RF trazodone 100 mg tablet 100 mg PO HS lansoprazole 30 mg capsule,delayed release(DR/EC) 30 mg PO DAILY levocetirizine 5 mg tablet 5 mg PO DAILY Trelegy Ellipta 100-62.5-25 mcg Blister With Device 1 inh INHALATION DAILY famotidine 20 mg tablet 20 mg PO BID duloxetine 60 mg capsule,delayed release(DR/EC) 60 mg PO DAILY Eliquis 5 mg tablet 5 mg PO BID tamsulosin 0.4 mg capsule 0.4 mg PO HS fluticasone propionate 50 mcg/actuation spray,suspension 1 spray INTRANASAL DAILY Rx Instructions: 1 spray in both nostrils metoprolol tartrate 50 mg Tablet 50 mg PO BID atorvastatin 40 mg Tablet 80 mg PO HS 30 Days Qty: 60 0RF clopidogrel 75 mg Tablet 75 mg PO DAILY 30 Days Qty: 30 0RF aspirin 81 mg Tablet,Delayed Release (Dr/Ec) 81 mg PO DAILY Qty: 30 0RF spironolactone 25 mg Tablet 25 mg PO DAILY 30 Days Qty: 30 0RF Jardiance 10 mg Tablet 10 mg PO DAILY 30 Days Qty: 30 0RF cephalexin 500 mg capsule 1,000 mg PO BID 7 Days Qty: 28 0RF oxybutynin chloride 5 mg tablet 5 mg PO BID PRN (Reason: bladder spasms) Qty: 60 0RF dutasteride 0.5 mg Capsule 0.5 mg PO DAILY Referrals Follow up/Referrals: Stefania Pagan APRN [Primary Care Provider] - See instructions Activity Restrictions/Add. Instructions Additional Instructions/Restrictions: Keep your follow-up with urology as scheduled. If you have any continued new or worsening signs or symptoms follow-up with your PCP return to the ER as needed. Clinical Impressions Clinical Impression: Complication of Mcnair catheter Qualifiers: Encounter type: initial encounter Qualified Code(s): T83.9XXA - Unspecified complication of genitourinary prosthetic device, implant and graft, initial encounter Print Language Print Language: Portuguese Discharge ED Provider: Sary Obrien General Adult HPI General Chief complaint: Recheck/Abnormal Lab/Rx Stated complaint: F/C leaking Time Seen by Provider: 06/07/24 18:22 History of Present Illness HPI narrative: Patient presents for Mcnair catheter malfunction. Patient has indwelling Mcnair catheter due to BPH and bladder outlet obstruction. He has had several Mcnair catheter changes due to leakage. He has had this catheter for approximately 5 days. He attempted to contact his urologist however he is unable to get an appointment to last week hence he presented to the emergency department. He denies any chest pain fever chills mops this Floyd's available is normal diarrhea. Related Data Home Medications ?Medication ?Instructions ?Recorded ?Confirmed lansoprazole 30 mg capsule,delayed 30 mg PO DAILY 09/27/22 05/27/24 release levocetirizine 5 mg tablet 5 mg PO DAILY 09/27/22 05/27/24 trazodone 100 mg tablet 100 mg PO HS 09/27/22 05/27/24 fluticasone fur. 100 mcg-umeclid 1 inh inhalation DAILY 01/29/23 05/27/24 62.5 mcg-vilant 25 mcg inhalat.powder (Trelegy Ellipta) apixaban 5 mg tablet (Eliquis) 5 mg PO BID 03/28/24 05/27/24 duloxetine 60 mg capsule,delayed 60 mg PO DAILY 03/28/24 05/27/24 release famotidine 20 mg tablet 20 mg PO BID 03/28/24 05/27/24 fluticasone propionate 50 1 spray intranasal DAILY 03/28/24 05/27/24 mcg/actuation nasal spray,suspension tamsulosin 0.4 mg capsule 0.4 mg PO HS 03/28/24 05/27/24 metoprolol tartrate 50 mg tablet 50 mg PO BID 03/29/24 05/27/24 dutasteride 0.5 mg capsule 0.5 mg PO DAILY 04/29/24 05/27/24 Previous Rx's ?Medication ?Instructions ?Recorded aspirin 81 mg tablet,delayed 81 mg PO DAILY #30 tabs 05/21/24 release atorvastatin 40 mg tablet 80 mg (2 x 40 mg) PO HS 30 days 05/21/24 #60 tabs clopidogrel 75 mg tablet 75 mg PO DAILY 30 days #30 tabs 05/21/24 empagliflozin 10 mg tablet 10 mg PO DAILY 30 days #30 tabs 05/21/24 (Jardiance) spironolactone 25 mg tablet 25 mg PO DAILY 30 days #30 tabs 05/21/24 cephalexin 500 mg capsule 1,000 mg (2 x 500 mg) PO BID 7 05/26/24 days #28 caps sacubitril 24 mg-valsartan 26 mg 1 tab PO BID #60 tabs 05/27/24 tablet (Entresto) oxybutynin chloride 5 mg tablet 5 mg PO BID PRN bladder spasms #60 06/01/24 tabs Allergies Allergy/AdvReac Type Severity Reaction Status Date / Time No Known Allergies Allergy Verified 05/27/24 11:04 [facility] Disclaimer: The information contained in this section may have been updated after the patient was seen, as this information can be updated by other users. Medical History Atypical angina Subdural hemorrhage Swelling of lower leg Dehiscence of operative wound Obesity (BMI 30.0-34.9) Stenosis of carotid artery Left carotid bruit BPH without obstruction/lower urinary tract symptoms BPH (benign prostatic hyperplasia) CALEB (renal artery stenosis) HFrEF (heart failure with reduced ejection fraction) CHF (congestive heart failure) Dyspnea HLD (hyperlipidemia) HTN (hypertension) CAD (coronary artery disease) Abdominal aortic aneurysm CKD (chronic kidney disease) Atrial fibrillation Surgical History H/O fasciotomy Family History Other No significant family history Social History Smoking Status: Never smoker second hand exposure: No alcohol intake: never substance use type: denies use current occupational status: retired Travel in the last 8 weeks: [place] the [place] household members: spouse housing: house caffeine: Yes Have you lived/traveled outside US in past 30 days?: No Contact w/someone who lives/traveled outside US past 30 days?: No Exposure to someone with infectious disease in past 14 days?: No Do you have a fever (greater than 100.4 F or 38 C)?: No Have you tested positive for COVID-19: No Exposed to someone with COVID-19 in past 14 days?: No Do you have a sore throat?: No Do you have a cough?: No Do you have any weakness?: No Do you have any diarrhea?: No Are you experiencing any unusual bleeding?: No Do you have any muscle aches/pain?: No Do you have any abdominal pain?: No Are you experiencing loss of taste or smell?: No Other Medical History Have you received the Flu Vaccine for this season: No Have you received the Pneumonia Vaccine: Yes ROS Obtained: Yes Systems reviewed as appropriate & no additional complaints except as documented Physical Exam General General appearance: alert and in no apparent distress Respiratory Respiratory exam: Present normal lung sounds bilaterally Cardiovascular Cardiovascular exam: Present regular rate Neurological Exam Neurological exam: Present alert and oriented X3 Medical Decision Making Medical Records Medical records reviewed: Yes I reviewed the patient's medical records. Screening: Per USPSTF and CDC recommendations, given the prevalence of disease in our region, it is our hospital?s policy to screen for HIV and viral Hepatitis for all patients aged 18 and over and those with ongoing risk factors. Anjel Inquiry Pt receiving controlled substance: No Vital Signs: 06/07/24 18:49 06/07/24 19:00 06/07/24 19:46 Temperature 98.2 F 98.1 F Temperature Source Oral Pulse Rate 100 H 89 Pulse Rate [Left Radial] 67 Respiratory Rate 20 20 Blood Pressure 111/68 113/61 Blood Pressure [Right Arm] 115/67 Blood Pressure Mean [Right Arm] 83 02 Sat by Pulse Oximetry 97 96 Oxygen Delivery Method Room Air Room Air Lab Data Lab results reviewed: Yes I reviewed the patient's lab results. Medical Decision Narrative: In summary patient is a 83-year-old male who presents to the emergency department for evaluation of aching Mcnair catheter. Patient is hemodynamically stable upon arrival, afebrile. Physical exam is remarkable for urine leaking around the Mcnair catheter however has no suprapubic tenderness no redness no drainage no abdominal tenderness.. Differential diagnosis could include Mcnair catheter blockage versus balloon failure etc. Initial workup considered with labs and imaging however patient has no red flags has no complaints other than leaking urine thus deferred. Initial interventions include Mcnair catheter change. Mcnair catheter exchange was performed successfully and patient is straw-colored urine. Given this patient is appropriate for discharge with no further workup and close follow-up with urology. Critical Care Critical Care Time Critical Care Time: No
[2024-06-07 18:49] VITALS: BP 115/67; PULSE 67; RESP 20; TEMP 36.8; O2SAT 97; BMI 37.3
[2024-06-07 19:00] VITALS: BP 111/68; PULSE 100; O2SAT 96
--- NOTE | 2024-06-07 19:31 | PC.NURSE ---
Pt's sister at bedside.
--- NOTE | 2024-06-07 19:34 | PC.NURSE ---
Report received from Douglas MICHAEL Pt resting quietly in bed Skin pink warm and dry Resp full and easy. Speech clear and appropriate Mcnair changed
[2024-06-07 19:46] VITALS: BP 113/61; PULSE 89; RESP 20; TEMP 36.7; O2SAT 98
== END 2024-06-07 19:47 | disposition home or self-care (01) ==
PROVIDERS: Emergency Provider Emergency Medicine; PCP Nurse Practitioner Family
DX: T83.9XXA Unspecified complication of genitourinary prosthetic device, implant and graft, initial encounter (principal)
CPT/HCPCS: 99283

== ENCOUNTER 2024-06-28 22:17 | Observation (INO) | payer MEDICARE, BC, SELFPAY ==
[2024-06-28 22:19] VITALS: BP 140/71; PULSE 97; RESP 20; TEMP 36.6; O2SAT 99; BMI 23.9
--- NOTE | 2024-06-28 22:26 | XR_ITS ---
PROCEDURE INFORMATION: Exam: XR Chest Exam date and time: 06/28/2024 10:40 PM Age: 83 years old Clinical indication: Cough and shortness of breath; Additional info: Cough, SOA TECHNIQUE: Imaging protocol: Radiologic exam of the chest. Views: 1 view. COMPARISON: CR XR CHEST PORTABLE 05/19/2024 3:58 PM FINDINGS: Lungs: Unremarkable. No consolidation. Pleural spaces: Unremarkable. No pleural effusion. No pneumothorax. Heart/Mediastinum: Unremarkable. No cardiomegaly. Bones/joints: Old post sternotomy changes noted. Moderate degenerative changes of the spine and shoulders IMPRESSION: No acute disease
[2024-06-28 22:30] VITALS: BP 109/67; PULSE 78; O2SAT 99
[2024-06-28 22:30] LABS: Basophils % 0.5 % (0.1-2.0); Eosinophils % 0.5 % (0.1-12.0); Hematocrit 39.3 % (42.0-52.0); Immature Granulocytes # 0.04 10^3uL; Immature Granulocytes % 0.6 %; Lymphocytes # 1.3 K/mm3 (0.7-4.5); Mean Corpuscular HGB Conc 33.1 g/dL (31.8-35.4); Mean Corpuscular Hemoglobin 31.1 pg (27.0-31.2); Mean Platelet Volume 10.6 fl (7.4-10.4); Monocytes # 0.3 K/mm3 (0.1-1.0); Monocytes % 4.8 % (1.7-9.3); Neutrophils # 4.8 K/mm3 (1.8-7.8); Neutrophils % 73.6 % (37.0-80.0); Nucleated Red Blood Cells # 0 10^3/uL; Nucleated Red Blood Cells % 0 %; Platelet Count 218 K/mm3 (142-424); Red Blood Count 4.18 M/mm3 (4.60-6.20); Red Cell Distribution Width 16.9 % (11.5-17.5); Red Cell Distribution Width-SD 58.4 fL; White Blood Count 6.5 K/mm3 (4.8-10.8)
--- NOTE | 2024-06-28 22:30 | PC.NURSE ---
resp contacted and made aware of [facility] order.
[2024-06-28 22:34] LABS: Albumin Level 3.4 g/dl (3.5-5.0); Chloride 105 mmol/L (98-107); Potassium 3.5 mmoL/L (3.5-5.1); Sodium 136 mmol/L (136-145)
[2024-06-28 22:34] LABS: Lactate Venous 1.9 mmol/L (0.4-2.0); VBG Base Excess -0.8 mmol/L (-2.4-2.3); VBG HCO3 25.5 mmol/L (23-30); VBG Oxygen Saturation 52.4 % (50-70); VBG PCO2 52.6 mmol/L (35-51); VBG PO2 30.6 mmol/L (28-40); VBG Total CO2 27.1 mmol/L (23-27)
[2024-06-28 22:37] LABS: Alanine Aminotransferase 14 U/L (12-78); Albumin/Globulin Ratio 1.2 (1.1-1.8); Alkaline Phosphatase 115 U/L (38-126); Anion Gap 7.5 mEq/L (5-15); Aspartate Amino Transferase 17 U/L (17-59); Bilirubin,Total 0.9 mg/dl (0.2-1.3); Blood Urea Nitrogen 10 mg/dl (9-20); Carbon Dioxide 27 mmol/L (22.0-30.0); Creatinine Clearance Estimated 54 mL/min (50-200); Estimated Glomerular Filt Rate 81 ml/min (>60); GFR (African American) 98 ML/MIN (>60); Globulin 2.8 g/dL (1.3-3.2); Total Protein,Serum 6.2 g/dl (6.3-8.2)
[2024-06-28 22:38] LABS: Calcium 8.6 mg/dl (8.4-10.2); Glucose 113 mg/dl (74-100)
[2024-06-28 23:00] VITALS: BP 107/58; PULSE 89; O2SAT 99
--- NOTE | 2024-06-28 23:23 | ED_ITS ---
Discharge Plan Disposition Patient Disposition: Admitted Condition: Fair Clinical Impressions Clinical Impression: Acute exacerbation of chronic obstructive pulmonary disease, Dysphagia, Vomiting, Esophageal obstruction due to food impaction Discharge ED Provider: Chivo Tan General Adult HPI <Keith Davila MD - Last Filed: 06/29/24 16:20> General Chief complaint: Skin/Abscess/Foreign Body Stated complaint: Chocked Time Seen by Provider: 06/28/24 22:24 Mode of Arrival: EMS Source of Information: Patient and EMS Description of Symptoms (Recalled from ER Triage Doc. by RN): Pt presents to ED via EMS after getting choked at home. Pt states he choked on a piece of fried chicken. Pt states he does not feel like anything is caught in his throat and has no complaints at this time. Pt is A&O*4. VSS History of Present Illness HPI narrative: Please note that above description of symptoms, in this electronic medical record under categorization of recalled from ER triage doctor by RN are reflective of an initial nursing assessment, however, is not reflective of my full history and physical exam that was personally taken and clarified. Consequentially, this preceding description of symptoms, which may include the patient's categorized chief complaint in the EMR, do not reflect my personal clinical impression, and the ultimate description of history of present illness and patient stated complaints should be deferred to this section of the note. Unless stated otherwise or congruent with this section of the note, additional signs, symptoms, or incongruence should be interpreted as inaccurate with my clinical impression. Related Data Home Medications ?Medication ?Instructions ?Recorded ?Confirmed lansoprazole 30 mg capsule,delayed 30 mg PO DAILY 09/27/22 06/29/24 release levocetirizine 5 mg tablet 5 mg PO DAILY 09/27/22 06/29/24 trazodone 100 mg tablet 100 mg PO HS 09/27/22 06/29/24 fluticasone fur. 100 mcg-umeclid 1 inh inhalation DAILY 01/29/23 06/29/24 62.5 mcg-vilant 25 mcg inhalat.powder (Trelegy Ellipta) apixaban 5 mg tablet (Eliquis) 5 mg PO BID 03/28/24 06/29/24 duloxetine 60 mg capsule,delayed 60 mg PO DAILY 03/28/24 06/29/24 release famotidine 20 mg tablet 20 mg PO BID 03/28/24 06/29/24 fluticasone propionate 50 1 spray intranasal DAILY 03/28/24 06/29/24 mcg/actuation nasal spray,suspension tamsulosin 0.4 mg capsule 0.4 mg PO HS 03/28/24 06/29/24 metoprolol tartrate 50 mg tablet 50 mg PO BID 03/29/24 06/29/24 dutasteride 0.5 mg capsule 0.5 mg PO DAILY 04/29/24 06/29/24 atorvastatin 80 mg tablet 80 mg PO HS 06/29/24 06/29/24 Previous Rx's ?Medication ?Instructions ?Recorded clopidogrel 75 mg tablet 75 mg PO DAILY 30 days #30 tabs 05/21/24 empagliflozin 10 mg tablet 10 mg PO DAILY 30 days #30 tabs 05/21/24 (Jardiance) spironolactone 25 mg tablet 25 mg PO DAILY 30 days #30 tabs 05/21/24 sacubitril 24 mg-valsartan 26 mg 1 tab PO BID #60 tabs 05/27/24 tablet (Entresto) oxybutynin chloride 5 mg tablet 5 mg PO BID PRN bladder spasms #60 06/01/24 tabs Allergies Allergy/AdvReac Type Severity Reaction Status Date / Time No Known Allergies Allergy Verified 05/27/24 11:04 [facility] <Keith Davila MD - Last Filed: 06/29/24 16:20> [facility] Disclaimer: The information contained in this section may have been updated after the patient was seen, as this information can be updated by other users. Medical History Atypical angina Subdural hemorrhage Swelling of lower leg Dehiscence of operative wound Obesity (BMI 30.0-34.9) Stenosis of carotid artery Left carotid bruit BPH without obstruction/lower urinary tract symptoms BPH (benign prostatic hyperplasia) CALEB (renal artery stenosis) HFrEF (heart failure with reduced ejection fraction) CHF (congestive heart failure) Dyspnea HLD (hyperlipidemia) HTN (hypertension) CAD (coronary artery disease) Abdominal aortic aneurysm CKD (chronic kidney disease) Atrial fibrillation Surgical History H/O fasciotomy Family History Other No significant family history Social History (Updated 06/29/24 @ 09:53 by Katherine Vela RN) Smoking Status: Current every day smoker tobacco type: cigarettes second hand exposure: No alcohol intake: never substance use type: denies use current occupational status: retired Travel in the last 8 weeks?: Inside the [place] household members: spouse housing: house caffeine: Yes Have you lived/traveled outside [place] in past 30 days?: No Contact w/someone who lives/traveled outside [place] past 30 days?: No Exposure to someone with infectious disease in past 14 days?: No Do you have a fever (greater than 100.4 F or 38 C)?: No Have you tested positive for COVID-19?: No Exposed to someone with COVID-19 in past 14 days?: No Do you have a sore throat?: No Do you have a cough?: No Do you have any weakness?: No Do you have any diarrhea?: No Are you experiencing any unusual bleeding?: No Do you have any muscle aches/pain?: No Do you have any abdominal pain?: No Are you experiencing loss of taste or smell?: No Other Medical History Have you received the Flu Vaccine for this season: No Have you received the Pneumonia Vaccine: Yes <Keith Davila MD - Last Filed: 06/29/24 16:20> ROS Obtained: Yes All systems reviewed & no additional complaints except as documented Physical Exam <Keiht Davila MD - Last Filed: 06/29/24 16:20> General General appearance: alert Head Head exam: atraumatic and normocephalic Eye Eye exam: Present normal appearance, PERRL and EOMI Neck Neck exam: Present normal inspection, full ROM and trachea midline Respiratory Respiratory exam: Absent respiratory distress, wheezes, stridor, accessory muscle use or prolonged expiratory phase Cardiovascular Cardiovascular exam: Present other (Pulses equal symmetric in upper and lower extremities) Abdominal Exam Abdominal exam: Present soft; Absent distention, tenderness or pulsatile mass Extremities Exam Extremities exam: Absent edema Neurological Exam Neurological exam: Present alert, oriented X3 and CN II-XII intact; Absent motor sensory deficit Skin Skin exam: Present warm and dry; Absent diaphoresis or erythema Medical Decision Making <Keith Davila MD - Last Filed: 06/29/24 16:20> Medical Records Medical records reviewed: Yes I reviewed the patient's medical records. Screening: Per USPSTF and CDC recommendations, given the prevalence of disease in our region, it is our hospital?s policy to screen for HIV and viral Hepatitis for all patients aged 18 and over and those with ongoing risk factors. Anjel Inquiry Pt receiving controlled substance: No Anjel was queried for this patient: No Vital Signs: 06/28/24 22:19 06/28/24 22:30 06/28/24 23:00 Temperature 97.9 F Temperature Source Oral Pulse Rate 78 89 Pulse Rate [Left] 97 H Respiratory Rate 20 Blood Pressure 109/67 L 107/58 L Blood Pressure [Right Arm] 140/71 Blood Pressure Mean 81 85 Blood Pressure Mean [Right Arm] 94 Blood Pressure Source [Right Arm] Blood Pressure Position Blood Pressure Position [Right Arm] 02 Sat by Pulse Oximetry 99 99 99 Oxygen Delivery Method Nasal Cannula Oxygen Flow Rate (LPM) 4 06/28/24 23:30 06/29/24 00:00 06/29/24 00:30 Temperature Temperature Source Pulse Rate 93 H 80 84 Pulse Rate [Left] Respiratory Rate Blood Pressure 116/69 111/66 132/57 L Blood Pressure [Right Arm] Blood Pressure Mean 84 94 82 Blood Pressure Mean [Right Arm] Blood Pressure Source [Right Arm] Blood Pressure Position Blood Pressure Position [Right Arm] 02 Sat by Pulse Oximetry 99 100 99 Oxygen Delivery Method Oxygen Flow Rate (LPM) 06/29/24 01:00 06/29/24 01:30 06/29/24 02:01 Temperature Temperature Source Pulse Rate 89 81 66 Pulse Rate [Left] Respiratory Rate Blood Pressure 96/67 L 101/56 L 119/77 Blood Pressure [Right Arm] Blood Pressure Mean Blood Pressure Mean [Right Arm] Blood Pressure Source [Right Arm] Blood Pressure Position Blood Pressure Position [Right Arm] 02 Sat by Pulse Oximetry 97 97 98 Oxygen Delivery Method Oxygen Flow Rate (LPM) 06/29/24 04:50 06/29/24 06:20 06/29/24 06:27 Temperature 98.7 F 97.0 F L 97 F L Temperature Source Oral Temporal Artery Scan Pulse Rate 66 95 H Pulse Rate [Left] 99 H Respiratory Rate 16 16 16 Blood Pressure 119/77 120/61 Blood Pressure [Right Arm] 120/61 Blood Pressure Mean Blood Pressure Mean [Right Arm] 80 Blood Pressure Source [Right Arm] Automatic Cuff Blood Pressure Position Sitting Blood Pressure Position [Right Arm] Supine 02 Sat by Pulse Oximetry 94 L Oxygen Delivery Method Room Air Room Air Oxygen Flow Rate (LPM) 06/29/24 06:30 06/29/24 06:40 06/29/24 06:50 Temperature 97.0 F L 97.0 F L 97.0 F L Temperature Source Temporal Artery Scan Temporal Artery Scan Temporal Artery Scan Pulse Rate Pulse Rate [Left] 91 H 101 H 101 H Respiratory Rate 16 16 16 Blood Pressure Blood Pressure [Right Arm] 92/55 L 101/52 L 89/48 L Blood Pressure Mean Blood Pressure Mean [Right Arm] 67 68 61 Blood Pressure Source [Right Arm] Automatic Cuff Automatic Cuff Automatic Cuff Blood Pressure Position Blood Pressure Position [Right Arm] Supine Supine Supine 02 Sat by Pulse Oximetry 94 L 94 L 94 L Oxygen Delivery Method Room Air Room Air Room Air Oxygen Flow Rate (LPM) Lab Data Lab Results 06/28/24 22:18: WBC 6.5, RBC 4.18 L, Hgb 13.0 L, Hct 39.3 L, MCV 94.0, MCH 31.1, MCHC 33.1, RDW 16.9, Plt Count 218, MPV 10.6 H, Neut % (Auto) 73.6, Lymph % (Auto) 20.0, [place] % (Auto) 4.8, Eos % (Auto) 0.5, Baso % (Auto) 0.5, Neut # (Auto) 4.8, Lymph # (Auto) 1.3, [place] # (Auto) 0.3, Eos # (Auto) 0.0, Baso # (Auto) 0.0, Sodium 136, Potassium 3.5, Chloride 105, Carbon Dioxide 27, Anion Gap 7.5, BUN 10, Creatinine 0.90, Estimated Creat Clear 54, Estimated GFR 81, Est GFR ( Amer) 98, Glucose 113 H, Calcium 8.6, Total Bilirubin 0.9, AST 17, ALT 14, Alkaline Phosphatase 115, Total Protein 6.2 L, Albumin 3.4 L, Globulin 2.8, Albumin/Globulin Ratio 1.2 06/28/24 22:28: VBG pH 7.30 L, VBG pCO2 52.6 H, VBG pO2 30.6, VBG HCO3 25.5, VBG Total CO2 27.1 H, VBG O2 Saturation 52.4, VBG Base Excess -0.8, VBG Lactic Acid 1.9 06/28/24 22:18 06/28/24 22:18 Orders (Tests/Meds): ED MEDICATIONS Discontinued Medications Generic Name Dose Route Start Last Admin Trade Name Freq PRN Reason Stop Dose Admin Apixaban 5 mg 06/29/24 11:35 06/29/24 13:50 Apixaban 5mg Tablet PO 07/29/24 11:34 5 mg BID LA Administration Clopidogrel Bisulfate 75 mg 06/29/24 11:35 06/29/24 13:50 Clopidogrel 75mg Tab PO 07/29/24 11:34 75 mg DAILY LA Administration Doxycycline Hyclate 100 mg 06/28/24 23:31 06/28/24 23:44 Doxycycline Hycl 100 Mg Tablet PO 06/28/24 23:32 100 mg ONCE ONE Administration Hydromorphone HCl 0.5 mg 06/29/24 05:21 Hydromorphone 2mg/Ml Syringe IV 06/29/24 07:21 Q5MINP PRN Severe Pain (7-10) Hydromorphone HCl 0.5 mg 06/29/24 06:41 Hydromorphone 2mg/Ml Syringe IV 06/29/24 07:21 Q5MINP PRN Severe Pain (7-10) Lactated Ringer's 1,000 mls @ 25 mls/hr 06/29/24 05:30 Lactated Ringer's 1000 Ml Bag IV 06/29/24 07:29 .Q25H LA Lactated Ringer's 1,000 mls @ 25 mls/hr 06/29/24 05:30 06/29/24 13:33 Lactated Ringer's 1000 Ml Bag IV 06/29/24 07:29 Not Given .Q25H LA Iopamidol 75 ml 06/29/24 00:28 06/29/24 00:30 Iopamidol-370 (76%);100ml Bottle IV 06/29/24 00:29 75 ml ONCE ONE Administration Ketorolac Tromethamine 30 mg 06/29/24 05:21 Ketorolac 30mg/Ml Vial IV 06/29/24 07:21 ONCE PRN Mild Pain (1-3) Ketorolac Tromethamine 30 mg 06/29/24 06:41 Ketorolac 30mg/Ml Vial IV 06/29/24 07:21 ONCE PRN Mild Pain (1-3) Morphine Sulfate 2 mg 06/29/24 05:21 Morphine 2mg/Ml Syringe IV 06/29/24 07:21 Q5MINP PRN Moderate Pain (4-6) Morphine Sulfate 2 mg 06/29/24 06:41 Morphine 2mg/Ml Syringe IV 06/29/24 07:21 Q5MINP PRN Moderate Pain (4-6) Naloxone HCl 0.4 mg 06/29/24 05:21 Naloxone 0.4mg/Ml Vial IV 06/29/24 07:21 Q3MINP PRN Decreased Respirations Naloxone HCl 0.4 mg 06/29/24 06:41 Naloxone 0.4mg/Ml Vial IV 06/29/24 07:21 Q3MINP PRN Decreased Respirations Ondansetron HCl 4 mg 06/29/24 05:21 Ondansetron 4mg/2ml Vial IV 06/29/24 07:21 Q6HP PRN Nausea Ondansetron HCl 4 mg 06/29/24 06:41 Ondansetron 4mg/2ml Vial IV 06/29/24 07:21 Q6HP PRN Nausea Pantoprazole Sodium 40 mg 06/29/24 09:40 06/29/24 10:02 Pantoprazole 40mg Vial IV 07/29/24 09:39 40 mg BID AL Administration Promethazine HCl 6.25 mg 06/29/24 05:21 Promethazine Hcl 25mg/Ml 1ml Vial IV 06/29/24 07:21 [id number] PRN Nausea And Vomiting Promethazine HCl 6.25 mg 06/29/24 06:41 Promethazine Hcl 25mg/Ml 1ml Vial IV 06/29/24 07:21 [id number] PRN Nausea And Vomiting Sodium Chloride 10 ml 06/29/24 00:28 06/29/24 00:30 Sodium Chloride 0.9% 10ml Syr (Rad Only) IV 06/29/24 00:29 10 ml ONCE ONE Administration Sodium Chloride 10 ml 06/29/24 09:38 Sodium Chloride 0.9% 10ml Vial IV 07/29/24 09:37 NEEDED PRN dilute protonix ORDERS Category Date Time Status CT chest w con Stat Cat Scan 06/29/24 00:01 Completed XR chest portable Stat Exams 06/28/24 22:26 Completed CBC w/Auto Diff [Complete Blood Count Auto Diff] Stat Lab 06/28/24 22:18 Completed CMP [Comprehensive Metabolic Panel] Stat Lab 06/28/24 22:18 Completed VBG [Venous Blood Gas] Stat RT 06/28/24 22:28 Completed Medical Decision Narrative: This is an 83-year-old male presenting with choking versus aspiration. Family states that he was sitting at dinner when all of a sudden he started tearing up, seemed as if he was unable to speak or swallow, started having large-volume mucus output that was as thick as rope, which family was able to pull from his mouth. Patient did not syncopized, states that he did not have any chest pain, shortness of breath, nausea or vomiting, states that he just felt he was unable to tolerate the food he was trying to swallow. Tried to drink water, vomited that up as well. Has not tried to tolerate anything since he got here. Has never had difficulty with swallowing in the past, reportedly, but on chart review seems that he is been seen for this before. No shortness of breath, or any complaints currently. History obtained with patient and family, as well as EMS. EMS states that when they got there, his lungs were incredibly wheezy, they gave him multiple DuoNebs and by the time he got here they state that he is better. On arrival, very clinically well. Hemodynamically stable, afebrile, normotensive. 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 Lungs are clear, no lower extremity edema. Abdomen soft, nontender, nondistended. Differential includes aspirated foreign body, food impaction, aspiration pneumonia, among others. Workup initiated with labs and imaging. On independent interpretation, nonactionable hematologic labs. Chest x-ray without acute thoracic abnormality. Patient to be p.o. challenged and given doxycycline due to reported severe wheezing that was improved with DuoNebs. Also to be sent home with prednisone in the morning. Prior to p.o. challenge, care handed off to oncoming physician. Dominick MOHAN: I assumed care of the patient at the time of handoff from the prior provider. 83-year-old male with history of COPD, coronary artery disease, hypertension hyperlipidemia chronic bladder outlet obstruction with chronic indwelling Mcnair presents after getting choked up at home. Symptoms started around 6 when he was eating eggs gracia and potatoes. He may also been eating chicken. He had multiple episodes of emesis and thought he had cleared it but it got worse again. Patient's reportedly sounded tight per EMS and received DuoNebs and route. The initial provider had planned on discharging him with antibiotics for COPD exacerbation after a negative workup. However, patient was unable to tolerate the doxycycline and upon further discussion patient has been spitting up and having difficulty swallowing all evening. We trialed p.o. with water and patient was unable to tolerate liquids. A CT scan of the chest was ordered which on my independent interpretation shows a thickened and fluid-filled esophagus concerning for obstruction at the lower esophageal sphincter. I discussed the case with Dr. Bell who is agreeable to upper endoscopy. Patient has been waiting in the ER due to or availability. During this time patient was sleeping comfortably and no longer spitting up or throwing up. We again trialed p.o. with small volume of water but patient began hiccuping and gurgling again, suggesting that he is not swallowing properly and the impaction may remain. Patient was taken to the OR with Dr. Bell for endoscopy. <Chivo Tan MD - Last Filed: 06/29/24 06:50> Vital Signs: 06/28/24 22:19 06/28/24 22:30 06/28/24 23:00 Temperature 97.9 F Temperature Source Oral Pulse Rate 78 89 Pulse Rate [Left] 97 H Respiratory Rate 20 Blood Pressure 109/67 L 107/58 L Blood Pressure [Right Arm] 140/71 Blood Pressure Mean 81 85 Blood Pressure Mean [Right Arm] 94 Blood Pressure Source [Right Arm] Blood Pressure Position Blood Pressure Position [Right Arm] 02 Sat by Pulse Oximetry 99 99 99 Oxygen Delivery Method Nasal Cannula Oxygen Flow Rate (LPM) 4 06/28/24 23:30 06/29/24 00:00 06/29/24 00:30 Temperature Temperature Source Pulse Rate 93 H 80 84 Pulse Rate [Left] Respiratory Rate Blood Pressure 116/69 111/66 132/57 L Blood Pressure [Right Arm] Blood Pressure Mean 84 94 82 Blood Pressure Mean [Right Arm] Blood Pressure Source [Right Arm] Blood Pressure Position Blood Pressure Position [Right Arm] 02 Sat by Pulse Oximetry 99 100 99 Oxygen Delivery Method Oxygen Flow Rate (LPM) 06/29/24 01:00 06/29/24 01:30 06/29/24 02:01 Temperature Temperature Source Pulse Rate 89 81 66 Pulse Rate [Left] Respiratory Rate Blood Pressure 96/67 L 101/56 L 119/77 Blood Pressure [Right Arm] Blood Pressure Mean Blood Pressure Mean [Right Arm] Blood Pressure Source [Right Arm] Blood Pressure Position Blood Pressure Position [Right Arm] 02 Sat by Pulse Oximetry 97 97 98 Oxygen Delivery Method Oxygen Flow Rate (LPM) 06/29/24 04:50 06/29/24 06:20 06/29/24 06:27 Temperature 98.7 F 97.0 F L 97 F L Temperature Source Oral Temporal Artery Scan Pulse Rate 66 95 H Pulse Rate [Left] 99 H Respiratory Rate 16 16 16 Blood Pressure 119/77 120/61 Blood Pressure [Right Arm] 120/61 Blood Pressure Mean Blood Pressure Mean [Right Arm] 80 Blood Pressure Source [Right Arm] Automatic Cuff Blood Pressure Position Sitting Blood Pressure Position [Right Arm] Supine 02 Sat by Pulse Oximetry 94 L Oxygen Delivery Method Room Air Room Air Oxygen Flow Rate (LPM) 06/29/24 06:30 06/29/24 06:40 06/29/24 06:50 Temperature 97.0 F L 97.0 F L 97.0 F L Temperature Source Temporal Artery Scan Temporal Artery Scan Temporal Artery Scan Pulse Rate Pulse Rate [Left] 91 H 101 H 101 H Respiratory Rate 16 16 16 Blood Pressure Blood Pressure [Right Arm] 92/55 L 101/52 L 89/48 L Blood Pressure Mean Blood Pressure Mean [Right Arm] 67 68 61 Blood Pressure Source [Right Arm] Automatic Cuff Automatic Cuff Automatic Cuff Blood Pressure Position Blood Pressure Position [Right Arm] Supine Supine Supine 02 Sat by Pulse Oximetry 94 L 94 L 94 L Oxygen Delivery Method Room Air Room Air Room Air Oxygen Flow Rate (LPM) Lab Data Lab Results 06/28/24 22:18: WBC 6.5, RBC 4.18 L, Hgb 13.0 L, Hct 39.3 L, MCV 94.0, MCH 31.1, MCHC 33.1, RDW 16.9, Plt Count 218, MPV 10.6 H, Neut % (Auto) 73.6, Lymph % (Auto) 20.0, [place] % (Auto) 4.8, Eos % (Auto) 0.5, Baso % (Auto) 0.5, Neut # (Auto) 4.8, Lymph # (Auto) 1.3, [place] # (Auto) 0.3, Eos # (Auto) 0.0, Baso # (Auto) 0.0, Sodium 136, Potassium 3.5, Chloride 105, Carbon Dioxide 27, Anion Gap 7.5, BUN 10, Creatinine 0.90, Estimated Creat Clear 54, Estimated GFR 81, Est GFR ( Amer) 98, Glucose 113 H, Calcium 8.6, Total Bilirubin 0.9, AST 17, ALT 14, Alkaline Phosphatase 115, Total Protein 6.2 L, Albumin 3.4 L, Globulin 2.8, Albumin/Globulin Ratio 1.2 06/28/24 22:28: VBG pH 7.30 L, VBG pCO2 52.6 H, VBG pO2 30.6, VBG HCO3 25.5, VBG Total CO2 27.1 H, VBG O2 Saturation 52.4, VBG Base Excess -0.8, VBG Lactic Acid 1.9 Orders (Tests/Meds): ED MEDICATIONS Discontinued Medications Generic Name Dose Route Start Last Admin Trade Name Waylonq PRN Reason Stop Dose Admin Apixaban 5 mg 06/29/24 11:35 06/29/24 13:50 Apixaban 5mg Tablet PO 07/29/24 11:34 5 mg BID AL Administration Clopidogrel Bisulfate 75 mg 06/29/24 11:35 06/29/24 13:50 Clopidogrel 75mg Tab PO 07/29/24 11:34 75 mg DAILY LA Administration Doxycycline Hyclate 100 mg 06/28/24 23:31 06/28/24 23:44 Doxycycline Hycl 100 Mg Tablet PO 06/28/24 23:32 100 mg ONCE ONE Administration Hydromorphone HCl 0.5 mg 06/29/24 05:21 Hydromorphone 2mg/Ml Syringe IV 06/29/24 07:21 Q5MINP PRN Severe Pain (7-10) Hydromorphone HCl 0.5 mg 06/29/24 06:41 Hydromorphone 2mg/Ml Syringe IV 06/29/24 07:21 Q5MINP PRN Severe Pain (7-10) Lactated Ringer's 1,000 mls @ 25 mls/hr 06/29/24 05:30 Lactated Ringer's 1000 Ml Bag IV 06/29/24 07:29 .Q25H LA Lactated Ringer's 1,000 mls @ 25 mls/hr 06/29/24 05:30 06/29/24 13:33 Lactated Ringer's 1000 Ml Bag IV 06/29/24 07:29 Not Given .Q25H LA Iopamidol 75 ml 06/29/24 00:28 06/29/24 00:30 Iopamidol-370 (76%);100ml Bottle IV 06/29/24 00:29 75 ml ONCE ONE Administration Ketorolac Tromethamine 30 mg 06/29/24 05:21 Ketorolac 30mg/Ml Vial IV 06/29/24 07:21 ONCE PRN Mild Pain (1-3) Ketorolac Tromethamine 30 mg 06/29/24 06:41 Ketorolac 30mg/Ml Vial IV 06/29/24 07:21 ONCE PRN Mild Pain (1-3) Morphine Sulfate 2 mg 06/29/24 05:21 Morphine 2mg/Ml Syringe IV 06/29/24 07:21 Q5MINP PRN Moderate Pain (4-6) Morphine Sulfate 2 mg 06/29/24 06:41 Morphine 2mg/Ml Syringe IV 06/29/24 07:21 Q5MINP PRN Moderate Pain (4-6) Naloxone HCl 0.4 mg 06/29/24 05:21 Naloxone 0.4mg/Ml Vial IV 06/29/24 07:21 Q3MINP PRN Decreased Respirations Naloxone HCl 0.4 mg 06/29/24 06:41 Naloxone 0.4mg/Ml Vial IV 06/29/24 07:21 Q3MINP PRN Decreased Respirations Ondansetron HCl 4 mg 06/29/24 05:21 Ondansetron 4mg/2ml Vial IV 06/29/24 07:21 Q6HP PRN Nausea Ondansetron HCl 4 mg 06/29/24 06:41 Ondansetron 4mg/2ml Vial IV 06/29/24 07:21 Q6HP PRN Nausea Pantoprazole Sodium 40 mg 06/29/24 09:40 06/29/24 10:02 Pantoprazole 40mg Vial IV 07/29/24 09:39 40 mg BID LA Administration Promethazine HCl 6.25 mg 06/29/24 05:21 Promethazine Hcl 25mg/Ml 1ml Vial IV 06/29/24 07:21 [id number] PRN Nausea And Vomiting Promethazine HCl 6.25 mg 06/29/24 06:41 Promethazine Hcl 25mg/Ml 1ml Vial IV 06/29/24 07:21 [id number] PRN Nausea And Vomiting Sodium Chloride 10 ml 06/29/24 00:28 06/29/24 00:30 Sodium Chloride 0.9% 10ml Syr (Rad Only) IV 06/29/24 00:29 10 ml ONCE ONE Administration Sodium Chloride 10 ml 06/29/24 09:38 Sodium Chloride 0.9% 10ml Vial IV 07/29/24 09:37 NEEDED PRN dilute protonix ORDERS Category Date Time Status CT chest w con Stat Cat Scan 06/29/24 00:01 Completed XR chest portable Stat Exams 06/28/24 22:26 Completed CBC w/Auto Diff [Complete Blood Count Auto Diff] Stat Lab 06/28/24 22:18 Completed CMP [Comprehensive Metabolic Panel] Stat Lab 06/28/24 22:18 Completed VBG [Venous Blood Gas] Stat RT 06/28/24 22:28 Completed Medical Decision Narrative: [history+ROS]. [It should be noted that patient has , which is currently not at goal and complicates care.] History was obtained via conversation with []. On arrival, patient hemodynamically stable, alert, [oriented x4, ][appropriate, ]GCS [15], moving all extremities spontaneously, pupils equal and reactive to light. Full physical exam performed and significant for [Other relevant findings/NIHSS]. Differential includes []. Patient placed on continuous cardiac monitoring and continuous pulse ox with initial blood pressure [], heart rate [], saturation []. [Independent interpretation of EKG shows] []. Patient was given [] for symptomatic management[ and correction of underlying abnormalities]. Workup independently interpreted and significant for []. On independent interpretation of imaging, []. See radiology read for full review of final results. [Nexus/Italian CT head/heart/[id number]/Wells/PERC/Age adjusted/YEARS/MELD]. [] was considered, but deemed unnecessary due to []. On reevaluation, [additional tests/treatment]. [Tissue perfusion reassessment performed within 3 hours, patient mentating, following commands, good capillary refill and hemodynamically stable.] [Consultants] [obs] Given patient presentation, workup, history, this most likely represents []. Less likely []. [SDH] Career Advisor disclaimer Much of this encounter note is an electronic android framework developer spoken language to printed text. Electronic android framework developer of the spoken language may permit errors. Although I have reviewed the note, some errors may still exist. Dominick MOHAN: I assumed care of the patient at the time of handoff from the prior provider. 83-year-old male with history of COPD, coronary artery disease, hypertension hyperlipidemia chronic bladder outlet obstruction with chronic indwelling Mcnair presents after getting choked up at home. Symptoms started around 6 when he was eating eggs gracia and potatoes. He may also been eating chicken. He had multiple episodes of emesis and thought he had cleared it but it got worse again. Patient's reportedly sounded tight per EMS and received DuoNebs and route. The initial provider had planned on discharging him with antibiotics for COPD exacerbation after a negative workup. However, patient was unable to tolerate the doxycycline and upon further discussion patient has been spitting up and having difficulty swallowing all evening. We trialed p.o. with water and patient was unable to tolerate liquids. A CT scan of the chest was ordered which on my independent interpretation shows a thickened and fluid-filled esophagus concerning for obstruction at the lower esophageal sphincter. I discussed the case with Dr. Bell who is agreeable to upper endoscopy. Patient has been waiting in the ER due to or availability. During this time patient was sleeping comfortably and no longer spitting up or throwing up. We again trialed p.o. with small volume of water but patient began hiccuping and gurgling again, suggesting that he is not swallowing properly and the impaction may remain. Patient was taken to the OR with Dr. Bell for endoscopy. Critical Care <Keith Davila MD - Last Filed: 06/29/24 16:20> Critical Care Time Critical Care Time: No
[2024-06-28 23:30] VITALS: BP 116/69; PULSE 93; O2SAT 99
[2024-06-28] MEDS: DOXYCYCLINE HYCL 100 MG TABLET PO (23:44)
[2024-06-29] VITALS (22 sets, daily range): BP systolic 89–132; BP diastolic 41–77; PULSE 66–101; RESP 16–19; TEMP 36.1–37.1; O2SAT 92–100
--- NOTE | 2024-06-29 00:01 | CT_ITS ---
PROCEDURE INFORMATION: Exam: CT Chest With Contrast; Diagnostic Exam date and time: 06/29/2024 12:21 AM Age: 83 years old Clinical indication: Other: Dysphagia, abnormal breath sounds, food bolus? TECHNIQUE: Imaging protocol: Diagnostic computed tomography of the chest with contrast. Radiation optimization: All CT scans at this facility use at least one of these dose optimization techniques: automated exposure control; mA and/or kV adjustment per patient size (includes targeted exams where dose is matched to clinical indication); or iterative reconstruction. Contrast material: ISOVUE; Contrast volume: 75 ml; Contrast route: IV; COMPARISON: CT ANGIO CHEST PE PROTOCOL 03/28/2024 2:15 PM FINDINGS: Lungs: Unremarkable. No consolidation. No masses. Pleural spaces: Unremarkable. No pneumothorax. No pleural effusion. Heart: Unremarkable. No cardiomegaly. No pericardial effusion. Coronary arteries: Dense diffuse coronary artery calcifications. Esophagus: Diffuse concentric wall thickening of the mid to distal esophagus suggesting esophagitis. Lymph nodes: Unremarkable. No enlarged lymph nodes. Vasculature: Moderate atherosclerotic calcification throughout the thoracic aorta. No evidence of aneurysm or dissection. Evaluation of pulmonary arteries is very limited due to poor contrast opacification. No large, central pulmonary embolus evident. Bones/joints: Moderate degenerative changes throughout the lower thoracic spine. No vertebral body compression. No acute fracture. Soft tissues: Unremarkable. IMPRESSION: 1. Diffuse wall thickening of the mid to distal esophagus suggesting esophagitis 2. Chronic osseous and atherosclerotic changes. No acute aortic pathology 3. Limited evaluation of the pulmonary arteries. No gross evidence of pulmonary embolus.
--- NOTE | 2024-06-29 00:01 | PC.NURSE ---
Attempt PO challenge with ordered medications, water. Pt not able to hold down. Dr Tan at the bedside for evaluation.
--- NOTE | 2024-06-29 00:26 | PC.NURSE ---
pt returned from ct scan at this time without incident.
[2024-06-29] MEDS: IOPAMIDOL-370 (76%);100ML BOTTLE 75 ML IV (00:30)
[2024-06-29] MEDS: SODIUM CHLORIDE 0.9% 10ML SYR (RAD ONLY) 10 ML IV (00:30)
--- NOTE | 2024-06-29 00:31 | PC.NURSE ---
provider at the bedside updating pt on POC
--- NOTE | 2024-06-29 02:39 | PC.NURSE ---
pt placed in hospital gown
--- NOTE | 2024-06-29 04:10 | EXP.GEN.HP ---
HPI HPI HPI: Patient is a 83-year-old male who is on lansoprazole and famotidine. No definite history of previous GERD. 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 Primary care provider is Renea Pagan. He had presented to the emergency department in the evening of 06/28/2024 with symptoms consistent with esophageal obstruction secondary to food impaction after he had eaten fried potatoes, eggs, and gracia. He did have some transient improvement of his symptoms after he had presented to the emergency department but when trial of oral liquid intake was tried he had evidence of esophageal obstruction. He did undergo CT scan which revealed some diffuse wall thickening of the mid to distal esophagus suggesting esophagitis. Surgical consultation was obtained. [facility] Disclaimer: The information contained in this section may have been updated after the patient was seen, as this information can be updated by other users. Medical History Atypical angina Subdural hemorrhage Swelling of lower leg Dehiscence of operative wound Obesity (BMI 30.0-34.9) Stenosis of carotid artery Left carotid bruit BPH without obstruction/lower urinary tract symptoms BPH (benign prostatic hyperplasia) CALEB (renal artery stenosis) HFrEF (heart failure with reduced ejection fraction) CHF (congestive heart failure) Dyspnea HLD (hyperlipidemia) HTN (hypertension) CAD (coronary artery disease) Abdominal aortic aneurysm CKD (chronic kidney disease) Atrial fibrillation Surgical History H/O fasciotomy Family History Other No significant family history Social History Smoking Status: Current every day smoker tobacco type: cigarettes second hand exposure: No alcohol intake: never substance use type: denies use current occupational status: retired Travel in the last 8 weeks?: Inside the [place] household members: spouse housing: house caffeine: Yes Have you lived/traveled outside US in past 30 days?: No Contact w/someone who lives/traveled outside US past 30 days?: No Exposure to someone with infectious disease in past 14 days?: No Do you have a fever (greater than 100.4 F or 38 C)?: No Have you tested positive for COVID-19?: No Exposed to someone with COVID-19 in past 14 days?: No Do you have a sore throat?: No Do you have a cough?: No Do you have any weakness?: No Do you have any diarrhea?: No Are you experiencing any unusual bleeding?: No Do you have any muscle aches/pain?: No Do you have any abdominal pain?: No Are you experiencing loss of taste or smell?: No Other Medical History Have you received the Flu Vaccine for this season: No Have you received the Pneumonia Vaccine: Yes Meds Home Medications and Allergies Home Medications ?Medication ?Instructions ?Recorded ?Confirmed ?Type lansoprazole 30 mg capsule,delayed 30 mg PO DAILY 09/27/22 05/27/24 History release levocetirizine 5 mg tablet 5 mg PO DAILY 09/27/22 05/27/24 History trazodone 100 mg tablet 100 mg PO HS 09/27/22 05/27/24 History fluticasone fur. 100 mcg-umeclid 1 inh inhalation DAILY 01/29/23 05/27/24 History 62.5 mcg-vilant 25 mcg inhalat.powder (Trelegy Ellipta) apixaban 5 mg tablet (Eliquis) 5 mg PO BID 03/28/24 05/27/24 History duloxetine 60 mg capsule,delayed 60 mg PO DAILY 03/28/24 05/27/24 History release famotidine 20 mg tablet 20 mg PO BID 03/28/24 05/27/24 History fluticasone propionate 50 1 spray intranasal DAILY 03/28/24 05/27/24 History mcg/actuation nasal spray,suspension tamsulosin 0.4 mg capsule 0.4 mg PO HS 03/28/24 05/27/24 History metoprolol tartrate 50 mg tablet 50 mg PO BID 03/29/24 05/27/24 History dutasteride 0.5 mg capsule 0.5 mg PO DAILY 04/29/24 05/27/24 History aspirin 81 mg tablet,delayed 81 mg PO DAILY #30 tabs 05/21/24 05/27/24 Rx release atorvastatin 40 mg tablet 80 mg (2 x 40 mg) PO HS 30 days 05/21/24 05/27/24 Rx #60 tabs clopidogrel 75 mg tablet 75 mg PO DAILY 30 days #30 tabs 05/21/24 05/27/24 Rx empagliflozin 10 mg tablet 10 mg PO DAILY 30 days #30 tabs 05/21/24 05/27/24 Rx (Jardiance) spironolactone 25 mg tablet 25 mg PO DAILY 30 days #30 tabs 05/21/24 05/27/24 Rx cephalexin 500 mg capsule 1,000 mg (2 x 500 mg) PO BID 7 05/26/24 05/27/24 Rx days #28 caps sacubitril 24 mg-valsartan 26 mg 1 tab PO BID #60 tabs 05/27/24 05/27/24 Rx tablet (Entresto) oxybutynin chloride 5 mg tablet 5 mg PO BID PRN bladder spasms #60 06/01/24 Rx tabs doxycycline hyclate 100 mg capsule 100 mg PO BID 5 days #10 caps 06/28/24 Rx prednisone 20 mg tablet 40 mg (2 x 20 mg) PO DAILY 5 days 06/28/24 Rx #10 tabs New Prescriptions to Start Prescriptions: doxycycline hyclate Keith Davila prednisone Keith Davila Allergies Allergy/AdvReac Type Severity Reaction Status Date / Time No Known Allergies Allergy Verified 05/27/24 11:04 Exam Data for Last 24 hours Vital signs and Labs for Last 24 Hours: Temp Pulse Resp BP Pulse Ox O2 Del Method O2 Flow Rate 97.9 F 66 20 119/77 98 Nasal Cannula 4 06/28/24 22:19 06/29/24 02:01 06/28/24 22:19 06/29/24 02:01 06/29/24 02:01 06/28/24 22:19 06/28/24 22:19 Laboratory Results - last 24 hr 06/28/24 22:18: WBC 6.5, RBC 4.18 L, Hgb 13.0 L, Hct 39.3 L, MCV 94.0, MCH 31.1, MCHC 33.1, RDW 16.9, Plt Count 218, MPV 10.6 H, Neut % (Auto) 73.6, Lymph % (Auto) 20.0, [place] % (Auto) 4.8, Eos % (Auto) 0.5, Baso % (Auto) 0.5, Neut # (Auto) 4.8, Lymph # (Auto) 1.3, [place] # (Auto) 0.3, Eos # (Auto) 0.0, Baso # (Auto) 0.0, Sodium 136, Potassium 3.5, Chloride 105, Carbon Dioxide 27, Anion Gap 7.5, BUN 10, Creatinine 0.90, Estimated Creat Clear 54, Estimated GFR 81, Est GFR ( Amer) 98, Glucose 113 H, Calcium 8.6, Total Bilirubin 0.9, AST 17, ALT 14, Alkaline Phosphatase 115, Total Protein 6.2 L, Albumin 3.4 L, Globulin 2.8, Albumin/Globulin Ratio 1.2 06/28/24 22:28: VBG pH 7.30 L, VBG pCO2 52.6 H, VBG pO2 30.6, VBG HCO3 25.5, VBG Total CO2 27.1 H, VBG O2 Saturation 52.4, VBG Base Excess -0.8, VBG Lactic Acid 1.9 I & O for Last 24 hours: Intake & Output 06/26/24 06/27/24 06/28/24 06/29/24 11:59 11:59 11:59 11:59 Weight 144 lb Constitutional Constitutional: no acute distress *Routine HEENT Exam Head: Present normocephalic Eye: Present EOMI and PERRL ENT: Present mucous membranes moist *Routine Neck Exam Neck: Present supple; Absent lymphadenopathy *Routine Respiratory Exam Respiratory: Present CTA bilaterally *Routine Cardiovascular Exam Cardiovascular: Present RRR *Routine Abdominal Exam Abdominal: Present soft and normoactive bowel sounds; Absent tenderness *Routine Rectal Exam Rectal:: deferred *Routine Genitalia Exam Genitalia:: deferred *Routine Extremities Exam Extremities: Absent cyanosis, clubbing or edema *Routine Skin Exam Skin: Present warm; Absent rash *Routine Neurological Exam Neurological: Present alert and oriented X3 Results Results Lab Results Last 24 Hours:: Laboratory Results - last 24 hr 06/28/24 22:18: WBC 6.5, RBC 4.18 L, Hgb 13.0 L, Hct 39.3 L, MCV 94.0, MCH 31.1, MCHC 33.1, RDW 16.9, Plt Count 218, MPV 10.6 H, Neut % (Auto) 73.6, Lymph % (Auto) 20.0, [place] % (Auto) 4.8, Eos % (Auto) 0.5, Baso % (Auto) 0.5, Neut # (Auto) 4.8, Lymph # (Auto) 1.3, [place] # (Auto) 0.3, Eos # (Auto) 0.0, Baso # (Auto) 0.0, Sodium 136, Potassium 3.5, Chloride 105, Carbon Dioxide 27, Anion Gap 7.5, BUN 10, Creatinine 0.90, Estimated Creat Clear 54, Estimated GFR 81, Est GFR ( Amer) 98, Glucose 113 H, Calcium 8.6, Total Bilirubin 0.9, AST 17, ALT 14, Alkaline Phosphatase 115, Total Protein 6.2 L, Albumin 3.4 L, Globulin 2.8, Albumin/Globulin Ratio 1.2 06/28/24 22:28: VBG pH 7.30 L, VBG pCO2 52.6 H, VBG pO2 30.6, VBG HCO3 25.5, VBG Total CO2 27.1 H, VBG O2 Saturation 52.4, VBG Base Excess -0.8, VBG Lactic Acid 1.9 Assessment and Plan *Assessment and plan (1) Dysphagia: Status: Acute Category: Medical Code(s): R13.10 - Dysphagia, unspecified (2) Esophageal obstruction due to food impaction: Status: Acute Category: Medical Code(s): T18.128A - Food in esophagus causing other injury, initial encounter; [id number].F3XA - Food entering into or through a natural orifice, initial encounter Plan Given patient's clinical symptoms consistent with ongoing esophageal obstruction plan to proceed with urgent endoscopy.
--- NOTE | 2024-06-29 05:10 | P.PNANES_ITS ---
[facility] Disclaimer: The information contained in this section may have been updated after the patient was seen, as this information can be updated by other users. Medical History Atypical angina Subdural hemorrhage Swelling of lower leg Dehiscence of operative wound Obesity (BMI 30.0-34.9) Stenosis of carotid artery Left carotid bruit BPH without obstruction/lower urinary tract symptoms BPH (benign prostatic hyperplasia) CALEB (renal artery stenosis) HFrEF (heart failure with reduced ejection fraction) CHF (congestive heart failure) Dyspnea HLD (hyperlipidemia) HTN (hypertension) CAD (coronary artery disease) Abdominal aortic aneurysm CKD (chronic kidney disease) Atrial fibrillation Surgical History H/O fasciotomy Family History Other No significant family history Social History Smoking Status: Current every day smoker tobacco type: cigarettes second hand exposure: No alcohol intake: never substance use type: denies use current occupational status: retired Travel in the last 8 weeks?: [place] the [place] household members: spouse housing: house caffeine: Yes Have you lived/traveled outside US in past 30 days?: No Contact w/someone who lives/traveled outside US past 30 days?: No Exposure to someone with infectious disease in past 14 days?: No Do you have a fever (greater than 100.4 F or 38 C)?: No Have you tested positive for COVID-19?: No Exposed to someone with COVID-19 in past 14 days?: No Do you have a sore throat?: No Do you have a cough?: No Do you have any weakness?: No Do you have any diarrhea?: No Are you experiencing any unusual bleeding?: No Do you have any muscle aches/pain?: No Do you have any abdominal pain?: No Are you experiencing loss of taste or smell?: No [facility] Anesthesia Checklist Patient Identification Patient Identification: Arm Band and Verbal (Name & ) Structural Data Admitted From: Home Planned Operative Procedure/s: egd Consent for Planned Operative Procedure(s) Verified: Yes Verified Documents: Surgical Consent NPO Status Verified Time NPO: 18:00 Additional verifications Anesthesia Reactions: No Airway Assessment Mallampati Score:: Class II Dentition: Edentulous Neurological Assessment Level of Consciousness: Awake, Alert and Appropriate Anesthesia Plan Anesthesia Risk discussed: Yes Anesthesia Plan: Verified ASA Class: III Anesthesia Type: General
--- NOTE | 2024-06-29 06:11 | HMH.SCOPE ---
Procedure: Date: 06/29/24 Patient Date of :: 1940 Procedure Performed:: Esophagogastroduodenoscopy with retrieval of food impaction foreign body Indications:: Patient is a 83-year-old male who is on lansoprazole and famotidine. No definite history of previous dysphagia. 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 He is on Eliquis and Plavix. Primary care provider is Renea Pagan. He recently underwent coronary stenting with Dr. Howard. He had presented to the emergency department in the evening of 06/28/2024 with symptoms consistent with esophageal obstruction secondary to food impaction after he had eaten fried potatoes, eggs, and gracia. He did have some transient improvement of his symptoms after he had presented to the emergency department but when trial of oral liquid intake was tried he had evidence of esophageal obstruction. He did undergo CT scan which revealed some diffuse wall thickening of the mid to distal esophagus suggesting esophagitis. Surgical consultation was obtained. Plan was made for emergent upper endoscopy. . Performing Provider:: Anjum Bell MD Referring Provider:: . Sedation:: General endotracheal tube anesthesia Procedure:: Patient history was obtained and appropriate physical examination was performed. Patient's medications and allergies were reviewed. Informed consent was obtained after explaining the benefits, alternatives, and risks of the procedure including, but not limited to, bleeding, perforation, missed lesions, and adverse reaction to anesthesia medications. Patient was transported to endoscopy procedure room. Patient was connected to monitoring devices. Throughout the procedure the patient's blood pressure, pulse, and oxygen saturations were monitored continuously. Patient identification and planned procedure were verified by the staff. Patient was positioned in lateral decubitus position. Patient was intubated. Olympus endoscope was inserted via the oropharynx. There was some tortuosity to the esophagus. There were salivary secretions which were suctioned free. In the distal esophagus there was noted to be multiple impacted portions of food. Puckett net was used with retrieval of a portion of this. This required repeated reinsertion and withdrawal with retrieval of small portions of the food bolus. Attempt was made to use the 3 prong Caesar grasping forcep but this was unsuccessful due to the consistency of the food impaction. Attempt was made on a couple of occasions to use the e- suction device. Only a tiny minuscule amount of food matter was able to be retrieved. Therefore with repeated ongoing reinsertion and withdrawal and use of additional Puckett net devices ultimately the food bolus was able to be retrieved in a piecemeal fashion. Endoscope was then able to be advanced into the gastric lumen. The gastroesophageal junction was encountered at approximately 40 cm. There were a few remaining small pieces of food which were able to be irrigated and manipulated into the distal esophagus and ultimately into the gastric lumen. There appeared to be likely some possible luminal narrowing at the GE junction. This time endoscope was withdrawn. . Findings:: Esophageal obstruction secondary to food impaction Esophageal tortuosity. Gastroesophageal junction at 40 cm Possible distal esophageal stenosis/narrowing Recommendations:: Continue proton pump inhibitors. Limit to clear liquids for 24 hours then very limited soft diet with avoidance of meat products. May plan for repeat endoscopy electively in several weeks with possible biopsies and dilatation if he is able to hold his blood thinners. Complications:: None immediately apparent Estimated blood obtained (mL): 2 Colonoscopy Component Colonoscopy Component Was a colonoscopy performed during today's procedure?: No
--- NOTE | 2024-06-29 06:26 | P.PNANES_ITS ---
[facility] Anesthesia Record Part I Anesthesia Record I Intake, IV Amount: 500 Hydration: Adequate Estimated blood loss (mL): 0 Urine output (mL): 0 Blood Pressure: 120/61 SaO2: 95 Pulse Rate: 95 Airway Patency: Patent Respiratory Rate: 16 Temperature: 97 F Patient is:: Awake and Stable Stable to PACU at:: 06:30
--- NOTE | 2024-06-29 06:56 | PC.NURSE ---
pt arrived to floor from PACU via bed at 0654.
[2024-06-29] MEDS: PANTOPRAZOLE 40MG VIAL 40 MG IV (10:02)
--- NOTE | 2024-06-29 12:27 | PC.NURSE ---
verified all home medicines with [facility]
[2024-06-29] MEDS: CLOPIDOGREL 75MG TAB 75 MG PO (13:50)
[2024-06-29] MEDS: APIXABAN 5MG TABLET 5 MG PO (13:50)
--- NOTE | 2024-06-29 14:02 | EXP.SURG.PN ---
Subjective Narrative: Patient has done well today after emergent EGD for esophageal food impaction. Stable. Tolerating clear liquids at this time. Denies chest pain. Exam Data for Last 24 hours Vital signs and Labs for Last 24 Hours: Temp Pulse Resp BP Pulse Ox O2 Del Method O2 Flow Rate 98.3 F 74 18 111/59 L 95 Room Air 4 06/29/24 12:00 06/29/24 12:00 06/29/24 12:00 06/29/24 12:00 06/29/24 12:00 06/29/24 12:00 06/28/24 22:19 Laboratory Results - last 24 hr 06/28/24 22:18: WBC 6.5, RBC 4.18 L, Hgb 13.0 L, Hct 39.3 L, MCV 94.0, MCH 31.1, MCHC 33.1, RDW 16.9, Plt Count 218, MPV 10.6 H, Neut % (Auto) 73.6, Lymph % (Auto) 20.0, [place] % (Auto) 4.8, Eos % (Auto) 0.5, Baso % (Auto) 0.5, Neut # (Auto) 4.8, Lymph # (Auto) 1.3, [place] # (Auto) 0.3, Eos # (Auto) 0.0, Baso # (Auto) 0.0, Sodium 136, Potassium 3.5, Chloride 105, Carbon Dioxide 27, Anion Gap 7.5, BUN 10, Creatinine 0.90, Estimated Creat Clear 54, Estimated GFR 81, Est GFR ( Amer) 98, Glucose 113 H, Calcium 8.6, Total Bilirubin 0.9, AST 17, ALT 14, Alkaline Phosphatase 115, Total Protein 6.2 L, Albumin 3.4 L, Globulin 2.8, Albumin/Globulin Ratio 1.2 06/28/24 22:28: VBG pH 7.30 L, VBG pCO2 52.6 H, VBG pO2 30.6, VBG HCO3 25.5, VBG Total CO2 27.1 H, VBG O2 Saturation 52.4, VBG Base Excess -0.8, VBG Lactic Acid 1.9 I & O for Last 24 hours: Intake & Output 06/27/24 06/28/24 06/29/24 06/30/24 11:59 11:59 11:59 11:59 Intake Total 620 / 620 105 / 105 Output Total 300 / 300 Balance 320 / 320 105 / 105 Weight 144 lb *Routine Abdominal Exam Abdominal: Present soft Progress Note: A&P Assessment and plan (1) Dysphagia: Status: Acute (2) Esophageal obstruction due to food impaction: Status: Acute Assessment and plan: Possible discharge later with recommendations for limited diet and follow-up as an outpatient for possible elective EGD in several weeks.
--- NOTE | 2024-06-29 15:37 | P.DS_ITS ---
General Admission date:: 06/29/24 HPI HPI HPI: Patient is a 83-year-old male who is on lansoprazole and famotidine. No definite history of previous GERD. 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 Primary care provider is Renea Pagan. He had presented to the emergency department in the evening of 06/28/2024 with symptoms consistent with esophageal obstruction secondary to food impaction after he had eaten fried potatoes, eggs, and gracia. He did have some transient improvement of his symptoms after he had presented to the emergency department but when trial of oral liquid intake was tried he had evidence of esophageal obstruction. He did undergo CT scan which revealed some diffuse wall thickening of the mid to distal esophagus suggesting esophagitis. Surgical consultation was obtained. Hospital Course Hospital Course Hospital Course: Ti Rodríguez is a 83-year-old male with who presented with food impaction s/p EGD with retrieval and disimpaction by general surgery. #Food impaction ? General Surgery consulted, s/p EGD with retrieval and disimpaction on 06/29/2024. Patient did have about a 2-minute run of A-fib RVR HR 170s during the procedure, but has since been stable and rate controlled. ? Tolerated clear liquid diet well, no nausea/vomiting or abdominal pain. ? General Surgery recommends clear liquid diet for 24 hours, and no meat for 24 hours after that. Advance diet as tolerated after that. Advised patient to use his dentures while eating solid foods. ? Will follow-up with PCP within 1 week. #LV dysfunction #History of HFrEF #History of renal artery stenosis ? Euvolemic on room air. ? Continue home clopidogrel 75 mg, Eliquis 5 mg twice daily, Jardiance 10 mg, metoprolol tartrate 50 mg twice daily, Entresto 24/26 mg, spironolactone 25 mg. ? Will need to hold Plavix and Eliquis for 3 days prior to upcoming TURP procedure. #A-fib ? Currently rate controlled. Continue home metoprolol tartrate, Eliquis. #AAA s/p repair #Right AKA #Current smoker ? Had thrombus to right lower extremity during AAA surgery s/p right AKA. Continues to smoke after stopping for years. Extensively counseled, nicotine patch daily. AAA from March [address]. #BPH #Bladder outlet obstruction ? Continue home tamsulosin. ? Will need to hold Plavix and Eliquis for 3 days prior to upcoming TURP procedure. ?Continue Mcnair catheter until follow-up with [facility]. Total time spent on discharge: 32 minutes on chart review, counseling, documentation, and direct care with patient. Exam Data for Last 24 hours Vital signs and Labs for Last 24 Hours: Temp Pulse Resp BP Pulse Ox O2 Del Method O2 Flow Rate 98.3 F 74 18 111/59 L 95 Room Air 4 06/29/24 12:00 06/29/24 12:00 06/29/24 12:00 06/29/24 12:00 06/29/24 12:00 06/29/24 15:00 06/28/24 22:19 Laboratory Results - last 24 hr 06/28/24 22:18: WBC 6.5, RBC 4.18 L, Hgb 13.0 L, Hct 39.3 L, MCV 94.0, MCH 31.1, MCHC 33.1, RDW 16.9, Plt Count 218, MPV 10.6 H, Neut % (Auto) 73.6, Lymph % (Auto) 20.0, Graham % (Auto) 4.8, Eos % (Auto) 0.5, Baso % (Auto) 0.5, Neut # (Auto) 4.8, Lymph # (Auto) 1.3, Graham # (Auto) 0.3, Eos # (Auto) 0.0, Baso # (Auto) 0.0, Sodium 136, Potassium 3.5, Chloride 105, Carbon Dioxide 27, Anion Gap 7.5, BUN 10, Creatinine 0.90, Estimated Creat Clear 54, Estimated GFR 81, Est GFR ( Amer) 98, Glucose 113 H, Calcium 8.6, Total Bilirubin 0.9, AST 17, ALT 14, Alkaline Phosphatase 115, Total Protein 6.2 L, Albumin 3.4 L, Globulin 2.8, Albumin/Globulin Ratio 1.2 06/28/24 22:28: VBG pH 7.30 L, VBG pCO2 52.6 H, VBG pO2 30.6, VBG HCO3 25.5, VBG Total CO2 27.1 H, VBG O2 Saturation 52.4, VBG Base Excess -0.8, VBG Lactic Acid 1.9 I & O for Last 24 hours: Intake & Output 06/26/24 06/27/24 06/28/24 06/29/24 23:59 23:59 23:59 23:59 Intake Total 725 / 725 Output Total 926 / 926 Balance -201 / -201 Weight 65.317 kg Constitutional Constitutional: no acute distress *Routine HEENT Exam Head: Present normocephalic Eye: Present EOMI and PERRL ENT: Present mucous membranes moist *Routine Neck Exam Neck: Present supple; Absent lymphadenopathy *Routine Respiratory Exam Respiratory: Present CTA bilaterally *Routine Cardiovascular Exam Cardiovascular: Present RRR *Routine Abdominal Exam Abdominal: Present soft and normoactive bowel sounds; Absent tenderness *Routine Extremities Exam Extremities: Absent cyanosis, clubbing or edema *Routine Skin Exam Skin: Present warm; Absent rash *Routine Neurological Exam Neurological: Present alert and oriented X3 Results Data Completed and Pending Labs on day of discharge: Labs from last 24 hours 06/28/24 06/28/24 22:28 22:18 WBC 6.5 RBC 4.18 L Hgb 13.0 L Hct 39.3 L MCV 94.0 MCH 31.1 MCHC 33.1 RDW 16.9 Plt Count 218 MPV 10.6 H Neut % (Auto) 73.6 Lymph % (Auto) 20.0 Graham % (Auto) 4.8 Eos % (Auto) 0.5 Baso % (Auto) 0.5 Neut # (Auto) 4.8 Lymph # (Auto) 1.3 Graham # (Auto) 0.3 Eos # (Auto) 0.0 Baso # (Auto) 0.0 VBG pH 7.30 L VBG pCO2 52.6 H VBG pO2 30.6 VBG HCO3 25.5 VBG Total CO2 27.1 H VBG O2 Saturation 52.4 VBG Base Excess -0.8 VBG Lactic Acid 1.9 Sodium 136 Potassium 3.5 Chloride 105 Carbon Dioxide 27 Anion Gap 7.5 BUN 10 Creatinine 0.90 Estimated Creat Clear 54 Estimated GFR 81 Est GFR ( Amer) 98 Glucose 113 H Calcium 8.6 Total Bilirubin 0.9 AST 17 ALT 14 Alkaline Phosphatase 115 Total Protein 6.2 L Albumin 3.4 L Globulin 2.8 Albumin/Globulin Ratio 1.2 DS: Diagnosis Discharge Diagnosis (1) Dysphagia: Status: Acute Code(s): R13.10 - Dysphagia, unspecified (2) Esophageal obstruction due to food impaction: Status: Acute Code(s): T18.128A - Food in esophagus causing other injury, initial encounter; W44.F3XA - Food entering into or through a natural orifice, initial encounter Meds Home Medications and Allergies Home Medications ?Medication ?Instructions ?Recorded ?Confirmed ?Type lansoprazole 30 mg capsule,delayed 30 mg PO DAILY 09/27/22 06/29/24 History release levocetirizine 5 mg tablet 5 mg PO DAILY 09/27/22 06/29/24 History trazodone 100 mg tablet 100 mg PO HS 09/27/22 06/29/24 History fluticasone fur. 100 mcg-umeclid 1 inh inhalation DAILY 01/29/23 06/29/24 History 62.5 mcg-vilant 25 mcg inhalat.powder (Trelegy Ellipta) apixaban 5 mg tablet (Eliquis) 5 mg PO BID 03/28/24 06/29/24 History duloxetine 60 mg capsule,delayed 60 mg PO DAILY 03/28/24 06/29/24 History release famotidine 20 mg tablet 20 mg PO BID 03/28/24 06/29/24 History fluticasone propionate 50 1 spray intranasal DAILY 03/28/24 06/29/24 History mcg/actuation nasal spray,suspension tamsulosin 0.4 mg capsule 0.4 mg PO HS 03/28/24 06/29/24 History metoprolol tartrate 50 mg tablet 50 mg PO BID 03/29/24 06/29/24 History dutasteride 0.5 mg capsule 0.5 mg PO DAILY 04/29/24 06/29/24 History clopidogrel 75 mg tablet 75 mg PO DAILY 30 days #30 tabs 05/21/24 06/29/24 Rx empagliflozin 10 mg tablet 10 mg PO DAILY 30 days #30 tabs 05/21/24 06/29/24 Rx (Jardiance) spironolactone 25 mg tablet 25 mg PO DAILY 30 days #30 tabs 05/21/24 06/29/24 Rx sacubitril 24 mg-valsartan 26 mg 1 tab PO BID #60 tabs 05/27/24 06/29/24 Rx tablet (Entresto) oxybutynin chloride 5 mg tablet 5 mg PO BID PRN bladder spasms #60 06/01/24 06/29/24 Rx tabs atorvastatin 80 mg tablet 80 mg PO HS 06/29/24 06/29/24 History New Prescriptions to Start Prescriptions: Allergies Allergy/AdvReac Type Severity Reaction Status Date / Time No Known Allergies Allergy Verified 05/27/24 11:04 Discharge Plan Disposition Patient Disposition: Home, Self-Care Condition: Fair Follow up Plan Follow up with: Anjum Bell MD [Staff Physician] - Enter time for follow up (please call for follow up apponitment) ProviderGutierrez MD [Primary Care Provider] - See instructions Prescriptions/Medication Reconciliation: Continued Entresto 24-26 mg tablet 1 tab PO BID Qty: 60 5RF trazodone 100 mg tablet 100 mg PO HS lansoprazole 30 mg capsule,delayed release(DR/EC) 30 mg PO DAILY levocetirizine 5 mg tablet 5 mg PO DAILY Trelegy Ellipta 100-62.5-25 mcg Blister With Device 1 inh INHALATION DAILY famotidine 20 mg tablet 20 mg PO BID duloxetine 60 mg capsule,delayed release(DR/EC) 60 mg PO DAILY Eliquis 5 mg tablet 5 mg PO BID tamsulosin 0.4 mg capsule 0.4 mg PO HS fluticasone propionate 50 mcg/actuation spray,suspension 1 spray INTRANASAL DAILY Rx Instructions: 1 spray in both nostrils metoprolol tartrate 50 mg Tablet 50 mg PO BID clopidogrel 75 mg Tablet 75 mg PO DAILY 30 Days Qty: 30 0RF spironolactone 25 mg Tablet 25 mg PO DAILY 30 Days Qty: 30 0RF Jardiance 10 mg Tablet 10 mg PO DAILY 30 Days Qty: 30 0RF oxybutynin chloride 5 mg tablet 5 mg PO BID PRN (Reason: bladder spasms) Qty: 60 0RF dutasteride 0.5 mg Capsule 0.5 mg PO DAILY atorvastatin 80 mg tablet 80 mg PO HS Problem Reconciliation Problems Reviewed?: Yes Patient Discharge Instructions Additional Instructions: Limit to clear liquids for 24 hours then very limited soft diet with avoidance of meat products for 24 hours after that. Patient Instructions: Upper GI Endoscopy, Steakhouse Syndrome, DI for Esophageal Dysphagia Print Language: Micronesian Providers Primary Care Provider: Provider,Referral Admit Provider: Carroll Catalan Attending Provider: Anjum Bell
--- NOTE | 2024-06-29 15:48 | PC.NURSE ---
pt is tolerating po intake well. family @bedside.
[2024-07-01 16:25] VITALS: BP 89/48; PULSE 101; RESP 16; TEMP 36.1; O2SAT 94
--- NOTE | 2024-07-01 16:25 | EXP.ANES.II ---
[facility] Anesthesia Record Part II Anesthesia Record Part II Discharge Time: 06:50 Destination: Medical Surgical Department PACU nurse assessment reviewed?: Yes Patient Condition:: Good Anesthesia Complications:: None Swallowing reflex intact?: Yes Airway Patency: Patent Cyanosis?: No Blood Pressure: 89/48 SaO2: 94 Respiratory Rate: 16 Pulse Rate: 101 Temperature: 97 F Mental Status: Alert & Oriented Pain level:: 0 Nausea and/or vomitting:: None Intake, IV Amount: 0 Hydration: Adequate
--- NOTE | 2024-07-02 10:45 | SW/DCPLANNER ---
Phoned patient x2. Left patient a message and call back number with each phone call. Zhane German
== END 2024-06-29 16:05 | disposition home or self-care (01) ==
LOC: ER 06-29 00:01 → SDC 06-29 06:41 → 2ND 06-29 06:43
PROVIDERS: Emergency Medicine; Admitting Provider Student in an Organized Health Care Education/Training Program; Emergency Provider Emergency Medicine; Visit Provider Surgery
PROC: 0DJ08ZZ Inspection of Upper Intestinal Tract, Via Natural or Artificial Opening Endoscopic (ICD-10-PCS; CPT 43247; principal; 2024-06-29 05:00)
DX: T18.128A Food in esophagus causing other injury, initial encounter (principal); R13.10 Dysphagia, unspecified; F17.210 Nicotine dependence, cigarettes, uncomplicated; I25.10 Atherosclerotic heart disease of native coronary artery without angina pectoris; I25.2 Old myocardial infarction; J44.9 Chronic obstructive pulmonary disease, unspecified; K21.9 Gastro-esophageal reflux disease without esophagitis; I12.9 Hypertensive chronic kidney disease with stage 1 through stage 4 chronic kidney disease, or unspecified chronic kidney disease; E78.5 Hyperlipidemia, unspecified; N18.9 Chronic kidney disease, unspecified; I50.20 Unspecified systolic (congestive) heart failure; I70.1 Atherosclerosis of renal artery; I48.91 Unspecified atrial fibrillation; Z79.51 Long term (current) use of inhaled steroids; Z79.899 Other long term (current) drug therapy; Z79.01 Long term (current) use of anticoagulants; Z79.82 Long term (current) use of aspirin; Z79.52 Long term (current) use of systemic steroids; Z89.611 Acquired absence of right leg above knee; N40.1 Benign prostatic hyperplasia with lower urinary tract symptoms; N32.0 Bladder-neck obstruction; W44.F3XA Food entering into or through a natural orifice, initial encounter
CPT/HCPCS: 43247; 71045; 71260; 80053; 82803; 85025; 99285; J3490; G0378; J1100; J2405; J3010; Q9967

== ENCOUNTER 2024-07-10 07:54 | Emergency (ER) | payer MEDICARE, BC, SELFPAY ==
[2024-07-10] VITALS (10 sets, daily range): BP systolic 117–129; BP diastolic 62–71; PULSE 74–88; RESP 18; TEMP 36.6; O2SAT 96–98; BMI 21.6
--- NOTE | 2024-07-10 08:06 | CT_ITS ---
FINAL REPORT TECHNIQUE: Noncontrast exam. This study was performed with techniques to keep radiation doses as low as reasonably achievable, (ALARA). Individualized dose reduction techniques using automated exposure control or adjustment of mA and/or kV according to the patient's size were employed. This study was performed with techniques to keep radiation doses as low as reasonably achievable, (ALARA). Individualized dose reduction techniques using automated exposure control or adjustment of mA and/or kV according to the patient''s size were employed. CLINICAL HISTORY: fall trauma. swelling, bruising and bleeding above right eye FINDINGS: Mild generalized atrophy and chronic ischemic white matter changes are noted. No cortical edema is present. There is no mass or hemorrhage. Ventricles are normal. Bone windows show no skull fracture or obvious obstructive lesion. There is right periorbital soft tissue swelling. There is right maxillary and frontal sinusitis. IMPRESSION: No acute intracranial abnormality. Reviewed, Interpreted and Dictated by Que Anton MD Transcribed by Lyudmila Davila Authenticated and [facility]
--- NOTE | 2024-07-10 08:06 | CT_ITS ---
FINAL REPORT TECHNIQUE: Thin section axial CT with sagittal reconstruction without contrast This study was performed with techniques to keep radiation doses as low as reasonably achievable, (ALARA). Individualized dose reduction techniques using automated exposure control or adjustment of mA and/or kV according to the patient''s size were employed. CLINICAL HISTORY: fall trauma FINDINGS: No fracture is seen. Alignment is normal. No obvious bony spinal canal stenosis is present. There are moderate diffuse degenerative disc changes. There is dense calcified plaque disease of the left carotid bifurcation. IMPRESSION: Degenerative changes without acute process. Reviewed, Interpreted and Dictated by Que Anton MD Transcribed by Lyudmila Davila Authenticated and [facility]
--- NOTE | 2024-07-10 08:12 | PC.NURSE ---
Dr. Davila at bedside.
--- NOTE | 2024-07-10 08:32 | PC.NURSE ---
pt returned from ct scan.
--- NOTE | 2024-07-10 08:33 | PC.NURSE ---
pt arrived back to room from xray
--- NOTE | 2024-07-10 09:17 | HMH.EDGENADL ---
Discharge Plan Disposition Patient Disposition: Home, Self-Care Prescriptions Prescriptions: No Action Entresto 24-26 mg tablet 1 tab PO BID Qty: 60 5RF memantine 5 mg tablet 5 mg PO BID trazodone 100 mg tablet 100 mg PO HS lansoprazole 30 mg capsule,delayed release(DR/EC) 30 mg PO DAILY levocetirizine 5 mg tablet 5 mg PO DAILY Trelegy Ellipta 100-62.5-25 mcg Blister With Device 1 inh INHALATION DAILY famotidine 20 mg tablet 20 mg PO BID duloxetine 60 mg capsule,delayed release(DR/EC) 60 mg PO DAILY Eliquis 5 mg tablet 5 mg PO BID tamsulosin 0.4 mg capsule 0.4 mg PO HS fluticasone propionate 50 mcg/actuation spray,suspension 1 spray INTRANASAL DAILY Rx Instructions: 1 spray in both nostrils metoprolol tartrate 50 mg Tablet 50 mg PO BID clopidogrel 75 mg Tablet 75 mg PO DAILY 30 Days Qty: 30 0RF spironolactone 25 mg Tablet 25 mg PO DAILY 30 Days Qty: 30 0RF Jardiance 10 mg Tablet 10 mg PO DAILY 30 Days Qty: 30 0RF oxybutynin chloride 5 mg tablet 5 mg PO BID PRN (Reason: bladder spasms) Qty: 60 0RF dutasteride 0.5 mg Capsule 0.5 mg PO DAILY atorvastatin 80 mg tablet 80 mg PO HS Referrals Follow up/Referrals: Stefania Pagan APRN [Primary Care Provider] - See instructions Activity Restrictions/Add. Instructions Additional Instructions/Restrictions: Call your family doctor to establish care for this visit to the emergency department and schedule follow-up within 48 hours to ensure improvement. If you have any worsening of your condition or any other concerning signs or symptoms, return to the emergency department or your primary care doctor for further evaluation. Clinical Impressions Clinical Impression: Fall, Laceration of face Print Language Print Language: Greenlandic Discharge ED Provider: Keith Davila General Adult HPI General Chief complaint: Fall Stated complaint: AO 07/10 0700 fall cut above right eye Time Seen by Provider: 07/10/24 08:00 Mode of Arrival: Wheelchair Source of Information: Patient Description of Symptoms (Recalled from ER Triage Doc. by RN): pt presents to ED stating he tripped and fell approx an hour ago. pt denies any LOC. pt denies any pain at this time. pt alert and oriented. pt has laceration noted to right eyebrow with bruising noted to eye lid. skin tear to right elbow. per report pt was on Eliquis and Plavix but was stopped yesterday. History of Present Illness HPI narrative: Please note that above description of symptoms, in this electronic medical record under categorization of recalled from ER triage doctor by RN are reflective of an initial nursing assessment, however, is not reflective of my full history and physical exam that was personally taken and clarified. Consequentially, this preceding description of symptoms, which may include the patient's categorized chief complaint in the EMR, do not reflect my personal clinical impression, and the ultimate description of history of present illness and patient stated complaints should be deferred to this section of the note. Unless stated otherwise or congruent with this section of the note, additional signs, symptoms, or incongruence should be interpreted as inaccurate with my clinical impression. Related Data Home Medications ?Medication ?Instructions ?Recorded ?Confirmed lansoprazole 30 mg capsule,delayed 30 mg PO DAILY 09/27/22 07/03/24 release levocetirizine 5 mg tablet 5 mg PO DAILY 09/27/22 07/03/24 trazodone 100 mg tablet 100 mg PO HS 09/27/22 07/03/24 fluticasone fur. 100 mcg-umeclid 1 inh inhalation DAILY 01/29/23 07/03/24 62.5 mcg-vilant 25 mcg inhalat.powder (Trelegy Ellipta) apixaban 5 mg tablet (Eliquis) 5 mg PO BID 03/28/24 07/03/24 duloxetine 60 mg capsule,delayed 60 mg PO DAILY 03/28/24 07/03/24 release famotidine 20 mg tablet 20 mg PO BID 03/28/24 07/03/24 fluticasone propionate 50 1 spray intranasal DAILY 03/28/24 07/03/24 mcg/actuation nasal spray,suspension tamsulosin 0.4 mg capsule 0.4 mg PO HS 03/28/24 07/03/24 metoprolol tartrate 50 mg tablet 50 mg PO BID 03/29/24 07/03/24 dutasteride 0.5 mg capsule 0.5 mg PO DAILY 04/29/24 07/03/24 atorvastatin 80 mg tablet 80 mg PO HS 06/29/24 07/03/24 memantine 5 mg tablet 5 mg PO BID 07/03/24 07/03/24 Previous Rx's ?Medication ?Instructions ?Recorded clopidogrel 75 mg tablet 75 mg PO DAILY 30 days #30 tabs 05/21/24 empagliflozin 10 mg tablet 10 mg PO DAILY 30 days #30 tabs 05/21/24 (Jardiance) spironolactone 25 mg tablet 25 mg PO DAILY 30 days #30 tabs 05/21/24 sacubitril 24 mg-valsartan 26 mg 1 tab PO BID #60 tabs 05/27/24 tablet (Entresto) oxybutynin chloride 5 mg tablet 5 mg PO BID PRN bladder spasms #60 06/01/24 tabs Allergies Allergy/AdvReac Type Severity Reaction Status Date / Time No Known Allergies Allergy Verified 07/03/24 10:33 [facility] Disclaimer: The information contained in this section may have been updated after the patient was seen, as this information can be updated by other users. Medical History Atypical angina Subdural hemorrhage Swelling of lower leg Dehiscence of operative wound Obesity (BMI 30.0-34.9) Stenosis of carotid artery Left carotid bruit BPH without obstruction/lower urinary tract symptoms BPH (benign prostatic hyperplasia) CALEB (renal artery stenosis) HFrEF (heart failure with reduced ejection fraction) CHF (congestive heart failure) Dyspnea HLD (hyperlipidemia) HTN (hypertension) CAD (coronary artery disease) Abdominal aortic aneurysm CKD (chronic kidney disease) Atrial fibrillation Surgical History H/O fasciotomy Family History Other No significant family history Social History Smoking Status: Current every day smoker tobacco type: cigarettes second hand exposure: No alcohol intake: never substance use type: denies use current occupational status: retired Travel in the last 8 weeks?: Inside the [place] household members: spouse housing: house caffeine: Yes Have you lived/traveled outside [place] in past 30 days?: No Contact w/someone who lives/traveled outside [place] past 30 days?: No Exposure to someone with infectious disease in past 14 days?: No Do you have a fever (greater than 100.4 F or 38 C)?: No Have you tested positive for COVID-19?: No Exposed to someone with COVID-19 in past 14 days?: No Do you have a sore throat?: No Do you have a cough?: No Do you have any weakness?: No Do you have any diarrhea?: No Are you experiencing any unusual bleeding?: No Do you have any muscle aches/pain?: No Do you have any abdominal pain?: No Are you experiencing loss of taste or smell?: No Other Medical History Have you received the Flu Vaccine for this season: No Have you received the Pneumonia Vaccine: Yes ROS Obtained: Yes All systems reviewed & no additional complaints except as documented Physical Exam General General appearance: alert Head Head exam: normocephalic and other (Hematoma overlying right orbital rim) Eye Eye exam: Present normal appearance, PERRL and EOMI Neck Neck exam: Present normal inspection, full ROM and trachea midline Respiratory Respiratory exam: Absent respiratory distress, wheezes, stridor, accessory muscle use or prolonged expiratory phase Cardiovascular Cardiovascular exam: Present other (Pulses equal symmetric in upper and lower extremities) Abdominal Exam Abdominal exam: Present soft; Absent distention, tenderness or pulsatile mass Extremities Exam Extremities exam: Absent edema Neurological Exam Neurological exam: Present alert, oriented X3 and CN II-XII intact; Absent motor sensory deficit Skin Skin exam: Present warm and dry; Absent diaphoresis or erythema Medical Decision Making Medical Records Medical records reviewed: Yes I reviewed the patient's medical records. Screening: Per USPSTF and CDC recommendations, given the prevalence of disease in our region, it is our hospital?s policy to screen for HIV and viral Hepatitis for all patients aged 18 and over and those with ongoing risk factors. Anjel Inquiry Pt receiving controlled substance: No Anjel was queried for this patient: No Vital Signs: 07/10/24 07:58 07/10/24 08:02 07/10/24 09:01 Temperature 97.8 F Temperature Source Oral Pulse Rate 83 76 Pulse Rate [Right Radial] 83 Respiratory Rate 18 Blood Pressure 122/71 119/67 Blood Pressure [Right Arm] 122/71 Blood Pressure Mean 84 Blood Pressure Mean [Right Arm] 88 Blood Pressure Source [Right Arm] Automatic Cuff Blood Pressure Position [Right Arm] Sitting 02 Sat by Pulse Oximetry 97 97 97 Oxygen Delivery Method Room Air Room Air Room Air 07/10/24 09:30 07/10/24 10:00 07/10/24 10:30 Temperature Temperature Source Pulse Rate 74 83 83 Pulse Rate [Right Radial] Respiratory Rate Blood Pressure 126/65 117/64 129/62 Blood Pressure [Right Arm] Blood Pressure Mean 85 82 91 Blood Pressure Mean [Right Arm] Blood Pressure Source [Right Arm] Blood Pressure Position [Right Arm] 02 Sat by Pulse Oximetry 98 96 96 Oxygen Delivery Method Room Air Room Air Room Air Orders (Tests/Meds): ED MEDICATIONS Discontinued Medications Generic Name Dose Route Start Last Admin Trade Name Freq PRN Reason Stop Dose Admin Lidocaine HCl 10 ml 07/10/24 10:02 07/10/24 10:03 Lidocaine 2% 20ml Vial IJ 07/10/24 10:03 10 ml ONCE ONE Administration ORDERS Category Date Time Status CT cervical spine wo con Stat Cat Scan 07/10/24 08:[address] head/brain wo con Stat Cat Scan 07/10/24 08:06 Completed Medical Decision Narrative: 83-year-old male with history of hypertension, hyperlipidemia, previous subdural hemorrhage, CHF, CAD, CKD, atrial fibrillation not currently on anticoagulation due to recent urology procedure presenting with fall. He states that he got up today, 07/10, about 1/2-hour prior to arrival, he tripped, hit his forehead on the floor. No loss of consciousness. Not having any pain other than mild pain around his eye right where he has a hematoma. Vision is intact. No evidence of hyphema, proptosis, entrapment, conjunctival hemorrhage, pupillary changes, cellulitic change, obvious foreign body, or otherwise irregular ocular findings. No obvious palpable deformity of the orbital rim. Cervical spine nontender. Neurologically intact. Alert and oriented, answering questions appropriately. History obtained with patient and family. Differential includes intracranial hemorrhage, benign MSK injury, cervical spine extension injury, among others. CT scans to be obtained. On independent interpretation, no acute intracranial hemorrhage or cervical spine injury. Given patient presentation, workup, history, this most likely represents no acute intracranial hemorrhage, minor MSK/facial injury in the setting of fall. Laceration repaired. Because patient at baseline without signs or symptoms of clinical decompensation, deemed appropriate for discharge. Results were relayed to patient who voiced understanding and were agreeable to outpatient management and follow up. I discussed my clinical impression with patient and answered all questions. At this time, the evidence for any other entities in the differential is insufficient to warrant any further testing or ED observation. This was explained as well. Advisory was given that persistent or worsening symptoms require further evaluation. I confirmed the understanding of this discussion. Model Set Artist disclaimer Much of this encounter note is an electronic audiology director spoken language to printed text. Electronic audiology director of the spoken language may permit errors. Although I have reviewed the note, some errors may still exist. Procedures Laceration Laceration 1: Site: face Side (If applicable): right Size (cm): 2.5 Description: irregular Depth: involves subcutaneous layer Local Anesthetic: lidocaine 1% Amount of anesthesia used (mL): 5 Pre-repair: wound explored Skin layer closed with: vicryl Size (cm): 3-0 Number of sutures: 4 Critical Care Critical Care Time Critical Care Time: No
[2024-07-10] MEDS: LIDOCAINE 2% 20ML VIAL 10 ML IJ (10:03)
--- NOTE | 2024-07-10 11:11 | PC.NURSE ---
Dr Davila is in pt room fixing the LAC to eyebrow at this time
--- NOTE | 2024-07-10 11:59 | PC.NURSE ---
wound bleeding at d/c, Dr. Davila notified. pressure dressing applied and monitor patient for bleeding at this time.
== END 2024-07-10 12:35 | disposition home or self-care (01) ==
PROVIDERS: Emergency Provider Emergency Medicine; PCP Nurse Practitioner Family
DX: S01.81XA Laceration without foreign body of other part of head, initial encounter (principal); W01.10XA Fall on same level from slipping, tripping and stumbling with subsequent striking against unspecified object, initial encounter
CPT/HCPCS: 12011; 70450; 72125; 99285

== ENCOUNTER 2024-07-26 19:57 | Inpatient (IN) | payer MEDICARE, BC, SELFPAY ==
--- OUTSIDE RECORDS SUMMARY | 2024-05-25 17:30 | XMS_ITS ---
Author Organization [facility] Address [address] [facility] [address] [place] [address] Care Team Providers Care Client Support Analyst Name Role Phone Karol Pagan Primary Care Provider KAROL Pagan APRN Unavailable Unavailable Migration, Provider Unavailable Unavailable Allergies Allergen (clinical drug ingredient) Drug/Non Drug Allergy documented on EMR Reaction Allergy Type Onset Date Status oseltamivir Tamiflu hallucinations Drug Allergy Active REASON FOR VISIT Multum To [facility] Conversion Encounter Medications Medication SIG (Take, Route, Frequency, Duration) Notes Start Date End Date Status Famotidine 20 MG 1 tab(s) orally 2 times a day for 30 days Active POTASSIUM CHLORIDE (BJL-[id number]-YLH M20) 20 MEQ TAKE 1 TABLET BY MOUTH ONCE DAILY for 30 DAYS *Please review for potential replacement for e-prescription and drug interaction check* Active Eliquis 5 MG TAKE 1 TABLET BY MOUTH 2 TIMES A DAY for 30 Active Levocetirizine Dihydrochloride 5 MG 1 tab(s) orally once a day (in the evening) for 30 days Active Trelegy Ellipta 100 MCG-62.5 MCG-25 MCG/INH INHALE 1 PUFF ONCE DAILY for 30 *Please review and pick correct strength[facility]formulati [facility] options. If intended option is not shown, discontinue and re-order from Quick Search* Active Doxycycline Monohydrate 100 MG 1 cap(s) orally 2 times a day for 10 days 05/07/2024 Active Tamsulosin HCl 0.4 MG 1 cap(s) orally at bedtime for 30 days Active Ezetimibe-Simvastatin 10 MG-40 MG 1 TAB(S) ORALLY ONCE A DAY for 30 DAYS *Please review and pick correct strength-formulati on from [employer] options. If intended option is not shown, discontinue and re-order from Quick Search* Active Lansoprazole 30 MG 1 cap(s) orally once a day for 30 days Active DULoxetine HCl 60 MG 1 cap(s) orally once a day for 90 days Active Nystatin 559623 UNIT/GM 1 chely applied topically 3 times a day for 14 days 06/21/2023 Active Flonase Allergy Relief 50 MCG/ACT 1 spray(s) in each nostril once a day for 30 days Active Albuterol Sulfate HFA 108 (90 Base) MCG/ACT 2 INH inhaled every 4 hours for 30 days 05/07/2024 Active Metoprolol Tartrate 50 MG 1 tab(s) orally 2 times a day for 90 days Active traZODone HCl 100 MG 1 tab orally at bedtime for 90 days Active Dutasteride 0.5 MG 1 cap(s) orally once a day Active Encounters Encounter Location Date Provider Diagnosis [facility] [address] [facility] [address] [place] [address] 05/25/2024 Provider Migration Plan Of Treatment Medication Medication Name Sig Start Date Stop Date Notes Doxycycline Monohydrate 100 MG 1 cap(s) orally 2 times a day for 10 days 05/07/2024 Albuterol Sulfate HFA 108 (9 0 Base) MCG/ACT 2 INH inhaled every 4 hours for 30 days 05/07/2024 Next Appt Details Provider Name:Karol Tavares, 07/30/2024 12:00:00 PM, [address] [place] [facility] [address] [facility], [address], [place], [address], Progress Notes * Ti RODRÍGUEZDOB: [birth year] (83 yo M)Acc No.[id number]:05/25/2024 Patient: Ti CESPEDES Provider: Soto hinton Migration :1940 A ge:83 Y S ex:Male Date:05/25/2024 Address: [address] [place], [id number] Pcp:Karol Pagan Subjective: * Chief Complaints: * 1 . [facility] En[facility]. * Medical History: * Medications: T aking Dutasteride 0.5 MG Capsule 1 cap(s) orally once a day , Taking Nystatin 078405 UNIT/GM Cream 1 chely applied topically 3 times a day , Taking Flonase Allergy Relief 50 MCG/ACT Suspension 1 spray(s) in each nostril once a day , Taking Metoprolol Tartrate 50 MG Tablet 1 tab(s) orally 2 times a day , Taking traZODone HCl 100 MG Tablet 1 tab orally at bedtime , Taking DULoxetine HCl 60 MG Capsule Delayed Release Particles 1 cap(s) orally once a day , Taking Ezetimibe-Simvastatin 10 MG-40 MG TABLET 1 TAB(S) ORALLY ONCE A DAY , Notes to Pharmacist: *Please review and pick correct strength-formulation from [facility] options. If intended option is not shown, discontinue and re-order from Quick Search*, Taking Lansoprazole 30 MG Capsule Delayed Release 1 cap(s) orally once a day , Taking Tamsulosin HCl 0.4 MG Capsule 1 cap(s) orally at bedtime , Taking Trelegy Ellipta 100 MCG-62.5 MCG-25 MCG/INH POWDER INHALE 1 PUFF ONCE DAILY , Notes to Pharmacist: *Please review and pick correct strength-formulation from [facility] options. If intended option is not shown, discontinue and re-order from Quick Search*, Taking Eliquis 5 MG Tablet TAKE 1 TABLET BY MOUTH 2 TIMES A DAY , Taking Levocetirizine Dihydrochloride 5 MG Tablet 1 tab(s) orally once a day (in the evening) , Taking Famotidine 20 MG Tablet 1 tab(s) orally 2 times a day , Taking POTASSIUM CHLORIDE (PFU-UOKP-SGQ M20) 20 MEQ TABLET, EXTENDED RELEASE TAKE 1 TABLET BY MOUTH ONCE DAILY , Notes to Pharmacist: *Please review for potential replacement for e-prescription and drug interaction check* * Allergies: T amiflu: hallucinations. Objective: * Vitals: Assessment: Plan: * Treatment: * * Electronic signature of Prov ider Migration on 07/27/2024 at 09:20 PM EDT Sign off status: Pending * Provider: Soto hinton Migration Date: 0 05/25/2024 Generated for Rosanna castro/Paulo/Ann Marieitting on: 0 07/27/2024 09:20 PM EDT
--- OUTSIDE RECORDS SUMMARY | 2024-05-28 08:15 | XMS_ITS ---
Author Organization [facility] Address [address] [facility] [address] [facility] [address] [place] [address] Care Team Providers Care Estate Manager Name Role Phone Stefania Pagan Primary Care Provider STEFANIA Pagan APRN Unavailable Unavailable Allergies Allergen (clinical drug ingredient) Drug/Non Drug Allergy documented on EMR Reaction Allergy Type Onset Date Status oseltamivir Tamiflu hallucinations Drug Allergy Active REASON FOR VISIT Discharged from [facility] on 05/21/24 Medications Medication SIG (Take, Route, Frequency, Duration) Notes Start Date End Date Status Albuterol Sulfate HFA 108 (90 Base) MCG/ACT 2 INH inhaled every 4 hours for 30 days 05/07/2024 Active Famotidine 20 MG 1 tab(s) orally 2 times a day for 30 days Active Memantine HCl 5 MG 1 tablet Orally twice a day for 30 days 05/28/2024 Active Lansoprazole 30 MG 1 cap(s) orally once a day for 30 days Active Tamsulosin HCl 0.4 MG 1 cap(s) orally at bedtime for 30 days Active Trelegy Ellipta 100 MCG-62.5 MCG-25 MCG/INH INHALE 1 PUFF ONCE DAILY for 30 *Please review and pick correct strength-formulati on from Medispan options. If intended option is not shown, discontinue and re-order from Quick Search* Active Eliquis 5 MG TAKE 1 TABLET BY MOUTH 2 TIMES A DAY for 30 Active Levocetirizine Dihydrochloride 5 MG 1 tab(s) orally once a day (in the evening) for 30 days Active Flonase Allergy Relief 50 MCG/ACT 1 spray(s) in each nostril once a day for 30 days Active Metoprolol Tartrate 50 MG 1 tab(s) orally 2 times a day for 90 days Active traZODone HCl 100 MG 1 tab orally at bedtime for 90 days Active DULoxetine HCl 60 MG 1 cap(s) orally once a day for 90 days Active Nystatin 980049 UNIT/GM 1 chely applied topically 3 times a day for 14 days 06/21/2023 Active Atorvastatin Calcium 40 MG 1 tablet Orally Once a day Active Aspirin 81 MG 1 tablet Orally Once a day Active Cephalexin 500 MG 2 capsules Orally twice a day Active Dutasteride 0.5 MG 1 cap(s) orally once a day Active Spironolactone 25 MG 1 tablet Orally Active Jardiance 10 MG 1 tablet Orally Once a day Active Entresto 24-26 MG 1 tablet Orally Twice a day Active Clopidogrel Bisulfate 75 MG 1 tablet Orally Once a day Active Social History Tobacco Use: Social History Observation Description Date Details (start date - stop date) Former Smoker NA - NA Smoking: Question Answer Notes Are you a: former smoker Problems Problem Type SNOMED Code ICD Code Onset Dates Problem Status W/U Status Risk Notes Problem 79607891 Memory loss (R41.3) Active confirmed Problem 120732253 Acute systolic heart failure (I50.21) Active confirmed Vital Signs Temperature 96.4 degrees Fahrenheit 05/29/19 25 Blood pressure systolic 110 mm Hg 05/29/19 25 Blood pressure diastolic 70 mm Hg 025 Heart Rate 80 /min 05/28/2024 Height 65 in 05/28/2024 Weight 145 lbs 05/28/2024 BMI 24.13 kg/m2 05/28/2024 Encounters Encounter Location Date Provider Diagnosis [facility] [address] [place] [address] 05/28/2024 Stefania Pagan Coronary artery dise ase involving [place] coronary artery of [place] heart without angina pectoris I25.10 ; Human metapneumovirus (hMPV) pneumonia J12.3 ; Other retention of urine R33.8 ; Benign prostatic hyperplasia with lower urinary tract symptoms N40.1 ; Acute systolic heart failure I50.21 ; Memory loss R41.3 and COPD exacerbation J44.1 Assessments Encounter Date Diagnosis (ICD Code) Assessment Notes Treatment Notes Treatment Clinical Notes Section Notes 05/28/2024 Coronary artery disease involving [place] coronary artery of [place] heart without angina pectoris (ICD-10 - I25.10) [facility] records reviewed. No acute angina. Keep FU with cardiology. Discharge summary and medication list reviewed. Namenda added. No other changes. 05/28/2024 Human metapneumovirus (hMPV) pneumonia (ICD-10 - J12.3) Resolving. Dexamethasone given today. Stop smoking. Continue inhalers, nebs. Lung check in 2 weeks 05/28/2024 Other retention of urine (ICD-10 - R33.8) 05/28/2024 Benign prostatic hyperplasia with lower urinary tract symptoms (ICD-10 - N40.1) F/c in place. Urine cx from ED is pending. Plan for TURP in 6 weeks 05/28/2024 Acute systolic heart failure (ICD-10 - I50.21) Euvolemic today on exam. Tolerating Entresto well. 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 Trial of Namenda. MOA and SE profile discussed. RTC in 2 weeks 05/28/2024 COPD exacerbation (ICD-10 - J44.1) See above. Plan Of Treatment Medication Medication Name Sig Start Date Stop Date Notes Memantine HCl 5 MG 1 tablet Orally twice a day for 30 days 05/28/2024 Treatment Notes Assessment Notes Coronary artery disease invo lving [place] coronary artery of [place] heart without angina pectoris [facility] records reviewed. No acute angina. Keep FU with cardiology. Discharge summary and medication list reviewed. Namenda added. No other changes. Human metapneumovirus (hMPV) pneumonia R esolving. Dexamethasone given today. Stop smoking. Continue inhalers, nebs. Lung check in 2 weeks Benign prostatic hyperplasia with lower urinary tract symptoms F/c in place. Urine cx from ED is pendin g. Plan for TURP in 6 weeks Acute systolic heart failure Euvolemic t emily on exam. Tolerating Entresto well. Keep FU with cardiology Memory loss Multifactorial in se tting of TBI, CV disease, smoking, recurrent UTI with several hospitalizations. Trial of Namenda. MOA and SE profile discussed. RTC in 2 weeks COPD exacerbation See above. Next Appt Details Follow Up: 2 Weeks, Reason: Provider Name:Stefania Tavares, 07/30/2024 12:00:00 PM, [address], [address], [place], [address], Medications Administered Medication Instructions Date of Administration Dosage Notes Dexamethasone 4mg Injection 05/28/2024 4 mg Progress Notes * Ti RODRÍGUEZDOB: [birth year] (83 yo M)Acc No.[id number]:05/28/2024 HOSP F/U Patient: Ti CESPEDES Provider: Sheldon Pagan APRN :1940 A ge:83 Y S ex:Male Date:05/28/2024 Address: [address], [place], [id number] Subjective: * Chief Complaints: * 1 . Discharged from [facility] on 05/21/24. * HPI: g en: 83 y/o male presents for [facility] FU on NSTEMI, COPD exac and pneumonia. Admitted, treated with IV abx, steroids, fluids, cardiology consulted. Resp PCR HMPV. C with 2 SUSIE. Echo EF 45%. Plan to treat with asa, plavix and eliquis x 30 days. Entresto and jardiance added. Discharged 05/21 on azith and meds as stated above. Seen in ED for confusion and leaking f/c. Cephalexin was added for UTI. Today, patient reports persistent cough. SOA at baseline. Continues to smoke. Denies angina. Has done well with new meds. CMP yesterday at cardiology clinic stable. Intermittent confusion for months. Daughter reports today is a good day. . I ntrim History: Transition of care visit from hospital D ate of admission to hospital: 0 05/19/2024, D ate of receipt of hospital admission report: 0 05/20/2024,?Date of discharge from hospital: 0 05/21/2024, D ate of receipt of hospital discharge summary: 0 05/21/2024, D ischarge medications reviewed and reconciled from hospital: M edications left unchanged. * ROS: A LLERGY: no R unny nose. n o S cratchy throat. ? F UNCTIONAL STATUS: ADLS I mpaired ADL/IADL - living with daughter. ? R ESPIRATORY: Shortness of breath y es, a t baseline. n o C hest congestion. C ough y es, A t baseline. C ARDIOLOGY: no C hest pain. n o L eg edema. C ONSTITUTIONAL: no L oss of appetite. n o F ever. W eakness?yes. n o F atigue. D ERMATOLOGY: no R beau. G ASTROENTEROLOGY: no N ausea. n o V omiting. n o D iarrhea.?no C onstipation. H EMATOLOGY/LYMPH: no S wollen glands. n o E asy bruising. ? N EUROLOGY: no H eadache. M minna loss y es. P SYCHOLOGY: Depression y es, w ell controlled on cymbalta. H igh stress level y es. n o S leep disturbances. n o S uicidal ideation. n o?Anxiety. 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 * Family History: F ather: , heart disease. M other: , cancer. P aternal Grand Father: . P aternal Grand Mother: . M aternal Grand Father: . M aternal Grand Mother: . P aternal uncle: . P aternal aunt: . M aternal uncle: . M aternal aunt: . S iblings: alive, 1 brother 1 sister passed. C hildren: alive. 2 brother(s) , 1 sister(s) - healthy. 2 son(s) , 2 daughter(s) - healthy. .? * Social History: S moking A re you a: f ormer smoker. R ecreational drug use: no. Exercise: no. Home smoke detector use: yes. Caffeine: yes, frequency: daily. Living Will: Yes. Alcohol: no. Sexually active: no. Travel outside [place]: no. Occupation: retired. * Medications: T aking Spironolactone 25 MG Tablet 1 tablet Orally , Taking Jardiance 10 MG Tablet 1 tablet Orally Once a day , Taking Entresto 24-26 MG Tablet 1 tablet Orally Twice a day , Taking Clopidogrel Bisulfate 75 MG Tablet 1 tablet Orally Once a day , Taking Atorvastatin Calcium 40 MG Tablet 1 tablet Orally Once a day , Taking Aspirin 81 MG Tablet Delayed Release 1 tablet Orally Once a day , Taking Cephalexin 500 MG Capsule 2 capsules Orally twice a day , Taking Dutasteride 0.5 MG Capsule 1 cap(s) orally once a day , Taking Nystatin 114237 UNIT/GM Cream 1 chely applied topically 3 [...] cap(s) orally once a day , Taking Lansoprazole 30 MG Capsule Delayed Release 1 cap(s) orally once a day , Taking Tamsulosin HCl 0.4 MG Capsule 1 cap(s) orally at bedtime , Taking Trelegy Ellipta 100 MCG-62.5 MCG- 25 MCG/INH POWDER INHALE 1 PUFF ONCE DAILY , Notes to Pharmacist: *Please review and pick correct strength-formulation from [employer] J[employer] options. If intended option is not shown, discontinue and re-order from Quick Search*, Taking Eliquis 5 MG Tablet TAKE 1 TABLET BY MOUTH 2 TIMES A DAY , Taking Levocetirizine Dihydrochloride 5 MG Tablet 1 tab(s) orally once a day (in the evening) , Taking Famotidine 20 MG Tablet 1 tab(s) orally 2 times a day , Taking Albuterol Sulfate HFA 108 (90 Base) MCG/ACT Aerosol Solution 2 INH inhaled every 4 hours , Discontinued Ezetimibe-Simvastatin 10 MG- 40 MG TABLET 1 TAB(S) ORALLY ONCE A DAY , Notes to Pharmacist: *Please review and pick correct strength-formulation from Medispan options. If intended option is not shown, discontinue and re-order from Quick Search*, Discontinued POTASSIUM CHLORIDE (DPA-ISTC-ESN M20) 20 MEQ TABLET, EXTENDED RELEASE TAKE 1 TABLET BY MOUTH ONCE DAILY , Notes to Pharmacist: *Please review for potential replacement for e- prescription and drug interaction check*, Discontinued Doxycycline Monohydrate 100 MG Capsule 1 cap(s) orally 2 times a day , Medication List reviewed and reconciled with the patient * Allergies: T amiflu: hallucinations. Objective: * Vitals: N urse: jl, Pain: 0, Temp: 96.4, RR: 20, HR: 80, BP: 110/70, Ht: 65, Wt: 145, BMI:24.13. * Examination: G eneral Examination: General P leasant and Cooperative, NAD on RA,. Oral cavity: M oist membranes. Chest: n ormal shape and expansion. Heart: R RR, No m/r/g/h, Nl S1S2, No JVD, 2(+) symmetric pulses. Lungs: l oose rhonchi and wheezes throughout, partially clears with cough. Abdomen: S oft, NTND, BSNA, No organomegaly or peritoneal signs.. Neurologic Exam: A lert and oriented x 3 Moves All 4 Extremities Equally, . Skin: n ormal, no rash, . Peripheral pulses: d iminished . Extremities: r ight AKA site healed. neck s upple,, no thyromegaly,, no lymphadenopathy,. Psych N ormal Mood/Affect. Assessment: * Assessment: 1. C oronary artery disease involving [place] coronary artery of [place] heart without angina pectoris - I25.10 (Primary) 2 . H uman metapneumovirus (hMPV) pneumonia - J12.3? 3. O ther retention of urine - R33.8 4 . B enign prostatic hyperplasia with lower urinary tract symptoms - N40.1 5 . A cute systolic heart failure - I50.21 6 . M minna loss - R41.3 7 . C OPD exacerbation - J44.1 Plan: * Treatment: 2. H uman metapneumovirus (hMPV) pneumonia Notes: Resolving. Dexamethasone given today. Stop smoking. Continue inhalers, nebs. Lung check in 2 weeks 3. B enign prostatic hyperplasia with lower urinary tract symptoms Notes: F/c in place. Urine cx from ED is pending. Plan for TURP in 6 weeks 4. A cute systolic heart failure Notes: Euvolemic today on exam. Tolerating Entresto well. Keep FU with cardiology 5. M minna loss Start Memantine HCl Tablet, 5 MG, 1 tablet, Orally, twice a day, 30 days, 60 Tablet, Refills 0.? 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 Trial of Namenda. MOA and SE profile discussed. RTC in 2 weeks 6. C OPD exacerbation Notes: See above. * Therapeutic Injections: Dexamethasone 4mg Injection : 4 mg (Dose No:1) (Route: Intramuscular) given by JACKIE Childers on left deltoid * Procedure Codes: J 1100 Dexamethasone Sodium Phosphate 4mg Injection, 06581 THERAPEUTIC ADMINISTRATION, 89648 TRANS CARE MGMT 7 DAY DISCH * Follow Up: 2 Weeks * * Sign off status: Completed true * Provider: Sheldon Pagan APRN Date: 0 05/28/2024 Generated for Rosanna castro/Paulo/Ann Marieitting on: 0 07/27/2024 09:20 PM EDT History and Physical Notes * HPI (History of Present Illness) Category Sub-Category Detail Notes Category Not es Intrim History Transition of care v isit from hospital Date of admission to hospital:: 05/19/2024 Date of receipt of hospital admission re port:: 05/20/2024 Date of discharge from hospital:: 2024 Date of receipt of hospital discharge [place] mmary:: 05/21/2024 Discharge medications review ed and reconciled from hospital:: Medications left unchanged gen 83 y/o male pre sents for [facility] FU on NSTEMI, COPD exac and pneumonia. Admitted, treated with IV abx, steroids, fluids, cardiology consulted. Resp PCR HMPV. LHC with 2 SUSIE. Echo EF 45%. Plan to treat with asa, plavix and eliquis x 30 days. Entresto and jardiance added. Discharged 05/21 on azith and meds as stated above. Seen in ED for confusion and leaking f/c. Cephalexin was added for UTI. Today, patient reports persistent cough. SOA at baseline. Continues to smoke. Denies angina. Has done well with new meds. CMP yesterday at cardiology clinic stable. Intermittent confusion for months. Daughter reports today is a good day. Examination Category Sub-Category Detail Notes Category Not es General Examination Heart: RRR, No m/r/ g/h, Nl S1S2, No JVD, 2(+) symmetric pulses Lungs: loose rhonchi and wh eezes throughout, partially clears with cough Abdomen: Soft, NTND, BSNA, No organomegaly or peritoneal signs. Extremities: right AKA site heale d Skin: normal, no rash, Neurologic Exam: Alert and oriented x 3 Moves All 4 Extremities Equally, Oral cavity: Moist membranes Peripheral pulses: diminished Chest: normal shape and exp ansion neck supple,, no thyromeg malena,, no lymphadenopathy, General Pleasant and Cooper[place] tive, NAD on RA, Psych Normal Mood/Affect
--- OUTSIDE RECORDS SUMMARY | 2024-06-11 07:00 | XMS_ITS ---
Author Organization [facility] Address [address] [facility] [address] [place] [address] Care Team Providers Care Rn Pediatric Name Role Phone Stefania Pagan Primary Care Provider [phone] STEFANIA Pagan APRN Unavailable Unavailable Allergies Allergen (clinical drug ingredient) Drug/Non Drug Allergy documented on EMR Reaction Allergy Type Onset Date Status oseltamivir Tamiflu hallucinations Drug Allergy Active Reason For Referral Reason please fax order to [facility] okay to change kidd catheter PRN Diagnosis 1 Urinary retention (R 33.9) Referral Organization [facility] Referring Provider First Name Stefania Referring Provider Last Name Ej Referring Provider Speciality [facility] Referral Priority Routine Reason Home sleep study Diagnosis 1 Urinary retention (R 33.9) Referral Organization [facility] Referring Provider First Name Stefania Referring Provider Last Name Ej Referring Provider [facility] Referred Organization [facility] Referred Address [address] [facility], [place],[address], Referred Provider Specialty Sleep Study General Notes Theresa Petit 2024 10:37:59 AM >sent to [facility] Referral Priority Routine REASON FOR VISIT 2 Week F/U, ED FU d/c 06/01/24-catheter keeps leaking-has appt with Dr. Puente on (kidd is being replace every 6-7 days), appetite is not good-states that nothing taste good, sleeping or in bedall the time, no energy (may be up 3- 4 hours a day, has [facility] Navigator but that ends soon-is wanting an order for them to be able to change his catheter as needed, who do you recommended for Home Health care, states that he is tired-very little participation in OT Medications Medication SIG (Take, Route, Frequency, Duration) Notes Start Date End Date Status Tamsulosin HCl 0.4 MG 1 cap(s) orally at bedtime for 30 days Active Lansoprazole 30 MG 1 cap(s) orally once a day for 30 days Active DULoxetine HCl 60 MG 1 cap(s) orally once a day for 90 days Active Metoprolol Tartrate 50 MG 1 tab(s) orally 2 times a day for 90 days Active Trelegy Ellipta 100 MCG-62.5 MCG-25 MCG/INH INHALE 1 PUFF ONCE DAILY for 30 *Please review and pick correct strength-formulati on from [employer] options. If intended option is not shown, discontinue and re-order from Quick Search* Active Flonase Allergy Relief 50 MCG/ACT 1 spray(s) in each nostril once a day for 30 days Active Nystatin 699995 UNIT/GM 1 chely applied topically 3 times a day for 14 days 06/21/2023 Active Dutasteride 0.5 MG 1 cap(s) orally once a day Active Cephalexin 500 MG 2 capsules Orally twice a day Active Aspirin 81 MG 1 tablet Orally Once a day Active Clopidogrel Bisulfate 75 MG 1 tablet Orally Once a day Active Entresto 24-26 MG 1 tablet Orally Twice a day Active Jardiance 10 MG 1 tablet Orally Once a day Active Spironolactone 25 MG 1 tablet Orally Active Atorvastatin Calcium 40 MG 1 tablet Orally Once a day Active Memantine HCl 5 MG 1 tablet Orally twice a day for 30 days 05/28/2024 Active Albuterol Sulfate HFA 108 (90 Base) MCG/ACT 2 INH inhaled every 4 hours for 30 days 05/07/2024 Active Famotidine 20 MG 1 tab(s) orally 2 times a day for 30 days Active Levocetirizine Dihydrochloride 5 MG 1 tab(s) orally once a day (in the evening) for 30 days Active traZODone HCl 50 MG 1 tab orally at bedtime for 90 days Active Eliquis 5 MG TAKE 1 TABLET BY MOUTH 2 TIMES A DAY for 30 Active Social History Tobacco Use: Social History Observation Description Date Details (start date - stop date) Former Smoker NA - NA Smoking: Question Answer Notes Are you a: former smoker Problems Problem Type SNOMED Code ICD Code Onset Dates Problem Status W/U Status Risk Notes Problem [id number] Daytime somnolence (R40.0) Active confirmed Vital Signs Height 65 in 06/11/2024 Heart Rate 92 /min 06/11/2024 Blood pressure systolic 104 mm Hg 06/12/19 25 Blood pressure diastolic 60 mm Hg 025 Temperature 97.7 degrees Fahrenheit 06/12/19 25 Encounters Encounter Location Date Provider Diagnosis [facility] [address] [place] [address] 06/11/2024 Stefania Pagan Fatigue, unspecified type R53.83 ; Urinary retention R33.9 ; Snoring R06.83 and Daytime somnolence R40.0 Assessments Encounter Date Diagnosis (ICD Code) Assessment Notes Treatment Notes Treatment Clinical Notes Section Notes 06/11/2024 Fatigue, unspecified type (ICD-10 - R53.83) Likely multifactorial with chronic lung disease and multiple chronic conditions Trazodone could be contributing, cut dose in half Recommend sleep study, will arrange No indication to continue OT at this time. Will reconsider once fatigue improves 06/11/2024 Urinary retention (ICD-10 - R33.9) Keep FU with urology later this week 06/11/2024 Snoring (ICD-10 - R06.83) 06/11/2024 Daytime somnolence (ICD-10 - R40.0) Plan Of Treatment Medication Medication Name Sig Start Date Stop Date Notes traZODone HCl 50 MG 1 tab orally at bedtime for 90 days Treatment Notes Assessment Notes Fatigue, unspecified type Likely multifactorial with chronic lung disease and multiple chronic conditions Trazodone could be contributing, cut dose in half Recommend sleep study, will arrange No indication to continue OT at this time. Will reconsider once fatigue improves Urinary retention Keep FU with urology later this week Pending Test Test Name Order Date Sleep Study 06/11/2024 Referrals Referral Date Details 06/11/2024 06/11/2024, please f ax order to [facility] okay to change kidd catheter PRN 06/11/2024 06/11/2024, Home sle ep study, [address], [place], [address], Next Appt Details Follow Up: 6 Weeks, Reason: Provider Name:Stefania Gilliland Albaro Michel, 07/30/2024 12:00:00 PM, [address], [address], [place], [address], Progress Notes * SILVINO TiDOB: [birth year] (83 yo M)Acc No.[id number]:06/11/2024 Progress Notes Patient: Ti CESPEDES Provider: Sheldon Pagan APRN :1940 A ge:83 Y S ex:Male Date:06/11/2024 Address:[address] [place] [address] , [place], [id number] Subjective: * Chief Complaints: * 1 . 2 Week F/U, ED FU d/c 06/01/24-catheter keeps leaking-has appt with Dr. Puente on (kidd is being replace every 6-7 days). 2. Appetite is not good-states that nothing taste good. 3. Sleeping or in bed all the time, no energy (may be up 3-4 hours a day. 4. has [facility] Navigator but that ends soon-is wanting an order for them to be able to change his catheter as needed. 5. who do you recommended for Home Health care. 6. states that he is tired-very little participation in OT. * HPI: g en: Presents with daughter wiht multiple concerns - feels exhausted, sleeping all night and most of the day, + snoring -not participating in OT due to fatigue, released by PT until prosthesis is fitted -f/c continues to leak, being changed in the ER about once a week, home health would like order to change PRN, scheduled to see urology later this week - continues to have poor appetite, no changes with namenda, at baseline. * ROS: A LLERGY: no R unny [...] appetite. n o F ever. W eakness?yes. F atigue yes. D ERMATOLOGY: no R beau. 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 * Family [...] orally once a day , Taking Nystatin 757669 UNIT/GM Cream 1 chely applied topically 3 [...] *Please review and pick correct strength-formulation from [employer] options. If intended option is not shown, [...] 2 INH inhaled every 4 hours , Taking Memantine HCl 5 MG Tablet 1 tablet Orally twice a day , Medication List reviewed and reconciled with the patient * Allergies: T amiflu: hallucinations. Objective: * Vitals: N urse: jl, Pain: 0, Temp:97.7, RR: 20, HR:92, BP: 104/60, Ht: 65, Wt: Not Taken - Declined by Patient, BMI: Not Taken - Declined by Patient. * Examination: G eneral Examination: General P [...] N ormal Mood/Affect. Assessment: * Assessment: 1. F atigue, unspecified type - R53.83 (Primary) 2 . U rinary retention - R33.9 3 . S noring - R06.83 4 . D aytime somnolence - R40.0? Plan: * Treatment: 2. U rinary retention Notes: Keep FU with urology later this week ? Referral To: Reason:please fax order to [facility] okay to change kidd catheter PRN Referral To: Reason:Home sleep study 3. S callie reeseing: Sleep Study * 4.?Daytime somnolence?Imaging: Sleep Study* Home * * Follow Up: 6 Weeks * * Sign off status: Completed true * Provider: Sheldon Pagan APRN Date: 06/11/2024 Generated for Rosanna castro/Paulo/Ann Marieitting on: 07/27/2024 09:19 PM EDT History and Physical Notes * HPI (History of Present Illness) Category Sub-Category Detail Notes Category Not es gen Presents with daughter wiht multiple concerns - feels exhausted, sleeping all night and most of the day, + snoring -not participating in OT due to fatigue, released by PT until prosthesis is fitted -f/c continues to leak, being changed in the ER about once a week, home health would like order to change PRN, scheduled to see urology later this week - continues to have poor appetite, no changes with namenda, at baseline Examination Category Sub-Category Detail Notes Category Not [...] tive, NAD on RA, Psych Normal Mood/Affect Consultation Request Notes Referral Date Referring Provider Referred Provider Not es 06/11/2024 Stefania Pagan , please fax ord er to [facility] okay to change kidd catheter PRN 06/11/2024 Stefania Pagan , Home sleep jennifer dy
--- OUTSIDE RECORDS SUMMARY | 2024-06-25 04:38 | XMS_ITS | Continuity of Care Document ---
Author Organization [facility] Phone Care Team Providers Care Parent Partner Name Role Phone REGINO BURCH V Admitting Unavailable NO, DEFINED P Unavailable Unavailable NO, DEFINED P Primary Care Unavailable REGINO BURCH V Primary Attending Unavailable ALLERGIES AND ADVERSE REACTIONS RESULTS MEDICATIONS SOCIAL HISTORY VITAL SIGNS HEALTH CONCERNS ENCOUNTERS CARE TEAM
--- OUTSIDE RECORDS SUMMARY | 2024-07-10 16:44 | XMS_ITS | Continuity of Care Document ---
Author Organization [facility] Phone Care Team Providers Care Punchboard Inserter Name Role Phone GILBERTO CUNNINGHAM Primary Care MAYUR GAN Admitting MAYUR CORBIN Unavailable MAYUR GAN Primary Attending GILBERTO CUNNINGHAM Unavailable ALLERGIES AND ADVERSE REACTIONS ALLERGIES AND ADVERSE REACTIONS Code System Allergy Substance Adverse Reaction Date Reaction (Severity) Comment Status Reported By Updated By No Known Allergies [id number] on July 08, 2024 9:27:56 PM UTC ASSESSMENTS Lawrence hematuria ; PROBLEMS PATIENT PROBLEMS Code Description/Comments Category Status Upda rory By [id number] Lawrence hematuria active [id number] o n July 08, 2024 8:50:51 PM UTC RESULTS Patient: SILVINO LEWIS Date of : 1940 1 LABORATORY RESULTS ORDER 100: CBC AUTO W DIFF ( LOINC: 07912-2) ORDER DATE: July 08, 2024 6:30:00 PM UTC Specimen Source: EDTA Specimen Type: Blood specime n with EDTA PERFORMING LAB: [address] [id number] Result Comment: Final Result Date: July 08, 2024 8:29:00 PM UTC (TECH: KAC) LOINC TEST FLAG RESULT REFERENCE RANGE UPDA RORY BY 6690-2 Leukocytes [#/volume] in Blood by Automated count N 9.3 K/ul 4.0 K/ul - 10.5 K/ul July 08, 2024 8:29:00 PM UTC (TECH: KAC) 789-8 Erythrocytes [#/volume] in Blood by Automated count L 4.4 M/mm3 4.7 M/mm3 - 6.1 M/mm3 July 08, 2024 8:29:00 PM UTC (TECH: QuesCom) 718-7 Hemoglobin [Mass/volume] in Blood L 13.4 gm/dl 13.5 gm/dl - 18.0 gm/dl July 08, 2024 8:29:00 PM UTC (TECH: [employer]uesCom) 99269-5 Hematocrit [Volume Fraction] of Blood N 42.0 % 42.0 % - 52.0 % July 08, 2024 8:29:00 PM UTC (TECH: QuesCom) 787-2 Erythrocyte mean corpuscular volume [Entitic volume] by Automated count N 95.2 fl 78 fl - 100 fl July 08, 2024 8:29:00 PM UTC (TECH: [employer]uesCom) 785-6 Erythrocyte mean corpuscular hemoglobin [Entitic mass] by Automated count N 30.4 pg 27 pg - 31 pg July 08, 2024 8:29:00 PM UTC (TECH: [employer]uesCom) 786-4 Erythrocyte mean corpuscular hemoglobin concentration [Mass/volume] by Automated count L 31.9 g/dl 32 g/dl - 36 g/dl July 08, 2024 8:29:00 PM UTC (TECH: QuesCom) 38070-1 Erythrocyte distribution width [Ratio] H 17.5 % 11.5 % - 14.0 % July 08, 2024 8:29:00 PM UTC (TECH: QuesCom) 777-3 Platelets [#/volume] in Blood by Automated count N 192 K/ul 150 K/ul - 450 K/ul July 08, 2024 8:29:00 PM UTC (TECH: [employer]uesCom) 02739-9 Platelet mean volume [Entitic volume] in Blood by Automated count H 10.1 fl 6 fl - 9.5 fl July 08, 2024 8:29:00 PM UTC (TECH: [employer]ues[employer]) 43442-5 Neutrophils/100 leukocytes in Blood H 70.4 % 43 % - 65 % July 08, 2024 8:29:00 PM UTC (TECH: [employer]) 736-9 Lymphocytes/100 leukocytes in Blood by Automated count N 20.5 % 20.5 % - 45.5 % July 08, 2024 8:29:00 PM UTC (TECH: [employer]uesCom) 5905-5 Monocytes/100 leukocytes in Blood by Automated count N 8.0 % 5.5 % - 11.7 % July 08, 2024 8:29:00 PM UTC (TECH: QuesCom) 713-8 Eosinophils/100 leukocytes in Blood by Automated count L 0.4 % 0.9 % - 2.9 % July 08, 2024 8:29:00 PM UTC (TECH: QuesCom) 706-2 Basophils/100 leukocytes in Blood by Automated count L 0.1 % 0.2 % - 1.0 % July 08, 2024 8:29:00 PM UTC (TECH: QuesCom) 61664-8 Immature granulocytes/100 leukocytes in Blood by Automated count N 0.6 % 0.0 % - 0.8 % July 08, 2024 8:29:00 PM UTC (TECH: [employer]uesCom) 11045-5 Nucleated cells [#/volume] in Blood N 0.0 % July 08, 2024 8:29:00 PM UTC (TECH: QuesCom) 25061-4 Neutrophils [#/volume] in Blood H 6.5 K/uL 2.2 K/uL - 4.8 K/uL July 08, 2024 8:29:00 PM UTC (TECH: QuesCom) 731-0 Lymphocytes [#/volume] in Blood by Automated count N 1.9 CELL/MCL 1.3 CELL/MCL - 2.9 CELL/MCL July 08, 2024 8:29:00 PM UTC (TECH: QuesCom) 742-7 Monocytes [#/volume] in Blood by Automated count N 0.7 CELL/MCL 0.3 CELL/MCL - 0.8 CELL/MCL July 08, 2024 8:29:00 PM UTC (TECH: QuesCom) 711-2 Eosinophils [#/volume] in Blood by Automated count N 0.0 CELL/MCL 0 CELL/MCL - 0.2 CELL/MCL July 08, 2024 8:29:00 PM UTC (TECH: [employer]uesCom) 704-7 Basophils [#/volume] in Blood by Automated count N 0.0 CELL/MCL 0.0 CELL/MCL - 1.0 CELL/MCL July 08, 2024 8:29:00 PM UTC (TECH: [employer]uesCom) 93019-8 Immature granulocytes [#/volume] in Blood N 0.06 K/ul July 08, 2024 8:29:00 PM [place] (TECH: KA) 61645-0 Nucleated cells [#/volume] in Blood N 0.00 K/uL July 08, 2024 8:29:00 PM UT (TECH: [facility]) 52362-6 Manual Differential panel - Blood N NO July 08, 2024 8:29:00 PM UT (TECH: KA) ORDER 200: COMP METABOLIC PA SHRUTHI (LOINC: 25874-4) ORDER DATE: July 08, 2024 6:30:00 PM UT Specimen Source: PLASMA Specimen Type: Plasma specim en PERFORMING LAB: [address] [id number] Result Comment: Final Result Date: July 08, 2024 8:13:00 PM UT (TECH: DTR) LOINC TEST FLAG RESULT REFERENCE RANGE UPDA RORY BY 2951-2 Sodium [Moles/volume ] in Serum or Plasma N 139 mmol/L 136 mmol/L - 145 mmol/L July 08, 2024 8:10:00 PM UT (TECH: DTR) 2823-3 Potassium [Moles/volume] in Serum or Plasma L 3.2 mmol/L 3.6 mmol/L - 5.0 mmol/L July 08, 2024 8:10:00 PM UT (TECH: DTR) 2075-0 Chloride [Moles/volume] in Serum or Plasma N 102 mmol/L 98 mmol/L - 107 mmol/L July 08, 2024 8:10:00 PM UTC (TECH: DTR) 8-9 Carbon dioxide, tota l [Moles/volume] in Serum or Plasma N 26.1 mmol/L 21.0 mmol/L - 32.0 mmol/L July 08, 2024 8:10:00 PM UTC (TECH: DTR) 72515-9 Anion gap in Blood N 14.1 M 2024 8:10:00 PM UTC (TECH: DTR) 2345-7 Glucose [Mass/volume ] in Serum or Plasma N 72 mg/dl 70 mg/dl - 120 mg/dl July 08, 2024 8:10:00 PM UTC (TECH: DTR) 6299-2 Urea nitrogen [Mass/volume] in Blood N 13 mg/dL 7 mg/dL - 18 mg/dL July 08, 2024 8:10:00 PM UT (TECH: DTR) 39147-5 Creatinine [Moles/volume] in Blood N 1.0 mg/dL 0.6 mg/dL - 1.3 mg/dL July 08, 2024 8:10:00 PM UT (TECH: DTR) 31206-0 Glomerular filtratio n rate/1.73 sq M.predicted by Creatinine-based formula (MDRD) N 76 mlpermin 60 mlpermin July 08, 2024 8:10:00 PM UT (TECH: DTR) 59698-7 Osmolality of Serum or Plasma by calculated by sum of electrolytes N 288 mosm/kg 275 mosm/kg - 301 mosm/kg July 08, 2024 8:10:00 PM UT (TECH: DTR) 2885-2 Protein [Mass/volume ] in Serum or Plasma N 6.4 g/dl 6.4 g/dl - 8.2 g/dl July 08, 2024 8:13:00 PM UT (TECH: DTR) 1751-7 Albumin [Mass/volume ] in Serum or Plasma L 2.9 g/dl 3.4 g/dl - 5.0 g/dl July 08, 2024 8:13:00 PM UT (TECH: DTR) 2336-6 Globulin [Mass/volum e] in Serum N 3.5 July 08, 2024 8:13:00 PM UT (TECH: DTR) 1759-0 Albumin/Globulin [Ma ss Ratio] in Serum or Plasma N 0.8 0.7 - 2 July 08, 2024 8:13:00 PM UT (TECH: DTR) 52585-0 Calcium [Mass/volume ] in Serum or Plasma N 9.0 mg/dl 8.5 mg/dl - 10.5 mg/dl July 08, 2024 8:10:00 PM UT (TECH: DTR) 1975-2 Bilirubin.total [Mass/volume] in Serum or Plasma N 0.90 mg/dL 0.10 mg/dL - 1.00 mg/dL July 08, 2024 8:13:00 PM UT (TECH: DTR) 1920-8 Aspartate aminotransferase [Enzymatic activity/volume] in Serum or Plasma N 11 U/L 0 U/L - 37 U/L July 08, 2024 8:13:00 PM UTC (TECH: DTR) 1742-6 Alanine aminotransferase [Enzymatic activity/volume] in Serum or Plasma N 19 U/L 0 U/L - 65 U/L July 08, 2024 8:13:00 PM UTC (TECH: DTR) 6768-6 Alkaline phosphatase [Enzymatic activity/volume] in Serum or Plasma H 127 U/L 46 U/L - 116 U/L July 08, 2024 8:13:00 PM UTC (TECH: DTR) ORDER 300: PT PROTHROMBIN TI ME W INR (LOINC: 57786-8) ORDER DATE: July 08, 2024 6:30:00 PM UTC Specimen Source: PLASMA Specimen Type: Plasma specim en PERFORMING LAB: [address] [id number] Result Comment: Final Result Date: July 08, 2024 8:26:00 PM UTC (TECH: KAC) LOINC TEST [place] [address]-0 INR in Platelet poor plasma or blood by Coagulation assay H 11.6 SECONDS 9.3 SECONDS - 11.4 SECONDS July 08, 2024 8:26:00 PM UTC (TECH: KAC) 6301-6 INR in Platelet poor plasma by Coagulation assay H 1.1 Ratio 0.97 Ratio - 1.05 Ratio July 08, 2024 8:26:00 PM UT (TECH: KAC) ORDER 400: PTT PARTIAL THROM B TIME (LOINC: 3173-2) ORDER DATE: July 08, 2024 6:30:00 PM UTC Specimen Source: PLASMA Specimen Type: Plasma specim en PERFORMING LAB: [address] [id number] Result Comment: Final Result Date: July 08, 2024 8:26:00 PM UTC (TECH: KAC) LOINC TEST FLAG RESULT REFERENCE RANGE UPDA RORY BY 3173-2 Activated partial thromboplastin time (aPTT) in Blood by Coagulation assay N 28.8 SECONDS 24.5 SECONDS - 32.8 SECONDS July 08, 2024 8:26:00 PM UTC (TECH: KAC) ORDER 1100: CBC AUTO W DIFF (LOINC: 62617-2) ORDER DATE: July 08, 2024 8:52:00 PM UTC Specimen Source: EDTA Specimen Type: Blood specime n with EDTA PERFORMING LAB: [address] [id number] Result Comment: Final Result Date: July 09, 2024 11:14:00 AM UTC (TECH: DTR) LOINC TEST FLAG RESULT REFERENCE RANGE UPDA RORY BY 6690-2 Leukocytes [#/volume] in Blood by Automated count N 7.0 K/ul 4.0 K/ul - 10.5 K/ul July 09, 2024 10:23:00 AM UTC (TECH: DTR) 789-8 Erythrocytes [#/volume] in Blood by Automated count L 4.0 M/mm3 4.7 M/mm3 - 6.1 M/mm3 July 09, 2024 10:23:00 AM UTC (TECH: DTR) 718-7 Hemoglobin [Mass/volume] in Blood L 12.5 gm/dl 13.5 gm/dl - 18.0 gm/dl July 09, 2024 10:23:00 AM UTC (TECH: DTR) 21166-6 Hematocrit [Volume Fraction] of Blood L 38.7 % 42.0 % - 52.0 % July 09, 2024 10:23:00 AM UTC (TECH: DTR) 787-2 Erythrocyte mean corpuscular volume [Entitic volume] by Automated count N 95.8 fl 78 fl - 100 fl July 09, 2024 10:23:00 AM UTC (TECH: DTR) 785-6 Erythrocyte mean corpuscular hemoglobin [Entitic mass] by Automated count N 30.9 pg 27 pg - 31 pg July 09, 2024 10:23:00 AM UTC (TECH: DTR) 786-4 Erythrocyte mean corpuscular hemoglobin concentration [Mass/volume] by Automated count N 32.3 g/dl 32 g/dl - 36 g/dl July 09, 2024 10:23:00 AM UTC (TECH: DTR) 89894-6 Erythrocyte distribution width [Ratio] H 17.8 % 11.5 % - 14.0 % July 09, 2024 10:23:00 AM UTC (TECH: DTR) 777-3 Platelets [#/volume] in Blood by Automated count L 147 K/ul 150 K/ul - 450 K/ul July 09, 2024 10:23:00 AM UTC (TECH: DTR) 36466-3 Platelet mean volume [Entitic volume] in Blood by Automated count H 10.6 fl 6 fl - 9.5 fl July 09, 2024 10:23:00 AM UTC (TECH: DTR) 46499-5 Neutrophils/100 leukocytes in Blood H 70.6 % 43 % - 65 % July 09, 2024 10:23:00 AM UTC (TECH: DTR) 736-9 Lymphocytes/100 leukocytes in Blood by Automated count L 19.7 % 20.5 % - 45.5 % July 09, 2024 10:23:00 AM UTC (TECH: DTR) 5905-5 Monocytes/100 leukocytes in Blood by Automated count N 7.7 % 5.5 % - 11.7 % July 09, 2024 10:23:00 AM UTC (TECH: DTR) 713-8 Eosinophils/100 leukocytes in Blood by Automated count N 1.3 % 0.9 % - 2.9 % July 09, 2024 10:23:00 AM UTC (TECH: DTR) 706-2 Basophils/100 leukocytes in Blood by Automated count L 0.1 % 0.2 % - 1.0 % July 09, 2024 10:23:00 AM UTC (TECH: DTR) 28938-0 Immature granulocytes/100 leukocytes in Blood by Automated count N 0.6 % 0.0 % - 0.8 % July 09, 2024 10:23:00 AM UTC (TECH: DTR) 80405-3 Nucleated cells [#/volume] in Blood N 0.0 % July 09, 2024 10:23:00 AM UTC (TECH: DTR) 07960-4 Neutrophils [#/volume] in Blood H 4.9 K/uL 2.2 K/uL - 4.8 K/uL July 09, 2024 10:23:00 AM UTC (TECH: DTR) 731-0 Lymphocytes [#/volume] in Blood by Automated count N 1.4 CELL/MCL 1.3 CELL/MCL - 2.9 CELL/MCL July 09, 2024 10:23:00 AM UTC (TECH: DTR) 742-7 Monocytes [#/volume] in Blood by Automated count N 0.5 CELL/MCL 0.3 CELL/MCL - 0.8 CELL/MCL July 09, 2024 10:23:00 AM UT (TECH: DTR) 711-2 Eosinophils [#/volume] in Blood by Automated count N 0.1 CELL/MCL 0 CELL/MCL - 0.2 CELL/MCL July 09, 2024 10:23:00 AM UT (TECH: DTR) 704-7 Basophils [#/volume] in Blood by Automated count N 0.0 CELL/MCL 0.0 CELL/MCL - 1.0 CELL/MCL July 09, 2024 10:23:00 AM UT (TECH: DTR) 86059-7 Immature granulocytes [#/volume] in Blood N 0.04 K/ul July 09, 2024 10:23:00 AM [facility] (TECH: DTR) 52385-9 Nucleated cells [#/volume] in Blood N 0.00 K/uL July 09, 2024 10:23:00 AM [facility] (TECH: DTR) 17550-6 Manual Differential panel - Blood N NO July 09, 2024 11:14:00 AM UT (TECH: DTR) ORDER 1200: COMP METABOLIC P ALESSANDRA (LOINC: 49651-6) ORDER DATE: July 08, 2024 8:52:00 PM [facility] Specimen Source: PLASMA Specimen Type: Plasma specim en PERFORMING LAB: [address] [id number] Result Comment: Final Result Date: July 09, 2024 10:34:00 AM [facility] (TECH: SHG) LOINC TEST FLAG RESULT REFERENCE RANGE UPDA RORY BY 2951-2 Sodium [Moles/volume ] in Serum or Plasma N 141 mmol/L 136 mmol/L - 145 mmol/L July 09, 2024 10:34:00 AM UT (TECH: SHG) 2823-3 Potassium [Moles/vol ume] in Serum or Plasma L 3.5 mmol/L 3.6 mmol/L - 5.0 mmol/L July 09, 2024 10:34:00 AM UT (TECH: SHG) 2075-0 Chloride [Moles/volu me] in Serum or Plasma H 108 mmol/L 98 mmol/L - 107 mmol/L July 09, 2024 10:34:00 AM UT (TECH: [employer]) 8- Carbon dioxide, tota l [Moles/volume] in Serum or Plasma N 24.8 mmol/L 21.0 mmol/L - 32.0 mmol/L July 09, 2024 10:34:00 AM UT (TECH: [employer]) 19456-4 Anion gap in Blood N 11.7 M 2024 10:34:00 AM UT (TECH: [employer]) 2345-7 Glucose [Mass/volume ] in Serum or Plasma L 67 mg/dl 70 mg/dl - 120 mg/dl July 09, 2024 10:34:00 AM UT ([employer]: [employer]) 6299-2 Urea nitrogen [Mass/volume] in Blood N 11 mg/dL 7 mg/dL - 18 mg/dL June 10:34:00 AM UT (TECH: [employer]) 81192-0 Creatinine [Moles/vo lume] in Blood N 0.8 mg/dL 0.6 mg/dL - 1.3 mg/dL July 09, 2024 10:34:00 AM [facility] ([employer]: [employer]) 84524-4 Glomerular filtratio n rate/1.73 sq M.predicted by Creatinine-based formula (MDRD) N 89 mlpermin 60 mlpermin July 09, 2024 10:34:00 AM [facility] ([employer]: [employer]) 55159-7 Osmolality of Serum or Plasma by calculated by sum of electrolytes N 291 mosm/kg 275 mosm/kg - 301 mosm/kg July 09, 2024 10:34:00 AM [facility] (TECH: [employer]) 2885-2 Protein [Mass/volume ] in Serum or Plasma L 5.1 g/dl 6.4 g/dl - 8.2 g/dl July 09, 2024 10:34:00 AM [place] (TECH: [employer]) 1751-7 Albumin [Mass/volume ] in Serum or Plasma L 2.3 g/dl 3.4 g/dl - 5.0 g/dl July 09, 2024 10:34:00 AM UT (TECH: [employer]) 2336-6 Globulin [Mass/volum e] in Serum N 2.8 July 09, 2024 10:34:00 AM [facility] ([employer]: [employer]) 1759-0 Albumin/Globulin [Ma ss Ratio] in Serum or Plasma N 0.8 0.7 - 2 June 10:34:00 AM [facility] ([employer]) 60110-7 Calcium [Mass/volume ] in Serum or Plasma L 8.2 mg/dl 8.5 mg/dl - 10.5 mg/dl July 09, 2024 10:34:00 AM [facility] ([employer]) 1975-2 Bilirubin.total [Mass/volume] in Serum or Plasma N 0.70 mg/dL 0.10 mg/dL - 1.00 mg/dL July 09, 2024 10:34:00 AM [facility] ([employer]) 1920-8 Aspartate aminotrans ferase [Enzymatic activity/volume] in Serum or Plasma N 10 U/L 0 U/L - 37 U/L July 09, 2024 10:34:00 AM [facility] ([employer]) 1742-6 Alanine aminotransfe rase [Enzymatic activity/volume] in Serum or Plasma N 16 U/L 0 U/L - 65 U/L July 09, 2024 10:34:00 AM [facility] ([employer]) 6768-6 Alkaline phosphatase [Enzymatic activity/volume] in Serum or Plasma N 90 U/L 46 U/L - 116 U/L July 09, 2024 10:34:00 AM [facility] ([employer]: [employer]) LABORATORY NARRATIVE RESULTS Information is not available RADIOLOGY RESULTS Information is not available PATHOLOGY NARRATIVE RESULTS Information is not available MICROBIOLOGY RESULTS No Micro Labs/Results Exist for Patient BLOOD ADMIN RESULTS Information is not available TREATMENT PLAN DISCHARGE MEDICATIONS Status RXNORM Medication Dose Route Frequency Dates Comments U pdated By Continued fluticasone propionate nasal unknown 1 SPR ONCE DAILY Prescri bed: July 09, 2024 6:25:15 PM [facility] [id number] on July 09, 2024 6:25:15 PM [facility] Continued 126669 lansoprazole 30 mg capsule,delayed release (e.c.) 1 CAP ORAL ONCE DAILY Prescri bed: July 09, 2024 6:25:15 PM [facility] [id number] on July 09, 2024 6:25:15 PM [facility] Continued 316712 trazodone 100 mg tablet 1 TAB ORAL AT BEDTIME Prescri bed: July 09, 2024 6:25:15 PM [place] [id number] on July 09, 2024 6:25:15 PM UTC Continued 0416997 Entresto 24-26 mg tablet 1 TAB ORAL TWICE A DAY Prescri bed: July 09, 2024 6:25:15 PM UT [id number] on July 09, 2024 6:25:15 PM UTC Continued 894912 atorvastatin 80 mg tablet 1 TAB ORAL AT BEDTIME Prescri bed: July 09, 2024 6:25:15 PM UT [id number] on July 09, 2024 6:25:15 PM UTC Continued 493949 tamsulosin 0.4 mg capsule 1 CAP ORAL AT BEDTIME Prescri bed: July 09, 2024 6:25:15 PM UT [id number] on July 09, 2024 6:25:15 PM UTC Continued 647495 spironolactone 25 mg tablet 1 TAB ORAL ONCE DAILY Prescri bed: July 09, 2024 6:25:15 PM UT [id number] on July 09, 2024 6:25:15 PM UT Continued 448891 aspirin 81 mg tablet 1 TAB ORAL ONCE DAILY Prescri bed: July 09, 2024 6:25:15 PM UT [id number] on July 09, 2024 6:25:15 PM UT Continued 379381 metoprolol tartrate 50 mg tablet 1 TAB ORAL TWICE A DAY Prescri bed: July 09, 2024 6:25:15 PM UT [id number] on July 09, 2024 6:25:15 PM UT Continued 460432 levocetirizine 5 mg tablet 1 TAB ORAL AT BEDTIME Prescri bed: July 09, 2024 6:25:15 PM UT [id number] on July 09, 2024 6:25:15 PM UT Continued 2916117 duloxetine 60 mg Capsule, Delayed Release Sprinkle 1 CAP ORAL ONCE DAILY Prescri bed: July 09, 2024 6:25:15 PM UT [id number] on July 09, 2024 6:25:15 PM UTC Continued 496955 famotidine 20 mg tablet 1 TAB ORAL ONCE DAILY Prescri bed: July 09, 2024 6:25:15 PM UT [id number] on July 09, 2024 6:25:15 PM UTC Continued Trelegy Ellipta inhalation unknown 1 INH ONCE DAILY Prescri bed: July 09, 2024 6:25:15 PM UT [id number] on July 09, 2024 6:25:15 PM UT Continued 248182 memantine 5 mg tablet 1 TAB ORAL ONCE DAILY Prescri bed: July 09, 2024 6:25:15 PM [facility] [id number] on July 09, 2024 6:25:15 PM [facility] PATIENT OPEN ORDERS Code System Description Frequency Occurrences Priority Start Date Ordering Physician Updated By Patient open order informati on is not available. SCHEDULED PROCEDURES Code System Description Status Scheduled Date Upd ated By Patient scheduled procedure information is not available. MEDICATIONS HOME MEDICATIONS Status RXNORM NDC Medication Dose Route Frequency Dates Comments Reported By Updated By Active Leonel chirinos Trelegy Ellipta inhalation unknown 1.0 INH DAILY Last Dose: [id number] on July 09, 2024 6:24:49 PM UT Active Leonel chirinos fluticasone propionate nasal unknown 1.0 SPR DAILY Last Dose: [id number] on July 09, 2024 6:24:36 PM [facility] Active 933097 53446 11142 0 lansoprazole 30 mg capsule,stefano yed release (e.c.) 1.0 CAP ORAL DAILY Last Dose: [id number] on July 08, 2024 9:28:08 PM [facility] Active 3313001 67523 90127 8 Eliquis 5 mg tablet 1.0 TAB ORAL BID Last Dose: [id number] on July 09, 2024 2:14:59 AM [facility] Active 067688 37297 85928 2 famotidine 20 mg tablet 1.0 TAB ORAL DAILY Last Dose: [id number] on July 08, 2024 9:28:08 PM [facility] Active 578885 08096 01487 1 trazodone 100 mg tablet 1.0 TAB ORAL BEDTIME Last Dose: [id number] on July 08, 2024 9:28:08 PM [facility] Active 53834 25416 1 levocetirizi ne 5 mg tablet 1.0 TAB ORAL BEDTIME Last Dose: [id number] on July 08, 2024 9:28:09 PM [facility] Active 816860 81109 01919 8 tamsulosin 0.4 mg capsule 1.0 CAP ORAL BEDTIME Last Dose: [id number] on July 08, 2024 9:28:09 PM [facility] Active 132828 66541 66171 2 metoprolol tartrate 50 mg tablet 1.0 TAB ORAL BID Last Dose: [id number] on July 08, 2024 9:28:09 PM [facility] Active 8562788 42132 00007 0 duloxetine 60 mg Capsule, Delayed Release Sprinkle 1.0 CAP ORAL DAILY Last Dose: [id number] on July 08, 2024 9:28:09 PM [facility] Active 931005 00094 49007 2 aspirin 81 mg tablet 1.0 TAB ORAL DAILY Last Dose: [id number] on July 08, 2024 9:28:09 PM [facility] Active 432597 69389 57309 1 atorvastatin 80 mg tablet 1.0 TAB ORAL BEDTIME Last Dose: [id number] on July 08, 2024 9:28:09 PM [facility] Active 346035 72740 75178 0 Plavix 75 mg tablet 1.0 TAB ORAL DAILY Last Dose: [id number] on July 09, 2024 2:14:59 AM [facility] Active 3183027 82470 99934 0 Entresto 24-26 mg tablet 1.0 TAB ORAL BID Last Dose: [id number] on July 08, 2024 9:28:10 PM [facility] Active 6651213 65926 60108 9 Jardiance 10 mg tablet 1.0 TAB ORAL DAILY Last Dose: [id number] on July 09, 2024 2:14:59 AM [facility] Active 626028 14305 08957 0 spironolacto ne 25 mg tablet 1.0 TAB ORAL DAILY Last Dose: [id number] on July 08, 2024 9:28:10 PM [facility] Active 127410 53288 85117 0 memantine 5 mg tablet 1.0 TAB ORAL DAILY Last Dose: [id number] on July 08, 2024 9:28:10 PM [facility] DISCHARGE MEDICATIONS Status RXNORM [facility] Medication Dose Route Frequency Dates Comments Physician Updated By Iva chirinos Free Text Med fluticasone propionate nasal unknown 1.0 SPR ONCE DAILY Prescr ibed: July 09, 2024 6:25:1 5 PM [facility] MOLLY GAMBOA [id number] on July 09, 2024 6:25:15 PM [facility] Continue taran 136515 3137 0683 000 lansoprazol e 30 mg capsule,del ayed release (e.c.) 1.0 CAP ORAL ONCE DAILY Prescr ibed: July 09, 2024 6:25:1 5 PM UTC BARNES WALRENNYAbdirahman GAMBOA [id number] on July 09, 2024 6:25:15 PM UTC Continue d 819987 8604 0064 801 trazodone 100 mg tablet 1.0 TAB ORAL AT BEDTIME Prescr ibed: July 09, 2024 6:25:1 5 PM UTC [facility]ARNES WALRENNYAbdirahman GAMBOA [id number] on July 09, 2024 6:25:15 PM UTC Continue d 9645242 7211 8065 920 Entresto 24-26 mg tablet 1.0 TAB ORAL TWICE A DAY Prescr ibed: July 09, 2024 6:25:1 5 PM UTC BARNESTaran GAMBOA [id number] on July 09, 2024 6:25:15 PM UTC Continue d 680951 6102 5094 311 atorvastati n 80 mg tablet 1.0 TAB ORAL AT BEDTIME Prescr ibed: July 09, 2024 6:25:1 5 PM UTC BARNES WALRENNYAbdirahman GAMBOA [id number] on July 09, 2024 6:25:15 PM UTC Continue d [id number] 1636 6016 088 tamsulosin 0.4 mg capsule 1.0 CAP ORAL AT BEDTIME Prescr ibed: July 09, 2024 6:25:[address] [facility] BARTONRENNYAbdirahman GAMBOA [id number] on July 09, 2024 6:25:15 PM UTC Continue d [id number] 5009 9010 320 spironolact one 25 mg tablet 1.0 TAB ORAL ONCE DAILY Prescr ibed: July 09, 2024 6:25:1 5 PM [facility] GAMBOA [id number] on July 09, 2024 6:25:15 PM UTC Continue d 317953 8516 0004 002 aspirin 81 mg tablet 1.0 TAB ORAL ONCE DAILY Prescr ibed: July 09, 2024 6:25:1 5 PM UTC BARNESDAVID GAMBOA [id number] on July 09, 2024 6:25:15 PM UTC Continue d [id number] 8457 4047 752 metoprolol tartrate 50 mg tablet 1.0 TAB ORAL TWICE A DAY Prescr ibed: July 09, 2024 6:25:1 5 PM [facility] MOLLY GAMBOA [id number] on July 09, 2024 6:25:15 PM UTC Continue d 035710 2410 0032 131 levocetiriz ine 5 mg tablet 1.0 TAB ORAL AT BEDTIME Prescr ibed: July 09, 2024 6:25:1 5 PM [facility] MOLLY GAMBOA [id number] on July 09, 2024 6:25:15 PM UTC Continue d [id number] 4733 5061 930 duloxetine 60 mg Capsule, Delayed Release Sprinkle 1.0 CAP ORAL ONCE DAILY Prescr ibed: July 09, 2024 6:25:1 5 PM [facility] MOLLY GAMBOA [id number] on July 09, 2024 6:25:15 PM UTC Continue d [id number] 9975 0104 402 famotidine 20 mg tablet 1.0 TAB ORAL ONCE DAILY Prescr ibed: July 09, 2024 6:25:1 5 PM [facility] MOLLY GAMBOA [id number] on July 09, 2024 6:25:15 PM UTC Continue d Free Text Med Trelegy Ellipta inhalation unknown 1.0 INH ONCE DAILY Prescr ibed: July 09, 2024 6:25:1 5 PM [facility] MOLLY GAMBOA [id number] on July 09, 2024 6:25:15 PM UTC Continue d 489193 6524 5089 560 memantine 5 mg tablet 1.0 TAB ORAL ONCE DAILY Prescr ibed: July 09, 2024 6:25:1 5 PM UT MOLLY GAMBOA [id number] on July 09, 2024 6:25:15 PM UT INPATIENT MEDICATIONS Status RXNORM [facility] Medication Dose Route Frequency Rat e Quantity Dates Comments Physician Updated By Ann inued [phone] 4036 009 potassium chloride (K-DUR) 20 MEQ TBCR 20.0 MEQ ORAL ONE TIME ONLY (SCHEDULED DOSE) Start: July 08, 2024 8:18:0 0 PM UT End: July 08, 2024 8:18:0 0 PM [facility] on July 08, 2024 8:17:00 PM UT Discont inued 5665 3640 164 NOZIN 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 0 ML INTRAV ENOUS CONT 83.0 ML/HR Start: July 08, 2024 8:50:0 0 PM UTC End: July 09, 2024 5:52:2 3 PM UTC ELVIA MAYUR Chung [id number] on July 09, 2024 5:52:00 PM UTC Discont inued [id number] 5613 000 ondansetron (ZOFRAN) INJ 4 MG/2 ML SOLN 4.0 MG INTRAV ENOUS EVERY SIX HOURS NEEDED Start: July 08, 2024 8:50:0 0 PM UTC End: July 09, 2024 6:20:0 0 PM UTC ELVIA MAYUR Chung [id number] on July 10, 2024 4:25:00 AM UTC Discont inued [id number] 7473 1092 825 promethazin e (PHENERGAN) 25 MG/ML SOLN 12.5 MG INTRAV ENOUS EVERY SIX HOURS NEEDED Start: July 08, 2024 8:50:0 0 PM UTC End: July 09, 2024 6:20:0 0 PM UTC ELVIANATHAN MERCHANT Sehldon [id number] on July 10, 2024 4:25:00 AM UTC Discont inued [id number] 7020 101 DUONEB 0.5-2.5 MG/3 ML SOLN 3.0 ML INHALE D EVERY SIX HOURS NEEDED (RESPIRATO RY) Start: July 08, 2024 8:50:0 0 PM UTC End: July 09, 2024 6:20:0 0 PM UTC ELVIA Chung [id number] on July 10, 2024 4:25:00 AM UTC Discont inued [id number] 198 MIRALAX PACKET 17 GM PACK 17.0 GM ORAL ONCE DAILY NEEDED Start: July 08, 2024 8:50:0 0 PM UTC End: July 09, 2024 6:20:0 0 PM UTC ELVIA Chung [id number] on July 10, 2024 4:25:00 AM UTC Discont inued [phone] acetaminoph en (TYLENOL) 500 MG TABS 1000. 0 MG ORAL EVERY SIX HOURS NEEDED Start: July 08, 2024 8:52:0 0 PM UTC End: July 09, 2024 6:20:0 0 PM UTC ELVIA Chung [id number] on July 10, 2024 4:25:00 AM UTC Discont inued [id number] 8015 745 melatonin 5 MG TABS 5.0 MG ORAL AT BEDTIME NEEDED Start: July 09, 2024 1:00:0 0 AM UTC End: July 09, 2024 6:20:0 0 PM UTC ELVIA Chung [id number] on July 10, 2024 4:25:00 AM UTC Discont inued [id number] 6055 262 oxyCODONE (ROXICODONE ) 5 MG TABS 5.0 MG ORAL EVERY FOUR HOURS NEEDED Start: July 08, 2024 8:52:0 0 PM UTC End: July 09, 2024 6:20:0 0 PM UTC ELVIA Chung [id number] on July 10, 2024 4:25:00 AM UTC Discont inued [id number] 9179 8065 920 ENTRESTO 24-26 MG TABS 1.0 TAB ORAL TWICE A DAY Start: July 09, 2024 1:00:0 0 PM UTC End: July 09, 2024 6:20:0 0 PM UTC ELVIA Chung [id number] on July 10, 2024 4:25:00 AM UTC Discont inued Free Text Med trazodone 100 mg tablet 1.0 TAB ORAL AT BEDTIME Start: July 10, 2024 1:00:0 0 AM UTC End: July 09, 2024 6:20:0 0 PM UTC ELVIA MERCHANT Sheldon RESENDIZ on July 09, 2024 2:23:00 AM UTC Discont inued Free Text Med fluticasone propionate nasal unknown 1.0 SPR NASAL ONCE DAILY Start: July 09, 2024 1:00:0 0 PM UTC End: July 09, 2024 1:00:0 0 PM UTC ELVIA Chung MARTÍN on July 09, 2024 2:21:00 AM UTC Discont inued Free Text Med Trelegy Ellipta inhalation unknown 1.0 INH INHALE D ONCE DAILY Start: July 09, 2024 1:00:0 0 PM UTC End: July 09, 2024 1:00:0 0 PM UTC ELVIA Chung MARTÍN on July 09, 2024 2:24:00 AM UTC Discont inued Free Text Med memantine 5 mg tablet 1.0 TAB ORAL ONCE DAILY Start: July 09, 2024 1:00:0 0 PM UTC End: July 09, 2024 1:00:0 0 PM UTC ELVIA Chung MARTÍN on July 09, 2024 2:23:00 AM UTC Discont inued [id number] 7759 4043 752 metoprolol tartrat (LOPRESSOR) 50 MG TABS 50.0 MG ORAL TWICE A DAY Start: July 09, 2024 1:00:0 0 PM UTC End: July 09, 2024 6:20:0 0 PM UTC ELVIA Chung [id number] on July 10, 2024 4:25:00 AM UTC Discont inued [id number] 7323 9010 320 spironolact one (ALDACTONE) 25 MG TABS 25.0 MG ORAL ONCE DAILY Start: July 09, 2024 1:00:0 0 PM UTC End: July 09, 2024 6:20:0 0 PM UTC ELVIA Chung [id number] on July 10, 2024 4:25:00 AM UTC Discont inued 153312 [id number] 6006 088 tamsulosin (FLOMAX) 0.4 MG CAPS 0.4 MG ORAL AT BEDTIME Start: July 10, 2024 1:00:0 0 AM UTC End: July 09, 2024 6:20:0 0 PM UTC ELVIA Chung [id number] on July 10, 2024 4:25:00 AM UTC Discont inued Free Text Med duloxetine 60 mg Capsule, Delayed Release Sprinkle 1.0 CAP ORAL ONCE DAILY Start: July 09, 2024 1:00:0 0 PM UTC End: July 09, 2024 1:00:0 0 PM UTC ELVIA RESENDIZ on July 09, 2024 2:21:00 AM UTC Discont inued [id number] 5541 1039 708 famotidine (PEPCID) 20 MG TABS 20.0 MG ORAL ONCE DAILY Start: July 09, 2024 1:00:0 0 PM UTC End: July 09, 2024 6:20:0 0 PM UTC ELVIA Chung [id number] on July 10, 2024 4:25:00 AM UTC Discont inued Free Text Med lansoprazol e 30 mg capsule,del ayed release (e.c.) 1.0 CAP ORAL ONCE DAILY Start: July 09, 2024 1:00:0 0 PM UTC End: July 09, 2024 1:00:0 0 PM UTC ELVIA RESENDIZ on July 09, 2024 2:22:00 AM UTC Discont inued Free Text Med levocetiriz ine 5 mg tablet 1.0 TAB ORAL AT BEDTIME Start: July 10, 2024 1:00:0 0 AM UTC End: July 09, 2024 6:20:0 0 PM UTC ELVIA RESENDIZ on July 09, 2024 2:23:00 AM UTC Discont inued Free Text Med aspirin 81 mg tablet 1.0 TAB ORAL ONCE DAILY Start: July 09, 2024 1:00:0 0 PM UTC End: July 09, 2024 1:00:0 0 PM UTC ELVIA RESENDIZ on July 09, 2024 2:20:00 AM UTC Discont inued Free Text Med atorvastati n 80 mg tablet 1.0 TAB ORAL AT BEDTIME Start: July 10, 2024 1:00:0 0 AM UTC End: July 09, 2024 6:20:0 0 PM UTC ELVIA Chung KWAID on July 09, 2024 2:20:00 AM UTC Discont inued [phone] baby aspirin (DEVORAH) 81 MG CHEW 81.0 MG ORAL ONCE DAILY Start: July 09, 2024 1:00:0 0 PM UTC End: July 09, 2024 6:20:0 0 PM UTC ELVIA Chung [id number] on July 10, 2024 4:25:00 AM UTC Discont inued 759568 6111 9075 920 atorvastati n (LIPITOR) 20 MG TABS 80.0 MG ORAL AT BEDTIME Start: July 09, 2024 6:39:4 3 PM UTC End: July 09, 2024 6:20:0 0 PM UTC ELVIA Chung [id number] on July 10, 2024 4:25:00 AM UTC Discont inued 029157 1629 5038 281 DULoxetine (CYMBALTA) 30 MG CPEP 60.0 MG ORAL ONCE DAILY Start: July 09, 2024 1:00:0 0 PM UTC End: July 09, 2024 6:20:0 0 PM UTC ELVIA Chung [id number] on July 10, 2024 4:25:00 AM UTC Discont inued [id number] 9970 5082 901 fluticasone nasal (FLONASE) 50 MCG/ACT SUSP 1.0 SPR NASAL ONCE DAILY Start: July 09, 2024 1:00:0 0 PM UTC End: July 09, 2024 6:20:0 0 PM UTC ELVIA Chung [id number] on July 10, 2024 4:25:00 AM UTC Discont inued 279439 0656 4081 309 pantoprazol e (PROTONIX) 40 MG TBEC 40.0 MG ORAL ONCE DAILY Start: July 09, 2024 1:00:0 0 PM UTC End: July 09, 2024 6:20:0 0 PM UTC ELVIA Chung [id number] on July 10, 2024 4:25:00 AM UTC Discont inued 6689445 7996 8866 971 cetirizine (ZyrTEC) 10 MG TABS 10.0 MG ORAL AT BEDTIME Start: July 09, 2024 6:39:4 3 PM UTC End: July 09, 2024 6:20:0 0 PM UTC ELVIA Chung [id number] on July 10, 2024 4:25:00 AM UTC Discont inued 169679 8415 6320 563 memantine (NAMENDA) 5 MG TABS 5.0 MG ORAL ONCE DAILY Start: July 09, 2024 1:00:0 0 PM UTC End: July 09, 2024 6:20:0 0 PM UTC ELVIA Chung [id number] on July 10, 2024 4:25:00 AM UTC Discont inued 407048 5204 2080 501 traZODone (DESYREL) 50 MG TABS 100.0 MG ORAL AT BEDTIME Start: July 09, 2024 6:39:4 3 PM UTC End: July 09, 2024 6:20:0 0 PM UTC EVLIA Chung [id number] on July 10, 2024 4:25:00 AM UTC Discont inued [id number] 7974 3088 714 TRELEGY ELLIPTA 100-62.5-25 MCG/ACT AEPB 1.0 INH INHALE D ONCE DAILY (RESPIRATO RY) Start: July 09, 2024 12:00: 00 PM UTC End: July 09, 2024 6:20:0 0 PM UTC ELVIA Chung [email or web address] on July 10, 2024 4:25:00 AM UTC Discont inued [id number] 5042 4036 009 potassium chloride (K-DUR) 20 MEQ TBCR 20.0 MEQ ORAL GIVE ONE DOSE NOW Start: July 09, 2024 5:54:0 0 PM UTC End: July 09, 2024 6:12:4 7 PM UTC MOLLY BLANCA [id number] on July 09, 2024 6:12:00 PM [place] SOCIAL HISTORY SOCIAL HISTORY SNOMED-CT Social History Element Description Effective Dates Offered Cessation Comment UpdatedBy [id number] Current Tobacco smoking status Current Every Day Smoker [id number] on July 08, 2024 6:32:33 PM UT [id number] Historical Tobacco smoking status Unknown If Ever Smoked [id number] on June 14, 2024 11:15:31 PM [place] SOCIAL HISTORY - Gender Sex: Male SOCIAL HISTORY - Status : status i nformation is not available Intention in Next Year: intention information is not available SOCIAL HISTORY - Sexual Behavior Sexual Orientation Gender Identity SNOMED-CT Description SNO MED -CT Description Activity Level No of Partners Partner Type UpdatedBy Information is not available VITAL SIGNS PATIENT VITAL SIGNS This section displays the mo st recent value for each vital sign as of July 10, 2024 8:44:26 PM [place] Loinc Code Vital Sign Activity Date Result Updated By 8302-2 Body height July 08, 2024 10:55:18 PM UTC 165.1 cm (65.0 in) [id number] on July 08, 2024 10:55:[place] [address]-6 Body mass index (BMI ) [Ratio] July 08, 2024 10:55:18 PM UTC 24.947 kg/m2 [id number] on July 08, 2024 10:55:18 PM UT 3140-1 Body Surface Area Derived From Formula July 08, 2024 10:55:18 PM UTC 1.75 m2 [id number] on July 08, 2024 10:55:18 PM UT 8310-5 Body temperature July 09, 2024 3:37:00 PM UTC 98.0 [degF] [id number] on July 09, 2024 3:37:[place] [address]-9 Body weight Measured July 08 10:55:18 PM UTC 68.0 kg (150.0 lb) [id number] on July 08, 2024 10:55:18 PM UTC 8462-4 Diastolic blood pressure July 09, 2024 3:37:00 PM UTC 62.0 mm[Hg] [id number] on July 09, 2024 3:37:56 PM UTC 8867-4 Heart rate July 09, 2024 3:37:00 PM UTC 89 /min [id number] on July 09, 2024 3:37:56 PM UTC 8478-0 Mean blood pressure July 09, 2024 3:37:00 PM UTC 89.0 mm[Hg] [id number] on July 09, 2024 3:37:[place] [address]-0 Oxygen saturation in Arterial blood by Pulse oximetry July 09, 2024 3:37:00 PM UTC 97.0 % [id number] on July 09, 2024 3:37:56 PM [facility] 9279-1 Respiratory rate July 09, 2024 3:37:00 PM UT 20 /min [id number] on July 09, 2024 3:37:56 PM [facility] 8480-6 Systolic blood pressure July 09, 2024 3:37:00 PM UT 134.0 mm[Hg] [id number] on July 09, 2024 3:37:56 PM [facility] 81453-3 Vital capacity [Volume] Respiratory system by Spirometry July 09, 2024 2:00:00 AM [facility] 2500.0 ml [id number] on July 09, 2024 3:19:38 AM [facility] PEDIATRIC GROWTH CHART - VITAL SIGNS This section displays Head C ircumference Percentile, Weight for Length Percentile and BMI Percentile Loinc Code Pediatric Measure Age (Months) Result Updat ed By No Pediatric Growth Chart Pe rcentile Information Available. GOALS PATIENT GOALS Goal Assigned Date Updated By DEBBIE DUBOIS REMAINS FREE FROM COMPLICATIONS FOR MED-SURG ADMIT DURING THE CARE PERIOD July 08, 2024 [id number] on July 09, 2024 3:10 :44 AM [facility] DEBBIE SILVINO REMAINS FREE OF COMPLICATIONS RELATED TO IV THERAPY DURING THE CARE PERIOD July 08, 2024 [id number] on July 09, 2024 3:10 :44 AM [facility] HEALTH CONCERNS Problems Concern Status Health Concern problem infor mation not available. Smoking Status Status Years Used Consumed packs p er day Health Concern smoking histo ry information not available. Family History Concern Status Health Concern family histor y information not available. 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 Code System Diagnosis Onset Date Diagnosis information is not available. ABSTRACT DIAGNOSES Code System Diagnosis Updated By R31.0 ICD10 GROSS HEMATURIA [id number] on 2024 2:44:18 PM [place] R31.0 ICD10 GROSS HEMATURIA [id number] on 2024 2:44:18 PM UTC N40.1 ICD10 BENIGN PROSTATIC HYPERPLASIA WITH LOWER URINARY TRACT SYMPTOMS [id number] on July 10, 2024 2:44:18 PM UTC R33.8 ICD10 OTHER RETENTION OF URINE FGE 9811 on July 10, 2024 2:44:18 PM UTC I50.9 ICD10 HEART FAILURE, UNSPECIFIED F [id number] on July 10, 2024 2:44:18 PM UTC I48.91 ICD10 UNSPECIFIED ATRIAL FIBRILLAT ION [id number] on July 10, 2024 2:44:18 PM UTC J44.9 ICD10 CHRONIC OBSTRUCT RENETTA PULMONARY DISEASE, UNSPECIFIED [id number] on July 10, 2024 2:44:18 PM UTC E78.00 ICD10 PURE HYPERCHOLESTEROLEMIA, U NSPECIFIED [id number] on July 10, 2024 2:44:18 PM UTC Z95.5 ICD10 PRESENCE OF JOSÉ NARY ANGIOPLASTY IMPLANT AND GRAFT [id number] on July 10, 2024 2:44:18 PM UTC Z79.01 ICD10 RN INTERN (CURRE NT) USE OF ANTICOAGULANTS [id number] on July 10, 2024 2:44:18 PM UT Z79.899 ICD10 OTHER HALF-WAY (CURRENT) DR UG THERAPY [id number] on July 10, 2024 2:44:18 PM UTC Z79.82 ICD10 RN INTERN (CURRENT) USE OF A SPIRIN [id number] on July 10, 2024 2:44:18 PM UTC Z79.51 ICD10 HALF-WAY (CURRE NT) USE OF INHALED STEROIDS [id number] on July 10, 2024 2:44:18 PM UT Z79.02 ICD10 RN INTERN (CURRE NT) USE OF ANTITHROMBOTICS/ANTIPLATELETS [id number] on July 10, 2024 2:44:18 PM UT E87.6 ICD10 HYPOKALEMIA [id number] on July 10, 2024 2:44:18 PM UT F03.90 ICD10 UNSPECIFIED JESUSITA NTIA, UNSPECIFIED SEVERITY, WITHOUT BEHAVIORAL DISTURBANCE, PSYCHOTIC DISTURBANCE, MOOD DISTURBANCE, AND ANXIETY [id number] on July 10, 2024 2:44:18 PM UT I25.5 ICD10 ISCHEMIC CARDIOMYOPATHY [id number] on July 10, 2024 2:44:18 PM [place] CARE TEAM Care Punchboard Inserter Role GILBERTO CUNNINGHAM Primary Care MAYUR GAN Admitting MAYUR CORBIN Consulting MAYUR GAN Primary Attending GILBERTO CUNNINGHAM Referring HOSPITAL DISCHARGE INSTRUCTION DISCHARGE INSTRUCTION Encounter [id number] Admit Date July 09, 2024 3:01:00 PM [facility] Discharge Date July 09, 2024 6:20:00 PM [facility] PATIENT EDUCATION SUMMARY Patient/Visit Information: Patient Name: DEBBIE DUBOIS Diag: Attending Caregiver: ELVIA Chung Discharge Instruction Sheets Provided: BEFAST-Stroke Warning Signs COVID-19 CDC-EN Discharge Information Fall Prevention in Hospitals and in the Home [facility] Pain and Responsible Opioid (Pain Medication) Management Hematuria, Adult Hypokalemia KYNECT- HELP Medication Side Effects Suicide - Managing your Feelings Patient Instructions: Followup Appointments/Instructions: HISTORY AND PHYSICAL NOTE HISTORY AND PHYSICAL NOTE Note Title Admission History an d Physical Date Of Service July 09, 2024 2:17:07 AM [facility] Created By [id number] on July 09 2:17:07 AM [facility] Signed By [id number] on July 09 2:25:33 AM [facility] Chief Complaint Hematuria, urinary retention History of Present Illness Debbie Dubois is an 83 year old male with a history of AAA, CVA, PAF, HTN, AAA s/p repair, and BPH with a chronic kidd catheter who was sent to the ED from his urologist's office with gross hematuria. He is on anticoagulation and DAPT, reports yesterday had tea colored urine and then woke up today with lawrence hematuria and clots. He reports suprapubic pain. He has had a kidd catheter since March due to BPH, and has plans for TURP in July. He was sent to the ED, had a 3 way kidd placed with urology recommendations for CBI. Additional history obtained from daughter at bedside. Past Medical History Abdominal aortic aneurysm Congestive heart failure Atrial fibrillation Chronic obstructive pulmonary disease Hypercholesterolemia Past Surgical History Cardiopulmonary bypass operation Hernia repair Placement of stent in coronary artery Amputation above-knee Social History tobacco use Current Every Day Smoker, 0 yrs marital status Single Allergies No Known Allergies Home Medications aspirin 81 mg tablet Dose: 1 TAB BY MOUTH ONCE DAILY atorvastatin 80 mg tablet Dose: 1 TAB BY MOUTH AT BEDTIME duloxetine 60 mg Capsule, Delayed Release Sprinkle Dose: 1 CAP BY MOUTH ONCE DAILY Eliquis 5 mg tablet Dose: 1 TAB BY MOUTH TWICE A DAY Entresto 24-26 mg tablet Dose: 1 TAB BY MOUTH TWICE A DAY famotidine 20 mg tablet Dose: 1 TAB BY MOUTH ONCE DAILY fluticasone propionate nasal unknown Dose: 1 SPR ONCE DAILY Jardiance 10 mg tablet Dose: 1 TAB BY MOUTH ONCE DAILY lansoprazole 30 mg capsule,delayed release (e.c.) Dose: 1 CAP BY MOUTH ONCE DAILY levocetirizine 5 mg tablet Dose: 1 TAB BY MOUTH AT BEDTIME memantine 5 mg tablet Dose: 1 TAB BY MOUTH ONCE DAILY metoprolol tartrate 50 mg tablet Dose: 1 TAB BY MOUTH TWICE A DAY Plavix 75 mg tablet Dose: 1 TAB BY MOUTH ONCE DAILY spironolactone 25 mg tablet Dose: 1 TAB BY MOUTH ONCE DAILY tamsulosin 0.4 mg capsule Dose: 1 CAP BY MOUTH AT BEDTIME trazodone 100 mg tablet Dose: 1 TAB BY MOUTH AT BEDTIME Trelegy Ellipta inhalation unknown Dose: 1 INH ONCE DAILY Vital Signs 2104 HR 77 RR 22 O2Sat 99 1952 T 98 (L) HR 56 RR 17 BP 134 / 77 O2Sat 97 1806 T 98.6 BP 149 / 63 Physical Exam Narrative General: alert and oriented, no acute distress Neuro: awake, alert, no apparent focal deficits Eye: normal conjunctiva HENT: normocephalic, atraumatic Neck: no JVD Lungs: symmetrical chest rise, non-labored breathing Heart: normal rate, normal rhythm Abdomen: nondistended, kidd in place with lawrence hematuria MSK: normal range of motion and strength Skin: warm, dry, no rashes or lesions Psych: cooperative, normal mood and affect Lab Results 1546 Chemistry NA 139 K 3.2 (L) CHLORIDE 102 CO2 26.1 AGAP 14.1 GLUC 72 BUN 13 CREAT 1.0 GFR 76 OSMO ZULEYMA 288 TP 6.4 ALB 2.9 (L) GLOB 3.5 ALB/GLOB 0.8 CALCIUM 9.0 BILI TOT 0.90 AST 11 ALT 19 ALP 127 (H) 1546 Hematology WBC 9.3 RBCS 4.4 (L) HGB 13.4 (L) HCT 42.0 MCV 95.2 MCH 30.4 MCHC 31.9 (L) RDW 17.5 (H) PLT S 192 MPV 10.1 (H) NEUT% 70.4 (H) LYMPH% 20.5 MONO% 8.0 EOS% 0.4 (L) BASO% 0.1 (L) IG% 0.6 NRBC% 0.0 NEUT# 6.5 (H) LYMPH# 1.9 MONO# 0.7 EOS# 0.0 BASO# 0.0 IG# 0.06 NRBC# 0.00 MANDIFF? No 1546 Coagulation PT 11.6 (H) PTT 28.8 INR 1.1 (H) Procedures and Surgeries None Assessment/Plan Lawrence hematuria with clots BPH with chronic kidd catheter - start CBI - hold anticoagulation and DAPT - urology consulted - discussed w/ ED physician, decision made to admit for further evaluation Hypokalemia - replace and recheck CMP in AM CVA - DAPT held due to ongoing blood loss Dementia, continue home meds DVT ppx: SCDs I confirmed that the patient's Advance Care Plan is present, code status is documented, or surrogate decision maker is listed in the patients medical record. I have utilized all available immediate resources to obtain, update, or review the patients current medications Active Medications LACTATED RINGERS 1000 ML IV Continuous 83 ML/HR acetaminophen (TYLENOL) 1000 MG PO Q6HPRN for MILD PAIN 1-3 PAIN SCALE, TEMP >100.4 aspirin 81 mg tablet 1 TAB PO DAILY atorvastatin 80 mg tablet 1 TAB PO BEDTIME duloxetine 60 mg Capsule, Delayed Release Sprinkle 1 CAP PO DAILY DUONEB 0.5-2.5 MG/3 ML 3 ML INHALED ION6YBAN for SHORTNESS OF BREATH ENTRESTO 24-26 MG 1 TAB PO BID famotidine (PEPCID) 20 MG PO DAILY fluticasone propionate nasal unknown 1 SPR NASAL DAILY lansoprazole 30 mg capsule,delayed release (e.c.) 1 CAP PO DAILY levocetirizine 5 mg tablet 1 TAB PO BEDTIME melatonin 5 MG PO BEDTIMEPRN for SLEEP memantine 5 mg tablet 1 TAB PO DAILY metoprolol tartrat (LOPRESSOR) 50 MG PO BID MIRALAX PACKET 17 GM PO DAILYPRN for CONSTIPATION NOZIN NASAL 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 POPSWAB 1 EA NASAL BID APPLY TO EACH NOSTRIL ondansetron (ZOFRAN) INJ 4 MG/2 ML 4 MG IV PUSH Q6HPRN for NAUSEA VOMITING oxyCODONE (ROXICODONE) 5 MG PO Q4HPRN for MODERATE PAIN 4-6 PAIN SCALE promethazine (PHENERGAN) 25 MG/ML 12.5 MG IV PUSH Q6HPRN for NAUSEA VOMITING IF REFRACTORY TO ZOFRAN sodium chloride 0.9% FLUSH 10 ML IV PUSH PRN for FLUSH IV LINE spironolactone (ALDACTONE) 25 MG PO DAILY tamsulosin (FLOMAX) 0.4 MG PO BEDTIME trazodone 100 mg tablet 1 TAB PO BEDTIME Trelegy Ellipta inhalation unknown 1 INH INHALED DAILY Current Code Status of Patient Full Code Electronically signed by ELVIA OLIVEROS on 2224 CONSULTATION NOTE CONSULTATION NOTE Note Title Consult History and Physical Date Of Service July 09, 2024 11:43:0 8 AM UTC Created By [id number] on July 09 11:43:08 AM UTC Signed By [id number] on July 09 11:45:48 AM UTC Chief Complaint Gross hematuria History of Present Illness Patient is an 83-year-old male, known to me, with history of chronic urinary retention and recurrent gross hematuria. He presents to to the ER with 1 day history of gross hematuria in his indwelling Kidd catheter. His current three-way Kidd catheter was placed in office 3 weeks ago over a wire. Patient is currently on DAPT. After obtaining cardiac clearance, the patient is tentatively scheduled for cystoscopy with bipolar plasmabutton TURP on 07/22/2024. Reason for Consultation Gross hematuria Past Medical History Abdominal aortic aneurysm Congestive heart failure Atrial fibrillation Chronic obstructive pulmonary disease Hypercholesterolemia Past Surgical History Cardiopulmonary bypass operation Hernia repair Placement of stent in coronary artery Amputation above-knee Social History tobacco use Current Every Day Smoker, 0 yrs marital status Single Allergies No Known Allergies Active Medications traZODone (DESYREL) 100 MG PO BEDTIME tamsulosin (FLOMAX) 0.4 MG PO BEDTIME cetirizine (ZyrTEC) 10 MG PO BEDTIME SUBSTITUTED FOR LEVOCETRIZINE 5 MG PO AT BEDTIME atorvastatin (LIPITOR) 80 MG PO BEDTIME spironolactone (ALDACTONE) 25 MG PO DAILY pantoprazole (PROTONIX) 40 MG PO DAILY LANSOPRAZOLE 30 MG CAPSULE metoprolol tartrat (LOPRESSOR) 50 MG PO BID memantine (NAMENDA) 5 MG PO DAILY fluticasone nasal (FLONASE) 50 MCG/ACT 1 SPR NASAL DAILY famotidine (PEPCID) 20 MG PO DAILY ENTRESTO 24-26 MG 1 TAB PO BID DULoxetine (CYMBALTA) 60 MG PO DAILY baby aspirin (DEVORAH) 81 MG PO DAILY TRELEGY ELLIPTA 100-62.5-25 MCG/ACT 1 INH INHALED RTDAILY NOZIN NASAL COUTURE DRESSMAKER POPSWAB 1 EA NASAL BID APPLY TO EACH NOSTRIL melatonin 5 MG PO BEDTIMEPRN for SLEEP oxyCODONE (ROXICODONE) 5 MG PO Q4HPRN for MODERATE PAIN 4-6 PAIN SCALE acetaminophen (TYLENOL) 1000 MG PO Q6HPRN for MILD PAIN 1-3 PAIN SCALE, TEMP >100.4 sodium chloride 0.9% FLUSH 10 ML IV PUSH PRN for FLUSH IV LINE promethazine (PHENERGAN) 25 MG/ML 12.5 MG IV PUSH Q6HPRN for NAUSEA VOMITING IF REFRACTORY TO ZOFRAN ondansetron (ZOFRAN) INJ 4 MG/2 ML 4 MG IV PUSH Q6HPRN for NAUSEA VOMITING MIRALAX PACKET 17 GM PO DAILYPRN for CONSTIPATION LACTATED RINGERS 1000 ML IV Continuous 83 ML/HR DUONEB 0.5-2.5 MG/3 ML 3 ML INHALED [id number] for SHORTNESS OF BREATH Review of Systems Blood in urine Vital Signs 0740 T 97.7 (L) HR 91 RR 20 BP 142 / 87 O2Sat 99 0356 T 98 (L) HR 57 RR 18 BP 143 / 85 O2Sat 100 Intake and Output previous current encounter day day cumulative Intake 1040 - 1040 Output 500 - 500 Balance 540 - 540 Physical Exam General Normal appearance, Awake, Alert, Oriented to person, Oriented to place, Oriented to time Abdomen Abdomen soft Lab Results 0514 Chemistry NA 141 K 3.5 (L) CHLORIDE 108 (H) CO2 24.8 AGAP 11.7 GLUC 67 (L) BUN 11 CREAT 0.8 GFR 89 OSMO ZULEYAM 291 TP 5.1 (L) ALB 2.3 (L) GLOB 2.8 ALB/GLOB 0.8 CALCIUM 8.2 (L) BILI TOT 0.70 AST 10 ALT 16 ALP 90 0514 Hematology WBC 7.0 RBCS 4.0 (L) HGB 12.5 (L) HCT 38.7 (L) MCV 95.8 MCH 30.9 MCHC 32.3 RDW 17.8 (H) PLT S 147 (L) MPV 10.6 (H) NEUT% 70.6 (H) LYMPH% 19.7 (L) MONO% 7.7 EOS% 1.3 BASO% 0.1 (L) IG% 0.6 NRBC% 0.0 NEUT# 4.9 (H) LYMPH# 1.4 MONO# 0.5 EOS# 0.1 BASO# 0.0 IG# 0.04 NRBC# 0.00 MANDIFF? No 1546 Chemistry NA 139 K 3.2 (L) CHLORIDE 102 CO2 26.1 AGAP 14.1 GLUC 72 BUN 13 CREAT 1.0 GFR 76 OSMO ZULEYMA 288 TP 6.4 ALB 2.9 (L) GLOB 3.5 ALB/GLOB 0.8 CALCIUM 9.0 BILI TOT 0.90 AST 11 ALT 19 ALP 127 (H) 1546 Hematology WBC 9.3 RBCS 4.4 (L) HGB 13.4 (L) HCT 42.0 MCV 95.2 MCH 30.4 MCHC 31.9 (L) RDW 17.5 (H) PLT S 192 MPV 10.1 (H) NEUT% 70.4 (H) LYMPH% 20.5 MONO% 8.0 EOS% 0.4 (L) BASO% 0.1 (L) IG% 0.6 NRBC% 0.0 NEUT# 6.5 (H) LYMPH# 1.9 MONO# 0.7 EOS# 0.0 BASO# 0.0 IG# 0.06 NRBC# 0.00 MANDIFF? No 1546 Coagulation PT 11.6 (H) PTT 28.8 INR 1.1 (H) Procedures and Surgeries None Assessment/Plan Gross hematuria an 83-year-old male with BPH and chronic urinary retention, currently with indwelling Kidd on DAPT Urine is clear yellow this morning on minimal CBI. We will titrate CBI to off and observe this morning. DAPT is currently being held. Potentially D/C home later today if urine remains clear to clear pink off CBI. 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 Role on Team Status Start Date End Date Update d By SHAQUILLE OLIVEROS Consulting normal July 09, 2024 11:22:26 AM [facility] July 09, 2024 6:20:00 PM [place] [id number] on July 09, 2024 11:22:26 AM [facility] ELVIA OLIVEROS Attending normal July 08, 2024 9:08:24 PM [facility] July 09, 2024 4:00:00 AM UTC [id number] on July 09, 2024 11:22:26 AM [facility] ELVIA OLIVEROS Admitting normal July 08, 2024 9:08:24 PM [facility] July 09, 2024 4:00:00 AM UTC [id number] on July 09, 2024 11:22:26 AM [facility] MARISA MACIAS Referring normal July 08, 2024 6:25:48 PM UT July 09, 2024 4:00:00 AM UTC [id number] on July 09, 2024 11:22:26 AM [facility] JEISON LECHUGA Attending normal July 08, 2024 6:25:48 PM UT July 08, 2024 9:08:24 PM UTC [id number] on July 09, 2024 11:22:26 AM [place] JEISON LECHUGA Admitting normal July 08, 2024 6:25:48 PM UT July 08, 2024 9:08:24 PM UTC [id number] on July 09, 2024 11:22:26 AM [facility] MARISA MACIAS PCP normal July 08, 2024 6:13:18 PM UT July 09, 2024 3:01:30 PM UTC [id number] on July 09, 2024 11:22:26 AM [facility]
[2024-07-26] VITALS (14 sets, daily range): BP systolic 123–149; BP diastolic 58–79; PULSE 56–98; RESP 14–37; TEMP 36.6–37.1; O2SAT 95–97; BMI 25.4; BMI 25.9
--- NOTE | 2024-07-26 20:07 | ECG_ITS ---
APPROVED REPORT Exam: Resting ECG HR:106 bpm ECG Measurements Heart Rate 106 AXES QRSd 94 QRS 3 QT 345 T 238 QTc 407 Conclusion ATRIAL FIBRILLATION WITH RAPID VENTRICULAR RESPONSE WITH ABERRANT CONDUCTION OR VENTRICULAR PREMATURE COMPLEXES ABNORMAL ECG UNCONFIRMED REPORT Electronically signed by : Sven Leon, 07/26/2024 23:03:42
--- OUTSIDE RECORDS SUMMARY | 2024-07-26 20:07 | XMS_ITS | Continuity of Care Document ---
Author Organization [facility] Address [address] [place] [address] Care Team Providers Care Pattern Maker Programer Name Role Phone SHERRY DOBSON Referring Provider Assessment No assessment recorded. Plan of Treatment Reminders Order Date Submit Date Provider Last Modified By Organization Details Last Modified Time Details Appointments None record ed. Lab None record ed. Referral None record ed. Procedures None record ed. Surgeries None record ed. Imaging None record ed. Medication Orders None record ed. Patient TargetsNo targets recorded. Patient InstructionsNo instructions recorded. Reason for Referral None Reported. Problems Name Problem SNOMED Code Status Onset Date Resolution Date Notes Provider Name and Address Organization Details Recorded Time Benign prostatic hyperplasi a with outflow obstructio n 580196829 Active 2024 [place], [address] [facility] & [place] 5 16:11:43 Retention of urine 859655323 Active 2024 [facility] [address] [facility] & [place] 5 16:11:47 Lawrence hematuria 296729571 Active 2024 [facility] [address] [facility] & [place] 5 17:37:13 Kidney disease 46252616 Active 2024 Sierra Chávez [facility], [facility] & [place] 5 11:03:47 Hyperchole sterolemia 99712623 Active 2024 Sierra [place], [place] [facility] [place] 5 11:03:56 Hypertensi ve disorder 99064581 Active 2024 Sierra Chávez null, [place] [facility] [place] 5 11:04:03 Chronic obstructiv e pulmonary disease 07592558 Active 2024 Sierra Chávez null, [place] [facility] [place] 5 11:04:09 Denture present 844060730 Active 2024 Sierra Chávez null, [place] [facility] [place] 5 11:04:20 Environmen gila allergy 113090933 Active 2024 Sierra Chávez [place], [place] [facility] [place] 5 11:04:29 Heart disease 63676206 Active 2024 Sierra Chávez [place], [place] [facility] [place] 5 11:04:37 Myocardial infarction 15653312 Active 2024 Sierra turner, [place] [facility] [place] 5 11:04:47 Lower urinary tract symptoms due to benign prostatic hypertroph y 3852794425813 1 Active 2024 MAYUR CORBIN MD [address], [place], [address] , [place] [facility] [place] & [place] 5 10:57:17 Problem Notes None recorded. Procedures Surgical History Date Name Laterality Status Provider Name and Address Organization Details Recorded Time 5 Cystoscopy-Mal e completed MAYRU CORBIN MD [address], [place], [address], [place] [facility] [place] & [place] 06/13/2024 17:35:45 5 Kidd Catheter Insertion completed Felisha Ulloa [place] [facility] [place] & [place] 06/13/2024 14:25:05 5 Cystoscopy-Mal e completed MAYUR CORBIN MD [address], [place], [address], [facility] & [place] 04/25/2024 10:56:51 5 TRUS completed MD [address], [place], [address], [facility] & [place] 04/25/2024 10:57:12 Imaging Results None recorded. Procedure Notes None recorded. Medical Equipment None Reported. Allergies No known drug allergies Medications Name Sig Start Date Stop Date Status Note LastModified by Organization Details LastModified Time nifedipine ER 30 mg tablet,exte nded release 24 hr active Not Available Not Available Not Available atorvastati n 80 mg tablet TAKE ONE TABLET BY MOUTH AT BEDTIME active Not Available Not Available No t Available atorvastati n 20 mg tablet active Not Available Not Available Not Available azithromyci n 250 mg tablet TAKE ONE TABLET BY MOUTH EVERY DAY FOR 2 DAYS active Not Available Not Available No t Available gabapentin 400 mg capsule active Not Available Not Available Not Available clopidogrel 75 mg tablet TAKE ONE TABLET BY MOUTH EVERY DAY active Not Available Not Available No t Available spironolact one 25 mg tablet TAKE ONE TABLET BY MOUTH EVERY DAY active Not Available Not Available No t Available potassium chloride ER 20 mEq tablet,exte nded release(par t/cryst) active Not Available Not Available Not Available famotidine 20 mg tablet active Not Available Not Available Not Available tamsulosin 0.4 mg capsule active Not Available Not Available Not Available trazodone 100 mg tablet active Not Available Not Available Not Available doxycycline monohydrate 100 mg capsule active Not Available Not Available Not Available oseltamivir 75 mg capsule active Not Available Not Available Not Available nystatin 100,000 unit/gram topical cream active Not Available Not Available Not Available lansoprazol e 30 mg capsule,del ayed release active Not Available Not Available Not Available metoprolol tartrate 50 mg tablet active Not Available Not Available No t Available gabapentin 100 mg capsule active Not Available Not Available Not Available fluticasone 100 mcg-salmete rol 50 mcg/dose blistr powdr for inhalation Inhale 1 puff twice a day by inhalatio n route. active Not Available Not Available No t Available levofloxaci n 500 mg tablet Take 1 tablet every 24 hours by oral route for 7 days. 2024 active Not Available Not Available Not Avai lable oxybutynin chloride 5 mg tablet active Not Available Not Available No t Available Bactrim DS 800 mg-160 mg tablet Take 1 tablet every 12 hours by oral route. active Not Available Not Available No t Available dutasteride 0.5 mg capsule Take 1 capsule every day by oral route for 90 days. active Not Available Not Available No t Available mirtazapine 7.5 mg tablet active Not Available Not Available Not Available ezetimibe 10 mg-simvasta tin 40 mg tablet active Not Available Not Available Not Available duloxetine 60 mg capsule,del ayed release active Not Available Not Available Not Available levocetiriz ine 5 mg tablet active Not Available Not Available Not Available Eliquis 5 mg tablet active Not Available Not Available No t Available Eliquis 2.5 mg tablet 04/18 completed Not Available Not Available Not Available Allergy Relief (fluticason e) 50 mcg/actuati on nasal spray,suspe nsion Assaria 1 spray every day by intranasa l route. active Not Available Not Available No t Available Trelegy Ellipta 100 mcg-62.5 mcg-25 mcg powder for inhalation active Not Available Not Available N ot Available Vitals None Recorded Social History None recorded. Functional Status Question Answer Note LastModified by Organizat ion Details LastModified Time Do you use any illicit or recreational drugs? No Information not available 04/17/2024 What is your level of alcohol consumption? None Information not available 04/17/2024 Mental Status None recorded. Family History Nothing Reported. Medical History No medical history recorded. Past Encounters Encounter ID Performer Location Encounter Start Date Encounter Closed Date Diagnosis/Indication Diagnosis SNOMED-CT Code Diagnosis ICD10 Code Diagnosis Note [id number] MAYUR CORBIN MD [facility]rology[facility] [place] [address] 05/16/2024 14:23:47 05/16/2024 16:25:31 Benign prostatic hyperplasia with outflow obstruction 169470651 N40.1 N13.8 I have instructed the patient to discontinu e oxybutynin immediatel y. We did not perform voiding trial today as this would likely be unsuccessf ul. He will continue tamsulosin and follow up next week for voiding trial with cystoscopy and prostate ultrasound . Retention of urine 24841 4002 R33.9 Patient successful ly completed voiding trial today and has declined further catheteriz ation. He will follow up in 6 weeks for PVR check. [id number] MAYUR CORBIN MD [facility] [place] [address] 06/13/2024 13:44:36 06/13/2024 14:21:15 Retention of urine 544198056 R33.9 will send urine for PCR [id number] MAYUR CORBIN MD [facility] [place] [address] 06/13/2024 16:21:44 06/13/2024 17:10:35 Lawrence hematuria 937639858 R31.0 Flexible cystoscopy performed in office today showed bleeding from the prostate but no active bleeding or formed blood clots within the bladder lumen. A new 18 Malagasy catheter was placed over guidewire with 10 cc of sterile water in the balloon. This was irrigated to clear yellow urine. Retention of urine 88282 4002 R33.9 Patient will continue catheteriz ation for now. He was tentativel y scheduled for Transureth ral resection of the prostate in the upcoming months pending cardiac clearance. Health Concerns Section Related Observation LastModified by Organization Detai ls LastModified Time None Recorded Concern Status LastModified by Organization Details LastModified Time None Recorded Payers Encounter Date Sequence Insurance Name Policy Number Policy Calderon Covered Member ID Calderon Member ID Guarantor Name 06/13/2024 1 [place] Ti Rodríguez [id number] Ti Rodríguez 06/13/2024 2 [place] [id number] Ti Rodríguez [id number] Ti Rodríguez Notes Date Note Type Note Provider Name and Address Organization Details Recorded Time 06/13/2024 text/html 06/13/24 83-year-old male presents as a work-in for gross hematuria. Kidd catheter was exchanged earlier today and initially drained clear, however, he returned with gross hematuria and clot passage. Attempts were made by nurse practitioner to replace the catheter which were unsuccessful.------ 0 05/16/24 CC: [id number]-male returns to clinic for follow up ER ([facility]) visit on 04/29/24 for increased abdominal discomfort and decrease urination, kidd catheter placed. Ti Rodríguez is an 83-year-old male who presents for a follow-up visit. The patient has been experiencing issues with urination and has had a catheter reinserted shortly after his last visit. He is currently on tamsulosin and another medication to shrink the prostate, but these medications are expected to take a long time to work. The patient is considering surgical options to alleviate his symptoms. His prostate was measured at 93 grams on ultrasound, which is significantly enlarged. The patient is on Eliquis, a blood thinner, and would need clearance from his heart doctor before any surgical procedure. The patient has a history of heart attack and brain bleeds, which led to the initiation of Eliquis. He has not been running any fevers. The patient reports that urination is extremely painful, and his catheter has been causing irritation and leakage. The patient has not seen a cryolite recovery operator in years but has been managed by Renea Pagan with Dr. Loo in [facility]. 04/25/24 87-vtnb-sfu-male present to clinic for voiding trial with cystoscopy and prostate ultrasound. Voiding trial was attempted today and patient began voiding after only 60 cc was placed in the bladder.He remains on tamsulosin and reports that he discontinued the oxybutynin as instructed at his 1st visit. 04/18/[id number]-bqon-rfk -male present to clinic as new patient for ER ([facility]) visit on 04/08/24 decrease urine volume but increase urinary frequency. Patient is currently on Eliquis in addition to tamsulosin and oxybutynin. PSA 2018 4.8, 2019 PSA 9.4.Patient has had a longstanding history of nocturia with decreased force of stream for several years. He was on tamsulosin prior to his ER visit on 04/09/2024. He was placed on oxybutynin for unclear reasons at that visit. He has been taking this medication up through today.Per family, the patient became confused a few days ago and pulled on the catheter and has had gross hematuria since that time. They deny any previous episodes of gross hematuria.Family history is negative for malignancies.Alan akins is a current smoker 5-7 cigarettes per day. 04/29/24 UA: blood trace, bacteria trace, mucus 3+04/25/24 TRUS volume 93.4 cc04/08/24 CT/w ([facility]) kidneys and ureters: multiple Bosniack 1 renal cystic lesions defined as homogeneous and fluid density (-9 to 20 HU), no septation or calcifications, having rangel smooth and thin, largest cyst measures 1.1cm, no hydronephrosis. Urinary bladder unremarkable Enlarge prostate 6.8x4.9x6.7cm Cr 0.90, GFR 81, Hgb 15.7, Hct 46.702 UA pH 6.0, SG >=1.030, Blood-trace, 4 Cr 1.15, GFR 64, Hgb 16.3, Hct 47.61595 PSA 9.4 MAYUR CORBIN MD [address], [place], [address], [place] [facility] [place] 06/13/2024 17:41:46 07/08/2024 text/html 07/08/2024 83 yowm comes into office for bladder irrigation r/t gross hematuria with blood clots. Reports started experiencing gross hematuria this morning. Pt is on chronic anticoagulation. Pt scheduled for TURP on 07/22/2024. 06/13/24 83-year-old male presents as a work-in for gross hematuria. Kidd catheter was exchanged earlier today and initially drained clear, however, he returned with gross hematuria and clot passage. Attempts were made by nurse practitioner to replace the catheter which were unsuccessful.------ 0 05/16/24 CC: 11-[id number]-ogl-male returns to clinic for follow up ER ([facility]) visit on 04/29/24 for increased abdominal discomfort and decrease urination, kidd catheter placed. Ti Rodríguez is an 83-year-old male who presents for a follow-up visit. The patient has been experiencing issues with urination and has had a catheter reinserted shortly after his last visit. He is currently on tamsulosin and another medication to shrink the prostate, but these medications are expected to take a long time to work. The patient is considering surgical options to alleviate his symptoms. His prostate was measured at 93 grams on ultrasound, which is significantly enlarged. The patient is on Eliquis, a blood thinner, and would need clearance from his heart doctor before any surgical procedure. The patient has a history of heart attack and brain bleeds, which led to the initiation of Eliquis. He has not been running any fevers. The patient reports that urination is extremely painful, and his catheter has been causing irritation and leakage. The patient has not seen a cryolite recovery operator in years but has been managed by Renea Pagan with Dr. Loo in [facility]. 04/25/24 33-gahy-ufe-male present to clinic for voiding trial with cystoscopy and prostate ultrasound. Voiding trial was attempted today and patient began voiding after only 60 cc was placed in the bladder.He remains on tamsulosin and reports that he discontinued the oxybutynin as instructed at his 1st visit. 04/18/[id number]-fyzy-ash -male present to clinic as new patient for ER ([facility]) visit on 04/08/24 decrease urine volume but increase urinary frequency. Patient is currently on Eliquis in addition to tamsulosin and oxybutynin. PSA 2018 4.8, 2019 PSA 9.4.Patient has had a longstanding history of nocturia with decreased force of stream for several years. He was on tamsulosin prior to his ER visit on 04/09/2024. He was placed on oxybutynin for unclear reasons at that visit. He has been taking this medication up through today.Per family, the patient became confused a few days ago and pulled on the catheter and has had gross hematuria since that time. They deny any previous episodes of gross hematuria.Family history is negative for malignancies.Alan akins is a current smoker 5-7 cigarettes per day. 04/29/24 UA: blood trace, bacteria trace, mucus 3+04/25/24 TRUS volume 93.4 cc04/08/24 CT/w ([facility]) kidneys and ureters: multiple Bosniack 1 renal cystic lesions defined as homogeneous and fluid density (-9 to 20 HU), no septation or calcifications, having rangel smooth and thin, largest cyst measures 1.1cm, no hydronephrosis. Urinary bladder unremarkable Enlarge prostate 6.8x4.9x6.7cm Cr 0.90, GFR 81, Hgb 15.7, Hct 46.702 UA pH 6.0, SG >=1.030, Blood-trace, 4 Cr 1.15, GFR 64, Hgb 16.3, Hct 47.18611 PSA 9.4 Lizzie Andrews, C[place], [address], [place], [address], [facility] - [place] & [place] 07/08/2024 14:17:41
--- OUTSIDE RECORDS SUMMARY | 2024-07-26 20:07 | XMS_ITS | Encounter Summary ---
Author Organization [facility] Address [address] [place] [address] Care Team Providers Care Shift Foreman Name Role Phone Stefania Gilliland BUILDING OPERATOR Primary Care Provider [phone] Encounter Details Date Type Department Care Team (Late st Contact Info) Description 01/23/2023 Lab Requisition [facility] [address] [place] [address] Ramo Talbot MD [address] [facility] [address] [place] [address] Encounter for general adult medical examination without abnormal findings Social History Tobacco Use Types Packs/Day Years Used Date Smoking Tobacco: Former Cigarettes 1 50 0 [birth year]/17/1965 - 11/18/2015 Smokeless Tobacco: Never Alcohol Use Standard Drinks/Week Comments Never 0 (1 standard drink = 0.6 oz pur e alcohol) Humiliation, Afraid, Rape, and Kick questionnair e Answer Date Recorded Within the last year, have y ou been afraid of your partner or ex-partner? No 01/19/2023 Within the last year, have y ou been humiliated or emotionally abused in other ways by your partner or ex-partner? No 01/19/2023 Physically Abused Not on file 01/19/2023 Within the last year, have y ou been raped or forced to have any kind of sexual activity by your partner or ex-partner? No 01/19/2023 PHQ-2 Answer Date Recorded Patient Health Questionnaire-2 Score 0 12/14/2022 Hunger Vital Sign Answer Date Recorded Within the past 12 months, y ou worried that your food would run out before you got the money to buy more. Never true 01/20/20 Within the past 12 months, t he food you bought just didn't last and you didn't have money to get more. Never true 01/19/2023 PRAPARE - Transportation Answer Date Re corded In the past 12 months, has l ack of transportation kept you from medical appointments or from getting medications? No 12/23 In the past 12 months, has l ack of transportation kept you from meetings, work, or from getting things needed for daily living? No 01/19/2023 Housing Stability Vital Sign Answer Brandan e Recorded In the last 12 months, was t here a time when you were not able to pay the mortgage or rent on time? No 01/19/2023 In the last 12 months, how many places have you lived? 1 01/19/2023 In the last 12 months, was t here a time when you did not have a steady place to sleep or slept in a long-term (including now)? No 01/19/2023 Utilities Answer Date Recorded In the past 12 months has th e electric, gas, oil, or water company threatened to shut off services in your home? No 01/19/2023 PHQ-2A Answer Date Recorded Patient Health Questionnaire-2 Score 0 12/14/2022 Sex and Gender Information Value Date Recorded Sex Assigned at Male 02/11/2023 12:45 AM EST Legal Sex Male 7:05 PM EDT Gender Identity Male 02/11/2023 12:45 AM EST Sexual Orientation Straight 02/11/2023 12 :45 AM EST documented as of this encounter Functional Status * Calculated C-SSRS Risk Score (Lifetime/Recent) Answer Date of Assessment Author No Risk Indicated 01/26/2023 7:00 AM Ra Hill * Question Answer Date of Assessment Author 1. Wish to be (Past 1 Month) No 023 7:00 AM Ra Hill 2. Non-Specific Active Suici debbie Thoughts (Past 1 Month) No 01/26/2023 7:00 AM Dilip Hill 6. Suicidal Behavior (Lifetime) No 7:00 AM EST Anatoly Ra Lin documented as of this encounter Plan of Treatment Not on file documented as of this encounter Procedures Procedure Name Priority Date/Time Associated Diagnosis Comments MULTI DRUG RESISTANCE TEST Routine 01/23/2023 9:40 AM EST Encounter for general adult medical examination without abnormal findings documented in this encounter Results * Multi Drug Resistance Test (01/23/2023 9:40 AM EST) Culture No growth at day 1 01/24/2023 6:15 AM EST [facility] Swab (Nares and Miriam Rectal) 01/23/2023 9:40 AM EST 01/23/2023 9:58 AM EST us Ramo Talbot MD LAB MICROBIOLOGY - GEN ERAL ORDERABLES Final Result Performing Organization Address City/State/[facility] Co de Phone Number [facility] [address] [place] [phone] documented in this encounter Visit Diagnoses Diagnosis Encounter for general adult medical examination without abnormal findings documented in this encounter Additional Health Concerns Infection Onset Date Last Indicated Resolved Time 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
--- OUTSIDE RECORDS SUMMARY | 2024-07-26 20:07 | XMS_ITS | Continuity of Care Document ---
Author Organization [facility] Urology-100 Address [address] [address] [place] [address] Care Team Providers Care Fireman Helper Name Role Phone SHERRY DOBSON Referring Provider [phone] Assessment No assessment recorded. Plan of Treatment [...] prostatic hyperplasi a with outflow obstructio n [id number] Active 2024 [place], [address] [facility] & [place] 5 16:11:43 Retention of urine 854663274 [facility] [address] [facility] & [place] 5 16:11:47 Lawrence hematuria 313250779 Active 2024 [facility] [address] [facility] & [place] 5 17:37:13 Kidney disease 00595740 Active 2024 Sierra Chávez [facility], [facility] & [place] 5 11:03:47 Hyperchole sterolemia 67538986 Active 2024 Sierra [place], [place] [facility] & [place] 5 11:03:56 Hypertensi ve disorder 13477241 Active 2024 Sierra Chávez null, [place] [facility] & [place] 5 11:04:03 Chronic obstructiv e pulmonary disease 24795944 Active 2024 Sierra Chávez [place] [facility] & [place] 5 11:04:09 Denture present 282731748 Active 2024 Sierra Chávez null, [place] [facility] & [place] 5 11:04:20 Environmen gila allergy 664755455 Active 2024 Sierra Chávez [place], [place] [facility] & [place] 5 11:04:29 Heart disease 71898774 Active 2024 Sierra Chávez null, [place] - [facility] & [place] 5 11:04:37 Myocardial infarction 89493091 Active 2024 Sierra turner, [place] - [facility] & [place] 5 11:04:47 Lower urinary tract symptoms due to benign prostatic hypertroph y [id number] 1 Active 2024 MAYUR CORBIN MD [address], [place], [address] , [place] - [place] - [place] & [place] 5 10:57:17 Problem Notes None recorded. Procedures Surgical History Date Name Laterality Status Provider Name and Address Organization Details Recorded Time 5 Cystoscopy-Mal e completed MAYUR CORBIN MD [address], [place], [address], [place] - [place] - [place] & [place] 06/13/2024 17:35:45 5 Kidd Catheter Insertion completed Felisha Ulloa [place] - [place] & [place] 06/13/2024 14:25:05 5 Cystoscopy-Mal e completed MAYUR CORBIN MD [address], [place], [address], [facility] & [place] 04/25/2024 10:56:51 5 TRUS completed MD [address], [place], [address], [facility] & [place] 04/25/2024 10:57:12 Imaging Results None recorded. Procedure [...] e) 50 mcg/actuati on nasal spray,suspe nsion Hubbard 1 spray every day by intranasa l [...] SNOMED-CT Code Diagnosis ICD10 Code Diagnosis Note [id number] MAYUR CORBIN MD [facility] Urology-[address] [place] [address] 05/16/2024 14:23:47 05/16/2024 16:25:31 Benign prostatic hyperplasia with outflow obstruction [id number] N40.1 N13.8 I have instructed the patient to discontinu e oxybutynin immediatel y. We did not perform voiding trial today as this would likely be unsuccessf ul. He will continue tamsulosin and follow up next week for voiding trial with cystoscopy and prostate ultrasound . Retention of urine 48619 4002 R33.9 Patient successful ly completed voiding trial today and has declined further catheteriz ation. He will follow up in 6 weeks for PVR check. [id number] MAYUR CORBIN MD [facility]-[address] [place] [address] 06/13/2024 13:44:36 06/13/2024 14:21:15 Retention of urine [id number] R33.9 will send urine for PCR [id number] MAYUR CORBIN MD [facility]-[address] [place] [address] 06/13/2024 16:21:44 06/13/2024 17:10:35 Lawrence hematuria [id number] R31.0 Flexible cystoscopy performed in office today showed bleeding from the prostate but no active bleeding or formed blood clots within the bladder lumen. A new 18 Martiniquais catheter was placed over guidewire with 10 cc of sterile water in the balloon. This was irrigated to clear yellow urine. Retention of urine 51593 4002 R33.9 Patient will continue catheteriz ation [...] Name 06/13/2024 1 [place] Ti Rodríguez [id number] Ti Rodríguez 06/13/2024 2 [place] [id number] Ti Rodríguez [id number] Ti Rodríguez Notes Date Note Type Note Provider Name and Address Organization Details Recorded Time 06/13/2024 text/html 06/13/24 83-year-old male presents as a work-in for gross hematuria. Kidd catheter was exchanged earlier today and initially drained clear, however, he returned with gross hematuria and clot passage. Attempts were made by nurse practitioner to replace the catheter which were unsuccessful.------ 0 05/16/24 CC: 59-gcwl-tez-male returns to clinic for follow up ER ([facility]) visit on 04/29/24 for increased abdominal [...] leakage. The patient has not seen a technical assistant in years but has been managed by Renea Pagan with Dr. Loo in [facility]. 04/25/24 43-hdha-eng-male present to clinic for voiding trial with cystoscopy and prostate ultrasound. Voiding trial was attempted today and patient began voiding after only 60 cc was placed in the bladder.He remains on tamsulosin and reports that he discontinued the oxybutynin as instructed at his 1st visit. 04/18/25805973-bqib-oxe -male present to clinic as new patient for ER ([facility]) visit on 04/08/24 decrease urine volume [...] 3+04/25/24 TRUS volume 93.4 cc04/08/24 CT/w ([facility]) kidneys and ureters: multiple Bosniack 1 renal cystic lesions defined as homogeneous and fluid density (-9 to 20 HU), no septation or calcifications, having rangel smooth and thin, largest cyst measures 1.1cm, no hydronephrosis. Urinary bladder unremarkable Enlarge prostate 6.8x4.9x6.7cm Cr 0.90, GFR 81, Hgb 15.7, Hct 46.7004/08/24 UA pH 6.0, SG >=1.030, Blood-trace, 4 Cr 1.15, GFR 64, Hgb 16.3, Hct 47.54681 PSA 9.4 MAYUR CORBIN MD [address], [place], [address], [facility] - [place] & [place] 06/13/2024 17:41:46
--- OUTSIDE RECORDS SUMMARY | 2024-07-26 20:08 | XMS_ITS ---
Author Organization [facility] Address [address] [place] [address] Care Team Providers Care Pari Mutuel Ticket Cashier Name Role Phone Stefania Gilliland PRODUCTION PAINTER Primary Care Provider [phone] Active Problems Problem Noted Date Diagnosed Date Overweight (BMI 25.0-29.9) 05/19/2023 Stenosis of left carotid artery 04/17/2023 Skin cancer 04/17/2023 Seasonal allergies 04/17/2023 Renal artery stenosis 04/17/2023 SDH (subdural hematoma) 03/23/2023 Overview (03/25/2023): Fall out of bed leading to left-sided subdural hematoma with extension to the parafalcine region and right tentorium - NSGY consulted, repeat head CT stable, no acute intervention - Keppra loaded and scheduled x 7 days (end date 03/31) - Hold antiplatelet and anticoagulant medications for two weeks (04/06) unless holding medications is strongly contraindicated UTI (urinary tract infection) 03/23/2023 Overview (03/24/2023): Received one time dose Rocephin Urine culture with mixed aron Multiple left-sided nontraum atic localized intracerebral hemorrhages 03/23/2023 Traumatic intracerebral hemo rrhage with loss of consciousness, initial encounter 03/22/2023 Abnormal result of cardiovascular function study 03/17/2023 Ataxia 03/17/2023 Elevated PSA 03/17/2023 Gouty arthritis 03/17/2023 Mixed hyperlipidemia 03/17/2023 Hypertensive heart disease w ith congestive heart failure and chronic kidney disease 03/17/2023 Neuropathy 03/17/2023 Benign prostatic hyperplasia with lower urinary tract symptoms 03/17/2023 Coronary artery disease invo lving [place] coronary artery of [place] heart without angina pectoris 03/17/2023 Abdominal aortic aneurysm 03/17/2023 Obesity (BMI 30.0-34.9) 03/17/2023 CKD (chronic kidney disease) 02/14/2023 Overview (02/24/2023): - Cr 1.03 on admit - WNL S/P AKA (above knee amputation), right Overview (03/24/2023): - 02/08/23: Right above knee amputation and right groin 2/: Maame removed per vascular in ED Class 2 obesity in adult 02/14/2023 Overview (02/24/2023): - BMI 38.44 on admit - Complicates care and recovery PVD (peripheral vascular disease) 02/09/2023 Overview (02/24/2023): - 01/17/23: EVAR then taken back for exploration of right femoral artery, iliofemoral and femoropopliteal thrombectomies, repair of the right femoral arteriotomy with bovine patch angioplasty, and RLE 4 compartment fasciotomies (Dr. Ann) - 01/18/23: Right superficial femoral artery thrombectomy (Dr. Boss) - 01/31/23: RLE lateral fasciotomy site area debrided 15 x 6 cm to include subcutaneous tissue and muscle and exploration of right groin revascularization site for post-operative infection and application of a wound vac (Dr. Rausch) - 02/08/23: Right above knee amputation and right groin WV change (Dr. Boss) - Continue Xarelto & Plavix COPD (chronic obstructive pulmonary disease) Overview (03/24/2023): -Duonebs CAD (coronary artery disease) 01/17/2023 Overview (03/25/2023): - s/p CABG - Continue home Plavix - Continue Metoprolol tartrate 75 mg TID - Continue nifedipine - STOP nebivolol 5 mg daily GERD (gastroesophageal reflux disease) Overview (02/24/2023): - Continue home lansoprazole BPH (benign prostatic hyperplasia) 01/17/2023 Overview (02/24/2023): - Continue home Flomax Afib 01/17/2023 Overview (03/25/2023): - STOP home nebivolol 5 mg daily - Continue metoprolol tartrate 75 mg TID - Continue home nifedipine, half dose - Holding xarelto until 04/06 HFrEF (heart failure with reduced ejection fract ion) 01/17/2023 Overview (02/24/2023): - LVEF 45% in 2019 - 01/19/23: ECHO showed LVEF 40-55% - Continue home Plavix - STOP home nebivolol 5 mg daily - Continue metoprolol tartrate 75 mg TID - Continue new nifedipine 60 mg daily Gout 01/17/2023 Overview (02/24/2023): - HOLD home allopurinol Electrolyte abnormality 01/17/2023 Overview (03/24/2023): -Low K, Ca, Mag -Replace PRN Abdominal aortic aneurysm (AAA) without rupture 03/29/2021 Overview (03/24/2023): - 01/17/23: EVAR then taken back for exploration of right femoral artery, iliofemoral and femoropopliteal thrombectomies, repair of the right femoral arteriotomy with bovine patch angioplasty, and RLE 4 compartment fasciotomies (Dr. Ann) - 01/18/23: Right superficial femoral artery thrombectomy (Dr. Boss) - Continue Xarelto & Plavix (holding until 04/06) - Continue home ezetimibe/simavastin daily HTN (hypertension) 06/30/2017 Overview (03/25/2023): - Continue home Metoprolol tartrate 75 mg TID - Continue nifedipine Current Treatment and Therapy Plans No current plan information found. Past Treatment and Therapy Plans No past plan information found. Lifetime Dose Tracking * Chemical Lifetime Dose Automatic Entry Manual Entr y Fluoro Time 29.7 minutes 29.7 minutes 0 minutes Air Kerma 3,477.95 mGy 3,477.95 mGy 0 mGy Air Kerma Area Product 1,922.95 Gym 1,922.95 Gym 0 Gym Resolved Problems Problem Noted Date Diagnosed Date Resolved Date Avulsion of skin 03/17/2023 03/24/2023 COVID-19 03/17/2023 03/24/2023 Epistaxis 03/17/2023 03/24/2023 HLD (hyperlipidemia) 03/17/2023 024 Laceration of thumb 03/17/2023 03/24/19 24 Psoriasis of scalp 03/17/2023 Plantar fasciitis of right foot 03/17/2023 03/24/2023 Viral pneumonia 03/17/2023 03/24/2023 Viral syndrome 03/17/2023 03/24/2023 Paroxysmal atrial fibrillation 03/17/2023 03/24/2023 Stage 3 chronic kidney disease 03/17/2023 03/24/2023 GERD without esophagitis 03/17/202303/2023 Orthopnea 03/17/2023 03/24/2023 Dyspnea 03/17/2023 03/24/2023 Hyponatremia 02/17/2023 02/23/2023 Overview (02/17/2023): - Na+ 135 on 02/17/23 - CTM/trend Postoperative anemia 02/14/2023 024 Overview (02/24/2023): - Received 1 unit PRBC on 02/09/23 and 1 unit PRBC on 02/10/23 - H/H stable Cellulitis, wound, post-operative 02/09/2023 02/14/2023 Orthopnea 02/06/2023 02/14/2023 Post-operative numbness 02/02/2023 02/0 03/2023 Overview (02/24/2023): - Continue gabapentin 800 mg TID (takes 600 mg TID at home) Surgical site infection 01/29/2023 02/0 02/2023 Overview (02/24/2023): - 01/31/23: RLE lateral fasciotomy site area debrided 15 x 6 cm to include subcutaneous tissue and muscle and exploration of right groin revascularization site for post-operative infection and application of a wound vac (Dr. Rausch) - 02/08/23: Right above knee amputation and right groin WV change (Dr. Boss) - Wound cxs on 01/31/23: +Pansusceptible Proteus, Amp-S E. Faecalis, Bacillus species and Acinetobacter species (Not Baumanii) - ID consulted - Zosyn & Linezolid from 01/29/23-02/03/23 - Cefepime & Flagyl on 02/03/23 - Meropenum from 02/04/23-02/05/23 - Vancomycin from 02/03/23-02/16/23 - Unasyn from 02/05/23-02/16/23 - Right groin wet to dry dressing covered by ABD pad BID Hyperbilirubinemia 01/26/2023 Overview (01/26/2023): - T. Bili 1.5 on 01/23 - T. Bili 1.8 on 01/25 - Stable Obesity (BMI 30.0-34.9) 01/19/202301/21 Overview (01/26/2023): - BMI 38.74 on admit - Complicates all aspects of care and recovery Anemia 01/18/2023 02/14/2023 Overview (01/26/2023): - Received 2 units PRBC on 01/17/23, 1 unit on 01/18/23, and 1 unit PRBC on 01/22/23 - H/H stable Lactic acidosis 01/18/2023 01/23/2023 Overview (01/20/2023): Down trending Continue to monitor and tend Hyperkalemia 01/18/2023 01/23/2023 Overview (01/20/2023): - K+ 5.7 on 01/17 - K+ 5.5 on 01/18 - K+ 4.6 on 01/19 - K+ 4.2 01/20 Continue to monitor Acute kidney injury superimp osed on chronic kidney disease 01/18/2023 02/14/2023 Overview (01/26/2023): - Cr on admission 1.0 - Cr WNL Hypoproteinemia 01/18/2023 02/14/2023 Overview (01/26/2023): - With hypoalbuminemia - Continue regular diet Transaminitis 01/18/2023 02/14/2023 Overview (01/26/2023): - Downtrending - Stable Postoperative pain 01/18/2023 Overview (02/24/2023): - Continue multimodal pain control with Robaxin, gabapentin, and PRN oxycodone Pararenal abdominal aortic a neurysm (AAA) without rupture 01/17/2023 01/17/2023 Anticoagulant long-term use 01/17/2023 03/24/2023 Overview (02/24/2023): - Continue home Xarelto Thrombocytopenia 01/17/2023 01/26/2023 Overview (01/23/2023): - Plts 152 on admit - Plts 141 on 01/23 - Stable Acute respiratory failure 01/17/2023 Overview (01/26/2023): - 01/17: Intubated for OR, remained intubated post-operatively - 01/18: Extubated, re-intubated for OR, remained intubated post-op - 01/19: Extubated - RA Acute lower limb ischemia 12/14/2022 Overview (01/17/2023): S/p Ultrasound-guided percutaneous bilateral common femoral arteries, Shockwave lithotripsy bilateral common iliac arteries, Selective cannulation, angiography and oil embolization of lumbar artery, EVAR, >12 Fr sheath percutaneous closure of bilateral common femoral arteries LR at 100ml/h Low dose heparin drip Vascular checks q1 Dilaudid drip Acute lower limb ischemia 12/14/2022 Overview (02/24/2023): - 01/31/23: RLE lateral fasciotomy site area debrided 15 x 6 cm to include subcutaneous tissue and muscle and exploration of right groin revascularization site for post-operative infection and application of a wound vac (Dr. Rausch) - 02/08/23: Right above knee amputation and right groin WV change (Dr. Boss) - Continue Xarelto & Plavix 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 023
--- OUTSIDE RECORDS SUMMARY | 2024-07-26 20:08 | XMS_ITS | Data Portability ---
Author Organization [facility] - [place] & [facility] ADMIN Address [address] [place] [address] Care Team Providers Care Ceramic Tiler Name Role Phone SHERRY DOBSON Referring Provider [phone] Assessment Encounter Date Assessment Date Assessment LastModified by Organization Details LastModified Time 05/16/2024 05/16/2024 ASSESSMENT: Ti Rodríguez is an 83-year-old male with an enlarged prostate and urinary retention requiring catheterizatio n. PLAN: 1. Discussed surgical options with the patient, including plasma button TURP, green light laser, and UroLift. 2. Recommended plasma button TURP as the most effective option for maximum channel opening. 3. Performed a BP test to assess bladder contraction, which showed good numbers with a voiding peak pressure of 68 cm of water. 4. Advised obtaining clearance from Dr. Howard, the patient's hot stamp operator, due to the patient's history of heart attack and current use of Eliquis. 5. Informed the patient about the risks of surgery, including bleeding, infection, injury to structures, urinary incontinence, and risks of anesthesia. 6. Explained that the patient would have a catheter post-surgery and might need to stay overnight for observation depending on the degree of bleeding. 7. Scheduled follow-up with Radha to coordinate the next steps and obtain necessary clearances. [email or web address] Not available 05/16/2024 15:55:37 Plan of Treatment Reminders Order Date Submit Date Provider Last Modified By Organization Details Last Modified Time Details Appointments None recorded. Lab None recorded. Referral None recorded. Procedures None recorded. Surgeries transurethr al resection of prostate (SURG) 2024 025 [email or web address] Not available 14:38:41 Imaging None recorded. Medication Orders dutasteride 0.5 mg capsule 2024 025 [facility], [address], [address], [place], [address], 11:06:24 Patient TargetsNo targets recorded. Patient InstructionsNo instructions recorded. Reason for Referral None Reported. Results Created Date Observation Date Name Description Value Unit Range Abnormal Flag Note LastModifiedBy Organization Detail LastModifiedTime Result Notes None recorded. Problems Name Problem SNOMED Code Status Onset Date Resolution Date Notes Provider Name and Address Organization Details Recorded Time Benign prostatic hyperplasi a with outflow obstructio n 659317743 Active 2024 MAYUR PUENTE MD [address], [place], [address] , [place] [facility] [place] & [place] 5 16:11:43 Retention of urine 283024061 Active 2024 MAYUR PUENTE MD [address], [place], [address] , [place] [facility] [place] & [place] 5 16:11:47 Lawrence hematuria 146386797 Active 2024 MAYUR PUENTE MD [address], [place], [address] , [place] [facility] [place] & [place] 5 17:37:13 Kidney disease 85317094 Active 2024 Sierra turner, [place] [facility] [place] & [place] 5 11:03:47 Hyperchole sterolemia 82248865 Active 2024 Sierra Chávez null, [place] - [facility] [place] & [place] 5 11:03:56 Hypertensi ve disorder 67378637 Active 2024 Sierra turner, [place] [facility] [place] & [place] 5 11:04:03 Chronic obstructiv e pulmonary disease 19898782 Active 2024 Sierra turner, [place] [facility] [place] & [place] 5 11:04:09 Denture present 539320232 Active 2024 Sierra turner, [place] [facility] & [place] 5 11:04:20 Environmen gila allergy 596101202 Active 2024 Sierra Chávez null, [place] [facility] [place] 5 11:04:29 Heart disease 85251359 Active 2024 Sierra turner, [place] [facility] & [place] 5 11:04:37 Myocardial infarction 79020120 Active 2024 Sierra turner, [place] [facility] & [place] 5 11:04:47 Lower urinary tract symptoms due to benign prostatic hypertroph y 3225863680665 1 Active [address], [place], [address] , [place] [facility] [place] & [place] 5 10:57:17 Problem Notes None recorded. Procedures Surgical History Date Name Laterality Status Provider Name and Address Organization Details Recorded Time 5 Cystoscopy-Mal e completed MD [address], [place], [address], [place] [facility] [place] & [place] 06/13/2024 17:35:45 5 Kidd Catheter Insertion completed Felisha Ulloa [place] - [facility] [place] & [place] 06/13/2024 14:25:05 5 Cystoscopy-Mal e completed MD [address], [place], [address], [place] [facility] [place] & [place] 04/25/2024 10:56:51 5 TRUS completed MD [address], [place], [address], [place] [facility] [place] & [place] 04/25/2024 10:57:12 Imaging Results None recorded. Procedure [...] e) 50 mcg/actuati on nasal spray,suspe nsion Ariel 1 spray every day by intranasa l route. active Not Available Not Available No t Available Trelegy Ellipta 100 mcg-62.5 mcg-25 mcg powder for inhalation active Not Available Not Available N ot Available Vitals Date Recorded Body height Body mass index (BMI) Body weight Oxygen saturation Oxygen saturation in Arterial blood by Pulse oximetry Heart rate Systolic blood pressure Diastolic blood pressure Provider Name and Address Organization Details Last Updated DateTime 5 165.1 cm 24.6 kg/m2 08258.6 7 g 96 % 96 % 82 /min 160 mm[Hg] 75 mm[Hg] [facility] [place] 5 14:35:00 Social History None recorded. Functional Status Question [...] SNOMED-CT Code Diagnosis ICD10 Code Diagnosis Note [id number] MAYUR PUENTE MD [facility] [place] [address] 04/18/2024 09:52:42 04/18/2024 10:47:45 Benign prostatic hyperplasia with outflow obstruction 738273956 N40.1 I have instructed the patient to discontinu e oxybutynin immediatel y. We did not perform voiding trial today as this would likely be unsuccessf ul. He will continue tamsulosin and follow up next week for voiding trial with cystoscopy and prostate ultrasound . Retention of urine 05979 4002 R33.9 See above. We will attempt DYNAMOMETER TESTER test at his follow up appointmen tashi Bravo hematuria 64197891 5 R31.0 likely secondary to Kidd trauma, however, given smoking history we will complete lower tract evaluation with cystoscopy . [id number] MAYUR PUENTE MD [facility] [address] [facility] [address] [place] [address] 04/25/2024 10:26:05 04/25/2024 11:03:18 Lower urinary tract symptoms due to benign prostatic hypertrophy 9021578754 9101 N40.1 Patient has declined Kidd replacemen t today. We discussed options moving forward. At a minimum, I would like him to remain on tamsulosin and to continue holding oxybutynin . We discussed additional treatments including 5 alpha reductase inhibitors versus surgical interventi on. Patient would like to start dutasterid e. Side effect profile of the medication was reviewed. I explained that it can take up to 4 months for this medicine to hit its peak effect of shrinking the prostate by 30%. I also explained that there was no guarantee that decreasing the size of the prostate will improve voiding patterns. Patient verbalized his understand ing. Retention of urine 87036 4002 R33.9 Patient successful ly completed voiding trial today and has declined further catheteriz ation. He will follow up in 6 weeks for PVR check. [id number] MAYUR PUENTE MD [facility] [address] [facility] [facility] [address] [place] [address] 05/16/2024 14:23:47 05/16/2024 16:25:31 Benign prostatic hyperplasia with outflow obstruction 002946079 N40.1 N13.8 I have instructed the patient to discontinu e oxybutynin immediatel y. We did not perform voiding trial today as this would likely be unsuccessf ul. He will continue tamsulosin and follow up next week for voiding trial with cystoscopy and prostate ultrasound . Retention of urine 67082 4002 R33.9 Patient successful ly completed voiding trial today and has declined further catheteriz ation. He will follow up in 6 weeks for PVR check. [id number] MAYUR PUENTE MD [facility] [address] [facility] [address] [place] [address] 06/13/2024 13:44:36 06/13/2024 14:21:15 Retention of urine 835571243 R33.9 will send urine for PCR [id number] MAYUR PUENTE MD [facility]1 00 [address] [facility] [address] [place] [address] 06/13/2024 16:21:44 06/13/2024 17:10:35 Lawrence hematuria 596917036 R31.0 Flexible cystoscopy performed in office today showed bleeding from the prostate but no active bleeding or formed blood clots within the bladder lumen. A new 18 Mosotho catheter was placed over guidewire with 10 cc of sterile water in the balloon. This was irrigated to clear yellow urine. Retention of urine 26629 4002 R33.9 Patient will continue catheteriz ation for now. He was tentativel y scheduled for Transureth ral resection of the prostate in the upcoming months pending cardiac clearance. [id number] MAYUR PUENTE MD [facility]1 00 [address] [facility] [address] [place] [address] 07/08/2024 13:18:24 07/08/2024 15:12:42 Lawrence hematuria 032218348 R31.0 Tried to irrigate Kidd cath; however, pt having bladder spasms and starts leaking urine around catheter. Tried several times. Called and spoke with Dr Puente, send pt to ER for possible hospital admission for CBI. Called ER and spoke with provider (Kelton) about pts diagnosis and pt is on several anticoagul ant medication s. Discussed with pt plan as well. Pt agreeable with plan. Health Concerns Section Related Observation LastModified by Organization Detai ls LastModified Time None Recorded Concern Status LastModified by Organization Details LastModified Time None Recorded Advance Directives Directive None Recorded Payers Insurance Date Sequence Insurance Name Policy Number Policy Calderon Covered Member ID Calderon Member ID Guarantor Name 04/18/2024 2 [place] [id number] Ti Rodríguez [id number] Ti Rodríguez 07/25/2024 1 [place] Ti Rodríguez [id number] Ti Rodríguez 07/25/2024 2 [place] [id number] Ti Rodríguez [id number] Ti Rodríguez Notes Date Note Type Note Provider Name and Address Organization Details Recorded Time 04/25/2024 text/html 04/25/24 24-khvl-mpz-male present to clinic for voiding trial with cystoscopy and prostate ultrasound. Voiding trial was attempted today and patient began voiding after only 60 cc was placed in the bladder. He remains on tamsulosin and reports that he discontinued the oxybutynin as instructed at his 1st visit. 04/18/25801012-lhzi-cpt -male present to clinic as new patient for ER ([facility]) visit on 04/08/24 decrease urine volume [...] a current smoker 5-7 cigarettes per day. 04/08/24 CT/w ([facility]) kidneys and ureters: multiple Bosniack 1 renal cystic lesions defined as homogeneous and fluid density (-9 to 20 HU), no septation or calcifications, having rangel smooth and thin, largest cyst measures 1.1cm, no hydronephrosis. Urinary bladder unremarkable Enlarge prostate 6.8x4.9x6.7cm Cr 0.90, GFR 81, Hgb 15.7, Hct 46.702 UA pH 6.0, SG >=1.030, Blood-trace, 4 Cr 1.15, GFR 64, Hgb 16.3, Hct 47.15861 PSA 9.4 MAYUR ART, MD [address], [place], [address], [place] [facility] [place] & [place] 04/25/2024 10:59:03 05/16/2024 text/html 05/16/24 CC: 83-xpxa-tda-male returns to clinic for follow up ER ([facility]) visit on 04/29/24 for increased abdominal [...] leakage. The patient has not seen a hot stamp operator in years but has been managed by Renea Pagan with Dr. Loo in [facility]. 04/25/24 32-bwow-eir-male present to clinic for voiding trial with cystoscopy and prostate ultrasound. Voiding trial was attempted today and patient began voiding after only 60 cc was placed in the bladder.He remains on tamsulosin and reports that he discontinued the oxybutynin as instructed at his 1st visit. 04/18/25802700-bjbn-jzb -male present to clinic as new patient for ER ([facility]) visit on 04/08/24 decrease urine volume [...] mucus 3+04/25/24 TRUS volume 93.4 cc04/08/24 CT/w ([facility]) kidneys and ureters: multiple Bosniack 1 renal cystic lesions defined as homogeneous and fluid density (-9 to 20 HU), no septation or calcifications, having rangel smooth and thin, largest cyst measures 1.1cm, no hydronephrosis. Urinary bladder unremarkable Enlarge prostate 6.8x4.9x6.7cm Cr 0.90, GFR 81, Hgb 15.7, Hct 46.702 UA pH 6.0, SG >=1.030, Blood-trace, 4 Cr 1.15, GFR 64, Hgb 16.3, Hct 47.85805 PSA 9.4 MAYUR PUENTE MD [address], [place], [address], [place] [facility] [place] & [place] 05/16/2024 16:13:17 06/13/2024 text/html 06/13/24 83-year-old male presents as a work-in for gross hematuria. Kidd catheter was exchanged earlier today and initially drained clear, however, he returned with gross hematuria and clot passage. Attempts were made by nurse practitioner to replace the catheter which were unsuccessful.------ 0 05/16/24 CC: 16-klhd-uvm-male returns to clinic for follow up ER ([facility]) visit on 04/29/24 for increased abdominal [...] leakage. The patient has not seen a hot stamp operator in years but has been managed by Renea Pagan with Dr. Loo in [facility]. 04/25/24 72-bvxg-ndq-male present to clinic for voiding trial with cystoscopy and prostate ultrasound. Voiding trial was attempted today and patient began voiding after only 60 cc was placed in the bladder.He remains on tamsulosin and reports that he discontinued the oxybutynin as instructed at his 1st visit. 04/18/25803307-wutc-wld -male present to clinic as new patient for ER ([facility]) visit on 04/08/24 decrease urine volume [...] mucus 3+04/25/24 TRUS volume 93.4 cc04/08/24 CT/w ([facility]) kidneys and ureters: multiple Bosniack 1 renal cystic lesions defined as homogeneous and fluid density (-9 to 20 HU), no septation or calcifications, having rangel smooth and thin, largest cyst measures 1.1cm, no hydronephrosis. Urinary bladder unremarkable Enlarge prostate 6.8x4.9x6.7cm Cr 0.90, GFR 81, Hgb 15.7, Hct 46.702 UA pH 6.0, SG >=1.030, Blood-trace, 4 Cr 1.15, GFR 64, Hgb 16.3, Hct 47.85625 PSA 9.4 MAYUR PUENTE MD [address] [facility], [place], [address], [place] [facility] [place] & [place] 06/13/2024 17:41:46 07/08/2024 text/html 07/08/2024 83 yowm [...] catheter which were unsuccessful.------ 0 05/16/24 CC: 68-pwsx-cfg-male returns to clinic for follow up ER ([facility]) visit on 04/29/24 for increased abdominal [...] leakage. The patient has not seen a hot stamp operator in years but has been managed by Renea Pagan with Dr. Loo in [facility]. 04/25/24 34-rkft-pbd-male present to clinic for voiding trial with cystoscopy and prostate ultrasound. Voiding trial was attempted today and patient began voiding after only 60 cc was placed in the bladder.He remains on tamsulosin and reports that he discontinued the oxybutynin as instructed at his 1st visit. 04/18/25802626-pxkr-yti -male present to clinic as new patient for ER ([facility]) visit on 04/08/24 decrease urine volume [...] mucus 3+04/25/24 TRUS volume 93.4 cc04/08/24 CT/w ([facility]) kidneys and ureters: multiple Bosniack 1 renal cystic lesions defined as homogeneous and fluid density (-9 to 20 HU), no septation or calcifications, having rangel smooth and thin, largest cyst measures 1.1cm, no hydronephrosis. Urinary bladder unremarkable Enlarge prostate 6.8x4.9x6.7cm Cr 0.90, GFR 81, Hgb 15.7, Hct 46.7004/08/24 UA pH 6.0, SG >=1.030, Blood-trace, 4 Cr 1.15, GFR 64, Hgb 16.3, Hct 47.88160 PSA 9.4 Lizzie Andrews, CELSO, [address], [place], [address], [facility] - [place] - [place] & [place] 07/08/2024 14:17:41
--- OUTSIDE RECORDS SUMMARY | 2024-07-26 20:08 | XMS_ITS | Continuity of Care Document ---
Author Organization [facility] & [facility]100 Address [address] [facility] [address] [address] [place] [address] Care Team Providers Care Ethical Hacker Name Role Phone SHERRY DOBSON Referring Provider [phone] Assessment No assessment recorded. Plan of Treatment [...] prostatic hyperplasi a with outflow obstructio n 761950982 Active 2024 [place], [address] [facility] & [place] 5 16:11:43 Retention of urine 716472892 [facility] [address] [facility] & [place] 5 16:11:47 Lawrence hematuria 907182671 Active 2024 [facility] [address] [facility] & [place] 5 17:37:13 Kidney disease 70940825 Active 2024 Sierra Chávez [facility], [facility] & [place] 5 11:03:47 Hyperchole sterolemia 57321047 Active 2024 [place] [facility] [place] 5 11:03:56 Hypertensi ve disorder 28816284 Active 2024 Sierra Chávez null, [place] [facility] [place] 5 11:04:03 Chronic obstructiv e pulmonary disease 60541702 Active 2024 Sierra Chávez null, [place] [facility] [place] 5 11:04:09 Denture present 685318245 Active 2024 Sierra Chávez null, [place] [facility] [place] 5 11:04:20 Environmen gila allergy 897151499 Active 2024 Sierra Chávez null, [place] [facility] & [place] 5 11:04:29 Heart disease 18271815 Active 2024 Sierra Chávez null, [place] [facility] [place] 5 11:04:37 Myocardial infarction 68188453 Active 2024 [place] turner[place] [facility] [place] 5 11:04:47 Lower urinary tract symptoms due to benign prostatic hypertroph y 1165881303265 1 Active 2024 MAYUR PUENTE MD [address], [place], [address] , [place] [facility] - [place] & [place] 5 10:57:17 Problem Notes None recorded. Procedures Surgical History Date Name Laterality Status Provider Name and Address Organization Details Recorded Time 5 Cystoscopy-Mal e completed MAYUR PUENTE MD [address], [place], [address], [place] [facility] [place] & [place] 06/13/2024 17:35:45 5 Kidd Catheter Insertion completed Felisha Ulloa [place] - [facility] [place] & [place] 06/13/2024 14:25:05 5 Cystoscopy-Mal e completed MAYUR PUENTE MD [address], [place], [address], [facility] & [place] 04/25/2024 10:56:51 5 TRUS completed MD [address], [place], [address], [facility] & [place] 04/25/2024 10:57:12 Imaging Results None recorded. Procedure [...] e) 50 mcg/actuati on nasal spray,suspe nsion [place] 1 spray every day by intranasa l [...] SNOMED-CT Code Diagnosis ICD10 Code Diagnosis Note [id number] MAYUR PUENTE MD [facility]-1 00 [address] [facility] [address] [place] [address] 06/13/2024 13:44:36 06/13/2024 14:21:15 Retention of urine 616354686 R33.9 will send urine for PCR [id number] MAYUR PUENTE MD [facility]-1 00 [address] [facility] [address] [place] [address] 06/13/2024 16:21:44 06/13/2024 17:10:35 Lawrence hematuria R31.0 Flexible cystoscopy performed in office today showed bleeding from the prostate but no active bleeding or formed blood clots within the bladder lumen. A new 18 Syri[place] catheter was placed over guidewire with 10 cc of sterile water in the balloon. This was irrigated to clear yellow urine. Retention of urine 96156 4002 R33.9 Patient will continue catheteriz ation for now. He was tentativel y scheduled for Transureth ral resection of the prostate in the upcoming months pending cardiac clearance. [id number] MAYUR PUENTE MD [facility]-[address] [place] [address] 07/08/2024 13:18:24 07/08/2024 15:12:42 Lawrence hematuria 451376926 R31.0 Tried to irrigate Kidd cath; however, [...] Member ID Calderon Member ID Guarantor Name 07/08/2024 1 [place] Ti Rodríguez [id number] Ti Rodríguez 07/08/2024 2 [place]MENT) [id number] Ti Rodríguez [id number] Ti Rodríguez Notes Date Note Type Note Provider Name and Address Organization Details Recorded Time 07/08/2024 text/html 07/08/2024 83 yowm comes into [...] catheter which were unsuccessful.------ 0 05/16/24 CC: 72-fpbz-lfu-male returns to clinic for follow up ER ([facility]) visit on 04/29/24 for increased abdominal discomfort [...] leakage. The patient has not seen a adult neuropsychologist in years but has been managed by Renea Pagan with Dr. Loo in [facility]. 04/25/24 78-wtwl-ygi-male present to clinic for voiding trial with cystoscopy and prostate ultrasound. Voiding trial was attempted today and patient began voiding after only 60 cc was placed in the bladder.He remains on tamsulosin and reports that he discontinued the oxybutynin as instructed at his 1st visit. 04/18/25801687-yskg-wcl -male present to clinic as new patient for ER ([facility]) visit on 04/08/24 decrease urine volume but [...] mucus 3+04/25/24 TRUS volume 93.4 cc04/08/24 CT/w ([facility]) kidneys and ureters: multiple Bosniack 1 renal cystic lesions defined as homogeneous and fluid density (-9 to 20 HU), no septation or calcifications, having rangel smooth and thin, largest cyst measures 1.1cm, no hydronephrosis. Urinary bladder unremarkable Enlarge prostate 6.8x4.9x6.7cm Cr 0.90, GFR 81, Hgb 15.7, Hct 46.702 UA pH 6.0, SG >=1.030, Blood-trace, 4 Cr 1.15, GFR 64, Hgb 16.3, Hct 47.29671 PSA 9.4 Lizzie Andrews, CELSO, [address], [place], [address], [facility] - [place] & [place] 07/08/2024 14:17:41
--- OUTSIDE RECORDS SUMMARY | 2024-07-26 20:08 | XMS_ITS | Clinical Summary ---
Author Organization [facility] Address [address] [place] [address] Care Team Providers Care Professional Skateboarder Name Role Phone Stefania Gilliland GRAB JACK MAN Primary Care Provider [phone] Allergies No known active allergies Medications ezetimibe-simva statin (Vytorin) 10-40 MG tablet Take 1 tablet by mouth every night. 7 Active tamsulosin (Flomax) 0.4 MG 24 hr capsule Take 1 capsule (0.4 mg) by mouth every night. 2 Active traZODone (Desyrel) 100 MG tablet Take 1 tablet (100 mg) by mouth every night. 2 Active levocetirizine (Xyzal) 5 MG tablet Take 1 tablet (5 mg) by mouth 1 (one) time each day in the evening. Active Fluticasone-Ume clidin-Vilant (Trelegy Ellipta) 100-62.5-25 MCG/ACT aerosol powder Inhale 1 puff 1 (one) time each day. Active lansoprazole (Prevacid) [address] capsule Take 1 capsule (30 mg) by mouth 1 (one) time each day before breakfast. Do not crush or chew. Active DULoxetine (Cymbalta) [address] capsule Take 1 capsule (60 mg) by mouth 1 (one) time each day. Do not crush or chew. 4 Active fluticasone (Flonase) 50 MCG/ACT nasal spray Administer 1 spray into each nostril 1 (one) time each day. Shake gently. Before first use, prime pump. After use, clean tip and replace cap. Active famotidine (Pepcid) 20 MG tablet Take 1 tablet (20 mg) by mouth 2 (two) times a day. Active calcium carbonate (Tums) 500 MG chewable tablet Chew 1 tablet (500 mg) every 4 (four) hours if needed for heartburn or indigestion. Active atorvastatin (Lipitor) 20 MG tablet Take 1 tablet (20 mg) by mouth every night. 30 tablet 4 Active NIFEdipine XL (Procardia XL) 30 MG 24 hr tablet Take 1 tablet (30 mg) by mouth 1 (one) time each day. Do not crush, chew, or split. 4 Active metoprolol tartrate (Lopressor) 50 MG tablet Take 1 tablet (50 mg) by mouth 2 (two) times a day. Decrease to 25mg twice daily when BP < 100/60ds 4 Active apixaban (Eliquis) 5 MG tablet Take 1 tablet (5 mg) by mouth 2 (two) times a day. 60 tablet 4 Active gabapentin (Neurontin) 100 MG capsule Take 2 capsules (200 mg) by mouth 3 (three) times a day. 180 capsule 4 Active Active Problems Problem Noted Date Diagnosed Date [...] symptoms 03/17/2023 Coronary artery disease invo lving [place] coronary artery of [place] heart without angina pectoris 03/17/2023 Abdominal aortic aneurysm 03/17/2023 Obesity (BMI 30.0-34.9) 03/17/2023 CKD (chronic kidney disease) 02/14/2023 Overview (02/24/2023): - Cr 1.03 on admit - WNL S/P AKA (above knee amputation), right Overview (03/24/2023): - 02/08/23: Right above knee amputation and right groin 03/23: [place] removed per vascular in ED Class 2 [...] tartrate 75 mg TID - Continue nifedipine Resolved Problems Problem Noted Date Diagnosed Date [...] units PRBC on 01/17/23, 1 unit on 11/29/23, and 1 unit PRBC on 01/22/23 - [...] Xarelto & Plavix 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 023 Immunizations Immunization Administration Dates Next Due Influenza Vaccine, Quadrivalent, Adjuvanted 10/21,12/27/2021 TD (adult), 2 Lf tetanus tox oid, preservative free, adsorbed 04/30/1996 Tdap 03/22/2023 Family History Medical History Relation Name Comments Cardiac disorder Father Hyperlipidemia Father Colon cancer Mother Relation Name Status Comments Father Mother Social History Tobacco Use Types Packs/Day Years Used Date Smoking Tobacco: Former Cigarettes 1 50 0 11/17/1965 - 11/18/2015 Smokeless Tobacco: Never Tobacco Cessation:Counseling Given: Not Answered Alcohol Use Standard Drinks/Week Comments Not Currently 0 (1 standard drink = 0.6 oz pur e alcohol) Humiliation, Afraid, Rape, and Kick questionnair e Answer Date Recorded Within the last year, have y ou been afraid of your partner or ex-partner? Patient declined 05/23/2023 Within the last year, have y ou been humiliated or emotionally abused in other ways by your partner or ex-partner? Patient declined 05/23/2023 Within the last year, have y ou been kicked, hit, slapped, or otherwise physically hurt by your partner or ex-partner? Patient declined 05/23/2023 Within the last year, have y ou been raped or forced to have any kind of sexual activity by your partner or ex-partner? Patient declined 05/23/2023 Overall Financial Resource Strain (CARDIA) Answe r Date Recorded How hard is it for you to pa y for the very basics like food, housing, medical care, and heating? Not hard at all 03/23/2023 PHQ-2 Answer Date Recorded Patient Health Questionnaire-2 Score 0 03/17/2023 Hunger Vital Sign Answer Date Recorded Within the past 12 months, y ou worried that your food would run out before you got the money to buy more. Never true 05/23/19 24 Within the past 12 months, t he food you bought just didn't last and you didn't have money to get more. Never true 05/23/2023 PRAPARE - Transportation Answer Date Re corded In the past 12 months, has l ack of transportation kept you from medical appointments or from getting medications? No 03/2023 In the past 12 months, has l ack of transportation kept you from meetings, work, or from getting things needed for daily living? No 05/23/2023 Housing Stability Vital Sign Answer Brandan e Recorded In the last 12 months, was t here a time when you were not able to pay the mortgage or rent on time? No 05/23/2023 In the last 12 months, how many places have you lived? 2 05/23/2023 In the last 12 months, was t here a time when you did not have a steady place to sleep or slept in a correction (including now)? No 05/23/2023 CAGE ASSESSMENT Answer Date Recorded Cage unable to access Not on file 01/29/2023 Cage max number of drinks Not on file 2022 Cage Beverages a week Not on file 01/29/2023 Have you ever felt you should CUT down on your d rinking? 0 01/29/2023 Have you been ANNOYED by people criticizing your drinking? 0 01/29/2023 Have you felt GUILTY about your drinking? 0 01/29/2023 Have you had a drink first t hugo in the morning (EYE-BARBER INSTRUCTOR) to steady your nerves or to get rid of a hangover? 0 01/29/2023 CAGE Questionnaire Score 0 023 Utilities Answer Date Recorded In the past 12 months has th e electric, gas, oil, or water company threatened to shut off services in your home? No 05/23/2023 PHQ-2A Answer Date Recorded Patient Health Questionnaire-2 Score 0 12/14/2022 Sex and Gender Information Value Date Recorded Sex Assigned at Male 02/11/2023 12:45 AM EST Legal Sex Male 7:05 PM EDT Gender Identity Male 02/11/2023 12:45 AM EST Sexual Orientation Straight 02/11/2023 12 :45 AM EST Last Filed Vital Signs Vital Sign Reading Time Taken Comments Blood Pressure 108/56 06/05/2023 11:52 AM EDT Pulse 70 06/05/2023 11:52 AM EDT Temperature 36.3 C (97.3 F) 06/05/2023 11:52 AM EDT Respiratory Rate 16 06/05/2023 11:5 2 AM EDT Oxygen Saturation 99% 06/05/2023 11: 52 AM EDT Inhaled Oxygen Concentration - - Weight 64.8 kg (142 lb 13.7 oz) 024 11:51 AM EDT Height 165.1 cm (5' 5 ) 05/25/2023 11:5 1 AM EDT Body Mass Index 23.77 05/25/2023 11:51 AM EDT Plan of Treatment Health Maintenance Due Date Last Done Comments [facility]-Medicare Annual Wellness (AWV) 1942 [facility]-Infant/Child/Adol SDOH Screenings 1942 [facility]- SDOH Screenings 1960 [facility]-Adult SDOH Screenings 1960 [facility]-Pneumococcal Vaccine: 50+ Years (1 of 2 - PCV) 1961 [facility]-Zoster Vaccines (1 of 2) 1961 [facility]-RSV Vaccine: 60+ Years or (1 - 1-dose 75+ series) 2017 [facility]-VPGAN-32 Vaccine ( season) 2023 10/14/2022, 12/27/2021, 08/30/2021, Additional history exists [facility]-Depression Screening 03/17/2024 03/17/2023 [facility]-Influenza Vaccine (Season Ended) 2024 11/07/2022, 12/27/2021 [facility]-DTaP,Tdap,and Td Vaccines (2 - Td or Tdap) 03/22/2033 03/22/2023, 04/30/1996 [facility]-Obesity Intervention Completed 024, 04/27/2023, 04/14/2023, Additional history exists HPV Vaccines Aged Out No longer eligi ble based on patient's age to complete this topic [facility]-HIB Vaccines Aged Out No longer e ligible based on patient's age to complete this topic [facility]-Hepatitis A Vaccines Aged Out No longer eligible based on patient's age to complete this topic [facility]-IPV Vaccines Aged Out No longer e ligible based on patient's age to complete this topic [facility]-Rotavirus Vaccines Aged Out No lo nger eligible based on patient's age to complete this topic Medical Devices Implanted Type Area An/Syq 13 Nav/C2 Operator Device Identifier Shelf Expiration Date Model / Serial / Lot Graft Excluder Trnk Ipsilat 15f 14.5cm/12mm/23mm - [id number] Implanted:Qty: 1 on 01/17/2023 by [facility] Ann [facility][id number] 10/23/2025 [id number] / [id number] / [id number] Coil Vascular [id number] - [id number] Implanted:Qty: 1 on 01/17/2023 by Jamey Ann MD at [facility]-[id number] 09/20/2027 [id number] / / [id number] Coil Vascular [id number] - [id number] Implanted:Qty: 1 on 01/17/2023 by Jamey Ann MD at [facility]-[id number] 09/20/2027 [id number] / / [id number] Component Contralateral Leg 12mm 12cm - [id number] Implanted:Qty: 1 on 01/17/2023 by Jamey Ann MD at [facility] [employer]-[id number] 4 09/28/2025 [id number] / [id number] / [id number] Component Contralateral Leg 12mm 10cm - [id number] Implanted:Qty: 1 on 01/17/2023 by Jamey Ann MD at [facility] [employer]-[id number] 4 08/27/2025 [id number] / [id number] / [id number] Stent Graft Iliac [id number] Lviabahnbx - [id number] Implanted:Qty: 1 on 01/17/2023 by Jamey Ann MD at [facility] [employer]-[id number] 4 10/30/2025 [id number] / [id number] / [id number] Vascuguard 8 X 8 - [id number] Implanted:Qty: 1 on 01/17/2023 by Jamey Ann MD at [facility] [employer]-[id number] 08/24/2023 [id number] / / [id number] Vascuguard 8 X 8 - [id number] Implanted:Qty: 1 on 01/17/2023 by Jamey Ann MD at [facility] Right: [employer]-[id number] 7 08/24/2023 [id number] / / [id number] Additional Health Concerns Infection Onset Date 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 05/19/2023 Insurance MEDICARE ANTHEM Advance Directives Documents on File Type Date Recorded Patient Contract Administration Manager Expl anation Power of E Merchant 06/06/2023 8:37 AM Power of E Merchant 05/25/2023 12:13 PM Power of E Merchant 05/24/2023 2:25 PM Advance Directives and Livin g Will 03/22/2023 6:53 PM Power of E Merchant 03/22/2023 6:53 PM * DNR/DNI (Latest Code Status on File) Date Activated Date Inactivated Comments 05/19/2023 9:19 PM 06/05/2023 9:01 PM son Ti an d daughter Marce (POA) also agree patient's decision Question Answer Comments DNR determined on/before admission date? Yes Patient has decision-making capacity? Yes * DNR/DNI Date Activated Date Inactivated Comments 03/22/2023 9:39 PM 03/25/2023 2:39 PM Question Answer Comments DNR determined on/before admission date? Yes Patient has decision-making capacity? Yes * Full Code Date Activated Date Inactivated Comments 03/22/2023 9:52 AM 03/22/2023 9:39 PM Question Answer Comments Patient has decision-making capacity? Yes * DNR/DNI Date Activated Date Inactivated Comments 02/04/2023 2:49 PM 02/24/2023 12:07 PM Question Answer Comments DNR determined on/before admission date? No Patient has decision-making capacity? Yes * Full Code Date Activated Date Inactivated Comments 01/29/2023 3:23 PM 02/04/2023 2:49 PM Question Answer Comments Patient has decision-making capacity? Yes Care Teams Professional Skateboarder Relationship Specialty Start Date End Date Setfania Gilliland APRN [address] [facility] [address] [place] [address] PCP - General 01/20/23
--- NOTE | 2024-07-26 20:32 | EXP.HP ---
History of Present Illness *Admission Date: 07/26/24 *Reason for visit:: LifeVest shock *History of present illness: 83-year-old man ischemic cardiomyopathy currently wearing a LifeVest comes to the ER following shock. States he was sitting at dinner when he felt a sudden massive shock coming from his device. He did not have any prodromal symptoms prior to the delivery of the shock. Denies any chest pain, shortness of breath, lightheadedness or dizziness. Denies palpitations. Only complaint right now is paresthesias going down his leg. EKG in ER demonstrates A-fib RVR with isolated PVCs versus Ally's Recently had a urology TURP. Reportedly had pulseless VT while on the table which subsequently resulted in him getting his LifeVest on discharge. He had his LifeVest for about a day before becoming shocked. Called LifeVest rep, documents were sent. Heart rates greater than 200, consistent with VT Left heart cath Recently underwent a coronary disease at that time. Noted to have ejection fraction 35% prior to discharge and was given a LifeVest in addition to medical therapy for heart failure. It was this LifeVest that resulted in his shock. History independently obtained. Diagnostics interpreted independently. Prior records reviewed. Discussed case with ER physician [facility] Disclaimer: The information contained in this section may have been updated after the patient was seen, as this information can be updated by other users. Medical History Atypical angina Subdural hemorrhage Swelling of lower leg Dehiscence of operative wound Obesity (BMI 30.0-34.9) Stenosis of carotid artery Left carotid bruit BPH without obstruction/lower urinary tract symptoms BPH (benign prostatic hyperplasia) CALEB (renal artery stenosis) HFrEF (heart failure with reduced ejection fraction) CHF (congestive heart failure) Dyspnea HLD (hyperlipidemia) HTN (hypertension) CAD (coronary artery disease) Abdominal aortic aneurysm CKD (chronic kidney disease) Atrial fibrillation Surgical History H/O fasciotomy Family History Other No significant family history Social History Smoking Status: Current every day smoker tobacco type: cigarettes second hand exposure: No alcohol intake: never substance use type: denies use current occupational status: retired Travel in the last 8 weeks?: Inside the [place] household members: spouse housing: house caffeine: Yes Have you lived/traveled outside [place] in past 30 days?: No Contact w/someone who lives/traveled outside US past 30 days?: No Exposure to someone with infectious disease in past 14 days?: No Do you have a fever (greater than 100.4 F or 38 C)?: No Have you tested positive for COVID-19?: No Exposed to someone with COVID-19 in past 14 days?: No Do you have a sore throat?: No Do you have a cough?: No Do you have any weakness?: No Do you have any diarrhea?: No Are you experiencing any unusual bleeding?: No Do you have any muscle aches/pain?: No Do you have any abdominal pain?: No Are you experiencing loss of taste or smell?: No Other Medical History Have you received the Flu Vaccine for this season: No Have you received the Pneumonia Vaccine: Yes Review of Systems Review of Systems Review of systems:: pertinent systems reviewed and negative unless documented below Meds Home Medications and Allergies Home Medications ?Medication ?Instructions ?Recorded ?Confirmed ?Type lansoprazole 30 mg capsule,delayed 30 mg PO DAILY 09/27/22 07/03/24 History release levocetirizine 5 mg tablet 5 mg PO DAILY 09/27/22 07/03/24 History trazodone 100 mg tablet 100 mg PO HS 09/27/22 07/03/24 History fluticasone fur. 100 mcg-umeclid 1 inh inhalation DAILY 01/29/23 07/03/24 History 62.5 mcg-vilant 25 mcg inhalat.powder (Trelegy Ellipta) apixaban 5 mg tablet (Eliquis) 5 mg PO BID 03/28/24 07/03/24 History duloxetine 60 mg capsule,delayed 60 mg PO DAILY 03/28/24 07/03/24 History release famotidine 20 mg tablet 20 mg PO BID 03/28/24 07/03/24 History fluticasone propionate 50 1 spray intranasal DAILY 03/28/24 07/03/24 History mcg/actuation nasal spray,suspension tamsulosin 0.4 mg capsule 0.4 mg PO HS 03/28/24 07/03/24 History metoprolol tartrate 50 mg tablet 50 mg PO BID 03/29/24 07/03/24 History dutasteride 0.5 mg capsule 0.5 mg PO DAILY 04/29/24 07/03/24 History clopidogrel 75 mg tablet 75 mg PO DAILY 30 days #30 tabs 05/21/24 07/03/24 Rx empagliflozin 10 mg tablet 10 mg PO DAILY 30 days #30 tabs 05/21/24 07/03/24 Rx (Jardiance) spironolactone 25 mg tablet 25 mg PO DAILY 30 days #30 tabs 05/21/24 07/03/24 Rx sacubitril 24 mg-valsartan 26 mg 1 tab PO BID #60 tabs 05/27/24 07/03/24 Rx tablet (Entresto) oxybutynin chloride 5 mg tablet 5 mg PO BID PRN bladder spasms #60 06/01/24 07/03/24 Rx tabs atorvastatin 80 mg tablet 80 mg PO HS 06/29/24 07/03/24 History memantine 5 mg tablet 5 mg PO BID 07/03/24 07/03/24 History New Prescriptions to Start Prescriptions: Allergies Allergy/AdvReac Type Severity Reaction Status Date / Time No Known Allergies Allergy Verified 07/03/24 10:33 Exam Constitutional Constitutional: no acute distress *Routine HEENT Exam Head: Present normocephalic Eye: Present EOMI and PERRL ENT: Present mucous membranes moist *Routine Neck Exam Neck: Present supple; Absent lymphadenopathy *Routine Respiratory Exam Respiratory: Present CTA bilaterally *Routine Cardiovascular Exam Cardiovascular: Present tachycardia and irregularly irregular *Routine Abdominal Exam Abdominal: Present soft and normoactive bowel sounds; Absent tenderness *Routine Rectal Exam Rectal:: deferred *Routine Genitalia Exam Genitalia:: deferred *Routine Extremities Exam Extremities: Present cyanosis Comments: Right AKA *Routine Skin Exam Skin: Present warm; Absent rash *Routine Neurological Exam Neurological: Present alert and oriented X3 Assessment and Plan *Assessment and plan (1) CAD (coronary artery disease): Status: Chronic Qualifiers: Associated angina: without angina Coronary Disease-Associated Artery/Lesion type: citizen [place] artery [place] vs. transplanted heart: citizen [place] heart Qualified Code(s): I25.10 - Atherosclerotic heart disease of citizen [place] coronary artery without angina pectoris Category: Medical Code(s): I25.10 - Atherosclerotic heart disease of citizen [place] coronary artery without angina pectoris (2) HTN (hypertension): Status: Chronic Qualifiers: Hypertension type: essential hypertension Qualified Code(s): I10 - Essential (primary) hypertension Category: Medical Code(s): I10 - Essential (primary) hypertension (3) HLD (hyperlipidemia): Status: Chronic Qualifiers: Hyperlipidemia type: mixed hyperlipidemia Qualified Code(s): E78.2 - Mixed hyperlipidemia Category: Medical Code(s): E78.5 - Hyperlipidemia, unspecified (4) HFrEF (heart failure with reduced ejection fraction): Status: Acute Category: Medical Code(s): I50.20 - Unspecified systolic (congestive) heart failure (5) BPH without obstruction/lower urinary tract symptoms: Status: Acute Category: Medical Code(s): N40.0 - Benign prostatic hyperplasia without lower urinary tract symptoms (6) Stenosis of carotid artery: Status: Acute Qualifiers: Laterality: bilateral Qualified Code(s): I65.23 - Occlusion and stenosis of bilateral carotid arteries Category: Medical Code(s): I65.29 - Occlusion and stenosis of unspecified carotid artery (7) PAD (peripheral artery disease): Status: Chronic Category: Medical Code(s): I73.9 - Peripheral vascular disease, unspecified Plan 83-year-old man with ischemic cardiomyopathy, CABG, recent PCI x 2 SVG to RCA and D1 presenting after a LifeVest shock. Device interrogated, interpreted as an appropriate shock due to ventricular tachycardia LifeVest shock, appropriate Ventricular tachycardia - Amiodarone bolus and drip - Cardiology consult - Repeat echo - ICD Monday for secondary prevention Atrial fibrillation, chronic -Beta-natalie -DOAC Heart failure reduced ejection fraction Ischemic cardiomyopathy -Switch beta-natalie to Toprol -Jardiance -Spironolactone -Entresto -Lasix -Increase to goal dosing Anemia - Iron panel - If iron deficient give IV iron for improvement of heart failure symptoms Coronary artery disease CABG PCI to SVG x 2 RCA and D1 - Dual antiplatelet therapy - High intensity statin - LDL goal 55 - Add Zetia if not at goal
--- NOTE | 2024-07-26 20:40 | XR_ITS ---
PROCEDURE INFORMATION: Exam: XR Chest Exam date and time: 07/26/2024 8:42 PM Age: 83 years old Clinical indication: Dyspnea TECHNIQUE: Imaging protocol: Radiologic exam of the chest. Views: 1 view. COMPARISON: CT CHEST W CON 06/29/2024 12:21 AM FINDINGS: Lungs: Unremarkable. No consolidation allowing for overlying cardiac life vest. Pleural spaces: Unremarkable. No pleural effusion. No pneumothorax. Heart/Mediastinum: Unremarkable. No cardiomegaly. Open heart changes. Bones/joints: Unremarkable. IMPRESSION: Stable chest x-ray with no acute disease.
--- NOTE | 2024-07-26 20:41 | ED_ITS ---
Discharge Plan Disposition Patient Disposition: Admitted Prescriptions Prescriptions: No Action Entresto 24-26 mg tablet 1 tab PO BID Qty: 60 5RF memantine 5 mg tablet 5 mg PO BID trazodone 100 mg tablet 100 mg PO HS lansoprazole 30 mg capsule,delayed release(DR/EC) 30 mg PO DAILY levocetirizine 5 mg tablet 5 mg PO DAILY Trelegy Ellipta 100-62.5-25 mcg Blister With Device 1 inh INHALATION DAILY famotidine 20 mg tablet 20 mg PO BID duloxetine 60 mg capsule,delayed release(DR/EC) 60 mg PO DAILY Eliquis 5 mg tablet 5 mg PO BID tamsulosin 0.4 mg capsule 0.4 mg PO HS fluticasone propionate 50 mcg/actuation spray,suspension 1 spray INTRANASAL DAILY Rx Instructions: 1 spray in both nostrils metoprolol tartrate 50 mg Tablet 50 mg PO BID clopidogrel 75 mg Tablet 75 mg PO DAILY 30 Days Qty: 30 0RF spironolactone 25 mg Tablet 25 mg PO DAILY 30 Days Qty: 30 0RF Jardiance 10 mg Tablet 10 mg PO DAILY 30 Days Qty: 30 0RF oxybutynin chloride 5 mg tablet 5 mg PO BID PRN (Reason: bladder spasms) Qty: 60 0RF dutasteride 0.5 mg Capsule 0.5 mg PO DAILY atorvastatin 80 mg tablet 80 mg PO HS Referrals Follow up/Referrals: Stefania Pagan APRN [Primary Care Provider, Medical] - See instructions Clinical Impressions Clinical Impression: Defibrillator discharge, Heart failure with mildly reduced ejection fraction Print Language Print Language: Arabic Discharge ED Provider: Suman Leon General Adult HPI General Chief complaint: Chest Pain Stated complaint: shocked by life vest Time Seen by Provider: 07/26/24 20:27 History of Present Illness HPI narrative: Patient is an 83-year-old male presenting today after his life vest shocked him. States he was recently in the hospital for a TURP went into V. tach and had a pulseless period of time while in the operating room went to the PACU was given epinephrine and started on pressors and was hypotensive. He was diagnosed with heart failure with reduced ejection fraction here with cardiology with ejection fraction of 40 to 45% but was told at the hospital recently [place] was closer to 30-35%. Therefore a LifeVest was started on the patient. The patient is actually headed on a few hours and states he was sitting at the table in his normal state of health that he felt pretty good but it shocked him. Related Data Home Medications ?Medication ?Instructions ?Recorded ?Confirmed lansoprazole 30 mg capsule,delayed 30 mg PO DAILY 10/1207/03/24 release levocetirizine 5 mg tablet 5 mg PO DAILY 09/27/2206/20 trazodone 100 mg tablet 100 mg PO HS 09/27/22 fluticasone fur. 100 mcg-umeclid 1 inh inhalation DL Y 01/29/23 07/03/24 62.5 mcg-vilant 25 mcg inhalat.powder (Trelegy Ellipta) apixaban 5 mg tablet (Eliquis) 5 mg PO BID 03/28/24 duloxetine 60 mg capsule,delayed 60 mg PO DAILY 07/03/24 release famotidine 20 mg tablet 20 mg PO BID 03/28/24 fluticasone propionate 50 1 spray intranasal DAILY 08/1407/03/24 mcg/actuation nasal spray,suspension tamsulosin 0.4 mg capsule 0.4 mg PO HS 03/28/24 metoprolol tartrate 50 mg tablet 50 mg PO BID 03/29/24 07/03/24 dutasteride 0.5 mg capsule 0.5 mg PO DAILY 04/29/24 atorvastatin 80 mg tablet 80 mg PO HS 06/29/24 5 memantine 5 mg tablet 5 mg PO BID 07/03/24 5 Previous Rx's ?Medication ?Instructions ?Recorded clopidogrel 75 mg tablet 75 mg PO DAILY 30 days #30 t abs 05/21/24 empagliflozin 10 mg tablet 10 mg PO DAILY 30 days #30 tabs 05/21/24 (Jardiance) spironolactone 25 mg tablet 25 mg PO DAILY 30 days #30 tabs 05/21/24 sacubitril 24 mg-valsartan 26 mg 1 tab PO BID #60 tabs 05/27/24 tablet (Entresto) oxybutynin chloride 5 mg tablet 5 mg PO BID PRN bladde r spasms #60 06/01/24 tabs Allergies Allergy/AdvReac Type Severity Reaction Status Date / Time No Known Allergies Allergy Verified 07/03/24 10:33 [facility] Disclaimer: The information contained in this section may have been updated after the patient was seen, as this information can be updated by other users. Medical History Atypical angina Subdural hemorrhage Swelling of lower leg Dehiscence of operative wound Obesity (BMI 30.0-34.9) Stenosis of carotid artery Left carotid bruit BPH without obstruction/lower urinary tract symptoms BPH (benign prostatic hyperplasia) CALEB (renal artery stenosis) HFrEF (heart failure with reduced ejection fraction) CHF (congestive heart failure) Dyspnea HLD (hyperlipidemia) HTN (hypertension) CAD (coronary artery disease) Abdominal aortic aneurysm CKD (chronic kidney disease) Atrial fibrillation Surgical History H/O fasciotomy Family History Other No significant family history Social History Smoking Status: Current every day smoker tobacco type: cigarettes second hand exposure: No alcohol intake: never substance use type: denies use current occupational status: retired Travel in the last 8 weeks?: Inside the [place] household members: spouse housing: house caffeine: Yes Have you lived/traveled outside US in past 30 days?: No Contact w/someone who lives/traveled outside US past 30 days?: No Exposure to someone with infectious disease in past 14 days?: No Do you have a fever (greater than 100.4 F or 38 C)?: No Have you tested positive for COVID-19?: No Exposed to someone with COVID-19 in past 14 days?: No Do you have a sore throat?: No Do you have a cough?: No Do you have any weakness?: No Do you have any diarrhea?: No Are you experiencing any unusual bleeding?: No Do you have any muscle aches/pain?: No Do you have any abdominal pain?: No Are you experiencing loss of taste or smell?: No Other Medical History Have you received the Flu Vaccine for this season: No Have you received the Pneumonia Vaccine: Yes ROS Obtained: Yes All systems reviewed & no additional complaints except as documented Physical Exam General General appearance: alert and in no apparent distress Respiratory Respiratory exam: Present normal lung sounds bilaterally and respiratory distress Cardiovascular Cardiovascular exam: Present regular rate and irregular rhythm Neurological Exam Neurological exam: Present alert and oriented X3 Medical Decision Making Medical Records Screening: Per USPSTF and CDC recommendations, given the prevalence of disease in our region, it is our hospital?s policy to screen for HIV and viral Hepatitis for all patients aged 18 and over and those with ongoing risk factors. Anjel Inquiry Pt receiving controlled substance: No Vital Signs: 07/26/24 20:14 07/26/24 20:15 07/26/24 20:30 Temperature Temperature Source Pulse Rate 60 56 L 59 L Pulse Rate [Left] Respiratory Rate 27 H 23 25 H Blood Pressure [Right Arm] Blood Pressure Mean [Right Arm] Blood Pressure Source [Right Arm] Blood Pressure Position [Right Arm] 02 Sat by Pulse Oximetry 97 96 96 Oxygen Delivery Method 07/26/24 20:45 07/26/24 20:51 07/26/24 21:00 Temperature 97.9 F Temperature Source Oral Pulse Rate 64 62 Pulse Rate [Left] 98 H Respiratory Rate 35 H 16 37 H Blood Pressure [Right Arm] 132/79 Blood Pressure Mean [Right Arm] 96 Blood Pressure Source [Right Arm] Automatic Cuff Blood Pressure Position [Right Arm] Sitting 02 Sat by Pulse Oximetry 96 97 96 Oxygen Delivery Method Room Air 07/26/24 21:03 Temperature Temperature Source Pulse Rate 95 H Pulse Rate [Left] Respiratory Rate Blood Pressure [Right Arm] Blood Pressure Mean [Right Arm] Blood Pressure Source [Right Arm] Blood Pressure Position [Right Arm] 02 Sat by Pulse Oximetry Oxygen Delivery Method Lab Data Lab results reviewed: Yes I reviewed the patient's lab results. Lab Results 07/26/24 20:55: WBC 7.4, RBC 3.79 L, Hgb 11.8 L, Hct 35.5 L, MCV 93.7, MCH 31.1, MCHC 33.2, RDW 16.0, Plt Count 219, MPV 10.1, Neut % (Auto) 80.8 H, Lymph % (Auto) 11.9, [place] % (Auto) 5.7, Eos % (Auto) 0.8, Baso % (Auto) 0.1, Neut # (Auto) 6.0, Lymph # (Auto) 0.9, [place] # (Auto) 0.4, Eos # (Auto) 0.1, Baso # (Auto) 0.0, PT 12.1, INR 1.10, APTT 31.0 H, Sodium 133 L, Potassium 3.7, Chloride 102, Carbon Dioxide 29, Anion Gap 5.7, BUN 6 L, Creatinine 0.70, Estimated Creat Clear 48, Estimated GFR 108, Est GFR ( Amer) 131, Glucose 134 H, Calcium 8.5, Magnesium 1.9, Total Bilirubin 1.0, AST 16 L, ALT 13, Alkaline Phosphatase 107, Troponin I 0.01, Total Protein 5.9 L, Albumin 3.2 L, Globulin 2.7, Albumin/Globulin Ratio 1.2 07/26/24 20:55 07/26/24 20:55 Orders (Tests/Meds): ED MEDICATIONS Generic Name Dose Route Start Last Admin Trade Name Freq PRN Reason Stop Dose Admin Acetaminophen 650 mg 07/26/24 21:29 Acetaminophen 325mg Tab PO 08/25/24 21:28 Q4HP PRN Fever or Mild Pain (1-3) Hydrocodone Bitart/Acetaminophen 1 tab 07/26/24 21:29 Hydrocodone/Apap 5/325 Mg Tablet PO 08/25/24 21:28 Q4HP PRN Mild to Moderate Pain (1-6) Apixaban 5 mg 07/26/24 21:45 Apixaban 5mg Tablet PO 08/25/24 21:44 BID LA Atorvastatin Calcium 80 mg 07/27/24 21:00 Atorvastatin 40mg Tablet PO 08/26/24 20:59 HS LA Clopidogrel Bisulfate 75 mg 07/27/24 09:00 Clopidogrel 75mg Tab PO 08/26/24 08:59 DAILY LA Empagliflozin 10 mg 07/27/24 09:00 Empagliflozin 10mg Tablet PO 08/26/24 08:59 DAILY LA Fluticasone/Umeclidinium/Vilanterol 1 puff 07/27/24 09:00 Fluticasone/Umeclidin/Vilanter 100/62.5/25mcg Inhaler IH 08/26/24 08:59 DAILY LA Magnesium Sulfate 2 gm in 50 mls @ 50 mls/hr 07/26/24 21:25 Magnesium Sulfate 2gm/50ml Premix IV 07/26/24 22:24 ONCE ONE Amiodarone HCl 150 mg/ 103 mls @ 618 mls/hr 07/26/24 21:32 Dextrose IV 07/26/24 21:41 ONCE ONE Protocol Metoprolol Tartrate 50 mg 07/26/24 21:45 Metoprolol Tartrate 50mg Tablet PO 08/25/24 21:44 BID LA Morphine Sulfate 2 mg 07/26/24 21:29 Morphine 2mg/Ml Syringe IV 08/25/24 21:28 Q2HP PRN Severe Pain (7-10) Non-Formulary Medication 100 mg 07/27/24 21:00 Trazodone PO 08/26/24 20:59 HS COUNT INCLUDES THE [facility] Non-Formulary Medication 60 mg 07/27/24 09:00 Duloxetine PO 08/26/24 08:59 DAILY COUNT INCLUDES THE [facility] Non-Formulary Medication 5 mg 07/27/24 09:00 Memantine PO 08/26/24 08:59 BID COUNT INCLUDES THE [facility] Ondansetron HCl 4 mg 07/26/24 21:29 Ondansetron 4mg/2ml Vial IV 08/25/24 21:28 Q8HP PRN Nausea Oxybutynin Chloride 5 mg 07/26/24 21:34 Oxybutynin 5mg Tab PO 08/25/24 21:33 BID PRN bladder spasms Pantoprazole Sodium 40 mg 07/26/24 21:29 Pantoprazole 40mg Tablet PO 08/26/24 20:59 HS PRN gerd Sacubitril/Valsartan 1 each 07/26/24 21:45 Sacubitril/Valsartan 24-26mg Tablet PO 08/25/24 21:44 BID COUNT INCLUDES THE [facility] Spironolactone 25 mg 07/27/24 09:00 Spironolactone 25mg Tablet PO 08/26/24 08:59 DAILY COUNT INCLUDES THE [facility] Tamsulosin HCl 0.4 mg 07/27/24 21:00 Tamsulosin 0.4mg Capsule PO 08/26/24 20:59 HS COUNT INCLUDES THE [facility] Discontinued Medications Generic Name Dose Route Start Last Admin Trade Name Freq PRN Reason Stop Dose Admin Potassium Chloride 40 meq 07/26/24 21:25 Potassium Chloride 20meq Tab PO 07/26/24 21:26 ONCE ONE ORDERS Category Date Time Status Consult to Cardiology [CONS] Routine Cons 07/26/24 21:33 Active Consult to Case Management [CONS] Routine Cons 07/26/24 21:29 Active CXR --portable [XR chest portable] Stat Exams 07/26/24 20:40 Taken CBC w/Auto Diff [Complete Blood Count Auto Diff] Stat Lab 07/26/24 20:55 Completed CMP [Comprehensive Metabolic Panel] Stat Lab 07/26/24 20:55 Results Complete Blood Count Auto Diff AMLAB Lab 07/27/24 06:00 Ordered Comprehensive Metabolic Panel AMLAB Lab 07/27/24 06:00 Ordered Magnesium AMLAB Lab 07/27/24 06:00 Ordered Magnesium Stat Lab 07/26/24 20:55 Results PT/PTT Stat Lab 07/26/24 20:55 Completed Phosphorous AMLAB Lab 07/27/24 06:00 Ordered TSH [Thyroid Stimulating Hormone] Stat Lab 07/26/24 20:55 Results Trop I [Troponin I] Stat Lab 07/26/24 20:55 Results Troponin I Q3H Lab 07/26/24 23:45 Ordered Troponin I Q3H Lab 07/27/24 02:45 Ordered 12-lead EKG Request [ECG Request] Stat Y 07/26/24 20:20 Ordered CA echo doppler complete Routine Y 07/26/24 21:33 Ordered Medical Decision Narrative: Patient with above history and physical recently undergoing a TURP and had pulseless V. tach diagnosed with heart failure with reduced ejection fraction currently has a LifeVest on that shocked him just prior to arrival. It is a [employer] device and we will contact the rep to have this device interrogated. Additionally get basic electrolytes TSH troponin etc. Patient is very stable at the moment. EKG was performed I personally interpreted which shows a ventricular rate of 106 does show what appears to be A-fib but has a poor baseline intermittent junctional rhythm send PVCs noted no definitive or obvious ischemic signs from an acute standpoint. Patient will definitely need to be admitted for observation at a minimum to be evaluated further by her cardiology team. Reassessments [phone] patient remains very stable has had some frequent PVCs on the monitor but no runs of V. tach to my knowledge. On my reassessment clinically he looks well. Electrolytes replaced to potassium of 4 magnesium of 2. We were able to get some information downloaded and according to the [employer] claims representative to the family patient had a appropriate shock with a heart rate in the 200s presumably V. tach we are awaiting information to be faxed over formally. But we will proceed with a diagnosis of likely V. tach. Dr. Terell Howard is going to initiate amiodarone and admit the patient for further evaluation and management. Likely will get a permanent implantable cardiac device on Monday. Procedures Miscellaneous Procedure Procedure Performed: Ultrasound-guided IV Indication difficult IV access Patient was placed in the supine position was prepped and draped in sterile fashion. 20-gauge 48 mm Angiocath was used with axial and long axis planes on the ultrasound under direct visual guidance. The tip of the needle was observed being inserted directly into the vein itself and catheter was advanced under direct guidance. No significant complications. Critical Care Critical Care Time Critical Care Time: Yes Attestation: On 07/26/24, the high probability of a clinically significant, sudden or life threatening deterioration of the following system(s) required my full and direct attention, intervention and personal management. The time I documented below is in addition to time spent performing reported procedures but includes the following listed in this critical care notation. Total Time Total Critical Care Time: 35
--- NOTE | 2024-07-26 20:51 | PC.NURSE ---
Spoke with AXEL mcknight at via the 1 800 number, spoke with [employer] and she stated that a field operations manager with come out and interrogate it. She also stated that if they have the equipment the will help the family do a download. However, they will be sending a customer relations representative out to replace faulty equipment.
[2024-07-26 21:02] LABS: Basophils % 0.1 % (0.1-2.0); Eosinophils # 0.1 Kmm3 (0.0-0.4); Eosinophils % 0.8 % (0.1-12.0); Hematocrit 35.5 % (42.0-52.0); Hemoglobin 11.8 g/dL (14.1-18.0); Immature Granulocytes # 0.05 10^3uL; Immature Granulocytes % 0.7 %; Lymphocytes # 0.9 K/mm3 (0.7-4.5); Lymphocytes % 11.9 % (10-50); Mean Corpuscular HGB Conc 33.2 g/dL (31.8-35.4); Mean Corpuscular Hemoglobin 31.1 pg (27.0-31.2); Mean Corpuscular Volume 93.7 fl (80-94); Mean Platelet Volume 10.1 fl (7.4-10.4); Monocytes # 0.4 K/mm3 (0.1-1.0); Monocytes % 5.7 % (1.7-9.3); Neutrophils % 80.8 % (37.0-80.0); Nucleated Red Blood Cells # 0 10^3/uL; Nucleated Red Blood Cells % 0 %; Platelet Count 219 K/mm3 (142-424); Red Blood Count 3.79 M/mm3 (4.60-6.20); Red Cell Distribution Width-SD 54.7 fL; White Blood Count 7.4 K/mm3 (4.8-10.8)
[2024-07-26 21:14] LABS: Alanine Aminotransferase 13 U/L (12-78); Albumin Level 3.2 g/dl (3.5-5.0); Albumin/Globulin Ratio 1.2 (1.1-1.8); Alkaline Phosphatase 107 U/L (38-126); Anion Gap 5.7 mEq/L (5-15); Aspartate Amino Transferase 16 U/L (17-59); Blood Urea Nitrogen 6 mg/dl (9-20); Calcium 8.5 mg/dl (8.4-10.2); Carbon Dioxide 29 mmol/L (22.0-30.0); Chloride 102 mmol/L (98-107); Creatinine Clearance Estimated 48 mL/min (50-200); Estimated Glomerular Filt Rate 108 ml/min (>60); GFR (African American) 131 ML/MIN (>60); Globulin 2.7 g/dL (1.3-3.2); Glucose 134 mg/dl (74-100); Magnesium 1.9 mg/dl (1.6-2.3); Potassium 3.7 mmoL/L (3.5-5.1); Sodium 133 mmol/L (136-145); Total Protein,Serum 5.9 g/dl (6.3-8.2)
[2024-07-26 21:16] LABS: Prothrombin Time 12.1 seconds (10.1-12.5)
[2024-07-26 21:26] LABS: Troponin I 0.01 ng/ml (0.00-0.034)
[2024-07-26] MEDS: MAGNESIUM SULFATE IN WATER 2 GM/50 ML PIGGYBACK IV (21:34)
[2024-07-26] MEDS: POTASSIUM CHLORIDE 20MEQ TAB 40 MEQ PO (21:34)
[2024-07-26 21:43] LABS: Thyroid Stimulating Hormone 0.24 uIU/mL (0.465-4.68)
[2024-07-26] MEDS: AMIODARONE HCL 150 MG in DEXTROSE 5 % IN WATER 100 ML 618 MG IV (22:47)
--- NOTE | 2024-07-26 22:54 | PC.NURSE ---
Patient arrived to ICU unit via stretcher @22:30
[2024-07-26 22:59] LABS: POC Glucose,Bedside 120 (70-110)
[2024-07-26] MEDS: AMIODARONE HCL 900 MG in DEXTROSE 5 % IN WATER 500 ML 33.01 MG IV (23:10)
[2024-07-26] MEDS: SACUBITRIL/VALSARTAN 24-26MG TABLET 1 EACH PO (23:13)
[2024-07-26] MEDS: OXYBUTYNIN 5MG TAB 5 MG PO (23:13)
[2024-07-26] MEDS: APIXABAN 5MG TABLET 5 MG PO (23:13)
[2024-07-26] MEDS: MEMANTINE 10MG TABLET 5 MG PO (23:13)
[2024-07-26] MEDS: METOPROLOL TARTRATE 50MG TABLET 50 MG PO (23:13)
--- NOTE | 2024-07-26 23:14 | PC.NURSE ---
Addendum entered by Vicki Brooke RN 07/26/24 23:52: Medication was verified with Terence Chance RN Original Note: when scanning the maintance dose of amiodarone the vials of amiodarone would not scan. 900mg of amiodarone was placed in 500 ml of d5w. Drip was started at 2300 at 33mls/hr (1mg/min)
--- NOTE | 2024-07-26 23:43 | PC.NURSE ---
Pt was discharged from [facility] 07/26/24 with 4 new prescriptions Aspirin low dose 81mg, carvedilol 3.125mg bid, Cefdinir 300mg bid for 3 days, and doxycycline 100 mg bid for 3 days. None of the medications were picked up yet from [facility] pharmacy due to as soon as pt got home from the hospital his life vest shocked him so he came on in to the ER. Pt also has orders from [place] to stop metoprolol 07/27/24. Pt recevied his last dose of metoprolol tonight here at the hospital.
--- NOTE | 2024-07-26 23:49 | PC.NURSE ---
Pt has bruising to right side of race and stitches above right eye from a fall approximately 7 days ago. Pt also has a bruise to is right hip area from the same fall.
[2024-07-27] VITALS (35 sets, daily range): BP systolic 114–163; BP diastolic 47–97; PULSE 46–72; RESP 12–26; TEMP 36.6–37.2; O2SAT 93–98; BMI 25.9
[2024-07-27 00:23] LABS: Troponin I 0.01 ng/ml (0.00-0.034)
--- NOTE | 2024-07-27 00:36 | PC.NURSE ---
pts heart rate on the monitor is showing 70s, but the rhythm is not matching it. Went in and obtained a manual pulse check and pt pulse is 40. Called Tyson Howard and he wants to obtain and EKG and still keep pt on the amio drip.
--- NOTE | 2024-07-27 00:41 | ECG_ITS ---
APPROVED REPORT Exam: Resting ECG HR:69 bpm ECG Measurements Heart Rate 69 AXES AK 157 P 74 QRSd 98 QRS 16 QT 449 T 157 QTc 468 Conclusion SINUS RHYTHM WITH OCCASIONAL VENTRICULAR PREMATURE COMPLEXES WITH OCCASIONAL SUPRAVENTRICULAR PREMATURE COMPLEXES NONSPECIFIC T-WAVE ABNORMALITY PROLONGED QT INTERVAL ABNORMAL ECG UNCONFIRMED REPORT Electronically signed by : Jasbir Gill MD 07/29/2024 08:43:45
--- NOTE | 2024-07-27 00:45 | PC.NURSE ---
obtained EKG, Tyson ceja looked at the EKG and said if pt is not symptomatic then he is okay with pt low heart rate. pt is resting at this time. If pt becomes symptomatic then need to call Tyson ceja back
--- NOTE | 2024-07-27 01:14 | PC.NURSE ---
obtained consent to get medical records from [facility]
[2024-07-27 03:41] LABS: Troponin I 0.02 ng/ml (0.00-0.034)
[2024-07-27 06:16] LABS: POC Glucose,Bedside 118 (70-110)
--- NOTE | 2024-07-27 06:27 | PC.NURSE ---
Pt alert and oriented. pt heart rate has been staying between 45-55 sinus katrina with frequent pvcs. pt is on an amio drip at 0.5mg/min. it was changed from 1mg/min to 0.5mg/min at 0500. When pt arrived to the hospital he was in the 130s with afib rvr. when he arrived on the unit heart rate was 98 afib. pt was started on amio had a bolus then was switched over to maintance. at one point in the night the monitor was showing pts heart rate was in the 70s but when palpating pulse it was 40. Tyson ceja was notified and he ordered an EKG. He was okay with not doing any other intervention at that time due to pt not being symptomatic and pt is sleeping. Pts blood pressure was elevated when he arrived on the unit and it now back down to the 130's/40s. when listening to pt lungs the bases are diminshed and the upper lobes have expiratory wheezing. Pt does have a wet cough. If pt is able to get anything up he uses the yonker to suction it out. pt is on room air. Pt daughter will be here this am.
[2024-07-27 07:41] LABS: Basophils % 0.3 % (0.1-2.0); Eosinophils # 0.1 Kmm3 (0.0-0.4); Eosinophils % 1.2 % (0.1-12.0); Hematocrit 32.4 % (42.0-52.0); Immature Granulocytes # 0.06 10^3uL; Immature Granulocytes % 0.9 %; Lymphocytes # 1.3 K/mm3 (0.7-4.5); Lymphocytes % 20.2 % (10-50); Mean Corpuscular HGB Conc 31.5 g/dL (31.8-35.4); Mean Corpuscular Hemoglobin 29.9 pg (27.0-31.2); Mean Platelet Volume 10.3 fl (7.4-10.4); Monocytes # 0.5 K/mm3 (0.1-1.0); Monocytes % 7.7 % (1.7-9.3); Neutrophils # 4.6 K/mm3 (1.8-7.8); Neutrophils % 69.7 % (37.0-80.0); Nucleated Red Blood Cells # 0 10^3/uL; Nucleated Red Blood Cells % 0 %; Platelet Count 196 K/mm3 (142-424); Red Blood Count 3.41 M/mm3 (4.60-6.20); Red Cell Distribution Width 16.2 % (11.5-17.5); Red Cell Distribution Width-SD 55.8 fL; White Blood Count 6.6 K/mm3 (4.8-10.8)
[2024-07-27 08:03] LABS: Albumin Level 2.9 g/dl (3.5-5.0); Chloride 105 mmol/L (98-107); Potassium 4.1 mmoL/L (3.5-5.1); Sodium 131 mmol/L (136-145)
[2024-07-27 08:06] LABS: Alanine Aminotransferase 11 U/L (12-78); Albumin/Globulin Ratio 1.1 (1.1-1.8); Alkaline Phosphatase 111 U/L (38-126); Anion Gap 4.1 mEq/L (5-15); Aspartate Amino Transferase 18 U/L (17-59); Bilirubin,Total 0.8 mg/dl (0.2-1.3); Blood Urea Nitrogen 7 mg/dl (9-20); Calcium 8.3 mg/dl (8.4-10.2); Carbon Dioxide 26 mmol/L (22.0-30.0); Creatinine Clearance Estimated 49 mL/min (50-200); Estimated Glomerular Filt Rate 108 ml/min (>60); GFR (African American) 131 ML/MIN (>60); Globulin 2.7 g/dL (1.3-3.2); Glucose 108 mg/dl (74-100); Magnesium 2.4 mg/dl (1.6-2.3); Total Protein,Serum 5.6 g/dl (6.3-8.2)
[2024-07-27] MEDS: APIXABAN 5MG TABLET 5 MG PO ×2 (08:29→21:13)
[2024-07-27] MEDS: CLOPIDOGREL 75MG TAB 75 MG PO (08:29)
[2024-07-27] MEDS: FLUTICASONE/UMECLIDIN/VILANTER 100/62.5/25MCG INHALER 1 PUFF IH (08:30)
[2024-07-27] MEDS: DULOXETINE 30MG CAPSULE.DR 60 MG PO (08:30)
[2024-07-27] MEDS: EMPAGLIFLOZIN 10MG TABLET 10 MG PO (08:30)
[2024-07-27] MEDS: MEMANTINE 10MG TABLET 5 MG PO ×2 (08:31→21:12)
[2024-07-27] MEDS: OXYBUTYNIN 5MG TAB 5 MG PO ×2 (08:32→21:13)
[2024-07-27] MEDS: SACUBITRIL/VALSARTAN 24-26MG TABLET 1 EACH PO ×2 (08:32→21:13)
[2024-07-27] MEDS: SPIRONOLACTONE 25MG TABLET 25 MG PO (08:32)
--- NOTE | 2024-07-27 09:51 | HMH.PHAINT1 ---
Pharmacy Intervention Comments: MEDICATION RECONCILIATION COMPLETE USING RECENT HOSPITAL DISCHARGE NOTE, RECENT CARDIOLOGY OFFICE VISIT NOTE, AND EXTERNAL PHARMACY FILL HISTORY.
[2024-07-27 11:45] LABS: POC Glucose,Bedside 92 (70-110)
--- NOTE | 2024-07-27 13:00 | PC.NURSE ---
MD notified of patient persistent productive cough, Patient remains A-febrile and SOA. No new orders at this time.
[2024-07-27 13:43] LABS: Hemoglobin 10.2 g/dL (14.1-18.0)
--- NOTE | 2024-07-27 16:04 | EXP.PN ---
Subjective *Date: 07/27/24 *Time: 21:22 Exam Data for Last 24 hours Vital signs and Labs for Last 24 Hours: Temp Pulse Resp BP Pulse Ox O2 Del Method 97.9 F 47 L 12 137/50 L 97 Room Air 07/27/24 07:01 07/27/24 12:01 07/27/24 12:01 07/27/24 12:01 07/27/24 12:01 07/27/24 13:00 Laboratory Results - last 24 hr 07/26/24 20:55: WBC 7.4, RBC 3.79 L, Hgb 11.8 L, Hct 35.5 L, MCV 93.7, MCH 31.1, MCHC 33.2, RDW 16.0, Plt Count 219, MPV 10.1, Neut % (Auto) 80.8 H, Lymph % (Auto) 11.9, [place] % (Auto) 5.7, Eos % (Auto) 0.8, Baso % (Auto) 0.1, Neut # (Auto) 6.0, Lymph # (Auto) 0.9, [place] # (Auto) 0.4, Eos # (Auto) 0.1, Baso # (Auto) 0.0, PT 12.1, INR 1.10, APTT 31.0 H, Sodium 133 L, Potassium 3.7, Chloride 102, Carbon Dioxide 29, Anion Gap 5.7, BUN 6 L, Creatinine 0.70, Estimated Creat Clear 48, Estimated GFR 108, Est GFR ( Amer) 131, Glucose 134 H, Calcium 8.5, Magnesium 1.9, Total Bilirubin 1.0, AST 16 L, ALT 13, Alkaline Phosphatase 107, Troponin I 0.01, Total Protein 5.9 L, Albumin 3.2 L, Globulin 2.7, Albumin/Globulin Ratio 1.2, TSH 0.24 L 07/26/24 22:51: POC Glucose 120 H 07/26/24 23:47: Troponin I 0.01 07/27/24 03:00: Troponin I 0.02 07/27/24 05:56: POC Glucose 118 H 07/27/24 07:20: WBC 6.6, RBC 3.41 L, Hgb 10.2 L D, Hct 32.4 L, MCV 95.0 H, MCH 29.9, MCHC 31.5 L, RDW 16.2, Plt Count 196, MPV 10.3, Neut % (Auto) 69.7, Lymph % (Auto) 20.2, [place] % (Auto) 7.7, Eos % (Auto) 1.2, Baso % (Auto) 0.3, Neut # (Auto) 4.6, Lymph # (Auto) 1.3, [place] # (Auto) 0.5, Eos # (Auto) 0.1, Baso # (Auto) 0.0, Sodium 131 L, Potassium 4.1, Chloride 105, Carbon Dioxide 26, Anion Gap 4.1 L, BUN 7 L, Creatinine 0.70, Estimated Creat Clear 49, Estimated GFR 108, Est GFR ( Amer) 131, Glucose 108 H, Calcium 8.3 L, Phosphorus 3.0, Magnesium 2.4 H D, Total Bilirubin 0.8, AST 18, ALT 11 L, Alkaline Phosphatase 111, Total Protein 5.6 L, Albumin 2.9 L, Globulin 2.7, Albumin/Globulin Ratio 1.1 07/27/24 11:38: POC Glucose 92 I & O for Last 24 hours: Intake & Output 07/24/24 07/25/24 07/26/24 07/27/24 23:59 23:59 23:59 23:59 Intake Total 543.109 / 543.109 Output Total 50 / 70 160 / 160 Balance -50 / 80 383.109 / 383.109 Weight 59.8 kg 59.8 kg Constitutional Constitutional: no acute distress *Routine HEENT Exam Head: Present normocephalic Eye: Present EOMI and PERRL ENT: Present mucous membranes moist *Routine Neck Exam Neck: Present supple; Absent lymphadenopathy *Routine Respiratory Exam Respiratory: Present CTA bilaterally *Routine Cardiovascular Exam Cardiovascular: Present RRR *Routine Abdominal Exam Abdominal: Present soft and normoactive bowel sounds; Absent tenderness *Routine Extremities Exam Extremities: Absent cyanosis, clubbing or edema Comments: Right BKA. *Routine Skin Exam Skin: Present warm; Absent rash *Routine Neurological Exam Neurological: Present alert and oriented X3 Assessment and Plan *Assessment and plan (1) CAD (coronary artery disease): Status: Chronic Qualifiers: Associated angina: without angina Coronary Disease-Associated Artery/Lesion type: [place] artery [place] vs. transplanted heart: [place] heart Qualified Code(s): I25.10 - Atherosclerotic heart disease of [place] coronary artery without angina pectoris Category: Medical Code(s): I25.10 - Atherosclerotic heart disease of [place] coronary artery without angina pectoris (2) HTN (hypertension): Status: Chronic Qualifiers: Hypertension type: essential hypertension Qualified Code(s): I10 - Essential (primary) hypertension Category: Medical Code(s): I10 - Essential (primary) hypertension (3) HLD (hyperlipidemia): Status: Chronic Qualifiers: Hyperlipidemia type: mixed hyperlipidemia Qualified Code(s): E78.2 - Mixed hyperlipidemia Category: Medical Code(s): E78.5 - Hyperlipidemia, unspecified (4) HFrEF (heart failure with reduced ejection fraction): Status: Acute Category: Medical Code(s): I50.20 - Unspecified systolic (congestive) heart failure (5) BPH without obstruction/lower urinary tract symptoms: Status: Acute Category: Medical Code(s): N40.0 - Benign prostatic hyperplasia without lower urinary tract symptoms (6) Stenosis of carotid artery: Status: Acute Qualifiers: Laterality: bilateral Qualified Code(s): I65.23 - Occlusion and stenosis of bilateral carotid arteries Category: Medical Code(s): I65.29 - Occlusion and stenosis of unspecified carotid artery (7) PAD (peripheral artery disease): Status: Chronic Category: Medical Code(s): I73.9 - Peripheral vascular disease, unspecified Plan Ti Rodríguez is a 83-year-old man with ischemic cardiomyopathy, CABG, recent PCI x 2 SVG to RCA and D1 presenting after a LifeVest shock. Device interrogated, interpreted as an appropriate shock due to ventricular tachycardia. #V. tach #LifeVest discharge ? Started on amiodorone drip, converted to NSR. - Transitioned to PO amiodorone 400mg BID. - Discussed with Dr. Howard, will get ICD on Monday. - Follow-up ECHO. #Weakness - Patient feeling weak, not eating much. - Follow-up UA, CXR unremarble. - Replace kidd catheter. Atrial fibrillation, chronic -Beta-natalie -DOAC Heart failure reduced ejection fraction Ischemic cardiomyopathy -Switch beta-natalie to Toprol -Jardiance -Spironolactone -Entresto -Lasix -Increase to goal dosing Anemia - Iron panel - If iron deficient give IV iron for improvement of heart failure symptoms Coronary artery disease CABG PCI to SVG x 2 RCA and D1 - Dual antiplatelet therapy - High intensity statin - LDL goal 55 - Add Zetia if not at goal
[2024-07-27 16:52] LABS: POC Glucose,Bedside 104 (70-110)
[2024-07-27 20:43] LABS: POC Glucose,Bedside 102 (70-110)
[2024-07-27] MEDS: AMIODARONE 200MG TABLET 400 MG PO (21:12)
[2024-07-27] MEDS: ATORVASTATIN 40MG TABLET 80 MG PO (21:13)
[2024-07-27] MEDS: TAMSULOSIN 0.4MG CAPSULE 0.4 MG PO (21:13)
[2024-07-27] MEDS: FINASTERIDE 5MG TABLET 5 MG PO (21:13)
[2024-07-27] MEDS: TRAZODONE 50MG TABLET 100 MG PO (21:13)
--- OUTSIDE RECORDS SUMMARY | 2024-07-27 21:19 | XMS_ITS | Continuity of Care Document ---
Author Organization [facility] & [facility] Urology-100 Address [address] [facility] [place] [address] Care Team Providers Care C D Stripper Name Role Phone SHERRY DOBSON Referring Provider [phone] Assessment No assessment recorded. Plan of Treatment [...] prostatic hyperplasi a with outflow obstructio n [id number] Active 2024 [place], [address] [facility] & [place] 5 16:11:43 Retention of urine 828720210 Active 2024 [facility] [address] [facility] & [place] 5 16:11:47 Lawrence hematuria 139504687 Active 2024 [facility] [address] [facility] & [place] 5 17:37:13 Kidney disease 09214148 Active 2024 Sierra Chávez [facility], [facility] & [place] 5 11:03:47 Hyperchole sterolemia 24512006 Active 2024 Sierra [place], [place] [facility] & [place] 5 11:03:56 Hypertensi ve disorder 57304552 Active 2024 Sierra Chávez [place], [place] [facility] & [place] 5 11:04:03 Chronic obstructiv e pulmonary disease 56074885 Active 2024 Sierra Chávez [place] [facility] & [place] 5 11:04:09 Denture present 228560825 Active 2024 Sierra Chávez [place], [place] [facility] [place] 5 11:04:20 Environmen gila allergy 038664576 Active 2024 Sierra Chávez [place] [facility] & [place] 5 11:04:29 Heart disease 92345956 Active 2024 Sierra Chávez [place] & [place] 5 11:04:37 Myocardial infarction 07044527 Active 2024 Sierra turner, [place] [facility] & [place] 5 11:04:47 Lower urinary tract symptoms due to benign prostatic hypertroph y [id number] 1 Active 2024 MAYUR CORBIN MD [address], [place], [address] , [place] - [place] - [place] & [place] 5 10:57:17 Problem Notes None recorded. Procedures Surgical History Date Name Laterality Status Provider Name and Address Organization Details Recorded Time 5 Cystoscopy-Mal e completed MAYUR CORBIN MD [address], [place], [address], [place] - [place] - [place] & [place] 06/13/2024 17:35:45 5 Kidd Catheter Insertion completed Felisha Ulloa [place] - [place] - [place] & [place] 06/13/2024 14:25:05 5 Cystoscopy-Mal e completed MAYUR CORBIN MD [address], [place], [address], [facility] & [place] 04/25/2024 10:56:51 5 TRUS completed MD T[address]in [address], [place], [address], [facility] & [place] 04/25/2024 10:57:12 Imaging Results None recorded. Procedure [...] e) 50 mcg/actuati on nasal spray,suspe nsion [place] 1 spray every day by intranasa l [...] SNOMED-CT Code Diagnosis ICD10 Code Diagnosis Note [id number] MAYUR CORBIN MD [facility] Urology-[address] [place] [address] 05/16/2024 14:23:47 05/16/2024 16:25:31 Benign prostatic hyperplasia with outflow obstruction [id number] N40.1 N13.8 I have instructed the patient to discontinu e oxybutynin immediatel y. We did not perform voiding trial today as this would likely be unsuccessf ul. He will continue tamsulosin and follow up next week for voiding trial with cystoscopy and prostate ultrasound . Retention of urine 26096 4002 R33.9 Patient successful ly completed voiding trial today and has declined further catheteriz ation. He will follow up in 6 weeks for PVR check. [id number] MAYUR CORBIN MD [facility] Urology-[address] [place] [address] 06/13/2024 13:44:36 06/13/2024 14:21:15 Retention of urine 694543533 R33.9 will send urine for PCR [id number] MAYUR CORBIN MD [facility] Urology-[address] [place] [address] 06/13/2024 16:21:44 06/13/2024 17:10:35 Lawrence hematuria 432802928 R31.0 Flexible cystoscopy performed in office today showed bleeding from the prostate but no active bleeding or formed blood clots within the bladder lumen. A new 18 Chinese catheter was placed over guidewire with 10 cc of sterile water in the balloon. This was irrigated to clear yellow urine. Retention of urine 45978 4002 R33.9 Patient will continue catheteriz ation [...] Name 06/13/2024 1 [place] Ti Rodríguez [id number] 58 Ti Rodríguez 06/13/2024 2 [place] [id number] Ti Rodríguez [id number] Ti Rodríguez Notes Date Note Type Note Provider Name and Address Organization Details Recorded Time 06/13/2024 text/html 06/13/24 83-year-old male presents as a work-in for gross hematuria. Kidd catheter was exchanged earlier today and initially drained clear, however, he returned with gross hematuria and clot passage. Attempts were made by nurse practitioner to replace the catheter which were unsuccessful.------ 0 05/16/24 CC: 26-qdmh-alh-male returns to clinic for follow up ER ([facility]) visit on 04/29/24 for increased abdominal discomfort [...] leakage. The patient has not seen a change control analyst in years but has been managed by Renea Pagan with Dr. Loo in [facility]. 04/25/24 33-pxgj-rdk-male present to clinic for voiding trial with cystoscopy and prostate ultrasound. Voiding trial was attempted today and patient began voiding after only 60 cc was placed in the bladder.He remains on tamsulosin and reports that he discontinued the oxybutynin as instructed at his 1st visit. 04/18/25801504-jbfk-kzh -male present to clinic as new patient for ER ([facility]) visit on 04/08/24 decrease urine volume but [...] mucus 3+04/25/24 TRUS volume 93.4 cc04/08/24 CT/w ([facility]) kidneys and ureters: multiple Bosniack 1 renal cystic lesions defined as homogeneous and fluid density (-9 to 20 HU), no septation or calcifications, having rangel smooth and thin, largest cyst measures 1.1cm, no hydronephrosis. Urinary bladder unremarkable Enlarge prostate 6.8x4.9x6.7cm Cr 0.90, GFR 81, Hgb 15.7, Hct 46.7004/08/24 UA pH 6.0, SG >=1.030, Blood-trace, 4 Cr 1.15, GFR 64, Hgb 16.3, Hct 47.44306 PSA 9.4 MAYUR CORBIN MD [address], [place], [address], [facility] - [place] & [place] 06/13/2024 17:41:46
--- OUTSIDE RECORDS SUMMARY | 2024-07-27 21:19 | XMS_ITS | Encounter Summary ---
Author Organization [facility] Address [address] [place] [address] Care Team Providers Care Deputy Clerk Name Role Phone Stefanai Gilliland ROTOFORMER BACKTENDER Primary Care Provider [phone] Encounter Details Date Type Department Care Team (Late st Contact Info) Description 01/23/2023 Lab Requisition [facility] [address] [place] [address] Ramo Talbot MD [address] [place] [address] Encounter for general adult medical examination without [...] place to sleep or slept in a senior care (including now)? No 01/19/2023 Utilities Answer Date [...] ERAL ORDERABLES Final Result Performing Organization Address City/State/[facility] Co de Phone Number [facility] [address] [place] [address] documented in this encounter Visit Diagnoses Diagnosis [...] documented as of this encounter Care Teams Deputy Clerk Relationship Specialty Start Date End Date Stefania Gilliland APRN [address] [place] [address] PCP - General 01/20/23 documented as of this encounter
--- OUTSIDE RECORDS SUMMARY | 2024-07-27 21:20 | XMS_ITS ---
Author Organization [facility] Address [address] [place] [address] Care Team Providers Care Blueprint Engineer Name Role Phone Stefania Gilliland TEEN COUNSELOR Primary Care Provider [phone] Active Problems Problem Noted Date Diagnosed Date [...] symptoms 03/17/2023 Coronary artery disease invo lving [place] coronary artery of [place] heart without angina pectoris 03/17/2023 Abdominal aortic [...]
--- OUTSIDE RECORDS SUMMARY | 2024-07-27 21:20 | XMS_ITS | Continuity of Care Document ---
Author Organization [facility] Urology-100 Address [address] [facility] [address] [place] [address] Care Team Providers Care Natural Fabricator Name Role Phone SHERRY DOBSON Referring Provider [...] prostatic hyperplasi a with outflow obstructio n 431557126 Active 2024 [place], [address] [facility] & [place] 5 16:11:43 Retention of urine 700556279 Active [facility] [address] [facility] & [place] 5 16:11:47 [place] hematuria 345561392 Active 2024 [facility] [address] [facility] & [place] 5 17:37:13 Kidney disease 82850206 Active 2024 Sierra Chávez [facility], [facility] & [place] 5 11:03:47 Hyperchole sterolemia 15520401 Active 2024 Sierra turner, [place] - [place] - [facility] & [place] 5 11:03:56 Hypertensi ve disorder 81600802 Active 2024 Sierra Chávez [place], [place] [facility] [place] 5 11:04:03 Chronic obstructiv e pulmonary disease 50158866 Active 2024 Sierra Chávez [place] [facility] [facility] [place] 5 11:04:09 Denture present 745237697 Active 2024 Sierra Chávez [place], [place] [facility] & [place] 5 11:04:20 Environmen gila allergy 834506136 Active 2024 Sierra Chá[place] & [place] 5 11:04:29 Heart disease 41247349 Active 2024 Sierra Chávez [place] [facility] [place] 5 11:04:37 Myocardial infarction 34409984 Active 2024 Sierra turner, [place] [facility] & [place] 5 11:04:47 Lower urinary tract symptoms due to benign prostatic hypertroph y [id number] 1 Active 2024 MAYUR CORBIN MD [address], [place], [address] , [place] & [place] 5 10:57:17 Problem Notes None recorded. Procedures Surgical History Date Name Laterality Status Provider Name and Address Organization Details Recorded Time 5 Cystoscopy-Mal e completed MAYUR CORBIN MD [address], [place], [address], [place] & [place] 06/13/2024 17:35:45 5 Kidd Catheter Insertion completed Felisha Ulloa [place] & [place] 06/13/2024 14:25:05 5 Cystoscopy-Mal e completed MAYUR CORBIN MD [address], [place], [address], [facility] & [place] 04/25/2024 10:56:51 5 TRUS completed MD [address], [place], [address], [facility] & [place] 04/25/2024 10:57:12 Imaging Results None recorded. Procedure [...] e) 50 mcg/actuati on nasal spray,suspe nsion [place] 1 spray every day by intranasa l [...] SNOMED-CT Code Diagnosis ICD10 Code Diagnosis Note [id number] MAYUR CORBIN MD [facility] Urology-[address] [place] [address] 05/16/2024 14:23:47 05/16/2024 16:25:31 Benign prostatic hyperplasia with outflow obstruction [id number] N40.1 N13.8 I have instructed the patient to discontinu e oxybutynin immediatel y. We did not perform voiding trial today as this would likely be unsuccessf ul. He will continue tamsulosin and follow up next week for voiding trial with cystoscopy and prostate ultrasound . Retention of urine 40884 4002 R33.9 Patient successful ly completed voiding trial today and has declined further catheteriz ation. He will follow up in 6 weeks for PVR check. [id number] MAYUR CORBIN MD [facility] Urology-[address] [place] [address] 06/13/2024 13:44:36 06/13/2024 14:21:15 Retention of urine 997728343 R33.9 will send urine for PCR [id number] MAYUR CORBIN MD [facility] Urology-[address] [place] [address] 06/13/2024 16:21:44 06/13/2024 17:10:35 Lawrence hematuria 033257344 R31.0 Flexible cystoscopy performed in office today showed bleeding from the prostate but no active bleeding or formed blood clots within the bladder lumen. A new 18 [place] catheter was placed over guidewire with 10 cc of sterile water in the balloon. This was irrigated to clear yellow urine. Retention of urine 03802 4002 R33.9 Patient will continue catheteriz ation [...] Name 06/13/2024 1 [place] Ti Rodríguez [id number] 58 Ti Rodríguez 06/13/2024 2 [place] [id number] Ti Rodríguez [id number] Ti Rodríguez Notes Date Note Type Note Provider Name and Address Organization Details Recorded Time 06/13/2024 text/html 06/13/24 83-year-old male presents as a work-in for gross hematuria. Kidd catheter was exchanged earlier today and initially drained clear, however, he returned with gross hematuria and clot passage. Attempts were made by nurse practitioner to replace the catheter which were unsuccessful.------ 0 05/16/24 CC: 28-siof-dfa-male returns to clinic for follow up ER ([facility]) visit on 04/29/24 for increased abdominal [...] The patient has not seen a hot tar roofer helper in years but has been managed by Renea Pagan with Dr. Loo in [facility]. 04/25/24 78-ejha-rwt-male present to clinic for voiding trial with cystoscopy and prostate ultrasound. Voiding trial was attempted today and patient began voiding after only 60 cc was placed in the bladder.He remains on tamsulosin and reports that he discontinued the oxybutynin as instructed at his 1st visit. 04/18/25802116-yiwg-mmc -male present to clinic as new patient for ER ([facility]) visit on 04/08/24 decrease urine volume [...] mucus 3+04/25/24 TRUS volume 93.4 cc04/08/24 CT/w ([facility]) kidneys and ureters: multiple Bosniack 1 renal cystic lesions defined as homogeneous and fluid density (-9 to 20 HU), no septation or calcifications, having rangel smooth and thin, largest cyst measures 1.1cm, no hydronephrosis. Urinary bladder unremarkable Enlarge prostate 6.8x4.9x6.7cm Cr 0.90, GFR 81, Hgb 15.7, Hct 46.702 UA pH 6.0, SG >=1.030, Blood-trace, 4 Cr 1.15, GFR 64, Hgb 16.3, Hct 47.89986 PSA 9.4 MAYUR CORBIN MD [address], [place], [address], [place] & [place] 06/13/2024 17:41:46 07/08/2024 text/html 07/08/2024 83 yowm [...] catheter which were unsuccessful.------ 0 05/16/24 CC: 55-fbfr-yjk-male returns to clinic for follow up ER ([facility]) visit on 04/29/24 for increased abdominal [...] The patient has not seen a hot tar roofer helper in years but has been managed by Renea Pagan with Dr. Loo in [facility]. 04/25/24 89-ceki-twy-male present to clinic for voiding trial with cystoscopy and prostate ultrasound. Voiding trial was attempted today and patient began voiding after only 60 cc was placed in the bladder.He remains on tamsulosin and reports that he discontinued the oxybutynin as instructed at his 1st visit. 04/18/25808786-okfk-fmq -male present to clinic as new patient for ER ([facility]) visit on 04/08/24 decrease urine volume [...] mucus 3+04/25/24 TRUS volume 93.4 cc04/08/24 CT/w ([facility]) kidneys and ureters: multiple Bosniack 1 renal cystic lesions defined as homogeneous and fluid density (-9 to 20 HU), no septation or calcifications, having rangel smooth and thin, largest cyst measures 1.1cm, no hydronephrosis. Urinary bladder unremarkable Enlarge prostate 6.8x4.9x6.7cm Cr 0.90, GFR 81, Hgb 15.7, Hct 46.702 UA pH 6.0, SG >=1.030, Blood-trace, 4 Cr 1.15, GFR 64, Hgb 16.3, Hct 47.53322 PSA 9.4 Lizzie Andrews, [place], [address], [place], [address], [facility] - [place] & [place] 07/08/2024 14:17:41
--- OUTSIDE RECORDS SUMMARY | 2024-07-27 21:20 | XMS_ITS | Clinical Summary ---
Author Organization [facility] Address [address] [place] [address] Care Team Providers Care Smooth Stucco Resurfacer Name Role Phone Stefania Gilliland RAIL CAR OPERATOR Primary Care Provider [phone] Allergies No known active allergies Medications ezetimibe-simva [...] symptoms 03/17/2023 Coronary artery disease invo lving [place] coronary artery of [place] heart without angina pectoris 03/17/2023 Abdominal aortic aneurysm 03/17/2023 Obesity (BMI 30.0-34.9) 03/17/2023 CKD (chronic kidney disease) 02/14/2023 Overview (02/24/2023): - Cr 1.03 on admit - WNL S/P AKA (above knee amputation), right Overview (03/24/2023): - 02/08/23: Right above knee amputation and right groin 03/23: Victoria removed per vascular in ED Class 2 [...] place to sleep or slept in a detention (including now)? No 05/23/2023 CAGE ASSESSMENT Answer [...] drink first t hugo in the morning (EYE-PERSONAL BANKER) to steady your nerves or to get [...] or (1 - 1-dose 75+ series) 2017 ZGD-ELSYX-24 Vaccine ( season) 2023 10/14/2022, 12/27/2021, 08/30/2021, [...] this topic Medical Devices Implanted Type Area Manager Forensic Device Identifier Shelf Expiration Date Model / Serial / Lot Graft Excluder Trnk Ipsilat 15f 14.5cm/12mm/23mm - [id number] Implanted:Qty: 1 on 01/17/2023 by [facility] Ann [facility]-[id number] 4 10/23/2025 [id number] / [id number] / [id number] Coil Vascular 6jiw5hm - [id number] Implanted:Qty: 1 on 01/17/2023 by Jamey Ann MD at [facility]-[id number] 09/20/2027 [id number] / / [id number] Coil Vascular 2fda8wk - [id number] Implanted:Qty: 1 on 01/17/2023 by Jamey Ann MD at [facility]-[id number] 09/20/2027 [id number] / / [id number] Component Contralateral Leg 12mm 12cm - [id number] Implanted:Qty: 1 on 01/17/2023 by Jamey Ann MD at [facility] [employer]-[id number] 4 09/28/2025 [id number] / [id number] / [id number] Component Contralateral Leg 12mm 10cm - [id number] Implanted:Qty: 1 on 01/17/2023 by Jamey Ann MD at [facility] [employer]-93451 4 08/27/2025 [id number] / [id number] / [id number] Stent Graft Iliac [id number] Lviabahnbx - [id number] Implanted:Qty: 1 on 01/17/2023 by Jamey Ann MD at [facility] [employer]-91626 4 10/30/2025 [id number] / [id number] / [id number] Vascuguard 8 X 8 - [id number] Implanted:Qty: 1 on 01/17/2023 by Jamey Ann MD at [facility] [employer]-[id number] 7 08/24/2023 [id number] / / [id number] Vascuguard 8 X 8 - [id number] Implanted:Qty: 1 on 01/17/2023 by Jamey Ann MD at [facility] Right: Yahir [employer]-[id number] 7 08/24/2023 [id number] / / [id number] Additional Health Concerns Infection Onset Date 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 Yes Care Teams Smooth Stucco Resurfacer Relationship Specialty Start Date End Date Stefania Gilliland APRN [address] [facility] [address] [place] [address] PCP - General 01/20/23
--- OUTSIDE RECORDS SUMMARY | 2024-07-27 21:20 | XMS_ITS | Patient Health Record ---
Author Organization [facility] Address [address] [place] [address] Care Team Providers Care Civil Structural Designer Name Role Phone Stefania Pagan Primary Care Provider STEFANIA Pagan APRN Unavailable Unavailable Migration, Provider Unavailable Unavailable Allergies Allergen (clinical drug ingredient) Drug/Non Drug Allergy documented on EMR Reaction Allergy Type Onset Date Status oseltamivir Tamiflu hallucinations Drug Allergy Active Results Component Value Reference Range Notes TSH (899) Reviewed date:05/02/2024 12:40:44 PM Interpretation: Performing Lab:MIHAELA, [place] [facility] [address], [facility] ServicesQztoBZ[address] Ernesto Pineda Notes/Report: NON-FASTING; NON-FASTING; NON-FASTING; NON-FASTING TSH 0.35 0.40-4.50 mIU/L PSA, TOTAL (5329) Reviewed date:05/02/2024 12:40:44 PM Interpretation: Performing Lab:MIHAELA [place] [facility] [address], [place]lEstwZJ[address] Ernesto Pineda Notes/Report: NON-FASTING; NON-FASTING; NON-FASTING; NON-FASTING PSA, TOTAL 0.68 < OR = 4.00 ng/mL The total PSA value from this assay system is standardized against the WHO standard. The test result will be approximately 20% lower when compared to the equimolar-standardized total PSA (Brooklyn Chapo). Comparison of serial PSA results should be interpreted with this fact in mind. This test was performed using the Siemens chemiluminescent method. Values obtained from different assay methods cannot be used interchangeably. PSA levels, regardless of value, should not be interpreted as absolute evidence of the presence or absence of disease. CBC (INCLUDES DIFF/PLT) (639 9) Reviewed date:02/08/2024 02:31:16 PM Interpretation: Performing Lab:MIHAELA [place] [id number] [facility], [facility] ServicesWtbxEJ[address] Ernesto Pineda Notes/Report: FASTING: YES FASTING:YES NON-FASTING; NON-FASTING; NON-FASTING WHITE BLOOD CELL COUNT 7.0 3.8-10.8 Thousand/ uL RED BLOOD CELL COUNT 4.99 4.20-5.80 Million/uL HEMOGLOBIN 16.3 13.2-17.1 g/dL HEMATOCRIT 47.9 38.5-50.0 % MCV 96.0 80.0-100.0 fL MCH 32.7 27.0-33.0 pg MCHC 34.0 32.0-36.0 g/dL For adults, a slight decrease in the calculated MCHC value (in the range of 30 to 32 g/dL) is most likely not clinically significant; however, it should be interpreted with caution in correlation with other red cell parameters and the patient's clinical condition. RDW 13.9 11.0-15.0 % PLATELET COUNT 140 140-400 Thousand/uL MPV 11.0 7.5-12.5 fL ABSOLUTE NEUTROPHILS [phone] cells/uL ABSOLUTE LYMPHOCYTES [phone] cells/uL ABSOLUTE MONOCYTES 434 200-950 cells/uL ABSOLUTE EOSINOPHILS 42 15-500 cells/uL ABSOLUTE BASOPHILS 28 0-200 cells/uL NEUTROPHILS 69.6 LYMPHOCYTES 23.2 MONOCYTES 6.2 EOSINOPHILS 0.6 BASOPHILS 0.4 CBC (INCLUDES DIFF/PLT) (639 9) Reviewed date:08/17/2023 10:29:19 AM Interpretation: Performing Lab:MIHAELA [facility] [id number] [facility] [facility], [facility] ServicesZujoTG[address] Ernesto Pineda Notes/Report: NON-FASTING; NON-FASTING WHITE BLOOD CELL COUNT 6.9 3.8-10.8 Thousand/ uL RED BLOOD CELL COUNT 4.36 4.20-5.80 Million/uL HEMOGLOBIN 13.6 13.2-17.1 g/dL HEMATOCRIT 41.8 38.5-50.0 % MCV 95.9 80.0-100.0 fL MCH 31.2 27.0-33.0 pg MCHC 32.5 32.0-36.0 g/dL RDW 14.8 11.0-15.0 % PLATELET COUNT 155 140-400 Thousand/uL MPV 10.7 7.5-12.5 fL ABSOLUTE NEUTROPHILS 4789 3627-5688 cells/uL ABSOLUTE LYMPHOCYTES 4421 167-6940 cells/uL ABSOLUTE MONOCYTES 587 200-950 cells/uL ABSOLUTE EOSINOPHILS 7 15-500 cells/uL ABSOLUTE BASOPHILS 7 0-200 cells/uL NEUTROPHILS 69.4 LYMPHOCYTES 21.9 MONOCYTES 8.5 EOSINOPHILS 0.1 BASOPHILS 0.1 CBC (INCLUDES DIFF/PLT) (639 9) Reviewed date:05/02/2024 12:40:44 PM Interpretation: Performing Lab:CB, [facility] [address], [facility] HospitalWdvjEH[address] Ernesto Pineda Notes/Report: NON-FASTING; NON-FASTING; NON-FASTING; NON-FASTING WHITE BLOOD CELL COUNT 6.6 3.8-10.8 Thousand/ uL RED BLOOD CELL COUNT 4.50 4.20-5.80 Million/uL HEMOGLOBIN 14.4 13.2-17.1 g/dL HEMATOCRIT 43.0 38.5-50.0 % MCV 95.6 80.0-100.0 fL MCH 32.0 27.0-33.0 pg MCHC 33.5 32.0-36.0 g/dL For adults, a slight decrease in the calculated MCHC value (in the range of 30 to 32 g/dL) is most likely not clinically significant; however, it should be interpreted with caution in correlation with other red cell parameters and the patient's clinical condition. RDW 13.4 11.0-15.0 % PLATELET COUNT 144 140-400 Thousand/uL MPV 10.6 7.5-12.5 fL ABSOLUTE NEUTROPHILS 4422 3398-0402 cells/uL ABSOLUTE LYMPHOCYTES 7329 833-0888 cells/uL ABSOLUTE MONOCYTES 429 200-950 cells/uL ABSOLUTE EOSINOPHILS 40 15-500 cells/uL ABSOLUTE BASOPHILS 33 0-200 cells/uL NEUTROPHILS 67 LYMPHOCYTES 25.4 MONOCYTES 6.5 EOSINOPHILS 0.6 BASOPHILS 0.5 COMPREHENSIVE METABOLIC PANE L (03542) Reviewed date:05/02/2024 12:40:44 PM Interpretation: Performing Lab:MIHAELA [facility] [place] [id number] Search InitiativesteLumetrics, [place] DafnOG[address] Ernesto Pineda Notes/Report: NON-FASTING; NON-FASTING; NON-FASTING; NON-FASTING GLUCOSE 103 65-99 mg/dL Fasting reference interval For someone without known diabetes, a glucose value between 100 and 125 mg/dL is consistent with prediabetes and should be confirmed with a follow-up test. UREA NITROGEN (BUN) 10 7-25 mg/dL CREATININE 0.96 0.70-1.22 mg/dL EGFR 79 > OR = 60 mL/min/1.73m2 BUN/CREATININE RATIO SEE NOTE: 6- (calc) Not Reported: BUN and Creatinine are within reference range. SODIUM 139 135-146 mmol/L POTASSIUM 4.5 3.5-5.3 mmol/L CHLORIDE 105 98-110 mmol/L CARBON DIOXIDE 29 20-32 mmol/L CALCIUM 8.7 8.6-10.3 mg/dL PROTEIN, TOTAL 5.8 6.1-8.1 g/dL ALBUMIN 3.7 3.6-5.1 g/dL GLOBULIN 2.1 1.9-3.7 g/dL (calc) ALBUMIN/GLOBULIN RATIO 1.8 1.0-2.5 (calc) BILIRUBIN, TOTAL 0.7 0.2-1.2 mg/dL ALKALINE PHOSPHATASE 97 35-144 U/L AST 8 10-35 U/L ALT 9 9-46 U/L COMPREHENSIVE METABOLIC PANE L (40453) Reviewed date:08/17/2023 10:29:19 AM Interpretation: Performing Lab:MIHAELA [facility] [place] [id number] Search Initiativestel [employer], TermSyncJvvyKZ[address] Ernesto Pineda Notes/Report: NON-FASTING; NON-FASTING GLUCOSE 94 65-99 mg/dL Fasting reference interval UREA NITROGEN (BUN) 13 7-25 mg/dL CREATININE 0.86 0.70-1.22 mg/dL EGFR 88 > OR = 60 mL/min/1.73m2 BUN/CREATININE RATIO SEE NOTE: 6- (calc) Not Reported: BUN and Creatinine are within reference range. SODIUM 136 135-146 mmol/L POTASSIUM 4.3 3.5-5.3 mmol/L CHLORIDE 101 98-110 mmol/L CARBON DIOXIDE 24 20-32 mmol/L CALCIUM 8.9 8.6-10.3 mg/dL PROTEIN, TOTAL 6.0 6.1-8.1 g/dL ALBUMIN 3.5 3.6-5.1 g/dL GLOBULIN 2.5 1.9-3.7 g/dL (calc) ALBUMIN/GLOBULIN RATIO 1.4 1.0-2.5 (calc) BILIRUBIN, TOTAL 0.7 0.2-1.2 mg/dL ALKALINE PHOSPHATASE 86 35-144 U/L AST 7 10-35 U/L ALT 8 9-46 U/L LIPID PANEL, STANDARD (7600) Reviewed date:02/08/2024 02:31:15 PM Interpretation: Performing Lab:MIHAELA [facility], SkwiblMtsqUH[address] Ernesto Pineda Notes/Report: NON-FASTING; NON-FASTING; NON-FASTING FASTING:YES FASTING: YES CHOLESTEROL, TOTAL 150 <200 mg/dL HDL CHOLESTEROL 41 > OR = 40 mg/dL TRIGLYCERIDES 153 <150 mg/dL LDL-CHOLESTEROL 84 Reference range: <100 Desirable range <100 mg/dL for primary prevention; <70 mg/dL for patients with CHD or diabetic patients with > or = 2 CHD risk factors. LDL-C is now calculated using the Lauri-Pedraza calculation, which is a validated novel method providing better accuracy than the Friedewald equation in the estimation of LDL-C. Lauri SS et al. BROCK. 2013;310(19): 8494-3922 (http://education.boomtrain.Forever [employer]/faq/NMV583) CHOL/HDLC RATIO 3.7 <5.0 (calc) NON HDL CHOLESTEROL 109 <130 mg/dL (calc) For patients with diabetes plus 1 major ASCVD risk factor, treating to a non-HDL-C goal of <100 mg/dL (LDL-C of <70 mg/dL) is considered a therapeutic option. COMPREHENSIVE METABOLIC PANE L (89632) Reviewed date:02/08/2024 02:31:16 PM Interpretation: Performing Lab:MIHAELA, [facility]TermSynce1355 Search Initiativestel [facility], TermSyncIkgmDP[address] Ernesto Pineda Notes/Report: NON-FASTING; NON-FASTING; NON-FASTING FASTING:YES FASTING: YES GLUCOSE 93 65-99 mg/dL Fasting reference interval UREA NITROGEN (BUN) 11 7-25 mg/dL CREATININE 1.15 0.70-1.22 mg/dL EGFR 64 > OR = 60 mL/min/1.73m2 BUN/CREATININE RATIO SEE NOTE: - (calc) Not Reported: BUN and Creatinine are within reference range. SODIUM 139 135-146 mmol/L POTASSIUM 4.6 3.5-5.3 mmol/L CHLORIDE 103 98-110 mmol/L CARBON DIOXIDE 27 20-32 mmol/L CALCIUM 9.2 8.6-10.3 mg/dL PROTEIN, TOTAL 6.1 6.1-8.1 g/dL ALBUMIN 4.1 3.6-5.1 g/dL GLOBULIN 2.0 1.9-3.7 g/dL (calc) ALBUMIN/GLOBULIN RATIO 2.1 1.0-2.5 (calc) BILIRUBIN, TOTAL 0.8 0.2-1.2 mg/dL ALKALINE PHOSPHATASE 89 35-144 U/L AST 13 10-35 U/L ALT 15 9-46 U/L Reason For Referral Reason Physical Therapy [facility] Referral Organization [facility] Referring Provider First Name Stefania Referring Provider Last Name Ej Referring Provider Speciality Family Pra ctice Referred Organization [facility] Referred Address [address] [place] [id number], Referred Provider Specialty Physical Med icine and Rehabilitation General Notes Theresa Petit 2023 11:03:42 AM >Scheduled 08/10/23 at 2pm Referral Priority Routine Referral Appointment Date 08/10/2023 Reason BCN for HH PT/OT and nursing for kidd catheter care Diagnosis 1 Weakness (R53.1) Referral Organization [facility] Referring Provider First Name Stefania Referring Provider Last Name Ej Referring Provider Speciality Family Pra ctice Referred Organization [facility] Referred Provider Specialty Home Health General Notes Theresa Petit 2024 01:11:43 PM >Patient sent to BCN Damaso ROMERO Nickie 05/01/2024 04:17:12 PM >starting on Referral Priority Routine Reason please fax order to BCN okay to change kidd catheter PRN Diagnosis 1 Urinary retention (R 33.9) Referral Organization [facility] Referring Provider First Name Stefania Referring Provider Last Name Ej Referring Provider Speciality Family Pra ctice Referral Priority Routine Reason Home sleep study Diagnosis 1 Urinary retention (R 33.9) Referral Organization [facility] Referring Provider First Name Stefania Referring Provider Last Name Ej [facility] Referred Organization [facility] Referred Address [address], [place], [place],[address], Referred Provider Specialty Sleep Study General Notes Theresa Petit 2024 10:37:59 AM >sent to [facility] Referral Priority Routine Medications Medication SIG (Take, Route, Frequency, Duration) Notes Start Date End Date Status Atorvastatin Calcium 80 MG 1 tablet Orally Once a day for 30 days Active Tamsulosin HCl 0.4 MG TAKE 1 CAPSULE BY MOUTH AT BEDTIME for 30 Active Memantine HCl 5 MG 1 tablet Orally twice a day for 30 days Active Metoprolol Tartrate 50 MG 1 tab(s) orally 2 times a day for 90 days Active Entresto 24-26 MG 1 tablet Orally Twice a day Active Jardiance 10 MG 1 tablet Orally Once a day for 30 days Active DULoxetine HCl 60 MG 1 cap(s) orally once a day for 90 days Active Eliquis 5 MG TAKE 1 TABLET BY MOUTH 2 TIMES A DAY for 30 days Active Lansoprazole 30 MG TAKE 1 CAPSULE BY MOUTH ONCE DAILY for 30 Active Nystatin 885795 UNIT/GM 1 chely applied topically 3 times a day for 14 days Active Flonase Allergy Relief 50 MCG/ACT 1 spray(s) in each nostril once a day for 30 days Active Albuterol Sulfate HFA 108 (90 Base) MCG/ACT 2 INH inhaled every 4 hours for 30 days 05/07/2024 Active Spironolactone 25 MG 1 tablet Orally once a day for 30 days Active Dutasteride 0.5 MG 1 cap(s) orally once a day Active Famotidine 20 MG 1 tab(s) orally 2 times a day for 30 days Active Clopidogrel Bisulfate 75 MG 1 tablet Orally Once a day for 30 days Active Cephalexin 500 MG 2 capsules Orally twice a day Active Levocetirizine Dihydrochloride 5 MG 1 tab(s) orally once a day (in the evening) for 30 days Active traZODone HCl 50 MG 1 tab orally at bedtime for 90 days Active Aspirin 81 MG 1 tablet Orally Once a day Active Trelegy Ellipta 100 MCG-62.5 MCG-25 MCG/INH INHALE 1 PUFF ONCE DAILY for 30 *Please review and pick correct strength-formulati on from CytoPherxan options. If intended option is not shown, discontinue and re-order from Quick Search* Active Immunizations Vaccine Route Administration Date Status Comme nts Prevnar PCV-20 (Pneumococcal conjugate 20) IM Intramuscular 12/19/2023 Administered Fluzone High Dose IM Intramuscular 12/19/2023 Administered Social History Tobacco Use: Social History Observation Description Date Details (start date - stop date) Former Smoker NA - NA Smoking: Question Answer Notes Are you a: former smoker Problems Problem Type SNOMED Code ICD Code Onset Dates Problem Status W/U Status Risk Notes Problem 900585167 Mixed hyperlipidemia (E78.2) Active confirmed Problem 29495688 Essential (primary) hypertension (I10) Active confirmed Problem 619909726 Paroxysmal atria l fibrillation (I48.0) Active confirmed Problem 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, level unspecified, initial encounter (S88.921A) Active confirmed Problem Long-term current use of anticoagulant (942227482) 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 (Z79.01) Active confirmed Problem Long-term current use of antithrombotic (123677415063523) exterminator helper (current) use of antithrombotics/a ntiplatelets (Z79.02) Active confirmed Problem 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) Active confirmed Problem 790402760 Urinary retentio n (R33.9) Active confirmed Problem 045263964 Neuropathy (G62.9) Active confirmed Problem 103366935 GERD without esophagitis (K21.9) Active confirmed Problem 293640530 Seasonal allergies (J30.2) Active confirmed Problem 567010712 COPD exacerbatio n (J44.1) Active confirmed Problem Fatigue (34063864) Fatigue (R53.83) Active conf irmed Problem 74060980 Memory loss (R41.3) Active confirmed Problem 937199429 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) Active confirmed Problem 48538446 Chronic obstructive pulmonary disease, unspecified COPD type (J44.9) Active confirmed Problem 563366826 Chronic systolic congestive heart failure (I50.22) Active confirmed Problem 216697382 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) Active confirmed Problem 51106117 Ataxia (R27.0) Active confirmed Problem Heart failure (71574862) Acute on chronic congestive heart failure, unspecified congestive heart failure type (I50.9) Active confirmed Problem 033739660 Gouty arthritis (M10.9) Active confirmed Problem 73811113 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) Active confirmed Problem 787103213029 Daytime somnolence (R40.0) Active confirmed Problem 854043254 Acute systolic heart failure (I50.21) Active confirmed Problem 935623590 Systolic CHF, acute on chronic (I50.23) Active confirmed Problem 8575872006029 Benign prostatic hyperplasia with lower urinary tract symptoms (N40.1) Active confirmed Problem Renal artery stenosis (441226541) Renal artery stenosis (I70.1) Active confirmed Problem 526347929 Skin cancer (C44.90) Active confirmed Problem 052422979875648 Stenosis of left carotid artery (I65.22) Active confirmed Problem 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) (77799955872729) Heart failure and kidney disease due to high blood pressure (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) Active confirmed Problem 168296797 Stage 3a chronic kidney disease (CKD) (N18.31) Active confirmed Problem Chronic kidney disease stage 3 (disorder) (324341224) Chronic kidney disease with symptom management only, stage 3 (moderate) (N18.30) Active confirmed Problem Abdominal aortic aneurysm without rupture (disorder) (52455404) Abdominal aortic aneurysm (AAA) without rupture, unspecified part (I71.40) Active confirmed Problem 208014320 SAH (subarachnoi d hemorrhage) (I60.9) Active confirmed Problem Unilateral AKA, 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) Active confirmed Vital Signs Heart Rate 92 /min 06/11/2024 Temperature 97.7 degrees Fahrenheit 06/11/2024 Blood pressure diastolic 60 mm Hg 06/11/2024 Height 65 in 06/11/2024 Blood pressure systolic 104 mm Hg 06/11/2024 Weight 145 lbs 05/28/2024 BMI 24.13 kg/m2 05/28/2024 Encounters Encounter Location Date Provider Diagnosis [facility] [address] [place] [address] 02/06/2024 Stefania McNees [facility] [address] [place], [place] [address] 05/25/2024 Provider Migration [facility] [address] [facility] [address] [place], [place] [address] 08/15/2023 Stefania McNetricia Unilateral kevan HUBBARDh t S78.111A ; COPD exacerbation J44.1 ; 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 of shinnecock heart without angina pectoris I25.10 ; GERD without esophagitis K21.9 ; Essential (primary) hypertension I10 ; Mixed hyperlipidemia E78.2 ; Paroxysmal atrial fibrillation I48.0 ; Benign prostatic hyperplasia with lower urinary tract symptoms N40.1 ; Stage 3a chronic kidney disease (CKD) N18.31 ; Chronic systolic congestive heart failure I50.22 ; Abdominal aortic aneurysm (AAA) without rupture, unspecified part I71.40 ; Situational depression F43.21 ; SAH (subarachnoid hemorrhage) I60.9 and Non-recurrent acute serous otitis media of both ears H65.03 [facility] [address] [place] [address] 12/19/2023 Stefania Yaritzatricia Unilateral ISABELAA, kevanh t S78.111A ; Encounter for Medicare annual wellness exam Z00.00 ; 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 of shinnecock heart without angina pectoris I25.10 ; GERD without esophagitis K21.9 ; Essential (primary) hypertension I10 ; Mixed hyperlipidemia E78.2 ; Paroxysmal atrial fibrillation I48.0 ; Benign prostatic hyperplasia with lower urinary tract symptoms N40.1 ; Stage 3a chronic kidney disease (CKD) N18.31 ; Chronic systolic congestive heart failure I50.22 ; Situational depression F43.21 ; Chronic obstructive pulmonary disease, unspecified COPD type J44.9 and Encounter for immunization Z23 [facility] [address] [place] [address] 04/04/2024 Stefania Ej Influenza A J10.1 ; Systolic CHF, acute on chronic I50.23 and Hypoxia R09.02 [facility] [address] [place] [address] 04/30/2024 Stefania McNees Elevated PSA R97.20 ; Urinary retention R33.9 ; Fatigue, unspecified type R53.83 and Weakness R53.1 [facility] [address] [facility] [address] [place] [address] 05/28/2024 Stefania McNees Coronary artery dise ase involving shinnecock coronary artery of shinnecock heart without angina pectoris I25.10 ; Human metapneumovirus (hMPV) pneumonia J12.3 ; Other retention of urine R33.8 ; Benign prostatic hyperplasia with lower urinary tract symptoms N40.1 ; Acute systolic heart failure I50.21 ; Memory loss R41.3 and COPD exacerbation J44.1 [facility] [address] [place] [address] 06/11/2024 Stefania McNees Fatigue, unspecified type R53.83 ; Urinary retention R33.9 ; Snoring R06.83 and Daytime somnolence R40.0 [facility] [address] [place] [address] 07/28/2023 Stefania McNees Partial traumatic amputation of right lower leg, level unspecified, initial encounter S88.921A and Presence of artificial right leg (complete) (partial) Z97.13 [facility] [address] [place] [address] 03/07/2024 Stefania McNees Ataxia R27.0 and Partial traumatic amputation of right lower leg, level unspecified, initial encounter S88.921A [facility] [address] [facility] [address] [place] [address] 03/29/2024 Stefania McNees [facility] [address] [place] [address] 04/09/2024 Stefania McNees [facility] [address] [facility] [address] [place] [address] 04/15/2024 Stefania McNees [facility] [address] [facility] [address] [place] [address] 05/07/2024 Stefania McNees [facility] [address] [place] [address] 05/07/2024 Stefania McNees [facility] [address] [place] [address] 05/09/2024 Stefania McNees [facility] [address] [place] [address] 05/21/2024 Stefania McNees [facility] [address] [place] [address] 06/05/2024 Stefania McNees [facility] [address] [place] [address] 06/12/2024 Stefania McNees [facility] [address] [place] [address] 06/19/2024 Stefania McNees [facility] [address] [place] [address] 06/19/2024 Stefania McNees [facility] [address] [place] [address] 07/05/2024 Stefania McNees Yeast dermatitis B37 .2 [facility] [address] [facility] [address] [place] [address] 07/05/2024 Stefania McNees Assessments Encounter Date Diagnosis (ICD Code) Assessment Notes Treatment Notes Treatment Clinical Notes Section Notes 07/28/2023 Partial traumatic amputation of right lower leg, level unspecified, initial encounter (ICD-10 - S88.921A) 08/15/2023 COPD exacerbation (ICD-10 - J44.1) Discussed the etiology and expected course of COPD exacerbation. Discussed the rationale for antibiotic and steroid use and the importance of completing the prescription as prescribed. Discussed supportive care. Discussed the signs and symptoms of worsening infection that may indicate need for reassement in clinic/ED. 08/15/2023 Unilateral AKA, right (ICD-10 - S78.111A) Overall other chronic conditions are stable and he is doing very well with his recovery. Labs today, no med changes. RTC in 3 months for routine FU or sooner prn 12/19/2023 Encounter for Medicare annual wellness exam (ICD-10 - Z00.00) Given patient''s advanced age is not a candidate for typical healthcare screening such as colonoscopy. No recent falls. Up-to-date with vaccinations. Nonsmoker. 12/19/2023 Unilateral AKA, right (ICD-10 - S78.111A) Doing very well overall with good supportive system 03/07/2024 Ataxia (ICD-10 - R27.0) 04/04/2024 Influenza A (ICD-10 - J10.1) [facility] records reviewed and no further changes to medication list. Tamiflu listed as allergy due to hallucinations. Symptoms have resolved, he is euvolemic today on exam. Keep FU next month for routine med check. Sooner return precautions discussed 04/04/2024 Systolic CHF, acute on chronic (ICD-10 - I50.23) 04/30/2024 Urinary retention (ICD-10 - R33.9) Clear yellow urine draining to gravity. Advised family to call back urology for sooner FU appointment. Recommend leaving catheter in at this point until seen by urology. [facility] for f/c care educations and PT/OT to evaluate. Will check PSA and forward to urology as indicated 04/30/2024 Elevated PSA (ICD-10 - R97.20) 05/28/2024 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 of shinnecock heart without angina pectoris (ICD-10 - I25.10) [facility] records reviewed. No acute angina. Keep FU with cardiology. Discharge summary and medication list reviewed. Namenda added. No other changes. 05/28/2024 Human metapneumovirus (hMPV) pneumonia (ICD-10 - J12.3) Resolving. Dexamethasone given today. Stop smoking. Continue inhalers, nebs. Lung check in 2 weeks 06/11/2024 Urinary retention (ICD-10 - R33.9) Keep FU with urology later this week 06/11/2024 Fatigue, unspecified type (ICD-10 - R53.83) Likely multifactorial with chronic lung disease and multiple chronic conditions Trazodone could be contributing, cut dose in half Recommend sleep study, will arrange No indication to continue OT at this time. Will reconsider once fatigue improves 07/05/2024 Yeast dermatitis (ICD-10 - B37.2) 06/11/2024 Snoring (ICD-10 - R06.83) 05/28/2024 Other retention of urine (ICD-10 - R33.8) 04/30/2024 Fatigue, unspecified type (ICD-10 - R53.83) Overall looks great with good weight gain. Likely multifactorial with age, chronic medical conditions, recent flu illness, etc. Trazodone could be contributing, okay to break in half to see if daytime fatigue improves. Labs drawn, recommend home health for PT. RTC in 3 months, sooner precautions discussed 04/04/2024 Hypoxia (ICD-10 - R09.02) 03/07/2024 Partial traumatic amputation of right lower leg, level unspecified, initial encounter (ICD-10 - S88.921A) 12/19/2023 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 of shinnecock heart without angina pectoris (ICD-10 - I25.10) No acute angina 08/15/2023 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 of shinnecock heart without angina pectoris (ICD-10 - I25.10) 07/28/2023 Presence of artificial right leg (complete) (partial) (ICD-10 - Z97.13) 12/19/2023 GERD without esophagitis (ICD-10 - K21.9) Well controlled on PPI and H2 Kimberley. Okay to stop one of them if tolerated but must remain on one for GI protection 08/15/2023 GERD without esophagitis (ICD-10 - K21.9) 04/30/2024 Weakness (ICD-10 - R53.1) 06/11/2024 Daytime somnolence (ICD-10 - R40.0) 05/28/2024 Benign prostatic hyperplasia with lower urinary tract symptoms (ICD-10 - N40.1) F/c in place. Urine cx from ED is pending. Plan for TURP in 6 weeks 05/28/2024 Acute systolic heart failure (ICD-10 - I50.21) Euvolemic today on exam. Tolerating Entresto well. Keep FU with cardiology 12/19/2023 Essential (primary) hypertension (ICD-10 - I10) Blood pressure a little above goal. 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 Trial of Namenda. MOA and SE profile discussed. RTC in 2 weeks 12/19/2023 Paroxysmal atrial fibrillation (ICD-10 - I48.0) Rate well controlled. On Eliquis for anticoagulation, no signs of excessive bleeding 05/28/2024 COPD exacerbation (ICD-10 - J44.1) See above. 08/15/2023 Paroxysmal atrial fibrillation (ICD-10 - I48.0) 12/19/2023 Benign prostatic hyperplasia with lower urinary tract symptoms (ICD-10 - N40.1) Denies urinary symptoms 08/15/2023 Benign prostatic hyperplasia with lower urinary tract symptoms (ICD-10 - N40.1) 08/15/2023 Stage 3a chronic kidney disease (CKD) (ICD-10 - N18.31) 12/19/2023 Stage 3a chronic kidney disease (CKD) (ICD-10 - N18.31) Will check CMP to confirm stability. Avoid NSAIDs and nephrotoxic medications 12/19/2023 Chronic systolic congestive heart failure (ICD-10 - I50.22) Euvolemic on exam 08/15/2023 Chronic systolic congestive heart failure (ICD-10 - I50.22) 08/15/2023 Abdominal aortic aneurysm (AAA) without rupture, unspecified part (ICD-10 - I71.40) 12/19/2023 Situational depression (ICD-10 - F43.21) Well controlled on SNRI to changes made today 08/15/2023 Situational depression (ICD-10 - F43.21) 12/19/2023 Chronic obstructive pulmonary disease, unspecified COPD type (ICD-10 - J44.9) No acute resp symptoms. COntinue inhalers as above. 12/19/2023 Encounter for immunization (ICD-10 - Z23) 08/15/2023 SAH (subarachnoid hemorrhage) (ICD-10 - I60.9) 08/15/2023 Non-recurrent acute serous otitis media of both ears (ICD-10 - H65.03) Plan Of Treatment Pending Test Test Name Order Date Urinalysis 05/17/2023 Sleep Study 06/11/2024 Physical Therapy : Gait training and cor e strengthening 10/01/2022 Physical Therapy : Gait training and cor e strengthening 07/28/2023 Physical Therapy : Gait training and cor e strengthening 03/07/2024 COMPREHENSIVE METABOLIC PANEL (62425) CBC (INCLUDES DIFF/PLT) (6399) Next Appt Details Provider Name:Stefania Gilliland Albaro Michel, 07/30/2024 12:00:00 PM, [address], [address], [place], [address], Insurance Providers Payer Name Payer Address Payer Phone Subscriber Number Group Number Insured Name Patient Relationship to Insured Coverage Start Date Coverage End Date [place] [address] [place] [address] [id number] Ti Rodríguez Self - patient is the insured [facility] [address] [place] [address] [id number] Ti Rodríguez Self - patient is the insured [employer] [address] [place] [address] ACL Ti Rodríguez Self - patient is the insured Medications Administered Medication Instructions Date of Administration Dosage Notes Dexamethasone 4mg Injection 08/15/2023 4 mg Dexamethasone 4mg Injection 05/28/2024 4 mg Medical (General) History Medical History History ICD Code hypertension COPD Psoriasis, hyperlipidemia, BPH, CAD, CAB G, GERD, gout 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
--- OUTSIDE RECORDS SUMMARY | 2024-07-27 21:20 | XMS_ITS | Data Portability ---
Author Organization [facility] - [place] & [place] ADMIN Address [address] [place] [address] Care Team Providers Care Principal Consulting Engineer Name Role Phone SHERRY DOBSON Referring Provider Assessment Encounter Date Assessment Date Assessment LastModified [...] obtaining clearance from Dr. Howard, the patient's home support worker, due to the patient's history of heart [...] al resection of prostate (SURG) 2024 025 [email or web address] Not available 14:38:41 Imaging None recorded. Medication Orders dutasteride 0.5 mg capsule 2024 025 [facility], [address], [address], [place], [address], 11:06:24 Patient TargetsNo targets recorded. Patient InstructionsNo instructions recorded. Reason for Referral None Reported. Results Created Date Observation Date Name Description Value Unit Range Abnormal Flag Note LastModifiedBy Organization Detail LastModifiedTime Result Notes None recorded. Problems Name Problem SNOMED Code Status Onset Date Resolution Date Notes Provider Name and Address Organization Details Recorded Time Benign prostatic hyperplasi a with outflow obstructio n 117950581 Active 2024 MAYUR PUENTE MD [address], [place], [address] , [place] [facility] [place] & [place] 5 16:11:43 Retention of urine 606106477 Active 2024 MAYUR PUENTE MD [address], [place], [address] , [place] [facility] [place] & [place] 5 16:11:47 Lawrence hematuria 437558609 Active 2024 MAYUR PUENTE MD [address], [place], [address] , [place] [facility] [place] & [place] 5 17:37:13 Kidney disease 23174704 Active 2024 Sierra turner, [place] [facility] [place] & [place] 5 11:03:47 Hyperchole sterolemia 97931340 Active 2024 Sierra Chávez null, [place] [facility] [place] & [place] 5 11:03:56 Hypertensi ve disorder 16831117 Active 2024 Sierra turner, [place] [facility] [place] & [place] 5 11:04:03 Chronic obstructiv e pulmonary disease 72915596 Active 2024 Sierra turner, [place] [facility] [place] & [place] 5 11:04:09 Denture present 500710990 Active 2024 Sierra turner, [place] [facility] & [place] 5 11:04:20 Environmen gila allergy 818376773 Active 2024 Sierra Chávez null, [place] [facility] & [place] 5 11:04:29 Heart disease 46893171 Active 2024 Sierra turner, [place] [facility] & [place] 5 11:04:37 Myocardial infarction 64258250 Active 2024 Sierra turner, [place] [facility] & [place] 5 11:04:47 Lower urinary tract symptoms due to benign prostatic hypertroph y 6228403207357 1 Active [address], [place], [address] , [place] [facility] [place] & [place] 5 10:57:17 Problem Notes None recorded. Procedures Surgical History Date Name Laterality Status Provider Name and Address Organization Details Recorded Time 5 Cystoscopy-Mal e completed MD [address], [place], [address], [place] [facility] [place] & [place] 06/13/2024 17:35:45 5 Kidd Catheter Insertion completed Felisha Ulloa [place] [facility] [place] & [place] 06/13/2024 14:25:05 5 Cystoscopy-Mal e completed MD [address], [place], [address], [place] [facility] [place] 04/25/2024 10:56:51 5 TRUS completed MD [address], [place], [address], [place] [facility] [place] 04/25/2024 10:57:12 Imaging Results None recorded. Procedure [...] e) 50 mcg/actuati on nasal spray,suspe nsion Redig 1 spray every day by intranasa l [...] Updated DateTime 5 165.1 cm 24.6 kg/m2 93709.6 7 g 96 % 96 % 82 /min 160 mm[Hg] 75 mm[Hg] [facility] [place] 5 14:35:00 Social History None recorded. Functional [...] SNOMED-CT Code Diagnosis ICD10 Code Diagnosis Note [id number] MAYUR PUENTE MD [facility] [place] [address] 04/18/2024 09:52:42 04/18/2024 10:47:45 Benign prostatic hyperplasia with outflow obstruction 511439009 N40.1 I have instructed the patient to discontinu e oxybutynin immediatel y. We did not perform voiding trial today as this would likely be unsuccessf ul. He will continue tamsulosin and follow up next week for voiding trial with cystoscopy and prostate ultrasound . Retention of urine 72742 4002 R33.9 See above. We will attempt [employer]LE SQL DEVELOPER test at his follow up appointmen tashi Bravo hematuria 64866609 5 R31.0 likely secondary to Kidd trauma, however, given smoking history we will complete lower tract evaluation with cystoscopy . [id number] MAYUR PUENTE MD [facility] [address] [facility] [address] [place] [address] 04/25/2024 10:26:05 04/25/2024 11:03:18 Lower urinary tract symptoms due to benign prostatic hypertrophy 4204091954 9101 N40.1 Patient has declined Kidd replacemen [...] verbalized his understand ing. Retention of urine 16164 4002 R33.9 Patient successful ly completed voiding trial today and has declined further catheteriz ation. He will follow up in 6 weeks for PVR check. [id number] MAYUR PUENTE MD [facility] [address] [facility] [address] [place] [address] 05/16/2024 14:23:47 05/16/2024 16:25:31 Benign prostatic hyperplasia with outflow obstruction 291686034 N40.1 N13.8 I have instructed the patient to discontinu e oxybutynin immediatel y. We did not perform voiding trial today as this would likely be unsuccessf ul. He will continue tamsulosin and follow up next week for voiding trial with cystoscopy and prostate ultrasound . Retention of urine 82451 4002 R33.9 Patient successful ly completed voiding trial today and has declined further catheteriz ation. He will follow up in 6 weeks for PVR check. [id number] MAYUR PUENTE MD [facility] [address] [facility] [address] [place] [address] 06/13/2024 13:44:36 06/13/2024 14:21:15 Retention of urine 207879154 R33.9 will send urine for PCR [id number] MAYUR PUENTE MD [facility]-1 00 [address] [facility] [address] [place] [address] 06/13/2024 16:21:44 06/13/2024 17:10:35 Lawrence hematuria 100713576 R31.0 Flexible cystoscopy performed in office today showed bleeding from the prostate but no active bleeding or formed blood clots within the bladder lumen. A new 18 [place] catheter was placed over guidewire with 10 cc of sterile water in the balloon. This was irrigated to clear yellow urine. Retention of urine 79490 4002 R33.9 Patient will continue catheteriz ation for now. He was tentativel y scheduled for Transureth ral resection of the prostate in the upcoming months pending cardiac clearance. [id number] MAYUR PUENTE MD [facility]-1 00 [address] [facility] [address] [place] [address] 07/08/2024 13:18:24 07/08/2024 15:12:42 Lawrence hematuria 841923540 R31.0 Tried to irrigate Kidd cath; however, [...] ID Guarantor Name 04/18/2024 2 [place] [id number] Ti Rodríguez [id number] Ti Rodríguez 07/25/2024 1 [place] Ti Rodríguez [id number] Ti Rodríguez 07/25/2024 2 [place] [id number] Ti Rodríguez [id number] Ti Rodríguez Notes Date Note Type Note Provider Name and Address Organization Details Recorded Time 04/25/2024 text/html 04/25/24 23-ofca-zbp-male present to clinic for voiding trial with cystoscopy and prostate ultrasound. Voiding trial was attempted today and patient began voiding after only 60 cc was placed in the bladder. He remains on tamsulosin and reports that he discontinued the oxybutynin as instructed at his 1st visit. 04/18/25801897-degc-vxr -male present to clinic as new patient for ER ([facility]) visit on 04/08/24 decrease urine volume but [...] smoker 5-7 cigarettes per day. 04/08/24 CT/w ([facility]) kidneys and ureters: multiple Bosniack 1 renal cystic lesions defined as homogeneous and fluid density (-9 to 20 HU), no septation or calcifications, having rangel smooth and thin, largest cyst measures 1.1cm, no hydronephrosis. Urinary bladder unremarkable Enlarge prostate 6.8x4.9x6.7cm Cr 0.90, GFR 81, Hgb 15.7, Hct 46.702 UA pH 6.0, SG >=1.030, Blood-trace, 4 Cr 1.15, GFR 64, Hgb 16.3, Hct 47.97620 PSA 9.4 MAYUR ART, MD [address], [place], [address], [place] [facility] [place] & [place] 04/25/2024 10:59:03 05/16/2024 text/html 05/16/24 CC: 01-qbmn-qsr-male returns to clinic for follow up ER ([facility]) visit on 04/29/24 for increased abdominal discomfort [...] leakage. The patient has not seen a home support worker in years but has been managed by Renea Pagan with Dr. Loo in [facility]. 04/25/24 12-uxli-hnm-male present to clinic for voiding trial with cystoscopy and prostate ultrasound. Voiding trial was attempted today and patient began voiding after only 60 cc was placed in the bladder.He remains on tamsulosin and reports that he discontinued the oxybutynin as instructed at his 1st visit. 04/18/25807735-mrtk-wfm -male present to clinic as new patient for ER ([facility]) visit on 04/08/24 decrease urine volume but [...] mucus 3+04/25/24 TRUS volume 93.4 cc04/08/24 CT/w ([facility]) kidneys and ureters: multiple Bosniack 1 renal cystic lesions defined as homogeneous and fluid density (-9 to 20 HU), no septation or calcifications, having rangel smooth and thin, largest cyst measures 1.1cm, no hydronephrosis. Urinary bladder unremarkable Enlarge prostate 6.8x4.9x6.7cm Cr 0.90, GFR 81, Hgb 15.7, Hct 46.702 UA pH 6.0, SG >=1.030, Blood-trace, 4 Cr 1.15, GFR 64, Hgb 16.3, Hct 47.92488 PSA 9.4 MAYUR PUENTE MD [address], [place], [address], [place] [facility] [place] & [place] 05/16/2024 16:13:17 06/13/2024 text/html 06/13/24 83-year-old male presents as a work-in for gross hematuria. Kidd catheter was exchanged earlier today and initially drained clear, however, he returned with gross hematuria and clot passage. Attempts were made by nurse practitioner to replace the catheter which were unsuccessful.------ 0 05/16/24 CC: 61-mziv-ujp-male returns to clinic for follow up ER ([facility]) visit on 04/29/24 for increased abdominal discomfort [...] leakage. The patient has not seen a home support worker in years but has been managed by Renea Pagan with Dr. Loo in [facility]. 04/25/24 75-ummc-yfb-male present to clinic for voiding trial with cystoscopy and prostate ultrasound. Voiding trial was attempted today and patient began voiding after only 60 cc was placed in the bladder.He remains on tamsulosin and reports that he discontinued the oxybutynin as instructed at his 1st visit. 04/18/25801832-jqun-dvk -male present to clinic as new patient for ER ([facility]) visit on 04/08/24 decrease urine volume but [...] mucus 3+04/25/24 TRUS volume 93.4 cc04/08/24 CT/w ([facility]) kidneys and ureters: multiple Bosniack 1 renal cystic lesions defined as homogeneous and fluid density (-9 to 20 HU), no septation or calcifications, having rangel smooth and thin, largest cyst measures 1.1cm, no hydronephrosis. Urinary bladder unremarkable Enlarge prostate 6.8x4.9x6.7cm Cr 0.90, GFR 81, Hgb 15.7, Hct 46.702 UA pH 6.0, SG >=1.030, Blood-trace, 4 Cr 1.15, GFR 64, Hgb 16.3, Hct 47.25764 PSA 9.4 MAYUR PUENTE MD [address] [facility], [place], [address], [place] [facility] [place] & [place] 06/13/2024 17:41:46 07/08/2024 text/html 07/08/2024 83 yowm [...] catheter which were unsuccessful.------ 0 05/16/24 CC: 67-damo-uwi-male returns to clinic for follow up ER ([facility]) visit on 04/29/24 for increased abdominal discomfort [...] leakage. The patient has not seen a home support worker in years but has been managed by Renea Pagan with Dr. Loo in [facility]. 04/25/24 79-xwnj-wlh-male present to clinic for voiding trial with cystoscopy and prostate ultrasound. Voiding trial was attempted today and patient began voiding after only 60 cc was placed in the bladder.He remains on tamsulosin and reports that he discontinued the oxybutynin as instructed at his 1st visit. 04/18/25801899-zxmh-wab -male present to clinic as new patient for ER ([facility]) visit on 04/08/24 decrease urine volume but [...] mucus 3+04/25/24 TRUS volume 93.4 cc04/08/24 CT/w ([facility]) kidneys and ureters: multiple Bosniack 1 renal cystic lesions defined as homogeneous and fluid density (-9 to 20 HU), no septation or calcifications, having rangel smooth and thin, largest cyst measures 1.1cm, no hydronephrosis. Urinary bladder unremarkable Enlarge prostate 6.8x4.9x6.7cm Cr 0.90, GFR 81, Hgb 15.7, Hct 46.7004/08/24 UA pH 6.0, SG >=1.030, Blood-trace, 4 Cr 1.15, GFR 64, Hgb 16.3, Hct 47.52201 PSA 9.4 Lizzie Andrews, CELSO, [address], [place], [address], [facility] - [place] - [place] & [place] 07/08/2024 14:17:41
--- OUTSIDE RECORDS SUMMARY | 2024-07-27 21:20 | XMS_ITS | Continuity of Care Document ---
Author Organization [facility] & [facility]-100 Address [address] [place] [address] Care Team Providers Care Insurance Claims Supervisor Name Role Phone SHERRY DOBSON Referring Provider [...] prostatic hyperplasi a with outflow obstructio n 166293298 Active 2024 [place], [address] [facility] & [place] 5 16:11:43 Retention of urine 653706459 [facility] [facility] [address] [facility] & [place] 5 16:11:47 Lawrence hematuria 521366803 Active 2024 [facility] [address] [facility] & [place] 5 17:37:13 Kidney disease 04296661 Active 2024 Sierra Chávez [facility], [facility] & [place] 5 11:03:47 Hyperchole sterolemia 18791658 Active 2024 [place] [facility] [place] 5 11:03:56 Hypertensi ve disorder 29647907 Active 2024 Sierra Chávez null, [place] [facility] [place] 5 11:04:03 Chronic obstructiv e pulmonary disease 23091755 Active 2024 Sierra Chávez null, [place] [facility] & [place] 5 11:04:09 Denture present 473929940 Active 2024 Sierra Chávez null, [place] [facility] [place] 5 11:04:20 Environmen gila allergy 963882010 Active 2024 Sierra Chávez null[place] [facility] [place] 5 11:04:29 Heart disease 55401088 Active 2024 Sierra Chávez null[place] [facility] [place] 5 11:04:37 Myocardial infarction 29359879 Active 2024 [place] turner[place] [facility] [place] 5 11:04:47 Lower urinary tract symptoms due to benign prostatic hypertroph y 7269777314713 1 Active 2024 MAYUR PUENTE MD [address], [place], [address] , [place] [facility] [place] & [place] 5 10:57:17 Problem Notes None recorded. Procedures Surgical History Date Name Laterality Status Provider Name and Address Organization Details Recorded Time 5 Cystoscopy-Mal e completed MAYUR PUENTE MD [address], [place], [address], [place] [facility] [place] & [place] 06/13/2024 17:35:45 5 Kidd Catheter Insertion completed Felisha Ulloa [place] [facility] [place] & [place] 06/13/2024 14:25:05 5 Cystoscopy-Mal e completed MAYUR PUENTE MD [address], [place], [address], [facility] & [place] 04/25/2024 10:56:51 5 TRUS completed MD [address], [place], [address], [facility] & [place] 04/25/2024 10:57:12 Imaging Results None recorded. Procedure [...] e) 50 mcg/actuati on nasal spray,suspe nsion [place] 1 spray every day by intranasa l [...] SNOMED-CT Code Diagnosis ICD10 Code Diagnosis Note [id number] MAYUR PUENTE MD [facility]rology-1 00 [address] [facility] [address] [place] [address] 06/13/2024 13:44:36 06/13/2024 14:21:15 Retention of urine 854899244 R33.9 will send urine for PCR [id number] MAYUR PUENTE MD [facility]rology-1 00 [address] [facility] [address] [place] [address] 06/13/2024 16:21:44 06/13/2024 17:10:35 Lawrence hematuria R31.0 Flexible cystoscopy performed in office today showed bleeding from the prostate but no active bleeding or formed blood clots within the bladder lumen. A new 18 Kiswahili catheter was placed over guidewire with 10 cc of sterile water in the balloon. This was irrigated to clear yellow urine. Retention of urine 73257 4002 R33.9 Patient will continue catheteriz ation for now. He was tentativel y scheduled for Transureth ral resection of the prostate in the upcoming months pending cardiac clearance. [id number] MAYUR PUENTE MD [facility] Urology-[address] [place] [address] 07/08/2024 13:18:24 07/08/2024 15:12:42 Lawrence hematuria 575321353 R31.0 Tried to irrigate Kidd cath; however, [...] Calderon Member ID Guarantor Name 07/08/2024 1 [place] Ti Rodríguez [id number] Ti Rodríguez 07/08/2024 2 [place]) [id number] Ti Rodríguez [id number] Ti Rodríguez Notes Date Note Type [...] catheter which were unsuccessful.------ 0 05/16/24 CC: 20-tkmz-gqp-male returns to clinic for follow up ER ([facility]) visit on 04/29/24 for increased [...] leakage. The patient has not seen a balloon maker in years but has been managed by Renea Pagan with Dr. Loo in [facility]. 04/25/24 40-hsni-ehm-male present to clinic for voiding trial with cystoscopy and prostate ultrasound. Voiding trial was attempted today and patient began voiding after only 60 cc was placed in the bladder.He remains on tamsulosin and reports that he discontinued the oxybutynin as instructed at his 1st visit. 04/18/25807146-wswr-ydy -male present to clinic as new patient for ER ([facility]) visit on 04/08/24 decrease urine [...] mucus 3+04/25/24 TRUS volume 93.4 cc04/08/24 CT/w ([facility]) kidneys and ureters: multiple Bosniack [...] Cr 1.15, GFR 64, Hgb 16.3, Hct 47.22465 PSA 9.4 Lizzie Andrews, CELSO, [address], [place], [address], [facility] - [place] & [place] 07/08/2024 14:17:41
[2024-07-28] VITALS (21 sets, daily range): BP systolic 107–161; BP diastolic 48–93; PULSE 7–88; RESP 13–27; TEMP 36.6–37.6; O2SAT 91–97; BMI 25.7; BMI 26.5
[2024-07-28] MEDS: IPRATROPIUM/ALBUTEROL 3 ML NEB IH ×4 (00:09→18:37)
[2024-07-28 06:14] LABS: POC Glucose,Bedside 102 (70-110)
[2024-07-28] MEDS: FLUTICASONE/UMECLIDIN/VILANTER 100/62.5/25MCG INHALER 1 PUFF IH (06:39)
--- NOTE | 2024-07-28 07:48 | XR_ITS ---
PROCEDURE INFORMATION: Exam: XR Chest Exam date and time: 07/28/2024 9:08 AM Age: 83 years old Clinical indication: Cough; Additional info: Productive cough TECHNIQUE: Imaging protocol: Radiologic exam of the chest. Views: 1 view. COMPARISON: CR XR CHEST PORTABLE 07/26/2024 8:42 PM FINDINGS: Lungs: Hazy airspace opacities in right lower lobe could be attributed to atelectasis versus developing pneumonia/aspiration in the appropriate clinical context. Pleural spaces: Unremarkable. No pleural effusion. No pneumothorax. Heart/Mediastinum: Postoperative changes from prior coronary artery bypass graft. Bones/joints: Sternotomy wires are intact. IMPRESSION: Hazy airspace opacities in right lower lobe could be attributed to atelectasis versus developing pneumonia/aspiration in the appropriate clinical context.
[2024-07-28] MEDS: EMPAGLIFLOZIN 10MG TABLET 10 MG PO (08:05)
[2024-07-28] MEDS: OXYBUTYNIN 5MG TAB 5 MG PO ×2 (08:05→20:26)
[2024-07-28] MEDS: METOPROLOL TARTRATE 50MG TABLET 50 MG PO ×2 (08:05→20:25)
[2024-07-28] MEDS: SACUBITRIL/VALSARTAN 24-26MG TABLET 1 EACH PO ×2 (08:05→20:25)
[2024-07-28] MEDS: AMIODARONE 200MG TABLET 400 MG PO ×2 (08:06→20:26)
[2024-07-28] MEDS: SPIRONOLACTONE 25MG TABLET 25 MG PO (08:06)
[2024-07-28] MEDS: ASPIRIN EC 81MG TABLET 81 MG PO (08:06)
[2024-07-28] MEDS: DULOXETINE 30MG CAPSULE.DR 60 MG PO (08:06)
[2024-07-28] MEDS: APIXABAN 5MG TABLET 5 MG PO ×2 (08:06→20:25)
[2024-07-28] MEDS: CLOPIDOGREL 75MG TAB 75 MG PO (08:07)
[2024-07-28] MEDS: MEMANTINE 10MG TABLET 5 MG PO ×2 (08:09→20:26)
--- NOTE | 2024-07-28 08:33 | PC.NURSE ---
pt did not like breakfast tray. pt was offered other choices and asked if there was anything he would want for breakfast. pt kindly refused and requested to just have some coffee. pt was given coffee upon request. pt also does not want a nourishment supplement. will continue to encourage to eat. call light is within reach and bed alarm is on.
[2024-07-28 08:43] LABS: Microscopic, Urine URINE MICROSCOPIC (MICROSCOPIC)
[2024-07-28 08:46] LABS: Basophils % 0.3 % (0.1-2.0); Eosinophils % 0.6 % (0.1-12.0); Hematocrit 34.7 % (42.0-52.0); Hemoglobin 11.3 g/dL (14.1-18.0); Immature Granulocytes # 0.04 10^3uL; Immature Granulocytes % 0.6 %; Lymphocytes # 1.1 K/mm3 (0.7-4.5); Mean Corpuscular HGB Conc 32.6 g/dL (31.8-35.4); Mean Corpuscular Hemoglobin 30.6 pg (27.0-31.2); Mean Platelet Volume 10.1 fl (7.4-10.4); Monocytes # 0.5 K/mm3 (0.1-1.0); Monocytes % 6.5 % (1.7-9.3); Neutrophils # 5.4 K/mm3 (1.8-7.8); Nucleated Red Blood Cells # 0 10^3/uL; Nucleated Red Blood Cells % 0 %; Platelet Count 191 K/mm3 (142-424); Red Blood Count 3.69 M/mm3 (4.60-6.20); Red Cell Distribution Width 16.3 % (11.5-17.5); Red Cell Distribution Width-SD 55.8 fL; White Blood Count 7.1 K/mm3 (4.8-10.8)
[2024-07-28 08:59] LABS: Alanine Aminotransferase 11 U/L (12-78); Albumin Level 3.1 g/dl (3.5-5.0); Albumin/Globulin Ratio 1.1 (1.1-1.8); Alkaline Phosphatase 107 U/L (38-126); Anion Gap 7.8 mEq/L (5-15); Aspartate Amino Transferase 16 U/L (17-59); Bilirubin,Total 0.9 mg/dl (0.2-1.3); Blood Urea Nitrogen 6 mg/dl (9-20); Calcium 8.4 mg/dl (8.4-10.2); Carbon Dioxide 25 mmol/L (22.0-30.0); Chloride 105 mmol/L (98-107); Creatinine Clearance Estimated 49 mL/min (50-200); Estimated Glomerular Filt Rate 108 ml/min (>60); GFR (African American) 131 ML/MIN (>60); Globulin 2.7 g/dL (1.3-3.2); Glucose 98 mg/dl (74-100); Potassium 3.8 mmoL/L (3.5-5.1); Sodium 134 mmol/L (136-145); Total Protein,Serum 5.8 g/dl (6.3-8.2)
[2024-07-28 09:29] LABS: Thyroid Stimulating Hormone 0.14 uIU/mL (0.465-4.68)
[2024-07-28 09:31] LABS: Free T4 (Free Thyroxine) 1.59 ng/dl (0.78-2.19)
--- NOTE | 2024-07-28 09:32 | PC.NURSE ---
pt has prosthetic rle, but does not have it with him at this time.
[2024-07-28 10:22] LABS: Appearance,Urine CLEAR (Clear); Bilirubin,Urine Negative (Negative); Blood, Urine 2+ (Negative); Color,Urine YELLOW (Yellow); Glucose,Urine (UA) 3+ (Negative); Ketones,Urine Negative (Negative); Leukocyte Esterase,Urine 1+ (Negative); Nitrate,Urine Negative (Negative); Protein,Urine TRACE (Negative); Specific Gravity, Urine 1.015 (1.005-1.030); Urobilinogen,Urine 0.2 EU/dl (0.2)
[2024-07-28] MEDS: DOXYCYCLINE HYCL 100 MG TABLET PO ×2 (10:48→20:25)
[2024-07-28 11:00] LABS: Bacteria,Urine 2+ /lpf; Squamous Epithelial Cell,Urine Occasional #/hpf (0-5)
[2024-07-28 11:04] LABS: POC Glucose,Bedside 99 (70-110)
--- NOTE | 2024-07-28 15:38 | PC.NURSE ---
Patient has appeared to rest/nap in bed periodically this shift . He is esy to awaken. pt is a/o x 3. pt need occassional reorientation to situation. lungs remain clear t/o. pt has had a less producitve cough this shift compared to yesterday. bowel sounds are active t/o. pt has not had a bm since admission. pt has no edema or wounds noted to lle. rle is a previous bka. pt had sutures to r eyebrow from approx 07/10. r/o received this am from Dr Catalan to remove sutures. pt has had a poor appetite since admission, stating that nothing tastes good. multiple foods have been brought by staff and family to try and entice him to eat. pt has eaten very small amounts of each item. nad noted, frequently this shift pt has been noted to be joking and cutting up with staff. pt has a chronic kdid that was replaced on 07/27. kidd is noted to be draining clear yellow urine.
--- NOTE | 2024-07-28 15:44 | PC.NURSE ---
Patient has appeared to rest/nap in bed periodically this shift . He is easy to awaken. pt is a/o x 3. pt need occasional reorientation to situation. lungs remain clear t/o. pt has had a less productive cough this shift compared to yesterday. bowel sounds are active t/o. pt has not had a bm since admission. pt has no edema or wounds noted to lle. rle is a previous bka. pt had sutures to r eyebrow from approx 07/10. r/o received this am from Dr Catalan to remove sutures. pt has had a poor appetite since admission, stating that nothing tastes good. multiple foods have been brought by staff and family to try and entice him to eat. pt has eaten very small amounts of each item. nad noted, frequently this shift pt has been noted to be joking and cutting up with staff. pt has a chronic kidd that was replaced on 07/27. kidd is noted to be draining clear yellow urine.
[2024-07-28 16:25] LABS: POC Glucose,Bedside 107 (70-110)
--- NOTE | 2024-07-28 18:24 | PC.NURSE ---
catheter care was given, brief changed and patient was pulled up in the bed for comfort. pt stated no more needs at this time. call light is within reach.
--- NOTE | 2024-07-28 19:06 | PC.NURSE ---
pt is on aspiration precautions. pt HOB is to be at least 30 degrees for meals and 30 mins after. this protocol was followed today. will be documented QShift.
[2024-07-28 19:46] LABS: POC Glucose,Bedside 99 (70-110)
[2024-07-28] MEDS: TAMSULOSIN 0.4MG CAPSULE 0.4 MG PO (20:25)
[2024-07-28] MEDS: TRAZODONE 50MG TABLET 100 MG PO (20:27)
[2024-07-28] MEDS: ATORVASTATIN 40MG TABLET 80 MG PO (20:27)
[2024-07-28] MEDS: FINASTERIDE 5MG TABLET 5 MG PO (20:27)
--- NOTE | 2024-07-28 22:38 | P.PN_ITS ---
Subjective *Date: 07/28/24 *Time: 22:38 Interval history: Patient feeling well today, no complaints. But does look weak, not eating much. Found to have UTI. Started ceftriaxone. N.p.o. at midnight for ICD in the morning. Exam Data for Last 24 hours Vital signs and Labs for Last 24 Hours: Temp Pulse Resp BP Pulse Ox O2 Del Method 99.2 F 84 27 H 114/66 92 L Room Air 07/28/24 20:00 07/28/24 20:00 07/28/24 20:00 07/28/24 20:00 07/28/24 20:00 07/28/24 21:00 Laboratory Results - last 24 hr 07/28/24 05:55: POC Glucose 102 07/28/24 08:08: Urine Color Yellow, Urine Appearance Clear, Urine pH 8.0, Ur Specific [place] 1.015, Urine Protein Trace, Urine Glucose (UA) 3+, Urine Ketones Negative, Urine Blood 2+ A, Urine Nitrate Negative, Urine Bilirubin Negative, Urine Urobilinogen 0.2, Ur Leukocyte Esterase 1+ A, Urine RBC 5-10, Urine WBC 10-20, Ur Squamous Epith Cells Occasional, Urine Bacteria 2+ 07/28/24 08:10: WBC 7.1, RBC 3.69 L, Hgb 11.3 L, Hct 34.7 L, MCV 94.0, MCH 30.6, MCHC 32.6, RDW 16.3, Plt Count 191, MPV 10.1, Neut % (Auto) 76.0, Lymph % (Auto) 16.0, [place] % (Auto) 6.5, Eos % (Auto) 0.6, Baso % (Auto) 0.3, Neut # (Auto) 5.4, Lymph # (Auto) 1.1, [place] # (Auto) 0.5, Eos # (Auto) 0.0, Baso # (Auto) 0.0, Sodium 134 L, Potassium 3.8, Chloride 105, Carbon Dioxide 25, Anion Gap 7.8, BUN 6 L, Creatinine 0.70, Estimated Creat Clear 49, Estimated GFR 108, Est GFR ( Amer) 131, Glucose 98, Calcium 8.4, Total Bilirubin 0.9, AST 16 L, ALT 11 L, Alkaline Phosphatase 107, Total Protein 5.8 L, Albumin 3.1 L, Globulin 2.7, Albumin/Globulin Ratio 1.1, TSH 0.14 L D, Free T4 1.59 07/28/24 10:57: POC Glucose 99 07/28/24 16:16: POC Glucose 107 07/28/24 19:30: POC Glucose 99 I & O for Last 24 hours: Intake & Output 07/25/24 07/26/24 07/27/24 07/28/24 23:59 23:59 23:59 23:59 Intake Total 843.109 / 843.109 240 / 240 Output Total 50 / 70 985 / 1285 1465 / 1465 Balance -50 / 80 -141.891 / -441.891 -1225 / -1225 Weight 59.8 kg 59.8 kg 59.4 kg Microbiology Reports for the Last 24 Hours: Microbiology 07/26/24 22:47 Rectum CRE Surveillance Culture - Final Negative Constitutional Constitutional: no acute distress *Routine HEENT Exam Head: Present normocephalic Eye: Present EOMI and PERRL ENT: Present mucous membranes moist *Routine Neck Exam Neck: Present supple; Absent lymphadenopathy *Routine Respiratory Exam Respiratory: Present CTA bilaterally *Routine Cardiovascular Exam Cardiovascular: Present RRR *Routine Abdominal Exam Abdominal: Present soft and normoactive bowel sounds; Absent tenderness *Routine Extremities Exam Extremities: Absent cyanosis, clubbing or edema Comments: Right BKA. *Routine Skin Exam Skin: Present warm; Absent rash *Routine Neurological Exam Neurological: Present alert and oriented X3 Assessment and Plan *Assessment and plan (1) CAD (coronary artery disease): Status: Chronic Qualifiers: Coronary Disease-Associated Artery/Lesion type: [place] artery [place] vs. transplanted heart: [place] heart Associated angina: without angina Qualified Code(s): I25.10 - Atherosclerotic heart disease of [place] coronary artery without angina pectoris Category: Medical Code(s): I25.10 - Atherosclerotic heart disease of [place] coronary artery without angina pectoris (2) HTN (hypertension): Status: Chronic Qualifiers: Hypertension type: essential hypertension Qualified Code(s): I10 - Essential (primary) hypertension Category: Medical Code(s): I10 - Essential (primary) hypertension (3) HLD (hyperlipidemia): Status: Chronic Qualifiers: Hyperlipidemia type: mixed hyperlipidemia Qualified Code(s): E78.2 - Mixed hyperlipidemia Category: Medical Code(s): E78.5 - Hyperlipidemia, unspecified (4) HFrEF (heart failure with reduced ejection fraction): Status: Acute Category: Medical Code(s): I50.20 - Unspecified systolic (congestive) heart failure (5) BPH without obstruction/lower urinary tract symptoms: Status: Acute Category: Medical Code(s): N40.0 - Benign prostatic hyperplasia without lower urinary tract symptoms (6) Stenosis of carotid artery: Status: Acute Qualifiers: Laterality: bilateral Qualified Code(s): I65.23 - Occlusion and stenosis of bilateral carotid arteries Category: Medical Code(s): I65.29 - Occlusion and stenosis of unspecified carotid artery (7) PAD (peripheral artery disease): Status: Chronic Category: Medical Code(s): I73.9 - Peripheral vascular disease, unspecified Plan Ti Rodríguez is a 83-year-old man with ischemic cardiomyopathy, CABG, recent PCI x 2 SVG to RCA and D1 presenting after a LifeVest shock. Device interroga fabiana, interpreted as an appropriate shock due to ventricular tachycardia. #V. tach #LifeVest discharge ? Started on amiodorone drip, converted to NSR. - Transitioned to PO amiodorone 400mg BID. - Discussed with Dr. Howard, will get ICD on Monday. - Follow-up ECHO. #Weakness #UTI - Replaced chronic kidd catheter. ? Started ceftriaxone day 02/24. Atrial fibrillation, chronic ? Currently rate controlled. -Beta-natalie -DOAC Heart failure reduced ejection fraction Ischemic cardiomyopathy -Switch beta-natalie to Toprol -Jardiance -Spironolactone -Entresto -Lasix -Increase to goal dosing Anemia - Iron panel - If iron deficient give IV iron for improvement of heart failure symptoms Coronary artery disease CABG PCI to SVG x 2 RCA and D1 - Dual antiplatelet therapy - High intensity statin - LDL goal 55 - Add Zetia if not at goal
--- NOTE | 2024-07-28 22:49 | PC.NURSE ---
SRNA report called @22:50 from Uma to Allison MOORE
--- NOTE | 2024-07-28 23:07 | PC.NURSE ---
Report received from Abdirahman Brooke RN in ICU at 22:55. Patient's care will be transferred over to fl in the Medical-Surgical department. Patient to reside in room 207.
--- NOTE | 2024-07-28 23:15 | PC.NURSE ---
Patient D/C from ICU unit to [facility] unit @23:14
[2024-07-28] MEDS: CEFTRIAXONE 1 GM 1 GM in 0.9 % SODIUM CHLORIDE 50 ML IV (23:25)
[2024-07-29] VITALS (18 sets, daily range): BP systolic 87–158; BP diastolic 50–77; PULSE 58–85; RESP 14–19; TEMP 36.6–37; O2SAT 93–100; BMI 26.3
[2024-07-29 06:31] LABS: POC Glucose,Bedside 95 (70-110)
[2024-07-29] MEDS: IPRATROPIUM/ALBUTEROL 3 ML NEB IH ×4 (06:44→23:38)
[2024-07-29] MEDS: FLUTICASONE/UMECLIDIN/VILANTER 100/62.5/25MCG INHALER 1 PUFF IH (06:45)
[2024-07-29 06:57] LABS: Basophils % 0.4 % (0.1-2.0); Eosinophils # 0.1 Kmm3 (0.0-0.4); Hematocrit 32.2 % (42.0-52.0); Hemoglobin 10.4 g/dL (14.1-18.0); Immature Granulocytes # 0.07 10^3uL; Immature Granulocytes % 0.9 %; Lymphocytes # 1.4 K/mm3 (0.7-4.5); Lymphocytes % 18.3 % (10-50); Mean Corpuscular HGB Conc 32.3 g/dL (31.8-35.4); Mean Corpuscular Hemoglobin 30.3 pg (27.0-31.2); Mean Corpuscular Volume 93.9 fl (80-94); Mean Platelet Volume 10.1 fl (7.4-10.4); Monocytes # 0.5 K/mm3 (0.1-1.0); Monocytes % 6.8 % (1.7-9.3); Neutrophils # 5.7 K/mm3 (1.8-7.8); Neutrophils % 72.6 % (37.0-80.0); Nucleated Red Blood Cells # 0 10^3/uL; Nucleated Red Blood Cells % 0 %; Platelet Count 214 K/mm3 (142-424); Red Blood Count 3.43 M/mm3 (4.60-6.20); Red Cell Distribution Width 16.4 % (11.5-17.5); Red Cell Distribution Width-SD 56.7 fL; White Blood Count 7.8 K/mm3 (4.8-10.8)
[2024-07-29 07:14] LABS: Albumin Level 2.8 g/dl (3.5-5.0); Chloride 107 mmol/L (98-107); Potassium 3.8 mmoL/L (3.5-5.1); Sodium 133 mmol/L (136-145)
[2024-07-29 07:16] LABS: Anion Gap 4.8 mEq/L (5-15); Blood Urea Nitrogen 7 mg/dl (9-20); Carbon Dioxide 25 mmol/L (22.0-30.0); Creatinine Clearance Estimated 50 mL/min (50-200); Estimated Glomerular Filt Rate 93 ml/min (>60); GFR (African American) 112 ML/MIN (>60)
[2024-07-29 07:17] LABS: Alanine Aminotransferase 12 U/L (12-78); Albumin/Globulin Ratio 1.1 (1.1-1.8); Alkaline Phosphatase 113 U/L (38-126); Aspartate Amino Transferase 18 U/L (17-59); Bilirubin,Total 0.7 mg/dl (0.2-1.3); Calcium 8.4 mg/dl (8.4-10.2); Globulin 2.6 g/dL (1.3-3.2); Glucose 102 mg/dl (74-100); Total Protein,Serum 5.4 g/dl (6.3-8.2)
--- NOTE | 2024-07-29 08:11 | IR_ITS ---
APPROVED REPORT Patient Location: Inpatient Trenching Machine Operator: OLIVIER Obregon RT (R) PROCEDURES 1. Pocket formation for biventricular pacemaker generator with cardiac resynchronization/defibrillator therapy. 2. Placement of atrial sensing and pacing lead into the right atrial appendage. 3. Placement of a right ventricular sensing, pacing and shocking lead in the right ventricular apex. 4. Placement of left ventricular sensing pacing lead via the coronary sinus. 5. Permanent cardiac resynchronization therapy with ICD implantation/biventricular pacemaker. INDICATION Systolic Congestive Heart Failure, ejection <35%, symptomatic ventricular tachycardia, [place] Heart Assoication Class 3 Congestive Heart Failure, Symptomatic bradycardia, Anticipated RV pacing at least 40% Informed consent was obtained prior to the procedure. COMPLICATIONS NONE Estimated Blood Loss: LESS THAN 10 ML TECHNIQUE 1% Lidocaine with epinephrine used to anesthetized the left anterior aspect of the chest. Scalpel was used to make the initial cutaneous incision while electrocautery was used to dissect down tinto the fascia. The fascia was lifted off the pectoralis muscle and digitally manipulated creating a pocket for the defibrillator. The patient was then placed in Trendelenburg position and the subclavian vein was accessed 3 times via the Selinger technique. A 8 Swazi sheath was placed under fluoroscopic guidance into the subclavian vein. The dilator was removed from the sheath. Using fluoroscopic guidance, the ventricular lead was placed into the right ventricular apex, screwed and secured into place. Electronic interrogation proved acceptable thresholds and voltage within the lead. Using 3-0 silk, the ventricular lead was then secured into place and sheath peeled away. Following this, a 9.5 Swazi sheath and dilator was then placed over one of the wires while keeping the other wire in place within the subclavian vein. The dilator was removed from the sheath. Using fluoroscopic guidance, contrast was used to visualize the coronary sinus, the left ventricular lead was placed into the coronary sinus. Electronic interrogation proved acceptable thresholds and voltage within the lead. Using 3-0 silk, the left ventricular lead was then secured into place and sheath peeled away.An additional 6 Swazi fresh sheath and dilator was placed over the existing wire. Using fluoroscopic guidance, the atrial lead was then placed into the right atrial appendage and screwed and secured in place. Electrical interrogation demonstrated acceptable thresholds and voltage number. The atrial lead was then secured into place using 3-0 silk and sheath peeled away. 1 gram of Ancef was used to flush the pocket. All 3 leads were connected to generator and tested via computer. The defibrillator then secured to the fascia. Monocryl was used to close the subcutaneous layers while [place] were used to close the cutaneous layer. A pressure dressing was placed and the patient was transferred to the postop holding area in stable condition for postoperative care. INTERROGATION Generator Model number: nothingGrinder HF [id number] Generator Serial number: [id number] Atrial lead model number: Tendril STS [id number] Atrial lead serial number: [id number] P-wave: 4.0 mV Impedance: 400 Ohms Threshold: 0.5V @ 0.4ms Right Ventricular lead model number: Optisure [id number] Right Ventricular lead serial number: [id number] R-wave: Greater than 12 mV Impedance: 624 Ohms Threshold: 0.5V @ 0.4ms Left Ventricular lead model number: Quartet [id number] Left Ventricular lead serial number: [id number] R-wave: Impedance: 1080 Ohms Threshold: 1.0V @ 1.0ms D1-2 (LV1) Pacing Parameters: Mode: DDDR Base/Max Track:70 ppm / 130 ppm No diaphragmatic stimulation at 10 volts. IMPRESSION 1. Successful Pocket formation for biventricular pacemaker generator with cardiac resynchronization/defibrillator therapy. 2. Successful placement of right atrial sensing and pacing lead into the right atrial appendage. 3. Successful placement of a right ventricular sensing, pacing and shocking lead in the right ventricular apex. 4. Successful placement of left ventricular sensing pacing lead via the coronary sinus. 5. Successful permanent cardiac resynchronization plus AICD generator device. PLAN 1. Postop wound care. Electronically signed by : Claude Howard MD 07/30/2024 14:10:07
[2024-07-29] MEDS: SACUBITRIL/VALSARTAN 24-26MG TABLET 1 EACH PO ×2 (09:31→20:38)
[2024-07-29] MEDS: OXYBUTYNIN 5MG TAB 5 MG PO ×2 (09:31→20:40)
[2024-07-29] MEDS: EMPAGLIFLOZIN 10MG TABLET 10 MG PO (09:31)
[2024-07-29] MEDS: DOXYCYCLINE HYCL 100 MG TABLET PO (09:31)
[2024-07-29] MEDS: SPIRONOLACTONE 25MG TABLET 25 MG PO (09:32)
[2024-07-29] MEDS: MEMANTINE 10MG TABLET 5 MG PO ×2 (09:32→20:39)
[2024-07-29] MEDS: DULOXETINE 30MG CAPSULE.DR 60 MG PO (09:32)
[2024-07-29] MEDS: AMIODARONE 200MG TABLET 400 MG PO ×2 (09:32→20:40)
--- NOTE | 2024-07-29 11:26 | HMH.PTEV ---
Physical Therapy Evaluation Rehab PT IP Evaluation Start: 07/27/24 08:56 Freq: .once Status: Active Protocol: Document 07/29/24 11:12 CHELSEA (Rec: 07/29/24 11:26 CHELSEA [id number]) Subjective/History History History Per H&P: 83-year-old man ischemic cardiomyopathy currently wearing a LifeVest comes to the ER following shock. States he was sitting at dinner when he felt a sudden massive shock coming from his device. He did not have any prodromal symptoms prior to the delivery of the shock. Denies any chest pain, shortness of breath, lightheadedness or dizziness. Denies palpitations. Only complaint right now is paresthesias going down his leg. Subjective Subjective Pt reports he lives in a single-story home with his daughter. Pt's daughter available to assist as needed at home. Pt normally uses a w/c and performs stand-pivot transfer with or without his prosthesis. Pt normally IND with transfers but requires assistance/ supervision with ambulation using a RW. New diagnosis of No cancer in past 12 months? [facility] How much help from another person do you currently need... Turning from your None back to your side while in a flat bed without using bedrails? Moving from lying on None back to sitting on the side of a flat bed without using bedrails? Moving to and from a None bed to a chair ( including a wheelchair)? Standing up from a None chair using your arms? (e.g., wheelchair, bedside chair) Walking in hospital A little room? Climbing 3-5 steps A lot with a railing? Mobility Score 21 Mobility Level [place] [id number] Walk 10 steps or more Mobility Calculator Rehab PT IP Eval Objective Appearance Patient Behavior Appropriate,Cooperative Patient Orientation Person,Place,Situation Difficulty following none instructions Speech Pattern Clear Ambulation Patient Able to No Ambulate Balance Ability to Arise Able, uses arms to help Sitting Balance Steady, safe Standing Balance Unsteady Transfers Bed Transfer Ability Supervision/Stand by Sit to Stand Bed Supervision/Stand by Transfer Ability Sit to Stand Chair Supervision/Stand by Transfer Ability Rehab PT IP prob,goals,plan Problems Date of Evaluation: 07/29/24 Rehab Potential Rehab Potential Innapropriate for Skilled Therapy Discharge Plan PT Discharge Plan Prosthesis not present to perform ambulation tasks (pt reports his prothesis needs adjusted) but pt performed a stand-pivot transfer with LLE from EOB to recliner. Pt demonstrated transfer with supervision. Pt is at his baseline with transfers. Pt would benefit from HH or OP PT to perform gait training tasks once prostheses is fit. Pt not appropriate for acute care PT d/t baseline mobility. Eval Complexity Eval Charge Codes 98437 - Moderate Complexity PHYSICIAN CERTIFICATION: I certify the specified therapy services for Ti Rodríguez are required, authorized, and reviewed every 30 days.
[2024-07-29 11:37] LABS: POC Glucose,Bedside 96 (70-110)
--- NOTE | 2024-07-29 13:00 | EXP.PULM.CON ---
History of Present Illness History of present illness: Mr. Rodríguez is a 83-year-old male with history of cardiomyopathy reduced EF to 35%, currently wearing LifeVest presented to the ER after he was shocked by his LifeVest. Pulmonary was consulted today is concerning for pneumonia and hemoptysis. [facility] Disclaimer: The information contained in this section may have been updated after the patient was seen, as this information can be updated by other users. Medical History (Updated 07/29/24 @ 13:08 by Elizabeth Andino MD) Hemoptysis Pneumonia Atypical angina Subdural hemorrhage Swelling of lower leg Dehiscence of operative wound Obesity (BMI 30.0-34.9) Stenosis of carotid artery Left carotid bruit BPH without obstruction/lower urinary tract symptoms BPH (benign prostatic hyperplasia) CALEB (renal artery stenosis) HFrEF (heart failure with reduced ejection fraction) CHF (congestive heart failure) Dyspnea HLD (hyperlipidemia) HTN (hypertension) CAD (coronary artery disease) Abdominal aortic aneurysm CKD (chronic kidney disease) Atrial fibrillation Surgical History H/O fasciotomy Family History Other No significant family history Social History Smoking Status: Current every day smoker tobacco type: cigarettes second hand exposure: No alcohol intake: never substance use type: denies use current occupational status: retired Travel in the last 8 weeks?: Inside the [place] household members: spouse housing: house caffeine: Yes Review of Systems Constitutional Constitutional: Reports anorexia, Reports body ache(s) and Reports fatigue Eyes Eyes: Denies eye discharge, Denies dry eyes, Denies irritation and Denies itchy eyes ENT Ears, Nose, Mouth, and Throat: Denies epistaxis, Denies facial pain, Denies lip swelling and Denies throat swelling *Cardiovascular Cardiovascular: Reports dyspnea and Reports dyspnea on exertion *Respiratory Respiratory: Reports change in phlegm color, Reports chest congestion, Reports cough, Reports dyspnea, Reports dyspnea on exertion, Reports excessive phlegm production, Reports hemoptysis, Denies pain on inspiration, Denies pain with cough and Denies wheezing *Gastrointestinal Gastrointestinal: Denies abdominal pain, Denies belching and Denies cramping *Musculoskeletal Musculoskeletal: Reports back pain, Reports myalgias and Reports other (No small joint swelling or Pain) Psychiatric Psychiatric: Denies homicidal ideation and Denies suicidal ideation Endocrine Endocrine: Reports fatigue and Denies heat intolerance Hematologic/Lymphatic Hematologic/Lymphatic: Denies easy bleeding and Denies lymphadenopathy Allergic/Immunologic Allergic/Immunologic: Denies itchy eyes, Denies lip swelling, Denies throat swelling and Denies wheezing Pulmonology Exam Inpatient Vital signs and Labs for Last 24 Hours: Temp Pulse Resp BP Pulse Ox O2 Del Method 98.0 F 58 L 16 112/52 L 96 Room Air 07/29/24 11:15 07/29/24 11:15 07/29/24 11:15 07/29/24 11:15 07/29/24 11:15 07/29/24 11:15 Laboratory Results - last 24 hr 07/28/24 16:16: POC Glucose 107 07/28/24 19:30: POC Glucose 99 07/29/24 06:22: POC Glucose 95 07/29/24 06:30: WBC 7.8, RBC 3.43 L, Hgb 10.4 L, Hct 32.2 L, MCV 93.9, MCH 30.3, MCHC 32.3, RDW 16.4, Plt Count 214, MPV 10.1, Neut % (Auto) 72.6, Lymph % (Auto) 18.3, [place] % (Auto) 6.8, Eos % (Auto) 1.0, Baso % (Auto) 0.4, Neut # (Auto) 5.7, Lymph # (Auto) 1.4, [place] # (Auto) 0.5, Eos # (Auto) 0.1, Baso # (Auto) 0.0, Sodium 133 L, Potassium 3.8, Chloride 107, Carbon Dioxide 25, Anion Gap 4.8 L, BUN 7 L, Creatinine 0.80, Estimated Creat Clear 50, Estimated GFR 93, Est GFR ( Amer) 112, Glucose 102 H, Calcium 8.4, Magnesium 2.0 D, Total Bilirubin 0.7, AST 18, ALT 12, Alkaline Phosphatase 113, Total Protein 5.4 L, Albumin 2.8 L, Globulin 2.6, Albumin/Globulin Ratio 1.1 07/29/24 11:29: POC Glucose 96 I & O for Labs for Last 24 Hours: Intake & Output 07/26/24 07/27/24 07/28/24 07/29/24 23:59 23:59 23:59 23:59 Intake Total 843.109 / 843.109 240 / 390 150 / 150 Output Total 50 / 70 985 / 1285 1465 / 1640 875 / 875 Balance -50 / 80 -141.891 / -441.891 -1225 / -1250 -725 / -725 Weight 131 lb 13.383 oz 131 lb 13.383 oz 135 lb 1.6 oz 133 lb 15.951 oz Constitutional: Present mild distress Head: Present normocephalic and atraumatic ENT: Present normal exam, normal oropharynx and mucous membranes moist Neck: Present normal inspection and full ROM Respiratory: Present crackles and able to speak in complete sentences; Absent prolonged expiratory phase or wheezes Cardiac: Present S1/S2, Tachycardia and radial pulses present GI: Present soft and distention; Absent tenderness or guarding Skin: Present intact; Absent cyanosis or jaundice Neuro: Present alert, awake and oriented x 3 Extremities: Absent normal inspection, clubbing or cyanosis Psychiatric: Present normal affect and cooperative Meds Home Medications and Allergies Home Medications ?Medication ?Instructions ?Recorded ?Confirmed ?Type lansoprazole 30 mg capsule,delayed 30 mg PO DAILY 09/27/22 07/27/24 History release levocetirizine 5 mg tablet 5 mg PO DAILY 09/27/22 07/27/24 History trazodone 100 mg tablet 100 mg PO HS 09/27/22 07/27/24 History fluticasone fur. 100 mcg-umeclid 1 inh inhalation DAILY 01/29/23 07/27/24 History 62.5 mcg-vilant 25 mcg inhalat.powder (Trelegy Ellipta) apixaban 5 mg tablet (Eliquis) 5 mg PO BID 03/28/24 07/27/24 History duloxetine 60 mg capsule,delayed 60 mg PO DAILY 03/28/24 07/27/24 History release famotidine 20 mg tablet 20 mg PO DAILY 03/28/24 07/27/24 History fluticasone propionate 50 1 spray intranasal DAILY 03/28/24 07/27/24 History mcg/actuation nasal spray,suspension tamsulosin 0.4 mg capsule 0.4 mg PO HS 03/28/24 07/27/24 History dutasteride 0.5 mg capsule 0.5 mg PO DAILY 04/29/24 07/27/24 History clopidogrel 75 mg tablet 75 mg PO DAILY 30 days #30 tabs 05/21/24 07/27/24 Rx empagliflozin 10 mg tablet 10 mg PO DAILY 30 days #30 tabs 05/21/24 07/27/24 Rx (Jardiance) spironolactone 25 mg tablet 25 mg PO DAILY 30 days #30 tabs 05/21/24 07/27/24 Rx sacubitril 24 mg-valsartan 26 mg 1 tab PO BID #60 tabs 05/27/24 07/27/24 Rx tablet (Entresto) oxybutynin chloride 5 mg tablet 5 mg PO BID PRN bladder spasms #60 06/01/24 07/27/24 Rx tabs atorvastatin 80 mg tablet 80 mg PO HS 06/29/24 07/27/24 History memantine 5 mg tablet 5 mg PO BID 07/03/24 07/27/24 History aspirin 81 mg tablet,delayed 81 mg PO DAILY 07/26/24 07/27/24 History release carvedilol 3.125 mg tablet 3.125 mg PO BID 07/26/24 07/27/24 History cefdinir 300 mg capsule 300 mg PO BID 07/26/24 07/27/24 History doxycycline hyclate 100 mg capsule 100 mg PO BID 07/26/24 07/27/24 History New Prescriptions to Start Prescriptions: Allergies Allergy/AdvReac Type Severity Reaction Status Date / Time No Known Allergies Allergy Verified 07/03/24 10:33 Results Laboratory Findings 07/29/24 06:30 07/29/24 06:30 PT/INR, D-dimer PT 12.1 seconds (10.1-12.5) 07/26/24 20:55 INR 1.10 (0.9-1.1) 07/26/24 20:55 Abnormal lab findings: Abnormal Labs 07/26/24 07/26/24 07/27/24 20:55 22:51 05:56 RBC 3.79 L Hgb 11.8 L Hct 35.5 L MCV MCHC Neut % (Auto) 80.8 H APTT 31.0 H Sodium 133 L Anion Gap BUN 6 L Glucose 134 H POC Glucose 120 H 118 H Calcium Magnesium AST 16 L ALT Total Protein 5.9 L Albumin 3.2 L TSH 0.24 L Urine Blood Ur Leukocyte Esterase 07/27/24 07/28/24 07/28/24 07:20 08:08 08:10 RBC 3.41 L 3.69 L Hgb 10.2 L D 11.3 L Hct 32.4 L 34.7 L MCV 95.0 H MCHC 31.5 L Neut % (Auto) APTT Sodium 131 L 134 L Anion Gap 4.1 L BUN 7 L 6 L Glucose 108 H POC Glucose Calcium 8.3 L Magnesium 2.4 H D AST 16 L ALT 11 L 11 L Total Protein 5.6 L 5.8 L Albumin 2.9 L 3.1 L TSH 0.14 L D Urine Blood 2+ A Ur Leukocyte Esterase 1+ A 07/29/24 06:30 RBC 3.43 L Hgb 10.4 L Hct 32.2 L MCV MCHC Neut % (Auto) APTT Sodium 133 L Anion Gap 4.8 L BUN 7 L Glucose 102 H POC Glucose Calcium Magnesium AST ALT Total Protein 5.4 L Albumin 2.8 L TSH Urine Blood Ur Leukocyte Esterase Assessment and Plan *Assessment and plan (1) Pneumonia: Status: Acute Category: Medical Code(s): J18.9 - Pneumonia, unspecified organism (2) Hemoptysis: Status: Acute Category: Medical Code(s): R04.2 - Hemoptysis Plan Mr. Rodríguez is a 83-year-old male with history of cardiomyopathy reduced EF to 35%, currently wearing LifeVest presented to the ER after he was shocked by his LifeVest. Greater than 30 PPD. Pulmonary was consulted today is concerning for pneumonia and hemoptysis. Chest x-ray from this morning minimal right lower lobe infiltrates appeared new from his presentation chest x-ray. CT chest from June 2024 no acute pulmonary parenchymal abnormalities Coagulation studies PT/INR within normal limits from 07/26/2024. Platelet count 215. Hemoglobin stable. Currently on Plavix and Eliquis. Chest clear to auscultate. Scant hemoptysis dark blood. 1 episode. Plan: Initiate levofloxacin 750mg daily pending sputum culture results Will hold off on performing CT chest at this point of time pending clinical follow-up determine any worsening frequency or amount or having kiran red hemoptysis. Continue Trelegy 100 inhaler along with DuoNebs 4 times daily as needed No need to hold/change his anticoagulation at this point of time # Thank you for involving pulmonary in this patient care. Will continue to follow
--- NOTE | 2024-07-29 13:16 | SW/DCPLANNER ---
Addendum entered by Felisha Corea 07/29/24 14:03: [facility] is able to accept the patient. Zhane ELAM [employer] Analyst Original Note: Spoke with patient about once he is medically stable and ready for discharge if he would be interested in home health services. Patient stated that i get back with him in 2 weeks and he also seemed confused today. I phoned the patient's daughter and she stated that it would be better if we could do home health instead of out patient therapy due to its hard for her to get someone to get him there and she works. I am going to fax patient's information to [facility] and will update once i hear back. Zhane German
--- NOTE | 2024-07-29 14:30 | PC.NURSE ---
Sputum specimen taken to lab at this time
[2024-07-29] MEDS: LIDOCAINE 1% W/EPI 1:100,000 20ML VIAL 20 ML SQ (14:49)
[2024-07-29] MEDS: CEFAZOLIN SODIUM 1 GM in 0.9 % SODIUM CHLORIDE 50 ML IV (14:50)
[2024-07-29] MEDS: CEFAZOLIN 1GM VIAL 1 GM TP (14:51)
--- NOTE | 2024-07-29 14:58 | EXP.CARD.CON ---
History of Present Illness History of Present Illness Consult date: 07/29/24 Chief complaint: Shocked by LifeVest History of present illness: 83-year-old established patient of our office with a history of CAD status post CABG 1997, drug-eluting stent to SVG?RCA and SVG?diagonal in April of this year. Has longstanding persistent atrial fibrillation with rate control on Xarelto and EF of 45%, AAA 4.7 cm, PAD with right AKA, CALEB status post stenting 2016 bilaterally, left internal carotid artery 60%. Patient presented last Monday to [facility] for TURP procedure. Reportedly immediately after anesthesia he developed pulseless VT and was coded. EF reportedly down to 35% there he was admitted for 1 week and sent home with a LifeVest. 2 hours after arriving home from the hospital he received shock from his LifeVest. He presented to the emergency room here, rhythm strips were reviewed and interrogated by hospitalist who determined heart rate greater than 200 and appropriate shock for VT. Patient was started on amiodarone and admitted for further workup and management. He has had several episodes of bradycardia here with heart rate 40s to 50s. Discussion was had with patient about [employer] for secondary prevention with expected pacemaker demand greater than 20% and he is agreeable to proceed. *Of note, patient did have some mild hemoptysis this morning. [facility] Disclaimer: The information contained in this section may have been updated after the patient was seen, as this information can be updated by other users. Medical History Hemoptysis Pneumonia Atypical angina Subdural hemorrhage Swelling of lower leg Dehiscence of operative wound Obesity (BMI 30.0-34.9) Stenosis of carotid artery Left carotid bruit BPH without obstruction/lower urinary tract symptoms BPH (benign prostatic hyperplasia) CALEB (renal artery stenosis) HFrEF (heart failure with reduced ejection fraction) CHF (congestive heart failure) Dyspnea HLD (hyperlipidemia) HTN (hypertension) CAD (coronary artery disease) Abdominal aortic aneurysm CKD (chronic kidney disease) Atrial fibrillation Surgical History H/O fasciotomy Family History Other No significant family history Social History Smoking Status: Current every day smoker tobacco type: cigarettes second hand exposure: No alcohol intake: never substance use type: denies use current occupational status: retired Travel in the last 8 weeks?: Inside the [place] household members: spouse housing: house caffeine: Yes Review of Systems Constitutional Constitutional: Reports fatigue and Reports weakness Eyes Eyes: Denies loss of vision ENT Ears, Nose, Mouth, and Throat: Denies hearing loss and Denies vertigo *Cardiovascular Cardiovascular: Reports chest pain, Reports dyspnea and Denies syncope *Respiratory Respiratory: Denies cough and Reports dyspnea *Gastrointestinal Gastrointestinal: Denies change in stool character, Denies nausea and Denies vomiting *Genitourinary Genitourinary: Denies difficulty urinating *Musculoskeletal Musculoskeletal: Denies muscle weakness Integumentary/Breasts Skin/Breast: Denies changing lesions *Neurologic Neurologic: Denies loss of vision, Denies syncope, Denies vertigo and Reports weakness Endocrine Endocrine: Reports fatigue Exam Data for Last 24 hours Vital signs and Labs for Last 24 Hours: Temp Pulse Resp BP Pulse Ox O2 Del Method 98.1 F 60 16 87/51 L 93 L Room Air 07/29/24 12:00 07/29/24 14:25 07/29/24 12:00 07/29/24 12:00 07/29/24 12:00 07/29/24 13:00 Laboratory Results - last 24 hr 07/28/24 16:16: POC Glucose 107 07/28/24 19:30: POC Glucose 99 07/29/24 06:22: POC Glucose 95 07/29/24 06:30: WBC 7.8, RBC 3.43 L, Hgb 10.4 L, Hct 32.2 L, MCV 93.9, MCH 30.3, MCHC 32.3, RDW 16.4, Plt Count 214, MPV 10.1, Neut % (Auto) 72.6, Lymph % (Auto) 18.3, [place] % (Auto) 6.8, Eos % (Auto) 1.0, Baso % (Auto) 0.4, Neut # (Auto) 5.7, Lymph # (Auto) 1.4, [place] # (Auto) 0.5, Eos # (Auto) 0.1, Baso # (Auto) 0.0, Sodium 133 L, Potassium 3.8, Chloride 107, Carbon Dioxide 25, Anion Gap 4.8 L, BUN 7 L, Creatinine 0.80, Estimated Creat Clear 50, Estimated GFR 93, Est GFR ( Amer) 112, Glucose 102 H, Calcium 8.4, Magnesium 2.0 D, Total Bilirubin 0.7, AST 18, ALT 12, Alkaline Phosphatase 113, Total Protein 5.4 L, Albumin 2.8 L, Globulin 2.6, Albumin/Globulin Ratio 1.1 07/29/24 11:29: POC Glucose 96 I & O for Last 24 hours: Intake & Output 07/26/24 07/27/24 07/28/24 07/29/24 23:59 23:59 23:59 23:59 Intake Total 843.109 / 843.109 240 / 390 150 / 150 Output Total 50 / 70 985 / 1285 1465 / 1640 875 / 875 Balance -50 / 80 -141.891 / -441.891 -1225 / -1250 -725 / -725 Weight 131 lb 13.383 oz 131 lb 13.383 oz 135 lb 1.6 oz 133 lb 15.951 oz Constitutional Constitutional: no acute distress and cooperative Comments: Patient appears frail Bruising noted to right maxillary region-patient reports fall from wheelchair 1 week ago *Routine HEENT Exam Eye: Present PERRL *Routine Respiratory Exam Respiratory: Present CTA bilaterally; Absent accessory muscle use, wheezes or crackles *Routine Cardiovascular Exam Cardiovascular: Present RRR, Normal S1 and Normal S2; Absent murmur, gallop or rubs *Routine Abdominal Exam Abdominal: Present soft; Absent tenderness *Routine Extremities Exam Extremities: Present pulses intact; Absent cyanosis or edema *Routine Skin Exam Skin: Present intact; Absent erythema or wounds *Routine Neurological Exam Neurological: Present alert and oriented X3 Routine Psychiatric Exam Psychiatric: Present cooperative Meds Home Medications and Allergies Home Medications ?Medication ?Instructions ?Recorded ?Confirmed ?Type lansoprazole 30 mg capsule,delayed 30 mg PO DAILY 09/27/22 07/27/24 History release levocetirizine 5 mg tablet 5 mg PO DAILY 09/27/22 07/27/24 History trazodone 100 mg tablet 100 mg PO HS 09/27/22 07/27/24 History fluticasone fur. 100 mcg-umeclid 1 inh inhalation DAILY 01/29/23 07/27/24 History 62.5 mcg-vilant 25 mcg inhalat.powder (Trelegy Ellipta) apixaban 5 mg tablet (Eliquis) 5 mg PO BID 03/28/24 07/27/24 History duloxetine 60 mg capsule,delayed 60 mg PO DAILY 03/28/24 07/27/24 History release famotidine 20 mg tablet 20 mg PO DAILY 03/28/24 07/27/24 History fluticasone propionate 50 1 spray intranasal DAILY 03/28/24 07/27/24 History mcg/actuation nasal spray,suspension tamsulosin 0.4 mg capsule 0.4 mg PO HS 03/28/24 07/27/24 History dutasteride 0.5 mg capsule 0.5 mg PO DAILY 04/29/24 07/27/24 History clopidogrel 75 mg tablet 75 mg PO DAILY 30 days #30 tabs 05/21/24 07/27/24 Rx empagliflozin 10 mg tablet 10 mg PO DAILY 30 days #30 tabs 05/21/24 07/27/24 Rx (Jardiance) spironolactone 25 mg tablet 25 mg PO DAILY 30 days #30 tabs 05/21/24 07/27/24 Rx sacubitril 24 mg-valsartan 26 mg 1 tab PO BID #60 tabs 05/27/24 07/27/24 Rx tablet (Entresto) oxybutynin chloride 5 mg tablet 5 mg PO BID PRN bladder spasms #60 06/01/24 07/27/24 Rx tabs atorvastatin 80 mg tablet 80 mg PO HS 06/29/24 07/27/24 History memantine 5 mg tablet 5 mg PO BID 07/03/24 07/27/24 History aspirin 81 mg tablet,delayed 81 mg PO DAILY 07/26/24 07/27/24 History release carvedilol 3.125 mg tablet 3.125 mg PO BID 07/26/24 07/27/24 History cefdinir 300 mg capsule 300 mg PO BID 07/26/24 07/27/24 History doxycycline hyclate 100 mg capsule 100 mg PO BID 07/26/24 07/27/24 History New Prescriptions to Start Prescriptions: Allergies Allergy/AdvReac Type Severity Reaction Status Date / Time No Known Allergies Allergy Verified 07/03/24 10:33 Assessment and Plan *Assessment and plan (1) Defibrillator discharge: Status: Acute Category: Medical Code(s): Z45.02 - Encounter for adjustment and management of automatic implantable cardiac defibrillator (2) Sustained ventricular tachycardia: Status: Acute Category: Medical Code(s): I47.20 - Ventricular tachycardia, unspecified (3) Hemoptysis: Status: Acute Category: Medical Code(s): R04.2 - Hemoptysis (4) Pneumonia: Status: Acute Category: Medical Code(s): J18.9 - Pneumonia, unspecified organism (5) Heart failure with mildly reduced ejection fraction: Status: Acute Category: Medical Code(s): I50.22 - Chronic systolic (congestive) heart failure (6) Laceration of face: Status: Acute Category: Medical Code(s): S01.81XA - Laceration without foreign body of other part of head, initial encounter (7) Fall: Status: Acute Category: Medical Code(s): W19.XXXA - Unspecified fall, initial encounter (8) CAD (coronary artery disease): Status: Chronic Qualifiers: Coronary Disease-Associated Artery/Lesion type: [place] artery [place] vs. transplanted heart: [place] heart Associated angina: without angina Qualified Code(s): I25.10 - Atherosclerotic heart disease of [place] coronary artery without angina pectoris Category: Medical Code(s): I25.10 - Atherosclerotic heart disease of [place] coronary artery without angina pectoris (9) HFrEF (heart failure with reduced ejection fraction): Status: Acute Category: Medical Code(s): I50.20 - Unspecified systolic (congestive) heart failure (10) Stenosis of carotid artery: Status: Acute Qualifiers: Laterality: bilateral Qualified Code(s): I65.23 - Occlusion and stenosis of bilateral carotid arteries Category: Medical Code(s): I65.29 - Occlusion and stenosis of unspecified carotid artery (11) PAD (peripheral artery disease): Status: Chronic Category: Medical Code(s): I73.9 - Peripheral vascular disease, unspecified Plan Recurrent sustained ventricular tachycardia - Pulseless VT after anesthesia at [facility] 07/22/2024 - LifeVest shock for sustained VT 07/28/2019 - Continue beta-natalie and amiodarone - Patient agreeable to [employer] for secondary prevention. He is a candidate for BiV pacing due to reduced EF and expected pacing greater than 20% as he has already had several episodes of bradycardia here. Hemoptysis - Patient was coded last week, unclear if he had chest compressions or intubation - Chest x-ray here suggest possible right pneumonia, on antibiotics - Continue to monitor closely Multivessel CAD - Status post CABG 1997, stents to vein grafts April 2024 - Resume DAPT, beta-natalie, statin post device implant Longstanding persistent atrial fibrillation - Sinus rhythm now after LifeVest cardioversion for VT - Continue amiodarone and metoprolol - Resume OAC post device implant Hypertension with renal artery stenosis status post renal stenting 2016 - Continue aspirin, statin, Entresto PAD status post right AKA - Continue DAPT, statin L ICA 60% - Continue DAPT, statin AAA, 4.7 cm - BP control, avoid tobacco
--- NOTE | 2024-07-29 16:26 | PC.NURSE ---
PT IS OFF THE FLOOR FOR SURGERY AT THIS TIME.
--- NOTE | 2024-07-29 17:17 | XR_ITS ---
PROCEDURE INFORMATION: Exam: XR Chest Exam date and time: 07/29/2024 5:38 PM Age: 83 years old Clinical indication: Device placement; Cardiac pacemaker lead placement or adjustment; Prior surgery; Surgery date: Post-operative (0-2 days); Surgery type: Placement of pacemaker; Additional info: Confirm pacemaker/aid placement TECHNIQUE: Imaging protocol: Radiologic exam of the chest. Views: 1 view. COMPARISON: CR XR CHEST PORTABLE 07/28/2024 9:08 AM FINDINGS: Tubes, catheters and devices: A left subclavian pacemaker device is present, and its leads are in appropriate position. Lungs: Lung volumes are mildly diminished. There is mild increase in patchy opacities in the lungs bilaterally, greatest in the lung bases. Pleural spaces: No pleural effusions. Negative for pneumothorax. Heart/Mediastinum: Cardiac silhouette and pulmonary vasculature are within range of normal. Diaphragm: There is mild elevation of the left hemidiaphragm. Bones/joints: Sternal suture wires are in place suggesting prior median sternotomy and postoperative changes are present involving the mediastinum. There is no evidence of acute fracture. IMPRESSION: 1. Status post left subclavian pacemaker placement without apparent complications. 2. Mild increase in patchy opacities in the lungs bilaterally, greatest in the lung bases which may reflect atelectasis or low-grade edema.
[2024-07-29] MEDS: IOPAMIDOL-370 (76%);100ML BOTTLE 125 ML IV (17:49)
--- NOTE | 2024-07-29 19:23 | EXP.ACUTE.PN ---
Subjective *Date: 07/29/24 *Time: 21:52 Interval history: Denies any chest pain today. Awaiting placement of pacemaker. Developed some scant hemoptysis today with dark blood. Afebrile. Stable on room air. No nausea or vomiting. Medical Exam Vital signs and Labs for Last 24 Hours: Vital Signs Temp Pulse Pulse Resp BP BP Pulse Ox 07/29/24 19:00 72 18 158/62 H 95 07/29/24 18:46 07/29/24 18:33 70 07/29/24 18:33 74 07/29/24 18:30 69 18 107/57 L 97 07/29/24 18:15 73 16 123/59 L 98 07/29/24 18:00 71 18 127/77 99 07/29/24 17:45 73 18 126/52 L 95 07/29/24 17:30 81 16 130/70 96 07/29/24 17:23 60 19 103/50 L 96 07/29/24 14:25 60 07/29/24 14:25 60 07/29/24 13:00 07/29/24 12:00 60 07/29/24 12:00 98.1 F 58 L 16 87/51 L 93 L 07/29/24 11:15 98.0 F 58 L 16 112/52 L 96 07/29/24 10:44 07/29/24 08:00 70 07/29/24 08:00 07/29/24 08:00 98 F 58 L 16 112/52 L 96 07/29/24 07:54 07/29/24 06:48 61 07/29/24 06:48 60 07/29/24 06:40 07/29/24 05:00 07/29/24 04:00 98.4 F 66 16 125/63 95 07/29/24 04:00 60 07/29/24 03:00 07/29/24 01:00 07/29/24 00:00 60 07/28/24 23:36 97.9 F 75 16 110/54 L 96 07/28/24 23:30 75 18 95 07/28/24 21:00 07/28/24 20:00 84 07/28/24 20:00 99.2 F 82 27 H 114/66 92 L 07/28/24 19:54 86 93 L O2 Del Method 07/29/24 19:00 Room Air 07/29/24 18:46 Room Air 07/29/24 18:33 07/29/24 18:33 07/29/24 18:30 Room Air 07/29/24 18:15 Room Air 07/29/24 18:00 Room Air 07/29/24 17:45 Room Air 07/29/24 17:30 Room Air 07/29/24 17:23 Room Air 07/29/24 14:25 07/29/24 14:25 07/29/24 13:00 Room Air 07/29/24 12:00 07/29/24 12:00 07/29/24 11:15 Room Air 07/29/24 10:44 Room Air 07/29/24 08:00 07/29/24 08:00 Nasal Cannula 07/29/24 08:00 Room Air 07/29/24 07:54 Room Air 07/29/24 06:48 07/29/24 06:48 07/29/24 06:40 Room Air 07/29/24 05:00 Room Air 07/29/24 04:00 Room Air 07/29/24 04:00 07/29/24 03:00 Room Air 07/29/24 01:00 Room Air 07/29/24 00:00 07/28/24 23:36 Room Air 07/28/24 23:30 Room Air 07/28/24 21:00 Room Air 07/28/24 20:00 07/28/24 20:00 Room Air 07/28/24 19:54 Room Air Intake and Output 07/29/24 07/29/24 07/29/24 07:59 15:59 23:59 Intake Total 150 / 150 Output Total 875 / 875 Balance -725 / -725 Intake: Intake, Oral Amount 100 / 100 Infusion Intake 50 / 50 Ceftriaxone 1 gm 1 gm In 0.9 % 50 / 50 Sodium Chloride 50 ml @ 100 mls /hr IV Q24H [facility] Rx#:[id number] Output: Output, Urine Amount 875 / 875 Other: Number of Unmeasured Voids 0 Weight 60.781 kg 60.78 kg Patient Weight 07/29/24 23:59 Weight 60.78 kg Laboratory Results - last 24 hr 07/28/24 19:30: POC Glucose 99 07/29/24 06:22: POC Glucose 95 06/09/25 06:30: WBC 7.8, RBC 3.43 L, Hgb 10.4 L, Hct 32.2 L, MCV 93.9, MCH 30.3, MCHC 32.3, RDW 16.4, Plt Count 214, MPV 10.1, Neut % (Auto) 72.6, Lymph % (Auto) 18.3, [place] % (Auto) 6.8, Eos % (Auto) 1.0, Baso % (Auto) 0.4, Neut # (Auto) 5.7, Lymph # (Auto) 1.4, [place] # (Auto) 0.5, Eos # (Auto) 0.1, Baso # (Auto) 0.0, Sodium 133 L, Potassium 3.8, Chloride 107, Carbon Dioxide 25, Anion Gap 4.8 L, BUN 7 L, Creatinine 0.80, Estimated Creat Clear 50, Estimated GFR 93, Est GFR ( Amer) 112, Glucose 102 H, Calcium 8.4, Magnesium 2.0 D, Total Bilirubin 0.7, AST 18, ALT 12, Alkaline Phosphatase 113, Total Protein 5.4 L, Albumin 2.8 L, Globulin 2.6, Albumin/Globulin Ratio 1.1 07/29/24 11:29: POC Glucose 96 I & O for Labs for Last 24 Hours: Intake & Output 07/26/24 07/27/24 07/28/24 07/29/24 23:59 23:59 23:59 23:59 Intake Total 843.109 / 843.109 240 / 390 150 / 150 Output Total 50 / 70 985 / 1285 1465 / 1640 875 / 875 Balance -50 / 80 -141.891 / -441.891 -1225 / -1250 -725 / -725 Weight 59.8 kg 59.8 kg 61.28 kg 60.78 kg Microbiology Reports for the Last 24 Hours: Microbiology 07/29/24 14:20 Sputum - Expectorated Sputum Gram Stain - Final Constitutional: Present mild distress, thin, chronically ill appearing and cooperative Head: Present normocephalic ENT: Present normal exam Comment:: Bruising around right eye Respiratory: Present prolonged expiratory phase, rhonchi, crackles (Right lower lung field) and normal respiratory effort; Absent wheezes Cardiac: Present Reg Rate and Rhythm GI: Present soft and normal bowel sounds; Absent distention or tenderness Extremities: Present normal inspection and full ROM; Absent edema Skin: Present intact; Absent erythema Neuro: Present Grossly Intact, alert, awake, oriented x 3 and moves all extremities Assessment and Plan *Assessment and plan (1) CAD (coronary artery disease): Status: Chronic Qualifiers: Associated angina: without angina Coronary Disease-Associated Artery/Lesion type: mo[place]gan artery [place] vs. transplanted heart: mohegan heart Qualified Code(s): I25.10 - Atherosclerotic heart disease of mohegan coronary artery without angina pectoris Category: Medical Code(s): I25.10 - Atherosclerotic heart disease of mohegan coronary artery without angina pectoris (2) Heart failure with mildly reduced ejection fraction: Status: Acute Category: Medical Code(s): I50.22 - Chronic systolic (congestive) heart failure (3) HTN (hypertension): Status: Chronic Qualifiers: Hypertension type: essential hypertension Qualified Code(s): I10 - Essential (primary) hypertension Category: Medical Code(s): I10 - Essential (primary) hypertension (4) Pneumonia: Status: Acute Category: Medical Code(s): J18.9 - Pneumonia, unspecified organism (5) HLD (hyperlipidemia): Status: Chronic Qualifiers: Hyperlipidemia type: mixed hyperlipidemia Qualified Code(s): E78.2 - Mixed hyperlipidemia Category: Medical Code(s): E78.5 - Hyperlipidemia, unspecified (6) Hemoptysis: Status: Acute Category: Medical Code(s): R04.2 - Hemoptysis (7) HFrEF (heart failure with reduced ejection fraction): Status: Acute Category: Medical Code(s): I50.20 - Unspecified systolic (congestive) heart failure (8) BPH without obstruction/lower urinary tract symptoms: Status: Acute Category: Medical Code(s): N40.0 - Benign prostatic hyperplasia without lower urinary tract symptoms (9) Stenosis of carotid artery: Status: Acute Qualifiers: Laterality: bilateral Qualified Code(s): I65.23 - Occlusion and stenosis of bilateral carotid arteries Category: Medical Code(s): I65.29 - Occlusion and stenosis of unspecified carotid artery (10) PAD (peripheral artery disease): Status: Chronic Category: Medical Code(s): I73.9 - Peripheral vascular disease, unspecified (11) Laceration of face: Status: Acute Category: Medical Code(s): S01.81XA - Laceration without foreign body of other part of head, initial encounter (12) Fall: Status: Acute Category: Medical Code(s): W19.XXXA - Unspecified fall, initial encounter Plan Ti Rodríguez is a 83-year-old man with ischemic cardiomyopathy, CABG, recent PCI x 2 SVG to RCA and D1 presenting after a LifeVest shock. Device interrogated, interpreted as an appropriate shock due to ventricular tachycardia. 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 Continues to require pressure management. Anticipate discharge in the next day or 2. Problems addressed as follows: #V. tach #LifeVest discharge ?Patient had pulseless V. tach after anesthesia [facility] on 07/22. LifeVest shock for sustained V. tach on 07/27. - Responded to amiodarone drip. Continue p.o. amiodarone and p.o. beta-natalie - Discussed case with cardiology, taking for [employer] SCI[employer]ER[employer]D today. He is a candidate for BiV pacing due to reduced EF and expected pacing greater than 20% as he has already had several episodes of bradycardia here. Multivessel CAD Persistent A-fib PAD status post right AKA - Status post CABG 1997, stents to vein grafts April 2024 -Continue Plavix 75 mg daily, continue DOAC. Discontinue aspirin due to hemoptysis. Hypertension with renal artery stenosis status post renal stenting 2016 - Continue statin, Entresto, Jardiance, spironolactone, Lasix #Weakness #UTI - Replaced chronic kidd catheter. ?Discontinue ceftriaxone, transition to Levaquin as below Pneumonia Hemoptysis - Pulmonology consulted for hemoptysis today. Recommend transitioning to Levaquin pending sputum cultures to treat for right lower lobe pneumonia. Will hold on chest CT pending clinical follow-up. Continue Trelegy 100 inhaler along with DuoNebs every 6 hours as needed. -White count normal at 7.8. Hemoglobin 10.4, stable. Repeat CBC, CMP, magnesium ordered for the morning Full code Cardiac diet
[2024-07-29] MEDS: METOPROLOL TARTRATE 50MG TABLET 50 MG PO (20:38)
[2024-07-29] MEDS: TRAZODONE 50MG TABLET 100 MG PO (20:40)
[2024-07-29] MEDS: TAMSULOSIN 0.4MG CAPSULE 0.4 MG PO (20:40)
[2024-07-29] MEDS: ATORVASTATIN 40MG TABLET 80 MG PO (20:40)
[2024-07-29] MEDS: APIXABAN 5MG TABLET 5 MG PO (20:40)
[2024-07-29] MEDS: LEVOFLOXACIN/D5W 750 MG/150 ML 750 MG/150 ML PIGGYBACK 100 MG IV (20:40)
[2024-07-29] MEDS: FINASTERIDE 5MG TABLET 5 MG PO (20:40)
--- NOTE | 2024-07-29 21:33 | CA_ITS ---
APPROVED REPORT EXAM: Limited 2D Echocardiogram Dry Cleaning Machine Operator: Blanche Villagomez CRT Ht: 5 ft 0 in Wt: 130lbs BSA: 1.55 BP: 130/90 mmHg Indications: lifevest discharge 2D Dimensions EF AP4 32.50 % GL Strain -5.4 % M-Mode Dimensions RVDd 2.18 cm (0.9-2.6) LA Diam 5.09 cm (1.9-4.0) LVDd 5.53 cm (3.5-5.7) LVDs 4.43 cm (3.5-5.7) IVSd 1.48 cm (0.6-1.1) PWd 1.07 cm (0.6-1.1) EF (Teich) 40.30% FS 19.90% EDV (Teich) 149.30 mL ESV (Teich) 89.10 mL Other Information Study Quality: Fair Conclusion This is a limited TTE to evaluate for LV systolic function. Limited windows are obtained. The left ventricle is normal in size. There is increased LV wall thickness. There is mild to moderate global hypokinesis present. There is severe hypokinesis of the inferior and septal LV rangel. LVEF is 40%. Electronically signed by : Polly Roberts MD 07/29/2024 10:08:02
[2024-07-30] VITALS: BP 140/73; PULSE 80; RESP 15; TEMP 37; O2SAT 97
[2024-07-30 04:00] VITALS: BP 106/59; PULSE 71; PULSE 80; RESP 19; TEMP 36.8; O2SAT 96; BMI 26.3
--- NOTE | 2024-07-30 05:41 | PC.NURSE ---
Pt is alert and oriented and has confusion at times. Pt lung sounds remain diminished, and productive cough persists. Pt has denied pain and denied pain meds when asked. this nurse changed dressing to surgical incision site, due to moderate bleeding. this nurse also found a small skin tear on pt left forearm, Pt denies knowledge of how it happened this nurse dressed site with non adherent and gauze.
[2024-07-30] MEDS: IPRATROPIUM/ALBUTEROL 3 ML NEB IH (06:17)
[2024-07-30 06:18] VITALS: PULSE 70; PULSE 74
[2024-07-30] MEDS: FLUTICASONE/UMECLIDIN/VILANTER 100/62.5/25MCG INHALER 1 PUFF IH (06:18)
[2024-07-30 06:52] LABS: Basophils % 0.2 % (0.1-2.0); Eosinophils # 0.1 Kmm3 (0.0-0.4); Eosinophils % 1.2 % (0.1-12.0); Hematocrit 33.6 % (42.0-52.0); Immature Granulocytes # 0.09 10^3uL; Immature Granulocytes % 0.9 %; Lymphocytes # 1.1 K/mm3 (0.7-4.5); Lymphocytes % 10.9 % (10-50); Mean Corpuscular HGB Conc 32.7 g/dL (31.8-35.4); Mean Corpuscular Hemoglobin 30.9 pg (27.0-31.2); Mean Corpuscular Volume 94.4 fl (80-94); Mean Platelet Volume 10.4 fl (7.4-10.4); Monocytes # 0.6 K/mm3 (0.1-1.0); Monocytes % 5.8 % (1.7-9.3); Neutrophils # 8.5 K/mm3 (1.8-7.8); Nucleated Red Blood Cells # 0 10^3/uL; Nucleated Red Blood Cells % 0 %; Platelet Count 235 K/mm3 (142-424); Red Blood Count 3.56 M/mm3 (4.60-6.20); Red Cell Distribution Width 16.3 % (11.5-17.5); Red Cell Distribution Width-SD 56.9 fL; White Blood Count 10.5 K/mm3 (4.8-10.8)
[2024-07-30 07:12] LABS: Albumin Level 2.8 g/dl (3.5-5.0); Chloride 107 mmol/L (98-107); Potassium 4.1 mmoL/L (3.5-5.1); Sodium 133 mmol/L (136-145)
[2024-07-30 07:15] LABS: Alanine Aminotransferase 10 U/L (12-78); Albumin/Globulin Ratio 1.1 (1.1-1.8); Alkaline Phosphatase 106 U/L (38-126); Anion Gap 8.1 mEq/L (5-15); Aspartate Amino Transferase 17 U/L (17-59); Bilirubin,Total 0.7 mg/dl (0.2-1.3); Blood Urea Nitrogen 8 mg/dl (9-20); Calcium 8.3 mg/dl (8.4-10.2); Carbon Dioxide 22 mmol/L (22.0-30.0); Creatinine Clearance Estimated 50 mL/min (50-200); Estimated Glomerular Filt Rate 93 ml/min (>60); GFR (African American) 112 ML/MIN (>60); Globulin 2.6 g/dL (1.3-3.2); Glucose 82 mg/dl (74-100); Total Protein,Serum 5.4 g/dl (6.3-8.2)
[2024-07-30 07:16] LABS: Magnesium 1.8 mg/dl (1.6-2.3)
[2024-07-30 08:00] VITALS: BP 82/44; PULSE 72; PULSE 73; RESP 18; TEMP 36.3; O2SAT 91
[2024-07-30] MEDS: SPIRONOLACTONE 25MG TABLET 25 MG PO (09:32)
[2024-07-30] MEDS: EMPAGLIFLOZIN 10MG TABLET 10 MG PO (09:32)
[2024-07-30] MEDS: CLOPIDOGREL 75MG TAB 75 MG PO (09:33)
[2024-07-30] MEDS: MEMANTINE 10MG TABLET 5 MG PO (09:33)
[2024-07-30] MEDS: OXYBUTYNIN 5MG TAB 5 MG PO (09:33)
[2024-07-30] MEDS: APIXABAN 5MG TABLET 5 MG PO (09:33)
[2024-07-30] MEDS: DULOXETINE 30MG CAPSULE.DR 60 MG PO (09:33)
[2024-07-30] MEDS: AMIODARONE 200MG TABLET 400 MG PO (09:34)
[2024-07-30] MEDS: METOPROLOL TARTRATE 50MG TABLET 50 MG PO (09:37)
--- NOTE | 2024-07-30 10:14 | P.PN_ITS ---
Subjective *Date: 07/30/24 *Time: 11:31 Interval history: No acute respiratory events overnight. Patient denies any new respiratory complaint. Pulmonology Exam Inpatient Vital signs and Labs for Last 24 Hours: Temp Pulse Resp BP Pulse Ox O2 Del Method 97.4 F L 73 18 82/44 L 91 L Room Air 07/30/24 08:00 07/30/24 08:00 07/30/24 08:00 07/30/24 08:00 07/30/24 08:00 07/30/24 09:00 Laboratory Results - last 24 hr 07/29/24 11:29: POC Glucose 96 07/30/24 06:25: WBC 10.5 D, RBC 3.56 L, Hgb 11.0 L, Hct 33.6 L, MCV 94.4 H, MCH 30.9, MCHC 32.7, RDW 16.3, Plt Count 235, MPV 10.4, Neut % (Auto) 81.0 H, Lymph % (Auto) 10.9, [place] % (Auto) 5.8, Eos % (Auto) 1.2, Baso % (Auto) 0.2, Neut # (Auto) 8.5 H, Lymph # (Auto) 1.1, [place] # (Auto) 0.6, Eos # (Auto) 0.1, Baso # (Auto) 0.0, Sodium 133 L, Potassium 4.1, Chloride 107, Carbon Dioxide 22, Anion Gap 8.1, BUN 8 L, Creatinine 0.80, Estimated Creat Clear 50, Estimated GFR 93, Est GFR ( Amer) 112, Glucose 82, Calcium 8.3 L, Magnesium 1.8, Total Bilirubin 0.7, AST 17, ALT 10 L, Alkaline Phosphatase 106, Total Protein 5.4 L, Albumin 2.8 L, Globulin 2.6, Albumin/Globulin Ratio 1.1 Temp Pulse Resp BP Pulse Ox O2 Del Method 98.0 F 58 L 16 112/52 L 96 Room Air 07/29/24 11:15 07/29/24 11:15 07/29/24 11:15 07/29/24 11:15 07/29/24 11:15 07/29/24 11:15 Laboratory Results - last 24 hr 07/28/24 16:16: POC Glucose 107 07/28/24 19:30: POC Glucose 99 07/29/24 06:22: POC Glucose 95 07/29/24 06:30: WBC 7.8, RBC 3.43 L, Hgb 10.4 L, Hct 32.2 L, MCV 93.9, MCH 30.3, MCHC 32.3, RDW 16.4, Plt Count 214, MPV 10.1, Neut % (Auto) 72.6, Lymph % (Auto) 18.3, [place] % (Auto) 6.8, Eos % (Auto) 1.0, Baso % (Auto) 0.4, Neut # (Auto) 5.7, Lymph # (Auto) 1.4, [place] # (Auto) 0.5, Eos # (Auto) 0.1, Baso # (Auto) 0.0, Sodium 133 L, Potassium 3.8, Chloride 107, Carbon Dioxide 25, Anion Gap 4.8 L, BUN 7 L, Creatinine 0.80, Estimated Creat Clear 50, Estimated GFR 93, Est GFR ( Amer) 112, Glucose 102 H, Calcium 8.4, Magnesium 2.0 D, Total Bilirubin 0.7, AST 18, ALT 12, Alkaline Phosphatase 113, Total Protein 5.4 L, Albumin 2.8 L, Globulin 2.6, Albumin/Globulin Ratio 1.1 07/29/24 11:29: POC Glucose 96 I & O for Labs for Last 24 Hours: Intake & Output 07/27/24 07/28/24 07/29/24 07/30/24 23:59 23:59 23:59 23:59 Intake Total 843.109 / 843.109 240 / 390 150 / 540 660 / 660 Output Total 985 / 1285 1465 / 1640 875 / 1075 1400 / 1400 Balance -141.891 / -441.891 -1225 / -1250 -725 / -535 -740 / -740 Weight 131 lb 13.383 oz 135 lb 1.6 oz 133 lb 15.951 oz 133 lb 15.951 oz Intake & Output 07/26/24 07/27/24 07/28/24 07/29/24 23:59 23:59 23:59 23:59 Intake Total 843.109 / 843.109 240 / 390 150 / 150 Output Total 50 / 70 985 / 1285 1465 / 1640 875 / 875 Balance -50 / 80 -141.891 / -441.891 -1225 / -1250 -725 / -725 Weight 131 lb 13.383 oz 131 lb 13.383 oz 135 lb 1.6 oz 133 lb 15.951 oz Microbiology Reports for the Last 24 Hours: Microbiology 07/28/24 08:08 Urine,Clean Catch Urine Culture - Final 07/29/24 14:20 Sputum - Expectorated Sputum Gram Stain - Final Constitutional: Present mild distress Head: Present normocephalic and atraumatic ENT: Present normal exam, normal oropharynx and mucous membranes moist Neck: Present normal inspection and full ROM Respiratory: Present able to speak in complete sentences; Absent prolonged expiratory phase, respiratory distress or wheezes Cardiac: Present S1/S2, Tachycardia and radial pulses present GI: Present soft and distention; Absent tenderness or guarding Skin: Present intact; Absent cyanosis or jaundice Neuro: Present alert, awake and oriented x 3 Extremities: Absent normal inspection, clubbing or cyanosis Psychiatric: Present normal affect and cooperative Assessment and Plan *Assessment and plan (1) Pneumonia: Status: Acute Category: Medical Code(s): J18.9 - Pneumonia, unspecified organism (2) Hemoptysis: Status: Acute Category: Medical Code(s): R04.2 - Hemoptysis Plan Mr. Rodríguez is a 83-year-old male with history of cardiomyopathy reduced EF to 35%, currently wearing LifeVest presented to the ER after he was shocked by his LifeVest. Greater than 30 PPD. Pulmonary was consulted today is concerning for pneumonia and hemoptysis. Chest x-ray from this morning minimal right lower lobe infiltrates appeared new from his presentation chest x-ray. CT chest from June 2024 no acute pulmonary parenchymal abnormalities Coagulation studies PT/INR within normal limits from 07/26/2024. Platelet count 215. Hemoglobin stable. Currently on Plavix and Eliquis. On initial examination, chest clear to auscultate. Scant hemoptysis dark blood. 1 episode. Interval update: No acute respiratory events overnight. Continue to remain on room air. Hemoglobin stable. Continue to receive levofloxacin. Sputum prelim few gram- negative rods, final culture pending. Will follow. Admits only 1 episode of scant hemoptysis with dark red blood, improved from yesterday. No further episodes. Slight worsening leukocytosis. Plan: CXR AM Continue levofloxacin 750mg daily x 5 days pending final sputum culture results Will hold off on performing CT chest at this point of time pending clinical follow-up determine any worsening frequency or amount or having kiran red hemoptysis. Continue Trelegy 100 inhaler along with DuoNebs 4 times daily as needed No need to hold/change his anticoagulation at this point of time. On Plavix and Eliquis # Thank you for involving pulmonary in this patient care. Will continue to follow
[2024-07-30 12:00] VITALS: BP 115/59; PULSE 70; PULSE 73; RESP 19; TEMP 36.3; O2SAT 95
--- NOTE | 2024-07-30 13:10 | EXP.DC.SUM ---
General Admission date:: 07/26/24 Discharge date: 07/30/24 HPI HPI HPI: 83-year-old man ischemic cardiomyopathy currently wearing a LifeVest comes to the ER following shock. States he was sitting at dinner when he felt a sudden massive shock coming from his device. He did not have any prodromal symptoms prior to the delivery of the shock. Denies any chest pain, shortness of breath, lightheadedness or dizziness. Denies palpitations. Only complaint right now is paresthesias going down his leg. EKG in ER demonstrates A-fib RVR with isolated PVCs versus Ally's Recently had a urology TURP. Reportedly had pulseless VT while on the table which subsequently resulted in him getting his LifeVest on discharge. He had his LifeVest for about a day before becoming shocked. Called LifeVest rep, documents were sent. Heart rates greater than 200, consistent with VT Left heart cath Recently underwent a coronary disease at that time. Noted to have ejection fraction 35% prior to discharge and was given a LifeVest in addition to medical therapy for heart failure. It was this LifeVest that resulted in his shock. History independently obtained. Diagnostics interpreted independently. Prior records reviewed. Discussed case with ER physician Hospital Course Hospital Course Hospital Course: Ti Rodríguez is a 83-year-old man with ischemic cardiomyopathy, CABG, recent PCI x 2 SVG to RCA and D1 presenting after a LifeVest shock. Device interrogated, interpreted as an appropriate shock due to ventricular tachycardia. Taken for HEMATOLOGIST ONCOLOGIST-D on 07/29. Tolerated procedure well. Remained stable overnight. Hemoglobin stable even with small hematoma and pacer pocket. Therapy evaluating patient. Stable discharge home with support. Problems addressed as follows: #V. tach #LifeVest discharge ?Patient had pulseless V. tach after anesthesia [facility] on 07/22. LifeVest shock for sustained V. tach on 07/27. Responded to amiodarone drip. Continue p.o. amiodarone and p.o. beta-natalie. Discussed case with cardiology, taken for HEMATOLOGIST ONCOLOGIST-D 07/29. Tolerated well. Small hematoma at pacer pocket. Minimal bleeding. Bleeding expected on antiplatelet and anticoagulation therapy. No further episodes of V. tach. Overall stable. Close follow-up with cardiology as an outpatient. Multivessel CAD Persistent A-fib PAD status post right AKA - Status post CABG 1997, stents to vein grafts April 2024. Continue Plavix 75 mg daily, continue DOAC. Discontinue aspirin due to hemoptysis. Hypertension with renal artery stenosis status post renal stenting 2016 - Continue statin, Entresto, Jardiance, spironolactone, Lasix #Weakness #UTI - Replaced chronic kidd catheter on admission. Discontinued ceftriaxone, transitioned to Levaquin to complete course more for pneumonia than UTI. Urine culture remain negative. Follow-up with urology as an outpatient for previously scheduled appointments Pneumonia Hemoptysis - Pulmonology consulted for hemoptysis during admission. Patient was transitioned to levofloxacin to complete antibiotic course of 7 days. Continue at discharge. Hemoptysis improved. Continue Trelegy 100 inhaler along with DuoNebs every 6 hours as needed. Sputum culture pending at discharge, showing few gram-negative rods. White count improved, stable at 10.5 on day of discharge. Stable on room air. Total time spent on discharge 38 minutes in counseling, documentation, chart review, and direct care with patient. Exam Data for Last 24 hours Vital signs and Labs for Last 24 Hours: Temp Pulse Resp BP Pulse Ox O2 Del Method 97.4 F L 73 18 82/44 L 91 L Room Air 07/30/24 08:00 07/30/24 08:00 07/30/24 08:00 07/30/24 08:00 07/30/24 08:00 07/30/24 12:53 Laboratory Results - last 24 hr 07/30/24 06:25: WBC 10.5 D, RBC 3.56 L, Hgb 11.0 L, Hct 33.6 L, MCV 94.4 H, MCH 30.9, MCHC 32.7, RDW 16.3, Plt Count 235, MPV 10.4, Neut % (Auto) 81.0 H, Lymph % (Auto) 10.9, [place] % (Auto) 5.8, Eos % (Auto) 1.2, Baso % (Auto) 0.2, Neut # (Auto) 8.5 H, Lymph # (Auto) 1.1, [place] # (Auto) 0.6, Eos # (Auto) 0.1, Baso # (Auto) 0.0, Sodium 133 L, Potassium 4.1, Chloride 107, Carbon Dioxide 22, Anion Gap 8.1, BUN 8 L, Creatinine 0.80, Estimated Creat Clear 50, Estimated GFR 93, Est GFR ( Amer) 112, Glucose 82, Calcium 8.3 L, Magnesium 1.8, Total Bilirubin 0.7, AST 17, ALT 10 L, Alkaline Phosphatase 106, Total Protein 5.4 L, Albumin 2.8 L, Globulin 2.6, Albumin/Globulin Ratio 1.1 I & O for Last 24 hours: Intake & Output 07/27/24 07/28/24 07/29/24 07/30/24 23:59 23:59 23:59 23:59 Intake Total 843.109 / 843.109 240 / 390 150 / 540 660 / 660 Output Total 985 / 1285 1465 / 1640 875 / 1075 1400 / 1400 Balance -141.891 / -441.891 -1225 / -1250 -725 / -535 -740 / -740 Weight 59.8 kg 61.28 kg 60.78 kg 60.78 kg Microbiology Reports for the Last 24 Hours: Microbiology 07/28/24 08:08 Urine,Clean Catch Urine Culture - Final 07/29/24 14:20 Sputum - Expectorated Sputum Gram Stain - Final Constitutional Constitutional: no acute distress, thin, chronically ill appearing and cooperative *Routine HEENT Exam Head: Present normocephalic Eye: Present EOMI and PERRL ENT: Present mucous membranes moist Comments: Bruising around right eye *Routine Neck Exam Neck: Present supple; Absent lymphadenopathy Routine Chest/Breast/Axilla Exam Chest wall: Present pacemaker (Left upper chest, pocket fresh. Small hematoma) *Routine Respiratory Exam Respiratory: Present prolonged expiratory phase and rhonchi; Absent accessory muscle use, wheezes or crackles *Routine Cardiovascular Exam Cardiovascular: Present RRR *Routine Abdominal Exam Abdominal: Present soft and normoactive bowel sounds; Absent tenderness *Routine Rectal Exam Patient deferred: visual exam *Routine Exam Patient deferred: penile exam (Kidd catheter in place) *Routine Extremities Exam Extremities: Absent cyanosis, clubbing or edema Comments: Right AKA *Routine Skin Exam Skin: Present intact and warm; Absent rash *Routine Neurological Exam Neurological: Present alert, oriented X3 and moving all extremities; Absent altered mental status Results Data Completed and Pending Labs on day of discharge: Labs from last 24 hours 07/30/24 06:25 WBC 10.5 D RBC 3.56 L Hgb 11.0 L Hct 33.6 L MCV 94.4 H MCH 30.9 MCHC 32.7 RDW 16.3 Plt Count 235 MPV 10.4 Neut % (Auto) 81.0 H Lymph % (Auto) 10.9 [place] % (Auto) 5.8 Eos % (Auto) 1.2 Baso % (Auto) 0.2 Neut # (Auto) 8.5 H Lymph # (Auto) 1.1 [place] # (Auto) 0.6 Eos # (Auto) 0.1 Baso # (Auto) 0.0 Sodium 133 L Potassium 4.1 Chloride 107 Carbon Dioxide 22 Anion Gap 8.1 BUN 8 L Creatinine 0.80 Estimated Creat Clear 50 Estimated GFR 93 Est GFR ( Amer) 112 Glucose 82 Calcium 8.3 L Magnesium 1.8 Total Bilirubin 0.7 AST 17 ALT 10 L Alkaline Phosphatase 106 Total Protein 5.4 L Albumin 2.8 L Globulin 2.6 Albumin/Globulin Ratio 1.1 DS: Diagnosis Discharge Diagnosis (1) Pneumonia: Status: Acute Code(s): J18.9 - Pneumonia, unspecified organism (2) Hemoptysis: Status: Acute Code(s): R04.2 - Hemoptysis (3) Sustained ventricular tachycardia: Status: Acute Code(s): I47.20 - Ventricular tachycardia, unspecified (4) Heart failure with mildly reduced ejection fraction: Status: Acute Code(s): I50.22 - Chronic systolic (congestive) heart failure (5) Defibrillator discharge: Status: Acute Code(s): Z45.02 - Encounter for adjustment and management of automatic implantable cardiac defibrillator (6) Bladder outlet obstruction: Status: Acute Code(s): N32.0 - Bladder-neck obstruction (7) CAD (coronary artery disease): Status: Chronic Code(s): I25.10 - Atherosclerotic heart disease of [place] coronary artery without angina pectoris Qualifiers: Coronary Disease-Associated Artery/Lesion type: [place] artery [place] vs. transplanted heart: [place] heart Associated angina: without angina Qualified Code(s): I25.10 - Atherosclerotic heart disease of [place] coronary artery without angina pectoris (8) HTN (hypertension): Status: Chronic Code(s): I10 - Essential (primary) hypertension Qualifiers: Hypertension type: essential hypertension Qualified Code(s): I10 - Essential (primary) hypertension (9) HLD (hyperlipidemia): Status: Chronic Code(s): E78.5 - Hyperlipidemia, unspecified Qualifiers: Hyperlipidemia type: mixed hyperlipidemia Qualified Code(s): E78.2 - Mixed hyperlipidemia Meds Home Medications and Allergies Home Medications ?Medication ?Instructions ?Recorded ?Confirmed ?Type lansoprazole 30 mg capsule,delayed 30 mg PO DAILY 09/27/22 07/27/24 History release levocetirizine 5 mg tablet 5 mg PO DAILY 09/27/22 07/27/24 History trazodone 100 mg tablet 100 mg PO HS 09/27/22 07/27/24 History fluticasone fur. 100 mcg-umeclid 1 inh inhalation DAILY 01/29/23 07/27/24 History 62.5 mcg-vilant 25 mcg inhalat.powder (Trelegy Ellipta) apixaban 5 mg tablet (Eliquis) 5 mg PO BID 03/28/24 07/27/24 History duloxetine 60 mg capsule,delayed 60 mg PO DAILY 03/28/24 07/27/24 History release famotidine 20 mg tablet 20 mg PO DAILY 03/28/24 07/27/24 History fluticasone propionate 50 1 spray intranasal DAILY 03/28/24 07/27/24 History mcg/actuation nasal spray,suspension tamsulosin 0.4 mg capsule 0.4 mg PO HS 03/28/24 07/27/24 History dutasteride 0.5 mg capsule 0.5 mg PO DAILY 04/29/24 07/27/24 History clopidogrel 75 mg tablet 75 mg PO DAILY 30 days #30 tabs 05/21/24 07/27/24 Rx empagliflozin 10 mg tablet 10 mg PO DAILY 30 days #30 tabs 05/21/24 07/27/24 Rx (Jardiance) spironolactone 25 mg tablet 25 mg PO DAILY 30 days #30 tabs 05/21/24 07/27/24 Rx sacubitril 24 mg-valsartan 26 mg 1 tab PO BID #60 tabs 05/27/24 07/27/24 Rx tablet (Entresto) Held on 07/30/24. Instructions: hold until follow-up with cariology oxybutynin chloride 5 mg tablet 5 mg PO BID PRN bladder spasms #60 06/01/24 07/27/24 Rx tabs atorvastatin 80 mg tablet 80 mg PO HS 06/29/24 07/27/24 History memantine 5 mg tablet 5 mg PO BID 07/03/24 07/27/24 History amiodarone 200 mg tablet 400 mg (2 x 200 mg) PO BID 30 days 07/30/24 Rx #120 tabs hydrocodone 5 mg-acetaminophen 325 1 tab PO Q6HP PRN Mild To Moderate 07/30/24 Rx mg tablet Pain (1-6) 3 days #11 tabs levofloxacin 750 mg tablet 750 mg PO DAILY #5 tabs 07/30/24 Rx metoprolol tartrate 50 mg tablet 50 mg PO BID 30 days #60 tabs 07/30/24 Rx New Prescriptions to Start Prescriptions: amiodarone Jaxon,Sven hydrocodone-acetaminophen Jaxon,Sven levofloxacin Jaxon,Sven metoprolol tartrate Jaxon,Sven Allergies Allergy/AdvReac Type Severity Reaction Status Date / Time No Known Allergies Allergy Verified 07/03/24 10:33 Discharge Plan Disposition Patient Disposition: Home Health Service Condition: Fair Discharge Order Discharge Orders: Discharge Order (Routine); Ordered 07/30/24 Ordered By: Sven Coates Follow up Plan Follow up with: Stefania Pagan APRN [Primary Care Provider, Medical] - 08/13/24 11:45 am Elizabeth Andino MD [Physician, Pulmonology] - 09/27/24 1:00 pm Izaiah Roberts MD [Staff Physician, Cardiology] - 08/20/24 2:45 pm Prescriptions/Medication Reconciliation: New amiodarone 200 mg Tablet 400 mg PO BID 30 Days Qty: 120 0RF hydrocodone-acetaminophen 5-325 mg Tablet 1 tab PO Q6HP PRN (Reason: Mild To Moderate Pain (1-6)) 3 Days Qty: 11 0RF levofloxacin 750 mg tablet 750 mg PO DAILY Qty: 5 0RF Rx Instructions: dose due this evening 07/30/24 metoprolol tartrate 50 mg Tablet 50 mg PO BID 30 Days Qty: 60 0RF Continued memantine 5 mg tablet 5 mg PO BID trazodone 100 mg tablet 100 mg PO HS lansoprazole 30 mg capsule,delayed release(DR/EC) 30 mg PO DAILY levocetirizine 5 mg tablet 5 mg PO DAILY Trelegy Ellipta 100-62.5-25 mcg Blister With Device 1 inh INHALATION DAILY famotidine 20 mg tablet 20 mg PO DAILY duloxetine 60 mg capsule,delayed release(DR/EC) 60 mg PO DAILY Eliquis 5 mg tablet 5 mg PO BID tamsulosin 0.4 mg capsule 0.4 mg PO HS fluticasone propionate 50 mcg/actuation spray,suspension 1 spray INTRANASAL DAILY Rx Instructions: 1 spray in both nostrils clopidogrel 75 mg Tablet 75 mg PO DAILY 30 Days Qty: 30 0RF spironolactone 25 mg Tablet 25 mg PO DAILY 30 Days Qty: 30 0RF Jardiance 10 mg Tablet 10 mg PO DAILY 30 Days Qty: 30 0RF oxybutynin chloride 5 mg tablet 5 mg PO BID PRN (Reason: bladder spasms) Qty: 60 0RF dutasteride 0.5 mg Capsule 0.5 mg PO DAILY atorvastatin 80 mg tablet 80 mg PO HS Held Entresto 24-26 mg tablet 1 tab PO BID Qty: 60 5RF Hold Instructions: hold until follow-up with cariology Discontinued doxycycline hyclate 100 mg Capsule 100 mg PO BID Rx Instructions: take for 3 days, FILLED 07/23/24 aspirin [Aspir-Low] 81 mg Tablet,Delayed Release (Dr/Ec) 81 mg PO DAILY carvedilol 3.125 mg Tablet 3.125 mg PO BID Rx Instructions: must administer with a meal/food cefdinir 300 mg Capsule 300 mg PO BID Rx Instructions: take for 3 days, FILLED 07/26/24 Problem Reconciliation Problems Reviewed?: Yes Patient Discharge Instructions ACTIVITY: Continue current activity DIET: continue same diet Patient Instructions: Heart Failure, Heart-Healthy Diet, DI for Heart Failure, Stop Light Pneumonia, Stop Light Heart Failure Print Language: [place] Providers Primary Care Provider: Stefania Pagan Admit Provider: Carroll Catalan Attending Provider: Carroll Catalan
[2024-07-30 13:40] LABS: Procalcitonin 0.095 ng/mL (0.0-2.0)
--- NOTE | 2024-07-30 13:59 | EXP.CARD.PN ---
Subjective Subjective Date: 07/30/24 Time: 09:30 Interval history: Successful TREATER HELPER-D placement yesterday. Mild swelling/hematoma around site today otherwise no issues overnight. Patient reports feeling somewhat improved already. Exam Data for Last 24 hours Vital signs and Labs for Last 24 Hours: Temp Pulse Resp BP Pulse Ox O2 Del Method 97.4 F L 73 19 115/59 L 95 Room Air 07/30/24 12:00 07/30/24 12:00 07/30/24 12:07/30/24 12:07/30/24 12:07/30/24 12:53 Laboratory Results - last 24 hr 07/30/24:: WBC 10.5 D, RBC 3.56 L, Hgb 11.0 L, Hct 33.6 L, MCV 94.4 H, MCH 30.9, MCHC 32.7, RDW 16.3, Plt Count 235, MPV 10.4, Neut % (Auto) 81.0 H, Lymph % (Auto) 10.9, [place] % (Auto) 5.8, Eos % (Auto) 1.2, Baso % (Auto) 0.2, Neut # (Auto) 8.5 H, Lymph # (Auto) 1.1, [place] # (Auto) 0.6, Eos # (Auto) 0.1, Baso # (Auto) 0.0, Sodium 133 L, Potassium 4.1, Chloride 107, Carbon Dioxide 22, Anion Gap 8.1, BUN 8 L, Creatinine 0.80, Estimated Creat Clear 50, Estimated GFR 93, Est GFR ( Amer) 112, Glucose 82, Calcium 8.3 L, Magnesium 1.8, Total Bilirubin 0.7, AST 17, ALT 10 L, Alkaline Phosphatase 106, Total Protein 5.4 L, Albumin 2.8 L, Globulin 2.6, Albumin/Globulin Ratio 1.1, Procalcitonin 0.095 I & O for Last 24 hours: Intake & Output 07/27/24 07/28/24 07/29/24 07/30/24 23:59 23:59 23:59 23:59 Intake Total 843.109 / 843.109 240 / 390 150 / 540 780 / 780 Output Total 985 / 1285 1465 / 1640 875 / 1075 1400 / 1400 Balance -141.891 / -441.891 -1225 / -1250 -725 / -535 -620 / -620 Weight 131 lb 13.383 oz 135 lb 1.6 oz 133 lb 15.951 oz 133 lb 15.951 oz Microbiology Reports for the Last 24 Hours: Microbiology 07/28/24 08:08 Urine,Clean Catch Urine Culture - Final 07/29/24 14:20 Sputum - Expectorated Sputum Gram Stain - Final Constitutional Constitutional: no acute distress and cooperative *Routine HEENT Exam Eye: Present PERRL *Routine Respiratory Exam Respiratory: Present CTA bilaterally; Absent accessory muscle use, wheezes or crackles *Routine Cardiovascular Exam Cardiovascular: Present RRR, Normal S1 and Normal S2; Absent murmur, gallop or rubs Comments: Mild to moderate bruising and tenderness around device implant. *Routine Abdominal Exam Abdominal: Present soft; Absent tenderness *Routine Extremities Exam Extremities: Present pulses intact; Absent cyanosis or edema *Routine Skin Exam Skin: Present intact; Absent erythema or wounds *Routine Neurological Exam Neurological: Present alert and oriented X3 Routine Psychiatric Exam Psychiatric: Present cooperative Progress Note: A&P Assessment and plan (1) Sustained ventricular tachycardia: Status: Acute (2) Pneumonia: Status: Acute (3) Hemoptysis: Status: Acute (4) Acute non-ST elevation myocardial infarction (NSTEMI): Status: Resolved (5) Atypical angina: Status: Resolved (6) CAD (coronary artery disease): Status: Chronic (7) HTN (hypertension): Status: Chronic (8) HLD (hyperlipidemia): Status: Chronic (9) HFrEF (heart failure with reduced ejection fraction): Status: Acute (10) PAD (peripheral artery disease): Status: Chronic (11) Stenosis of carotid artery: Status: Acute (12) Acute exacerbation of chronic obstructive pulmonary disease: Status: Resolved Assessment and Plan Assessment and Plan for All Diagnoses:: Recurrent Sustained VT requiring Defibrillation - 1st episode after anesthesia at [facility] on 07/22 - 2nd episode at home with LifeVest on 07/26 - stable here on Amio - 07/30: TREATER HELPER-D successfully placed for secondary prevention 07/29 Hemoptysis - Patient was coded last week, unclear if he had chest compressions or intubation - Chest x-ray here suggest possible right pneumonia, on antibiotics - 07/30: symptoms appear resolved, will continue to monitor closely Multivessel CAD - Status post CABG 1997, stents to vein grafts April 2024 - 07/30: CCS = 1, continue Plavix, resume Eliquis, beta-natalie, statin HFrEF - EF 40% - euvolemic - s/p TREATER HELPER-D here 07/26 for recurrent VT and bradycardia - continue Jardiance, Aldactone, Coreg - no Entresto due to hypotension, consider resuming as outpatient. Longstanding persistent atrial fibrillation - Sinus rhythm now after LifeVest cardioversion for VT on 07/26 - 07/30: Continue amiodarone and metoprolol. Resume OAC. Hypertension with renal artery stenosis status post renal stenting 2016 - BPs low normal here 80-100 systolic - Continue aspirin, statin, BB. 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 He needs office follow-up with us in 7 to 10 days for staple removal. CV DC Meds - Plavix 75 mg 1 p.o. daily - Eliquis 5 mg 1 p.o. twice daily - Jardiance 10 mg 1 p.o. daily - Metoprolol tartrate 50 mg twice daily - Aldactone 25 mg 1 p.o. daily - Hold Entresto for now due to low blood pressure - Amiodarone 400 mg twice daily x 14 days then will reduce dose as an outpatient - Atorvastatin 80 mg p.o. nightly
--- NOTE | 2024-07-31 10:57 | SW/DCPLANNER ---
Spoke with patient's daughter on the phone. Patient's daughter stated that her father is weak and isnt doing good. Patient's daughter stated that she has tried to call her father's DR and cant get through to them. Patient's daughter stated that she is aware of her dads upcoming appointments. Patient's daughter stated that she was able to get her dads new medicine picked up from clinic pharmacy. Patient's daughter stated that she has no concerns or questions at this time. I expressed to the daughter that if she thinks her dad isnt doing better that she needs to maybe bring him back to the ER and also asked the daughter if she thinks her father is becoming too much to care for if she has thought about placement. Zhane ELAM Faculty Head
== END 2024-07-30 16:47 | disposition home health service (06) | DRG 276 ==
LOC: ER 21:39 → ICU 21:48 → 2ND 07-27 21:18
PROVIDERS: Internal Medicine; Internal Medicine Adolescent Medicine; Student in an Organized Health Care Education/Training Program; Admitting Provider Student in an Organized Health Care Education/Training Program; Emergency Provider Student in an Organized Health Care Education/Training Program; PCP Nurse Practitioner Family; Visit Provider Student in an Organized Health Care Education/Training Program
PROC: 0JH609Z Insertion of Cardiac Resynchronization Defibrillator Pulse Generator into Chest Subcutaneous Tissue and Fascia, Open Approach (ICD-10-PCS; CPT 33249; principal; 2024-07-29 12:00)
DX: I47.20 Ventricular tachycardia, unspecified (principal); J15.69 Pneumonia due to other Gram-negative bacteria; N39.0 Urinary tract infection, site not specified; I50.22 Chronic systolic (congestive) heart failure; Z16.11 Resistance to penicillins; I48.19 Other persistent atrial fibrillation; I25.10 Atherosclerotic heart disease of native coronary artery without angina pectoris; E78.2 Mixed hyperlipidemia; N40.0 Benign prostatic hyperplasia without lower urinary tract symptoms; I65.23 Occlusion and stenosis of bilateral carotid arteries; I73.9 Peripheral vascular disease, unspecified; I25.5 Ischemic cardiomyopathy; I11.0 Hypertensive heart disease with heart failure; Z95.1 Presence of aortocoronary bypass graft; Z95.5 Presence of coronary angioplasty implant and graft; Z79.01 Long term (current) use of anticoagulants; Z79.51 Long term (current) use of inhaled steroids; Z79.899 Other long term (current) drug therapy; D64.9 Anemia, unspecified; F12.10 Cannabis abuse, uncomplicated; Z89.611 Acquired absence of right leg above knee; R00.1 Bradycardia, unspecified; S01.81XA Laceration without foreign body of other part of head, initial encounter; Y92.230 Patient room in hospital as the place of occurrence of the external cause
CPT/HCPCS: 36415; 71045; 80053; 81001; 82962; 83735; 84100; 84145; 84439; 84443; 84484; 85025; 85610; 85730; 87070; 87077; 87081; 87086; 87186; 87205; 93005; 93308; 94640; 97162; 99152; 99153; C1769; C1882; C1895; C1898; C1900; J0282; J0696; J1956; J2003; J2004; J2704; J3475; J7060; Q9967

== ENCOUNTER 2024-09-02 19:51 | Emergency (ER) | payer OTHER, MEDICARE, BC, SELFPAY ==
--- OUTSIDE RECORDS SUMMARY | 2024-07-30 08:00 | XMS_ITS ---
Author Organization [facility] Address [address] [place] [address] Care Team Providers Care Mold Washer Name Role Phone Karol Pagan Primary Care Provider KAROL Pagan APRN Unavailable Unavailable REASON FOR VISIT 6 Week F/U Encounters Encounter Location Date Provider Diagnosis [facility] [address] [place] [address] 07/30/2024 Karol Pagan Plan Of Treatment No Information Progress Notes * Ti RODRÍGUEZDOB: 3 (84 yo M)Acc No.[id number]:07/30/2024 Progress Notes Patient: Ti CESPEDES Provider: Sheldon Pagan APRN :1940 A ge:83 Y S ex:Male Date:07/30/2024 Address:[address], [id number] Subjective: * Chief Complaints: * 1 . 6 Week F/U. * Medical History: Objective: * Vitals: Assessment: Plan: * Treatment: * * Electronic signature of Yoan Pagan APRN on 09/02/2024 at 07:55 PM EDT Sign off status: Pending * Provider: Sheldon Pagan APRN Date: 0 07/30/2024 Generated for Rosanna castro/Paulo/Rubén on: 0 09/02/2024 07:55 PM EDT
--- OUTSIDE RECORDS SUMMARY | 2024-08-02 11:00 | XMS_ITS ---
Author Organization [facility] Address [address] [facility] [address] [place] [address] Care Team Providers Care Senior Maintenance Technician Name Role Phone Stefania Pagan Primary Care Provider STEFANIA Pagan APRN Unavailable Unavailable Allergies Allergen (clinical drug ingredient) Drug/Non Drug Allergy documented on EMR Reaction Allergy Type Onset Date Status oseltamivir Tamiflu hallucinations Drug Allergy Active REASON FOR VISIT [facility] follow up, no appetite , fatigue did not wake up until 2pm today that because he got woke up , talking in sleep, skin tear on Rt arm Medications Medication SIG (Take, Route, Frequency, Duration) Notes Start Date End Date Status Famotidine 20 MG 1 tab(s) orally 2 times a day; Duration: 30 days Active Levocetirizine Dihydrochloride 5 MG 1 tab(s) orally once a day (in the evening); Duration: 30 days Active Trelegy Ellipta 100 MCG-62.5 MCG-25 MCG/INH INHALE 1 PUFF ONCE DAILY; Duration: 30 *Please review and pick correct strength-formulati on from Medispan options. If intended option is not shown, discontinue and re-order from Quick Search* Active DULoxetine HCl 60 MG 1 cap(s) orally once a day; Duration: 90 days Active Flonase Allergy Relief 50 MCG/ACT 1 spray(s) in each nostril once a day; Duration: 30 days Active Dutasteride 0.5 MG 1 cap(s) orally once a day Active Entresto 24-26 MG 1 tablet Orally Twice a day on hold untill see cardiology Active Acetaminophen 325 MG 2 tabs Orally every 4 hrs as needed Active Ipratropium-Albuterol 0.5-2.5 (3) MG/3ML 3 mL as needed Inhalation every 6 hrs Active HYDROcodone-Acetaminoph en 5-325 MG 1 tablet as needed Orally every 4 hrs as needed Active Amiodarone HCl 200 MG 2 tabs Orally twice a day Active Finasteride 5 MG 1 tablet Orally Once a day Active oxyBUTYnin Chloride 5 MG 1 tablet Orally twice a day Active Eliquis 5 MG TAKE 1 TABLET BY MOUTH 2 TIMES A DAY; Duration: 30 days Active Metoprolol Tartrate 50 MG 1/2 tab orally 2 times a day Active Mirtazapine 15 MG 1/2 tablet at bedtime Orally Once a day; Duration: 30 days 08/02/2024 Active Lansoprazole 30 MG TAKE 1 CAPSULE BY MOUTH ONCE DAILY; Duration: 30 Active Tamsulosin HCl 0.4 MG TAKE 1 CAPSULE BY MOUTH AT BEDTIME; Duration: 30 Active Nystatin 156061 UNIT/GM 1 chely applied topically 3 times a day; Duration: 14 days Active Memantine HCl 5 MG 1 tablet Orally twice a day; Duration: 30 days Active Atorvastatin Calcium 80 MG 1 tablet Orally Once a day; Duration: 30 days Active Spironolactone 25 MG 1 tablet Orally once a day; Duration: 30 days Active Clopidogrel Bisulfate 75 MG 1 tablet Orally Once a day; Duration: 30 days Active Jardiance 10 MG 1 tablet Orally Once a day; Duration: 30 days Active Albuterol Sulfate HFA 108 (90 Base) MCG/ACT 2 INH inhaled every 4 hours; Duration: 30 days 05/07/2024 Active Social History Tobacco Use: Social History Observation Description Date Details (start date - stop date) Former Smoker NA - NA Smoking: Question Answer Notes Are you a: former smoker Problems Problem Type SNOMED Code ICD Code Onset Dates Problem Status W/U Status Risk Notes Problem Primary insomnia (1578675) Primary insomnia (F51.01) Active confirmed Problem Acute on chronic systolic heart failure (601598273) Acute on chronic systolic heart failure (I50.23) Active confirmed Problem Adult failure to thrive syndrome (768508698) Adult failure to thrive (R62.7) Active confirmed Vital Signs Temperature 98 degrees Fahrenheit 08/02/2024 Heart Rate 88 /min 08/02/2024 Blood pressure systolic 100 mm Hg 08/03/19 25 Blood pressure diastolic 64 mm Hg 025 Height 65 in 08/02/2024 Weight 130 lbs 08/02/2024 BMI 21.63 kg/m2 08/02/2024 Encounters Encounter Location Date Provider Diagnosis [address] [address] 08/02/2024 Stefania AlbaroNadiratricia V-tach I47.20 ; Acut e on chronic systolic heart failure I50.23 ; Pneumonia of right lower lobe due to infectious organism J18.9 ; Adult failure to thrive R62.7 ; Presence of cardiac resynchronization therapy defibrillator ([employer]) Z95.810 ; Acute cystitis without hematuria N30.00 ; Weakness R53.1 ; Primary insomnia F51.01 ; Essential (primary) hypertension I10 ; Coronary artery disease involving [place] coronary artery of [place] heart without angina pectoris I25.10 ; Chronic obstructive pulmonary disease, unspecified COPD type J44.9 ; Mixed hyperlipidemia E78.2 ; Paroxysmal atrial fibrillation I48.0 ; Benign prostatic hyperplasia with lower urinary tract symptoms N40.1 ; Kidd catheter in place Z97.8 and Vasovagal syncope R55 Assessments Encounter Date Diagnosis (ICD Code) Assessment Notes Treatment Notes Treatment Clinical Notes Section Notes 08/02/2024 V-tach (ICD-10 - I47.20) Extensive time spent in chart review, with patient during syncopal event and with patient/family in interview and discussing plan of care. Given his continued decline despite aggressive medical care and recurrent hospitalizations decision to consult Hospice for palliative care was made. Will gladly follow Mr. Rodríguez if admitted to Hospice. Cancel home health for PT/OT Code status discussed- DNR Decrease beta natalie due to low blood pressure, syncopal event Change trazodone to remeron as it could be contributing to fatigue. Remeron may help some with appetite as well. Finish levaquin- sputum CX Enterobacter Cloacae- sensitive to levaquin 08/02/2024 Acute on chronic systolic heart failure (ICD-10 - I50.23) 08/02/2024 Pneumonia of right lower lobe due to infectious organism (ICD-10 - J18.9) 08/02/2024 Adult failure to thrive (ICD-10 - R62.7) 08/02/2024 Presence of cardiac resynchronization therapy defibrillator ([employer]) (ICD-10 - Z95.810) 08/02/2024 Acute cystitis without hematuria (ICD-10 - N30.00) 08/02/2024 Weakness (ICD-10 - R53.1) 08/02/2024 Primary insomnia (ICD-10 - F51.01) 08/02/2024 Essential (primary) hypertension (ICD-10 - I10) 08/02/2024 Coronary artery disease involving [place] coronary artery of [place] heart without angina pectoris (ICD-10 - I25.10) 08/02/2024 Chronic obstructive pulmonary disease, unspecified COPD type (ICD-10 - J44.9) 08/02/2024 Mixed hyperlipidemia (ICD-10 - E78.2) 08/02/2024 Paroxysmal atrial fibrillation (ICD-10 - I48.0) 08/02/2024 Benign prostatic hyperplasia with lower urinary tract symptoms (ICD-10 - N40.1) 08/02/[address] (ICD-10 - Z97.8) 08/02/2024 Vasovagal syncope (ICD-10 - R55) Syncopal event in office today while having BM 15 minutes to return to baseline Found to be hypotensive Decrease beta natalie Encourage po fluid intake Discussed sending to hospital verses palliative care. Family/patient would like to return home with Hospice Consult which has been made. Plan Of Treatment Medication Medication Name Sig Start Date Stop Date Notes Metoprolol Tartrate 50 MG 1/2 tab orally 2 times a day traZODone HCl 100 MG 1 tab orally at bedtime Mirtazapine 15 MG 1/2 tablet at bedtim e Orally Once a day; Duration: 30 days 08/02/2024 Treatment Notes Assessment Notes V-tach Extensive time spent in chart review, with patient during syncopal event and with patient/family in interview and discussing plan of care. Given his continued decline despite aggressive medical care and recurrent hospitalizations decision to consult Hospice for palliative care was made. Will gladly follow Mr. Rodríguez if admitted to Hospice. Cancel home health for PT/OT Code status discussed- DNR Decrease beta natalie due to low blood pressure, syncopal event Change trazodone to remeron as it could be contributing to fatigue. Remeron may help some with appetite as well. Finish levaquin- sputum CX Enterobacter Cloacae- sensitive to levaquin Vasovagal syncope Syncopal event in office today while having BM 15 minutes to return to baseline Found to be hypotensive Decrease beta natalie Encourage po fluid intake Discussed sending to hospital verses palliative care. Family/patient would like to return home with Hospice Consult which has been made. Next Appt Details Follow Up: prn, Reason: Progress Notes * Ti RODRÍGUEZDOB: 3 (83 yo M)Acc No.[id number]:08/02/2024 [facility] F/U Patient: Ti CESPEDES Provider: Sheldon Pagan APRN :1940 A ge:83 Y S ex:Male Date:08/02/2024 Address: [address], [place], [id number] Subjective: * Chief Complaints: * 1 . [facility] follow up. 2. No appetite , fatigue did not wake up until 2pm today that because he got woke up , talking in sleep. 3. skin tear on Rt arm. * HPI: g en: Mr. Rodríguez is an 83-year-old man with multiple chronic medical conditions who presents today with daughter for [facility] FU s/p admission for V. Tach, decompensated heart failure, pneumonia with hemoptysis and UTI. The week before [facility] admission patient had sustained V Tach after anesthesia at [facility] on 07/22, TURP procedure was aborted. He was sent home with a life vest which shocked him again on 07/26. On arrival to [facility] following shock p atient was in A. Fib RVR. Found to have UTI, pneumonia, treated with IV abx. Cardiology consulted, started on amiodarone and on 07/29 [employer] was placed for secondary prevention of V. Tach and bradycardia. Extensive cardiac history including ischemic cardiomyopathy, CABG, recent PCI x 2 SVG to RCA and D1. Tolerated [employer] procedure well. Hemoglobin stable even with small hematoma at pacer pocket. Seen by pulmonology for hemoptysis which was thought to be related to pneumonia and has resolved. Discharged home on amiodarone, beta natalie and Levaquin. Entresto on hold due to low blood pressures. Today, daughters report since discharge from [facility] on 07/30 patient has slept most the day, woke up at 2pm today. No appetite, minimal po intake. Over the last few months he has shown gradual decline and failure to thrive. Vasovagal syncope in our office while having BM today, took approx 15 minutes for patient to respond appropriately with SBP around 90 once he was back to baseline. Daughters report similar episode at home a couple of days ago. Sheldon Rodríguez slept the majority of the visit but would wake up and appropriately answer questions. Denies pain. Reports no appetite, nothing looks or tastes good. Feels tired all the time. Code status discussed with Mr. Rodríguez and his daughters. Patient desires to be a DNR. Home health for PT/OT was ordered at discharge from [facility] and daughter know he is too weak for therapy at this point. Given his multiple decompensating chronic health conditions and progressive decline and failure to thrive despite aggressive medical treatment, recurrent hospitalizations and ER visits, goals of care were discussed in depth and decision to consult Hospice for palliative care was made. * ROS: A LLERGY: no R unny nose. R ESPIRATORY: Shortness of breath y es. C hest congestion y es.?Cough y es. C ARDIOLOGY: no C hest pain. n o L eg edema. C ONSTITUTIONAL: Loss of appetite y es. n o F ever. W eakness?yes. W eight loss yes. F atigue yes. D ERMATOLOGY: no R beau. G ASTROENTEROLOGY: no V omiting. n o D iarrhea. n o C onstipation. H EMATOLOGY/LYMPH: no S wollen glands. N EUROLOGY: no H eadache. M minna loss yes. P SYCHOLOGY: Sleep disturbances y es. U ROLOGY: Positive for f oley cath in place. 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 * Family History: F ather: , heart [...] no. Occupation: retired. * Medications: T aking oxyBUTYnin Chloride 5 MG Tablet 1 tablet Orally twice a day , Taking Finasteride 5 MG Tablet 1 tablet Orally Once a day , Taking Amiodarone HCl 200 MG Tablet 2 tabs Orally twice a day , Taking HYDROcodone-Acetaminophen 5-325 MG Tablet 1 tablet as needed Orally every 4 hrs as needed , Taking Ipratropium-Albuterol 0.5-2.5 (3) MG/3ML Solution 3 mL as needed Inhalation every 6 hrs , Taking Acetaminophen 325 MG Tablet 2 tabs Orally every 4 hrs as needed , Taking Entresto 24-26 MG Tablet 1 tablet Orally Twice a day , Notes to Pharmacist: on hold untill see cardiology, Taking Dutasteride 0.5 MG Capsule 1 cap(s) orally once a day , Taking Flonase Allergy Relief 50 MCG/ACT Suspension 1 spray(s) in each nostril once a day , Taking DULoxetine HCl 60 MG Capsule Delayed Release Particles 1 cap(s) orally once a day , Taking Trelegy Ellipta 100 MCG-62.5 MCG-25 MCG/INH POWDER INHALE 1 PUFF ONCE DAILY , Notes to Pharmacist: *Please review and pick correct strength-formulation from Medispan options. If intended option is not shown, discontinue and re-order from Quick Search*, Taking Levocetirizine Dihydrochloride 5 MG Tablet 1 tab(s) orally once a day (in the evening) , Taking Famotidine 20 MG Tablet 1 tab(s) orally 2 times a day , Taking Albuterol Sulfate HFA 108 (90 Base) MCG/ACT Aerosol Solution 2 INH inhaled every 4 hours , Taking traZODone HCl 100 MG Tablet 1 tab orally at bedtime , Taking Jardiance 10 MG Tablet 1 tablet Orally Once a day , Taking Metoprolol Tartrate 50 MG Tablet 1 tab(s) orally 2 times a day , Taking Clopidogrel Bisulfate 75 MG Tablet 1 tablet Orally Once a day , Taking Spironolactone 25 MG Tablet 1 tablet Orally once a day , Taking Atorvastatin Calcium 80 MG Tablet 1 tablet Orally Once a day , Taking Memantine HCl 5 MG Tablet 1 tablet Orally twice a day , Taking Nystatin 996188 UNIT/GM Cream 1 chely applied topically 3 times a day , Taking Tamsulosin HCl 0.4 MG Capsule TAKE 1 CAPSULE BY MOUTH AT BEDTIME , Taking Eliquis 5 MG Tablet TAKE 1 TABLET BY MOUTH 2 TIMES A DAY , Taking Lansoprazole 30 MG Capsule Delayed Release TAKE 1 CAPSULE BY MOUTH ONCE DAILY , Discontinued Aspirin 81 MG Tablet Delayed Release 1 tablet Orally Once a day , Discontinued Cephalexin 500 MG Capsule 2 capsules Orally twice a day , Medication List reviewed and reconciled with the patient * Allergies: T amiflu: hallucinations. Objective: * Vitals: N urse: dw, Pain: 0, Temp: 98, RR: 20, HR: 88, BP: 100/64, Ht: 65, Wt: 130, BMI:21.63, Repeat BP: 90/52. * Examination: G eneral Examination: General P leasant and Cooperative, NAD on RA,, frail, elderly, chronically ill appearing. Oral cavity: M oist membranes. Chest: n ormal shape and expansion. Heart: R RR, No m/r/g/h, Nl S1S2, No JVD, 2(+) symmetric pulses. Lungs: l oose rhonchi and wheezes throughout, partially clears with cough. Abdomen: S oft, NTND, BSNA, No organomegaly or peritoneal signs.. Neurologic Exam: A lert and oriented x 3 Moves All 4 Extremities Equally, drowsy, opens eye to name and falls back to sleep quickly. Skin: n ormal, no rash, . Peripheral pulses: d iminished . Extremities: r ight AKA. neck s upple,, no thyromegaly,, no lymphadenopathy,. Psych S omewhat Flattened Affect . f oley cath in place draining clear, yellow urine. Assessment: * Assessment: 1. V -tach - I47.20 (Primary) 2 . A cute on chronic systolic heart failure - I50.23 3 . P neumonia of right lower lobe due to infectious organism - J18.9? 4. A dult failure to thrive - R62.7 5 . P resence of cardiac resynchronization therapy defibrillator ([employer]) - Z95.810 6 . A cute cystitis without hematuria - N30.00 7 . W eakness - R53.1 8 . P rimary insomnia - F51.01 9 . E ssential (primary) hypertension - I10 1 0. C oronary artery disease involving [place] coronary artery of [place] heart without angina pectoris - I25.10 1 1. C hronic obstructive pulmonary disease, unspecified COPD type - J44.9 1 2. M ixed hyperlipidemia - E78.2 1 3. P aroxysmal atrial fibrillation - I48.0 1 4. B enign prostatic hyperplasia with lower urinary tract symptoms - N40.1 1 5. F oley catheter in place - Z97.8 ?16. V asovagal syncope - R55 Plan: * Treatment: 2. P rimary insomnia Start Mirtazapine Tablet, 15 MG, 1/2 tablet at bedtime, Orally, Once a day, 30 days, 15, Refills 0;?Stop traZODone HCl Tablet, 100 MG, 1 tab, orally, at bedtime. 3. E ssential (primary) hypertension Decrease Metoprolol Tartrate Tablet, 50 MG, 1/2 tab, orally, 2 times a day. 4. V asovagal syncope Notes: Syncopal event in office today while having BM 15 minutes to return to baseline Found to be hypotensive Decrease beta natalie Encourage po fluid intake Discussed sending to hospital verses palliative care. Family/patient would like to return home with Hospice Consult which has been made. * Follow Up: p rn * * Sign off status: Completed true * Provider: Sheldon Pagan APRN Date: 0 08/02/2024 Generated for Rosanna castro/Paulo/Ann Marieitting on: 0 09/02/2024 07:55 PM EDT History and Physical Notes * HPI (History of Present Illness) Category Sub-Category Detail Notes Category Not es gen Mr. Rodríguez is an 83-year-old man with multiple chronic medical conditions who presents today with daughter for [facility] FU s/p admission for V. Tach, decompensated heart failure, pneumonia with hemoptysis and UTI. The week before [facility] admission patient had sustained V Tach after anesthesia at [facility] on 07/22, TURP procedure was aborted. He was sent home with a life vest which shocked him again on 07/26. On arrival to [facility] following shock patient was in A. Fib RVR. Found to have UTI, pneumonia, treated with IV abx. Cardiology consulted, started on amiodarone and on 07/29 [employer] was placed for secondary prevention of V. Tach and bradycardia. Extensive cardiac history including ischemic cardiomyopathy, CABG, recent PCI x 2 SVG to RCA and D1. Tolerated [employer] procedure well. Hemoglobin stable even with small hematoma at pacer pocket. Seen by pulmonology for hemoptysis which was thought to be related to pneumonia and has resolved. Discharged home on amiodarone, beta natalie and Levaquin. Entresto on hold due to low blood pressures. Today, daughters report since discharge from [facility] on 07/30 patient has slept most the day, woke up at 2pm today. No appetite, minimal po intake. Over the last few months he has shown gradual decline and failure to thrive. Vasovagal syncope in our office while having BM today, took approx 15 minutes for patient to respond appropriately with SBP around 90 once he was back to baseline. Daughters report similar episode at home a couple of days ago. Mr. Rodríguez slept the majority of the visit but would wake up and appropriately answer questions. Denies pain. Reports no appetite, nothing looks or tastes good. Feels tired all the time. Code status discussed with Mr. Rodríguez and his daughters. Patient desires to be a DNR. Home health for PT/OT was ordered at discharge from [facility] and daughter know he is too weak for therapy at this point. Given his multiple decompensating chronic health conditions and progressive decline and failure to thrive despite aggressive medical treatment, recurrent hospitalizations and ER visits, goals of care were discussed in depth and decision to consult Hospice for palliative care was made. Examination Category Sub-Category Detail Notes Category Not es General Examination Heart: RRR, No m/r/ g/h, Nl S1S2, No JVD, 2(+) symmetric pulses kidd cath in place draining clear, yellow urine Lungs: loose rhonchi and wh eezes throughout, partially clears with cough Abdomen: Soft, NTND, BSNA, No organomegaly or peritoneal signs. Extremities: right AKA Skin: normal, no rash, Neurologic Exam: Alert and oriented x 3 Moves All 4 Extremities Equally, drowsy, opens eye to name and falls back to sleep quickly Oral cavity: Moist membranes Peripheral pulses: diminished Chest: normal shape and exp ansion neck supple,, no thyromeg malena,, no lymphadenopathy, General Pleasant and Cooper[place] tive, NAD on RA,, frail, elderly, chronically ill appearing Psych Somewhat Flattened A ffect
--- OUTSIDE RECORDS SUMMARY | 2024-08-13 07:45 | XMS_ITS ---
Author Organization [facility] Address [address] [place], [place] [address] Care Team Providers Care Contract Loader Name Role Phone Karol Pagan Primary Care Provider KAROL Pagan APRN Unavailable Unavailable REASON FOR VISIT f/u h/stay 07/30/2024 from [facility] Encounters Encounter Location Date Provider Diagnosis [facility] [address] [place] [address] 08/13/2024 Karol Pagan Plan Of Treatment No Information Progress Notes * Ti RODRÍGUEZDOB: 3 (84 yo M)Acc No.[id number]:08/13/2024 [facility]OS[facility] F/U Patient: Zuri CESPEDESry Provider: Sheldon Pagan APRN :1940 A ge:83 Y S ex:Male Date:08/13/2024 Address:[address], [id number] Subjective: * Chief Complaints: * 1 . f/u h/stay 07/30/2024 from [facility]. * Medical History: Objective: * Vitals: Assessment: Plan: * Treatment: * * Electronic signature of Yoan Pagan APRN on 09/02/2024 at 07:55 PM EDT Sign off status: Pending * Provider: Sheldon Pagan APRN Date: 0 08/13/2024 Generated for Rosanna castro/Paulo/Rubén on: 0 09/02/2024 07:55 PM EDT
[2024-09-02] VITALS (8 sets, daily range): BP systolic 129–168; BP diastolic 52–62; PULSE 70; RESP 16–24; TEMP 36.4–37.3; O2SAT 90–98; BMI 24.1
--- OUTSIDE RECORDS SUMMARY | 2024-09-02 19:54 | XMS_ITS ---
Author Name Auto Generated, Auto Generated Organization [facility] Address [address] [place] [address] Phone [phone] Care Team Providers Care Signaling Design Engineer Name Role Phone Ronit Contreras Unavailable Gena, Sary Unavailable Tj Lentz Unavailable [phone] Stefania Rogers Unavailable Percy Rhodes Unavailable [phone] Jasbir Gill Unavailable Functional Status No Results Mental Status No Results Allergies and Intolerances Name Onset Date Reaction Severity No Known Drug Allergies (Allergy) MonAug 06 09: 30:00 EDT 2024 Encounters Program Name Primary Diagnosis Admission Date/Time Dis charge Date/Time Home-based Hospice 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 and stage 1 through stage 4 chronic kidney disease, or unspecified chronic kidney disease MonAug 04 20:00:00 EDT 2024 Medications Medication Directions Start Date End Date amiodarone 200 mg tablet 1 Tablet Oral 2 Times Daily Indication: heart disease MonAug 28 00:00:00 EDT 2024 spironolactone 25 mg tablet 1 Tablet Ora l PRN 1 Time Daily Indication: increased swelling, fluid build up MonAug 20 00:00:00 EDT 2024 metoprolol tartrate 50 mg tablet 0.5 Tablet Oral 2 Times Daily Indication: heart hypertension[ 25 mg] MonAug 20 00:00:00 EDT 2024 docusate sodium 100 mg capsule 1 Capsule Oral PRN 1 Time Daily Indication: constipation, 1-2 tablets daily MonAug 20 00:00:00 EDT 2024 morphine concentrate 100 mg/5 mL (20 mg/mL) oral solution 0.25 Milliliter Oral PRN Every 4 Hours Indication: Pain/SOA: NO MDD EOL MonAug 06 00:00:00 EDT 2024 amiodarone 200 mg tablet 2 Tablet Oral 2 Times Daily Indication: Heart disease MonAug 05 00:00:00 EDT 2024Aug 28 15:17:00 EDT 2024 HYDROcodone 5 mg-acetaminophen 325 mg tablet 1 Tablet Oral PRN Every 6 Hours Indication: Pain #11 MonAug 05 00:00:00 EDT 2024 metoprolol tartrate 50 mg tablet 1 Tablet Oral 2 Times Daily Indication: heart disease MonAug 05 00:00:00 EDT 2024Aug 20 13:41:00 EDT 2024 clopidogreL 75 mg tablet 1 Tablet Oral E very Morning Indication: Heart disease MonAug 05 00:00:00 EDT 2024 famotidine 20 mg tablet 1 Tablet Oral Ev giana Morning Indication: GERD MonAug 05 00:00:00 EDT 2024 Cymbalta 60 mg capsule,delayed release 1 Capsule Oral Every Afternoon Indication: Depression MonAug 05 00:00:00 EDT 2024 spironolactone 25 mg tablet 1 Tablet Ora l Every Morning Indication: Fluid retention MonAug 05 00:00:00 EDT 2024Aug 20 13:41:00 EDT 2024 Remeron 15 mg tablet 1 Tablet Oral Hour Of Sleep Indication: Sleep 1/2 tablet for sleep MonAug 06 00:00:00 EDT 2024 hyoscyamine 0.125 mg sublingual tablet 1 Tablet Sublingual PRN Every 4 Hours Indication: secretions 1-2 tabs as needed for secretions MonAug 05 00:00:00 EDT 2024 senna 8.6 mg tablet 1 Tablet Oral PRN 1 Time Daily Indication: to initiate when morphine is started as pt. is not currently taking morphine and is not having any constipation at this time, will be used for constipation MonAug 06 00:00:00 EDT 2024 Oxygen 2 Liter Inhalation P RN Indication: 2-4 lpm prn soa via nasal cannula MonAug 06 00:00:00 EDT 2025 LORazepam 0.5 mg tablet 1 Tablet Oral IL N Every 6 Hours Indication: anxiety/SOA SOA/anxiety MonAug 05 00:00:00 EDT 2024 morphine concentrate 100 mg/5 mL (20 mg/mL) oral solution 0.25 Milliliter Oral PRN Every 4 Hours Indication: Pain/SOA MonAug 05 00:00:00 EDT 2024Aug 06 09:26:00 EDT 2024 Treatment Plan Problems No Known Problems Social History Social History Observation Description Date Smoking Status Former smoker MonAug 05 00:00 :00 EDT 2024 Sex Male MonAug 16 00:00 :00 EDT 1941 Vital Signs Vital Sign Measurement Date Systolic blood pressure 138 mm[Hg] MonAug 20 07:30:00 EDT 2024 Diastolic blood pressure 72 mm[Hg] MonAug 20 07:30:00 EDT 2024 Respiratory rate 24 /min MonAug 20 07:3 0:00 EDT 2024 Heart rate 72 /min MonAug 20 07:30 :00 EDT 2024 Systolic blood pressure 128 mm[Hg] MonAug 27 06:55:00 EDT 2024 Diastolic blood pressure 62 mm[Hg] MonAug 27 06:55:00 EDT 2024 Respiratory rate 20 /min MonAug 27 06:5 5:00 EDT 2024 Heart rate 76 /min MonAug 27 06:55 :00 EDT 2024 Respiratory rate 20 /min MonAug 14 06:2 5:00 EDT 2024 Systolic blood pressure 112 mm[Hg] MonAug 13 05:50:00 EDT 2024 Diastolic blood pressure 50 mm[Hg] MonAug 13 05:50:00 EDT 2024 Respiratory rate 20 /min MonAug 13 05:5 0:00 EDT 2024 Heart rate 69 /min MonAug 13 05:50 :00 EDT 2024 Systolic blood pressure 160 mm[Hg] MonAug 06 06:00:00 EDT 2024 Diastolic blood pressure 60 mm[Hg] MonAug 06 06:00:00 EDT 2024 Respiratory rate 18 /min MonAug 06 06:0 0:00 EDT 2024 Heart rate 76 /min MonAug 06 06:00 :00 EDT 2024 Respiratory rate 20 /min MonAug 14 10:1 0:00 EDT 2024 Reason for Referral
--- OUTSIDE RECORDS SUMMARY | 2024-09-02 19:54 | XMS_ITS ---
Author Name Auto Generated, Auto Generated Organization [facility] Address [address] [place] [address] Phone [phone] Care Team Providers Care Woodworking Machine Offbearer Name Role Phone Ronit Contreras Unavailable Gena, Sary Unavailable Tj Lentz Unavailable [phone] Stefania Rogers Unavailable Percy Rhodes Unavailable Jasbir Gill Unavailable Functional Status No Results [...] LORazepam 0.5 mg tablet 1 Tablet Oral SC N Every 6 Hours Indication: anxiety/SOA SOA/anxiety [...] 05 00:00 :00 EDT 2024 Sex Male [place] Aug 16 00:00 :00 EDT 1941 Vital Signs Vital Sign Measurement Date Systolic blood pressure 112 mm[Hg] MonAug 13 [...] /min MonAug 14 10:1 0:00 EDT 2024 Respiratory rate 20 /min MonAug 14 06:2 5:00 EDT 2024 Systolic blood pressure 128 mm[Hg] MonAug 27 06:55:00 EDT 2024 Diastolic blood pressure 62 mm[Hg] MonAug 27 06:55:00 EDT 2024 Respiratory rate 20 /min MonAug 27 06:5 5:00 EDT 2024 Heart rate 76 /min MonAug 27 06:55 :00 EDT 2024 Systolic blood pressure 138 mm[Hg] MonAug 20 07:30:00 EDT 2024 Diastolic blood pressure 72 mm[Hg] MonAug 20 07:30:00 EDT 2024 Respiratory rate 24 /min MonAug 20 07:3 0:00 EDT 2024 Heart rate 72 /min MonAug 20 07:30 :00 EDT 2024 Reason for Referral
--- OUTSIDE RECORDS SUMMARY | 2024-09-02 19:55 | XMS_ITS ---
Author Organization [facility] Address [address] [place] [address] Care Team Providers Care Photocopier Technician Name Role Phone Stefania Gilliland HOLD WORKER Primary Care Provider [phone] Active Problems Problem Noted Date Diagnosed Date [...] symptoms 03/17/2023 Coronary artery disease invo lving [place] coronary artery of [place] heart without angina pectoris 03/17/2023 Abdominal aortic aneurysm 03/17/2023 Obesity (BMI 30.0-34.9) 03/17/2023 CKD (chronic kidney disease) 02/14/2023 Overview (02/24/2023): - Cr 1.03 on admit - WNL S/P AKA (above knee amputation), right Overview (03/24/2023): - 02/08/23: Right above knee amputation and right groin 2/: Evarts removed per vascular in ED Class 2 [...]
--- OUTSIDE RECORDS SUMMARY | 2024-09-02 19:55 | XMS_ITS | Encounter Summary ---
Author Organization [facility] Address [address] [place] [address] Care Team Providers Care Business Intelligence Director Name Role Phone Stefania Glililand [employer] Primary Care Provider [phone] Encounter Details Date Type Department Care Team (Late st Contact Info) Description 01/23/2023 Lab Requisition [facility] [address] [place] [address] Ramo Talbot MD [address] [place] [id number] Encounter for general adult medical examination without [...] place to sleep or slept in a [facility] (including now)? No 01/19/2023 Utilities Answer Date [...] ERAL ORDERABLES Final Result Performing Organization Address City/State/[facility] Co de Phone Number [facility] [address] [place] [phone] documented in this encounter Visit Diagnoses Diagnosis [...] documented as of this encounter Care Teams Business Intelligence Director Relationship Specialty Start Date End Date Stefania Gilliland APRN [address] [place] [address] PCP - General 01/20/23 documented as of this encounter
--- OUTSIDE RECORDS SUMMARY | 2024-09-02 19:55 | XMS_ITS | Patient Health Record ---
Author Organization [facility] Address [address] [place] [address] Care Team Providers Care Collect On Delivery Clerk Name Role Phone Stefania Pagan Primary Care Provider STEFANIA Pagan APRN Unavailable Unavailable Migration, Provider Unavailable Unavailable Allergies Allergen (clinical drug ingredient) Drug/Non Drug Allergy documented on EMR Reaction Allergy Type Onset Date Status oseltamivir Tamiflu hallucinations Drug Allergy Active Results Component Value Reference Range Notes LIPID PANEL, STANDARD (7600) Reviewed date:02/08/2024 02:31:15 PM Interpretation: Performing Lab:MIHAELA [employer] L[facility]-C[facility]rick Ketx2733 [facility]port[facility]edrickXaqdQB[address] Ernesto Pineda Notes/Report: NON-FASTING; NON-FASTING; NON-FASTING FASTING:YES FASTING: YES CHOLESTEROL, TOTAL 150 <200 mg/dL HDL CHOLESTEROL 41 > OR = 40 mg/dL TRIGLYCERIDES 153 <150 mg/dL LDL-CHOLESTEROL 84 Reference range: <100 Desirable range <100 mg/dL for primary prevention; <70 mg/dL for patients with CHD or diabetic patients with > or = 2 CHD risk factors. LDL-C is now calculated using the Vinay calculation, which is a validated novel method providing better accuracy than the Friedewald equation in the estimation of LDL-C. Lauri MONTENEGRO et al. BROCK. 2013;310(19): 5151-2926 (http://[email or web address].[email or web address] Optech/faq/GVZ145) CHOL/HDLC RATIO 3.7 <5.0 (calc) NON HDL CHOLESTEROL 109 <130 mg/dL (calc) For patients with diabetes plus 1 major ASCVD risk factor, treating to a non-HDL-C goal of <100 mg/dL (LDL-C of <70 mg/dL) is considered a therapeutic option. COMPREHENSIVE METABOLIC PANE L (42504) Reviewed date:02/08/2024 02:31:16 PM Interpretation: Performing Lab:MIHAELA [employer] [id number] [facility], [place] [facility] HospitalHpsxAC[address] Ernesto Pineda Notes/Report: NON-FASTING; NON-FASTING; NON-FASTING FASTING:YES FASTING: YES GLUCOSE 93 65-99 mg/dL Fasting reference interval UREA NITROGEN (BUN) 11 7-25 mg/dL CREATININE 1.15 0.70-1.22 mg/dL EGFR 64 > OR = 60 mL/min/1.73m2 BUN/CREATININE RATIO SEE NOTE: 6-22 (calc) Not Reported: BUN and Creatinine are [...] 13 10-35 U/L ALT 15 9-46 U/L [facility] METABOLIC PANE L (23224) Reviewed date:05/02/2024 12:40:44 PM Interpretation: Performing Lab:MIHAELA [employer] [id number] [facility], [facility] HospitalHqjuIH[address] Ernesto Pineda Notes/Report: NON-FASTING; NON-FASTING; NON-FASTING; NON-FASTING GLUCOSE 103 65-99 mg/dL Fasting reference interval For someone without known diabetes, a glucose value between 100 and 125 mg/dL is consistent with prediabetes and should be confirmed with a follow-up test. UREA NITROGEN (BUN) 10 7-25 mg/dL CREATININE 0.96 0.70-1.22 mg/dL EGFR 79 > OR = 60 mL/min/1.73m2 BUN/CREATININE RATIO SEE NOTE: 6-22 (calc) Not Reported: BUN and Creatinine are [...] 8 10-35 U/L ALT 9 9-46 U/L CBC (INCLUDES DIFF/PLT) (639 9) Reviewed date:05/02/2024 12:40:44 PM Interpretation: Performing Lab:CB, [facility] [address], [facility] HospitalDujqCJ[address] Ernesto Pineda Notes/Report: NON-FASTING; NON-FASTING; NON-FASTING; NON-FASTING [...] MPV 10.6 7.5-12.5 fL ABSOLUTE NEUTROPHILS 4422 3470-8954 cells/uL ABSOLUTE LYMPHOCYTES 4230 571-2900 cells/uL ABSOLUTE MONOCYTES 429 200-950 cells/uL ABSOLUTE EOSINOPHILS 40 15-500 cells/uL ABSOLUTE BASOPHILS 33 0-200 cells/uL NEUTROPHILS 67 LYMPHOCYTES 25.4 MONOCYTES 6.5 EOSINOPHILS 0.6 BASOPHILS 0.5 CBC (INCLUDES DIFF/PLT) (639 9) Reviewed date:02/08/2024 02:31:16 PM Interpretation: Performing Lab:MIHAELA [employer] Scaj1595 [employer], QardioStxyWV[address] Ernesto Pineda Notes/Report: NON-FASTING; NON-FASTING; NON-FASTING FASTING:YES FASTING: YES WHITE BLOOD CELL COUNT 7.0 3.8-10.8 Thousand/ [...] MPV 11.0 7.5-12.5 fL ABSOLUTE NEUTROPHILS 4872 8064-2748 cells/uL ABSOLUTE LYMPHOCYTES 8575 274-0253 cells/uL ABSOLUTE MONOCYTES 434 200-950 cells/uL ABSOLUTE EOSINOPHILS 42 15-500 cells/uL ABSOLUTE BASOPHILS 28 0-200 cells/uL NEUTROPHILS 69.6 LYMPHOCYTES 23.2 MONOCYTES 6.2 EOSINOPHILS 0.6 BASOPHILS 0.4 PSA, TOTAL (5363) Reviewed date:05/02/2024 12:40:44 PM Interpretation: Performing Lab:MIHAELA [facility]idot-Meridiume13[address] [facility], QardioTzqzTU[address] Ernesto Pineda Notes/Report: NON-FASTING; NON-FASTING; NON-FASTING; NON-FASTING [...] of the presence or absence of disease. TSH (899) Reviewed date:05/02/2024 12:40:44 PM Interpretation: Performing Lab:MIHAELA, [facility] [address], [facility] HospitalHfrqAL[address] Ernesto Pineda Notes/Report: NON-FASTING; NON-FASTING; NON-FASTING; NON-FASTING TSH 0.35 0.40-4.50 mIU/L Reason For Referral Reason BCN for PT/OT and nursing for kidd catheter care Diagnosis 1 Weakness (R53.1) Referral Organization [facility] JEFFRY COTO Referring Provider First Name Stefania Referring Provider Last Name Ej Referring Provider Speciality Family Pra ctice Referred Organization [facility] Referred Provider Specialty [facility] General Notes Theresa Peitt 2024 01:11:43 PM >[facility] 05/01/2024 04:17:12 PM >starting on Referral Priority Routine Reason please fax order to N okay to change kidd catheter PRN Diagnosis 1 Urinary retention (R 33.9) Referral Organization [facility] JEFFRY COTO Referring Provider First Name Stefania Referring Provider Last Name Ej Referring Provider Speciality Family Pra ctice Referral Priority Routine Reason Home sleep study Diagnosis 1 Urinary retention (R 33.9) Referral Organization [facility] [place] Referring Provider First Name Stefania Referring Provider Last Name Ej Referring Provider Speciality Family Pra ctice Referred Organization [facility] Referred Address [address], [place], [place],[address], Referred Provider Specialty Sleep Study General Notes Theresa Petit 2024 10:37:59 AM >sent to [facility] Referral Priority Routine Reason Hospice Diagnosis 1 Chronic systolic con gestive heart failure (I50.22) Diagnosis 2 Chronic obstructive pulmonary disease, unspecified COPD type (J44.9) Diagnosis 3 Abdominal aortic ane urysm (AAA) without rupture, unspecified part (I71.40) Diagnosis 4 Paroxysmal atrial fi brillation (I48.0) Diagnosis 5 Unilateral AKA, alexandre t (S78.111A) Referral Organization [facility] Referring Provider First Name Stefania Referring Provider Last Name Ej Referring Provider Speciality [facility] General Notes BrianKailey Malu 04:45:28 PM > faxed Referral Priority Routine Medications Medication SIG (Take, Route, Frequency, Duration) Notes Start Date End Date Status Nystatin 029965 UNIT/GM 1 chely applied topically 3 times a day; Duration: 14 days Active Eliquis 5 MG TAKE 1 TABLET BY MOUTH 2 TIMES A DAY; Duration: 30 days Active Ipratropium-Albuterol 0.5-2.5 (3) MG/3ML 3 mL as needed Inhalation every 6 hrs Active HYDROcodone-Acetaminoph en 5-325 MG 1 tablet as needed Orally every 4 hrs as needed Active Amiodarone HCl 200 MG 2 tabs Orally twice a day Active Tamsulosin HCl 0.4 MG TAKE 1 CAPSULE BY MOUTH AT BEDTIME; Duration: 30 Active Finasteride 5 MG 1 tablet Orally Once a day Active oxyBUTYnin Chloride 5 MG 1 tablet Orally twice a day Active Memantine HCl 5 MG [...] 4 hours; Duration: 30 days 05/07/2024 Active Metoprolol Tartrate 50 MG 1/2 tab orally 2 times a day Active Mirtazapine 15 MG 1/2 tablet at bedtime Orally Once a day; Duration: 30 days 08/02/2024 Active Famotidine 20 MG 1 tab(s) orally 2 times a day; Duration: 30 days Active Levocetirizine Dihydrochloride 5 MG 1 tab(s) orally once a day (in the evening); Duration: 30 days Active Trelegy Ellipta 100 MCG-62.5 MCG-25 MCG/INH INHALE 1 PUFF ONCE DAILY; Duration: 30 *Please review and pick correct strength-formulati on from Opsonaan options. If intended option is not shown, [...] Orally every 4 hrs as needed Active Lansoprazole 30 MG TAKE 1 CAPSULE BY MOUTH ONCE DAILY; Duration: 30 Active Immunizations Vaccine Route Administration Date Status Comme nts Fluzone High Dose IM Intramuscular 12/19/2023 Administered Prevnar PCV-20 (Pneumococcal conjugate 20) IM Intramuscular 12/19/2023 Administered Social History Tobacco Use: Social History Observation Description Date Details (start date - stop date) Former Smoker NA - NA Smoking: Question Answer Notes Are you a: former smoker Problems Problem Type SNOMED Code ICD Code Onset Dates Problem Status W/U Status Risk Notes Problem Mixed hyperlipidemia (598540364) Mixed hyperlipidemia (E78.2) Active confirmed Problem Primary insomnia (9297056) Primary insomnia (F51.01) Active confirmed Problem Essential hypertension (97714193) Essential (primary) hypertension (I10) Active confirmed Problem Paroxysmal atrial fibrillation (767632988) Paroxysmal atrial fibrillation (I48.0) Active confirmed Problem Adult failure to thrive syndrome (418628509) Adult failure to thrive (R62.7) Active confirmed Problem 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, level unspecified, initial encounter (S88.921A) Active confirmed Problem Long-term current use of anticoagulant (501598222) half-way (current) use of anticoagulants (Z79.01) Active confirmed Problem Long-term current use of antithrombotic (577080270777892) intermediate project manager (current) use of antithrombotics/a ntiplatelets (Z79.02) Active confirmed Problem 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) Active confirmed Problem Urinary retention (155955599) Urinary retention (R33.9) Active confirmed Problem Neuropathy (418946908) Neuropathy (G62.9) Active confirmed Problem Gastroesophageal reflux disease (007071930) GERD without esophagitis (K21.9) Active confirmed Problem Seasonal allergy (400717930) Seasonal allergies (J30.2) Active confirmed Problem Acute exacerbation of chronic obstructive airways disease (508982929) COPD exacerbation (J44.1) Active confirmed Problem Fatigue (50943478) Fatigue (R53.83) Active conf irmed Problem Acute on chronic systolic heart failure (888471761) Acute on chronic systolic heart failure (I50.23) Active confirmed Problem Memory loss (84679926) Memory loss (R41.3) Active confirmed Problem Atherosclerotic heart disease of [place] coronary artery without angina pectoris (860384892235203) Coronary artery disease involving [place] coronary artery of [place] heart without angina pectoris (I25.10) Active confirmed Problem COPD - Chronic obstructive pulmonary disease (98742960) Chronic obstructive pulmonary disease, unspecified COPD type (J44.9) Active confirmed Problem Chronic systolic heart failure (951643544) Chronic systolic congestive heart failure (I50.22) Active confirmed Problem Psoriasis of scalp (007742060) 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) Active confirmed Problem Ataxia (57149721) Ataxia (R27.0) Active confirm ed Problem Heart failure (53202109) Acute on chronic congestive heart failure, unspecified congestive heart failure type (I50.9) Active confirmed Problem Gouty arthritis (43123559) Gouty arthritis (M10.9) Active confirmed Problem Reactive depression (situational) (63775455) 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) Active confirmed Problem Daytime somnolence (192450758677) Daytime somnolence (R40.0) Active confirmed Problem Acute systolic heart failure (384504557) Acute systolic heart failure (I50.21) Active confirmed Problem Lower urinary tract symptoms due to benign prostatic hypertrophy (28776066544056) Benign prostatic hyperplasia with lower urinary tract symptoms (N40.1) Active confirmed Problem Renal artery stenosis (302864601) Renal artery stenosis (I70.1) Active confirmed Problem Skin cancer (495186882) Skin cancer (C44.90) Active confirmed Problem Stenosis of left carotid artery (760877073767506) Stenosis of left carotid artery (I65.22) Active confirmed Problem 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) (48394604330367) Heart failure and kidney disease due to high blood pressure (I13.0) Active confirmed Problem Chronic kidney disease stage 3A (disorder) (542445422) Stage 3a chronic kidney disease (CKD) (N18.31) Active confirmed Problem Chronic kidney disease stage 3 (disorder) (592043314) Chronic kidney disease with symptom management only, stage 3 (moderate) (N18.30) Active confirmed Problem Abdominal aortic aneurysm without rupture (disorder) (18067392) Abdominal aortic aneurysm (AAA) without rupture, unspecified part (I71.40) Active confirmed Problem Subarachnoid intracranial hemorrhage (46268990) SAH (subarachnoid hemorrhage) (I60.9) Active confirmed Problem Unilateral AKA, 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) Active confirmed Vital Signs Heart Rate 88 /min 08/02/2024 Temperature 98 degrees Fahrenheit 08/02/2024 Blood pressure diastolic 64 mm Hg 08/02/2024 Height 65 in 08/02/2024 Blood pressure systolic 100 mm Hg 08/02/2024 Weight 130 lbs 08/02/2024 BMI 21.63 kg/m2 08/02/2024 Encounters Encounter Location Date Provider Diagnosis [facility] [address] [place] [address] 02/06/2024 Stefania McNetricia [facility] [address] [place] [address] 05/25/2024 Provider Migration [facility] [address] [facility] [address] [place] [address] 12/19/2023 Stefania Pagan Unilateral AKA, righ t S78.111A ; Encounter for Medicare annual wellness exam Z00.00 ; Coronary artery disease involving [place] coronary artery of [place] heart without angina pectoris I25.10 ; GERD [...] type J44.9 and Encounter for immunization Z23 [facility] [address] [place] [address] 04/04/2024 Stefania McNees Influenza A J10.1 ; Systolic CHF, acute on chronic I50.23 and Hypoxia R09.02 [facility] [address] [facility] [address] [place], [place] [address] 04/30/2024 Stefania McNees Elevated PSA R97.20 ; Urinary retention R33.9 ; Fatigue, unspecified type R53.83 and Weakness R53.1 [facility] [address] [facility] [address] [facility] [address] [place], [place] [address] 05/28/2024 Stefania McAnand Coronary artery dise ase involving [place] coronary artery of [place] heart without angina pectoris I25.10 ; Human metapneumovirus (hMPV) pneumonia J12.3 ; Other retention of urine R33.8 ; Benign prostatic hyperplasia with lower urinary tract symptoms N40.1 ; Acute systolic heart failure I50.21 ; Memory loss R41.3 and COPD exacerbation J44.1 [facility] [address] [facility] [address] [place], [place] [address] 06/11/2024 Stefania McNees Fatigue, unspecified type R53.83 ; Urinary retention R33.9 ; Snoring R06.83 and Daytime somnolence R40.0 [facility] [address] [address] 08/02/2024 Stefania Ej V-tach I47.20 ; Acut e on chronic systolic heart failure I50.23 ; Pneumonia of right lower lobe due to infectious organism J18.9 ; Adult failure to thrive R62.7 ; Presence of cardiac resynchronization therapy defibrillator (ELASTIC CUTTER-D) Z95.810 ; Acute cystitis without hematuria N30.00 ; Weakness R53.1 ; Primary insomnia F51.01 ; Essential (primary) hypertension I10 ; Coronary artery disease involving [place] coronary artery of [place] heart without angina pectoris I25.10 ; Chronic obstructive pulmonary disease, unspecified COPD type J44.9 ; Mixed hyperlipidemia E78.2 ; Paroxysmal atrial fibrillation I48.0 ; Benign prostatic hyperplasia with lower urinary tract symptoms N40.1 ; Kidd catheter in place Z97.8 and Vasovagal syncope R55 [facility] [address] [place] [address] 03/07/2024 Stefania McNees Ataxia R27.0 and Par tial traumatic amputation of right lower leg, level unspecified, initial encounter S88.921A [facility] [address] [place] [address] 03/29/2024 Stefania McNees [facility] [place] [address] [facility] [address] [place] [address] 04/09/2024 Stefania McNees [facility] [address] [place] [address] 04/15/2024 Stefania McNees [facility] [address] [place] [address] 05/07/2024 Stefania McNees [facility] [address] [place] [address] 05/07/2024 Stefania McNees [facility] [address] [place] [address] 05/09/2024 Stefania McNees [facility] [address] [place] [address] 05/21/2024 Stefania McNees [facility] [address] [place] [address] 06/05/2024 Stefania McNees [facility] [address] [place] [address] 06/12/2024 Stefania McNees [facility] [place] [address] [facility] [address] [place] [address] 06/19/2024 Stefania McNees [facility] [address] [place] [address] 06/19/2024 Stefania McNees [facility] [place] [address] [facility] [address] [place] [address] 07/05/2024 Stefania McNees Yeast dermatitis B37 .2 [facility] [address] [place] [address] 07/05/2024 Stefania McNees [facility] [address] [place] [address] 07/30/2024 Stefania McNees [facility] [address] [place] [address] 07/30/2024 Stefania McNees [facility] [place] [address] [place] [address] 08/05/2024 Stefania McNees Yeast dermatitis B37 .2 [facility] [address] [place] [address] 08/13/2024 Stefania McNees Assessments Encounter Date Diagnosis (ICD Code) Assessment Notes Treatment Notes Treatment Clinical Notes Section Notes 12/19/2023 Encounter for Medicare annual wellness exam (ICD-10 - Z00.00) Given patient''s advanced age is not a candidate for typical healthcare screening such as colonoscopy. No recent falls. Up-to-date with vaccinations. Nonsmoker. 12/19/2023 Unilateral AKA, right (ICD-10 - S78.111A) Doing very well overall with good supportive system 03/07/2024 Ataxia (ICD-10 - R27.0) 04/04/2024 Influenza A (ICD-10 - J10.1) [facility] records reviewed and no further changes to [...] at this point until seen by urology. Home [facility] for f/c care educations and PT/OT to evaluate. Will check PSA and forward to urology as indicated 04/30/2024 Elevated PSA (ICD-10 - R97.20) 05/28/2024 Coronary artery disease involving [place] coronary artery of [place] heart without angina pectoris (ICD-10 - I25.10) [facility] records reviewed. No acute angina. Keep [...] improves 07/05/2024 Yeast dermatitis (ICD-10 - B37.2) 08/02/2024 Acute on chronic systolic heart failure (ICD-10 - I50.23) 08/02/2024 V-tach (ICD-10 - I47.20) Extensive time [...] PT/OT Code status discussed- DNR Decrease beta kimberley due to low blood pressure, syncopal event Change trazodone to remeron as it could be contributing to fatigue. Remeron may help some with appetite as well. Finish levaquin- sputum CX Enterobacter Cloacae- sensitive to levaquin 08/05/2024 Yeast dermatitis (ICD-10 - B37.2) 08/02/2024 Pneumonia of right lower lobe due to infectious organism (ICD-10 - J18.9) 06/11/2024 Snoring (ICD-10 - R06.83) 05/28/2024 Other [...] - S88.921A) 12/19/2023 Coronary artery disease involving [place] coronary artery of [place] heart without angina pectoris (ICD-10 - I25.10) No acute angina 12/19/2023 GERD without esophagitis (ICD-10 - K21.9) Well controlled on PPI and H2 Kimberley. Okay to stop one of them if tolerated but must remain on one for GI protection 04/30/2024 Weakness (ICD-10 - R53.1) 08/02/2024 Adult failure to thrive (ICD-10 - R62.7) 06/11/2024 Daytime somnolence (ICD-10 - R40.0) 05/28/2024 Benign prostatic hyperplasia with lower urinary tract symptoms (ICD-10 - N40.1) F/c in place. Urine cx from ED is pending. Plan for TURP in 6 weeks 05/28/2024 Acute systolic heart failure (ICD-10 - I50.21) Euvolemic today on exam. Tolerating Entresto well. Keep FU with cardiology 08/02/2024 Presence of cardiac resynchronization therapy defibrillator (ELASTIC CUTTER-D) (ICD-10 - Z95.810) 12/19/2023 Essential (primary) hypertension (ICD-10 - I10) Blood pressure a little above goal. Recommend monitoring at home, notify provider if >135/85 consistently 12/19/2023 Mixed hyperlipidemia (ICD-10 - E78.2) Tolerating statin well, will check fasting lipid panel and treat as indicated 05/28/2024 Memory loss (ICD-10 - R41.3) Multifactorial in setting of TBI, CV disease, smoking, recurrent UTI with several hospitalizations. Trial of Namenda. MOA and SE profile discussed. RTC in 2 weeks 08/02/2024 Acute cystitis without hematuria (ICD-10 - N30.00) 08/02/2024 Weakness (ICD-10 - R53.1) 12/19/2023 Paroxysmal atrial fibrillation (ICD-10 - I48.0) Rate well controlled. On Eliquis for anticoagulation, no signs of excessive bleeding 05/28/2024 COPD exacerbation (ICD-10 - J44.1) See above. 12/19/2023 Benign prostatic hyperplasia with lower urinary tract symptoms (ICD-10 - N40.1) Denies urinary symptoms 08/02/2024 Primary insomnia (ICD-10 - F51.01) 08/02/2024 Essential (primary) hypertension (ICD-10 - I10) 12/19/2023 Stage 3a chronic kidney disease (CKD) (ICD-10 - N18.31) Will check CMP to confirm stability. Avoid NSAIDs and nephrotoxic medications 12/19/2023 Chronic systolic congestive heart failure (ICD-10 - I50.22) Euvolemic on exam 08/02/2024 Coronary artery disease involving [place] coronary artery of [place] heart without angina pectoris (ICD-10 - I25.10) 08/02/2024 Chronic obstructive pulmonary disease, unspecified COPD type (ICD-10 - J44.9) 12/19/2023 Situational depression (ICD-10 - F43.21) Well controlled on SNRI to changes made today 12/19/2023 Chronic obstructive pulmonary disease, unspecified COPD type (ICD-10 - J44.9) No acute resp symptoms. COntinue inhalers as above. 08/02/2024 Mixed hyperlipidemia (ICD-10 - E78.2) 08/02/2024 Paroxysmal atrial fibrillation (ICD-10 - I48.0) 12/19/2023 Encounter for immunization (ICD-10 - Z23) 08/02/2024 Benign prostatic hyperplasia with lower urinary tract symptoms (ICD-10 - N40.1) 08/02/[address] (ICD-10 - Z97.8) 08/02/2024 Vasovagal syncope (ICD-10 - R55) Syncopal event in office today while having BM 15 minutes to return to baseline Found to be hypotensive Decrease beta kimberley Encourage po fluid intake Discussed sending to hospital verses palliative care. Family/patient would like to return home with Hospice Consult which has been made. Plan Of Treatment Pending Test Test Name Order Date Urinalysis 05/17/2023 Sleep Study 06/11/2024 Physical Therapy : Gait training and cor e strengthening 10/01/2022 Physical Therapy : Gait training and cor e strengthening 07/28/2023 Physical Therapy : Gait training and cor e strengthening 03/07/2024 COMPREHENSIVE METABOLIC PANEL (28835) CBC (INCLUDES DIFF/PLT) (6399) 4 Insurance Providers Payer Name Payer Address Payer Phone Subscriber Number Group Number Insured Name Patient Relationship to Insured Coverage Start Date Coverage End Date MEDIC[place] [address] [place] [address] [id number] Ti Rodríguez Self - patient is the insured [facility] [employer] [facility] [address] [place] [address] [id number] Ti Rodríguez Self - patient is the insured [employer] [address] [place] [address] [address] [place] [address] ACL Ti Rodríguez Self - patient is [...] 2023 Surgical History Surgery Date(Month/Year) heart stent 2020 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 2 Cardiac stents 04/2024 Pacemaker 07/29/2024 Scope - food Hospitalization History Reason Date(Month/Year) [facility] 09/2022 HM - Pacemaker 07/26-11/[address] 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
--- OUTSIDE RECORDS SUMMARY | 2024-09-02 19:56 | XMS_ITS | Data Portability ---
Author Organization [place] [facility]ALD[facility] ADMIN Address [address] [place] [address] Care Team Providers Care Youth Care Professional Name Role Phone SHERRY DOBSON Referring Provider [...] obtaining clearance from Dr. Howard, the patient's paper bag making machinist, due to the patient's history of heart [...] al resection of prostate (SURG) 2024 025 [id number] Not available 10:49:17 Imaging None recorded. Medication Orders dutasteride 0.5 mg capsule [address] [place] [address] Pharmacy, [address], [address], [place], [address], 11:06:24 Patient TargetsNo targets recorded. Patient InstructionsNo instructions recorded. Reason for Referral None Reported. Results Created Date Observation Date Name Description Value Unit Range Abnormal Flag Note LastModifiedBy Organization Detail LastModifiedTime Result Notes None recorded. Problems Name Problem SNOMED Code Status Onset Date Resolution Date Notes Provider Name and Address Organization Details Recorded Time Benign prostatic hyperplasi a with outflow obstructio n 639045852 Active 2024 MAYUR PUENTE MD [address], [place], [address] , [place] [facility] [place] & [place] 16:11:43 Retention of urine 944726469 Active 2024 MAYUR PUENTE MD [address], [place], [address] , [place] [facility] [place] 5 16:11:47 Lawrence hematuria 170647015 Active 2024 MAYUR PUENTE MD [address], [place], [address] , [place] [facility] [place] 5 17:37:13 Kidney disease 71642757 Active 2024 Sierra turner, [place] [facility] [place] 5 11:03:47 Hyperchole sterolemia 90586331 Active 2024 Sierra Chávez null, [place] [facility] [place] 5 11:03:56 Hypertensi ve disorder 13663776 Active 2024 Sierra Chávez null, [place] [facility] [place] & [place] 5 11:04:03 Chronic obstructiv e pulmonary disease 39709125 Active 2024 Sierra turner, [place] [facility] [place] 5 11:04:09 Denture present 603618102 Active 2024 Sierra turner, [place] [facility] [place] & [place] 5 11:04:20 Environmen gila allergy 440509596 Active 2024 Sierra Chávez null, [place] [facility] & [place] 5 11:04:29 Heart disease 60103911 Active 2024 Sierra turner, [place] [facility] & [place] 5 11:04:37 Myocardial infarction 71258098 Active 2024 Sierra turner, [place] [facility] & [place] 5 11:04:47 Lower urinary tract symptoms due to benign prostatic hypertroph y 7376644999112 1 Active 2024 MAYUR PUENTE MD [address], [place], [address] , [place] [facility] [place] 5 10:57:17 Problem Notes None recorded. Procedures Surgical History Date Name Laterality Status Provider Name and Address Organization Details Recorded Time 5 Cystoscopy-Mal e completed MD [address], [place], [address], [place] [facility] [place] 06/13/2024 17:35:45 5 Kidd Catheter Insertion completed Felisha Ulloa [place] [facility] [place] 06/13/2024 14:25:05 5 Cystoscopy-Mal e completed MD [address], [place], [address], [place] [facility] [place] 04/25/2024 10:56:51 5 TRUS completed MD [address], [place], [address], [place] [facility] [place] 04/25/2024 10:57:12 Imaging Results None recorded. Procedure Notes Documentation Provider Name and Address Organization Details Recorded Time Consult History and Physical [facility] Name Ti Rodríguez Date of Service 0743 [id number] (M) Attending ELVIA Chung Admitted [id number] Discharged Primary MARISA MACIAS - Chief Complaint Gross hematuria History of Present [...] (FLONASE) 50 MCG/ACT 1 SPR NASAL DAILY 1 of 3 Consult History and Physical [facility] Name Ti Rodríguez Date of Service 0743 [id number] (M) Attending ELVIA Chung Admitted [id number] Discharged Gokul MACIAS - famotidine (PEPCID) 20 MG PO DAILY ENTRESTO 24-26 MG 1 TAB PO BID DULoxetine (CYMBALTA) 60 MG PO DAILY baby aspirin (DEVORAH) 81 MG PO DAILY TRELEGY ELLIPTA 100-62.5-25 MCG/ACT 1 INH INHALED RTDAILY NOZIN NASAL INHALATION THERAPIST POPSWAB 1 EA NASAL BID APPLY TO EACH NOSTRIL melatonin 5 MG PO BEDTIMEPRN for SLEEP oxyCODONE (ROXICODONE) 5 MG PO Q4HPRN for MODERATE PAIN 4-6 PAIN SCALE acetaminophen (TYLENOL) 1000 MG PO Q6HPRN for MILD PAIN 1-3 PAIN SCALE, TEMP > 100.4 sodium chloride 0.9% FLUSH 10 ML IV [...] DUONEB 0.5-2.5 MG/3 ML 3 ML INHALED [id number] for SHORTNESS OF BREATH Review of Systems [...] GLUC 67 (L) BUN 11 CREAT 0.8 2 of 3 Consult History and Physical [facility] Name Ti Rodríguez Date of Service 0743 [id number] (M) Attending ELVIA Chung Admitted [id number] Discharged Primary MARISA MACIAS - GFR 89 OSMO ZULEYMA 291 TP 5.1 (L) ALB 2.3 (L) [...] 0.1 BASO# 0.0 IG# 0.04 NRBC# 0.00 MANDIFF No 1546 Chemistry NA 139 K 3.2 (L) CHLORIDE 102 CO2 26.1 AGAP 14.1 GLUC 72 BUN 13 CREAT 1.0 GFR 76 OSMO ZULEYMA 288 TP 6.4 ALB 2.9 (L) GLOB 3.5 ALB/GLOB 0.8 CALCIUM 9.0 BILI TOT 0.90 AST 11 ALT 19 ALP 127 (H) 154 Hematology WBC 9.3 RBCS 4.4 (L) HGB 13.4 (L) HCT 42.0 MCV 95.2 MCH 30.4 MCHC 31.9 (L) RDW 17.5 (H) PLT S 192 MPV 10.1 (H) NEUT% 70.4 (H) LYMPH% 20.5 MONO% 8.0 EOS% 0.4 (L) BASO% 0.1 (L) IG% 0.6 NRBC% 0.0 NEUT# 6.5 (H) LYMPH# 1.9 MONO# 0.7 EOS# 0.0 BASO# 0.0 IG# 0.06 NRBC# 0.00 MANDIFF No 1546 Coagulation PT 11.6 (H) PTT [...] CBI. Electronically signed by SHAQUILLE OLIVEROS on 4139 3 of 3 CC'ed Logic: Ordering Provider: SHAQUILLE MERCHANT Consulting Provider: SHAQUILLE Andrews, GLYCERIN OPERATOR, [address] [facility] [address], [place], [address], [facility] & [place] 07/11/2024 08:37:00 Medical Equipment None Reported. Allergies No known [...] e) 50 mcg/actuati on nasal spray,suspe nsion Era 1 spray every day by intranasa l route. active Not Available Not Available No t Available Trelegy Ellipta 100 mcg-62.5 mcg-25 mcg powder for inhalation active Not Available Not Available N ot Available Vitals Date Recorded Body height Body mass index (BMI) Body weight Oxygen saturation Oxygen saturation in Arterial blood by Pulse oximetry Heart rate Systolic And Diastolic Provider Name and Address Organization Details Last Updated DateTime 5 165.1 cm 24.6 kg/m2 34784.6 7 g 96 % 96 % 82 /min 160/75 mm[Hg] [facility] [place] 5 14:35:00 Social History None recorded. Functional [...] SNOMED-CT Code Diagnosis ICD10 Code Diagnosis Note [id number] MAYUR PUENTE MD [facility] Urology-1 00 [address] [facility] [address] [place] [address] 04/18/2024 09:52:42 04/18/2024 10:47:45 Benign prostatic hyperplasia with outflow obstruction 806712226 N40.1 I have instructed the patient to discontinu e oxybutynin immediatel y. We did not perform voiding trial today as this would likely be unsuccessf ul. He will continue tamsulosin and follow up next week for voiding trial with cystoscopy and prostate ultrasound . Retention of urine 91677 4002 R33.9 See above. We will attempt SPARE HAND CARDING test at his follow up appointmen t Lawrence hematuria 80525783 5 R31.0 likely secondary to Kidd trauma, however, given smoking history we will complete lower tract evaluation with cystoscopy . [id number] MAYUR PUENTE MD [facility] [address] [facility] [address] [place] [address] 04/25/2024 10:26:05 04/25/2024 11:03:18 Lower urinary tract symptoms due to benign prostatic hypertrophy 5141657809 9101 N40.1 Patient has declined Kidd replacemen [...] verbalized his understand ing. Retention of urine 81633 4002 R33.9 Patient successful ly completed voiding trial today and has declined further catheteriz ation. He will follow up in 6 weeks for PVR check. [id number] MAYUR PUENTE MD [facility] 00 [address] [facility] [address] [place] [address] 05/16/2024 14:23:47 05/16/2024 16:25:31 Benign prostatic hyperplasia with outflow obstruction 227757108 N40.1 N13.8 I have instructed the patient to discontinu e oxybutynin immediatel y. We did not perform voiding trial today as this would likely be unsuccessf ul. He will continue tamsulosin and follow up next week for voiding trial with cystoscopy and prostate ultrasound . Retention of urine 28212 4002 R33.9 Patient successful ly completed voiding trial today and has declined further catheteriz ation. He will follow up in 6 weeks for PVR check. [id number] MAYUR PUENTE MD [facility] Urology-1 00 [address] [place] [address] 06/13/2024 13:44:36 06/13/2024 14:21:15 Retention of urine 847830714 R33.9 will send urine for PCR [id number] MAYUR PUENTE MD [facility]- 00 [address] [place] [address] 06/13/2024 16:21:44 06/13/2024 17:10:35 Lawrence hematuria 595772660 R31.0 Flexible cystoscopy performed in office today showed bleeding from the prostate but no active bleeding or formed blood clots within the bladder lumen. A new 18 [place] catheter was placed over guidewire with 10 cc of sterile water in the balloon. This was irrigated to clear yellow urine. Retention of urine 51021 4002 R33.9 Patient will continue catheteriz ation for now. He was tentativel y scheduled for Transureth ral resection of the prostate in the upcoming months pending cardiac clearance. [id number] MAYUR PUENTE MD [facility] [address] [address] 07/08/2024 13:18:24 07/08/2024 15:12:42 Lawrence hematuria 400370328 R31.0 Tried to irrigate Kidd cath; however, [...] ID Guarantor Name 04/18/2024 2 [place] [id number] Ti Stringeron [id number] Ti Rodríguez 07/25/2024 1 [place] Tiprice SerranoRodríguez [id number] Ti Rodríguez 07/25/2024 2 [place] [id number] Tiprice SerranoRodríguez [id number] Ti Rodríguez Notes Date Note Type Note Provider Name and Address Organization Details Recorded Time 04/25/2024 text/html 04/25/24 09-mrth-hlx-male present to clinic for voiding trial with cystoscopy and prostate ultrasound. Voiding trial was attempted today and patient began voiding after only 60 cc was placed in the bladder. He remains on tamsulosin and reports that he discontinued the oxybutynin as instructed at his 1st visit. 04/18/25802019-ijyi-xpx -male present to clinic as new patient for ER ([facility]) visit on 04/08/24 decrease urine volume [...] smoker 5-7 cigarettes per day. 04/08/24 CT/w ([facility]) kidneys and ureters: multiple Bosniack 1 renal cystic lesions defined as homogeneous and fluid density (-9 to 20 HU), no septation or calcifications, having rangel smooth and thin, largest cyst measures 1.1cm, no hydronephrosis. Urinary bladder unremarkable Enlarge prostate 6.8x4.9x6.7cm Cr 0.90, GFR 81, Hgb 15.7, Hct 46.7004/08/24 UA pH 6.0, SG >=1.030, Blood-trace, 4 Cr 1.15, GFR 64, Hgb 16.3, Hct 47.80346 PSA 9.4 MAYUR PUENTE MD [address] [facility] [address], [place], [address], [facility] & [place] 04/25/2024 10:59:03 05/16/2024 text/html 05/16/24 CC: 72-yfqa-wug-male returns to clinic for follow up ER ([facility]) visit on 04/29/24 for increased abdominal [...] leakage. The patient has not seen a paper bag making machinist in years but has been managed by Renea Pagan with Dr. Loo in [facility]. 04/25/24 49-lman-ctd-male present to clinic for voiding trial with cystoscopy and prostate ultrasound. Voiding trial was attempted today and patient began voiding after only 60 cc was placed in the bladder.He remains on tamsulosin and reports that he discontinued the oxybutynin as instructed at his 1st visit. 04/18/25800587-avsg-ine -male present to clinic as new patient for ER ([facility]) visit on 04/08/24 decrease urine volume [...] mucus 3+04/25/24 TRUS volume 93.4 cc04/08/24 CT/w ([facility]) kidneys and ureters: multiple Bosniack 1 renal cystic lesions defined as homogeneous and fluid density (-9 to 20 HU), no septation or calcifications, having rangel smooth and thin, largest cyst measures 1.1cm, no hydronephrosis. Urinary bladder unremarkable Enlarge prostate 6.8x4.9x6.7cm Cr 0.90, GFR 81, Hgb 15.7, Hct 46.7004/08/24 UA pH 6.0, SG >=1.030, Blood-trace, 4 Cr 1.15, GFR 64, Hgb 16.3, Hct 47.43619 PSA 9.4 MAYUR PUENTE MD [address], [place], [address], [place] [facility] [place] 05/16/2024 16:13:17 06/13/2024 text/html 06/13/24 83-year-old male presents as a work-in for gross hematuria. Kidd catheter was exchanged earlier today and initially drained clear, however, he returned with gross hematuria and clot passage. Attempts were made by nurse practitioner to replace the catheter which were unsuccessful.------ 0 05/16/24 CC: 72-cmmu-vua-male returns to clinic for follow up ER ([facility]) visit on 04/29/24 for increased abdominal [...] leakage. The patient has not seen a paper bag making machinist in years but has been managed by Renea Pagan with Dr. Loo in [facility]. 04/25/24 32-oigg-tbe-male present to clinic for voiding trial with cystoscopy and prostate ultrasound. Voiding trial was attempted today and patient began voiding after only 60 cc was placed in the bladder.He remains on tamsulosin and reports that he discontinued the oxybutynin as instructed at his 1st visit. 04/18/25808383-yxrc-qqy -male present to clinic as new patient for ER ([facility]) visit on 04/08/24 decrease urine volume [...] mucus 3+04/25/24 TRUS volume 93.4 cc04/08/24 CT/w ([facility]) kidneys and ureters: multiple Bosniack 1 renal cystic lesions defined as homogeneous and fluid density (-9 to 20 HU), no septation or calcifications, having rangel smooth and thin, largest cyst measures 1.1cm, no hydronephrosis. Urinary bladder unremarkable Enlarge prostate 6.8x4.9x6.7cm Cr 0.90, GFR 81, Hgb 15.7, Hct 46.7004/08/24 UA pH 6.0, SG >=1.030, Blood-trace, 4 Cr 1.15, GFR 64, Hgb 16.3, Hct 47.53263 PSA 9.4 MAYUR PUENTE MD [address], [place], [address], [facility] - [place] & [place] 06/13/2024 17:41:46 07/08/2024 text/html 07/08/2024 83 yowm [...] catheter which were unsuccessful.------ 0 05/16/24 CC: 45-wryh-twu-male returns to clinic for follow up ER ([facility]) visit on 04/29/24 for increased abdominal [...] leakage. The patient has not seen a paper bag making machinist in years but has been managed by Renea Pagan with Dr. Loo in [facility]. 04/25/24 89-unpm-sdb-male present to clinic for voiding trial with cystoscopy and prostate ultrasound. Voiding trial was attempted today and patient began voiding after only 60 cc was placed in the bladder.He remains on tamsulosin and reports that he discontinued the oxybutynin as instructed at his 1st visit. 04/18/25804271-ejea-dte -male present to clinic as new patient for ER ([facility]) visit on 04/08/24 decrease urine volume [...] mucus 3+04/25/24 TRUS volume 93.4 cc04/08/24 CT/w ([facility]) kidneys and ureters: multiple Bosniack 1 renal cystic lesions defined as homogeneous and fluid density (-9 to 20 HU), no septation or calcifications, having rangel smooth and thin, largest cyst measures 1.1cm, no hydronephrosis. Urinary bladder unremarkable Enlarge prostate 6.8x4.9x6.7cm Cr 0.90, GFR 81, Hgb 15.7, Hct 46.7004/08/24 UA pH 6.0, SG >=1.030, Blood-trace, 4 Cr 1.15, GFR 64, Hgb 16.3, Hct 47.03731 PSA 9.4 Lizzie Andrews, GLYCERIN OPERATOR, [address], [place], [address], [place] [facility] [place] 07/08/2024 14:17:41
--- OUTSIDE RECORDS SUMMARY | 2024-09-02 19:56 | XMS_ITS | Continuity of Care Document ---
Author Organization [facility] Urology-100 Address [address] [facility] [address] [place] [address] Care Team Providers Care Esol Teacher Name Role Phone SHERRY DOBSON Referring Provider [...] prostatic hyperplasi a with outflow obstructio n 379492893 Active 2024 [facility] [address] [facility] & [place] 5 16:11:43 Retention of urine 748441006 Active [address] [facility] [place] [address] [facility] & [place] 5 16:11:47 Lawrence hematuria 950061951 Active [address] [facility] [place] [address] [facility] & [place] 5 17:37:13 Kidney disease 43881590 Active 2024 Sierra Chávez [facility] & [place] 5 11:03:47 Hyperchole sterolemia 12486633 Active 2024 Sierra turner, [place] [facility] [place] 5 11:03:56 Hypertensi ve disorder 27353743 Active 2024 Sierra Chávez null, [place] [facility] [place] 5 11:04:03 Chronic obstructiv e pulmonary disease 72980327 Active 2024 Sierra Chávez null[place] [facility] [place] 5 11:04:09 Denture present 326504313 Active 2024 Sierra Chávez null, [place] [facility] [place] 5 11:04:20 Environmen gila allergy 057702176 Active 2024 Sierra Chávez null[place] [facility] [place] 5 11:04:29 Heart disease 96116325 Active 2024 Sierra Chávez null[place] [facility] [place] 5 11:04:37 Myocardial infarction 12664974 Active 2024 Sierra Chávez null, [place] [facility] [place] & [place] 5 11:04:47 Lower urinary tract symptoms due to benign prostatic hypertroph y 1039258641518 1 Active [address], [place], [address] , [place] [facility] [place] 5 10:57:17 Problem Notes None recorded. Procedures Surgical History Date Name Laterality Status Provider Name and Address Organization Details Recorded Time 5 Cystoscopy-Mal e completed MD [address], [place], [address], [place] [facility] [place] 06/13/2024 17:35:45 5 Kidd Catheter Insertion completed Felisha Ulloa [place] [facility] [place] & [place] 06/13/2024 14:25:05 5 Cystoscopy-Mal e completed MAYUR PUENTE MD [address], [place], [address], [facility] & [place] 04/25/2024 10:56:51 5 TRUS completed MD [address], [place], [address], [facility] & [place] 04/25/2024 10:57:12 Imaging Results [...] e) 50 mcg/actuati on nasal spray,suspe nsion [place] 1 spray every day by intranasa l [...] SNOMED-CT Code Diagnosis ICD10 Code Diagnosis Note [id number] MAYUR PUENTE MD [facility] Urology-1 00 [address] [facility] [address] [place] [address] 06/13/2024 13:44:36 06/13/2024 14:21:15 Retention of urine 768941296 R33.9 will send urine for PCR [id number] MAYUR PUENTE MD [facility] Urology-1 00 [address] [facility] [address] [place] [address] 06/13/2024 16:21:44 06/13/2024 17:10:35 Lawrence hematuria 253888275 R31.0 Flexible cystoscopy performed in office today showed bleeding from the prostate but no active bleeding or formed blood clots within the bladder lumen. A new 18 Greenlandic catheter was placed over guidewire with 10 cc of sterile water in the balloon. This was irrigated to clear yellow urine. Retention of urine 64405 4002 R33.9 Patient will continue catheteriz ation for now. He was tentativel y scheduled for Transureth ral resection of the prostate in the upcoming months pending cardiac clearance. [id number] MAYUR PUENTE MD [facility] Urology-[address] [place] [address] 07/08/2024 13:18:24 07/08/2024 15:12:42 Lawrence hematuria 378363291 R31.0 Tried to irrigate Kidd cath; however, [...] Calderon Member ID Guarantor Name 07/08/2024 1 [place] Ti Rodríguez [id number] Ti Rodríguez 07/08/2024 2 [place] [id number] Ti Rodríguez [id number] Ti Rodríguez Notes Date Note Type [...] catheter which were unsuccessful.------ 0 05/16/24 CC: 87-jcfl-tef-male returns to clinic for follow up ER ([facility]) visit on 04/29/24 for increased abdominal [...] leakage. The patient has not seen a annealing oven operator in years but has been managed by Renea Pagan with Dr. Loo in [facility]. 04/25/24 13-inbm-ipm-male present to clinic for voiding trial with cystoscopy and prostate ultrasound. Voiding trial was attempted today and patient began voiding after only 60 cc was placed in the bladder.He remains on tamsulosin and reports that he discontinued the oxybutynin as instructed at his 1st visit. 04/18/25807048-amgz-ohs -male present to clinic as new patient for ER ([facility]) visit on 04/08/24 decrease urine volume [...] mucus 3+04/25/24 TRUS volume 93.4 cc04/08/24 CT/w ([facility]) kidneys and ureters: multiple Bosniack 1 renal cystic lesions defined as homogeneous and fluid density (-9 to 20 HU), no septation or calcifications, having rangel smooth and thin, largest cyst measures 1.1cm, no hydronephrosis. Urinary bladder unremarkable Enlarge prostate 6.8x4.9x6.7cm Cr 0.90, GFR 81, Hgb 15.7, Hct 46.7004/08/24 UA pH 6.0, SG >=1.030, Blood-trace, 4 Cr 1.15, GFR 64, Hgb 16.3, Hct 47.74604 PSA 9.4 Lizzie Andrews, CELSO, [address], [place], [address], [facility] [place] & [place] 07/08/2024 14:17:41
--- OUTSIDE RECORDS SUMMARY | 2024-09-02 19:56 | XMS_ITS | Clinical Summary ---
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 No 05/23/2023 CAGE ASSESSMENT Answer [...] drink first t hugo in the morning (EYE-GASOLINE POWER SHOVEL OPERATOR) to steady your nerves or to get [...] or (1 - 1-dose 75+ series) 2017 [id number] Vaccine ( season) 2023 10/14/2022, 12/27/2021, 08/30/2021, Additional history exists [facility]-Depression Screening 03/17/2024 03/17/2023 [facility]-Influenza Vaccine (#1) 2024 11/07/2022, [facility]-DTaP,Tdap,and Td Vaccines (2 - Td or [...] this topic Medical Devices Implanted Type Area Prepared Foods Associate Device Identifier Shelf Expiration Date Model / Serial / Lot Graft Excluder Trnk Ipsilat 15f 14.5cm/12mm/23mm - [id number] Implanted:Qty: 1 on 01/17/2023 by Jamey Ann MD at [facility] [employer]-[id number] 4 10/23/2025 [id number] / [id number] / [id number] Coil Vascular 5els0iq - [id number] Implanted:Qty: 1 on 01/17/2023 by Jamey Ann MD at [facility]-[id number] 09/20/2027 [id number] / / [id number] Coil Vascular 3eya6et - [id number] Implanted:Qty: 1 on 01/17/2023 by Jamey nAn MD at [facility]-[id number] 09/20/2027 [id number] / / [id number] Component Contralateral Leg 12mm 12cm - [id number] Implanted:Qty: 1 on 01/17/2023 by Jamey Ann MD at [facility] [employer]-[id number] 4 09/28/2025 [id number] / [id number] / [id number] Component Contralateral Leg 12mm 10cm - [id number] Implanted:Qty: 1 on 01/17/2023 by Jamey Ann MD at [facility] [employer]-[id number] 4 08/27/2025 [id number] / [id number] / [id number] Stent Graft Iliac [id number] Lviabahnbx - [id number] Implanted:Qty: 1 on 01/17/2023 by Jamey Ann MD at [facility] [employer]-[id number] 4 10/30/2025 [id number] / [id number] / [id number] Vascuguard 8 X 8 - [id number] Implanted:Qty: 1 on 01/17/2023 by Jamey Ann MD at [facility] [employer]-[id number] 7 08/24/2023 [id number] / / [id number] Vascuguard 8 X 8 - [id number] Implanted:Qty: 1 on 01/17/2023 by Jamey Ann MD at [facility] Right: [employer]-[id number] 7 08/24/2023 [id number] / / [id number] Additional Health Concerns Infection Onset Date 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 Yes Care Teams Rubber Covering Machine Operator Relationship Specialty Start Date End Date Stefania Gilliland APRN [address] [facility] [address] [place] [address] PCP - General 01/20/23
--- NOTE | 2024-09-02 20:06 | XR_ITS ---
PROCEDURE INFORMATION: Exam: XR Chest Exam date and time: 09/02/2024 8:16 PM Age: 84 years old Clinical indication: Shortness of breath; Additional info: Short of breath TECHNIQUE: Imaging protocol: Radiologic exam of the chest. Views: 1 view. Total images: 1 COMPARISON: CR XR CHEST PORTABLE 07/29/2024 5:38 PM FINDINGS: Tubes, catheters and devices: Left subclavian cardiac pacemaker. Lungs: Stable mild bibasilar interstitial coarsening. No acute airspace consolidation or vascular congestion. No pulmonary edema. Pleural spaces: Unremarkable. No pleural effusion. No pneumothorax. Heart/Mediastinum: Unremarkable. No cardiomegaly. No mediastinal widening or hilar enlargement. Vasculature: Atherosclerotic aortic arch. Bones/joints: Status post median sternotomy. Mild degenerative changes thoracic spine, bilateral shoulders and AC joints. Stable chest wall structures. Other findings: Lordotic positioning. IMPRESSION: 1. No radiographically acute cardiopulmonary process. 2. Stable chronic findings.
--- NOTE | 2024-09-02 20:17 | ED_ITS ---
<Statement entered by Sary Obrien DO - 09/03/24 00:00> I was consulted by the PALMIRA, and we discussed the complexity of the problems being addressed. I approved the treatment and management plan for this patient's care in the emergency department, thus performing a substantive portion of the medical decision making. Patient has some nausea and urinary frequency, and family notes concern for UTI because of little bit of confusion at home. On my assessment of the patient, he states he is feeling okay and is ready to go home. Labs demonstrate mild leukocytosis, urine is concerning for UTI with bacteria and white blood cells noted. Will treat with oral Levaquin and Zofran as needed for nausea. Patient was discharged on home hospice with strict return precautions and instruction for close outpatient follow-up Sary Obrien DO Discharge Plan Disposition Chief Complaint: Anxiety Prescriptions Prescriptions: No Action Entresto 24-26 mg tablet 1 tab PO BID Qty: 60 5RF memantine 5 mg tablet 5 mg PO BID trazodone 100 mg tablet 100 mg PO HS lansoprazole 30 mg capsule,delayed release(DR/EC) 30 mg PO DAILY levocetirizine 5 mg tablet 5 mg PO DAILY Trelegy Ellipta 100-62.5-25 mcg Blister With Device 1 inh INHALATION DAILY famotidine 20 mg tablet 20 mg PO DAILY duloxetine 60 mg capsule,delayed release(DR/EC) 60 mg PO DAILY Eliquis 5 mg tablet 5 mg PO BID tamsulosin 0.4 mg capsule 0.4 mg PO HS fluticasone propionate 50 mcg/actuation spray,suspension 1 spray INTRANASAL DAILY Rx Instructions: 1 spray in both nostrils clopidogrel 75 mg Tablet 75 mg PO DAILY 30 Days Qty: 30 0RF spironolactone 25 mg Tablet 25 mg PO DAILY 30 Days Qty: 30 0RF Jardiance 10 mg Tablet 10 mg PO DAILY 30 Days Qty: 30 0RF oxybutynin chloride 5 mg tablet 5 mg PO BID PRN (Reason: bladder spasms) Qty: 60 0RF amiodarone 200 mg Tablet 400 mg PO BID 30 Days Qty: 120 0RF hydrocodone-acetaminophen 5-325 mg Tablet 1 tab PO Q6HP PRN (Reason: Mild To Moderate Pain (1-6)) 3 Days Qty: 11 0RF levofloxacin 750 mg tablet 750 mg PO DAILY Qty: 5 0RF Rx Instructions: dose due this evening 6/10/25 metoprolol tartrate 50 mg Tablet 50 mg PO BID 30 Days Qty: 60 0RF dutasteride 0.5 mg Capsule 0.5 mg PO DAILY atorvastatin 80 mg tablet 80 mg PO HS Referrals Follow up/Referrals: Stefania Pagan APRN [Primary Care Provider, Medical] - See instructions Print Language Print Language: Setswana Discharge ED Provider: Sary Obrien General Adult HPI General Chief complaint: Anxiety Stated complaint: fever Time Seen by Provider: 09/02/24 19:59 Mode of Arrival: EMS Source of Information: Patient and EMS Description of Symptoms (Recalled from ER Triage Doc. by RN): Pt states he fot real nervous at home Vomited x1 then nausea resolved. Pt states he was given ativan prior to transport and now feels slightly better. 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 Pt states he wants to remain a DNR History of Present Illness HPI narrative: 84-year-old male presents to the ED via EMS after he became nervous at home and had nausea and vomiting that has since resolved. He tells me that he has been having vomiting for couple days. He ate chili for dinner and says it did not taste right. He did take Ativan before he got on the ambulance and feels a little better now. Patient is on hospice for heart disease. He is a DNR. He says that he has been coughing and has productive sputum no fevers. He has frequency and urine. Related Data Home Medications ?Medication ?Instructions ?Recorded ?Confirmed lansoprazole 30 mg capsule,delayed 30 mg PO DAILY 10/1207/27/24 release levocetirizine 5 mg tablet 5 mg PO DAILY 09/27/2209/13 trazodone 100 mg tablet 100 mg PO HS 09/27/22 fluticasone fur. 100 mcg-umeclid 1 inh inhalation DL Y 01/29/23 07/27/24 62.5 mcg-vilant 25 mcg inhalat.powder (Trelegy Ellipta) apixaban 5 mg tablet (Eliquis) 5 mg PO BID 03/28/24 duloxetine 60 mg capsule,delayed 60 mg PO DAILY 07/27/24 release famotidine 20 mg tablet 20 mg PO DAILY 03/28/24 0609/13 fluticasone propionate 50 1 spray intranasal DAILY 08/1407/27/24 mcg/actuation nasal spray,suspension tamsulosin 0.4 mg capsule 0.4 mg PO HS 03/28/24 dutasteride 0.5 mg capsule 0.5 mg PO DAILY 04/29/24 atorvastatin 80 mg tablet 80 mg PO HS 06/29/24 5 memantine 5 mg tablet 5 mg PO BID 07/03/24 5 Previous Rx's ?Medication ?Instructions ?Recorded clopidogrel 75 mg tablet 75 mg PO DAILY 30 days #30 t abs 05/21/24 empagliflozin 10 mg tablet 10 mg PO DAILY 30 days #30 tabs 05/21/24 (Jardiance) spironolactone 25 mg tablet 25 mg PO DAILY 30 days #30 tabs 05/21/24 sacubitril 24 mg-valsartan 26 mg 1 tab PO BID #60 tabs 05/27/24 tablet (Entresto) Held on 07/30/24. Instructions: hold until follow-up with cariology oxybutynin chloride 5 mg tablet 5 mg PO BID PRN bladde r spasms #60 06/01/24 tabs amiodarone 200 mg tablet 400 mg (2 x 200 mg) PO BID 3 0 days 07/30/24 #120 tabs hydrocodone 5 mg-acetaminophen 325 1 tab PO Q6HP PRN M ild To Moderate 07/30/24 mg tablet Pain (1-6) 3 days #11 tabs levofloxacin 750 mg tablet 750 mg PO DAILY #5 tabs 12/14 metoprolol tartrate 50 mg tablet 50 mg PO BID 30 days #60 tabs 07/30/24 Allergies Allergy/AdvReac Type Severity Reaction Status Date / Time No Known Allergies Allergy Verified 07/03/24 10:33 [facility] Disclaimer: The information contained in this section may have been updated after the patient was seen, as this information can be updated by other users. Medical History Hemoptysis Pneumonia Atypical angina Subdural hemorrhage Swelling of lower leg Dehiscence of operative wound Obesity (BMI 30.0-34.9) Stenosis of carotid artery Left carotid bruit BPH without obstruction/lower urinary tract symptoms BPH (benign prostatic hyperplasia) CALEB (renal artery stenosis) HFrEF (heart failure with reduced ejection fraction) CHF (congestive heart failure) Dyspnea HLD (hyperlipidemia) HTN (hypertension) CAD (coronary artery disease) Abdominal aortic aneurysm CKD (chronic kidney disease) Atrial fibrillation Surgical History H/O fasciotomy Family History Other No significant family history Social History Smoking Status: Current every day smoker tobacco type: cigarettes second hand exposure: No alcohol intake: never substance use type: denies use current occupational status: retired Travel in the last 8 weeks?: Inside the [facility] household members: spouse housing: house caffeine: Yes Have you lived/traveled outside US in past 30 days?: No Contact w/someone who lives/traveled outside US past 30 days?: No Exposure to someone with infectious disease in past 14 days?: No Do you have a fever (greater than 100.4 F or 38 C)?: No Have you tested positive for COVID-19?: No Exposed to someone with COVID-19 in past 14 days?: No Do you have a sore throat?: No Do you have a cough?: No Do you have any weakness?: No Do you have any diarrhea?: No Are you experiencing any unusual bleeding?: No Do you have any muscle aches/pain?: No Do you have any abdominal pain?: No Are you experiencing loss of taste or smell?: No Other Medical History Have you received the Flu Vaccine for this season: No Have you received the Pneumonia Vaccine: No ROS Obtained: Yes Systems reviewed as appropriate & no additional complaints except as documented Constitutional Constitutional: Reports as per HPI Physical Exam General General appearance: alert and anxious Head Head exam: normocephalic Eye Eye exam: Present normal appearance, PERRL and EOMI ENT ENT exam: Present normal oropharynx and mucous membranes moist Neck Neck exam: Present full ROM and trachea midline Respiratory Respiratory exam: Present wheezes Cardiovascular Cardiovascular exam: Present regular rate, normal rhythm, normal heart sounds, +S1 and +S2 Abdominal Exam Abdominal exam: Present soft and normal bowel sounds Extremities Exam Extremities exam: Present normal inspection, full ROM and normal capillary refill Neurological Exam Neurological exam: Present alert, oriented X3 and normal gait Skin Skin exam: Present warm, dry and intact Medical Decision Making Medical Records Medical records reviewed: Yes I reviewed the patient's medical records. Screening: Per USPSTF and CDC recommendations, given the prevalence of disease in our region, it is our hospital?s policy to screen for HIV and viral Hepatitis for all patients aged 18 and over and those with ongoing risk factors. Anjel Inquiry Pt receiving controlled substance: No Anjel was queried for this patient: No Vital Signs: 09/02/24 19:49 09/02/24 20:30 09/02/24 20:45 Temperature 99.1 F Temperature Source Oral Pulse Rate 70 Pulse Rate [Right Brachial] 70 Respiratory Rate 24 Blood Pressure 129/52 L Blood Pressure [Right Arm] 168/59 H Blood Pressure Mean 77 Blood Pressure Mean [Right Arm] 95 Blood Pressure Source [Right Arm] Automatic Cuff Blood Pressure Position [Right Arm] Sitting 02 Sat by Pulse Oximetry 90 L 95 Oxygen Delivery Method Nasal Cannula Oxygen Flow Rate (LPM) 2 Lab Data Lab Results 09/02/24 20:30: WBC 11.0 H, RBC 4.19 L, Hgb 13.0 L, Hct 42.1, MCV 100.5 H, MCH 31.0, MCHC 30.9 L, RDW 18.5 H, Plt Count 208, MPV 10.0, Neut % (Auto) 88.4 H, L ymph % (Auto) 7.0 L, Stanton % (Auto) 3.9, Eos % (Auto) 0.1, Baso % (Auto) 0.2, N eut # (Auto) 9.7 H, Lymph # (Auto) 0.8, Stanton # (Auto) 0.4, Eos # (Auto) 0.0, Baso # (Auto) 0.0, Sodium 139, Potassium 4.2, Chloride 103, Carbon Dioxide 26, Anion Gap 14.2, BUN 11, Creatinine 0.80, Estimated Creat Clear 53, Estimated GFR 93, Est GFR ( Amer) 112, Glucose 149 H, Calcium 9.2, Magnesium 1.9, Total Bilirubin 1.1, AST 31, ALT 16, Alkaline Phosphatase 103, Total Protein 6.7, Albumin 3.9, Globulin 2.8, Albumin/Globulin Ratio 1.4, Lipase 22 L 09/02/24 20:30 09/02/24 20:30 Orders (Tests/Meds): ED MEDICATIONS Generic Name Dose Route Start Last Admin Trade Name Freq PRN Reason Stop Dose Admin Sodium Chloride 1,000 mls @ 500 mls/hr 09/02/24 20:06 09/02/24 20:20 Sod Chlor 0.9% 1000ml Bag IV 09/02/24 22:05 500 mls/hr .Q2H ONE Administration Sodium Chloride 8 ml 09/02/24 20:06 09/02/24 20:20 Sodium Chloride 0.9% 10ml Vial IV 10/02/24 20:05 8 ml NEEDED PRN Administration dilute pepcid Discontinued Medications Generic Name Dose Route Start Last Admin Trade Name Freq PRN Reason Stop Dose Admin Famotidine 20 mg 09/02/24 20:06 09/02/24 20:20 Famotidine 20mg/2ml Vial IV 09/02/24 20:07 20 mg ONCE ONE Administration Ondansetron HCl 4 mg 09/02/24 20:06 09/02/24 20:20 Ondansetron 4mg/2ml Vial IV 09/02/24 20:07 4 mg ONCE ONE Administration ORDERS Category Date Time Status Chest XR -- portable [XR chest portable] Stat Exams 09/02/24 20:06 Completed CBC [Complete Blood Count Auto Diff] Stat Lab 09/02/24 20:30 Completed Comprehensive Metabolic Panel Stat Lab 09/02/24 20:30 Completed Lipase Stat Lab 09/02/24 20:30 Completed Magnesium Stat Lab 09/02/24 20:30 Completed Urinalysis and Microscopic Stat Lab 09/02/24 20:07 Ordered Medical Decision Narrative: patient is a 84-year-old male presenting to the emergency department for evaluation of nausea, vomiting, cough and anxiety.. Patient is hemodynamically stable and nontoxic-appearing upon arrival, afebrile. Differential diagnosis includes viral illness, nausea, COPD exacerbation, CHF exacerbation, hypoxia, among others. Workup will be conducted with hematologic labs, specific imaging. Initial inventions include crystalloid bolus, nausea meds. Initial workup reviewed by [facility] hematologic labs are remarkable for slightly elevated white count but otherwise normal lab work. Still waiting on imaging reports and urine. Dr. Obrien will be taking over her care. I have discussed this with Dr. Obrien. Critical Care Critical Care Time Critical Care Time: No
[2024-09-02] MEDS: 0.9 % SODIUM CHLORIDE 1000ML 1,000 ML 500 ML IV (20:20)
[2024-09-02] MEDS: FAMOTIDINE 20MG/2ML VIAL 20 MG IV (20:20)
[2024-09-02] MEDS: ONDANSETRON 4MG/2ML VIAL 4 MG IV (20:20)
[2024-09-02] MEDS: SODIUM CHLORIDE 0.9% 10ML VIAL 8 ML IV (20:20)
[2024-09-02 20:35] LABS: Hematocrit 42.1 % (42.0-52.0); Hemoglobin 13.0 g/dL (14.1-18.0); Immature Granulocytes % 0.4 %; Mean Corpuscular HGB Conc 30.9 g/dL (31.8-35.4); Mean Corpuscular Hemoglobin 31.0 pg (27.0-31.2); Mean Corpuscular Volume 100.5 fl (80-94); Nucleated Red Blood Cells % 0 %; Platelet Count 208 K/mm3 (142-424); Red Blood Count 4.19 M/mm3 (4.60-6.20); Red Cell Distribution Width-SD 68.0 fL; White Blood Count 11.0 K/mm3 (4.8-10.8)
[2024-09-02 20:47] LABS: Alanine Aminotransferase 16 U/L (12-78); Albumin Level 3.9 g/dl (3.5-5.0); Albumin/Globulin Ratio 1.4 (1.1-1.8); Alkaline Phosphatase 103 U/L (38-126); Anion Gap 14.2 mEq/L (5-15); Aspartate Amino Transferase 31 U/L (17-59); Bilirubin,Total 1.1 mg/dl (0.2-1.3); Blood Urea Nitrogen 11 mg/dl (9-20); Calcium 9.2 mg/dl (8.4-10.2); Carbon Dioxide 26 mmol/L (22.0-30.0); Chloride 103 mmol/L (98-107); Creatinine Clearance Estimated 53 mL/min (50-200); Creatinine,Serum 0.80 mg/dl (0.66-1.25); Estimated Glomerular Filt Rate 93 ml/min (>60); GFR (African American) 112 ML/MIN (>60); Globulin 2.8 g/dL (1.3-3.2); Glucose 149 mg/dl (74-100); Lipase 22 U/L (23-300); Magnesium 1.9 mg/dl (1.6-2.3); Potassium 4.2 mmoL/L (3.5-5.1); Sodium 139 mmol/L (136-145); Total Protein,Serum 6.7 g/dl (6.3-8.2)
[2024-09-02 22:14] LABS: Color,Urine YELLOW (Yellow); Glucose,Urine (UA) Negative (Negative); Ketones,Urine TRACE (Negative); Leukocyte Esterase,Urine Negative (Negative); PH,Urine 6.0 (5.0-8.5); Protein,Urine 1+ (Negative); Specific Gravity, Urine >= 1.030 (1.005-1.030); Urobilinogen,Urine 1.0 EU/dl (0.2)
[2024-09-02 22:15] LABS: Microscopic, Urine URINE MICROSCOPIC (MICROSCOPIC)
[2024-09-02 22:20] LABS: Bilirubin,Urine Negative (Negative)
[2024-09-02 22:27] LABS: Bacteria,Urine 1+ /lpf; Mucus,Urine 2+ /lpf
== END 2024-09-02 23:13 | disposition hospice, home (50) ==
PROVIDERS: Nurse Practitioner; Emergency Provider Emergency Medicine; PCP Nurse Practitioner Family
DX: N39.0 Urinary tract infection, site not specified (principal); R11.2 Nausea with vomiting, unspecified; R39.15 Urgency of urination; R45.0 Nervousness; Z66 Do not resuscitate
CPT/HCPCS: 51798; 71045; 80053; 81001; 83690; 83735; 85025; 87086; 96361; 96374; 96375; 99284; J2405; J7030

== ENCOUNTER 2024-11-19 13:31 | Outpatient (CLI) | payer OTHER, MEDICARE, BC, SELFPAY ==
--- OUTSIDE RECORDS SUMMARY | 2024-07-30 08:00 | XMS_ITS ---
Author Organization [facility] Address [address] [place] [address] Care Team Providers Care Resource Management Specialist Name Role Phone Karol Pagan Primary Care Provider KAROL Pagan APRN Unavailable Unavailable REASON FOR VISIT 6 Week F/U Encounters Encounter Location Date Provider Diagnosis [facility] [address] [place] [address] 07/30/2024 Karol Pagan Plan Of Treatment No Information Progress Notes * Ti RODRÍGUEZDOB: [birth year] (84 yo M)Acc No.[id number]:07/30/2024 Progress Notes Patient: Ti CESPEDES Provider: Sheldon Pagan APRN :1940 A ge:83 Y S ex:Male Date:07/30/2024 Address:[address], [place] Subjective: * Chief Complaints: * 1 . 6 Week F/U. * Medical History: Objective: * Vitals: Assessment: Plan: * Treatment: * * Electronic signature of Yoan Pagan APRN on 11/19/2024 at 01:41 PM EDT Sign off status: Pending * Provider: Sheldon Pagan APRN Date: 0 07/30/2024 Generated for Rosanna castro/Paulo/Rubén on: 0 11/19/2024 01:41 PM EDT
--- OUTSIDE RECORDS SUMMARY | 2024-08-13 07:45 | XMS_ITS ---
Author Organization [facility] Address [address] [place], [place] [address] Care Team Providers Care Drier Take Off Tender Name Role Phone Karol Pagan Primary Care Provider [phone] KAROL Pagan APRN Unavailable Unavailable REASON FOR VISIT f/u h/stay 07/30/[address] [facility] Encounters Encounter Location Date Provider Diagnosis [facility] [address] [place] [address] 08/13/2024 Karol Pagan Plan Of Treatment No Information Progress Notes * Ti RODRÍGUEZDOB: [birth year] (84 yo M)Acc No.[id number]:08/13/2024 HOSP F/U Patient: Zuri CESPEDESry Provider: Sheldon Pagan APRN :1940 A ge:83 Y S ex:Male Date:08/13/2024 Address:[address], [id number] Subjective: * Chief Complaints: * 1 . f/u h/stay 07/30/[address] [facility]. * Medical History: Objective: * Vitals: Assessment: Plan: * Treatment: * * Electronic signature of Yoan Pagan APRN on 11/19/2024 at 01:41 PM EDT Sign off status: Pending * Provider: Sheldon Pagan APRN Date: 0 08/13/2024 Generated for Rosanna castro/Paulo/Rubén on: 0 11/19/2024 01:41 PM EDT
--- OUTSIDE RECORDS SUMMARY | 2024-11-19 13:40 | XMS_ITS | Encounter Summary ---
Author Organization [facility] Address [address] [place] [address] Care Team Providers Care Nude Model Name Role Phone Stefania Gilliland FILER REPAIRER Primary Care Provider [phone] Encounter Details Date Type Department Care Team (Late st Contact Info) Description 01/23/2023 Lab Requisition [facility] [address] [place] [address] Ramo Talbot MD [address] [place] [id number] Encounter for general adult medical examination without [...] place to sleep or slept in a long term (including now)? No 01/19/2023 Utilities Answer Date [...] ERAL ORDERABLES Final Result Performing Organization Address City/State/[facility] Co de Phone Number [facility] [address] [place] [phone] documented in this encounter Visit Diagnoses Diagnosis [...] documented as of this encounter Care Teams Nude Model Relationship Specialty Start Date End Date Stefania Gilliland APRN [address] [place] [address] PCP - General 01/20/23 documented as of this encounter
--- OUTSIDE RECORDS SUMMARY | 2024-11-19 13:41 | XMS_ITS | Patient Health Record ---
Author Organization [place] [facility] Address [address] [place] [address] Care Team Providers Care Marketing Planner Name Role Phone Stefania Pagan Primary Care Provider STEFANIA Pagan APRN Unavailable Unavailable Migration, Provider Unavailable Unavailable Allergies Allergen (clinical drug ingredient) Drug/Non Drug Allergy documented on EMR Reaction Allergy Type Onset Date Status oseltamivir Tamiflu hallucinations Drug Allergy Active Results Component Value Reference Range Notes COMPREHENSIVE METABOLIC PANE L (13830) Reviewed date:02/08/2024 02:31:16 PM Interpretation: Performing Lab:MIHAELA, [facility], [facility] MinneapolisRwblDN[address] Ernesto Pineda Notes/Report: FASTING: YES FASTING:YES NON-FASTING; NON-FASTING; NON-FASTING GLUCOSE 93 65-99 mg/dL Fasting reference interval [...] 13 10-35 U/L ALT 15 9-46 U/L LIPID PANEL, STANDARD (7600) Reviewed date:02/08/2024 02:31:15 PM Interpretation: Performing Lab:MIHAELA Omnigye1355 [facility] [employer], Care Team ConnectMvwpPI[address] Ernesto Pineda Notes/Report: NON-FASTING; NON-FASTING; NON-FASTING FASTING:YES FASTING: YES CHOLESTEROL, TOTAL 150 <200 mg/dL HDL CHOLESTEROL 41 > OR = 40 mg/dL TRIGLYCERIDES 153 <150 mg/dL LDL-CHOLESTEROL 84 Reference range: <100 Desirable range <100 mg/dL for primary prevention; <70 mg/dL for patients with CHD or diabetic patients with > or = 2 CHD risk factors. LDL-C is now calculated using the Lauri-Keila calculation, which is a validated novel method providing better accuracy than the Friedewald equation in the estimation of LDL-C. Lauri SS et al. BROCK. 2013;310(19): 9330-5563 (http://education.Photetica/faq/WFW318) CHOL/HDLC RATIO 3.7 <5.0 (calc) NON HDL CHOLESTEROL 109 <130 mg/dL (calc) For patients with diabetes plus 1 major ASCVD risk factor, treating to a non-HDL-C goal of <100 mg/dL (LDL-C of <70 mg/dL) is considered a therapeutic option. CBC (INCLUDES DIFF/PLT) (639 9) Reviewed date:02/08/2024 02:31:16 PM Interpretation: Performing Lab:MIHAELA Omnigye13[address] [employer], AerobLowyNC[address] Ernesto Pineda Notes/Report: NON-FASTING; NON-FASTING; NON-FASTING FASTING:YES [...] MPV 11.0 7.5-12.5 fL ABSOLUTE NEUTROPHILS 4872 5048-5765 cells/uL ABSOLUTE LYMPHOCYTES 0784 805-7259 cells/uL ABSOLUTE MONOCYTES 434 200-950 cells/uL ABSOLUTE EOSINOPHILS 42 15-500 cells/uL ABSOLUTE BASOPHILS 28 0-200 cells/uL NEUTROPHILS 69.6 LYMPHOCYTES 23.2 MONOCYTES 6.2 EOSINOPHILS 0.6 BASOPHILS 0.4 COMPREHENSIVE METABOLIC PANE L (79530) Reviewed date:05/02/2024 12:40:44 PM Interpretation: Performing Lab:CB, [facility] Wpio6947 [facility], [facility] HospitalQhzxSW[address] Ernesto Pineda Notes/Report: NON-FASTING; NON-FASTING; NON-FASTING; NON-FASTING [...] 9) Reviewed date:05/02/2024 12:40:44 PM Interpretation: Performing Lab:MIHAELA [employer]-Care Team Connecte1355 [address] [employer], AerobUffrUS[address] Ernesto Pineda Notes/Report: NON-FASTING; NON-FASTING; NON-FASTING; NON-FASTING [...] MPV 10.6 7.5-12.5 fL ABSOLUTE NEUTROPHILS 4422 9598-1651 cells/uL ABSOLUTE LYMPHOCYTES 6413 568-8814 cells/uL ABSOLUTE MONOCYTES 429 200-950 cells/uL ABSOLUTE EOSINOPHILS 40 15-500 cells/uL ABSOLUTE BASOPHILS 33 0-200 cells/uL NEUTROPHILS 67 LYMPHOCYTES 25.4 MONOCYTES 6.5 EOSINOPHILS 0.6 BASOPHILS 0.5 PSA, TOTAL (5363) Reviewed date:05/02/2024 12:40:44 PM Interpretation: Performing Lab:MIHAELA Omnigye[address] [employer], AerobEwmcAB[address] Ernesto Pineda Notes/Report: NON-FASTING; NON-FASTING; NON-FASTING; NON-FASTING PSA, TOTAL 0.68 < OR = 4.00 ng/mL The total PSA value from this assay system is standardized against the WHO standard. The test result will be approximately 20% lower when compared to the equimolar-standardized total PSA ([place]). Comparison of serial PSA results should be interpreted with this fact in mind. This test was performed using the Siemens chemiluminescent method. Values obtained from different assay methods cannot be used interchangeably. PSA levels, regardless of value, should not be interpreted as absolute evidence of the presence or absence of disease. TSH (899) Reviewed date:05/02/2024 12:40:44 PM Interpretation: Performing Lab:MIHAELA, [facility] [address], [facility] HospitalWkhaOH[address] Ernesto Pineda Notes/Report: NON-FASTING; NON-FASTING; NON-FASTING; NON-FASTING TSH 0.35 0.40-4.50 mIU/L Reason For Referral Reason BCN for PT/OT and nursing for kidd catheter care Diagnosis 1 Weakness (R53.1) Referral Organization [facility] JEFFRY COTO Referring Provider First Name Stefania Referring Provider Last Name Ej Referring Provider Speciality Family Pra ctice Referred Organization [facility] Referred Provider Specialty [facility] General Notes Theresa Petit 2024 01:11:43 PM >[facility] 05/01/2024 04:17:12 PM >starting on Referral Priority Routine Reason please fax order to N okay to change kidd catheter PRN Diagnosis 1 Urinary retention (R 33.9) Referral Organization [facility] JEFFRY COTO Referring Provider First Name Stefania Referring Provider Last Name Ej Referring Provider Speciality Family Pra ctice Referral Priority Routine Reason Home sleep study Diagnosis 1 Urinary retention (R 33.9) Referral Organization [facility] Referring Provider First Name Stefania Referring Provider Last Name Ej Referring Provider Speciality Family Pra ctice Referred Organization [facility] Referred Address [address], [place], [place],[address], Referred Provider Specialty Sleep Study General Notes Theresa Petit 2024 10:37:59 AM >sent to [facility] Referral Priority Routine Reason Hospice Diagnosis 1 Chronic systolic con gestive heart failure (I50.22) Diagnosis 2 Chronic obstructive pulmonary disease, unspecified COPD type (J44.9) Diagnosis 3 Abdominal aortic ane urysm (AAA) without rupture, unspecified part (I71.40) Diagnosis 4 Paroxysmal atrial fi brillation (I48.0) Diagnosis 5 Unilateral AKA, rigmalik t (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 Long- skin c ancer on head patient was seen [place] [address] Long for skin cancer removal Referral Organization [facility] Referring Provider First Name Stefania Referring Provider Last Name Ej Referring Provider Speciality [facility] ctice Referred Organization [facility] Referred Address [address] [facility] [address] [facility], [place], [place],[address], Referred Provider Specialty Dermatology General Notes Theresa Petit 2024 03:52:28 PM >faxed to Dr. Long Referral Priority Routine Medications Medication SIG (Take, Route, Frequency, Duration) Notes Start Date End Date Status Nystatin 004857 UNIT/GM 1 chely applied topically 3 times [...] review and pick correct strength-formulati on from [employer]ube options. 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, level unspecified, initial encounter (S88.921A) Active confirmed Problem Long-term current use of anticoagulant (499645866) 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) Active confirmed Problem Long-term current use of antithrombotic (528313060925459) 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 antithrombotics/a ntiplatelets (Z79.02) Active confirmed Problem 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) Active confirmed Problem Urinary retention (244663058) Urinary retention (R33.9) Active confirmed Problem Neuropathy (192803398) Neuropathy (G62.9) Active confirmed Problem Gastroesophageal reflux disease (797171291) GERD without esophagitis (K21.9) Active confirmed Problem Seasonal allergy (503639729) Seasonal allergies (J30.2) Active confirmed Problem Acute exacerbation of chronic obstructive airways disease (143119290) COPD exacerbation (J44.1) Active confirmed Problem Fatigue (41880057) Fatigue (R53.83) Active conf irmed Problem Acute on chronic systolic heart failure (288348958) Acute on chronic systolic heart failure (I50.23) Active confirmed Problem Memory loss (10718604) Memory loss (R41.3) Active confirmed Problem Atherosclerotic heart disease of [place] coronary artery without angina pectoris (580933764448854) Coronary artery disease involving [place] coronary artery of [place] heart without angina pectoris (I25.10) Active confirmed Problem COPD - Chronic obstructive pulmonary disease (69499161) Chronic obstructive pulmonary disease, unspecified COPD type (J44.9) Active confirmed Problem Chronic systolic heart failure (693086669) Chronic systolic congestive heart failure (I50.22) Active confirmed Problem Psoriasis of scalp (654190418) 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) Active confirmed Problem Ataxia (28483616) Ataxia (R27.0) Active confirm ed Problem Heart failure (40453306) Acute on chronic congestive heart failure, unspecified congestive heart failure type (I50.9) Active confirmed Problem Gouty arthritis (90197863) Gouty arthritis (M10.9) Active confirmed Problem Reactive depression (situational) (88148987) 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) Active confirmed Problem Daytime somnolence (861718199516) Daytime somnolence (R40.0) Active confirmed Problem Acute systolic heart failure (943830321) Acute systolic heart failure (I50.21) Active confirmed Problem Lower urinary tract symptoms due to benign prostatic hypertrophy (68108271198758) Benign prostatic hyperplasia with lower urinary tract symptoms (N40.1) Active confirmed Problem Renal artery stenosis (531512191) Renal artery stenosis (I70.1) Active confirmed Problem Skin cancer (826047299) Skin cancer (C44.90) Active confirmed Problem Stenosis of left carotid artery (589008187447354) Stenosis of left carotid artery (I65.22) Active confirmed Problem 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) (18846075225336) Heart failure and kidney disease due to high blood pressure (I13.0) Active confirmed Problem Chronic kidney disease stage 3A (disorder) (999021031) Stage 3a chronic kidney disease (CKD) (N18.31) Active confirmed Problem Chronic kidney disease stage 3 (disorder) (383522306) Chronic kidney disease with symptom management only, stage 3 (moderate) (N18.30) Active confirmed Problem Abdominal aortic aneurysm without rupture (disorder) (32199385) Abdominal aortic aneurysm (AAA) without rupture, unspecified part (I71.40) Active confirmed Problem Subarachnoid intracranial hemorrhage (79239443) SAH (subarachnoid hemorrhage) (I60.9) Active confirmed Problem Unilateral AKA, 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) Active confirmed Vital Signs Heart Rate 88 /min 08/02/2024 Temperature 98 degrees Fahrenheit 08/02/2024 Blood pressure diastolic 64 mm Hg 08/02/2024 Height 65 in 08/02/2024 Blood pressure systolic 100 mm Hg 08/02/2024 Weight 130 lbs 08/02/2024 BMI 21.63 kg/m2 08/02/2024 Encounters Encounter Location Date Provider Diagnosis [facility] [address] [place], [place] [address] 02/06/2024 Stefania McNees [facility] [address] [place] [address] 05/25/2024 Provider Migration [facility] [address] [place], [place] [address] 12/19/2023 Stefania Ej Unilateral AKA, righ t S78.111A ; Encounter for Medicare annual wellness exam Z00.00 ; Coronary artery disease involving [place] coronary artery of [place] heart without angina pectoris I25.10 ; GERD [...] type J44.9 and Encounter for immunization Z23 [facility] [address] [facility] [address] [place] [address] 04/04/2024 Stefania McNees Influenza A J10.1 ; Systolic CHF, acute on chronic I50.23 and Hypoxia R09.02 [facility] [address] [facility] [address] [place] [address] 04/30/2024 Stefania McNees Elevated PSA R97.20 ; Urinary retention R33.9 ; Fatigue, unspecified type R53.83 and Weakness R53.1 [facility] [address] [facility] [address] [place] [address] 05/28/2024 Stefania McNees Coronary artery dise ase involving [place] coronary artery of [place] heart without angina pectoris I25.10 ; Human metapneumovirus (hMPV) pneumonia J12.3 ; Other retention of urine R33.8 ; Benign prostatic hyperplasia with lower urinary tract symptoms N40.1 ; Acute systolic heart failure I50.21 ; Memory loss R41.3 and COPD exacerbation J44.1 [facility] [address] [facility] [address] [place] [address] 06/11/2024 Stefania McNees Fatigue, unspecified type R53.83 ; Urinary retention R33.9 ; Snoring R06.83 and Daytime somnolence R40.0 [facility] [address] [address] 08/02/2024 Stefania McNees V-tach I47.20 ; Acut e on chronic systolic heart failure I50.23 ; Pneumonia of right lower lobe due to infectious organism J18.9 ; Adult failure to thrive R62.7 ; Presence of cardiac resynchronization therapy defibrillator (INTAKE CLERK-D) Z95.810 ; Acute cystitis without hematuria N30.00 ; Weakness R53.1 ; Primary insomnia F51.01 ; Essential (primary) hypertension I10 ; Coronary artery disease involving [place] coronary artery of [place] heart without angina pectoris I25.10 ; Chronic obstructive pulmonary disease, unspecified COPD type J44.9 ; Mixed hyperlipidemia E78.2 ; Paroxysmal atrial fibrillation I48.0 ; Benign prostatic hyperplasia with lower urinary tract symptoms N40.1 ; Kidd catheter in place Z97.8 and Vasovagal syncope R55 [facility] [address] [place] [address] 03/07/2024 Stefania McNees Ataxia R27.0 and Par tial traumatic amputation of right lower leg, level unspecified, initial encounter S88.921A [facility] [address] [place] [address] 03/29/2024 Stefania McNees [facility] [address] [place] [address], [place] [address] 04/09/2024 Stefania McNees [facility] [address] [place] [address] 04/15/2024 Stefania McNees [facility] [address] [place] [address] 05/07/2024 Stefania McNees [facility] [address] [place] [address] 05/07/2024 Stefania McNees [facility] [address] [place] [address] 05/09/2024 Stefania McNees [facility] [address] [place] [address] 05/21/2024 Setfania McNees [facility] [address] [place] [address] 06/05/2024 Stefania McNees [facility] [address] [place] [address] 06/12/2024 Stefania McNees [facility] [address] [facility] [address] [place] [address] 06/19/2024 Stefania McNees [facility] [address] [place] [address] 06/19/2024 Stefania McNees [facility] [address] [place] [address] 07/05/2024 Stefania McNees Yeast dermatitis B37 .2 [facility] [address] [place] [address] 07/05/2024 Stefania McNees [facility] [address] [place] [address] 07/30/2024 Stefania McNees [facility] [address] [place] [address] 07/30/2024 Stefania McNees [facility] [address] [facility] [address] [place] [address] 08/05/2024 Stefania McNees Yeast dermatitis B37 .2 [facility] [address] [place] [address] 08/13/2024 Stefania McNees [facility] [address] [place] [address] 09/03/2024 Stefania McNees Assessments Encounter Date Diagnosis (ICD [...] R27.0) 04/04/2024 Influenza A (ICD-10 - J10.1) [facility] records reviewed and no further changes to [...] this point until seen by urology. Home health for f/c care educations and PT/OT to evaluate. Will check PSA and forward to urology as indicated 04/30/2024 Elevated PSA (ICD-10 - R97.20) 05/28/2024 Coronary artery disease involving [place] coronary artery of [place] heart without angina pectoris (ICD-10 - I25.10) [facility] records reviewed. No acute angina. Keep FU [...] - S88.921A) 12/19/2023 Coronary artery disease involving [place] coronary artery of [place] heart without angina pectoris (ICD-10 - I25.10) [...] 08/02/2024 Presence of cardiac resynchronization therapy defibrillator (INTAKE CLERK-D) (ICD-10 - Z95.810) 12/19/2023 Essential (primary) hypertension [...] on exam 08/02/2024 Coronary artery disease involving [place] coronary artery of [place] heart without angina pectoris (ICD-10 - I25.10) [...] cor e strengthening 03/07/2024 COMPREHENSIVE METABOLIC PANEL (42825) CBC (INCLUDES DIFF/PLT) (6399) Insurance Providers Payer Name Payer Address Payer Phone Subscriber Number Group Number Insured Name Patient Relationship to Insured Coverage Start Date Coverage End Date [place] [address] [place] [place] [address] [phone] [id number] Rodríguez Ti Self - patient is the insured [facility] [address] [place] [address] [id number] Rodríguez Ti Self - patient is the insured [facility] [address] [facility] [address] [place] [address] [phone] ACL Ti Rodríguez Self - patient is [...] Scope - food Hospitalization History Reason Date(Month/Year) H 09/2022 [facility] - Pacemaker /2025 [facility] 07/21-07/2024 2 Cardiac stents 04/2024 Brain Bleed-[facility] 04/2023 PAD with osteo, 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
--- OUTSIDE RECORDS SUMMARY | 2024-11-19 13:41 | XMS_ITS ---
Author Organization [facility] Address [address] [place] [address] Care Team Providers Care Marble Mechanic Helper Name Role Phone Stefania Gilliland HOME HEALTH NURSE LICENSED PRACTICAL Primary Care Provider Active Problems Problem Noted Date Diagnosed Date Stenosis of left carotid artery 04/17/2023 Skin [...] (04/06) unless holding medications is strongly contraindicated Multiple left-sided nontraum atic localized intracerebral hemorrhages [...] symptoms 03/17/2023 Coronary artery disease invo lving [place] coronary artery of [place] heart without angina pectoris 03/17/2023 Abdominal aortic aneurysm 03/17/2023 Obesity (BMI 30.0-34.9) 03/17/2023 CKD (chronic kidney disease) 02/14/2023 Overview (02/24/2023): - Cr 1.03 on admit - WNL S/P AKA (above knee amputation), right 3 Overview (03/24/2023): - 02/08/23: Right above knee amputation and right groin 2: Maame removed per vascular in ED Class [...] 5 mg daily GERD (gastroesophageal reflux disease) 3 Overview (02/24/2023): - Continue home lansoprazole BPH [...] Problem Noted Date Diagnosed Date Resolved Date Overweight (BMI 25.0-29.9) 05/19/2023 0 11/10/2024 UTI (urinary tract infection) 03/23/2023 11/10/2024 Overview (03/24/2023): Received one time dose Rocephin Urine culture with mixed aron Avulsion of skin 03/17/2023 03/24/2023 COVID-19 03/17/2023 [...] 02/14/2023 Orthopnea 02/06/2023 02/14/2023 Post-operative numbness 02/02/2023 02/03/2023 Overview (02/24/2023): - Continue gabapentin 800 mg [...]
--- OUTSIDE RECORDS SUMMARY | 2024-11-19 13:41 | XMS_ITS | Clinical Summary ---
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 Not on file 11/2022 Does Anyone Keep You from Co ntacting Others or Doint Things Outside the Home? Not on file 11/29/2022 Physical Sign of Abuse Present Not on file 1 Housing Stability Answer Date Recorded Current Living Arrangements Not on file 11/20 Potentially Unsafe Housing Conditions Not on ralf e 11/29/2022 Family and Community Support Answer Brandan e Recorded Help with Day-to-Day Activities Not on file 11/29/2022 Lonely or Isolated Not on file 11/29/2022 Employment Answer Date Recorded Do you want help finding or keeping work or a bon b? Not on file 11/29/2022 Disabilities Answer Date Recorded Concentrating, Remembering, or Making Decisions Difficulty Not on file 11/29/2022 Doing Errands Independently Difficulty Not on fi le 11/29/2022 Education Answer Date Recorded Help with school or training? Not on file Preferred Language Not on file 11/29/2022 Sex and Gender Information Value Date Recorded Sex Assigned at Not on file Legal Sex Male 1:54 PM EDT Gender Identity Not on file Sexual Orientation Not on file Last Filed Vital Signs Vital Sign Reading Time Taken Comments Blood Pressure 140/70 05/29/2013 9:49 AM EDT Pulse - - Temperature - - Respiratory Rate - - Oxygen Saturation - - Inhaled Oxygen Concentration - - Weight 78 kg (172 lb 0.1 oz) 05/29/2013 9:49 AM EDT Height 165.1 cm (5' 5 ) 05/29/2013 9:49 AM EDT Body Mass Index 28.62 05/29/2013 9:49 AM EDT Plan of Treatment Health Maintenance Due Date Last Done Comments ANNUAL PHYSICAL 1942 TDAP/TD VACCINES (1 - Tdap) 1961 Pneumococcal Vaccine 50+ (1 of 1 - PCV) 1992 ZOSTER VACCINE (1 of 2) 1992 RSV Vaccine - Adults (1 - 1-dose 75+ series) 8 INFLUENZA VACCINE 09/20/2024 COVID-19 Vaccine ( - season) 2024
--- OUTSIDE RECORDS SUMMARY | 2024-11-19 13:41 | XMS_ITS | Clinical Summary ---
Author Organization [facility] Address [address] [place] [address] Care Team Providers Care Crepe Machine Operator Name Role Phone Stefania Gilliland POPULATION GENETICIST Primary Care Provider [phone] Allergies No known active allergies Medications ezetimibe-simva [...] Coronary artery disease invo [place]ving [place] coronary artery of [place] heart without angina pectoris 03/17/2023 Abdominal aortic [...] 01/18/23: Right superficial femoral artery thrombectomy (Dr. Gera) - Continue Xarelto & Plavix (holding until [...] 03/17/2023 03/24/19 24 Psoriasis of scalp 03/17/2023 4 Plantar fasciitis of right foot 03/17/2023 03/24/2023 [...] drink first t hugo in the morning (EYE-MANAGER ECOMMERCE) to steady your nerves or to get rid of a hangover? 0 01/29/2023 CAGE Questionnaire Score 0 023 Utilities Answer Date Recorded In the past 12 months has th [employer], gas, oil, or water [employer] threatened to shut off services in your [...] Done Comments UKY-Medicare Annual Wellness (AWV) 1942 UKY-/Child/Adol SDOH Screenings 1942 UKY- SDOH Screenings 1960 UKY-Adult SDOH Screenings 1960 UKY-Pneumococcal Vaccine: 50+ Years (1 of 2 - PCV) 1961 UKY-Zoster Vaccines (1 of 2) 1961 UKY-RSV Vaccine: 60+ Years or (1 - 1-dose 75+ series) 2017 UKY-Depression Screening 03/17/2024 03/17/2023 [id number] Vaccine ( season) 2024 10/14/2022, 12/27/2021, 08/30/2021, Additional history exists UKY-Influenza Vaccine (#1) 2024 11/07/2022, UKY-DTaP,Tdap,and Td [...] this topic Medical Devices Implanted Type Area Director Of Slot Operations Device Identifier Shelf Expiration Date Model / Serial / Lot Graft Excluder Trnk Ipsilat 15f 14.5cm/12mm/23mm - [id number] Implanted:Qty: 1 on 01/17/2023 by Jamey Ann MD at [facility]-74538 4 10/23/2025 [id number] / [id number] / [id number] Coil Vascular 6nlj7fw - [id number] Implanted:Qty: 1 on 01/17/2023 by Jamey Ann MD at [id number] 09/20/2027 [id number] / / [id number] Coil Vascular 4xun4cn - [id number] Implanted:Qty: 1 on 01/17/2023 by Jamey Ann MD at [facility]-375390 09/20/2027 [id number] / / [id number] Component Contralateral Leg 12mm 12cm - [id number] Implanted:Qty: 1 on 01/17/2023 by Jamey Ann MD at [facility] [employer] [place] [employer]-58293 4 09/28/2025 [id number] / [id number] / [id number] Component Contralateral Leg 12mm 10cm - [id number] Implanted:Qty: 1 on 01/17/2023 by Jamey Ann MD at [facility] [employer] [place] [employer]-92121 4 08/27/2025 [id number] / [id number] / [id number] Stent Graft Iliac [id number] Lviabahnbx - [id number] Implanted:Qty: 1 on 01/17/2023 by Jamey Ann MD at [facility] [employer] [place] [employer]-06434 4 10/30/2025 [id number] / [id number] / [id number] Vascuguard 8 X 8 - [id number] Implanted:Qty: 1 on 01/17/2023 by Jamey Ann MD at [facility] [employer]-93969 7 08/24/2023 [id number] / / [id number] Vascuguard 8 X 8 - [id number] Implanted:Qty: 1 on 01/17/2023 by Jamey Ann MD at [facility] Right: Groin [employer]-35223 7 08/24/2023 [id number] / / [id number] Additional Health Concerns Infection Onset Date 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 05/19/2023 Insurance MEDICARE ANTHEM Advance Directives Documents on File Type Date Recorded Patient Inspection Clerk Expl anation Power of Grocery Store Associate 06/06/2023 8:37 AM Power of Grocery Store Associate 05/25/2023 12:13 PM Power of Grocery Store Associate 05/24/2023 2:25 PM Advance Directives and Livin g Will 03/22/2023 6:53 PM Power of Grocery Store Associate 03/22/2023 6:53 PM * DNR/DNI (Latest Code Status on File) Date Activated Date Inactivated Comments 05/19/2023 9:19 PM 06/05/2023 9:01 PM son Ti claudio d daughter Marce (POA) also agree patient's [...] Patient has decision-making capacity? Yes Care Teams Crepe Machine Operator Relationship Specialty Start Date End Date Stefania Gilliland APRN [address] [place] [address] [facility] - General 01/20/23
[2024-11-19 13:42] LABS: Microscopic, Urine URINE MICROSCOPIC (MICROSCOPIC)
[2024-11-19 13:44] LABS: Bilirubin,Urine Negative (Negative); Color,Urine YELLOW (Yellow); Glucose,Urine (UA) Negative (Negative); Ketones,Urine Negative (Negative); Leukocyte Esterase,Urine 2+ (Negative); PH,Urine 7.5 (5.0-8.5); Protein,Urine 2+ (Negative); Specific Gravity, Urine 1.020 (1.005-1.030); Urobilinogen,Urine 1.0 EU/dl (0.2)
[2024-11-19 13:55] LABS: Bacteria,Urine 4+ /lpf
== END 2024-11-19 23:59 | disposition home or self-care (01) ==
LOC: LAB.DROPOF 13:35
PROVIDERS: PCP Family Medicine Hospice and Palliative Medicine; Visit Provider Family Medicine Hospice and Palliative Medicine
DX: Z13.89 Encounter for screening for other disorder (principal)
CPT/HCPCS: 81001; 87086; 87088

== ENCOUNTER 2024-11-29 08:01 | Inpatient (IN) | payer OTHER, SELFPAY ==
[2024-11-29] VITALS (23 sets, daily range): BP systolic 104–185; BP diastolic 40–72; PULSE 70–78; RESP 15–21; TEMP 33.2–36.6; O2SAT 79–100; BMI 19.8
--- NOTE | 2024-11-29 08:00 | XR_ITS ---
FINAL REPORT CLINICAL HISTORY: trauma alert fall on blood thinner COMPARISON: 07/22/2024 FINDINGS: A portable view of the chest was obtained. In the interval since the prior examination an AICD device has been placed. The patient is again noted to be poststernotomy. Cardiac and mediastinal silhouettes are within normal limits. The lungs are clear. There is no pleural effusion or pneumothorax. IMPRESSION: No acute process on this portable exam. Reviewed, Interpreted and Dictated by Britt Bermudez MD Transcribed by Felicity Trejo Authenticated and [facility]
--- NOTE | 2024-11-29 08:00 | XR_ITS ---
FINAL REPORT CLINICAL HISTORY: trauma alert fall on blood thinner COMPARISON: None FINDINGS: SINGLE VIEW PELVIS: A single view of the pelvis was obtained. There is no acute fracture or dislocation. There are degenerative changes in the hip joints bilaterally, greater on the left than on the right. Pelvic calcifications are present, most likely phleboliths. IMPRESSION: Bilateral hip degenerative changes, with no acute bony abnormality. Reviewed, Interpreted and Dictated by Britt Bermudez MD Transcribed by Felicity Trejo Authenticated and [facility]
--- NOTE | 2024-11-29 08:03 | CT_ITS ---
FINAL REPORT TECHNIQUE: Thin section axial images were obtained through the abdomen and pelvis after contrast injection per CT angiogram protocol. Multiplanar reconstruction images were obtained from the axial data. This exam was performed with techniques to keep radiation dose as low as reasonably achievable. This includes automated exposure control, adjustment of the MA and KVP, and iterative reconstruction technique. CLINICAL HISTORY: trauma, critical injury suspected, FALL COMPARISON: 09/26/2022 FINDINGS: CTA: There are changes of endoluminal graft repair of the previously seen aortic aneurysm. The [place] aneurysm measures 42 mm, was previously 49 mm. There is densely calcified plaque involving the origins of the celiac axis and superior mesenteric artery, which produces stenosis, although the exact degree of stenosis is difficult to assess. The inferior mesenteric artery is not identified. The renal arteries are patent. The common iliac arteries and visualized portions of the internal and external iliac arteries are patent. The left internal iliac artery is small, but patent. No significant stenosis. NONVASCULAR: The gallbladder is present. The solid abdominal organs are without acute abnormality. Scarring previously noted in the left kidney is once again identified. Note is made of bilateral adrenal hyperplasia. The GI tract is without acute abnormality. The prostate is enlarged, and a catheter is present in the urinary bladder. There are bilateral fat-containing inguinal hernias present. No lymphadenopathy or free fluid. No acute osseous abnormality. IMPRESSION: 1. No acute traumatic injury in the abdomen or pelvis. 2. Changes of endoluminal graft repair are noted as described. 3. Densely calcified plaque is present at the origins of the celiac axis and superior mesenteric artery. The degree of stenosis is difficult to assess. The inferior mesenteric artery is not identified. Reviewed, Interpreted and Dictated by Britt Bermudez MD Transcribed by Felicity Trejo Authenticated and [facility]
--- NOTE | 2024-11-29 08:03 | CT_ITS ---
FINAL REPORT TECHNIQUE: Thin section axial images were obtained from skull base to vertex without contrast. Coronal reconstruction images were obtained from the axial data. Exam was performed using dose reduction techniques such as automated exposure control, adjustment of the mA and kV according to patient size, and use of iterative reconstruction technique. CLINICAL HISTORY: trauma, critical injury suspected COMPARISON: 05/21/2024 FINDINGS: There is atrophy. No mass effect or midline shift. No intracranial hemorrhage. No hydrocephalus. Periventricular low density is likely related to changes of chronic small vessel ischemia. The basilar cisterns are preserved. The posterior fossa is without acute abnormality. The soft tissues are without acute abnormality. No skull fracture is identified. IMPRESSION: No acute intracranial abnormality. Atrophy and changes suggesting chronic small vessel ischemia. Reviewed, Interpreted and Dictated by Britt Bermudez MD Transcribed by Lyudmila Davila Authenticated and . [facility]
--- NOTE | 2024-11-29 08:03 | CT_ITS ---
FINAL REPORT TECHNIQUE: Thin section axial images were obtained through the thoracic spine without contrast. Sagittal and coronal images were obtained from the axial data. CLINICAL HISTORY: trauma, critical injury suspected, FALL FINDINGS: There is no acute fracture of the thoracic spine. There is no malalignment. Multilevel degenerative disc disease is identified. No acute paraspinal abnormality is identified. IMPRESSION: No acute osseous abnormality of the thoracic spine. Degenerative disc disease. Reviewed, Interpreted and Dictated by Britt Bermudez MD Transcribed by Lyudmila Dvaila Authenticated and [facility]
--- NOTE | 2024-11-29 08:03 | CT_ITS ---
FINAL REPORT TECHNIQUE: Thin section axial images were obtained from the aortic arch to the skull base after intravenous contrast injection per CTA protocol. Multiplanar reconstruction images were obtained. Exam was performed using dose reduction techniques and the ALARA principle. CLINICAL HISTORY: trauma, critical injury suspected COMPARISON: 03/31/2022 FINDINGS: CTA NECK: Aortic arch: The origins of the great vessels from the aortic arch are not visualized on this examination. Right carotid artery: The right common carotid artery is patent without stenosis. There is mild calcified plaque in the distal common carotid artery and the carotid bulb. Mild plaque is also present in the proximal right internal carotid artery. The cervical portions of the right internal carotid artery are otherwise patent without stenosis. Less than 50% stenosis per NASCET criteria. Left carotid artery: There is dense calcified plaque in the carotid bulb and the proximal left internal carotid artery, producing 70 to 80% luminal diameter stenosis. The more distal cervical portions of the left internal carotid artery are patent without stenosis. 70-80% stenosis per NASCET criteria. Vertebral arteries: The vertebral arteries are patent. No significant stenosis. IMPRESSION: 1. Less than 50% stenosis of the proximal right internal carotid artery. 2. Dense calcified plaque produces 70 to 80% luminal diameter stenosis in the left carotid bulb and proximal left internal carotid artery. 3. Antegrade flow without significant stenosis in the bilateral vertebral arteries. Reviewed, Interpreted and Dictated by Britt Bermudez MD Transcribed by Felicity Trejo Authenticated and [facility]
--- NOTE | 2024-11-29 08:03 | CT_ITS ---
FINAL REPORT TECHNIQUE: Thin section axial images were obtained through the cervical spine without contrast. Multiplanar reconstruction images were obtained from the axial data. Exam was performed using dose reduction techniques. CLINICAL HISTORY: trauma, critical injury suspected, FALL FINDINGS: There is no acute fracture or acute malalignment of the cervical spine. There is multilevel degenerative disc disease, most pronounced at C5-6 and C6-7. There is no evidence of unilateral or bilateral facet lock. Vertebral body height is preserved. No acute paraspinal abnormality is identified. IMPRESSION: Multilevel degenerative disc disease. Reviewed, Interpreted and Dictated by Britt Bermudez MD Transcribed by Lyudmila Davila Authenticated and [facility]
--- NOTE | 2024-11-29 08:03 | CT_ITS ---
FINAL REPORT TECHNIQUE: Thin section axial images are obtained through the brain after intravenous contrast injection. Multiplanar reconstructions were obtained from the axial data. Exam was performed using dose reduction techniques such as automated exposure control, adjustment of the mA and kV according to patient size, and use of iterative reconstruction technique. CLINICAL HISTORY: trauma, critical injury suspected COMPARISON: None FINDINGS: The intracerebral portions of the carotid arteries are patent. The anterior and middle cerebral arteries are patent without stenosis or occlusion. The posterior cerebral arteries are patent. There are bilateral persistent origins of the posterior cerebral arteries, with a small basilar artery present. The basilar artery is patent though small. The vertebral arteries are patent. There is no significant stenosis, aneurysm, or AVM. IMPRESSION: 1. Persistent origins of the posterior cerebral arteries bilaterally, with a small basilar artery, as a normal variant. 2. No acute intracranial vascular abnormality is identified. Reviewed, Interpreted and Dictated by Britt Bermudez MD Transcribed by Felicity Trejo Authenticated and . [facility]
--- NOTE | 2024-11-29 08:03 | CT_ITS ---
FINAL REPORT TECHNIQUE: Thin section axial images were obtained through the lumbar spine without contrast. Sagittal and coronal reconstruction images were obtained from the axial data. Exam was performed using dose reduction techniques. CLINICAL HISTORY: trauma, critical injury suspected, FALL FINDINGS: There is no acute fracture or acute malalignment of the lumbar spine. Vertebral body height is preserved. The appearance of the superior endplate of L4 is unchanged from March 2024. There is multilevel degenerative disc disease. Paraspinal soft tissues are within normal limits. There is no paraspinal mass or fluid collection. IMPRESSION: No acute abnormality of the lumbar spine. Mild multilevel degenerative disease. Reviewed, Interpreted and Dictated by Britt Bermudez MD Transcribed by Lyudmila Davila Authenticated and [facility]
--- NOTE | 2024-11-29 08:03 | CT_ITS ---
FINAL REPORT TECHNIQUE: Axial imaging of the chest is obtained after the administration of contrast. 3-D MIP reformatted images were also obtained and reviewed per PE protocol. This study was performed with techniques to keep radiation doses as low as reasonably achievable (ALARA). Individualized dose reduction techniques using automated exposure control or adjustment of mA and/or kV according to the patient's size were employed. CLINICAL HISTORY: trauma, critical injury suspected COMPARISON: 06/29/2024 FINDINGS: There is no aortic dissection or aneurysm. There is no aortic injury or mediastinal hemorrhage. The heart is enlarged, and stable when compared with the prior exam. There is no mediastinal, hilar, or axillary lymphadenopathy. There is no pleural or pericardial effusion. No pulmonary masses are identified. There is bronchial wall thickening in the lower lobes bilaterally, more prominent on the right than the left, and worse since the prior CTA. There are ground glass opacities in the right lower lobe, that may represent, favor infectious/inflammatory. No acute osseous abnormality. IMPRESSION: 1. No aortic dissection, aneurysm, or mediastinal hemorrhage identified. 2. Bronchial wall thickening is present in the lower lobes bilaterally, greater on the left than on the right, more advanced since the prior CTA. There are also ground glass opacities in the right lower lobe, favor infectious/inflammatory. Reviewed, Interpreted and Dictated by Britt Bermudez MD Transcribed by Felicity Trejo Authenticated and [facility]
--- NOTE | 2024-11-29 08:04 | CT_ITS ---
FINAL REPORT TECHNIQUE: Thin section axial images were obtained through the face without contrast. Coronal reconstruction images are obtained from the axial data. Exam was performed using dose reduction techniques such as automated exposure control, adjustment of the mA and kV according to patient size, and use of iterative reconstruction technique. CLINICAL HISTORY: trauma, critical injury suspected, FALL FINDINGS: Motion artifact limits exam. There are bilateral nasal bone fractures. The right nasal bone fracture is displaced. The paranasal sinuses are clear. There is soft tissue edema along the bridge of the nose. IMPRESSION: Bilateral nasal bone fractures. Reviewed, Interpreted and Dictated by Britt Bermudez MD Transcribed by Lyudmila Davila Authenticated and [facility]
--- NOTE | 2024-11-29 08:04 | CT_ITS ---
FINAL REPORT TECHNIQUE: Axial images through the pelvis were performed by computed tomography. Reconstructed images were obtained and reviewed. This study was performed with techniques to keep radiation doses as low as reasonably achievable, (ALARA). Individualized dose reduction techniques using automated exposure control or adjustment of mA and/or kV according to the patient's size were employed. CLINICAL HISTORY: trauma, critical injury suspected, FALL FINDINGS: There is no acute osseous abnormality. There is degenerative disease of the hips bilaterally. There is partial ankylosis of the bilateral sacroiliac joints. IMPRESSION: No acute osseous abnormality. Reviewed, Interpreted and Dictated by Britt Bermudez MD Transcribed by Lyudmila Davila Authenticated and [facility]
--- NOTE | 2024-11-29 08:06 | HMH.EDGENADL ---
Discharge Plan Disposition Patient Disposition: Still a Patient Condition: Good Prescriptions Prescriptions: No Action Entresto 24-26 mg tablet 1 tab PO BID Qty: 60 5RF memantine 5 mg tablet 5 mg PO BID trazodone 100 mg tablet 100 mg PO HS lansoprazole 30 mg capsule,delayed release(DR/EC) 30 mg PO DAILY levocetirizine 5 mg tablet 5 mg PO DAILY Trelegy Ellipta 100-62.5-25 mcg Blister With Device 1 inh INHALATION DAILY famotidine 20 mg tablet 20 mg PO DAILY duloxetine 60 mg capsule,delayed release(DR/EC) 60 mg PO DAILY Eliquis 5 mg tablet 5 mg PO BID tamsulosin 0.4 mg capsule 0.4 mg PO HS fluticasone propionate 50 mcg/actuation spray,suspension 1 spray INTRANASAL DAILY Rx Instructions: 1 spray in both nostrils clopidogrel 75 mg Tablet 75 mg PO DAILY 30 Days Qty: 30 0RF spironolactone 25 mg Tablet 25 mg PO DAILY 30 Days Qty: 30 0RF Jardiance 10 mg Tablet 10 mg PO DAILY 30 Days Qty: 30 0RF oxybutynin chloride 5 mg tablet 5 mg PO BID PRN (Reason: bladder spasms) Qty: 60 0RF amiodarone 200 mg Tablet 400 mg PO BID 30 Days Qty: 120 0RF hydrocodone-acetaminophen 5-325 mg Tablet 1 tab PO Q6HP PRN (Reason: Mild To Moderate Pain (1-6)) 3 Days Qty: 11 0RF levofloxacin 750 mg tablet 750 mg PO DAILY Qty: 5 0RF Rx Instructions: dose due this evening 07/30/24 metoprolol tartrate 50 mg Tablet 50 mg PO BID 30 Days Qty: 60 0RF dutasteride 0.5 mg Capsule 0.5 mg PO DAILY atorvastatin 80 mg tablet 80 mg PO HS ondansetron 4 mg tablet,disintegrating 4 mg PO Q8H PRN (Reason: nausea and vomiting) 4 Days Qty: 12 0RF levofloxacin 750 mg tablet 750 mg PO DAILY 5 Days Qty: 5 0RF Referrals Follow up/Referrals: Ra Sosa MD [Physician, Ear, Nose, Throat] - See instructions Provider,MD Gutierrez [Referring, Medical] - See instructions Clinical Impressions Clinical Impression: DOMITILA (acute kidney injury), Pneumonia, Declining functional status, Closed fracture nasal bone Print Language Print Language: [place] Discharge ED Provider: Nick Gatica JR General Adult HPI General Chief complaint: Trauma Alert Stated complaint: Fall Time Seen by Provider: 11/29/24 08:02 History of Present Illness HPI narrative: 84-year-old male with history of COPD, on clopidogrel, on home hospice, history of heart failure, CAD, BPH, carotid artery stenosis, peripheral artery disease presenting from home for evaluation after being found down for an unknown amount of time outside. Patient reportedly fell out of his wheelchair down multiple steps on the front porch. Arrives GCS of 15 with obvious facial trauma, multiple and numerous skin abrasions, complaining of being cold. Arrives with initial temperature of 91 ?F. Arrives with airway intact, bilateral breath sounds, E-FAST negative, palpable pulses, blood pressure stable. No further complaints at this time. Td he is up-to-date. Related Data Home Medications ?Medication ?Instructions ?Recorded ?Confirmed lansoprazole 30 mg capsule,delayed 30 mg PO DAILY 09/27/22 07/27/24 release levocetirizine 5 mg tablet 5 mg PO DAILY 09/27/22 07/27/24 trazodone 100 mg tablet 100 mg PO HS 09/27/22 07/27/24 fluticasone fur. 100 mcg-umeclid 1 inh inhalation DAILY 01/29/23 07/27/24 62.5 mcg-vilant 25 mcg inhalat.powder (Trelegy Ellipta) apixaban 5 mg tablet (Eliquis) 5 mg PO BID 03/28/24 07/27/24 duloxetine 60 mg capsule,delayed 60 mg PO DAILY 03/28/24 07/27/24 release famotidine 20 mg tablet 20 mg PO DAILY 03/28/24 07/27/24 fluticasone propionate 50 1 spray intranasal DAILY 03/28/24 07/27/24 mcg/actuation nasal spray,suspension tamsulosin 0.4 mg capsule 0.4 mg PO HS 03/28/24 07/27/24 dutasteride 0.5 mg capsule 0.5 mg PO DAILY 04/29/24 07/27/24 atorvastatin 80 mg tablet 80 mg PO HS 06/29/24 07/27/24 memantine 5 mg tablet 5 mg PO BID 07/03/24 07/27/24 Previous Rx's ?Medication ?Instructions ?Recorded clopidogrel 75 mg tablet 75 mg PO DAILY 30 days #30 tabs 05/21/24 empagliflozin 10 mg tablet 10 mg PO DAILY 30 days #30 tabs 05/21/24 (Jardiance) spironolactone 25 mg tablet 25 mg PO DAILY 30 days #30 tabs 05/21/24 sacubitril 24 mg-valsartan 26 mg 1 tab PO BID #60 tabs 05/27/24 tablet (Entresto) Held on 07/30/24. Instructions: hold until follow-up with cariology oxybutynin chloride 5 mg tablet 5 mg PO BID PRN bladder spasms #60 06/01/24 tabs amiodarone 200 mg tablet 400 mg (2 x 200 mg) PO BID 30 days 07/30/24 #120 tabs hydrocodone 5 mg-acetaminophen 325 1 tab PO Q6HP PRN Mild To Moderate 07/30/24 mg tablet Pain (1-6) 3 days #11 tabs levofloxacin 750 mg tablet 750 mg PO DAILY #5 tabs 07/30/24 metoprolol tartrate 50 mg tablet 50 mg PO BID 30 days #60 tabs 07/30/24 levofloxacin 750 mg tablet 750 mg PO DAILY 5 days #5 tabs 09/02/24 ondansetron 4 mg disintegrating 4 mg PO Q8H PRN nausea and 09/02/24 tablet vomiting 4 days #12 tabs Allergies Allergy/AdvReac Type Severity Reaction Status Date / Time No Known Allergies Allergy Verified 07/03/24 10:33 [facility] Disclaimer: The information contained in this section may have been updated after the patient was seen, as this information can be updated by other users. Medical History Hemoptysis Pneumonia Atypical angina Subdural hemorrhage Swelling of lower leg Dehiscence of operative wound Obesity (BMI 30.0-34.9) Stenosis of carotid artery Left carotid bruit BPH without obstruction/lower urinary tract symptoms BPH (benign prostatic hyperplasia) CALEB (renal artery stenosis) HFrEF (heart failure with reduced ejection fraction) CHF (congestive heart failure) Dyspnea HLD (hyperlipidemia) HTN (hypertension) CAD (coronary artery disease) Abdominal aortic aneurysm CKD (chronic kidney disease) Atrial fibrillation Surgical History H/O fasciotomy Family History Other No significant family history Social History Smoking Status: Current every day smoker tobacco type: cigarettes second hand exposure: No alcohol intake: never substance use type: denies use current occupational status: retired Travel in the last 8 weeks?: Inside the [place] household members: spouse housing: house caffeine: Yes Have you lived/traveled outside US in past 30 days?: No Contact w/someone who lives/traveled outside US past 30 days?: No Exposure to someone with infectious disease in past 14 days?: No Do you have a fever (greater than 100.4 F or 38 C)?: No Have you tested positive for COVID-19?: No Exposed to someone with COVID-19 in past 14 days?: No Do you have a sore throat?: No Do you have a cough?: No Do you have any weakness?: No Do you have any diarrhea?: No Are you experiencing any unusual bleeding?: No Do you have any muscle aches/pain?: No Do you have any abdominal pain?: No Are you experiencing loss of taste or smell?: No Other Medical History Have you received the Flu Vaccine for this season: No Have you received the Pneumonia Vaccine: No ROS Obtained: Yes All systems reviewed & no additional complaints except as documented Constitutional Constitutional: Reports system reviewed and no additional complaints, except as documented and Reports as per HPI Comments: Patient feels cold Eyes Eyes: Reports system reviewed and no additional complaints, except as documented and Reports as per HPI ENT Ears, Nose, Mouth, and Throat: Reports system reviewed and no additional complaints, except as documented and Reports as per HPI Cardiovascular Cardiovascular: Reports system reviewed and no additional complaints, except as documented and Reports as per HPI Respiratory Respiratory: Reports system reviewed and no additional complaints, except as documented and Reports as per HPI Gastrointestinal Gastrointestingal: Reports system reviewed and no additional complaints, except as documented and as per HPI; Denies abdominal pain Genitourinary Male Genitourinary: Reports system reviewed and no additional complaints, except as documented and Reports as per HPI Musculoskeletal Musculoskeletal: Reports as per HPI and Reports other (Numerous skin tears. Right [id number] amputation) Neurologic Neurologic: Reports system reviewed and no additional complaints, except as documented and Reports as per HPI Physical Exam General General appearance: alert, in no apparent distress and other (Disheveled appearing) Head Head exam: other (Nasal trauma, blood to nares bilaterally) Eye Eye exam: Present PERRL and EOMI Neck Neck exam: Present tenderness and other (Tenderness to palpation to cervical spine) Chest Chest inspection: Present other (Multiple chest wall skin tears) Respiratory Respiratory exam: Present wheezes Cardiovascular Cardiovascular exam: Present regular rate and normal rhythm Abdominal Exam Abdominal exam: Present tenderness (Skin tears) Extremities Exam Extremities exam: Present other (Numerous skin tears to upper extremities and left knee. No need for sutures.) Back Exam Back exam: Present tenderness (Tenderness to palpation to cervical and thoracic spine) Neurological Exam Neurological exam: Present alert and oriented X3 Skin Skin exam: Present other (Numerous skin tears described above) Medical Decision Making Medical Records Screening: Per USPSTF and CDC recommendations, given the prevalence of disease in our region, it is our hospital?s policy to screen for HIV and viral Hepatitis for all patients aged 18 and over and those with ongoing risk factors. Anjel Inquiry Pt receiving controlled substance: No Vital Signs: 11/29/24 07:51 11/29/24 08:02 11/29/24 08:18 Temperature 91.7 F L 94.8 F L Temperature Source Rectal Pulse Rate 78 70 Pulse Rate [Left Radial] 70 Respiratory Rate 17 16 16 Blood Pressure 141/65 H 185/72 H Blood Pressure [Right Arm] 110/40 L Blood Pressure Mean [Right Arm] 63 02 Sat by Pulse Oximetry 100 79 L 99 Oxygen Delivery Method Non-Rebreather Non-Rebreather Room Air Oxygen Flow Rate (LPM) 15 15 Fraction of Inspired Oxygen 11/29/24 09:15 11/29/24 09:24 11/29/24 09:31 Temperature Temperature Source Pulse Rate 71 70 Pulse Rate [Left Radial] Respiratory Rate 21 16 Blood Pressure 165/70 H Blood Pressure [Right Arm] Blood Pressure Mean [Right Arm] 02 Sat by Pulse Oximetry 100 100 Oxygen Delivery Method BiPAP Oxygen Flow Rate (LPM) Fraction of Inspired Oxygen 30 11/29/24 09:45 11/29/24 09:50 11/29/24 10:00 Temperature 95.7 F L 95.9 F L Temperature Source Pulse Rate 70 70 Pulse Rate [Left Radial] Respiratory Rate 20 20 Blood Pressure 155/66 H 124/54 L Blood Pressure [Right Arm] Blood Pressure Mean [Right Arm] 02 Sat by Pulse Oximetry 100 98 Oxygen Delivery Method BiPAP BiPAP Oxygen Flow Rate (LPM) Fraction of Inspired Oxygen 30 11/29/24 10:15 11/29/24 10:30 11/29/24 10:45 Temperature 95.9 F L 96.1 F L 96.4 F L Temperature Source Pulse Rate 70 70 70 Pulse Rate [Left Radial] Respiratory Rate 20 20 20 Blood Pressure 111/51 L 117/58 L 110/53 L Blood Pressure [Right Arm] Blood Pressure Mean [Right Arm] 02 Sat by Pulse Oximetry 98 98 99 Oxygen Delivery Method BiPAP Non-Rebreather Non-Rebreather Oxygen Flow Rate (LPM) Fraction of Inspired Oxygen 11/29/24 11:00 11/29/24 11:15 11/29/24 11:30 Temperature 96.6 F L 96.8 F L 97.0 F L Temperature Source Pulse Rate 70 70 70 Pulse Rate [Left Radial] Respiratory Rate 21 18 18 Blood Pressure 118/55 L 118/59 L 123/49 L Blood Pressure [Right Arm] Blood Pressure Mean [Right Arm] 02 Sat by Pulse Oximetry 99 99 93 L Oxygen Delivery Method Non-Rebreather Nasal Cannula Nasal Cannula Oxygen Flow Rate (LPM) 2 2 Fraction of Inspired Oxygen Lab Data Lab Results 11/29/24 08:13: WBC 15.2 H, RBC 5.15, Hgb 15.8, Hct 49.0, MCV 95.1 H, MCH 30.7, MCHC 32.2, RDW 18.3 H, Plt Count 217, MPV 10.7 H, Neut % (Auto) 83.1 H, Lymph % (Auto) 10.0, Wolfe % (Auto) 4.9, Eos % (Auto) 0.3, Baso % (Auto) 0.3, Neut # (Auto) 12.6 H, Lymph # (Auto) 1.5, Wolfe # (Auto) 0.8, Eos # (Auto) 0.1, Baso # (Auto) 0.1, PT 11.9, INR 1.08, Sodium 137, Potassium 4.2, Chloride 102, Carbon Dioxide 25, Anion Gap 14.2, BUN 16, Creatinine 1.30 H, Estimated Creat Clear 37, Estimated GFR 53 L, Est GFR ( Amer) 64, Glucose 166 H, Calcium 9.2, Total Bilirubin 1.0, AST 299 H, ALT 288 H, Alkaline Phosphatase 194 H, Total Creatine Kinase 127, Troponin I < 0.01, Total Protein 7.2, Albumin 4.0, Globulin 3.2, Albumin/Globulin Ratio 1.3 11/29/24 08:16: VBG pH 7.20 L, VBG pCO2 61.2 H, VBG pO2 34.5, VBG HCO3 23.4, VBG Total CO2 25.3, VBG O2 Saturation 54.2, VBG Base Excess -4.6 L, VBG Lactic Acid 3.3 H 11/29/24 10:30: VBG pH 7.32, VBG pCO2 47.4, VBG pO2 51.7 H, VBG HCO3 24.1, VBG Total CO2 25.5, VBG O2 Saturation 81.3 H, VBG Base Excess -1.9, VBG Lactic Acid 2.1 H 11/29/24 08:13 11/29/24 08:13 Orders (Tests/Meds): ED MEDICATIONS Generic Name Dose Route Start Last Admin Trade Name Freq PRN Reason Stop Dose Admin Ceftriaxone Sodium 1 gm/ 50 mls @ 100 mls/hr 11/29/24 12:00 Sodium Chloride IV 12/09/24 11:59 Q24H LA Azithromycin 500 mg/ Sodium 250 mls @ 250 mls/hr 11/29/24 12:00 Chloride IV 12/09/24 11:59 Q24H LA Discontinued Medications Generic Name Dose Route Start Last Admin Trade Name Freq PRN Reason Stop Dose Admin Acetaminophen 1,000 mg 11/29/24 09:19 11/29/24 09:25 Acetaminophen 1,000mg/100ml Vial IV 11/29/24 09:20 1,000 mg ONCE ONE Administration Albuterol/Ipratropium 9 ml 11/29/24 09:17 11/29/24 09:20 Ipratropium/Albuterol 3 Ml Neb IH 11/29/24 09:18 9 ml ONCE ONE Administration Lactated Ringer's 500 mls @ 999 mls/hr 11/29/24 08:04 11/29/24 09:56 Lactated Ringer's 1000 Ml Bag IV 11/29/24 08:34 Infused .Q31M ONE Infusion Lactated Ringer's 1,000 mls @ 999 mls/hr 11/29/24 09:22 11/29/24 11:08 Lactated Ringer's 1000 Ml Bag IV 11/29/24 10:22 Infused .Q1H1M ONE Infusion Iopamidol 100 ml 11/29/24 08:41 11/29/24 08:44 Iopamidol-370 (76%);100ml Bottle IV 11/29/24 08:42 100 ml ONCE ONE Administration Iopamidol 60 ml 11/29/24 08:42 11/29/24 08:44 Iopamidol-370 (76%);100ml Bottle IV 11/29/24 08:43 60 ml ONCE ONE Administration Morphine Sulfate 2 mg 11/29/24 09:19 11/29/24 09:25 Morphine 2mg/Ml Syringe IV 11/29/24 09:20 2 mg ONCE ONE Administration Sodium Chloride 40 ml 11/29/24 08:41 11/29/24 08:43 0.9 % Sodium Chloride 50 Ml Vial IV 11/29/24 08:42 40 ml ONCE ONE Administration Sodium Chloride 10 ml 11/29/24 08:41 11/29/24 08:43 Sodium Chloride 0.9% 10ml Syr (Rad Only) IV 11/29/24 08:42 10 ml ONCE ONE Administration Sodium Chloride 40 ml 11/29/24 08:42 11/29/24 08:44 0.9 % Sodium Chloride 50 Ml Vial IV 11/29/24 08:43 40 ml ONCE ONE Administration Tetanus/Reduced Diphtheria/Acell Pertussis 0.5 ml 11/29/24 08:05 11/29/24 08:54 Tet/Diphth/Pert-Adult 0.5ml Syringe IM 11/29/24 08:06 Not Given .ONCE ONE ORDERS Category Date Time Status CT angio abd/pel - TRAUMA Stat Cat Scan 11/29/24 08:[address] angio chest - dissection Stat Cat Scan 11/29/24 08:[address] angio head Stat Cat Scan 11/29/24 08:[address] angio neck Stat Cat Scan 11/29/24 08:[address] bony pelvis Stat Cat Scan 11/29/24 08:[address] cervical spine wo con Stat Cat Scan 11/29/24 08:[address] facial bones wo con Stat Cat Scan 11/29/24 08:[address] head/brain wo con Stat Cat Scan 11/29/24 08:[address] lumbar spine wo con Stat Cat Scan 11/29/24 08:[address] thoracic spine wo con Stat Cat Scan 11/29/24 08:03 Completed Chest XR -- portable [XR chest portable] Stat Exams 11/29/24 08:00 Completed POCUS Point of Care (ER Only) Stat Exams 11/29/24 08:01 Taken Pelvis XR 1-2 views [XR pelvis 1-2V] Stat Exams 11/29/24 08:00 Completed XR elbow RT 2V Stat Exams 11/29/24 08:08 Completed XR forearm LT 2V Stat Exams 11/29/24 08:08 Completed XR forearm RT 2V Stat Exams 11/29/24 08:08 Completed XR knee LT 3V Stat Exams 11/29/24 08:08 Completed XR wrist LT 2V Stat Exams 11/29/24 08:08 Completed XR wrist RT min 3V Stat Exams 11/29/24 08:08 Completed Complete Blood Count Auto Diff Stat Lab 11/29/24 08:13 Completed Comprehensive Metabolic Panel Stat Lab 11/29/24 08:13 Completed Creatine Kinase Stat Lab 11/29/24 08:13 Completed Prothrombin Time INR Stat Lab 11/29/24 08:13 Completed Troponin I Q3H Lab 11/29/24 11:15 Ordered Troponin I Q3H Lab 11/29/24 14:15 Ordered Troponin I Stat Lab 11/29/24 08:13 Completed VBG [Venous Blood Gas] Timed RT 11/29/24 10:30 Completed Venous Blood Gas Stat RT 11/29/24 08:16 Completed Medical Decision Narrative: 84-year-old male on clopidogrel presenting as a trauma alert after falling down multiple stairs out of his wheelchair. Has history of right [id number] amputation. Arrives with multiple abrasions to face, chest, upper extremities and left lower extremity. Arrives temperature 91. With warm blankets, repeat temperature 94. Satting in the upper 90s on room air. Due to mechanism and patient being on clopidogrel, we will proceed with CT trauma imaging. Tdap is UTD. X-rays of injured extremities ordered. FAST exam negative. Airway is intact. Bilateral breath sounds appreciated. Wounds will be wrapped with bacitracin and nonadhesive gauze. labs reviewed and independently interpreted, significant for acute resp acidosis. Will place on BiPAP and repeat VBG in an hour. Does have history of COPD. Creatinine elevated to 1.3. Giving IV fluids. Chest x-ray and pelvic x-ray reviewed and independently interpreted, significant for no acute findings. Please see radiology reports for further details. CT head IMPRESSION: No acute intracranial abnormality. Atrophy and changes suggesting chronic small vessel ischemia. CTA neck IMPRESSION: 1. Less than 50% stenosis of the proximal right internal carotid artery. 2. Dense calcified plaque produces 70 to 80% luminal diameter stenosis in the left carotid bulb and proximal left internal carotid artery. 3. Antegrade flow without significant stenosis in the bilateral vertebral arteries. EKG reviewed and independently interpreted, significant for paced rhythm, no ST elevation, no STEMI. CT imaging reviewed and independently interpreted, significant for bilateral nasal bone fractures. CT chest IMPRESSION: 1. No aortic dissection, aneurysm, or mediastinal hemorrhage identified. 2. Bronchial wall thickening is present in the lower lobes bilaterally, greater on the left than on the right, more advanced since the prior CTA. There are also ground glass opacities in the right lower lobe, favor infectious/inflammatory. Patient's workup is significant for DOMITILA, pneumonia, and functional decline. Patient also has nasal bone fractures. Otherwise, trauma workup is negative. Give IV fluids for DOMITILA and ceftriaxone and azithromycin for pneumonia. Family does not feel comfortable with patient at home given his functional decline. Requesting admission. I consulted hospital medicine for admission. Critical Care Critical Care Time Critical Care Time: No
--- OUTSIDE RECORDS SUMMARY | 2024-11-29 08:06 | XMS_ITS | Encounter Summary ---
Author Organization [facility] Address [address] [place] [address] Care Team Providers Care Foundry Equipment Mechanic Name Role Phone Stefania Gilliland CLINICAL RADIOLOGIST Primary Care Provider [phone] Encounter Details Date Type Department Care Team (Late st Contact Info) Description 01/23/2023 Lab Requisition [facility] [address] [place] [address] Ramo Talbot MD [address] [facility] [address] [place] [id number] Encounter for general adult medical examination without [...] place to sleep or slept in a intermediate (including now)? No 01/19/2023 Utilities Answer Date [...] ORDERABLES Final Result Performing Organization Address City/State/[facility] Co de Phone Number [facility] [address] [place] [id number] documented in this encounter Visit Diagnoses Diagnosis [...] documented as of this encounter Care Teams Foundry Equipment Mechanic Relationship Specialty Start Date End Date Stefania Gilliland APRN [address] [place] [address] PCP - General 01/20/23 documented as of this encounter
--- OUTSIDE RECORDS SUMMARY | 2024-11-29 08:06 | XMS_ITS ---
Author Organization [facility] Address [address] [place] [address] Care Team Providers Care Health Teacher Name Role Phone Stefania Gilliland PHARMACY CONSULTANT Primary Care Provider [phone] Active Problems Problem Noted Date Diagnosed Date [...] symptoms 03/17/2023 Coronary artery disease invo lving [place] coronary artery of [place] heart without angina pectoris 03/17/2023 Abdominal aortic [...]
--- OUTSIDE RECORDS SUMMARY | 2024-11-29 08:06 | XMS_ITS | Clinical Summary ---
Author Organization [facility] Address [address] [place] [address] Care Team Providers Care Houseperson Name Role Phone Unavailable Primary Care Provider [...]
--- OUTSIDE RECORDS SUMMARY | 2024-11-29 08:06 | XMS_ITS | Clinical Summary ---
Author Organization [facility] Address [address] [place] [address] Care Team Providers Care Local Area Network Systems Adminstrator Name Role Phone Stefania Gilliland SENIOR SOURCING MANAGER Primary Care Provider [phone] Allergies No known active allergies Medications ezetimibe-simva [...] symptoms 03/17/2023 Coronary artery disease invo lving [place] coronary artery of [place] heart without angina pectoris 03/17/2023 Abdominal aortic aneurysm 03/17/2023 Obesity (BMI 30.0-34.9) 03/17/2023 CKD (chronic kidney disease) 02/14/2023 Overview (02/24/2023): - Cr 1.03 on admit - WNL S/P AKA (above knee amputation), right Overview (03/24/2023): - 02/08/23: Right above knee amputation and right groin 2: [place] removed per vascular in ED Class 2 [...] place to sleep or slept in a chcf (including now)? No 05/23/2023 CAGE ASSESSMENT Answer [...] drink first t hugo in the morning (EYE-CHAIR FRAME BUILDER) to steady your nerves or to get rid of a hangover? 0 01/29/2023 CAGE Questionnaire Score 0 023 Utilities Answer Date Recorded In the past [address], gas, oil, or water [employer] threatened to shut off services in your [...] 75+ series) 2017 UKY-Depression Screening 03/17/2024 03/17/2023 [id number] Vaccine ( season) 2024 10/14/2022, 12/27/2021, 08/30/2021, [...] this topic Medical Devices Implanted Type Area Documentation Analyst Device Identifier Shelf Expiration Date Model / Serial / Lot Graft Excluder Trnk Ipsilat 15f 14.5cm/12mm/23mm - [id number] Implanted:Qty: 1 on 01/17/2023 by Jamey Ann MD at [facility] [employer]-55035 4 10/23/2025 [id number] / [id number] / [id number] Coil Vascular 4geg4mp - [id number] Implanted:Qty: 1 on 01/17/2023 by Jamey Ann MD at [facility]838198 09/20/2027 [id number] / / [id number] Coil Vascular 6boo8gs - [id number] Implanted:Qty: 1 on 01/17/2023 by Jamey Ann MD at [facility]-[id number] 09/20/2027 [id number] / / [id number] Component Contralateral Leg 12mm 12cm - [id number] Implanted:Qty: 1 on 01/17/2023 by Jamey Ann MD at [facility] [employer]-43602 4 09/28/2025 [id number] / [id number] / [id number] Component Contralateral Leg 12mm 10cm - [id number] Implanted:Qty: 1 on 01/17/2023 by Jamey Ann MD at [facility] [employer]-25162 4 08/27/2025 [id number] / [id number] / [id number] Stent Graft Iliac [id number] Lviabahnbx - [id number] Implanted:Qty: 1 on 01/17/2023 by Jamey Ann MD at [facility] [employer]-45406 4 10/30/2025 [id number] / [id number] / [id number] Vascuguard 8 X 8 - [id number] Implanted:Qty: 1 on 01/17/2023 by Jamey Ann MD at [facility] [employer]-[id number] 7 08/24/2023 [id number] / / [id number] Vascuguard 8 X 8 - [id number] Implanted:Qty: 1 on 01/17/2023 by Jamey Ann MD at [facility] Right: Groin [employer]-18839 7 08/24/2023 [id number] / / [id number] Additional Health Concerns Infection Onset Date 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 05/19/2023 [place] [address] ANTHEM Advance Directives Documents on File Type Date Recorded Patient Capsule Filling Machine Operator Expl anation Power of Tool Procurement Coordinator 06/06/2023 8:37 AM Power of Tool Procurement Coordinator 05/25/2023 12:13 PM Power of Tool Procurement Coordinator 05/24/2023 2:25 PM Advance Directives and Livin g Will 03/22/2023 6:53 PM Power of Tool Procurement Coordinator 03/22/2023 6:53 PM * DNR/DNI (Latest Code [...] Patient has decision-making capacity? Yes Care Teams Local Area Network Systems Adminstrator Relationship Specialty Start Date End Date Stefania Gilliland APRN [address] [place] [address] [facility] - General 01/20/23
--- NOTE | 2024-11-29 08:08 | XR_ITS ---
FINAL REPORT CLINICAL HISTORY: trauma, fall FINDINGS: AP and lateral views of the right forearm are obtained. There is no prior exam for comparison. There is no acute osseous abnormality of the right forearm. The wrist and elbow are intact. The soft tissues appear normal. IMPRESSION: No acute osseous abnormality of the right forearm. Reviewed, Interpreted and Dictated by Britt Bermudez MD Transcribed by Mayela Mayes Authenticated and [facility]
--- NOTE | 2024-11-29 08:08 | XR_ITS ---
FINAL REPORT CLINICAL HISTORY: trauma, FALL FINDINGS: AP, oblique, and lateral views of the left wrist were obtained. There is no prior exam for comparison. There is no acute fracture or dislocation. There is advanced degenerative joint disease at the first CMC joint. The soft tissues are normal. IMPRESSION: No acute osseous abnormality of the left wrist. Reviewed, Interpreted and Dictated by Britt Bermudez MD Transcribed by Mayela Mayes Authenticated and . [facility]
--- NOTE | 2024-11-29 08:08 | XR_ITS ---
FINAL REPORT CLINICAL HISTORY: trauma, FALL FINDINGS: AP, oblique, and lateral views of the right wrist were obtained. There is no prior exam for comparison. There is no acute fracture or dislocation. Multijoint degenerative disease is noted. The soft tissues are normal. IMPRESSION: No acute osseous abnormality of the right wrist. Reviewed, Interpreted and Dictated by Britt Bermudez MD Transcribed by Mayela Mayes Authenticated and [facility]
--- NOTE | 2024-11-29 08:08 | XR_ITS ---
FINAL REPORT CLINICAL HISTORY: trauma, FALL FINDINGS: AP and lateral views of the left forearm are obtained. There is no prior exam for comparison. There is no acute osseous abnormality of the left forearm. The wrist and elbow are intact. The soft tissues appear normal. IMPRESSION: No acute osseous abnormality of the left forearm. Reviewed, Interpreted and Dictated by Britt Bermudez MD Transcribed by Mayela Mayes Authenticated and [facility]
--- NOTE | 2024-11-29 08:08 | XR_ITS ---
FINAL REPORT CLINICAL HISTORY: trauma, FALL FINDINGS: AP, lateral and oblique views of the left knee were obtained. There is no prior exam for comparison. There is no acute osseous abnormality of the left knee. Degenerative joint disease is noted. The soft tissues are normal. There is no joint effusion. IMPRESSION: No acute osseous abnormality of the left knee. Reviewed, Interpreted and Dictated by Britt Bermudez MD Transcribed by Mayela Mayes Authenticated and [facility]
--- NOTE | 2024-11-29 08:08 | XR_ITS ---
FINAL REPORT CLINICAL HISTORY: trauma, FALL FINDINGS: 2 views of the right elbow were obtained. There is no prior exam for comparison. There is no acute fracture or dislocation. A prominent olecranon spur is noted. There is no joint effusion. The joint spaces are intact. The soft tissues are unremarkable. IMPRESSION: No acute osseous abnormality of the right elbow. Reviewed, Interpreted and Dictated by Britt Bermudez MD Transcribed by Mayela Mayes Authenticated and [facility]
--- NOTE | 2024-11-29 08:15 | PC.NURSE ---
Full sepsis bolus given was not given due to heart failure.
[2024-11-29 08:24] LABS: VBG HCO3 23.4 mmol/L (23-30); VBG PCO2 61.2 mmol/L (35-51); VBG PO2 34.5 mmol/L (28-40)
[2024-11-29 08:25] LABS: Hematocrit 49.0 % (42.0-52.0); Hemoglobin 15.8 g/dL (14.1-18.0); Immature Granulocytes % 1.4 %; Mean Corpuscular HGB Conc 32.2 g/dL (31.8-35.4); Mean Corpuscular Hemoglobin 30.7 pg (27.0-31.2); Mean Corpuscular Volume 95.1 fl (80-94); Nucleated Red Blood Cells % 0 %; Platelet Count 217 K/mm3 (142-424); Red Blood Count 5.15 M/mm3 (4.60-6.20); Red Cell Distribution Width-SD 62.6 fL; White Blood Count 15.2 K/mm3 (4.8-10.8)
[2024-11-29 08:27] LABS: Lactate Venous 3.3 mmol/L (0.4-2.0); VBG PH 7.20 mmol/L (7.31-7.41)
[2024-11-29] MEDS: LACTATED RINGERS 1000ML 500 ML 999 ML IV (08:35)
[2024-11-29 08:36] LABS: INR 1.08 (0.9-1.1); Prothrombin Time 11.9 seconds (10.1-12.5)
[2024-11-29] MEDS: SODIUM CHLORIDE 0.9% 10ML SYR (RAD ONLY) 10 ML IV (08:43)
[2024-11-29] MEDS: 0.9 % SODIUM CHLORIDE 50 ML VIAL 40 ML IV ×2 (08:43→08:44)
[2024-11-29] MEDS: IOPAMIDOL-370 (76%);100ML BOTTLE 60 ML IV (08:44)
[2024-11-29] MEDS: IOPAMIDOL-370 (76%);100ML BOTTLE 100 ML IV (08:44)
[2024-11-29 08:54] LABS: Albumin Level 4.0 g/dl (3.5-5.0); Chloride 102 mmol/L (98-107)
[2024-11-29 08:55] LABS: Potassium 4.2 mmoL/L (3.5-5.1); Sodium 137 mmol/L (136-145)
--- NOTE | 2024-11-29 08:55 | PC.NURSE ---
trauma alert called in the field, 0746 trauma alert activated in hospital 0750 arrival 0751 airway intact, c collar on. EMS report: pt found down outside, unknown downtime outside possibly 1 hr, fall down 2 concrete steps, no temp obtained en route, no oxygen saturation obtained en route due to pt being shaky from being outside . 0753 110/40 manual 0754 FAST NEGATIVE, lacerations to bilateral chest, R AKA 0755 xray at bedside 0757 bilateral breath sounds, right forehead dried blood, bilateral nares clots, left wrist posterior skin tear, pupils equal round reactive, right hand skin tear, chest bilateral skin tear, left knee skin tear, rectal tone intact, tenderness to palpation in upper back. + pacemaker 0800 rectal 91.7, warm blankets applied. 0801 nonrebreather placed due to being unable to obtain oxygen saturation, bear hugger placed 0815 R basillic USG IV placed, blood drawn and sent 0816 temp sensing kidd placed and urine obtained 0817 141/65 NIBP, 98RA 70 HR, 17RR, 94.6 temp sensing ikdd
[2024-11-29 08:57] LABS: Alanine Aminotransferase 288 U/L (12-78); Aspartate Amino Transferase 299 U/L (17-59)
[2024-11-29 08:58] LABS: Albumin/Globulin Ratio 1.3 (1.1-1.8); Alkaline Phosphatase 194 U/L (38-126); Anion Gap 14.2 mEq/L (5-15); Bilirubin,Total 1.0 mg/dl (0.2-1.3); Calcium 9.2 mg/dl (8.4-10.2); Carbon Dioxide 25 mmol/L (22.0-30.0); Creatine Kinase 127 U/L (55-170); Globulin 3.2 g/dL (1.3-3.2); Glucose 166 mg/dl (74-100); Total Protein,Serum 7.2 g/dl (6.3-8.2)
[2024-11-29 09:05] LABS: Blood Urea Nitrogen 16 mg/dl (9-20); Creatinine Clearance Estimated 37 mL/min (50-200); Creatinine,Serum 1.30 mg/dl (0.66-1.25); Estimated Glomerular Filt Rate 53 ml/min (>60); GFR (African American) 64 ML/MIN (>60)
[2024-11-29 09:10] LABS: Troponin I < 0.01 ng/ml (0.00-0.034)
[2024-11-29] MEDS: IPRATROPIUM/ALBUTEROL 3 ML NEB 9 ML IH (09:20)
[2024-11-29] MEDS: MORPHINE 2MG/ML SYRINGE 2 MG IV (09:25)
[2024-11-29] MEDS: ACETAMINOPHEN 1,000MG/100ML VIAL 1000 MG IV (09:25)
[2024-11-29] MEDS: LACTATED RINGERS 1000ML 1,000 ML 999 ML IV (09:26)
--- NOTE | 2024-11-29 09:37 | ECG_ITS ---
APPROVED REPORT Exam: Resting ECG HR:69 bpm ECG Measurements Heart Rate 69 AXES KS 205 P 74 QRSd 155 QRS -76 QT 505 T 91 QTc 525 Conclusion ELECTRONIC ATRIAL PACEMAKER ELECTRONIC VENTRICULAR PACEMAKER ABNORMAL RHYTHM ECG Electronically signed by : LILIYA GARNICA, 12/06/2024 17:00:44
[2024-11-29 10:47] LABS: VBG HCO3 24.1 mmol/L (23-30); VBG PCO2 47.4 mmol/L (35-51); VBG PH 7.32 mmol/L (7.31-7.41); VBG PO2 51.7 mmol/L (28-40)
[2024-11-29 10:48] LABS: Lactate Venous 2.1 mmol/L (0.4-2.0)
--- NOTE | 2024-11-29 11:06 | PC.NURSE ---
call made to RAD for update on abd/pelvis CTA, locked in on scan now
--- NOTE | 2024-11-29 11:20 | PC.NURSE ---
bipap removed from pt, on room air now
--- NOTE | 2024-11-29 11:22 | CARE MANAGER ---
Addendum entered by Izabel Romero 12/02/24 09:07: Plan is for patient to discharge to [facility] w/ Hospice services today (pending [facility]). I have updated patient, Katherine w/ [facility] and Amie w/ Hospice. Addendum entered by La Humphrey RN 11/29/24 16:11: Patient was admitted. MD does not anticipate patient needing more than an overnight stay medically. He is much improved this afternoon. The patient has been accepted to [facility], but the daughter is unsure if this is what she wants to pursue and will let me or staff know. [facility] does have a bed available for patient. Original Note: Patient under Hospice care. Family requests information sent to [facility] and he is supposed to go there on Monday for a respite stay.
--- NOTE | 2024-11-29 11:46 | PC.NURSE ---
call made to RAD for status update on pts scan post graduate intern states they are still locked on scans
--- NOTE | 2024-11-29 12:00 | PC.NURSE ---
on phone with hospitalist for admission
--- NOTE | 2024-11-29 12:05 | PC.NURSE ---
pt reports he is hot. Sidney coyle removed by family. pts core temp is 97.7 F per temp sensing marti.
--- NOTE | 2024-11-29 12:09 | PC.NURSE ---
hospice nurse called to check on pt, information given on pt POC
[2024-11-29 12:19] LABS: Microscopic, Urine URINE MICROSCOPIC (MICROSCOPIC)
--- NOTE | 2024-11-29 12:21 | PC.NURSE ---
c collar removed per order
[2024-11-29 12:25] LABS: Reflex Lactic Add Lactic Reflex
[2024-11-29 12:30] LABS: Bilirubin,Urine Negative (Negative); Color,Urine YELLOW (Yellow); Glucose,Urine (UA) Negative (Negative); Ketones,Urine Negative (Negative); Leukocyte Esterase,Urine 1+ (Negative); PH,Urine 5.5 (5.0-8.5); Protein,Urine Negative (Negative); Specific Gravity, Urine 1.025 (1.005-1.030); Urobilinogen,Urine 1.0 EU/dl (0.2)
--- NOTE | 2024-11-29 12:37 | PC.NURSE ---
report called to felisha
[2024-11-29 12:46] LABS: Calcium Oxalate Crystals,Urine 1+ /lpf
--- NOTE | 2024-11-29 12:59 | EXP.HP ---
History of Present Illness *Admission Date: 11/30/24 *Reason for visit:: Fall *History of present illness: Ti Rodríguez is a 84-year-old male with a medical history significant for CAD with stents, V. tach with AICD, A-fib, PAD s/p right AKA, hypertension who presented due to multiple falls over the past week, including today. Patient states he was walking with his walker through the front door when he slipped and fell on the grass and rolled over to the cement. He denies losing consciousness and was able to yell for help at which point his daughter came to find him with multiple bruises. She called EMS who brought patient to the ED. Patient denies precipitating symptoms including dizziness, chest pain, shortness of breath. Patient is currently on hospice for ischemic cardiomyopathy. Workup in the ED significant for WBC 15.2, AST/ALT 299/288, creatinine 1.3, respiratory panel positive for rhinovirus. Trauma scans overall unremarkable, but CTA chest suggestive of viral pneumonia with superimposed right lower lobe bacterial pneumonia. He was given ceftriaxone, azithromycin. Patient had a very difficult time ambulating in the ED. Given these findings, ED provider discussed case with me and decided to admit patient for generalized weakness secondary to community-acquired pneumonia and acute viral syndrome. [facility] Disclaimer: The information contained in this section may have been updated after the patient was seen, as this information can be updated by other users. Medical History Hemoptysis Pneumonia Atypical angina Subdural hemorrhage Swelling of lower leg Dehiscence of operative wound Obesity (BMI 30.0-34.9) Stenosis of carotid artery Left carotid bruit BPH without obstruction/lower urinary tract symptoms BPH (benign prostatic hyperplasia) CALEB (renal artery stenosis) HFrEF (heart failure with reduced ejection fraction) CHF (congestive heart failure) Dyspnea HLD (hyperlipidemia) HTN (hypertension) CAD (coronary artery disease) Abdominal aortic aneurysm CKD (chronic kidney disease) Atrial fibrillation Surgical History H/O fasciotomy Family History Other No significant family history Social History (Updated 11/29/24 @ 13:25 by Barbara Jacques RN) Smoking Status: Current every day smoker tobacco type: cigarettes second hand exposure: No alcohol intake: never substance use type: denies use current occupational status: retired Travel in the last 8 weeks?: Inside the [place] household members: spouse housing: house caffeine: Yes Have you lived/traveled outside US in past 30 days?: No Contact w/someone who lives/traveled outside US past 30 days?: No Exposure to someone with infectious disease in past 14 days?: No Do you have a fever (greater than 100.4 F or 38 C)?: No Have you tested positive for COVID-19?: No Exposed to someone with COVID-19 in past 14 days?: No Do you have a sore throat?: No Do you have a cough?: No Do you have any weakness?: No Are you experiencing any nausea/vomitting?: No Do you have any diarrhea?: No Are you experiencing any unusual bleeding?: No Do you have any muscle aches/pain?: No Do you have any abdominal pain?: No Are you experiencing loss of taste or smell?: No Other Medical History Have you received the Flu Vaccine for this season: No Have you received the Pneumonia Vaccine: No Review of Systems *Neurologic Neurologic: Reports system reviewed and no additional complaints, except as documented and Reports as per [facility] Meds Home Medications and Allergies Home Medications ?Medication ?Instructions ?Recorded ?Confirmed ?Type duloxetine 60 mg capsule,delayed 60 mg PO DAILY 03/28/24 11/29/24 History release famotidine 20 mg tablet 20 mg PO DAILY 03/28/24 11/29/24 History clopidogrel 75 mg tablet 75 mg PO DAILY 30 days #30 tabs 05/21/24 11/29/24 Rx hydrocodone 5 mg-acetaminophen 325 1 tab PO Q6HP PRN Mild To Moderate 07/30/24 11/29/24 Rx mg tablet Pain (1-6) 3 days #11 tabs albuterol sulfate 2.5 mg/3 mL 2.5 mg inhalation Q4HP PRN 11/29/24 11/29/24 History (0.083 %) solution for nebulization Shortness Of Breath amiodarone 200 mg tablet 200 mg PO BID 11/29/24 11/29/24 History hyoscyamine sulfate 0.125 mg 0.125 - 0.25 mg sublingual Q4HP 11/29/24 11/29/24 History sublingual tablet PRN Secretions loperamide 2 mg capsule 2 mg PO DAILYP PRN Diarrhea 11/29/24 11/29/24 History lorazepam 0.5 mg tablet (Ativan) 0.5 mg PO Q6HP PRN Anxiety 11/29/24 11/29/24 History metoprolol tartrate 50 mg tablet 25 mg PO BID 11/29/24 11/29/24 History mirtazapine 15 mg tablet (Remeron) 7.5 mg PO HS 11/29/24 11/29/24 History morphine concentrate 100 mg/5 mL 5 mg PO Q4HP PRN Moderate Pain 11/29/24 11/29/24 History (20 mg/mL) oral solution (Scale Score 5-6) nystatin 100,000 unit/gram topical 1 applic topical TIDP PRN REDNESS 11/29/24 11/29/24 History powder ondansetron 4 mg disintegrating 4 mg PO Q8HP PRN nausea and 11/29/24 11/29/24 History tablet vomiting oxybutynin chloride 5 mg tablet 5 mg PO BIDP PRN bladder spasms 11/29/24 11/29/24 History sennosides 8.6 mg tablet (senna) 8.6 mg PO DAILYP PRN Constipation 11/29/24 11/29/24 History spironolactone 25 mg tablet 25 mg PO DAILYP PRN SWELLING 11/29/24 11/29/24 History New Prescriptions to Start Prescriptions: Allergies Allergy/AdvReac Type Severity Reaction Status Date / Time No Known Allergies Allergy Verified 07/03/24 10:33 Exam Data for Last 24 hours Vital signs and Labs for Last 24 Hours: Temp Pulse Resp BP Pulse Ox O2 Del Method O2 Flow Rate 97.5 F L 70 17 125/52 L 96 Nasal Cannula 2 11/29/24 12:15 11/29/24 12:15 11/29/24 12:15 11/29/24 12:15 11/29/24 12:15 11/29/24 11:30 11/29/24 11:30 FiO2 30 11/29/24 09:50 Laboratory Results - last 24 hr 11/29/24 08:13: WBC 15.2 H, RBC 5.15, Hgb 15.8, Hct 49.0, MCV 95.1 H, MCH 30.7, MCHC 32.2, RDW 18.3 H, Plt Count 217, MPV 10.7 H, Neut % (Auto) 83.1 H, Lymph % (Auto) 10.0, [place] % (Auto) 4.9, Eos % (Auto) 0.3, Baso % (Auto) 0.3, Neut # (Auto) 12.6 H, Lymph # (Auto) 1.5, [place] # (Auto) 0.8, Eos # (Auto) 0.1, Baso # (Auto) 0.1, PT 11.9, INR 1.08, Sodium 137, Potassium 4.2, Chloride 102, Carbon Dioxide 25, Anion Gap 14.2, BUN 16, Creatinine 1.30 H, Estimated Creat Clear 37, Estimated GFR 53 L, Est GFR ( Amer) 64, Glucose 166 H, Calcium 9.2, Total Bilirubin 1.0, AST 299 H, ALT 288 H, Alkaline Phosphatase 194 H, Total Creatine Kinase 127, Troponin I < 0.01, Total Protein 7.2, Albumin 4.0, Globulin 3.2, Albumin/Globulin Ratio 1.3 11/29/24 08:14: Urine Color Yellow, Urine Appearance Clear, Urine pH 5.5, Ur Specific [place] 1.025, Urine Protein Negative, Urine Glucose (UA) Negative, Urine Ketones Negative, Urine Blood Negative, Urine Nitrate Negative, Urine Bilirubin Negative, Urine Urobilinogen 1.0, Ur Leukocyte Esterase 1+ A, Urine RBC None, Urine WBC 5-10, Ur Squamous Epith Cells None, Calcium Oxalate Crystal 1+, Urine Bacteria None 11/29/24 08:16: VBG pH 7.20 L, VBG pCO2 61.2 H, VBG pO2 34.5, VBG HCO3 23.4, VBG Total CO2 25.3, VBG O2 Saturation 54.2, VBG Base Excess -4.6 L, VBG Lactic Acid 3.3 H 11/29/24 10:30: VBG pH 7.32, VBG pCO2 47.4, VBG pO2 51.7 H, VBG HCO3 24.1, VBG Total CO2 25.5, VBG O2 Saturation 81.3 H, VBG Base Excess -1.9, VBG Lactic Acid 2.1 H I & O for Last 24 hours: Intake & Output 11/26/24 11/27/24 11/28/24 11/29/24 23:59 23:59 23:59 23:59 Intake Total 1500 / 1500 Balance 1500 / 1500 Weight 58.967 kg Constitutional Constitutional: no acute distress Comments: Multiple bruises over face without active signs of bleeding. Pleasant, conversational. *Routine HEENT Exam Head: Present normocephalic Eye: Present EOMI and PERRL ENT: Present mucous membranes moist *Routine Neck Exam Neck: Present supple; Absent lymphadenopathy *Routine Respiratory Exam Respiratory: Present CTA bilaterally *Routine Cardiovascular Exam Cardiovascular: Present RRR *Routine Abdominal Exam Abdominal: Present soft and normoactive bowel sounds; Absent tenderness *Routine Rectal Exam Rectal:: deferred *Routine Genitalia Exam Genitalia:: deferred *Routine Extremities Exam Extremities: Absent cyanosis, clubbing or edema Comments: Right BKA *Routine Skin Exam Skin: Present warm; Absent rash *Routine Neurological Exam Neurological: Present alert and oriented X3 Assessment and Plan *Assessment and plan (1) Pneumonia: Status: Acute Qualifiers: Laterality: unspecified laterality Lung location: unspecified part of lung Pneumonia type: due to unspecified organism Qualified Code(s): J18.9 - Pneumonia, unspecified organism Category: Medical Code(s): J18.9 - Pneumonia, unspecified organism Plan Ti Rodríguez is a 84-year-old male with a medical history significant for CAD with stents, V. tach with AICD, A-fib, PAD s/p right AKA, hypertension who presented due to multiple falls over the past week, including today. Patient states he was walking with his walker through the front door when he slipped and fell on the grass and rolled over to the cement. He denies losing consciousness and was able to yell for help at which point his daughter came to find him with multiple bruises. She called EMS who brought patient to the ED. Patient denies precipitating symptoms including dizziness, chest pain, shortness of breath. Patient is currently on hospice for ischemic cardiomyopathy. Workup in the ED significant for WBC 15.2, AST/ALT 299/288, creatinine 1.3, respiratory panel positive for rhinovirus. Trauma scans overall unremarkable, but CTA chest suggestive of viral pneumonia with superimposed right lower lobe bacterial pneumonia. He was given ceftriaxone, azithromycin. Patient had a very difficult time ambulating in the ED. Given these findings, ED provider discussed case with me and decided to admit patient for generalized weakness secondary to community-acquired pneumonia and acute viral syndrome. #Generalized weakness #Physical deconditioning #Community-acquired pneumonia #Acute viral syndrome, rhinovirus ? Presented with generalized weakness, fall from wheelchair, found to have right lower lobe pneumonia in the setting of rhinovirus. ? CTA suggestive of viral pneumonia with superimposed right lower lobe bacterial pneumonia, initial WBC 15.2. ? Initial WBC 15.2 with neutrophilic predominance. However no signs of sepsis. On room air. ? Continue ceftriaxone 1 g daily, azithromycin day 15. ? Follow-up sputum, blood cultures. ? PT/OT consulted, pending further recommendations. ? Follow-up TSH, B12, folate. #Suspected viral hepatitis ? Initial AST/ALT/ALP 299/288/194. Total bilirubin normal. No abdominal pain. ? In the setting of rhinovirus. Will continue to monitor. ? Patient is also on amiodarone, may be sequelae of renal dysfunction. Will consider discontinuing if worsens. ? Follow-up hepatitis panel. #DOMITILA ? Initial creatinine 1.3, baseline 1.0. Patient tolerating p.o. intakes, follow-up morning RFT's. #CAD with stents #PAD s/p right BKA ? Continue home Plavix, hold statin due to acute hepatitis. #History of V. tach with AICD #A-fib #Hypertension ? Continue home metoprolol, amiodarone once reconciled. ? Hold anticoagulation due to history of recurrent falls. DNR/DNI DVT prophylaxis: IPC's
--- NOTE | 2024-11-29 14:17 | HMH.PHAINT1 ---
Pharmacy Intervention Comments: MEDICATION RECONCILIATION COMPLETED ON PATIENT USING MAR FROM HOSPICE. -SUJIT CLARKE, DANAD
--- NOTE | 2024-11-29 14:39 | PC.NURSE ---
pictures of wounds obtained and uploaded to EHR. nonadherent pads/kerlix applied to open areas. bed alarm on, call light in reach.
--- NOTE | 2024-11-29 14:53 | PC.WOUNDNOTE ---
SKIN TEARS NOTED TO CHEST SKIN TEAR NOTED TO LFA SKIN TEAR NOTED TO RFA ABRASIONS NOTED LEFT KNEE ABRASION NOTED TO LEFT UPPER BACK ABRASION NOTED TO RIGHT SIDE OF HEAD ABRASION NOTED TO LEFT HIP
--- NOTE | 2024-11-29 15:02 | PC.NURSE ---
assumed care of pt at 1500 from FERNANDA BOOTH
[2024-11-29] MEDS: AZITHROMYCIN 500 MG in 0.9 % SODIUM CHLORIDE 250 ML 250 MG IV (16:02)
[2024-11-29 16:23] LABS: Adenovirus,PCR Not Detected (NotDetected); Chlamydophila Pneumoniae, PCR Not Detected (NotDetected); Coronavirus 19, PCR Not Detected (NotDetected); Coronovirus HKU1,PCR Not Detected (NotDetected); Influenza A, PCR Not Detected (NotDetected); Influenza AH1, 2009 Not Detected (NotDetected); Influenza AH1, PCR Not Detected (NotDetected); Influenza AH3,PCR Not Detected (NotDetected); Influenza B, PCR Not Detected (NotDetected); Mycoplasma Pneumoniae, PCR Not Detected (NotDetected); Parainfluenza 1, PCR Not Detected (NotDetected); Parainfluenza 2, PCR Not Detected (NotDetected); Parainfluenza 3, PCR Not Detected (NotDetected); Parainfluenza 4, PCR Not Detected (NotDetected)
[2024-11-30] VITALS (7 sets, daily range): BP systolic 117–183; BP diastolic 51–84; PULSE 70; RESP 14–16; TEMP 36.6–37; O2SAT 94–97; BMI 19.4
--- NOTE | 2024-11-30 04:20 | PC.NURSE ---
Pt AOx4 with intermittent confusion. There have been no acute changes at this point in the shift. Currently resting in bed with eyes open. BM per bedpan. Respirations even and unlabored. Bed low, locked, and call light is in reach.
[2024-11-30 08:57] LABS: Hematocrit 42.8 % (42.0-52.0); Hemoglobin 13.5 g/dL (14.1-18.0); Immature Granulocytes % 0.5 %; Mean Corpuscular HGB Conc 31.5 g/dL (31.8-35.4); Mean Corpuscular Hemoglobin 29.7 pg (27.0-31.2); Mean Corpuscular Volume 94.3 fl (80-94); Nucleated Red Blood Cells % 0 %; Platelet Count 176 K/mm3 (142-424); Red Blood Count 4.54 M/mm3 (4.60-6.20); Red Cell Distribution Width-SD 63.1 fL; White Blood Count 10.6 K/mm3 (4.8-10.8)
[2024-11-30 09:12] LABS: Alanine Aminotransferase 424 U/L (12-78); Albumin Level 3.3 g/dl (3.5-5.0); Albumin/Globulin Ratio 1.3 (1.1-1.8); Alkaline Phosphatase 162 U/L (38-126); Anion Gap 13.1 mEq/L (5-15); Aspartate Amino Transferase 364 U/L (17-59); Bilirubin,Total 1.0 mg/dl (0.2-1.3); Blood Urea Nitrogen 13 mg/dl (9-20); Calcium 8.6 mg/dl (8.4-10.2); Carbon Dioxide 23 mmol/L (22.0-30.0); Chloride 106 mmol/L (98-107); Creatinine Clearance Estimated 47 mL/min (50-200); Creatinine,Serum 1.00 mg/dl (0.66-1.25); Estimated Glomerular Filt Rate 72 ml/min (>60); GFR (African American) 87 ML/MIN (>60); Globulin 2.5 g/dL (1.3-3.2); Glucose 119 mg/dl (74-100); Magnesium 2.2 mg/dl (1.6-2.3); Potassium 4.1 mmoL/L (3.5-5.1); Sodium 138 mmol/L (136-145); Total Protein,Serum 5.8 g/dl (6.3-8.2)
[2024-11-30 09:15] LABS: Iron 56 ug/dL (49-181)
[2024-11-30 09:25] LABS: Total Iron Binding Capacity 221 ug/dL (261-462)
[2024-11-30 09:26] LABS: Free T4 (Free Thyroxine) 2.46 ng/dl (0.78-2.19)
[2024-11-30] MEDS: CLOPIDOGREL 75MG TAB 75 MG PO (09:28)
[2024-11-30] MEDS: METOPROLOL TARTRATE 25MG TABLET 25 MG PO ×2 (09:28→20:34)
[2024-11-30] MEDS: AMIODARONE 200MG TABLET 200 MG PO (09:28)
[2024-11-30 09:40] LABS: Thyroid Stimulating Hormone 0.61 uIU/mL (0.465-4.68)
[2024-11-30 09:52] LABS: Ferritin 752 ng/ml (17.9-464)
[2024-11-30 10:06] LABS: Vitamin B12 758 pg/mL (239-931)
[2024-11-30 10:29] LABS: Hemoglobin A1C 5.1 % (4.0-6.0)
[2024-11-30 10:30] LABS: Folate 6.27 ng/mL
[2024-11-30] MEDS: AZITHROMYCIN 500 MG in 0.9 % SODIUM CHLORIDE 250 ML 250 MG IV (12:31)
[2024-11-30] MEDS: HYDROCODONE/APAP 5/325 MG TABLET 1 TAB PO (12:36)
[2024-11-30] MEDS: SODIUM CHLORIDE 3% 15ML NEB 3 ML IH (13:37)
--- NOTE | 2024-11-30 14:40 | HMH.PTEV ---
Physical Therapy Evaluation Rehab PT IP Evaluation Start: 11/29/24 21:57 Freq: ONCE Status: Active Protocol: Document 11/30/24 14:33 FERNANDO (Rec: 11/30/24 14:40 FERNANDO [id number]) Subjective/History History History 84-year-old male on clopidogrel presenting as a trauma alert after falling down multiple stairs out of his wheelchair. Has history of right [id number] amputation. Arrives with multiple abrasions to face, chest, upper extremities and left lower extremity. Arrives temperature 91. With warm blankets, repeat temperature 94. Satting in the upper 90s on room air. Due to mechanism and patient being on clopidogrel, we will proceed with CT trauma imaging. Tdap is UTD. X- rays of injured extremities ordered. Subjective Subjective Pt is oriented to person only. Pt's family provide majority of subjective history. Pt is a right AKA. Pt does not have a prosthetic limb. At baseline, pt is non -ambulatory. He uses a wheelchair for all mobility. Prior to hospitalization, the pt was able to independently transfer from bed to/from wheelchair. Per family, he has been progressively weakening and has been unable to perform bed mobility independently for the past few weeks. New diagnosis of No cancer in past 12 months? [facility] How much help from another person do you currently need... Turning from your A little back to your side while in a flat bed without using bedrails? Moving from lying on A little back to sitting on the side of a flat bed without using bedrails? Moving to and from a A lot bed to a chair ( including a wheelchair)? Standing up from a A lot chair using your arms? (e.g., wheelchair, bedside chair) Walking in hospital Total room? Climbing 3-5 steps Total with a railing? Mobility Score 12 Mobility Level [facility] Mobility 4 Move to chair/commode Mobility Calculator Rehab PT IP Eval Objective Appearance Patient Behavior Confused Patient Orientation Person Difficulty following mild instructions Speech Pattern Patient Baseline Ambulation Patient Able to No Ambulate Balance Ability to Arise Unable Sitting Balance Steady, safe Transfers Bed Transfer Ability Moderate x 1 (50% assist) Rehab PT IP prob,goals,plan Problems Date of Evaluation: 11/30/24 PT IP Problems Bed Mobility,Transfers,Gait,Balance,Self care,Safety Rehab Potential Rehab Potential Fair Plan PT Intervention Plan Bed Mobility,Transfers,Gait,Balance,Self care,Safety, Therapeutic Exercise PT Plan Frequency Daily Duration LOS Discharge Goals Bed Transfer Ability Supervision/Stand by Sit to Stand Chair Minimal x 1 (25% assist) Transfer Ability Discharge Plan PT Discharge Plan Pt presents below baseline in functional mobility including transfers and bed mobility at this time. The pt would benefit from skilled PT during his acute stay in order to address these impairments and to promote a safe discharge from the hospital. Pt's family is unable to provide the appropriate level of assistance that is required for a discharge to home. Pt would best benefit from a transfer to a SNF for further rehab when deemed medically stable for a discharge. Eval Complexity Eval Charge Codes 96063 - High Complexity PHYSICIAN CERTIFICATION: I certify the specified therapy services for Ti Rodríguez are required, authorized, and reviewed every 30 days.
--- NOTE | 2024-11-30 16:56 | EXP.PN ---
Subjective *Date: 11/30/24 *Time: 16:56 Interval history: Patient continues to be very weak, unable to ambulate or transfer well. Continue treatment of pneumonia. PT recommended SNF. Case management assisting. Exam Data for Last 24 hours Vital signs and Labs for Last 24 Hours: Temp Pulse Resp BP Pulse Ox O2 Del Method O2 Flow Rate 98.4 F 70 16 130/58 L 97 Room Air 2 11/30/24 16:00 11/30/24 16:00 11/30/24 16:00 11/30/24 16:00 11/30/24 16:00 11/30/24 16:00 11/29/24 11:30 FiO2 30 11/29/24 09:50 Laboratory Results - last 24 hr 11/29/24 16:00: Chlamy pneumoniae PCR Not detected, Adenovirus (PCR) Not detected, B. pertussis DNA (PCR) Not detected, Coronavirus OC43 (PCR) Not detected, Coronavirus HKU1 (PCR) Not detected, Coronavirus 229E (PCR) Not detected, SARS-CoV-2 (PCR) Not detected, Coronavirus NL63 (PCR) Not detected, Human Metapneumovir PCR Not detected, Influenza A (H1) PCR Not detected, Influ A (H1N1/09) PCR Not detected, Influenza A (H3) PCR Not detected, Influenza Type A (PCR) Not detected, Influenza Type B (PCR) Not detected, M. pneumoniae (PCR) Not detected, Parainfluenza 1 (PCR) Not detected, Parainfluenza 2 (PCR) Not detected, Parainfluenza 3 (PCR) Not detected, Parainfluenza 4 (PCR) Not detected, RSV (PCR) Not detected, Entero/Rhino (PCR) Detected A 11/30/24 08:30: WBC 10.6 D, RBC 4.54 L, Hgb 13.5 L, Hct 42.8, MCV 94.3 H, MCH 29.7, MCHC 31.5 L, RDW 18.3 H, Plt Count 176, MPV 10.5 H, Neut % (Auto) 74.5, Lymph % (Auto) 17.2, [place] % (Auto) 7.4, Eos % (Auto) 0.1, Baso % (Auto) 0.3, Neut # (Auto) 7.9 H, Lymph # (Auto) 1.8, [place] # (Auto) 0.8, Eos # (Auto) 0.0, Baso # (Auto) 0.0, Sodium 138, Potassium 4.1, Chloride 106, Carbon Dioxide 23, Anion Gap 13.1, BUN 13, Creatinine 1.00 D, Estimated Creat Clear 47, Estimated GFR 72, Est GFR ( Amer) 87 D, Glucose 119 H, Hemoglobin A1c 5.1, Calcium 8.6, Magnesium 2.2, Iron 56, TIBC 221 L, Iron Saturation 25.35279, Ferritin 752 H, Total Bilirubin 1.0, AST 364 H*, ALT 424 H*, Alkaline Phosphatase 162 H, Total Protein 5.8 L, Albumin 3.3 L D, Globulin 2.5, Albumin/Globulin Ratio 1.3, Vitamin B12 758, Folate 6.27, TSH 0.61, Free T4 2.46 H I & O for Last 24 hours: Intake & Output 11/27/24 11/28/24 11/29/24 11/30/24 23:59 23:59 23:59 23:59 Intake Total 1960 / 1960 630 / 630 Output Total 650 / 650 700 / 700 Balance 1310 / 1310 -70 / -70 Weight 58.967 kg 58.151 kg Microbiology Reports for the Last 24 Hours: Microbiology 11/29/24 12:04 Blood Blood Culture - Preliminary NO GROWTH AFTER 24 HOURS 11/29/24 12:19 Blood Blood Culture - Preliminary NO GROWTH AFTER 24 HOURS Constitutional Constitutional: no acute distress Comments: Very pleasant, multiple bruises on face without active signs of bleeding. *Routine HEENT Exam Head: Present normocephalic Eye: Present EOMI and PERRL ENT: Present mucous membranes moist *Routine Neck Exam Neck: Present supple; Absent lymphadenopathy *Routine Respiratory Exam Respiratory: Present CTA bilaterally *Routine Cardiovascular Exam Cardiovascular: Present RRR *Routine Abdominal Exam Abdominal: Present soft and normoactive bowel sounds; Absent tenderness *Routine Extremities Exam Extremities: Absent cyanosis, clubbing or edema Comments: Right BKA. *Routine Skin Exam Skin: Present warm; Absent rash *Routine Neurological Exam Neurological: Present alert and oriented X3 Assessment and Plan *Assessment and plan (1) Pneumonia: Status: Acute Qualifiers: Laterality: unspecified laterality Lung location: unspecified part of lung Pneumonia type: due to unspecified organism Qualified Code(s): J18.9 - Pneumonia, unspecified organism Category: Medical Code(s): J18.9 - Pneumonia, unspecified organism Plan Ti Rodríguez is a 84-year-old male with a medical history significant for CAD with stents, V. tach with AICD, A-fib, PAD s/p right AKA, hypertension who presented due to multiple falls over the past week, including today. Patient states he was walking with his walker through the front door when he slipped and fell on the grass and rolled over to the cement. He denies losing consciousness and was able to yell for help at which point his daughter came to find him with multiple bruises. She called EMS who brought patient to the ED. Patient denies precipitating symptoms including dizziness, chest pain, shortness of breath. Patient is currently on hospice for ischemic cardiomyopathy. Workup in the ED significant for WBC 15.2, AST/ALT 299/288, creatinine 1.3, respiratory panel positive for rhinovirus. Trauma scans overall unremarkable, but CTA chest suggestive of viral pneumonia with superimposed right lower lobe bacterial pneumonia. He was given ceftriaxone, azithromycin. Patient had a very difficult time ambulating in the ED. Given these findings, ED provider discussed case with me and decided to admit patient for generalized weakness secondary to community-acquired pneumonia and acute viral syndrome. #Generalized weakness #Physical deconditioning #Community-acquired pneumonia #Acute viral syndrome, rhinovirus ? Presented with generalized weakness, fall from wheelchair, found to have right lower lobe pneumonia in the setting of rhinovirus. ? CTA chest on 11/29/2024 suggestive of viral pneumonia with superimposed right lower lobe bacterial pneumonia, initial WBC 15.2. ? Initial WBC 15.2 with neutrophilic predominance. However no signs of sepsis. On room air. ? WBC improved to 10.6 today. Patient feels slightly better, but continues to be very weak. ? Continue ceftriaxone 1 g daily, azithromycin day 2/5 in the setting of weakness. ? Follow-up sputum, blood cultures. ? PT/OT consulted, recommended SNF due to profound weakness. Case management assisting with placement. ? TSH, B12, folate normal. #Suspected viral hepatitis ? Initial AST/ALT/ALP 299/288/194. Total bilirubin normal. No abdominal pain. ? AST/ALT T/ALP up to 364/424/162. ? Ordered LR 500 mL bolus. Continue with LR at 75 mL/h. ? In the setting of rhinovirus. Will continue to monitor. ? Will hold amiodarone as patient is also having thyroid dysfunction. ? Follow-up hepatitis panel. #Thyroid dysfunction ? Elevated free T42.46, TSH borderline low 0.61. In the setting of amiodarone. ? Will hold amiodarone due to multiorgan dysfunction. #DOMITILA ? Initial creatinine 1.3, baseline 1.0. Patient tolerating p.o. intakes, follow-up morning RFT's. #CAD with stents #PAD s/p right BKA ? Continue home Plavix, hold statin due to acute hepatitis. #History of V. tach with AICD #A-fib #Hypertension ? Continue home metoprolol tartrate 25 mg twice daily, held home amiodarone as above due to multiorgan dysfunction. ? Hold anticoagulation due to history of recurrent falls. DNR/DNI DVT prophylaxis: IPC's
[2024-11-30] MEDS: LACTATED RINGERS 1000ML 500 ML IV (17:14)
--- NOTE | 2024-11-30 17:52 | PC.NURSE ---
Pt has been alert to self, birthday, and time only this shift. Vital signs stable tolerating room air. Family reports that pt does have intermittent confusion at home. IV abx infused per MAR. IV fluid bolus infusing at this time. Pt has right AKA. Left SCD in place. Pt complains of generalized pain all over . PRN pain medication given per MAR. Pt has scattered bruising, abrasions, and skin tears all over- see nursing wound note. Dressings in place. Mcnair in place. Pt has been offered to be turned and repositioned. Pt refused. Pt resting comfortably in bed with no further needs voiced at this time. Bed alarm in place. Call light within reach.
[2024-11-30] MEDS: LACTATED RINGERS 1000ML 1,000 ML 75 ML IV (18:17)
[2024-11-30] MEDS: MIRTAZAPINE 15 MG TABLET 7.5 MG PO (20:35)
[2024-12-01] VITALS: BP 128/66; PULSE 73; RESP 16; TEMP 36.8; O2SAT 99
[2024-12-01 04:00] VITALS: BP 131/82; PULSE 70; RESP 17; TEMP 36.5; O2SAT 95; BMI 20.5
--- NOTE | 2024-12-01 05:16 | PC.NURSE ---
Pt. is alert and orientated x 3, name, birthday, age, . Pt. also able to answer questions at start of shift. Pt. had some intermittent confusion overnight. Pt. is on room air. Pt has scattered bruises, skin tears, abrasions all over body. see wound care notes. dressing in place, clean and dry and intact. Pt. has a right leg AKA. SCUD to left leg for VTE. Pt. very weak. needs help to turn. has refused turns but shifted hips side to side. Pt. has a kidd cath in place draining clean yellow urine. Pt. denies any pain at this time. This RN has asked him multiple times about pain and he denies. Pt. has IVF running as per ordered. Personal items and call smith in reach. Bed in low and locked position. safety measures in place.
[2024-12-01] MEDS: LACTATED RINGERS 1000ML 1,000 ML 75 ML IV (06:13)
[2024-12-01 07:02] LABS: Hematocrit 40.0 % (42.0-52.0); Hemoglobin 12.9 g/dL (14.1-18.0); Immature Granulocytes % 0.6 %; Mean Corpuscular HGB Conc 32.3 g/dL (31.8-35.4); Mean Corpuscular Hemoglobin 30.4 pg (27.0-31.2); Mean Corpuscular Volume 94.1 fl (80-94); Nucleated Red Blood Cells % 0 %; Platelet Count 166 K/mm3 (142-424); Red Blood Count 4.25 M/mm3 (4.60-6.20); Red Cell Distribution Width-SD 62.4 fL; White Blood Count 6.6 K/mm3 (4.8-10.8)
[2024-12-01 07:07] LABS: Albumin Level 2.9 g/dl (3.5-5.0); Chloride 106 mmol/L (98-107); Potassium 3.9 mmoL/L (3.5-5.1); Sodium 137 mmol/L (136-145)
[2024-12-01 07:10] LABS: Alanine Aminotransferase 317 U/L (12-78); Albumin/Globulin Ratio 1.2 (1.1-1.8); Alkaline Phosphatase 135 U/L (38-126); Anion Gap 6.9 mEq/L (5-15); Aspartate Amino Transferase 189 U/L (17-59); Bilirubin,Total 0.8 mg/dl (0.2-1.3); Blood Urea Nitrogen 10 mg/dl (9-20); Calcium 8.4 mg/dl (8.4-10.2); Carbon Dioxide 28 mmol/L (22.0-30.0); Creatinine Clearance Estimated 49 mL/min (50-200); Creatinine,Serum 0.80 mg/dl (0.66-1.25); Estimated Glomerular Filt Rate 93 ml/min (>60); GFR (African American) 112 ML/MIN (>60); Globulin 2.5 g/dL (1.3-3.2); Glucose 107 mg/dl (74-100); Magnesium 2.1 mg/dl (1.6-2.3); Total Protein,Serum 5.4 g/dl (6.3-8.2)
[2024-12-01 07:53] VITALS: BP 156/72; PULSE 71; RESP 18; TEMP 36.8; O2SAT 96
[2024-12-01] MEDS: METOPROLOL TARTRATE 25MG TABLET 25 MG PO ×2 (08:35→20:32)
[2024-12-01] MEDS: CLOPIDOGREL 75MG TAB 75 MG PO (08:35)
[2024-12-01] MEDS: AZITHROMYCIN 500 MG in 0.9 % SODIUM CHLORIDE 250 ML 250 MG IV (11:52)
--- NOTE | 2024-12-01 15:33 | P.PN_ITS ---
Subjective *Date: 12/02/24 *Time: 00:25 Interval history: Patient continues to be quite weak, even with physical therapy. Denies chest pain, shortness of breath. Continue antibiotics follow-up tomorrow. Exam Data for Last 24 hours Vital signs and Labs for Last 24 Hours: Temp Pulse Resp BP Pulse Ox O2 Del Method O2 Flow Rate 98.3 F 71 18 156/72 H 96 Room Air 2 12/01/24 07:53 12/01/24 07:53 12/01/24 07:53 12/01/24 07:53 12/01/24 07:53 12/01/24 15:00 11/29/24 11:30 FiO2 30 11/29/24 09:50 Laboratory Results - last 24 hr 12/01/24 06:37: WBC 6.6 D, RBC 4.25 L, Hgb 12.9 L, Hct 40.0 L, MCV 94.1 H, MCH 30.4, MCHC 32.3, RDW 18.2 H, Plt Count 166, MPV 10.3, Neut % (Auto) 74.2, Lymph % (Auto) 15.5, [place] % (Auto) 8.2, Eos % (Auto) 1.2, Baso % (Auto) 0.3, Neut # (Auto) 4.9, Lymph # (Auto) 1.0, [place] # (Auto) 0.5, Eos # (Auto) 0.1, Baso # (Auto) 0.0, Sodium 137, Potassium 3.9, Chloride 106, Carbon Dioxide 28, Anion Gap 6.9, BUN 10, Creatinine 0.80, Estimated Creat Clear 49, Estimated GFR 93, Est GFR ( Amer) 112 D, Glucose 107 H, Calcium 8.4, Magnesium 2.1, Total Bilirubin 0.8, AST 189 H D, ALT 317 H*, Alkaline Phosphatase 135 H, Total Protein 5.4 L, Albumin 2.9 L D, Globulin 2.5, Albumin/Globulin Ratio 1.2 I & O for Last 24 hours: Intake & Output 11/28/24 11/29/24 11/30/24 12/01/24 23:59 23:59 23:59 23:59 Intake Total 1960 / 1960 1130 / 1250 2975.00 / 2975.00 Output Total 650 / 650 900 / 1150 1075 / 1075 Balance 1310 / 1310 230 / 100 1900.00 / 1900.00 Weight 58.967 kg 58.151 kg 61.326 kg Microbiology Reports for the Last 24 Hours: Microbiology 11/29/24 12:19 Blood Blood Culture - Preliminary NO GROWTH AFTER 48 HOURS 11/29/24 12:04 Blood Blood Culture - Preliminary NO GROWTH AFTER 48 HOURS 11/29/24 08:14 Urine,Clean Catch Urine Culture - Final NO GROWTH AFTER 48 HOURS Constitutional Constitutional: no acute distress Comments: Very pleasant, multiple bruises on face without active signs of bleeding. *Routine HEENT Exam Head: Present normocephalic Eye: Present EOMI and PERRL ENT: Present mucous membranes moist *Routine Neck Exam Neck: Present supple; Absent lymphadenopathy *Routine Respiratory Exam Respiratory: Present CTA bilaterally *Routine Cardiovascular Exam Cardiovascular: Present RRR *Routine Abdominal Exam Abdominal: Present soft and normoactive bowel sounds; Absent tenderness *Routine Extremities Exam Extremities: Absent cyanosis, clubbing or edema Comments: Right BKA. *Routine Skin Exam Skin: Present warm; Absent rash *Routine Neurological Exam Neurological: Present alert and oriented X3 Assessment and Plan *Assessment and plan (1) Pneumonia: Status: Acute Qualifiers: Laterality: unspecified laterality Lung location: unspecified part of lung Pneumonia type: due to unspecified organism Qualified Code(s): J18.9 - Pneumonia, unspecified organism Category: Medical Code(s): J18.9 - Pneumonia, unspecified organism Plan Ti Rodríguez is a 84-year-old male with a medical history significant for CAD with stents, V. tach with AICD, A-fib, PAD s/p right AKA, hypertension who presented due to multiple falls over the past week, including today. Patient states he was walking with his walker through the front door when he slipped and fell on the grass and rolled over to the cement. He denies losing consciousness and was able to yell for help at which point his daughter came to find him with multiple bruises. She called EMS who brought patient to the ED. Patient denies precipitating symptoms including dizziness, chest pain, shortness of breath. Patient is currently on hospice for ischemic cardiomyopathy. Workup in the ED significant for WBC 15.2, AST/ALT 299/288, creatinine 1.3, respiratory panel positive for rhinovirus. Trauma scans overall unremarkable, but CTA chest suggestive of viral pneumonia with superimposed right lower lobe bacterial pneumonia. He was given ceftriaxone, azithromycin. Patient had a very difficult time ambulating in the ED. Given these findings, ED provider discu ssed case with me and decided to admit patient for generalized weakness secondary to community-acquired pneumonia and acute viral syndrome. #Generalized weakness #Physical deconditioning #Community-acquired pneumonia #Acute viral syndrome, rhinovirus ? Presented with generalized weakness, fall from wheelchair, found to have right lower lobe pneumonia in the setting of rhinovirus. ? CTA chest on 11/29/2024 suggestive of viral pneumonia with superimposed right lower lobe bacterial pneumonia. ? Initial WBC 15.2 with neutrophilic predominance. However no signs of sepsis. On room air. ? WBC improved to 10.6 today. Patient feels slightly better, but continues to be very weak. ? Continue ceftriaxone 1 g daily, azithromycin day 2/5 in the setting of weakness. ? Follow-up sputum, blood cultures. ? PT/OT consulted, recommended SNF due to profound weakness. Case management assisting with placement. ? TSH, B12, folate normal. #Suspected viral hepatitis ? Initial AST/ALT/ALP 299/288/194. Total bilirubin normal. No abdominal pain. ? AST/ALT T/ALP up to 364/424/162. ? Ordered LR 500 mL bolus. Continue with LR at 75 mL/h. ? In the setting of rhinovirus. Will continue to monitor. ? Will hold amiodarone as patient is also having thyroid dysfunction. ? Follow-up hepatitis panel. #Thyroid dysfunction ? Elevated free T42.46, TSH borderline low 0.61. In the setting of amiodarone. ? Will hold amiodarone due to multiorgan dysfunction. #DOMITILA ? Initial creatinine 1.3, baseline 1.0. Patient tolerating p.o. intakes, follow-up morning RFT's. #CAD with stents #PAD s/p right BKA ? Continue home Plavix, hold statin due to acute hepatitis. #History of V. tach with AICD #A-fib #Hypertension ? Continue home metoprolol tartrate 25 mg twice daily, held home amiodarone as above due to multiorgan dysfunction. ? Hold anticoagulation due to history of recurrent falls. DNR/DNI DVT prophylaxis: IPC's
[2024-12-01 16:00] VITALS: BP 148/61; PULSE 64; RESP 18; TEMP 36.8; O2SAT 96
--- NOTE | 2024-12-01 16:41 | PC.NURSE ---
Pt is A&Ox4. Pt was able to answer all orientation questions correctly this AM. Pt does have intermittent confusion at times. Mcnair catheter in place with adequate urinary output. IV abx infused per APR. Pt has scattered bruises, abrasions, and skin tears-see nursing wound note. Dressings in place. No complaints of pain this shift. Pt has right AKA. Left SCD in place. Pt offered turns and repositioning. Pt refused. Pt resting comfortably supine in bed with no further complaints at this time. Bed alarm in place. Call light within reach.
[2024-12-01 20:00] VITALS: BP 147/61; PULSE 71; RESP 16; TEMP 36.8; O2SAT 98
[2024-12-01] MEDS: MIRTAZAPINE 15 MG TABLET 7.5 MG PO (20:32)
--- NOTE | 2024-12-01 23:00 | EXP.PN ---
Subjective *Date: 12/02/24 *Time: 00:26 Interval history: Patient doing okay, no acute concerns. Pending placement. Continues to be quite weak requiring therapy. Exam Data for Last 24 hours Vital signs and Labs for Last 24 Hours: Temp Pulse Resp BP Pulse Ox O2 Del Method O2 Flow Rate 97.9 F 70 16 142/61 H 95 Room Air 2 12/02/24 00:00 12/02/24 00:00 12/02/24 00:00 12/02/24 00:00 12/02/24 00:00 12/02/24 00:00 11/29/24 11:30 FiO2 30 11/29/24 09:50 Laboratory Results - last 24 hr 12/01/24 06:37: WBC 6.6 D, RBC 4.25 L, Hgb 12.9 L, Hct 40.0 L, MCV 94.1 H, MCH 30.4, MCHC 32.3, RDW 18.2 H, Plt Count 166, MPV 10.3, Neut % (Auto) 74.2, Lymph % (Auto) 15.5, [place] % (Auto) 8.2, Eos % (Auto) 1.2, Baso % (Auto) 0.3, Neut # (Auto) 4.9, Lymph # (Auto) 1.0, [place] # (Auto) 0.5, Eos # (Auto) 0.1, Baso # (Auto) 0.0, Sodium 137, Potassium 3.9, Chloride 106, Carbon Dioxide 28, Anion Gap 6.9, BUN 10, Creatinine 0.80, Estimated Creat Clear 49, Estimated GFR 93, Est GFR ( Amer) 112 D, Glucose 107 H, Calcium 8.4, Magnesium 2.1, Total Bilirubin 0.8, AST 189 H D, ALT 317 H*, Alkaline Phosphatase 135 H, Total Protein 5.4 L, Albumin 2.9 L D, Globulin 2.5, Albumin/Globulin Ratio 1.2 I & O for Last 24 hours: Intake & Output 11/29/24 11/30/24 12/01/24 12/02/24 23:59 23:59 23:59 23:59 Intake Total 1960 / 1960 1130 / 1250 3215.00 / 3215.00 Output Total 650 / 650 900 / 1150 1225 / 1225 0 / 0 Balance 1310 / 1310 230 / 100 / 0 / 0 Weight 58.967 kg 58.151 kg 61.326 kg Microbiology Reports for the Last 24 Hours: Microbiology 11/29/24 12:19 Blood Blood Culture - Preliminary NO GROWTH AFTER 48 HOURS 11/29/24 12:04 Blood Blood Culture - Preliminary NO GROWTH AFTER 48 HOURS 11/29/24 08:14 Urine,Clean Catch Urine Culture - Final NO GROWTH AFTER 48 HOURS Constitutional Constitutional: no acute distress Comments: Very pleasant, multiple bruises on face without active signs of bleeding. *Routine HEENT Exam Head: Present normocephalic Eye: Present EOMI and PERRL ENT: Present mucous membranes moist *Routine Neck Exam Neck: Present supple; Absent lymphadenopathy *Routine Respiratory Exam Respiratory: Present CTA bilaterally *Routine Cardiovascular Exam Cardiovascular: Present RRR *Routine Abdominal Exam Abdominal: Present soft and normoactive bowel sounds; Absent tenderness *Routine Extremities Exam Extremities: Absent cyanosis, clubbing or edema Comments: Right BKA. *Routine Skin Exam Skin: Present warm; Absent rash *Routine Neurological Exam Neurological: Present alert and oriented X3 Assessment and Plan *Assessment and plan (1) Pneumonia: Status: Acute Qualifiers: Laterality: unspecified laterality Lung location: unspecified part of lung Pneumonia type: due to unspecified organism Qualified Code(s): J18.9 - Pneumonia, unspecified organism Category: Medical Code(s): J18.9 - Pneumonia, unspecified organism Plan Ti Rodríguez is a 84-year-old male with a medical history significant for CAD with stents, V. tach with AICD, A-fib, PAD s/p right AKA, hypertension who presented due to multiple falls over the past week, including today. Patient states he was walking with his walker through the front door when he slipped and fell on the grass and rolled over to the cement. He denies losing consciousness and was able to yell for help at which point his daughter came to find him with multiple bruises. She called EMS who brought patient to the ED. Patient denies precipitating symptoms including dizziness, chest pain, shortness of breath. Patient is currently on hospice for ischemic cardiomyopathy. Workup in the ED significant for WBC 15.2, AST/ALT 299/288, creatinine 1.3, respiratory panel positive for rhinovirus. Trauma scans overall unremarkable, but CTA chest suggestive of viral pneumonia with superimposed right lower lobe bacterial pneumonia. He was given ceftriaxone, azithromycin. Patient had a very difficult time ambulating in the ED. Given these findings, ED provider discussed case with me and decided to admit patient for generalized weakness secondary to community-acquired pneumonia and acute viral syndrome. #Generalized weakness #Physical deconditioning #Community-acquired pneumonia #Acute viral syndrome, rhinovirus ? Presented with generalized weakness, fall from wheelchair, found to have right lower lobe pneumonia in the setting of rhinovirus. ? CTA chest on 11/29/2024 suggestive of viral pneumonia with superimposed right lower lobe bacterial pneumonia. ? Initial WBC 15.2 with neutrophilic predominance. However no signs of sepsis. On room air. ? WBC improved to 6.6 today. Patient again feels slightly better, but continues to be very weak. ? Continue ceftriaxone 1 g daily, azithromycin day 3/5 in the setting of weakness. ? Follow-up sputum, blood cultures. ? PT/OT consulted, recommended SNF due to profound weakness. Case management assisting with placement. ? TSH, B12, folate normal. #Suspected viral hepatitis ? Initial AST/ALT/ALP 299/288/194. Total bilirubin normal. No abdominal pain. ? AST/ALT/ALP improving to 189/317/135. Maintenance fluids stopped as patient is tolerating p.o. intake. ? In the setting of rhinovirus. Will continue to monitor. ? Will hold amiodarone as patient is also having thyroid dysfunction. ? Follow-up hepatitis panel. #Thyroid dysfunction ? Elevated free T42.46, TSH borderline low 0.61. In the setting of amiodarone. ? Will hold amiodarone due to multiorgan dysfunction. ? Cardiology consulted for further recommendations. #DOMITILA ? Initial creatinine 1.3, baseline 1.0. Patient tolerating p.o. intakes, follow-up morning RFT's.?Creatinine improved to 0.80. #CAD with stents #PAD s/p right BKA ? Continue home Plavix, hold statin due to acute hepatitis. #History of V. tach with AICD #A-fib #Hypertension ? Continue home metoprolol tartrate 25 mg twice daily, held home amiodarone as above due to multiorgan dysfunction. ? Hold anticoagulation due to history of recurrent falls. DNR/DNI DVT prophylaxis: IPC's
[2024-12-02] VITALS: BP 142/61; PULSE 70; RESP 16; TEMP 36.6; O2SAT 95
[2024-12-02 04:00] VITALS: BP 149/71; PULSE 71; RESP 16; TEMP 36.8; O2SAT 97; BMI 20.7
--- NOTE | 2024-12-02 04:19 | PC.NURSE ---
Pt has remained alert and oriented with some confusion throughout the night. Pts kidd did begin to leak. Hospitalist notified and said to remove and see if pt is able to urinate by himself. He has had 150 ml output since removing. Bladder scan showed 44ml. He has had no complaints of pain. Currently resting with bed alarm in place.
[2024-12-02 06:47] LABS: Hematocrit 39.5 % (42.0-52.0); Hemoglobin 12.6 g/dL (14.1-18.0); Immature Granulocytes % 0.4 %; Mean Corpuscular HGB Conc 31.9 g/dL (31.8-35.4); Mean Corpuscular Hemoglobin 30.1 pg (27.0-31.2); Mean Corpuscular Volume 94.5 fl (80-94); Nucleated Red Blood Cells % 0 %; Platelet Count 157 K/mm3 (142-424); Red Blood Count 4.18 M/mm3 (4.60-6.20); Red Cell Distribution Width-SD 62.1 fL; White Blood Count 6.7 K/mm3 (4.8-10.8)
[2024-12-02 07:04] LABS: Albumin Level 2.8 g/dl (3.5-5.0); Chloride 105 mmol/L (98-107); Sodium 135 mmol/L (136-145)
[2024-12-02 07:05] LABS: Potassium 3.3 mmoL/L (3.5-5.1)
[2024-12-02 07:07] LABS: Alanine Aminotransferase 235 U/L (12-78); Albumin/Globulin Ratio 1.1 (1.1-1.8); Alkaline Phosphatase 168 U/L (38-126); Anion Gap 8.3 mEq/L (5-15); Aspartate Amino Transferase 100 U/L (17-59); Bilirubin,Total 0.6 mg/dl (0.2-1.3); Blood Urea Nitrogen 7 mg/dl (9-20); Carbon Dioxide 25 mmol/L (22.0-30.0); Creatinine Clearance Estimated 50 mL/min (50-200); Creatinine,Serum 0.80 mg/dl (0.66-1.25); Estimated Glomerular Filt Rate 93 ml/min (>60); GFR (African American) 112 ML/MIN (>60); Globulin 2.5 g/dL (1.3-3.2); Total Protein,Serum 5.3 g/dl (6.3-8.2)
[2024-12-02 07:08] LABS: Calcium 8.2 mg/dl (8.4-10.2); Glucose 145 mg/dl (74-100); Magnesium 1.9 mg/dl (1.6-2.3)
--- NOTE | 2024-12-02 07:48 | EXP.PHA.PN ---
Subjective *Date: 12/02/24 *Time: 07:48 Medical Exam Vital signs and Labs for Last 24 Hours: Vital Signs Temp Pulse Resp BP Pulse Ox O2 Del Method 12/02/24 06:37 Room Air 12/02/24 05:00 Room Air 12/02/24 04:00 98.2 F 71 16 149/71 H 97 Room Air 12/02/24 03:00 Room Air 12/02/24 01:00 Room Air 12/02/24 00:00 97.9 F 70 16 142/61 H 95 Room Air 12/01/24 23:00 Room Air 12/01/24 21:00 Room Air 12/01/24 20:00 Room Air 12/01/24 20:00 98.3 F 71 16 147/61 H 98 Room Air 12/01/24 18:45 Room Air 12/01/24 17:00 Room Air 12/01/24 16:00 98.2 F 64 18 148/61 H 96 Room Air 12/01/24 15:00 Room Air 12/01/24 13:00 Room Air 12/01/24 11:00 Room Air 12/01/24 09:00 Room Air 12/01/24 08:00 Room Air 12/01/24 07:53 98.3 F 71 18 156/72 H 96 Intake and Output 12/01/24 12/01/24 12/02/24 15:59 23:59 07:59 Intake Total 1600.00 / 3215.00 240 / 3215.00 Output Total 775 / 1525 0 / 1525 650 / 650 Balance 825.00 / 1690.00 240 / 1690.00 -650 / -650 Intake: Intake, Oral Amount 300 / 1020 240 / 1020 Intake, Total IV Amount 1300.00 / 2195.00 Azithromycin 500 mg In 0.9 % 250 / 250 Sodium Chloride 250 ml @ 250 mls/hr IV Q24H [place] Rx#:[id number] Ceftriaxone Sodium 1 gm In 0.9 50 / 50 % Sodium Chloride 50 ml @ 100 mls/hr IV Q24H LA Rx#:[id number] Lactated Ringers 1000ML 1,000 1000.00 / 1895.00 ml @ 75 mls/hr IV .[id number] [place] Rx#:[id number] Output: Output, Urine Amount 775 / 1275 0 / 1275 650 / 650 Other: Number of Unmeasured Voids 0 1 0 Number of Bowel Movements 2 Weight 62.278 kg Patient Weight 12/02/24 23:59 Weight 62.278 kg Laboratory Results - last 24 hr 12/02/24 06:12: WBC 6.7, RBC 4.18 L, Hgb 12.6 L, Hct 39.5 L, MCV 94.5 H, MCH 30.1, MCHC 31.9, RDW 17.8 H, Plt Count 157, MPV 11.4 H, Neut % (Auto) 68.3, Lymph % (Auto) 22.1, [place] % (Auto) 7.5, Eos % (Auto) 1.3, Baso % (Auto) 0.4, Neut # (Auto) 4.6, Lymph # (Auto) 1.5, [place] # (Auto) 0.5, Eos # (Auto) 0.1, Baso # (Auto) 0.0, Sodium 135 L, Potassium 3.3 L, Chloride 105, Carbon Dioxide 25, Anion Gap 8.3, BUN 7 L D, Creatinine 0.80, Estimated Creat Clear 50, Estimated GFR 93, Est GFR ( Amer) 112, Glucose 145 H D, Calcium 8.2 L, Magnesium 1.9, Total Bilirubin 0.6, AST 100 H D, ALT 235 H D, Alkaline Phosphatase 168 H, Total Protein 5.3 L, Albumin 2.8 L, Globulin 2.5, Albumin/Globulin Ratio 1.1 I & O for Labs for Last 24 Hours: Intake & Output 11/29/24 11/30/24 12/01/24 12/02/24 23:59 23:59 23:59 23:59 Intake Total 1959 / 1959 1130 / 1250 3215.00 / 3215.00 Output Total 650 / 650 900 / 1150 1225 / 1525 650 / 650 Balance 1310 / 1310 230 / 100 1990.00 / 1690.00 -650 / -650 Weight 58.967 kg 58.151 kg 61.326 kg 62.278 kg Microbiology Reports for the Last 24 Hours: Microbiology 11/29/24 12:19 Blood Blood Culture - Preliminary NO GROWTH AFTER 48 HOURS 11/29/24 12:04 Blood Blood Culture - Preliminary NO GROWTH AFTER 48 HOURS 11/29/24 08:14 Urine,Clean Catch Urine Culture - Final NO GROWTH AFTER 48 HOURS The patient's infection will respond to the chosen ABx?: Yes (BLOOD AND URINE CX NO GROWTH, SPUTUM UNCOLLECTED, AFEBRILE OVER 24 HR) Is the patient receiving the right drug, dose, and route?: Yes Could a more targeted ABx be ordered?: No How long ABx needed (days)?: 5
[2024-12-02 07:59] VITALS: BP 169/76; PULSE 70; RESP 18; TEMP 37; O2SAT 95
[2024-12-02] MEDS: AZITHROMYCIN 250MG TABLET 500 MG PO (08:48)
[2024-12-02] MEDS: METOPROLOL TARTRATE 25MG TABLET 25 MG PO (08:49)
[2024-12-02] MEDS: POTASSIUM CHLORIDE 20MEQ TAB 40 MEQ PO ×2 (08:49→12:04)
[2024-12-02] MEDS: CLOPIDOGREL 75MG TAB 75 MG PO (08:49)
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
[2024-12-02 11:39] LABS: Cholesterol 194 mg/dl (140-200); HDL Cholesterol 29 mg/dl (40-60); Triglycerides 156 mg/dl (30-150)
--- NOTE | 2024-12-02 12:07 | EXP.DC.SUM ---
General Admission date:: 11/29/24 Discharge date: 12/02/24 HPI HPI HPI: Ti Rodríguez is a 84-year-old male with a medical history significant for CAD with stents, V. tach with AICD, A-fib, PAD s/p right AKA, hypertension who presented due to multiple falls over the past week, including today. Patient states he was walking with his walker through the front door when he slipped and fell on the grass and rolled over to the cement. He denies losing consciousness and was able to yell for help at which point his daughter came to find him with multiple bruises. She called EMS who brought patient to the ED. Patient denies precipitating symptoms including dizziness, chest pain, shortness of breath. Patient is currently on hospice for ischemic cardiomyopathy. Workup in the ED significant for WBC 15.2, AST/ALT 299/288, creatinine 1.3, respiratory panel positive for rhinovirus. Trauma scans overall unremarkable, but CTA chest suggestive of viral pneumonia with superimposed right lower lobe bacterial pneumonia. He was given ceftriaxone, azithromycin. Patient had a very difficult time ambulating in the ED. Given these findings, ED provider discussed case with me and decided to admit patient for generalized weakness secondary to community-acquired pneumonia and acute viral syndrome. Hospital Course Hospital Course Hospital Course: Ti Rodríguez is a 84-year-old male with a medical history significant for CAD with stents, V. tach with AICD, A-fib, PAD s/p right AKA, hypertension who presented due to multiple falls over the past week, including day of admission. Patient states he was walking with his walker through the front door when he slipped and fell on the grass and rolled over to the cement. He denied losing consciousness and was able to yell for help at which point his daughter came to find him with multiple bruises. She called EMS who brought patient to the ED. Patient denied precipitating symptoms including dizziness, chest pain, shortness of breath. Patient is currently on hospice for ischemic cardiomyopathy. Workup in the ED significant for WBC 15.2, AST/ALT 299/288, creatinine 1.3, respiratory panel positive for rhinovirus. Trauma scans overall unremarkable, but CTA chest suggestive of viral pneumonia with superimposed right lower lobe bacterial pneumonia. He was given ceftriaxone, azithromycin. Patient had a very difficult time ambulating in the ED. Given these findings, ED provider discussed case with me and decided to admit patient for generalized weakness secondary to community-acquired pneumonia and acute viral syndrome. #Generalized weakness #Physical deconditioning #Community-acquired pneumonia #Acute viral syndrome, rhinovirus ? Presented with generalized weakness, fall from wheelchair, found to have right lower lobe pneumonia in the setting of rhinovirus. ? CTA chest on 11/29/2024 suggestive of viral pneumonia with superimposed right lower lobe bacterial pneumonia. ? Initial WBC 15.2 with neutrophilic predominance. However no signs of sepsis. On room air. WBC day of discharge 6.7. ? WBC improved to 6.6 today. Patient again feels slightly better, but continues to be very weak. ? Patient will complete 5 days of antibiotics, azithromycin 500 mg daily and cefdinir 300 mg twice daily. Patient completed 4/5 days during admission. Will discharge home on 1 more day of antibiotics for a total of 5. ? Blood and sputum cultures show no growth after 48 hours.. ? PT/OT consulted, recommended SNF due to profound weakness. Patient has been accepted to hospice respite home for 5 days at discharge. ? TSH, B12, folate normal. #Suspected viral hepatitis ? Initial AST/ALT/ALP 299/288/194. Total bilirubin normal. No abdominal pain. Trending downward AST 100, ALT 235. ? Patient tolerating p.o. intake without issue. ? In the setting of rhinovirus. Will continue to monitor. ? Will hold amiodarone as patient is also having thyroid dysfunction. ? Follow-up hepatitis panel. #Thyroid dysfunction ? Elevated free T42.46, TSH borderline low 0.61. In the setting of amiodarone. ? Cardiology consulted, agree with holding amiodarone, continue metoprolol 25 mg twice daily. #DOMITILA, resolved ? Initial creatinine 1.3, baseline 1.0. BUN 7, creatinine 0.80-day of discharge. #CAD with stents #PAD s/p right BKA ? Continue home Plavix 75 mg daily. #History of V. tach with AICD #A-fib #Hypertension ? Continue home metoprolol tartrate 25 mg twice daily, held home amiodarone as above due to multiorgan dysfunction. Total time spent on discharge 35 minutes in counseling, documentation, chart review, and direct care with patient. Exam Data for Last 24 hours Vital signs and Labs for Last 24 Hours: Temp Pulse Resp BP Pulse Ox O2 Del Method O2 Flow Rate 98.6 F 70 18 169/76 H 95 Room Air 2 12/02/24 07:59 12/02/24 07:59 12/02/24 07:59 12/02/24 07:59 12/02/24 07:59 12/02/24 11:00 11/29/24 11:30 FiO2 30 11/29/24 09:50 Laboratory Results - last 24 hr 12/02/24 06:12: WBC 6.7, RBC 4.18 L, Hgb 12.6 L, Hct 39.5 L, MCV 94.5 H, MCH 30.1, MCHC 31.9, RDW 17.8 H, Plt Count 157, MPV 11.4 H, Neut % (Auto) 68.3, Lymph % (Auto) 22.1, [place] % (Auto) 7.5, Eos % (Auto) 1.3, Baso % (Auto) 0.4, Neut # (Auto) 4.6, Lymph # (Auto) 1.5, [place] # (Auto) 0.5, Eos # (Auto) 0.1, Baso # (Auto) 0.0, Sodium 135 L, Potassium 3.3 L, Chloride 105, Carbon Dioxide 25, Anion Gap 8.3, BUN 7 L D, Creatinine 0.80, Estimated Creat Clear 50, Estimated GFR 93, Est GFR ( Amer) 112, Glucose 145 H D, Calcium 8.2 L, Magnesium 1.9, Total Bilirubin 0.6, AST 100 H D, ALT 235 H D, Alkaline Phosphatase 168 H, Total Protein 5.3 L, Albumin 2.8 L, Globulin 2.5, Albumin/Globulin Ratio 1.1, Triglycerides 156 H, Cholesterol 194, LDL Cholesterol Direct 124.15, VLDL Cholesterol 31, HDL Cholesterol 29 L, Cholesterol/HDL Ratio 6.7 H Temp Pulse Resp BP Pulse Ox O2 Del Method O2 Flow Rate 98.6 F 70 18 169/76 H 95 Room Air 2 12/02/24 07:59 12/02/24 07:59 12/02/24 07:59 12/02/24 07:59 12/02/24 07:59 12/02/24 09:00 11/29/24 11:30 FiO2 30 11/29/24 09:50 Laboratory Results - last 24 hr 12/02/24 06:12: WBC 6.7, RBC 4.18 L, Hgb 12.6 L, Hct 39.5 L, MCV 94.5 H, MCH 30.1, MCHC 31.9, RDW 17.8 H, Plt Count 157, MPV 11.4 H, Neut % (Auto) 68.3, Lymph % (Auto) 22.1, [place] % (Auto) 7.5, Eos % (Auto) 1.3, Baso % (Auto) 0.4, Neut # (Auto) 4.6, Lymph # (Auto) 1.5, [place] # (Auto) 0.5, Eos # (Auto) 0.1, Baso # (Auto) 0.0, Sodium 135 L, Potassium 3.3 L, Chloride 105, Carbon Dioxide 25, Anion Gap 8.3, BUN 7 L D, Creatinine 0.80, Estimated Creat Clear 50, Estimated GFR 93, Est GFR ( Amer) 112, Glucose 145 H D, Calcium 8.2 L, Magnesium 1.9, Total Bilirubin 0.6, AST 100 H D, ALT 235 H D, Alkaline Phosphatase 168 H, Total Protein 5.3 L, Albumin 2.8 L, Globulin 2.5, Albumin/Globulin Ratio 1.1 I & O for Last 24 hours: Intake & Output 11/29/24 11/30/24 12/01/24 12/02/24 23:59 23:59 23:59 23:59 Intake Total 1959 1130 / 1250 3215.00 / 3215.00 270 / 270 Output Total 650 / 650 900 / 1150 1225 / 1525 650 / 650 Balance 1310 / 1310 230 / 100 -380 / -380 Weight 58.967 kg 58.151 kg 61.326 kg 62.278 kg Intake & Output 11/29/24 11/30/24 12/01/24 12/02/24 23:59 23:59 23:59 23:59 Intake Total 1959 1130 / 1250 3215.00 / 3215.00 270 / 270 Output Total 650 / 650 900 / 1150 1225 / 1525 650 / 650 Balance 1310 / 1310 230 / 100 1690. -380 / -380 Weight 130 lb 128 lb 3.2 oz 135 lb 3.2 oz 137 lb 4.8 oz Microbiology Reports for the Last 24 Hours: Microbiology 11/29/24 12:19 Blood Blood Culture - Preliminary NO GROWTH AFTER 48 HOURS 11/29/24 12:04 Blood Blood Culture - Preliminary NO GROWTH AFTER 48 HOURS Microbiology 11/29/24 12:19 Blood Blood Culture - Preliminary NO GROWTH AFTER 48 HOURS 11/29/24 12:04 Blood Blood Culture - Preliminary NO GROWTH AFTER 48 HOURS Constitutional Constitutional: no acute distress, average body habitus, chronically ill appearing and cooperative *Routine HEENT Exam Head: Present normocephalic Eye: Present EOMI ENT: Present other (Abrasions on face) *Routine Neck Exam Neck: Present supple *Routine Respiratory Exam Respiratory: Present CTA bilaterally, normal respiratory effort and able to speak in complete sentences *Routine Cardiovascular Exam Cardiovascular: Present RRR, Normal S1 and Normal S2 *Routine Abdominal Exam Abdominal: Present soft and normoactive bowel sounds; Absent tenderness *Routine Extremities Exam Extremities: Present full ROM; Absent edema *Routine Skin Exam Skin: Present dry; Absent rash Comments: Scattered bruising/abrasions from fall *Routine Neurological Exam Neurological: Present alert, oriented X3 and normal speech Results Data Completed and Pending Labs on day of discharge: Labs from last 24 hours 12/02/24 06:12 WBC 6.7 RBC 4.18 L Hgb 12.6 L Hct 39.5 L MCV 94.5 H MCH 30.1 MCHC 31.9 RDW 17.8 H Plt Count 157 MPV 11.4 H Neut % (Auto) 68.3 Lymph % (Auto) 22.1 [place] % (Auto) 7.5 Eos % (Auto) 1.3 Baso % (Auto) 0.4 Neut # (Auto) 4.6 Lymph # (Auto) 1.5 [place] # (Auto) 0.5 Eos # (Auto) 0.1 Baso # (Auto) 0.0 Sodium 135 L Potassium 3.3 L Chloride 105 Carbon Dioxide 25 Anion Gap 8.3 BUN 7 L D Creatinine 0.80 Estimated Creat Clear 50 Estimated GFR 93 Est GFR ( Amer) 112 Glucose 145 H D Calcium 8.2 L Magnesium 1.9 Total Bilirubin 0.6 AST 100 H D ALT 235 H D Alkaline Phosphatase 168 H Total Protein 5.3 L Albumin 2.8 L Globulin 2.5 Albumin/Globulin Ratio 1.1 Triglycerides 156 H Cholesterol 194 LDL Cholesterol Direct 124.15 VLDL Cholesterol 31 HDL Cholesterol 29 L Cholesterol/HDL Ratio 6.7 H Preliminary micro results at discharge 11/29/24 12:19 Blood Culture - Preliminary Blood NO GROWTH AFTER 48 HOURS 11/29/24 12:04 Blood Culture - Preliminary Blood NO GROWTH AFTER 48 HOURS DS: Diagnosis Discharge Diagnosis (1) CAD (coronary artery disease): Status: Chronic Code(s): I25.10 - Atherosclerotic heart disease of [place] coronary artery without angina pectoris Qualifiers: Coronary Disease-Associated Artery/Lesion type: [place] artery [place] vs. transplanted heart: [place] heart Associated angina: without angina Qualified Code(s): I25.10 - Atherosclerotic heart disease of [place] coronary artery without angina pectoris (2) HTN (hypertension): Status: Chronic Code(s): I10 - Essential (primary) hypertension Qualifiers: Hypertension type: essential hypertension Qualified Code(s): I10 - Essential (primary) hypertension (3) HLD (hyperlipidemia): Status: Chronic Code(s): E78.5 - Hyperlipidemia, unspecified Qualifiers: Hyperlipidemia type: mixed hyperlipidemia Qualified Code(s): E78.2 - Mixed hyperlipidemia (4) PAD (peripheral artery disease): Status: Chronic Code(s): I73.9 - Peripheral vascular disease, unspecified (5) Stenosis of carotid artery: Status: Acute Code(s): I65.29 - Occlusion and stenosis of unspecified carotid artery Qualifiers: Laterality: bilateral Qualified Code(s): I65.23 - Occlusion and stenosis of bilateral carotid arteries (6) HFrEF (heart failure with reduced ejection fraction): Status: Acute Code(s): I50.20 - Unspecified systolic (congestive) heart failure (7) AICD (automatic cardioverter/defibrillator) present: Status: Acute Code(s): Z95.810 - Presence of automatic (implantable) cardiac defibrillator (8) Pneumonia: Status: Acute Code(s): J18.9 - Pneumonia, unspecified organism Qualifiers: Laterality: unspecified laterality Lung location: unspecified part of lung Pneumonia type: due to unspecified organism Qualified Code(s): J18.9 - Pneumonia, unspecified organism (9) Declining functional status: Status: Acute Code(s): R53.81 - Other [place] Meds Home Medications and Allergies Home Medications ?Medication ?Instructions ?Recorded ?Confirmed ?Type duloxetine 60 mg capsule,delayed 60 mg PO DAILY 03/28/24 11/29/24 History release famotidine 20 mg tablet 20 mg PO DAILY 03/28/24 11/29/24 History clopidogrel 75 mg tablet 75 mg PO DAILY 30 days #30 tabs 05/21/24 11/29/24 Rx hydrocodone 5 mg-acetaminophen 325 1 tab PO Q6HP PRN Mild To Moderate 07/30/24 11/29/24 Rx mg tablet Pain (1-6) 3 days #11 tabs albuterol sulfate 2.5 mg/3 mL 2.5 mg inhalation Q4HP PRN 11/29/24 11/29/24 History (0.083 %) solution for nebulization Shortness Of Breath hyoscyamine sulfate 0.125 mg 0.125 - 0.25 mg sublingual Q4HP 11/29/24 11/29/24 History sublingual tablet PRN Secretions loperamide 2 mg capsule 2 mg PO DAILYP PRN Diarrhea 11/29/24 11/29/24 History lorazepam 0.5 mg tablet (Ativan) 0.5 mg PO Q6HP PRN Anxiety 11/29/24 11/29/24 History metoprolol tartrate 50 mg tablet 25 mg PO BID 11/29/24 11/29/24 History mirtazapine 15 mg tablet (Remeron) 7.5 mg PO HS 11/29/24 11/29/24 History morphine concentrate 100 mg/5 mL 5 mg PO Q4HP PRN Moderate Pain 11/29/24 11/29/24 History (20 mg/mL) oral solution (Scale Score 5-6) nystatin 100,000 unit/gram topical 1 applic topical TIDP PRN REDNESS 11/29/24 11/29/24 History powder ondansetron 4 mg disintegrating 4 mg PO Q8HP PRN nausea and 11/29/24 11/29/24 History tablet vomiting oxybutynin chloride 5 mg tablet 5 mg PO BIDP PRN bladder spasms 11/29/24 11/29/24 History sennosides 8.6 mg tablet (senna) 8.6 mg PO DAILYP PRN Constipation 11/29/24 11/29/24 History spironolactone 25 mg tablet 25 mg PO DAILYP PRN SWELLING 11/29/24 11/29/24 History azithromycin 250 mg tablet 500 mg (2 x 250 mg) PO DAILY 1 day 12/02/24 Rx #2 tabs cefdinir 300 mg capsule 300 mg PO BID #2 caps 12/02/24 Rx New Prescriptions to Start Prescriptions: Makenzie Choudhary cefdinir Makenzie Healy Allergies Allergy/AdvReac Type Severity Reaction Status Date / Time No Known Allergies Allergy Verified 07/03/24 10:33 Discharge Plan Disposition Patient Disposition: Hospice - Medical Facility Condition: Good Discharge Order Discharge Orders: Discharge Order (Routine); Ordered 12/02/24 Ordered By: Makenzie Healy Follow up Plan Follow up with: Stefania Pagan APRN [Primary Care Provider, Medical] - Enter time for follow up Prescriptions/Medication Reconciliation: New azithromycin 250 mg Tablet 500 mg PO DAILY 1 Days Qty: 2 0RF cefdinir 300 mg capsule 300 mg PO BID Qty: 2 0RF Continued famotidine 20 mg tablet 20 mg PO DAILY duloxetine 60 mg capsule,delayed release(DR/EC) 60 mg PO DAILY clopidogrel 75 mg Tablet 75 mg PO DAILY 30 Days Qty: 30 0RF hydrocodone-acetaminophen 5-325 mg Tablet 1 tab PO Q6HP PRN (Reason: Mild To Moderate Pain (1-6)) 3 Days Qty: 11 0RF morphine concentrate 100 mg/5 mL (20 mg/mL) Solution 5 mg PO Q4HP PRN (Reason: Moderate Pain (Scale Score 5-6)) lorazepam [Ativan] 0.5 mg Tablet 0.5 mg PO Q6HP PRN (Reason: Anxiety) spironolactone 25 mg tablet 25 mg PO DAILYP PRN (Reason: SWELLING) metoprolol tartrate 50 mg tablet 25 mg PO BID sennosides [senna] 8.6 mg Tablet 8.6 mg PO DAILYP PRN (Reason: Constipation) albuterol sulfate 2.5 mg /3 mL (0.083 %) Solution For Nebulization 2.5 mg INHALATION Q4HP PRN (Reason: Shortness Of Breath) loperamide 2 mg Capsule 2 mg PO DAILYP PRN (Reason: Diarrhea) Rx Instructions: administer after each loose stool until symptoms controlled; do not exceed 8 mg per 24 hrs hyoscyamine sulfate 0.125 mg Tablet, Sublingual 0.125 - 0.25 mg SUBLINGUAL Q4HP PRN (Reason: Secretions) mirtazapine [Remeron] 15 mg Tablet 7.5 mg PO HS nystatin 100,000 unit/gram Powder 1 applic TOPICAL TIDP PRN (Reason: REDNESS) oxybutynin chloride 5 mg tablet 5 mg PO BIDP PRN (Reason: bladder spasms) ondansetron 4 mg tablet,disintegrating 4 mg PO Q8HP PRN (Reason: nausea and vomiting) Discontinued amiodarone 200 mg tablet 200 mg PO BID Problem Reconciliation Problems Reviewed?: Yes Patient Discharge Instructions ACTIVITY: Ambulate as tolerated and Up with assistance DIET: continue same diet Patient Instructions: DI for Pneumonia in Adults, DI for Muscle Weakness, Catheter-Associated Urinary Tract Infection, Stop Light Pneumonia, Stop Light Infection Print Language: Dive[place] Providers Primary Care Provider: Stefania Pagan Admit Provider: Carroll Catalan Attending Provider: Carroll Catalan
== END 2024-12-02 14:51 | disposition hospice, inpatient (51) | DRG 193 ==
LOC: ER 12:10 → 2ND 12:24
PROVIDERS: Nurse Practitioner Family; Admitting Provider Student in an Organized Health Care Education/Training Program; Emergency Provider Student in an Organized Health Care Education/Training Program; PCP Nurse Practitioner Family; Visit Provider Student in an Organized Health Care Education/Training Program
DX: J12.89 Other viral pneumonia (principal); J96.02 Acute respiratory failure with hypercapnia; B19.9 Unspecified viral hepatitis without hepatic coma; N17.9 Acute kidney failure, unspecified; I50.22 Chronic systolic (congestive) heart failure; J44.0 Chronic obstructive pulmonary disease with (acute) lower respiratory infection; J15.9 Unspecified bacterial pneumonia; I11.0 Hypertensive heart disease with heart failure; I25.10 Atherosclerotic heart disease of native coronary artery without angina pectoris; I48.91 Unspecified atrial fibrillation; I73.9 Peripheral vascular disease, unspecified; I25.5 Ischemic cardiomyopathy; E07.9 Disorder of thyroid, unspecified; E78.2 Mixed hyperlipidemia; I65.23 Occlusion and stenosis of bilateral carotid arteries; B97.89 Other viral agents as the cause of diseases classified elsewhere; F17.210 Nicotine dependence, cigarettes, uncomplicated; R53.81 Other malaise; R53.1 Weakness; R29.6 Repeated falls; Z66 Do not resuscitate; Z95.810 Presence of automatic (implantable) cardiac defibrillator; Z95.5 Presence of coronary angioplasty implant and graft; Z89.611 Acquired absence of right leg above knee; Z79.02 Long term (current) use of antithrombotics/antiplatelets; Z79.899 Other long term (current) drug therapy
CPT/HCPCS: 0223U; 36415; 51702; 70450; 70486; 70496; 70498; 71045; 71275; 72125; 72128; 72131; 72170; 72192; 73070; 73090; 73100; 73110; 73562; 74174; 80053; 80061; 80074; 81001; 82550; 82607; 82728; 82746; 82803; 83036; 83540; 83550; 83735; 84439; 84443; 84484; 85025; 85610; 87040; 87086; 89220; 93005; 97163; 97165; 97530; 99285; G0390; J0131; J0456; J0696; J2270; J7050; J7120; Q9967